=== PATIENT | male | born 1955 | race Caucasian/White ===

== ENCOUNTER → 2016-03-31 | Outpatient (CLI) | payer OTHER ==
[~2016-03-31] MED LIST: ALL180 PO; ASCO1CHW17 PO; CHOLTAB3 PO; CYAN1DRO INJ; FLINTSTONES PO; FURO20TA PO; IRON PO; NAPR1TAB9 PO; OMEP20CA9 PO; OXYBUTYNIN CL PO; POTA-327 PO; VIT D PO; WARF-284 PO; WARF10TA PO; [UNRECOGNIZED DRUG - OTHER] PO
== END | disposition home or self-care (01) ==
LOC: C.LABBFT 13:47
PROVIDERS: ATTEND Internal Medicine
DX: Z11.59 Encounter for screening for other viral diseases (principal)

== ENCOUNTER 2016-12-03 14:17 | Inpatient (IN) | payer OTHER ==
[~2016-12-03] VITALS: Ht 188 cm; Wt 178.3 kg
--- NOTE | 2016-12-03 15:26 | EMERGENCY ROOM VISIT NOTE ---
History Report prepared by Niya: Huong Sepulveda Under the Supervision of: Dr. Bairon Shankar D.O. First contact with patient: 14:52 Chief Complaint: ILLNESS Stated Complaint: FLUID BUILD-UP RT LEG AND LUNG SAC History of Present Illness The patient is a 61 year old male who presents to the Emergency Room with complaints of persistent right leg swelling starting last week. He has tried taking double of his water pill to try and decrease the swelling to no relief. He notes redness to his right leg. He denies having any calf pain. He feels SOB and thinks that there is fluid in his lung. He has never had this before. His abdomen has been bigger than usual. He has some cough. He notes that he had flu last week with chills, diaphoresis, and diarrhea which has improved on its own. He denies any chest pain, abdominal pain, back pain, or fever. He is urinating a lot. He is not SOB with walking. He has a history of gastric bypass. He states that he had water around his heart after the gastric bypass. He is on a potassium pill and warfarin. Source of History: patient Onset: last week Position: leg (right) Quality: other (swelling) Timing: other (persistent) Associated Symptoms: + cough, + SOB, No fevers, No chest pain, No abdominal pain, No back pain Note: Pt reports right leg redness, larger abdomen. Pt denies calf tenderness. Review of Systems See HPI for pertinent positives & negatives. A total of 10 systems reviewed and were otherwise negative. Past Medical & Surgical Medical Problems: (1) Fluid overload (2) New onset atrial fibrillation Surgical Problems: (1) S/P gastric bypass Family History No pertinent family history stated. Social History Smoking Status: Never Smoker Occupation Status: employed Current/Historical Medications Scheduled Ascorbic Acid (Vitamin C Adult Gummies 125 mg), 1 TAB PO QAM Cyanocobalamin (Vitamin B12), 1,000 MCG INJ Q2MOS Ergocalciferol (Vitamin D), 400 INTER.UNIT PO QAM Fexofenadine Hcl (Anju *), 180 MG PO QAM Furosemide (Lasix), 20 MG PO QAM Omeprazole (Prilosec), 20 MG PO QAM Oxybutynin Chloride (Oxybutynin Chloride), 5 MG PO BID Potassium Ext Rel (Klor-Con), 10 MEQ PO QAM Warfarin Sodium (Warfarin Sodium), 7.5 MG PO DAILY [Flintstones + Iron], 1 TABLET PO QAM [Viactiv Luigi+Vit D/K], 1 CAPSULE PO QAM Allergies Coded Allergies: No Known Allergies (Unverified , 12/03/16) Physical Exam Vital Signs Date Time Temp Pulse Resp B/P (MAP) Pulse Ox O2 Delivery O2 Flow Rate FiO2 12/03/16 16:21 98 20 142/75 93 Room Air 12/03/16 16:10 101 12/03/16 15:28 95 Room Air 12/03/16 14:30 36.5 105 18 144/82 95 Room Air Physical Exam GENERAL: Patient is awake, alert, and non anxious appearing. EYES: The conjunctivae are clear. The pupils are round and reactive. EARS, NOSE, MOUTH AND THROAT: The nose is without any evidence of any deformity. Mucous membranes are moist tongue is midline NECK: The neck is nontender and supple. RESPIRATORY: Lung sounds diminished at both bases. Rales at both bases. No significant tachypnea or conversational dyspnea noted. CARDIOVASCULAR: Tachycardic, but regular. No definite murmurs noted. GASTROINTESTINAL: The abdomen is moderately distended, but soft. No tenderness, guarding, or rigidity. MUSCULOSKELETAL/EXTREMITIES: There is no evidence of gross deformity full range of motion is noted in the hips and shoulders SKIN: There is significant pedal edema noted bilaterally, right greater than left. Venous stasis changes noted right greater than left. NEUROLOGIC: Patient is awake alert and oriented x3 Medical Decision & Procedures ER Provider Diagnostic Interpretation: X-ray results as stated below per interpretation by me and the radiologist. Radiology results as stated below per my review and radiologist interpretation: CHEST ONE VIEW PORTABLE CLINICAL HISTORY: Respiratory distress. Dyspnea. COMPARISON STUDY: Chest radiograph June 03, 2015. FINDINGS: Lung volumes are mildly diminished. No pneumothorax or pleural effusion is present. Opacity along the left heart border likely reflects epicardial fat pad. There is no consolidation to suggest pneumonia and there is no evidence of pulmonary edema. Cardiomediastinal silhouette is stable. Old left-sided rib deformities are present. IMPRESSION: No acute cardiopulmonary findings. Electronically signed by: Darinel Singh M.D. 12/03/2016 3:33 PM Dictated Date/Time: 12/03/2016 3:32 PM BILATERAL LOWER EXTREMITY VENOUS DOPPLER CLINICAL HISTORY: Lower extremity swelling. COMPARISON STUDY: Right lower extremity venous Doppler February 22, 2012. TECHNIQUE: Sonography of the deep venous system of the bilateral lower extremities was performed. Compression and augmentation were evaluated. FINDINGS: This exam is compromised by suboptimal penetration. No deep venous thrombus was identified although the right popliteal and bilateral calf veins were not well visualized on this exam. IMPRESSION: Technically compromised exam due to suboptimal penetration but no deep venous thrombus identified within either lower extremity. Electronically signed by: Darinel Singh M.D. 12/03/2016 5:02 PM Dictated Date/Time: 12/03/2016 5:00 PM Laboratory Results 12/03/16 15:45 Red Blood Count 4.37, Mean Corpuscular Volume 87.6, Mean Corpuscular Hemoglobin 28.4, Mean Corpuscular Hemoglobin Concent 32.4, Mean Platelet Volume 9.1, Neutrophils (%) (Auto) 71.8, Lymphocytes (%) (Auto) 17.0, Monocytes (%) (Auto) 7.5, Eosinophils (%) (Auto) 1.8, Basophils (%) (Auto) 0.3, Neutrophils # (Auto) 5.68, Lymphocytes # (Auto) 1.34, Monocytes # (Auto) 0.59, Eosinophils # (Auto) 0.14, Basophils # (Auto) 0.02 12/03/16 15:45 Test 12/03/16 15:25 12/03/16 15:45 12/03/16 15:55 Urine Color DK YELLOW Urine Appearance CLEAR (CLEAR) Urine pH 5.5 (4.5-7.5) Urine Specific [place] 1.017 (1.000-1.030) Urine Protein TRACE (NEG) Urine Glucose (UA) NEG (NEG) Urine Ketones NEG (NEG) Urine Occult Blood 1+ (NEG) Urine Nitrite NEG (NEG) Urine Bilirubin NEG (NEG) Urine Urobilinogen NEG (NEG) Urine Leukocyte Esterase SMALL (NEG) Urine WBC (Auto) 5-10 /hpf (0-5) Urine RBC (Auto) 10-30 /hpf (0-4) Urine Hyaline Casts (Auto) 1-5 /lpf (0-5) Urine Epithelial Cells (Auto) 10-20 /lpf (0-5) Urine Bacteria (Auto) NEG (NEG) White Blood Count 7.90 K/uL (4.8-10.8) Red Blood Count 4.37 M/uL (4.7-6.1) Hemoglobin 12.4 g/dL (14.0-18.0) Hematocrit 38.3 % (42-52) Mean Corpuscular Volume 87.6 fL (80-100) Mean Corpuscular Hemoglobin 28.4 pg (25-34) Mean Corpuscular Hemoglobin Concent 32.4 g/dl (32-36) Platelet Count 261 K/uL (130-400) Mean Platelet Volume 9.1 fL (7.4-10.4) Neutrophils (%) (Auto) 71.8 % Lymphocytes (%) (Auto) 17.0 % Monocytes (%) (Auto) 7.5 % Eosinophils (%) (Auto) 1.8 % Basophils (%) (Auto) 0.3 % Neutrophils # (Auto) 5.68 K/uL (1.4-6.5) Lymphocytes # (Auto) 1.34 K/uL (1.2-3.4) Monocytes # (Auto) 0.59 K/uL (0.11-0.59) Eosinophils # (Auto) 0.14 K/uL (0-0.5) Basophils # (Auto) 0.02 K/uL (0-0.2) RDW Standard Deviation 48.2 fL (36.4-46.3) RDW Coefficient of Variation 14.9 % (11.5-14.5) Immature Granulocyte % (Auto) 1.6 % Immature Granulocyte # (Auto) 0.13 K/uL (0.00-0.02) Prothrombin Time 26.8 SECONDS (9.0-12.0) Prothromb Time International Ratio 2.4 (0.9-1.1) Activated Partial Thromboplast Time 42.7 SECONDS (21.0-31.0) Partial Thromboplastin Ratio 1.6 Anion Gap 8.0 mmol/L (3-11) Est Creatinine Clear Calc Drug Dose 82.9 ml/min Estimated GFR () 50.0 Estimated GFR (Non- 43.2 BUN/Creatinine Ratio 15.6 (10-20) Calcium Level 8.5 mg/dl (8.5-10.1) Magnesium Level 2.0 mg/dl (1.8-2.4) Total Bilirubin 0.3 mg/dl (0.2-1) Aspartate Amino Transf (AST/SGOT) 23 U/L (15-37) Alanine Aminotransferase (ALT/SGPT) 36 U/L (12-78) Alkaline Phosphatase 76 U/L (45-117) Total Creatine Kinase 57 U/L (39-308) Creatine Kinase MB 0.7 ng/ml (0.5-3.6) Creatine Kinase MB Ratio 1.2 (0-3.0) Troponin I < 0.015 ng/ml (0-0.045) Pro-B-Type Natriuretic Peptide 815 pg/ml (0-900) Total Protein 7.5 gm/dl (6.4-8.2) Albumin 2.8 gm/dl (3.4-5.0) Globulin 4.7 gm/dl (2.5-4.0) Albumin/Globulin Ratio 0.6 (0.9-2) Thyroid Stimulating Hormone (TSH) 3.270 uIu/ml (0.300-4.500) Free Thyroxine 1.05 ng/dl (0.80-1.60) Chemistry Specimen Hemolysis Bedside Lactic Acid Venous 1.72 mmol/L (0.90-1.70) Laboratory results per my review. ECG Indication: SOB/dyspnea Rate (beats per minute): 108 Rhythm: atrial fibrillation Findings: RBBB, other (no PVC) Comparison ECG Date: 19-Mar-2015 Change: A fib is new. ED Course 1504: The patient was evaluated in room A3. A complete history and physical examination were performed. 1716: Upon reevaluation, the patient is stable. He states that he does not have a history of atrial fibrillation. I discussed results and treatment plan with him. He verbalizes agreement and understanding. The patient will be evaluated for further management and care. 1750: I discussed the patient's case [place]. [place], [facility] [place] The patient will be evaluated for further management. Medical Decision Prior records/ancillary studies reviewed. Triage Nursing notes reviewed. Additional history obtained from the family. The patient's history was concerning for respiratory difficulties. Differential diagnosis: Etiologies such as infections, reactive airway disease, pneumonia, pneumothorax , COPD, CHF, cardiac ischemia, pulmonary embolism, musculoskeletal, gastrointestinal, as well as others were entertained. The patient is a 61-year-old male who presented to emergency department for an evaluation of lower extremity swelling shortness of breath and generalized weakness. The patient was found to be a new onset atrial fibrillation. I discussed the patient's laboratory and radiographic studies with him. I discussed starting the patient on a calcium channel edwin with the on-call [facility] hospitalist. They have agreed to evaluate the patient prior to starting this medication. I discussed the patient's laboratory and radiographic studies with him. Medication Reconcilliation Current Medication List: was personally reviewed by me Blood Pressure Screening Patient's blood pressure: Normal blood pressure Blood pressure disposition: Did not require urgent referral Consults Time Called: 1721 Consulting Physician: Dr. Chow, [facility] [place] Returned Call: 1750 I discussed the patient's case with him. The patient will be evaluated for further management. Impression Primary Impression: Atrial fibrillation with RVR Additional Impressions: SOB (shortness of breath) Leg edema Scribe Attestation The scribe's documentation has been prepared under my direction and personally reviewed by me in its entirety. I confirm that the note above accurately reflects all work, treatment, procedures, and medical decision making performed by me. Departure Information Dispostion Being Evaluated By Hospitalist Referrals No Doctor, Assigned (PCP) Patient Instructions My [facility] Problem Qualifiers
--- NOTE | 2016-12-03 15:35 | DIAGNOSTIC IMAGING REPORT ---
CHEST ONE VIEW PORTABLE CLINICAL HISTORY: Respiratory distress. Dyspnea. COMPARISON STUDY: Chest radiograph June 03, 2015. FINDINGS: Lung volumes are mildly diminished. No pneumothorax or pleural effusion is present. Opacity along the left heart border likely reflects epicardial fat pad. There is no consolidation to suggest pneumonia and there is no evidence of pulmonary edema. Cardiomediastinal silhouette is stable. Old left-sided rib deformities are present. IMPRESSION: No acute cardiopulmonary findings. Electronically signed by: Darinel Singh M.D. 12/03/2016 3:33 PM Dictated Date/Time: 12/03/2016 3:32 PM
[2016-12-03 15:39] LABS: URINE APPEARANCE CLEAR (CLEAR); URINE BILIRUBIN NEG (NEG); URINE COLOR DK YELLOW; URINE NITRITE NEG (NEG); URINE PH 5.5 (4.5-7.5); URINE SPECIFIC GRAVITY 1.017 (1.000-1.030); UROBILINOGEN NEG (NEG)
[2016-12-03 15:40] LABS: MANUAL MICROSCOPIC REQUIRED? NO; REVIEW REQ? NO
[2016-12-03] MEDS ORDERED: DTR5 PO (15:41)
[2016-12-03 15:59] LABS: BASO % 0.3 %; BASO ABS # 0.02 K/uL (0-0.2); COMPLETE YES; EOS % 1.8 %; HEMATOCRIT 38.3 % (42-52); IG% 1.6 %; LYMPH ABS # 1.34 K/uL (1.2-3.4); MEAN CELL VOLUME 87.6 fL (80-100); MEAN CORPUSCULAR HEMOGLOBIN 28.4 pg (25-34); MEAN CORPUSCULAR HGB CONC 32.4 g/dl (32-36); MEAN PLATELET VOLUME 9.1 fL (7.4-10.4); MONO % 7.5 %; NEUT % 71.8 %; PLATELET COUNT 261 K/uL (130-400); RED BLOOD COUNT 4.37 M/uL (4.7-6.1)
[2016-12-03 16:12] LABS: INR 2.4 (0.9-1.1); PARTIAL THROMBOPLASTIN RATIO 1.6; PROTHROMBIN TIME (PATIENT) 26.8 SECONDS (9.0-12.0)
[2016-12-03 16:49] LABS: ALB/GLOB RATIO 0.6 (0.9-2); ALKALINE PHOSPHATASE 76 U/L (45-117); ALT/SGPT 36 U/L (12-78); AST/SGOT 23 U/L (15-37); BLOOD UREA NITROGEN 27 mg/dl (7-18); BUN/CREATININE RATIO 15.6 (10-20); CALCIUM 8.5 mg/dl (8.5-10.1); CARBON DIOXIDE 27 mmol/L (21-32); CHLORIDE 106 mmol/L (98-107); CKMB/CK RATIO 1.2 (0-3.0); GLUCOSE 157 mg/dl (70-99); POTASSIUM 4.2 mmol/L (3.5-5.1); SODIUM 141 mmol/L (136-145)
--- NOTE | 2016-12-03 17:03 | DIAGNOSTIC IMAGING REPORT ---
BILATERAL LOWER EXTREMITY VENOUS DOPPLER CLINICAL HISTORY: Lower extremity swelling. COMPARISON STUDY: Right lower extremity venous Doppler February 22, 2012. TECHNIQUE: Sonography of the deep venous system of the bilateral lower extremities was performed. Compression and augmentation were evaluated. FINDINGS: This exam is compromised by suboptimal penetration. No deep venous thrombus was identified although the right popliteal and bilateral calf veins were not well visualized on this exam. IMPRESSION: Technically compromised exam due to suboptimal penetration but no deep venous thrombus identified within either lower extremity. Electronically signed by: Darinel Singh M.D. 12/03/2016 5:02 PM Dictated Date/Time: 12/03/2016 5:00 PM
[2016-12-03] MEDS: DILTIAZEM HCL 5 MG/ML 5 ML VIAL IV STA ×2 (17:43→17:51)
[2016-12-03 18:15] VITALS: O2SAT 95; BMI 53.8
[2016-12-03] MEDS ORDERED: ACETAMINOPHEN 325 MG TAB PO PRN (18:15)
[2016-12-03] MEDS ORDERED: NITROGLYCERIN 0.4 MG SL PER TAB CHARGE SL PRN (18:15)
[2016-12-03] MEDS ORDERED: DILTIAZEM HCL 30 MG TAB PO ONE (18:15)
[2016-12-03] MEDS ORDERED: ZOLPIDEM TARTRATE 5 MG TAB PO PRN (18:15)
--- NOTE | 2016-12-03 19:08 | History and Physical ---
History & Physical Date & Time of Service: Dec 03, 2016 at 18:55 Chief Complaint: Fluid Build-Up Rt Leg And Lung Sac Primary Care Physician: Benitez Millan M.D. History of Present Illness Source: patient, family The patient is a 61-year-old male who presents to the emergency department with worsening right leg swelling and mild shortness of breath that began since the previous week. He has a history of RLE DVT for which she is on Coumadin chronically. He did try doubling his Lasix dose over the past few days, with no significant improvement in swelling. He reports that he is not able to lay back ever his breathing due to his obesity, but does feels that is worse since that time. Past Medical/Surgical History Surgical Problems: (1) S/P gastric bypass Status: Resolved Family History Noncontributory Social History Smoking Status: Never Smoker Smokeless Tobacco Use: No Alcohol Use: none Drug Use: none Occupational Status: employed Immunizations History of Influenza Vaccine: No History of Tetanus Vaccine?: No History of Pneumococcal: No History of Hepatitis B Vaccine: No Multi-Drug Resistant Organisms History of MDRO: Yes Type of MDRO: VRE Allergies Coded Allergies: No Known Allergies (Unverified , 12/03/16) Home Medications Scheduled Ascorbic Acid (Vitamin C Adult Gummies 125 mg), 1 TAB PO QAM Cyanocobalamin (Vitamin B12), 1,000 MCG INJ Q2MOS Ergocalciferol (Vitamin D), 400 INTER.UNIT PO QAM Fexofenadine Hcl (Naju *), 180 MG PO QAM Furosemide (Lasix), 20 MG PO QAM Omeprazole (Prilosec), 20 MG PO QAM Oxybutynin Chloride (Oxybutynin Chloride), 5 MG PO BID Potassium Ext Rel (Klor-Con), 10 MEQ PO QAM Warfarin Sodium (Warfarin Sodium), 7.5 MG PO DAILY [Flintstones + Iron], 1 TABLET PO QAM [Viactiv Luigi+Vit D/K], 1 CAPSULE PO QAM Review of Systems The patient denies chest pain, palpitations, cough, vision change, hearing change, sore throat, fevers, chills, sweats, weight change, fatigue, nausea, vomiting, diarrhea or constipation, abdominal pain, pelvic pain, blood in urine or stool, dysuria, urinary frequency or urgency, lightheadedness , dizziness, headache, memory loss, rash, abnormal bruising or bleeding, imbalance, focal or generalized weakness, numbness or tingling in arms or legs, generalized arthralgias or myalgias, back or neck pain, or night sweats. The review of systems is otherwise negative other than for that already noted above, and at least 10 systems have been reviewed. Physical Exam Vital Signs Date Time Temp Pulse Resp B/P (MAP) Pulse Ox O2 Delivery O2 Flow Rate FiO2 12/03/16 18:15 95 Room Air 12/03/16 18:11 100 18 148/88 95 Room Air 12/03/16 16:21 98 20 142/75 93 Room Air 12/03/16 16:10 101 12/03/16 15:28 95 Room Air 12/03/16 14:30 36.5 105 18 144/82 95 Room Air The patient is awake, well-developed and adequately nourished, alert and oriented 3, normocephalic and atraumatic, morbidly obese, lying in bed and in no acute distress. HEENT--PERRL, EOMI, mucous membranes and oropharynx normal. Neck--supple, no JVD or bruits, thyroid normal, trachea midline, no adenopathy. Heart--normal S1 and S2, no extra beats, no murmurs, rubs or gallops. Lungs--clear bilaterally but decreased breath sounds throughout, no respiratory distress, no accessory muscle use. Abdomen--normal bowel sounds and soft, nontender and nondistended, no hernias or masses, no organomegaly. Extremities--no cyanosis, clubbing. There is bilaterally 2-3+ pitting pretibial edema. There are good distal pulses b/l. Dermatologic--right lower extremity with rash at the stocking line. Neurologic--cranial nerves II through XII grossly intact. Rheumatologic--normal range of motion limited by obesity Psychiatric--normal affect. Diagnostics Laboratory Results Results Past 24 Hours Test 12/03/16 15:25 12/03/16 15:45 12/03/16 15:55 Range/Units Urine Color DK YELLOW Urine Appearance CLEAR CLEAR Urine pH 5.5 4.5-7.5 Urine Specific [place] 1.017 1.000-1.030 Urine Protein TRACE NEG Urine Glucose (UA) NEG NEG Urine Ketones NEG NEG Urine Occult Blood 1+ NEG Urine Nitrite NEG NEG Urine Bilirubin NEG NEG Urine Urobilinogen NEG NEG Urine Leukocyte Esterase SMALL NEG Urine WBC (Auto) 5-10 0-5 /hpf Urine RBC (Auto) 10-30 0-4 /hpf Urine Hyaline Casts (Auto) 1-5 0-5 /lpf Urine Epithelial Cells (Auto) 10-20 0-5 /lpf Urine Bacteria (Auto) NEG NEG White Blood Count 7.90 4.8-10.8 K/uL Red Blood Count 4.37 4.7-6.1 M/uL Hemoglobin 12.4 14.0-18.0 g/dL Hematocrit 38.3 42-52 % Mean Corpuscular Volume 87.6 80-100 fL Mean Corpuscular Hemoglobin 28.4 25-34 pg Mean Corpuscular Hemoglobin Concent 32.4 32-36 g/dl Platelet Count 261 130-400 K/uL Mean Platelet Volume 9.1 7.4-10.4 fL Neutrophils (%) (Auto) 71.8 % Lymphocytes (%) (Auto) 17.0 % Monocytes (%) (Auto) 7.5 % Eosinophils (%) (Auto) 1.8 % Basophils (%) (Auto) 0.3 % Neutrophils # (Auto) 5.68 1.4-6.5 K/uL Lymphocytes # (Auto) 1.34 1.2-3.4 K/uL Monocytes # (Auto) 0.59 0.11-0.59 K/uL Eosinophils # (Auto) 0.14 0-0.5 K/uL Basophils # (Auto) 0.02 0-0.2 K/uL RDW Standard Deviation 48.2 36.4-46.3 fL RDW Coefficient of Variation 14.9 11.5-14.5 % Immature Granulocyte % (Auto) 1.6 % Immature Granulocyte # (Auto) 0.13 0.00-0.02 K/uL Prothrombin Time 26.8 9.0-12.0 SECONDS Prothromb Time International Ratio 2.4 0.9-1.1 Activated Partial Thromboplast Time 42.7 21.0-31.0 SECONDS Partial Thromboplastin Ratio 1.6 Sodium Level 141 136-145 mmol/L Potassium Level 4.2 3.5-5.1 mmol/L Chloride Level 106 98-107 mmol/L Carbon Dioxide Level 27 21-32 mmol/L Anion Gap 8.0 3-11 mmol/L Blood Urea Nitrogen 27 7-18 mg/dl Creatinine 1.70 0.60-1.40 mg/dl Est Creatinine Clear Calc Drug Dose 82.9 ml/min Estimated GFR () 50.0 Estimated GFR (Non- 43.2 BUN/Creatinine Ratio 15.6 10-20 Random Glucose 157 70-99 mg/dl Calcium Level 8.5 8.5-10.1 mg/dl Magnesium Level 2.0 1.8-2.4 mg/dl Total Bilirubin 0.3 0.2-1 mg/dl Aspartate Amino Transf (AST/SGOT) 23 15-37 U/L Alanine Aminotransferase (ALT/SGPT) 36 12-78 U/L Alkaline Phosphatase 76 45-117 U/L Total Creatine Kinase 57 39-308 U/L Creatine Kinase MB 0.7 0.5-3.6 ng/ml Creatine Kinase MB Ratio 1.2 0-3.0 Troponin I < 0.015 0-0.045 ng/ml Pro-B-Type Natriuretic Peptide 815 0-900 pg/ml Total Protein 7.5 6.4-8.2 gm/dl Albumin 2.8 3.4-5.0 gm/dl Globulin 4.7 2.5-4.0 gm/dl Albumin/Globulin Ratio 0.6 0.9-2 Thyroid Stimulating Hormone (TSH) 3.270 0.300-4.500 uIu/ml Free Thyroxine 1.05 0.80-1.60 ng/dl Chemistry Specimen Hemolysis Bedside Lactic Acid Venous 1.72 0.90-1.70 mmol/L Microbiology Results 12/03/16 Blood Culture, Received Pending 12/03/16 Blood Culture, Received Pending Diagnostic Radiology Patient Name: FREDDY MCNEIL Unit Number: [id number] Dictated: 12/03/161699 Transcribed: 12/03/161699 JA Printed Date/Time: [~ rep prt dt]/[~ rep prt tm] [~ rep ct labl] - [~ rep ct ivnm] [facility] [place] [address] Dictated: 12/03/161699 Transcribed: 12/03/161699 JA Printed Date/Time: [~ rep prt dt]/[~ rep prt tm] [~ rep ct labl] - [~ rep ct ivnm] [~ rep ct add3]] BILATERAL LOWER EXTREMITY VENOUS DOPPLER CLINICAL HISTORY: Lower extremity swelling. COMPARISON STUDY: Right lower extremity venous Doppler February 22, 2012. TECHNIQUE: Sonography of the deep venous system of the bilateral lower extremities was performed. Compression and augmentation were evaluated. FINDINGS: This exam is compromised by suboptimal penetration. No deep venous thrombus was identified although the right popliteal and bilateral calf veins were not well visualized on this exam. IMPRESSION: Technically compromised exam due to suboptimal penetration but no deep venous thrombus identified within either lower extremity. Electronically signed by: Darinel Singh M.D. 12/03/2016 5:02 PM Dictated Date/Time: 12/03/2016 5:00 PM The status of this report is Signed. Draft = Not yet reviewed or approved by Radiologist. Signed = Reviewed and approved by Radiologist. <AttendingPhy></AttendingPhy> <FamilyPhy>Benitez Millan M.D.</FamilyPhy> < PrimaryPhy>Benitez Millan M.D.</PrimaryPhy> <UnitNumber>[id number]</UnitNumber > <VisitNumber>[id number]</VisitNumber> <PatientName>KISHA MCNEILADEOLA Marie</ PatientName> <DateOfBirth>1955</DateOfBirth> <Location>C.HEMA</Location> < ServiceDate>12/03/16</ServiceDate> <MNE>ESINDI</MNE> <OrderingPhy>Bairon Shankar D.O.</OrderingPhy> <OrderingPhyMNE>f rep ord dr hernandez</OrderingPhyMNE> <DictatingPhyMNE>f rep dict dr hernandez</DictatingPhyMNE> <CCListMNE>f rep ct mne</ CCListMNE> <AdmittingPhyMNE>f pt admit dr hernandez</AdmittingPhyMNE> <AttendingPhyMNE >f pt attend dr hernandez</AttendingPhyMNE> <ConsultingPhyMNE>f pt consult dr hernandez</ConsultingPhyMNE> <FamilyPhyMNE>f pt fam dr hernandez</FamilyPhyMNE> <OtherPhyMNE>f pt other dr hernandez</OtherPhyMNE> < PrimaryPhyMNE>f pt prim care dr hernandez</PrimaryPhyMNE> <ReferringPhyMNE>f pt referring dr hernandez</ReferringPhyMNE> Patient Name: FREDDY MCNEIL Unit Number: [id number] Dictated: 12/03/161531 Transcribed: 12/03/161531 JA Printed Date/Time: [~ rep prt dt]/[~ rep prt tm] [~ rep ct labl] - [~ rep ct ivnm] [facility] [place] [place] [address] Dictated: 12/03/161531 Transcribed: 12/03/161531 JA Printed Date/Time: [~ rep prt dt]/[~ rep prt tm] [~ rep ct labl] - [~ rep ct ivnm] [~ rep ct add3]] CHEST ONE VIEW PORTABLE CLINICAL HISTORY: Respiratory distress. Dyspnea. COMPARISON STUDY: Chest radiograph June 03, 2015. FINDINGS: Lung volumes are mildly diminished. No pneumothorax or pleural effusion is present. Opacity along the left heart border likely reflects epicardial fat pad. There is no consolidation to suggest pneumonia and there is no evidence of pulmonary edema. Cardiomediastinal silhouette is stable. Old left-sided rib deformities are present. IMPRESSION: No acute cardiopulmonary findings. Electronically signed by: Darinel Singh M.D. 12/03/2016 3:33 PM Dictated Date/Time: 12/03/2016 3:32 PM The status of this report is Signed. Draft = Not yet reviewed or approved by Radiologist. Signed = Reviewed and approved by Radiologist. <AttendingPhy></AttendingPhy> <FamilyPhy>Benitez Millan M.D.</FamilyPhy> < PrimaryPhy>Benitez Millan M.D.</PrimaryPhy> <UnitNumber>[id number]</UnitNumber > <VisitNumber>[id number]</VisitNumber> <PatientName>FREDDY MCNEIL</ PatientName> <DateOfBirth>1955</DateOfBirth> <Location>C.HEMA</Location> < ServiceDate>12/03/16</ServiceDate> <MNE>ESINDI</MNE> <OrderingPhy>Bairon Shankar D.O.</OrderingPhy> <OrderingPhyMNE>f rep ord dr hernandez</OrderingPhyMNE> <DictatingPhyMNE>f rep dict dr hernandez</DictatingPhyMNE> <CCListMNE>f rep ct mne</ CCListMNE> <AdmittingPhyMNE>f pt admit dr hernandez</AdmittingPhyMNE> <AttendingPhyMNE >f pt attend dr hernandez</AttendingPhyMNE> <ConsultingPhyMNE>f pt consult dr hernandez</ConsultingPhyMNE> <FamilyPhyMNE>f pt fam dr hernandez</FamilyPhyMNE> <OtherPhyMNE>f pt other dr hernandez</OtherPhyMNE> < PrimaryPhyMNE>f pt prim care dr hernandez</PrimaryPhyMNE> <ReferringPhyMNE>f pt referring dr hernandez</ReferringPhyMNE> EKG With bifascicular block at 108 bpm. In no acute ST-T changes Impression Assessment and Plan New onset atrial fibrillation with controlled response/fluid overload-- The patient will be admitted to telemetry for serial cardiac enzymes, cardiac rhythm monitoring and a 2-D echocardiogram with Dopplers. Place on Cardizem 30 mg by mouth 4 times a day with hold parameters. Continue warfarin for DVT, and now atrial fibrillation, and follow serial INR Consult cardiology. Give albumin with Lasix 40 mg IV 1 tonight. Lasix 40 mg IV every morning side tomorrow morning Right lower extremity cellulitis-- Place on ceftriaxone IV and Bactrim DS by mouth twice a day. GERD--change omeprazole to pantoprazole. Bladder spasm--continue oxybutynin. Seasonal allergy--continue Anju. Level of Care Telemetry Advanced Directives Existing Advance Directive: No Existing Living Will: No Existing Power of Motion Picture Director: No Resuscitation Status FULL RESUSCITATION VTE Prophylaxis VTE Risk Assessment Done? Y/N: Yes Risk Level: Moderate Given or contraindicated: Warfarin (Coumadin)
[2016-12-03 19:36] VITALS: BP 150/84; PULSE 91; TEMP 36.7; O2SAT 94
[2016-12-03 20:00] VITALS: O2SAT 94
[2016-12-03] MEDS ORDERED: ALBUMIN 25% 50 ML with FUROSEMIDE INJ 40 MG IV ONE ×2 (20:30)
[2016-12-03] MEDS: CEFTRIAXONE SOD INJ 1 GM in DEXTROSE 5% ADD-VANTAGE 50ML 50 ML IV SCH (20:33)
[2016-12-03] MEDS: WARFARIN SOD 7.5 MG TAB PO SCH (20:54)
[2016-12-03] MEDS: OXYBUTYNIN CHLORIDE 5 MG TAB PO SCH (20:58)
[2016-12-03 23:11] VITALS: BP 139/81; PULSE 105; TEMP 36.4; O2SAT 92
[2016-12-03] MEDS: DILTIAZEM HCL 30 MG TAB PO SCH (23:11)
[2016-12-03 23:59] VITALS: O2SAT 94
[2016-12-04] VITALS (10 sets, daily range): BP systolic 102–156; BP diastolic 65–96; PULSE 85–144; TEMP 36.4–36.9; O2SAT 90–95
[2016-12-04 06:13] LABS: INR 2.3 (0.9-1.1)
[2016-12-04] MEDS ORDERED: SULFAMETHOXAZOLE/TRIMETHOPRIM DS 800/160MG TAB PO SCH (07:30)
[2016-12-04] MEDS: DILTIAZEM HCL 30 MG TAB PO SCH ×4 (07:47→20:06)
[2016-12-04] MEDS: PANTOprazole SOD 40 MG TAB PO SCH (07:47)
[2016-12-04] MEDS: CHOLECALCIFEROL 400 INTER.UNIT TAB PO SCH (07:47)
[2016-12-04] MEDS: OXYBUTYNIN CHLORIDE 5 MG TAB PO SCH ×2 (07:47→20:06)
[2016-12-04] MEDS: FEXOFENADINE HCL 180 MG TAB PO SCH (07:47)
[2016-12-04] MEDS: POTASSIUM CHLORIDE 10 MEQ TABCR PO SCH (07:48)
[2016-12-04 08:50] LABS: MEAN CELL VOLUME 87.5 fL (80-100); MEAN CORPUSCULAR HEMOGLOBIN 29.1 pg (25-34); MEAN CORPUSCULAR HGB CONC 33.2 g/dl (32-36); MEAN PLATELET VOLUME 9.3 fL (7.4-10.4); PLATELET COUNT 240 K/uL (130-400); RED BLOOD COUNT 4.23 M/uL (4.7-6.1); WHITE BLOOD COUNT 7.97 K/uL (4.8-10.8)
[2016-12-04 08:53] LABS: BUN/CREATININE RATIO 14.7 (10-20); CALCIUM 8.4 mg/dl (8.5-10.1); CREATININE 1.52 mg/dl (0.60-1.40); POTASSIUM 3.7 mmol/L (3.5-5.1)
[2016-12-04] MEDS ORDERED: FUROSEMIDE INJ 40 MG in SYRINGE 0 ML IV SCH (09:00)
--- NOTE | 2016-12-04 09:56 | Cardiology Consultation ---
Cardiology Consultation Date of Consultation: Dec 04, 2016. Requesting Physician: Randell Chow M.D. Attending Physician: Bairon Baldwin M.D. Reason for Consultation: Newly Diagnosed Atrial Fibrillation with elevated ventricular response rate. Pt evaluation today including: conversation w/ patient, physical exam, chart review, lab review, review of studies, conversation w/ professional services consultant, review of inpatient medication list, conversation w/ attending History of Present Illness Mr. 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 He was re-evaluated by me this morning. The patient states that he had noticed increased swelling to his right calf over the past several weeks, where he previously had a DVT. He did attempt to double his dosage of Furosemide, which did cause him increased frequency of urination, but as the swelling persisted he went to the ED for further evaluation yesterday. Upon arrival to the ED, the patient was found to be in atrial fibrillation at 108 BPM on EKG. He states that he has never been diagnosed with atrial fibrillation in the past. The patient does note that over the past few weeks, he has had to sleep in a more upright position as he has felt too short of breath to lay flat, but he denies experiencing any chest pain, palpitations, lightheadedness, dizziness, PND, presyncope or syncopal episodes. While in the ED, the patient did have a RLE venous doppler with no evidence of DVT and a chest x-ray with no acute pulmonary findings. Today, the patient states that he is feeling well. He has not experienced any further symptoms since being admitted to the hospital, and he has no acute complaints at this time. Past Medical/Surgical History NIDDM, gastric bypass for history of morbid obesity, RLE DVT, PE, abscess of buttocks, cellulitis, GERD, and ischemic colitis . Family History FH: coronary artery disease Social History Smoking Status: Never Smoker History of Alcohol Use: Yes (2 A DAY) All Other Systems: Reviewed and Negative Allergies Coded Allergies: No Known Allergies (Unverified , 12/03/16) Medications Current Inpatient Medications Medications (Trade) Dose Ordered Sig/Rhea Route Start Time Stop Time Status Last Admin Dose Admin Acetaminophen (Tylenol Tab) 650 mg Q4H PRN PO 12/03/16 18:15 01/02/17 18:14 Zolpidem Tartrate (Ambien Tab) 5 mg HSZ PRN PO 12/03/16 18:15 01/02/17 18:14 Nitroglycerin (Nitrostat Tab) 0.4 mg UD PRN SL 12/03/16 18:15 01/02/17 18:14 Cholecalciferol (Vitamin D Tab) 400 inter.unit QAM PO 12/04/16 09:00 01/03/17 08:59 12/04/16 07:47 400 INTER.UNIT Fexofenadine HCl (Anju Tab) 180 mg QAM PO 12/04/16 09:00 01/03/17 08:59 12/04/16 07:47 180 MG Oxybutynin Chloride (Ditropan Tab) 5 mg BID PO 12/03/16 21:00 01/02/17 20:59 12/04/16 07:47 5 MG Potassium Chloride (Klor-Con M10) 10 meq QAM PO 12/04/16 09:00 01/03/17 08:59 12/04/16 07:48 10 MEQ Warfarin Sodium (Coumadin Tab) 7.5 mg DAILY@1600 PO 12/03/16 19:00 01/02/17 18:59 12/03/16 20:54 7.5 MG Pantoprazole Sodium (Protonix Tab) 40 mg QAM PO 12/04/16 09:00 01/03/17 08:59 12/04/16 07:47 40 MG Ceftriaxone Sodium 1 gm/ Dextrose 50 ml @ 100 mls/hr Q24H IV 12/03/16 20:00 12/13/16 19:59 12/03/16 20:33 100 MLS/HR Trimethoprim/ Sulfamethoxazole (Septra Ds 800/ 160MG Tab) 1 tab BIDM PO 12/04/16 07:30 12/14/16 07:29 12/04/16 07:47 1 TAB Diltiazem HCl (Cardizem Tab) 30 mg QID PO 12/03/16 21:00 01/02/17 20:59 12/04/16 07:47 30 MG Furosemide 40 mg/ Syringe 4 ml @ 4 mls/min QAM IV 12/04/16 09:00 01/03/17 08:59 10/16/17 07:48 4 MLS/MIN Metoprolol Tartrate (Lopressor Tab) 50 mg BID PO 12/04/16 09:00 01/03/17 08:59 UNV Physical Exam Vital Signs Past 12 Hours Date Time Temp Pulse Resp B/P (MAP) Pulse Ox O2 Delivery O2 Flow Rate FiO2 12/04/16 08:00 95 Room Air 12/04/16 07:30 36.9 85 19 133/89 (104) 91 Room Air 12/04/16 04:14 36.8 100 20 156/96 (116) 90 Room Air 12/04/16 04:00 94 Room Air 12/03/16 23:59 94 Room Air 12/03/16 23:11 36.4 105 18 139/81 (100) 92 Room Air General: Sitting up on the edge of the bed, in no acute distress. HEENT: Normocephalic, atraumatic. Sclera non-icteric. EOMI, PERRLA. Mucous membranes moist. Neck: Trachea midline. JVP at the levels of the clavicles without distension. No carotid bruits. Lungs: Clear to auscultation, bilaterally. No wheezing, rales or rhonchi. Heart: Irregularly irregular rate and rhythm. No murmurs, gallops or rubs. Abdomen: Morbidly obese. Non-tender to palpation. Unable to assess for masses secondary to body habitus. Extremities. Multiple well healing scabs to the bilateral lower extremities. No signs of abscess or active infection. 2+ pitting edema, bilaterally. Neuro: Awake, alert and oriented x 3. Answers all questions appropriately. Data Laboratory Results: Last 24 Hours Test 12/03/16 15:25 12/03/16 15:45 12/03/16 15:55 12/04/16 05:37 Urine Color DK YELLOW Urine Appearance CLEAR Urine pH 5.5 Urine Specific [place] 1.017 Urine Protein TRACE Urine Glucose (UA) NEG Urine Ketones NEG Urine Occult Blood 1+ Urine Nitrite NEG Urine Bilirubin NEG Urine Urobilinogen NEG Urine Leukocyte Esterase SMALL Urine WBC (Auto) 5-10 /hpf Urine RBC (Auto) 10-30 /hpf Urine Hyaline Casts (Auto) 1-5 /lpf Urine Epithelial Cells (Auto) 10-20 /lpf Urine Bacteria (Auto) NEG White Blood Count 7.90 K/uL 7.97 K/uL Red Blood Count 4.37 M/uL 4.23 M/uL Hemoglobin 12.4 g/dL 12.3 g/dL Hematocrit 38.3 % 37.0 % Mean Corpuscular Volume 87.6 fL 87.5 fL Mean Corpuscular Hemoglobin 28.4 pg 29.1 pg Mean Corpuscular Hemoglobin Concent 32.4 g/dl 33.2 g/dl Platelet Count 261 K/uL 240 K/uL Mean Platelet Volume 9.1 fL 9.3 fL Neutrophils (%) (Auto) 71.8 % Lymphocytes (%) (Auto) 17.0 % Monocytes (%) (Auto) 7.5 % Eosinophils (%) (Auto) 1.8 % Basophils (%) (Auto) 0.3 % Neutrophils # (Auto) 5.68 K/uL Lymphocytes # (Auto) 1.34 K/uL Monocytes # (Auto) 0.59 K/uL Eosinophils # (Auto) 0.14 K/uL Basophils # (Auto) 0.02 K/uL RDW Standard Deviation 48.2 fL 48.0 fL RDW Coefficient of Variation 14.9 % 14.8 % Immature Granulocyte % (Auto) 1.6 % Immature Granulocyte # (Auto) 0.13 K/uL Prothrombin Time 26.8 SECONDS 26.0 SECONDS Prothromb Time International Ratio 2.4 2.3 Activated Partial Thromboplast Time 42.7 SECONDS Partial Thromboplastin Ratio 1.6 Sodium Level 141 mmol/L 139 mmol/L Potassium Level 4.2 mmol/L 3.7 mmol/L Chloride Level 106 mmol/L 104 mmol/L Carbon Dioxide Level 27 mmol/L 29 mmol/L Anion Gap 8.0 mmol/L 6.0 mmol/L Blood Urea Nitrogen 27 mg/dl 22 mg/dl Creatinine 1.70 mg/dl 1.52 mg/dl Est Creatinine Clear Calc Drug Dose 82.9 ml/min 88.7 ml/min Estimated GFR () 50.0 57.3 Estimated GFR (Non- 43.2 49.4 BUN/Creatinine Ratio 15.6 14.7 Random Glucose 157 mg/dl 171 mg/dl Calcium Level 8.5 mg/dl 8.4 mg/dl Magnesium Level 2.0 mg/dl Total Bilirubin 0.3 mg/dl Aspartate Amino Transf (AST/SGOT) 23 U/L Alanine Aminotransferase (ALT/SGPT) 36 U/L Alkaline Phosphatase 76 U/L Total Creatine Kinase 57 U/L Creatine Kinase MB 0.7 ng/ml Creatine Kinase MB Ratio 1.2 Troponin I < 0.015 ng/ml Pro-B-Type Natriuretic Peptide 815 pg/ml Total Protein 7.5 gm/dl Albumin 2.8 gm/dl Globulin 4.7 gm/dl Albumin/Globulin Ratio 0.6 Thyroid Stimulating Hormone (TSH) 3.270 uIu/ml Free Thyroxine 1.05 ng/dl Chemistry Specimen Hemolysis Bedside Lactic Acid Venous 1.72 mmol/L Imaging: Chest x-ray: CHEST ONE VIEW PORTABLE CLINICAL HISTORY: Respiratory distress. Dyspnea. COMPARISON STUDY: Chest radiograph June 03, 2015. FINDINGS: Lung volumes are mildly diminished. No pneumothorax or pleural effusion is present. Opacity along the left heart border likely reflects epicardial fat pad. There is no consolidation to suggest pneumonia and there is no evidence of pulmonary edema. Cardiomediastinal silhouette is stable. Old left-sided rib deformities are present. IMPRESSION: No acute cardiopulmonary findings. Electronically signed by: Darinel Singh M.D. 12/03/2016 3:33 PM Dictated Date/Time: 12/03/2016 3:32 PM RLE venous doppler: BILATERAL LOWER EXTREMITY VENOUS DOPPLER CLINICAL HISTORY: Lower extremity swelling. COMPARISON STUDY: Right lower extremity venous Doppler February 22, 2012. TECHNIQUE: Sonography of the deep venous system of the bilateral lower extremities was performed. Compression and augmentation were evaluated. FINDINGS: This exam is compromised by suboptimal penetration. No deep venous thrombus was identified although the right popliteal and bilateral calf veins were not well visualized on this exam. IMPRESSION: Technically compromised exam due to suboptimal penetration but no deep venous thrombus identified within either lower extremity. Electronically signed by: Darinel Singh M.D. 12/03/2016 5:02 PM Dictated Date/Time: 12/03/2016 5:00 PM EK12/03/16 1519: Atrial fibrillation with RVR at 108 BPM with RBBB 12/04/16 0652: Atrial fibrillation with RVR at 102 BPM with RBBB Assessment & Plan Atrial fibrillation with rapid ventricular response rate 1. Start Metoprolol tartrate 50 mg PO BID 2. If patient does not spontaneously convert to sinus rhythm with beta edwin, will start on antiarrhythmic such as Flecainide. 3. If patient still does not convert to sinus rhythm after beta edwin and antiarrhythmic, will consider electrical cardioversion. 4. If electrical cardioversion is agreed upon, NPO at least 4-6 hour prior to procedure. 5. Continue chronic Coumadin for a goal INR of 2.0 to 3.0. Hannah CHE
[2016-12-04] MEDS: METOPROLOL TARTRATE 50 MG TAB PO SCH ×2 (10:01→20:07)
--- NOTE | 2016-12-04 10:53 | CARDIOLOGY CONSULTATION REPORT ---
DATE OF CONSULTATION: 12/04/2016 REASON FOR CONSULTATION: Newly diagnosed atrial fibrillation with elevated ventricular response rate. HISTORY OF PRESENT ILLNESS: Mr. Monzon is a morbidly obese 61-year-old white male with a history of type 2 DM, chronic right lower extremity DVT status post IVC filter (on chronic Coumadin), GERD, chronic shortness of breath, chronic leg edema (recently worsened), allergic rhinitis, and osteoarthritis, who presented acutely to [facility] on 12/03/2016, complaining of progressive swelling in his right leg over the past week and he also noticed increased shortness of breath and worsening orthopnea over that same timeframe. The patient thought that he may have had "the flu" couple of weeks ago - and that is when he began to feel differently. He was diagnosed with an acute right lower extremity cellulitis, and he was noted to be in atrial fibrillation with an elevated ventricular response rate at that time. The patient was admitted for further evaluation and treatment of above mentioned problems. Thus far, his cardiac enzymes are negative, ProBNP is within normal limits, and shelter monitor reveals that he has still an atrial fibrillation with a ventricular response rate ranging between 80 and 115 beats per minute. He has received IV Lasix 40 mg and has a negative fluid balance greater than 3 L. He feels as though his breathing has improved and his leg edema has improved. The patient offers no other complaints. He denies any prior cardiac history or prior cardiac events. He denies any exertional chest pain, heaviness, tightness, pressure, or chest discomfort. He denies any exertional neck, jaw, back, or arm pain. His shortness of breath, dyspnea on exertion, and orthopnea seemed to be improving since being hospitalized. He denies any sensation of palpitations or tachy palpitations. No syncope or near syncope. MEDICATIONS: 1. Vitamin D 400 international units daily. 2. Anju 180 mg daily. 3. KCl 10 mEq q.a.m. 4. Protonix 40 mg daily. 5. Lasix 40 mg IV daily. 6. Septra DS 80/160 one tablet b.i.d. 7. Ditropan 5 mg p.o. b.i.d. 8. Cardizem 30 mg p.o. q.i.d. 9. Ceftriaxone 1 g daily. 10. Coumadin 7.5 mg daily. 11. Tylenol 650 mg p.o. q. 4 hours p.r.n. for pain or fever. 12. Ambien 5 mg at bedtime p.r.n. for sleep. 13. Sublingual nitroglycerin 0.4 mg p.r.n. for chest discomfort. ALLERGIES: NKDA. PAST MEDICAL HISTORY: 1. Newly diagnosed PAF. 2. Morbid obesity, status post gastric bypass. 3. History of right lower extremity DVT, on chronic Coumadin. 4. History of IVC filter. 5. History of vitamin B12 deficiency. 6. History of urinary incontinence. 7. History of ureteral stents. 8. Ventral hernia. 9. History of Lyme disease. 10. GERD. 11. Chronic leg edema. 12. Chronic orthopnea. 13. Osteoarthritis. 14. History of angioedema. 15. History of abscess on buttocks. 16. Status post cholecystectomy. 17. History of colonoscopy. 18. History of cryosurgical ablation of a renal mass. 19. History of cystoscopy with insertion of ureteral stent. 20. History of ureteroscopy with lithotripsy. FAMILY HISTORY: History of CAD. SOCIAL HISTORY: The patient is single. He previously used alcohol. He is a former user of smokeless tobacco. He is a life-long nonsmoker. PHYSICAL EXAMINATION: VITAL SIGNS: Temperature 36.9 degrees Celsius, pulse is 85-95 and irregularly irregular, respiratory rate 18 and unlabored, blood pressure is 133/89, and SpO2 is 95% on room air. I&O's -3 L. Body weight 176.4 kg (down 2.4 kg since admission). GENERAL: The patient is in no acute distress. HEENT: Head is atraumatic and normocephalic. EOMs intact. Sclera anicteric. Face is symmetric. No perioral cyanosis. Mucous membranes moist. Dentition in poor repair. NECK: Without thyromegaly, adenopathy or obvious JVD. Jugular venous pressure does not appear to be elevated. CHEST AND LUNGS: Clear to auscultation throughout all lung francis. No wheezes, rales or rhonchi. CARDIOVASCULAR SYSTEM: S1 and S2 are irregularly irregular, distant, without obvious murmur, gallops, or rubs. PMI is nondisplaced. No lifts, heaves, or thrills. ABDOMINAL EXAMINATION: Bowel sounds present. No masses, organomegaly, or tenderness. EXTREMITIES: With intact radial and dorsalis pedis pulses. There is +1 pitting edema to the posterior thigh on the right leg, +1 pitting edema to the proximal tibia on the left side. Pigmentation changes are present over bilateral lower extremities. No obvious open areas. NEUROLOGIC EXAMINATION: The patient is awake, alert and oriented. Pleasant and cooperative. He answers questions appropriately. Speech is clear. Normal movement in all 4 extremities. Hettinger pattern not assessed. LABORATORY DATA: White blood cell count 7.97, hemoglobin 12.3 g/dL, hematocrit 37.0%, and platelet count 240,000. INR is therapeutic at 2.3. Sodium is 139 mmol/L, potassium 3.7 mmol/L, BUN 22 mg/dL, and creatinine of 1.52 mg/dL. Random glucose is 171 mg/dL. Serum magnesium level is 2.0 mg/dL. Total CK is 57 units per liter with a respective CK-MB of 0.7 ng/mL. Troponin I level is less than 0.015 ng/mL. ProBNP is normal at 815 pg/mL. Total protein is 7.5 g/dL with an albumin of 2.8 g/dL and globulin level of 4.7 g/dL. TSH is 3.270 uIU/mL. Free T4 is 1.05 ng/dL. Current EKG shows Atrial Fibrillation with a ventricular rate of approximately 102 beats per minute with a RBBB pattern, poor R-wave progression across the precordium. When compared to 12/03/2016 tracing, ventricular response rate has slowed by 6 beats per minute. Telemetry monitoring reveals atrial fibrillation with variable ventricular response rate. Chest x-ray on admission shows no acute cardiopulmonary findings. Venous duplex Doppler of the right lower extremity is technically compromised, suboptimal penetration, but no obvious DVT identified within either lower extremity. ASSESSMENT: 1. Newly diagnosed PAF with elevated ventricular response rate. 2. Appears to have normal LV systolic function on echocardiogram today. 3. Chronic right bundle branch block. 4. History of right lower extremity deep venous thrombosis, status post IVC filter. 5. Chronic Coumadin anticoagulation. 6. Type 2 diabetes mellitus. 7. Morbid obesity, status post gastric bypass. 8. No angina pectoris or anginal equivalent symptoms. 9. Chronic shortness of breath, slightly worse with atrial fibrillation. 10. Chronic leg edema, worse following the onset of atrial fibrillation. 11. No signs or symptoms of stroke or mini stroke. PLAN: 1. Discussed with Dr. Baldwin, who will also meet with the patient. 2. Continue Diltiazem 30 mg p.o. q.i.d. 3. Add Lopressor 50 mg p.o. b.i.d. in an effort to slow his ventricular response rate. 4. If he remains in atrial fibrillation later today, would recommend starting Flecainide 100 mg b.i.d. in an effort to chemically cardiovert him. 5. Continue Coumadin for a goal INR of 2.0 to 3.0. 6. Continue IV Lasix for the time being. 7. Ongoing treatment for suspected right lower extremity cellulitis. 8. Continue to monitor daily laboratories including PRP and CBC. 9. We will continue to follow along while hospitalized. LOI
--- NOTE | 2016-12-04 11:06 | ECHOCARDIOGRAM REPORT ---
*NOTICE TO RECEIVING [employer]ENCY This information is strictly Confidential and protected under [place] law. [place] law prohibits you from making any further disclosure of this information unless further disclosure is expressly permitted by the written consent of the person to whom it pertains or is authorized by law. A general authorization for the release of medical or other information is not sufficient for this purpose. Hospital accepts no responsibility if the information is made available to any other person, INCLUDING THE PATIENT. Interpretation Summary * Name: FREDDY MCNEIL Study Date: 12/04/2016 06:17 AM BP: 133/89 mmHg * Patient Location: C.2E\S\E209\S\1 HR: 85 * : 1955 (M/d/yyyy) Gender: Male Height: 74 in * Age: 61 yrs Ethnicity: [place] Weight: 418 lb * Ordering Physician: Randell Chow * Referring Physician: Self, Referred * Performed By: Sonya Pantoja RDCS * * Reason For Study: AFIB * BSA: 3.0 m2 * -- Conclusions -- * Left ventricular systolic function is normal. * No regional wall motion abnormalities noted. * Ejection Fraction = 65-70%. * There is borderline concentric left ventricular hypertrophy. * No obvious valvular pathology. Procedure Details * A contrast injection of Definity was performed to improve assessment of LV function. * Contrast was injected into an intravenous site in the left arm. * One vial of Definity ultrasound contrast was diluted in normal saline to a total volume of 10 ml. A total of '2' ml of solution was administered during imaging. * Lot # [id number] of Definity utilized for procedure. * Expiration date DEC 06. * The attending nurse who injected the contrast agent was TAYLER ZHONG. Left Ventricle * The left ventricle is normal in size. * There is borderline concentric left ventricular hypertrophy. * Ejection Fraction = 65-70%. * Left ventricular systolic function is normal. * No regional wall motion abnormalities noted. Right Ventricle * The right ventricle is grossly normal size. * Right ventricular function cannot be assessed due to poor image quality. Atria * The left atrium is mildly dilated. * Right atrium not well visualized. * There is no evidence of atrial septal defect, but resolution does not allow assessment for a patent foramen ovale. Mitral Valve * The mitral valve is grossly normal. * There is no mitral valve stenosis. * Significant mitral regurgitation is absent. Tricuspid Valve * The tricuspid valve is not well visualized, but is grossly normal. * There is no tricuspid stenosis. * Significant tricuspid regurgitation is absent. Aortic Valve * The aortic valve is not well visualized. * The aortic valve opens well. * No hemodynamically significant valvular aortic stenosis. * There is no significant aortic regurgitation. Pulmonic Valve * The pulmonary valve is not well seen, but the Doppler examination is normal without significant regurgitation or stenosis. Great Vessels * The aortic root is normal size. * The pulmonary is not well visualized. Pericardium/Pleural * There is no pericardial effusion. Great Vessels * IVC not well visualized. MMode 2D Measurements and Calculations IVSd 1.4 cm IVSs 2.0 cm LVIDd 4.4 cm LVIDs 2.8 cm LVPWd 1.4 cm LVPWs 1.9 cm IVS/LVPW 0.96 FS 36.2 % EDV(Teich) 87.3 ml ESV(Teich) 29.6 ml EF(Teich) 66.1 % EDV(cubed) 84.7 ml ESV(cubed) 22.0 ml EF(cubed) 74.0 % % IVS thick 46.2 % % LVPW thick 34.1 % LV mass(C)d 238.7 grams LV mass(C)dI 80.3 grams/m\S\2 LV mass(C)s 233.9 grams LV mass(C)sI 78.7 grams/m\S\2 SV(Teich) 57.7 ml SI(Teich) 19.4 ml/m\S\2 SV(cubed) 62.7 ml SI(cubed) 21.1 ml/m\S\2 Ao root diam 4.2 cm Ao root area 14.1 cm\S\2 LA dimension 3.9 cm LA/Ao 0.93 LVAd ap4 40.4 cm\S\2 LVLd ap4 9.2 cm EDV(MOD-sp4) 142.0 ml LVAs ap4 18.8 cm\S\2 LVLs ap4 6.9 cm ESV(MOD-sp4) 43.4 ml EF(MOD-sp4) 69.4 % LVAd ap2 28.3 cm\S\2 LVLd ap2 8.3 cm EDV(MOD-sp2) 78.8 ml LVAs ap2 14.4 cm\S\2 LVLs ap2 6.9 cm ESV(MOD-sp2) 25.8 ml EF(MOD-sp2) 67.3 % SV(MOD-sp4) 98.6 ml SI(MOD-sp4) 33.2 ml/m\S\2 SV(MOD-sp2) 53.0 ml SI(MOD-sp2) 17.8 ml/m\S\2 Doppler Measurements and Calculations MV E max shannon 124.7 cm/sec MV dec time 0.27 sec Ao V2 max 120.1 cm/sec Ao max PG 5.8 mmHg Ao max PG (full) 1.8 mmHg LV V1 max PG 4.0 mmHg LV V1 max 100.2 cm/sec
--- NOTE | 2016-12-04 15:36 | Hospitalist Progress Note ---
Hospitalist Progress Note Date of Service Dec 04, 2016. (Alley Joy, ZEESHANC) Subjective Pt evaluation today including: conversation w/ patient, physical exam, chart review, lab review, review of studies, review of inpatient medication list Patient seen and evaluated. Remains in A Fib with rates between 80-low 100s. Denies SOB or CP. Continues to have B/L LE edema with R > L. Awaiting clinical course with beta blockade and possible need for anti-arrhythmic. Patient has chronic edema of lower extremities with thickened skin and brown discoloration. Reporting RLE erythema is new. Constitutional: No fever, No chills Respiratory: No shortness of breath Cardiovascular: No chest pain Abdomen: No pain, No nausea, No vomiting, No diarrhea, No constipation Musculoskeletal: + swelling (chronic - R>L), No calf pain Male : No dysuria Heme: No abnormal bleeding/bruising Skin: + problem reported (RLE with mildly erythematous area of conti - minimal warmth to touch) (Alley Joy, NIRU-C) Medications Current Inpatient Medications Medications (Trade) Dose Ordered Sig/Rhea Route Start Time Stop Time Status Last Admin Dose Admin Acetaminophen (Tylenol Tab) 650 mg Q4H PRN PO 12/03/16 18:15 01/02/17 18:14 Zolpidem Tartrate (Ambien Tab) 5 mg HSZ PRN PO 12/03/16 18:15 01/02/17 18:14 Nitroglycerin (Nitrostat Tab) 0.4 mg UD PRN SL 12/03/16 18:15 01/02/17 18:14 Cholecalciferol (Vitamin D Tab) 400 inter.unit QAM PO 12/04/16 09:00 01/03/17 08:59 12/04/16 07:47 400 INTER.UNIT Fexofenadine HCl (Anju Tab) 180 mg QAM PO 12/04/16 09:00 01/03/17 08:59 12/04/16 07:47 180 MG Oxybutynin Chloride (Ditropan Tab) 5 mg BID PO 12/03/16 21:00 01/02/17 20:59 12/04/16 07:47 5 MG Potassium Chloride (Klor-Con M10) 10 meq QAM PO 12/04/16 09:00 01/03/17 08:59 12/04/16 07:48 10 MEQ Warfarin Sodium (Coumadin Tab) 7.5 mg DAILY@1600 PO 12/03/16 19:00 01/02/17 18:59 12/03/16 20:54 7.5 MG Pantoprazole Sodium (Protonix Tab) 40 mg QAM PO 12/04/16 09:00 01/03/17 08:59 12/04/16 07:47 40 MG Ceftriaxone Sodium 1 gm/ Dextrose 50 ml @ 100 mls/hr Q24H IV 12/03/16 20:00 12/13/16 19:59 12/03/16 20:33 100 MLS/HR Diltiazem HCl (Cardizem Tab) 30 mg QID PO 12/03/16 21:00 01/02/17 20:59 12/04/16 13:14 30 MG Furosemide 40 mg/ Syringe 4 ml @ 4 mls/min QAM IV 12/04/16 09:00 01/03/17 08:59 Future Hold 12/04/16 07:48 4 MLS/MIN Metoprolol Tartrate (Lopressor Tab) 50 mg BID PO 12/04/16 10:00 01/03/17 09:59 12/04/16 10:01 50 MG Cyanocobalamin (Vitamin B-12 Inj) 1,000 mcg TODAY@0900 ONCE IM 12/05/16 09:00 12/05/16 09:01 Doxycycline Hyclate (Vibramycin Cap) 100 mg BID PO 12/04/16 21:00 12/14/16 20:59 Potassium Chloride (Klor-Con M10) 40 meq NOW ONCE PO 12/04/16 15:15 12/04/16 15:16 UNV (Alley Joy, KIKO) Objective Vital Signs Date Time Temp Pulse Resp B/P (MAP) Pulse Ox O2 Delivery O2 Flow Rate FiO2 12/04/16 15:23 36.6 85 19 112/77 (89) 93 Room Air 12/04/16 12:00 94 Room Air 12/04/16 11:25 36.4 101 19 128/77 (94) 93 Room Air 12/04/16 08:00 95 Room Air 12/04/16 07:30 36.9 85 19 133/89 (104) 91 Room Air 12/04/16 04:14 36.8 100 20 156/96 (116) 90 Room Air 12/04/16 04:00 94 Room Air 12/03/16 23:59 94 Room Air 12/03/16 23:11 36.4 105 18 139/81 (100) 92 Room Air 12/03/16 20:00 94 Room Air 12/03/16 19:36 36.7 91 22 150/84 (106) 94 Room Air 12/03/16 19:22 101 20 141/81 94 Room Air 12/03/16 18:15 95 Room Air 12/03/16 18:11 100 18 148/88 95 Room Air 12/03/16 16:21 98 20 142/75 93 Room Air 12/03/16 16:10 101 (Alley Joy PA-C) Physical Exam General Appearance: WD/WN, no apparent distress, + obese Eyes: sclerae normal ENT: hearing grossly normal Neck: supple, no JVD, trachea midline Respiratory/Chest: lungs clear, normal breath sounds, no respiratory distress, no accessory muscle use Cardiovascular: no gallop, no murmur, + irregularly irregular Abdomen: normal bowel sounds, non tender, soft Extremities: no calf tenderness, + swelling (thick/brown discoloration of b/l legs; edematous with R>L; minimal warmthy and erythema of RLE) Neurologic/Psychiatric: alert, oriented x 3 Skin: warm/dry (Alley Joy PA-C) Laboratory Results Last 24 Hours Test 12/03/16 15:45 12/03/16 15:55 12/04/16 05:37 White Blood Count 7.90 K/uL 7.97 K/uL Red Blood Count 4.37 M/uL 4.23 M/uL Hemoglobin 12.4 g/dL 12.3 g/dL Hematocrit 38.3 % 37.0 % Mean Corpuscular Volume 87.6 fL 87.5 fL Mean Corpuscular Hemoglobin 28.4 pg 29.1 pg Mean Corpuscular Hemoglobin Concent 32.4 g/dl 33.2 g/dl Platelet Count 261 K/uL 240 K/uL Mean Platelet Volume 9.1 fL 9.3 fL Neutrophils (%) (Auto) 71.8 % Lymphocytes (%) (Auto) 17.0 % Monocytes (%) (Auto) 7.5 % Eosinophils (%) (Auto) 1.8 % Basophils (%) (Auto) 0.3 % Neutrophils # (Auto) 5.68 K/uL Lymphocytes # (Auto) 1.34 K/uL Monocytes # (Auto) 0.59 K/uL Eosinophils # (Auto) 0.14 K/uL Basophils # (Auto) 0.02 K/uL RDW Standard Deviation 48.2 fL 48.0 fL RDW Coefficient of Variation 14.9 % 14.8 % Immature Granulocyte % (Auto) 1.6 % Immature Granulocyte # (Auto) 0.13 K/uL Prothrombin Time 26.8 SECONDS 26.0 SECONDS Prothromb Time International Ratio 2.4 2.3 Activated Partial Thromboplast Time 42.7 SECONDS Partial Thromboplastin Ratio 1.6 Sodium Level 141 mmol/L 139 mmol/L Potassium Level 4.2 mmol/L 3.7 mmol/L Chloride Level 106 mmol/L 104 mmol/L Carbon Dioxide Level 27 mmol/L 29 mmol/L Anion Gap 8.0 mmol/L 6.0 mmol/L Blood Urea Nitrogen 27 mg/dl 22 mg/dl Creatinine 1.70 mg/dl 1.52 mg/dl Est Creatinine Clear Calc Drug Dose 82.9 ml/min 88.7 ml/min Estimated GFR () 50.0 57.3 Estimated GFR (Non- 43.2 49.4 BUN/Creatinine Ratio 15.6 14.7 Random Glucose 157 mg/dl 171 mg/dl Calcium Level 8.5 mg/dl 8.4 mg/dl Magnesium Level 2.0 mg/dl Total Bilirubin 0.3 mg/dl Aspartate Amino Transf (AST/SGOT) 23 U/L Alanine Aminotransferase (ALT/SGPT) 36 U/L Alkaline Phosphatase 76 U/L Total Creatine Kinase 57 U/L Creatine Kinase MB 0.7 ng/ml Creatine Kinase MB Ratio 1.2 Troponin I < 0.015 ng/ml Pro-B-Type Natriuretic Peptide 815 pg/ml Total Protein 7.5 gm/dl Albumin 2.8 gm/dl Globulin 4.7 gm/dl Albumin/Globulin Ratio 0.6 Thyroid Stimulating Hormone (TSH) 3.270 uIu/ml Free Thyroxine 1.05 ng/dl Chemistry Specimen Hemolysis Bedside Lactic Acid Venous 1.72 mmol/L (Alley Joy, PA-C) Assessment and Plan New Onset Atrial Fibrillation: Rate mostly controlled - Possibly induced by cellulitis? - TSH WNL and electrolytes acceptable - Diltiazem 30 mg QID and Metoprolol tartrate 50 mg BID - Coumadin 7.5 mg daily and monitor INR - Cardiology following - implement beta blockade and possible Flecainide or cardioversion RLE Cellulitis and Edema: - On Lasix and increased dosing due to swelling - Will implement daily Lasix based on examination and Cr function - Ceftriaxone 1 g IV daily and Doxycycline 100 mg BID KINJAL: - Cr elevated and trending down with diuresis - monitor BMP - Avoid nephrotoxic agents GERD: - Protonix 40 mg daily Bladder Spasm: - Oxybutynin 5 mg BID DVT Prophylaxis: Coumadin Disposition: - Possible D/C 1-2 days Continued [facility] stay due to: multiple IV medications needed Discharge planning: home (Alley Joy, KIKO) Reviewed: Pt Seen/Exam by Me (Qian Queen MD) History Physician Econometrics Professor Supervision Note: I interviewed and examined the patient. Discussed with NIRU Joy and agree with findings and plan as documented in the note. Any exceptions or clarifications are listed here: Pt feeling fine, thinks edema in RLE has decreased since admission with IV lasix. No CP or palps, no SOB. Apprentice Carpenter improved from yesterday. GPC in 1/2 bottles of BCx set just now. Remains in A-fib but rate controlled. Vitals and tele reviewed Morbidly obese NAD, AAOx3 Irreg irreg, no mgr CTAB no wcr Abd +BS, soft, NT ND morbidly obese Ext 3+ pitting edema from feet to knees bilat, 2+ DP pusles bilat Skin: right medial distal leg with erythematous patch non blanching, not hot to the touch, some petechiae Pt is a 61 yo male with morbid obesity, s/p gastric bypass, chronic peripheral edema likely secondary to morbid obesity/dependent edema and venous stasis, DMII , DVT on chronic AC, here with worsening RLE edema, dyspnea, found to be in new onset atrial fibrillation with rapid response. Rates controlled with adding on metoprolol to diltiazem -adding flecainide this evening and if not converting, will do DCCV (INR therapeutic continuously for years as per our records) -replace K+ to keep at 4.0, follow Mg and keep at 2.0 -continue tele monitoring -can give more IV lasix if peer counselor ok in AM, then convert back to home po lasix -ECHO reviewed and preserved EF, no diastolic dysfunction -very minimal cellulitis but no evidence of sepsis, BCx with 1/4 bottles +GPC, likely contaminant but continue Rocephin, doxy and follow C&S -continue coumadin Documented By: Qian Queen (Qian Queen MD)
[2016-12-04] MEDS ORDERED: POTASSIUM CHLORIDE 10 MEQ TABCR PO ONE (15:45)
[2016-12-04] MEDS ORDERED: FLECAINIDE ACETATE 100 MG TAB PO ONE (15:46)
[2016-12-04] MEDS: WARFARIN SOD 7.5 MG TAB PO SCH (16:59)
[2016-12-04] MEDS: CEFTRIAXONE SOD INJ 1 GM in DEXTROSE 5% ADD-VANTAGE 50ML 50 ML IV SCH (20:03)
[2016-12-04] MEDS: FLECAINIDE ACETATE 100 MG TAB PO SCH (20:08)
[2016-12-04] MEDS: DOXYCYCLINE HYCLATE 100 MG CAP PO SCH (20:08)
[2016-12-04] MEDS ORDERED: hydrOXYzine HCL 10 MG TAB PO PRN (22:45)
[2016-12-05] VITALS (7 sets, daily range): BP systolic 115–130; BP diastolic 61–82; PULSE 66–82; TEMP 36.4–37; O2SAT 91–93; Ht 188 cm; Wt 178.3 kg
[2016-12-05 06:44] LABS: INR 2.5 (0.9-1.1); PROTHROMBIN TIME (PATIENT) 28.3 SECONDS (9.0-12.0)
[2016-12-05 07:03] LABS: ESTIMATED AVERAGE GLUCOSE 171 mg/dl; HA1C FLAG Normal (Normal)
[2016-12-05 07:09] LABS: BUN/CREATININE RATIO 15.1 (10-20); CALCIUM 8.6 mg/dl (8.5-10.1); CREATININE 1.72 mg/dl (0.60-1.40); POTASSIUM 4.1 mmol/L (3.5-5.1)
[2016-12-05] MEDS: DOXYCYCLINE HYCLATE 100 MG CAP PO SCH ×2 (07:19→20:03)
[2016-12-05] MEDS: FLECAINIDE ACETATE 100 MG TAB PO SCH ×2 (07:19→20:04)
[2016-12-05] MEDS: METOPROLOL TARTRATE 50 MG TAB PO SCH ×2 (07:20→20:04)
[2016-12-05] MEDS: POTASSIUM CHLORIDE 10 MEQ TABCR PO SCH (07:20)
[2016-12-05] MEDS: PANTOprazole SOD 40 MG TAB PO SCH (07:20)
[2016-12-05] MEDS: FEXOFENADINE HCL 180 MG TAB PO SCH (07:20)
[2016-12-05] MEDS: CHOLECALCIFEROL 400 INTER.UNIT TAB PO SCH (07:20)
[2016-12-05] MEDS: DILTIAZEM HCL 30 MG TAB PO SCH ×4 (07:20→20:02)
[2016-12-05] MEDS: OXYBUTYNIN CHLORIDE 5 MG TAB PO SCH ×2 (07:21→20:06)
[2016-12-05] MEDS ORDERED: CYANOCOBALAMIN 1000 MCG/ML VIAL IM ONE (09:00)
--- NOTE | 2016-12-05 09:11 | Cardiology Follow-Up ---
Subjective Date of Service: Dec 05, 2016. Pt evaluation today including: conversation w/ patient, physical exam, chart review, lab review, review of studies History of Present Illness Mr. 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 He was re-evaluated by me this morning. The patient states that he had noticed increased swelling to his right calf over the past several weeks, where he previously had a DVT. He did attempt to double his dosage of Furosemide, which did cause him increased frequency of urination, but as the swelling persisted he went to the ED for further evaluation yesterday. Upon arrival to the ED, the patient was found to be in atrial fibrillation at 108 BPM on EKG. He states that he has never been diagnosed with atrial fibrillation in the past. The patient does note that over the past few weeks, he has had to sleep in a more upright position as he has felt too short of breath to lay flat, but he denies experiencing any chest pain, palpitations, lightheadedness, dizziness, PND, presyncope or syncopal episodes. While in the ED, the patient did have a RLE venous doppler with no evidence of DVT and a chest x-ray with no acute pulmonary findings. Patient was reevaluated by me this morning. While in the hospital yesterday, the patient had not converted back to normal sinus rhythm after placed on Metoprolol tartrate 50 mg BID, so he was started on Flecainide 100 mg PO BID. He has since had two doses of the medication and his rate has now been more controlled between 70-80 BPM. Upon reevaluation this morning, the patient states that he has felt well. He denies experiencing any chest pain, palpitations, lightheadedness, dizziness, PND, presyncope or syncopal episodes. He states that the swelling to his leg has appeared to have improved since yesterday as well. No acute complaints at this time. Social History Smoking Status: Never Smoker History of Alcohol Use: Yes (2 A DAY) Review of Systems All other systems were reviewed and were negative unless otherwise stated in the HPI. Medications Medications (Trade) Dose Ordered Sig/Rhea Route Start Time Stop Time Status Last Admin Dose Admin Cholecalciferol (Vitamin D Tab) 400 inter.unit QAM PO 12/04/16 09:00 01/03/17 08:59 12/05/16 07:20 400 INTER.UNIT Fexofenadine HCl (Anju Tab) 180 mg QAM PO 12/04/16 09:00 01/03/17 08:59 12/05/16 07:20 180 MG Potassium Chloride (Klor-Con M10) 10 meq QAM PO 12/04/16 09:00 01/03/17 08:59 12/05/16 07:20 10 MEQ Pantoprazole Sodium (Protonix Tab) 40 mg QAM PO 12/04/16 09:00 01/03/17 08:59 12/05/16 07:20 40 MG Furosemide 40 mg/ Syringe 4 ml @ 4 mls/min QAM IV 12/04/16 09:00 12/05/16 08:25 DC 12/04/16 07:48 4 MLS/MIN Metoprolol Tartrate (Lopressor Tab) 50 mg BID PO 12/04/16 10:00 01/03/17 09:59 12/05/16 07:20 50 MG Doxycycline Hyclate (Vibramycin Cap) 100 mg BID PO 12/04/16 21:00 12/14/16 20:59 12/05/16 07:19 100 MG Potassium Chloride (Klor-Con M10) 40 meq NOW ONCE PO 12/04/16 15:45 12/04/16 15:46 DC 12/04/16 16:58 40 MEQ Flecainide Acetate (Tambocor Tab) 100 mg Q12 PO 12/04/16 21:00 01/03/17 20:59 12/05/16 07:19 100 MG Flecainide Acetate (Tambocor Tab) 100 mg 1546 ONCE PO 12/04/16 15:46 12/04/16 15:57 DC 12/04/16 16:58 100 MG Hydroxyzine HCl (Vistaril Tab) 10 mg HS PRN PO 12/04/16 22:45 01/03/17 22:44 12/04/16 22:44 10 MG Objective Vital Signs Past 12 Hours Date Time Temp Pulse Resp B/P (MAP) Pulse Ox O2 Delivery O2 Flow Rate FiO2 12/05/16 08:06 36.4 70 22 130/80 (97) 91 Room Air 12/05/16 08:00 Room Air 12/05/16 04:11 36.8 82 22 115/82 (93) 91 Room Air 12/05/16 04:00 Room Air 12/05/16 00:01 Room Air 12/04/16 23:55 36.5 127 20 102/65 (77) 90 Room Air Last Recorded Weight-Kilograms: 175.100 Physical Exam General: Sitting up on the edge of the bed, in no acute distress. HEENT: Normocephalic, atraumatic. Sclera non-icteric. EOMI, PERRLA. Mucous membranes moist. Neck: Trachea midline. JVP at the levels of the clavicles without distension. No carotid bruits. Lungs: Clear to auscultation, bilaterally. No wheezing, rales or rhonchi. Heart: Irregularly irregular rate and rhythm. No murmurs, gallops or rubs. Abdomen: Morbidly obese. Non-tender to palpation. Unable to assess for masses secondary to body habitus. Extremities. Multiple well healing scabs to the bilateral lower extremities. No signs of abscess or active infection. 2+ pitting edema, bilaterally. Neuro: Awake, alert and oriented x 3. Answers all questions appropriately. Data Laboratory Results: Last 24 Hours Test 12/05/16 06:09 Prothrombin Time 28.3 SECONDS Prothromb Time International Ratio 2.5 Sodium Level 139 mmol/L Potassium Level 4.1 mmol/L Chloride Level 104 mmol/L Carbon Dioxide Level 30 mmol/L Anion Gap 5.0 mmol/L Blood Urea Nitrogen 26 mg/dl Creatinine 1.72 mg/dl Est Creatinine Clear Calc Drug Dose 78.1 ml/min Estimated GFR () 49.3 Estimated GFR (Non- 42.6 BUN/Creatinine Ratio 15.1 Random Glucose 159 mg/dl Estimated Average Glucose 171 mg/dl Hemoglobin A1c 7.6 % Calcium Level 8.6 mg/dl Imaging: CHEST ONE VIEW PORTABLE CLINICAL HISTORY: Respiratory distress. Dyspnea. COMPARISON STUDY: Chest radiograph June 03, 2015. FINDINGS: Lung volumes are mildly diminished. No pneumothorax or pleural effusion is present. Opacity along the left heart border likely reflects epicardial fat pad. There is no consolidation to suggest pneumonia and there is no evidence of pulmonary edema. Cardiomediastinal silhouette is stable. Old left-sided rib deformities are present. IMPRESSION: No acute cardiopulmonary findings. Electronically signed by: Darinel Singh M.D. 12/03/2016 3:33 PM Dictated Date/Time: 12/03/2016 3:32 PM BILATERAL LOWER EXTREMITY VENOUS DOPPLER CLINICAL HISTORY: Lower extremity swelling. COMPARISON STUDY: Right lower extremity venous Doppler February 22, 2012. TECHNIQUE: Sonography of the deep venous system of the bilateral lower extremities was performed. Compression and augmentation were evaluated. FINDINGS: This exam is compromised by suboptimal penetration. No deep venous thrombus was identified although the right popliteal and bilateral calf veins were not well visualized on this exam. IMPRESSION: Technically compromised exam due to suboptimal penetration but no deep venous thrombus identified within either lower extremity. Electronically signed by: Darinel Singh M.D. 12/03/2016 5:02 PM Dictated Date/Time: 12/03/2016 5:00 PM EK12/05/16 0726: Atrial fibrillation at 92 BPM with RBBB Assessment and Plan Atrial fibrillation with improved ventricular response rate 1. Continue Metoprolol tartrate 50 mg PO BID 2. Continue Flecainide 100 mg PO BID 3. If patient still does not convert to sinus rhythm after 5 doses of Flecainide , will consider electrical cardioversion 4. If electrical cardioversion is agreed upon, NPO at least 4-6 hour prior to procedure. 5. Continue chronic Coumadin for a goal INR of 2.0 to 3.0. Hannah CHE
[2016-12-05] MEDS: FUROSEMIDE 20 MG TAB PO SCH (10:00)
--- NOTE | 2016-12-05 12:38 | Hospitalist Progress Note ---
Hospitalist Progress Note Date of Service Dec 05, 2016. (Luz Maria Hernández ., KIKO) Subjective Pt evaluation today including: conversation w/ patient, physical exam, lab review, review of studies, review of inpatient medication list Voiding: no voiding problems Patient states he is feeling well. Sitting in bedside chair. Eating and drinking OK. States RLE redness and swelling continues to improve. Patient denies any fever, chills, sweats, lightheadedness, dizziness, vision changes, CP, palpitations, SOB, wheezing, cough, abdominal pain, nausea, vomiting, diarrhea, urinary symptoms, melena, numbness/tingling, weakness, muscle/joint pain, anxiety/depression, active bleeding, or new skin discoloration/changes. (Luz Maria Hernándze ., ZEESHANC) Medications Current Inpatient Medications Medications (Trade) Dose Ordered Sig/Rhea Route Start Time Stop Time Status Last Admin Dose Admin Acetaminophen (Tylenol Tab) 650 mg Q4H PRN PO 12/03/16 18:15 01/02/17 18:14 Zolpidem Tartrate (Ambien Tab) 5 mg HSZ PRN PO 12/03/16 18:15 01/02/17 18:14 Nitroglycerin (Nitrostat Tab) 0.4 mg UD PRN SL 12/03/16 18:15 01/02/17 18:14 Cholecalciferol (Vitamin D Tab) 400 inter.unit QAM PO 12/04/16 09:00 01/03/17 08:59 12/05/16 07:20 400 INTER.UNIT Fexofenadine HCl (Anju Tab) 180 mg QAM PO 12/04/16 09:00 01/03/17 08:59 12/05/16 07:20 180 MG Oxybutynin Chloride (Ditropan Tab) 5 mg BID PO 12/03/16 21:00 01/02/17 20:59 12/05/16 07:21 5 MG Potassium Chloride (Klor-Con M10) 10 meq QAM PO 12/04/16 09:00 01/03/17 08:59 12/05/16 07:20 10 MEQ Warfarin Sodium (Coumadin Tab) 7.5 mg DAILY@1600 PO 12/03/16 19:00 01/02/17 18:59 12/04/16 16:59 7.5 MG Pantoprazole Sodium (Protonix Tab) 40 mg QAM PO 12/04/16 09:00 01/03/17 08:59 12/05/16 07:20 40 MG Ceftriaxone Sodium 1 gm/ Dextrose 50 ml @ 100 mls/hr Q24H IV 12/03/16 20:00 12/13/16 19:59 12/04/16 20:03 100 MLS/HR Diltiazem HCl (Cardizem Tab) 30 mg QID PO 12/03/16 21:00 01/02/17 20:59 12/05/16 07:20 30 MG Metoprolol Tartrate (Lopressor Tab) 50 mg BID PO 12/04/16 10:00 01/03/17 09:59 12/05/16 07:20 50 MG Doxycycline Hyclate (Vibramycin Cap) 100 mg BID PO 12/04/16 21:00 12/14/16 20:59 12/05/16 07:19 100 MG Flecainide Acetate (Tambocor Tab) 100 mg Q12 PO 12/04/16 21:00 01/03/17 20:59 12/05/16 07:19 100 MG Hydroxyzine HCl (Vistaril Tab) 10 mg HS PRN PO 12/04/16 22:45 01/03/17 22:44 12/04/16 22:44 10 MG Furosemide (Lasix Tab) 20 mg QAM PO 12/05/16 09:00 01/04/17 08:59 12/05/16 10:00 20 MG (Luz Maria Hernández, NIRU-C) Objective Vital Signs Date Time Temp Pulse Resp B/P (MAP) Pulse Ox O2 Delivery O2 Flow Rate FiO2 12/05/16 09:55 91 Room Air 12/05/16 08:06 36.4 70 22 130/80 (97) 91 Room Air 12/05/16 08:00 Room Air 12/05/16 04:11 36.8 82 22 115/82 (93) 91 Room Air 12/05/16 04:00 Room Air 12/05/16 00:01 Room Air 12/04/16 23:55 36.5 127 20 102/65 (77) 90 Room Air 12/04/16 20:00 Room Air 12/04/16 19:56 87 12/04/16 19:16 36.5 144 22 127/78 (94) 92 Room Air 12/04/16 16:00 Room Air 12/04/16 15:23 36.6 85 19 112/77 (89) 93 Room Air (Luz Maria Hernández, NIRU-C) Physical Exam General Appearance: no apparent distress, + obese (morbid ) Eyes: normal inspection, PERRL ENT: hearing grossly normal Neck: supple Respiratory/Chest: lungs clear, no respiratory distress, no accessory muscle use Cardiovascular: + irregularly irregular (rate controlled ) Abdomen: normal bowel sounds, non tender, soft Extremities: no calf tenderness, + swelling (+2 pitting edema bilaterally ), + pertinent finding (chronic stasis changes to noted bilateral lower extremities; noted increased redness to RLE lateral/distal conti/ankle region ) Neurologic/Psychiatric: alert, normal mood/affect, oriented x 3 Skin: normal color, warm/dry, no rash (Luz Maria Hernández ., NIRU-C) Laboratory Results Last 24 Hours Test 12/05/16 06:09 12/05/16 11:02 Prothrombin Time 28.3 SECONDS Prothromb Time International Ratio 2.5 Sodium Level 139 mmol/L Potassium Level 4.1 mmol/L Chloride Level 104 mmol/L Carbon Dioxide Level 30 mmol/L Anion Gap 5.0 mmol/L Blood Urea Nitrogen 26 mg/dl Creatinine 1.72 mg/dl Est Creatinine Clear Calc Drug Dose 78.1 ml/min Estimated GFR () 49.3 Estimated GFR (Non- 42.6 BUN/Creatinine Ratio 15.1 Random Glucose 159 mg/dl Estimated Average Glucose 171 mg/dl Hemoglobin A1c 7.6 % Calcium Level 8.6 mg/dl Bedside Glucose 216 mg/dl (Luz Maria Hernández ., PA-C) Assessment and Plan The patient is a 61-year-old male who presents to the emergency department with worsening right leg swelling and mild shortness of breath that began since the previous week. He has a history of RLE DVT for which she is on Coumadin chronically. He did try doubling his Lasix dose over the past few days, with no significant improvement in swelling. He reports that he is not able to lay back ever his breathing due to his obesity, but does feels that is worse since that time. New onset a.fib- rate controlled: - Admitted to [facility] for cardiac monitoring- a.fib w/ rates controlled - Cardiac enzymes- negative x1 - ECHO- reserved EF and no diastolic dysfunction - Diltiazem 30 mg QID, Metoprolol tartrate 50 mg BID, Flecainide 100 mg BID - Coumadin 7.5 mg daily- monitor INR and adjust dosage PRN for goal INR 2.0-3.0 - Cardiology following, appreciate recommendations -- Flecainide x5 doses, if doesn't convert will consider cardioversion- needs to be NPO 4-6 hours prior to procedure RLE cellulitis and edema- IMPROVING: - Treated w/ IV Lasix- convert to Lasix 20 mg PO - Continue KCL supplement - Ceftriaxone 1 g IV daily and Doxycycline 100 mg BID- started on 12/03 - 02/20 +Coag negative staph BCx- pending final KINJAL on CKD stage III-IV: - Follow PRP - Avoid nephrotoxic agents and renally dose medications Elevated HgbA1C 7.6%: - BSG ACHS and sliding insulin scale - Diabetic counselling Bladder Spasm: Oxybutynin 5 mg BID GERD: Protonix 40 mg daily DVT Prophylaxis: Coumadin Disposition: Discharge to home once medically stable (Luz Maria Hernández, KIKO) Reviewed: Pt Seen/Exam by Me (Qian Queen MD) History Physician Transit Driver Supervision Note: I interviewed and examined the patient. Discussed with NIRU Hernández and agree with findings and plan as documented in the note. Any exceptions or clarifications are listed here: Pt feeling well. No CP or palps, no SOB. Remains in A-fib after 3 doses flecainide but rate controlled. Reports he is willing to take an oral med for his DMII. When asked about following up with his PCP for his DM, he reports, "I don't have time to go to the doctor all the time...I have a job." Vitals and tele reviewed Morbidly obese NAD, AAOx3 Irreg irreg, no mgr CTAB no wcr Abd +BS, soft, NT ND morbidly obese Ext 2+ pitting edema from feet to knees bilat, 2+ DP pusles bilat Skin: right medial distal leg with much improved erythematous patch non blanching, not hot to the touch, some petechiae, smaller circumference and less erythematous than yesterday Pt is a 61 yo male with morbid obesity, s/p gastric bypass, chronic peripheral edema likely secondary to morbid obesity/dependent edema and venous stasis, DMII , DVT on chronic AC, here with worsening RLE edema, dyspnea, found to be in new onset atrial fibrillation with rapid response. Rates controlled with adding on metoprolol to diltiazem -continue flecainide and if not converting after 5 doses (tomorrow AM), will do DCCV (INR therapeutic continuously for years as per our records) -made NPO after breakfast in AM in case of DCCV in afternoon -replace K+ to keep at 4.0, follow Mg and keep at 2.0 -continue tele monitoring -switched to po lasix today, food and beverage intern increased slightly -ECHO reviewed and preserved EF, no diastolic dysfunction -improved cellulitis, never had evidence of sepsis, BCx with 1/4 bottles Coag neg Staph, likely contaminant--> dc Rocephin after tonight's dose and switch to po Augmentin in the AM, continue doxy, both for course of 10 days -continue coumadin -For his DMII--> A1C oconsistently 7.6%--> CDE saw him today and did counseing. he is not willing to check glucose at home which makes insulin unlikely for treatment. Catering And Events Manager prevents metformin use--> would consider Januvia or Tradjenta if insurance covers, vs GLP-1 like Byetta or Victoza which would be excellent for weight loss--> advised to f/u with PCP as sometimes these require prior auths through insurance Documented By: Qian Queen (Qian Queen MD)
[2016-12-05] MEDS ORDERED: GLUCOSE 10 TABS/TUBE PO PRN (13:00)
[2016-12-05] MEDS ORDERED: DEXTROSE 50% 50 ML SYR IV PRN (13:00)
[2016-12-05] MEDS ORDERED: GLUCOSE 40% GEL 15 GM TUBE PO PRN (13:00)
[2016-12-05] MEDS ORDERED: GLUCAGON FOR INJ 1 MG VIAL SQ PRN (13:00)
[2016-12-05] MEDS: WARFARIN SOD 7.5 MG TAB PO SCH (16:21)
[2016-12-05] MEDS: INSULIN ASPART 100 UNITS/ML 3 ML PEN SC SCH ×2 (17:32→21:00)
[2016-12-05] MEDS: CEFTRIAXONE SOD INJ 1 GM in DEXTROSE 5% ADD-VANTAGE 50ML 50 ML IV SCH (20:02)
[2016-12-06 03:45] VITALS: BP 131/66; PULSE 79; TEMP 36.9; O2SAT 90
[2016-12-06 06:33] LABS: BUN/CREATININE RATIO 17.6 (10-20); CALCIUM 8.2 mg/dl (8.5-10.1); CREATININE 1.82 mg/dl (0.60-1.40); MAGNESIUM 2.3 mg/dl (1.8-2.4); POTASSIUM 4.3 mmol/L (3.5-5.1)
[2016-12-06 06:39] LABS: INR 2.6 (0.9-1.1); PROTHROMBIN TIME (PATIENT) 29.2 SECONDS (9.0-12.0)
[2016-12-06] MEDS ORDERED: AMOXICILLIN/CLAVULANATE TAB 875 MG TAB PO SCH (07:30)
[2016-12-06 08:14] VITALS: BP 122/67; PULSE 82; TEMP 36.5; O2SAT 90
[2016-12-06] MEDS: DILTIAZEM HCL 30 MG TAB PO SCH (09:19)
[2016-12-06] MEDS: OXYBUTYNIN CHLORIDE 5 MG TAB PO SCH (09:19)
[2016-12-06] MEDS: DOXYCYCLINE HYCLATE 100 MG CAP PO SCH (09:19)
[2016-12-06] MEDS: PANTOprazole SOD 40 MG TAB PO SCH (09:19)
[2016-12-06] MEDS: FLECAINIDE ACETATE 100 MG TAB PO SCH (09:20)
[2016-12-06] MEDS: METOPROLOL TARTRATE 50 MG TAB PO SCH (09:20)
[2016-12-06] MEDS: CHOLECALCIFEROL 400 INTER.UNIT TAB PO SCH (09:20)
[2016-12-06] MEDS: POTASSIUM CHLORIDE 10 MEQ TABCR PO SCH (09:20)
--- NOTE | 2016-12-06 09:20 | Cardiology Follow-Up ---
Subjective Date of Service: Dec 06, 2016. History of Present Illness Mr. 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 He was re-evaluated by me this morning. The patient states that he had noticed increased swelling to his right calf over the past several weeks, where he previously had a DVT. He did attempt to double his dosage of Furosemide, which did cause him increased frequency of urination, but as the swelling persisted he went to the ED for further evaluation yesterday. Upon arrival to the ED, the patient was found to be in atrial fibrillation at 108 BPM on EKG. He states that he has never been diagnosed with atrial fibrillation in the past. The patient does note that over the past few weeks, he has had to sleep in a more upright position as he has felt too short of breath to lay flat, but he denies experiencing any chest pain, palpitations, lightheadedness, dizziness, PND, presyncope or syncopal episodes. While in the ED, the patient did have a RLE venous doppler with no evidence of DVT and a chest x-ray with no acute pulmonary findings. Patient was reevaluated by me this morning. He has continued to take Metoprolol tartrate 50 mg PO BID as well as Flecainide 100 mg PO BID, which he was started on while in the hospital 2 days prior. Patient's ventricular rate has now been more controlled around 60-80 BPM, however he has not yet converted into sinus rhythm. He states that he feels improved as he no longer feels his heart racing , and he does not become short of breath when getting up to use the restroom as he had when he was first admitted to the hospital. He also states that the swelling to his RLE seems to have improved even more since yesterday. Patient denies experiencing any chest pain, palpitations, lightheadedness, dizziness, PND, orthopnea, presyncope or syncopal episodes. No acute complaints at this time. Social History Smoking Status: Never Smoker History of Alcohol Use: Yes (2 A DAY) Review of Systems All other systems were reviewed and were negative unless otherwise stated in the HPI. Objective Vital Signs Past 12 Hours Date Time Temp Pulse Resp B/P (MAP) Pulse Ox O2 Delivery O2 Flow Rate FiO2 12/06/16 08:14 36.5 82 20 122/67 (85) 90 Room Air 12/06/16 04:00 Room Air 12/06/16 03:45 36.9 79 20 131/66 (87) 90 Room Air 12/06/16 00:00 Room Air 12/05/16 23:36 36.5 67 22 122/61 (81) 92 Room Air Last Recorded Weight-Kilograms: 178.300 Physical Exam General: Sitting up in chair, eating breakfast, in no acute distress. HEENT: Normocephalic, atraumatic. Sclera non-icteric. EOMI, PERRLA. Mucous membranes moist. Neck: Trachea midline. JVP at the levels of the clavicle without distension. No carotid bruits. Lungs: Clear to auscultation, bilaterally. No wheezing, rales or rhonchi. Heart: Irregularly irregular rate and rhythm. No murmurs, gallops or rubs. Abdomen: Morbidly obese. Non-tender to palpation. Unable to assess for masses secondary to body habitus. Extremities. Multiple well healing scabs to the bilateral lower extremities. No signs of abscess or active infection. 1+ pitting edema, bilaterally. Neuro: Awake, alert and oriented x 3. Answers all questions appropriately. EKG pending. Data Laboratory Results: Last 24 Hours Test 12/05/16 11:02 12/05/16 16:28 12/05/16 20:02 12/06/16 05:31 Bedside Glucose 216 mg/dl 163 mg/dl 119 mg/dl Prothrombin Time 29.2 SECONDS Prothromb Time International Ratio 2.6 Sodium Level 140 mmol/L Potassium Level 4.3 mmol/L Chloride Level 105 mmol/L Carbon Dioxide Level 27 mmol/L Anion Gap 8.0 mmol/L Blood Urea Nitrogen 32 mg/dl Creatinine 1.82 mg/dl Est Creatinine Clear Calc Drug Dose 74.6 ml/min Estimated GFR () 46.1 Estimated GFR (Non- 39.8 BUN/Creatinine Ratio 17.6 Random Glucose 148 mg/dl Calcium Level 8.2 mg/dl Magnesium Level 2.3 mg/dl Test 12/06/16 06:47 Bedside Glucose 172 mg/dl Imaging: CHEST ONE VIEW PORTABLE CLINICAL HISTORY: Respiratory distress. Dyspnea. COMPARISON STUDY: Chest radiograph June 03, 2015. FINDINGS: Lung volumes are mildly diminished. No pneumothorax or pleural effusion is present. Opacity along the left heart border likely reflects epicardial fat pad. There is no consolidation to suggest pneumonia and there is no evidence of pulmonary edema. Cardiomediastinal silhouette is stable. Old left-sided rib deformities are present. IMPRESSION: No acute cardiopulmonary findings. Electronically signed by: Darinel Singh M.D. 12/03/2016 3:33 PM Dictated Date/Time: 12/03/2016 3:32 PM BILATERAL LOWER EXTREMITY VENOUS DOPPLER CLINICAL HISTORY: Lower extremity swelling. COMPARISON STUDY: Right lower extremity venous Doppler February 22, 2012. TECHNIQUE: Sonography of the deep venous system of the bilateral lower extremities was performed. Compression and augmentation were evaluated. FINDINGS: This exam is compromised by suboptimal penetration. No deep venous thrombus was identified although the right popliteal and bilateral calf veins were not well visualized on this exam. IMPRESSION: Technically compromised exam due to suboptimal penetration but no deep venous thrombus identified within either lower extremity. Electronically signed by: Darinel Singh M.D. 12/03/2016 5:02 PM Dictated Date/Time: 12/03/2016 5:00 PM EK12/05/16 0726: Atrial fibrillation at 92 BPM with RBBB Assessment and Plan Atrial fibrillation with improved ventricular response rate 1. Continue Metoprolol Tartrate 50 mg PO BID 2. Continue Flecainide 100 mg PO BID 3. Patient will continue to be followed as an outpatient in 1-2 weeks. If he is still in atrial fibrillation at his next appointment, will strongly consider electrical cardioversion at that time. 4. Continue chronic Coumadin for a goal INR of 2.0 to 3.0. 5. As patient is asymptomatic and his V-rate controlled -- He is stable from a cardiac standpoint for discharge to home today. Follow up with ANTONY INFANTE PA-C ON 12/19/2016 AT 2:30 PM. Leg edema: 1. Improving with diuretics. 2. Continue Lasix 20 mg daily on discharge. 3. Continue KCl 10 mEq daily on discharge. Hannah CHE
[2016-12-06] MEDS: FEXOFENADINE HCL 180 MG TAB PO SCH (09:21)
[2016-12-06] MEDS: FUROSEMIDE 20 MG TAB PO SCH (09:21)
[2016-12-06] MEDS: INSULIN ASPART 100 UNITS/ML 3 ML PEN SC SCH ×2 (09:24→13:55)
[2016-12-06] MEDS ORDERED: DILT120C9 PO (09:31)
[2016-12-06] MEDS ORDERED: DXY100 PO (09:31)
[2016-12-06] MEDS ORDERED: TMB100 PO (09:31)
[2016-12-06] MEDS ORDERED: AMOX1TAB43 PO (09:31)
[2016-12-06] MEDS ORDERED: METO50TA16 PO (09:31)
--- NOTE | 2016-12-06 09:49 | Discharge Instructions ---
Discharge Instructions Date of Service Dec 06, 2016. Admission Reason for Admission: Fluid Overload; New Onset Atrial Fibrillation Discharge Discharge Diagnosis / Problem: New onset atrial fibrillation; cellulitis; edema ; T2DM Discharge Goals Goal(s): Decrease discomfort, Improve function, Improve disease control, Improve nutritional status, Learn about illness, Diagnostic testing, Therapeutic intervention, Prevent Disease Progression Activity Recommendations Activity Limitations: resume your previous activity . Instructions / Follow-Up Instructions / Follow-Up Right lower extremity cellulitis (skin infection): Augmentin 1 tablet by mouth twice per day until prescription is complete- begin this medication TONIGHT (12/06) Doxycycline 1 tablet by mouth twice per day until prescription is complete- begin this medication TONIGHT (12/06) IT IS IMPORTANT TO COMPLETE ENTIRE COURSE OF ANTIBIOTICS REGARDLESS OF IMPROVEMENT IN SYMPTOMS! Atrial fibrillation: Metoprolol 1 tablet by mouth twice per day- begin this medication TONIGHT () Flecainide 1 tablet by mouth twice per day- begin this medication TONIGHT () Diltiazem 1 table by mouth once daily- begin this medication TOMORROW (12/07) During your stay, your hemoglobin A1C (average glucose reading over several months) was elevated indicating you are a diabetic. Please discuss this with your PCP for management options Continue all other regular home medications as prescribed. FOLLOW-UPS: Please follow-up with your PCP within 5-7 days Please follow-up with within 1 week Please follow-up/keep all of your subspecialty appointments Current Hospital Diet Patient's current hospital diet: AHA Diet (Heart Healthy) Discharge Diet Recommended Diet: AHA Diet (Heart Healthy), Diabetes Type 2 Diet Pending Studies Studies pending at discharge: no Laboratory Results Hemoglobin A1c Test 12/05/16 06:09 Range/Units Estimated Average Glucose 171 mg/dl Hemoglobin A1c 7.6 H 4.5-5.6 % Medical Emergencies . Who to Call and When: Medical Emergencies: If at any time you feel your situation is an emergency, please call 911 immediately. . Non-Emergent Contact Non-Emergency issues call your: Primary Care Provider . . "Provider Documentation" section prepared by Luz Maria Hernández. . VTE Core Measure Inpt VTE Proph given/why not?: Warfarin (Coumadin)
--- NOTE | 2016-12-06 10:02 | Discharge Summary ---
Discharge Summary Date of Service Dec 06, 2016. 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 COMPARISON STUDY: Right lower extremity venous Doppler February 22, 2012. TECHNIQUE: Sonography of the deep venous system of the bilateral lower extremities was performed. Compression and augmentation were evaluated. FINDINGS: This exam is compromised by suboptimal penetration. No deep venous thrombus was identified although the right popliteal and bilateral calf veins were not well visualized on this exam. IMPRESSION: Technically compromised exam due to suboptimal penetration but no deep venous thrombus identified within either lower extremity. Electronically signed by: Darinel Singh M.D. 12/03/2016 5:02 PM Dictated Date/Time: 12/03/2016 5:00 PM The status of this report is Signed. Draft = Not yet reviewed or approved by Radiologist. Signed = Reviewed and approved by Radiologist. CHEST ONE VIEW PORTABLE CLINICAL HISTORY: Respiratory distress. Dyspnea. COMPARISON STUDY: Chest radiograph June 03, 2015. FINDINGS: Lung volumes are mildly diminished. No pneumothorax or pleural effusion is present. Opacity along the left heart border likely reflects epicardial fat pad. There is no consolidation to suggest pneumonia and there is no evidence of pulmonary edema. Cardiomediastinal silhouette is stable. Old left-sided rib deformities are present. IMPRESSION: No acute cardiopulmonary findings. Electronically signed by: Darinel Singh M.D. 12/03/2016 3:33 PM Dictated Date/Time: 12/03/2016 3:32 PM The status of this report is Signed. Draft = Not yet reviewed or approved by Radiologist. Signed = Reviewed and approved by Radiologist. ECHOCARDIOGRAM: Interpretation Summary * Name: FREDDY MCNEIL Study Date: 12/04/2016 06:17 AM BP: 133/89 mmHg * Patient Location: C.2E\S\E209\S\1 HR: 85 * : 1955 (M/d/yyyy) Gender: Male Height: 74 in * Age: 61 yrs Ethnicity: CA Weight: 418 lb * Ordering Physician: Randell Chow * Referring Physician: Self, Referred * Performed By: Sonya Pantoja RDCS * * Reason For Study: AFIB * BSA: 3.0 m2 * -- Conclusions -- * Left ventricular systolic function is normal. * No regional wall motion abnormalities noted. * Ejection Fraction = 65-70%. * There is borderline concentric left ventricular hypertrophy. * No obvious valvular pathology. Procedure Details * A contrast injection of Definity was performed to improve assessment of LV function. * Contrast was injected into an intravenous site in the left arm. * One vial of Definity ultrasound contrast was diluted in normal saline to a total volume of 10 ml. A total of '2' ml of solution was administered during imaging. * Lot # [id number] of Definity utilized for procedure. * Expiration date DEC 06. * The attending nurse who injected the contrast agent was TAYLER ZHONG. Left Ventricle * The left ventricle is normal in size. * There is borderline concentric left ventricular hypertrophy. * Ejection Fraction = 65-70%. * Left ventricular systolic function is normal. * No regional wall motion abnormalities noted. Right Ventricle * The right ventricle is grossly normal size. * Right ventricular function cannot be assessed due to poor image quality. Atria * The left atrium is mildly dilated. * Right atrium not well visualized. * There is no evidence of atrial septal defect, but resolution does not allow assessment for a patent foramen ovale. Mitral Valve * The mitral valve is grossly normal. * There is no mitral valve stenosis. * Significant mitral regurgitation is absent. Tricuspid Valve * The tricuspid valve is not well visualized, but is grossly normal. * There is no tricuspid stenosis. * Significant tricuspid regurgitation is absent. Aortic Valve * The aortic valve is not well visualized. * The aortic valve opens well. * No hemodynamically significant valvular aortic stenosis. * There is no significant aortic regurgitation. Pulmonic Valve * The pulmonary valve is not well seen, but the Doppler examination is normal without significant regurgitation or stenosis. Great Vessels * The aortic root is normal size. * The pulmonary is not well visualized. Pericardium/Pleural * There is no pericardial effusion. Great Vessels * IVC not well visualized. Consultations: Cardiology (Luz Maria Hernández, KIKO) Problems/Secondary Diagnoses: Chronic abdominal wound-not infected (Qian Queen MD) Medication Reconciliation New Medications: Diltiazem Hcl (Diltiazem Hcl Er) 120 Mg Cap 120 MG PO DAILY for 30 Days, #30 TABS Amoxicillin & Pot Clavulanate (Amoxicillin/Clavulanate P) 1 Tab Tab 875 MG PO BIDM for 7 Days, #14 TAB Doxycycline Hyclate (Doxycycline Hyclate) 100 Mg Cap 100 MG PO BID for 7 Days, #14 CAP Flecainide Acetate (Flecainide Acetate) 100 Mg Tab 100 MG PO Q12 for 30 Days, #60 TAB Metoprolol Tartrate (Lopressor) (Lopressor) 50 Mg Tab 50 MG PO BID for 30 Days, #60 TAB Continued Medications: Ascorbic Acid (Vitamin C Adult Gummies 125 mg) 1 Chw Chw 1 TAB PO QAM Cyanocobalamin (Vitamin B12) 3,000 Mcg/Ml Daniel 1000 MCG INJ Q2MOS Ergocalciferol (Vitamin D) 400 Inter.unit Tab 400 INTER.UNIT PO QAM, TAB CHEWABLE Fexofenadine Hcl (Anju *) 180 Mg Tab 180 MG PO QAM, 0 Refills Furosemide (Lasix) 20 Mg Tab 20 MG PO QAM, TAB Omeprazole (Prilosec) 20 Mg Cap 20 MG PO QAM, CAP Oxybutynin Chloride (Oxybutynin Chloride) 5 Mg Tab 5 MG PO BID Potassium Ext Rel (Klor-Con) 10 Meq Tabcr 10 MEQ PO QAM, TAB Warfarin Sodium (Warfarin Sodium) 7.5 Mg Tab 7.5 MG PO DAILY, TAB [Flintstones + Iron] () 1 TABLET PO QAM [Viactiv Luigi+Vit D/K] () 1 CAPSULE PO QAM 500 IU/500 IU/40 MG Referrals At Discharge Follow up Referrals: School Janitor Referral - Within 1 Week with Bairon Baldwin M.D. Family Practice Referral - Within 1-2 Weeks with Benitez Millan M.D. Discharge Exam Review of Systems: Constitutional: No fever, No chills, No sweats, No weakness, No fatigue ENT: No hearing loss Respiratory: No cough, No shortness of breath, No hemoptysis Cardiovascular: No chest pain, No edema, No palpitations Abdomen: No pain, No nausea, No vomiting, No diarrhea, No constipation Musculoskeletal: No joint pain, No muscle pain, No swelling, No calf pain Genitourinary - Male: No hematuria, No dysuria Neurologic: No weakness, No numbness/tingling Psychiatric: No depression symptoms, No anxiety Hematologic / Lymphatic: No abnormal bleeding/bruising Integumentary: No rash, No itch, No new/changing skin lesions Physical Exam: General Appearance: no apparent distress, + obese Eyes: normal inspection, PERRL ENT: hearing grossly normal Neck: supple Respiratory/Chest: lungs clear, no respiratory distress, no accessory muscle use Cardiovascular: + irregularly irregular (rate controlled ) Abdomen / GI: normal bowel sounds, non tender, soft Extremities: no calf tenderness, + swelling (+2 pitting edema to bilateral lower extremities ), + pertinent finding (chronic stasis changes to bilateral lower extremities ) Neurologic/Psychiatric: alert, normal mood/affect, oriented x 3 Skin: normal color, warm/dry, no rash (Luz Maria Hernández, PA-C) Hospital Course Admission H&P: The patient is a 61-year-old male who presents to the emergency department with worsening right leg swelling and mild shortness of breath that began since the previous week. He has a history of RLE DVT for which she is on Coumadin chronically. He did try doubling his Lasix dose over the past few days, with no significant improvement in swelling. He reports that he is not able to lay back ever his breathing due to his obesity, but does feels that is worse since that time. Physical Exam Vital Signs Date Time Temp Pulse Resp B/P (MAP) Pulse Ox O2 Delivery O2 Flow Rate FiO2 12/03/16 18:15 95 Room Air 12/03/16 18:11 100 18 148/88 95 Room Air 12/03/16 16:21 98 20 142/75 93 Room Air 12/03/16 16:10 101 12/03/16 15:28 95 Room Air 12/03/16 14:30 36.5 105 18 144/82 95 Room Air The patient is awake, well-developed and adequately nourished, alert and oriented 3, normocephalic and atraumatic, morbidly obese, lying in bed and in no acute distress. HEENT--PERRL, EOMI, mucous membranes and oropharynx normal. Neck--supple, no JVD or bruits, thyroid normal, trachea midline, no adenopathy. Heart--normal S1 and S2, no extra beats, no murmurs, rubs or gallops. Lungs--clear bilaterally but decreased breath sounds throughout, no respiratory distress, no accessory muscle use. Abdomen--normal bowel sounds and soft, nontender and nondistended, no hernias or masses, no organomegaly. Extremities--no cyanosis, clubbing. There is bilaterally 2-3+ pitting pretibial edema. There are good distal pulses b/l. Dermatologic--right lower extremity with rash at the stocking line. Neurologic--cranial nerves II through XII grossly intact. Rheumatologic--normal range of motion limited by obesity Psychiatric--normal affect. Hospital Course: New onset a.fib- rate controlled- STABLE: - Admitted to [facility] for cardiac monitoring- a.fib w/ rates controlled - Cardiac enzymes- negative x1 - ECHO- reserved EF and no diastolic dysfunction - Diltiazem 30 mg QID- transitioned to Diltiazem ER 120 mg daily at discharge, Metoprolol tartrate 50 mg BID, Flecainide 100 mg BID - Coumadin 7.5 mg daily- monitor INR and adjust dosage PRN for goal INR 2.0-3.0 - Cardiology following, appreciate recommendations -- No need for cardioversion at this time- will f/u in 1 week to reassess patient RLE cellulitis and edema- IMPROVING: - Treated w/ IV Lasix- convert to Lasix 20 mg PO - Continue KCL supplement - Ceftriaxone 1 g IV daily and Doxycycline 100 mg BID- started on 12/03- discharge on Augmentin BID and Doxycycline BID to complete a 10 day course - / +Coag negative staph BCx- likely contamination KINJAL on CKD stage III-IV: - Follow PRP - Avoid nephrotoxic agents and renally dose medications T2DM- HgbA1C 7.6%: - BSG ACHS and sliding insulin scale - Diabetic counselling - Encourage patient to discuss w/ PCP for further management options Bladder Spasm: Oxybutynin 5 mg BID h/o DVT: Continue Coumadin 7.5 mg daily GERD: Protonix 40 mg daily DVT Prophylaxis: Coumadin Disposition: Discharge to home Total Time Spent: Greater than 30 minutes This includes examination of the patient, discharge planning, medication reconciliation, and communication with other providers. (Luz Maria Hernández, KIKO) Discharge Instructions Please refer to the electronic Patient Visit Report (Discharge Instructions) for additional information. (Luz Maria Hernández PA-C) Follow-Up Please follow-up with your PCP within 5-7 days Please follow-up with Cardiology within 1 week Please follow-up/keep all of your subspecialty appointments (Luz Maria Hernández, KIKO) Additional Copies To Benitez Millan M.D. Reviewed: Pt Seen/Exam by Me (Qian Queen MD) History Physician [employer] Point Splitter Supervision Note: I interviewed and examined the patient. Discussed with NIRU Hernández and agree with findings and plan as documented in the note. Any exceptions or clarifications are listed here: Doing very well, no SOB, no CP. Remains in rate-controlled A-fib. Chronic abdominal wound reported for 10+ years since his gastric bypass surgery-pt reports his back brace and anything he carries rubs on his wound. He is pleased with the Optifoam dressings placed here and will buy some at home. Vitals and tele reviewed Morbidly obese NAD, AAOx3 Irreg irreg, no mgr CTAB no wcr Abd +BS, soft, NT ND morbidly obese Ext 2+ pitting edema from feet to knees bilat, 2+ DP pusles bilat Skin: right medial distal leg with almost completely resolved erythematous patch ; central abdomen with 5-6cm circular chronic-appearing superficial open wound with clean edges, some granulation tissue and scabs, no surrounding erythema, no drainage, does not appear infected Pt is a 61 yo male with morbid obesity, s/p gastric bypass, chronic peripheral edema likely secondary to morbid obesity/dependent edema and venous stasis, DMII , DVT on chronic AC, here with worsening RLE edema, dyspnea, found to be in new onset atrial fibrillation with rapid response. Rates controlled with adding on metoprolol to diltiazem -continue flecainide and will f/u with Cardio in 1 week, may need to increase Flecainide or have DCCV -INR has been therapeutic -continue po lasix, oncology physician increased slightly --> f/u oncology physician as outpt with PCP or Cardiology -ECHO reviewed and preserved EF, no diastolic dysfunction -improved cellulitis, never had evidence of sepsis, BCx with 1/4 bottles Coag neg Staph, likely contaminant--continue po Augmentin and doxy -continue coumadin -For his DMII--> A1C oconsistently 7.6%--> CDE saw him today and did counseing. he is not willing to check glucose at home which makes insulin unlikely for treatment. Service Person prevents metformin use--> would consider Januvia or Tradjenta if insurance covers, vs GLP-1 like Byetta or Victoza which would be excellent for weight loss and reduction of CV risk--> advised to f/u with PCP as sometimes these require prior auths through insurance Documented By: Qian Queen (Qian Queen MD)
[2016-12-06 11:36] VITALS: BP 103/66; PULSE 62; TEMP 36.5; O2SAT 92
[2016-12-06] MEDS ORDERED: DILTIAZEM HCL 120 MG ER CAP PO ONE (13:00)
[2016-12-06 13:14] VITALS: BP 103/66; PULSE 62; TEMP 36.5; O2SAT 92
== END 2016-12-06 15:55 | disposition home or self-care (01) | DRG 309 ==
LOC: C.EDB 14:18 → C.2E 18:04 → ENRESERV 18:23
PROVIDERS: ADMIT Hospitalist; ATTEND Family Medicine
DX: I48.91 Unspecified atrial fibrillation (principal); N17.9 Acute kidney failure, unspecified; R60.0 Localized edema; N18.3 Chronic kidney disease, stage 3 (moderate); K21.9 Gastro-esophageal reflux disease without esophagitis; N32.89 Other specified disorders of bladder; E11.9 Type 2 diabetes mellitus without complications; I45.10 Unspecified right bundle-branch block; Z90.49 Acquired absence of other specified parts of digestive tract; Z79.01 Long term (current) use of anticoagulants; Z98.84 Bariatric surgery status

== ENCOUNTER 2016-12-25 07:53 | Inpatient (IN) | payer OTHER ==
[2016-12-25] VITALS (11 sets, daily range): BP systolic 108–138; BP diastolic 62–72; PULSE 63–76; TEMP 36.3–37.3; O2SAT 95–100; Ht 188 cm; Wt 170.5 kg
[~2016-12-25] VITALS: Ht 188 cm; Wt 170.5 kg
[~2016-12-25 07:53] MED LIST changes: +AMOX1TAB43 PO; +DILT120C9 PO; +DTR5 PO; +DXY100 PO; +METO50TA16 PO; -NAPR1TAB9 PO; -OXYBUTYNIN CL PO; +TMB100 PO; -WARF10TA PO
[2016-12-25] MEDS ORDERED: BUMETANIDE SOLN 1 MG/4 ML VIAL IV STA (08:12)
--- NOTE | 2016-12-25 08:21 | EMERGENCY ROOM VISIT NOTE ---
History Report prepared by Niya: Sonya Zarate Under the Supervision of: Dr. Karl Oconnell M.D. First contact with patient: 08:00 Stated Complaint: DIZZINESS/SHORTNESS OF BREATH History of Present Illness The patient is a 61 year old male who presents to the Emergency Room with complaints of persistent shortness of breath that began over one week ago. The patient reports that 1 week ago he developed breathing difficulties, and reports that for the past two days he has been feeling dizzy. He denies any cough, but notes a fever. The patient denies wearing oxygen at home and denies ever being on BiPAP in the past. He states that he has had worsened edema to his lower extremities, but states that he has been on diuretics. The patient states that he is on Coumadin, noting that he has had DVTs in his right leg. He reports a history of atrial fibrillation, and notes that his doctors have had him on Cardizem for his atrial fibrillation. The patient states that he was recently evaluated in the hospital. He denies any history of COPD or other lung diseases. O2 sat as per the medics was in the 60's prior to the application of face mask O2. Per EMR, when the patient was most recently discharged from the hospital, he was started on Flecainide, Metoprolol, and Cardizem. Source of History: patient, other (records) Onset: one week ago Position: other (global) Quality: other (shortness of breath) Timing: other (persistent) Associated Symptoms: + fevers, No cough Note: Associated Symptoms: increased swelling to his lower extremities, dizziness Review of Systems See HPI for pertinent positives & negatives. A total of 10 systems reviewed and were otherwise negative. Past Medical & Surgical Medical Problems: (1) Cellulitis (2) Fluid overload (3) New onset atrial fibrillation Surgical Problems: (1) S/P gastric bypass Family History FH: coronary artery disease Social History Smoking Status: Never Smoker Drug Use: none Occupation Status: employed Current/Historical Medications Scheduled Ascorbic Acid (Vitamin C Adult Gummies 125 mg), 1 TAB PO QAM Calcium W/ Vitamins D & K (Viactiv), 1 TAB PO DAILY Cholecalciferol (Vitamin D), 400 UNITS PO DAILY Cyanocobalamin (Vitamin B12), 1,000 MCG INJ Q2MOS Diltiazem Hcl (Diltiazem Hcl Er), 120 MG PO DAILY Fexofenadine Hcl (Anju), 180 MG PO DAILY Flecainide Acetate (Flecainide Acetate), 100 MG PO Q12 Furosemide (Lasix), 20 MG PO QAM Glimepiride (Glimepiride), 2 MG PO DAILY Metoprolol Tartrate (Lopressor) (Lopressor), 50 MG PO BID Omeprazole (Prilosec), 20 MG PO QAM Oxybutynin Chloride (Oxybutynin Chloride), 5 MG PO BID Pediatric Multiple Vitamins W/ (Flintstones Plus Iron), 1 TAB PO DAILY Potassium Chloride (K-Tabs), 10 MEQ PO DAILY Warfarin Sodium (Warfarin Sodium), 7.5 MG PO DAILY Allergies Coded Allergies: No Known Allergies (Unverified , 12/25/16) Physical Exam Vital Signs Date Time Temp Pulse Resp B/P (MAP) Pulse Ox O2 Delivery O2 Flow Rate FiO2 12/25/16 09:35 65 22 131/71 97 BiPAP 60 12/25/16 08:35 72 97 60 12/25/16 08:24 98 BiPAP 6.0 60 12/25/16 08:05 72 12/25/16 08:01 97 Non-Rebreather 15.0 12/25/16 08:01 64 Room Air 12/25/16 08:01 36.9 74 28 129/64 64 Room Air Physical Exam GENERAL: Patient is in no acute distress. HEENT: No acute trauma, normocephalic atraumatic, mucous membranes moist, no nasal congestion, no scleral icterus. NECK: No stridor, no adenopathy, no meningismus, trachea is midline. LUNGS: Diminished breath sounds bilaterally, no obvious wheezes, breath sounds equal bilaterally. HEART: Distant heart tones, rhythm seems regular, no murmurs. ABDOMEN: Soft, nontender, bowel sounds positive, no hernias, no peritonitis. Healing mid abdominal wound, no true cellulitis. EXTREMITIES: Marked bilateral pedal edema, worse on the right. No cyanosis, full range of motion of all the joints without pain or difficulty, no signs for acute trauma. NEUROLOGIC: Oriented x 3, no acute motor or sensory deficits, no focal weakness. SKIN: No rash, no jaundice, no diaphoresis. Medical Decision & Procedures ER Provider Diagnostic Interpretation: X-ray results as stated below per interpretation by tn and the radiologist: CHEST ONE VIEW PORTABLE HISTORY: 61 years-old Male EVALUATE RESPIRATORY DISTRESS.DYSPNEA acute respiratory distress COMPARISON: Chest radiograph 12/03/2016 TECHNIQUE: Portable upright AP view of the chest FINDINGS: Cardiac silhouette is moderately enlarged. Pulmonary vascular congestion is noted in addition to mild background interstitial coarsening. There are hazy patchy bibasilar alveolar opacities present without pneumothorax. Trace bilateral pleural effusions. The bones are grossly intact. IMPRESSION: 1. Cardiomegaly with mild pulmonary edema pattern and trace pleural effusions. 2. Bibasilar opacities suggest atelectasis or less likely pneumonia. The above report was generated using voice recognition software. It may contain grammatical, syntax or spelling errors. Electronically signed by: Benitez Zimmer M.D. 12/25/2016 8:53 AM Dictated Date/Time: 12/25/2016 8:52 AM Laboratory Results 12/25/16 07:25 Red Blood Count 4.46, Mean Corpuscular Volume 93.0, Mean Corpuscular Hemoglobin 28.0, Mean Corpuscular Hemoglobin Concent 30.1, Mean Platelet Volume 9.7, Neutrophils (%) (Auto) 80.2, Lymphocytes (%) (Auto) 9.5, Monocytes (%) (Auto) 7.8, Eosinophils (%) (Auto) 1.2, Basophils (%) (Auto) 0.3, Neutrophils # (Auto) 8.40, Lymphocytes # (Auto) 1.00, Monocytes # (Auto) 0.82, Eosinophils # (Auto) 0.13, Basophils # (Auto) 0.03 12/25/16 07:25 Test 12/25/16 07:25 12/25/16 09:20 White Blood Count 10.49 K/uL (4.8-10.8) Red Blood Count 4.46 M/uL (4.7-6.1) Hemoglobin 12.5 g/dL (14.0-18.0) Hematocrit 41.5 % (42-52) Mean Corpuscular Volume 93.0 fL (80-100) Mean Corpuscular Hemoglobin 28.0 pg (25-34) Mean Corpuscular Hemoglobin Concent 30.1 g/dl (32-36) Platelet Count 235 K/uL (130-400) Mean Platelet Volume 9.7 fL (7.4-10.4) Neutrophils (%) (Auto) 80.2 % Lymphocytes (%) (Auto) 9.5 % Monocytes (%) (Auto) 7.8 % Eosinophils (%) (Auto) 1.2 % Basophils (%) (Auto) 0.3 % Neutrophils # (Auto) 8.40 K/uL (1.4-6.5) Lymphocytes # (Auto) 1.00 K/uL (1.2-3.4) Monocytes # (Auto) 0.82 K/uL (0.11-0.59) Eosinophils # (Auto) 0.13 K/uL (0-0.5) Basophils # (Auto) 0.03 K/uL (0-0.2) RDW Standard Deviation 54.1 fL (36.4-46.3) RDW Coefficient of Variation 16.0 % (11.5-14.5) Immature Granulocyte % (Auto) 1.0 % Immature Granulocyte # (Auto) 0.11 K/uL (0.00-0.02) Prothrombin Time 48.2 SECONDS (9.0-12.0) Prothromb Time International Ratio 4.2 (0.9-1.1) Activated Partial Thromboplast Time 52.1 SECONDS (21.0-31.0) Partial Thromboplastin Ratio 2.0 Anion Gap 6.0 mmol/L (3-11) Est Creatinine Clear Calc Drug Dose 61.8 ml/min Estimated GFR () 34.7 Estimated GFR (Non- 30.0 BUN/Creatinine Ratio 17.4 (10-20) Calcium Level 8.3 mg/dl (8.5-10.1) Magnesium Level 2.5 mg/dl (1.8-2.4) Total Bilirubin 0.4 mg/dl (0.2-1) Aspartate Amino Transf (AST/SGOT) 24 U/L (15-37) Alanine Aminotransferase (ALT/SGPT) 49 U/L (12-78) Alkaline Phosphatase 83 U/L (45-117) Troponin I < 0.015 ng/ml (0-0.045) Pro-B-Type Natriuretic Peptide 940 pg/ml (0-900) Total Protein 7.9 gm/dl (6.4-8.2) Albumin 3.2 gm/dl (3.4-5.0) Globulin 4.7 gm/dl (2.5-4.0) Albumin/Globulin Ratio 0.7 (0.9-2) Urine Color YELLOW Urine Appearance CLEAR (CLEAR) Urine pH 5.0 (4.5-7.5) Urine Specific Hamer 1.017 (1.000-1.030) Urine Protein 1+ (NEG) Urine Glucose (UA) NEG (NEG) Urine Ketones NEG (NEG) Urine Occult Blood NEG (NEG) Urine Nitrite NEG (NEG) Urine Bilirubin NEG (NEG) Urine Urobilinogen NEG (NEG) Urine Leukocyte Esterase SMALL (NEG) Urine WBC (Auto) 10-30 /hpf (0-5) Urine RBC (Auto) 0-4 /hpf (0-4) Urine Hyaline Casts (Auto) 1-5 /lpf (0-5) Urine Epithelial Cells (Auto) >30 /lpf (0-5) Urine Bacteria (Auto) NEG (NEG) Urine Crystals AMORPHOUS SEDIMENT (NONE Urine Pathogenic Casts 1-5 GRANULAR CASTS /lpf (0) Urine Yeast (Auto) (NONE PRSENT) Laboratory results reviewed by me. Medications Administered Medications (Trade) Dose Ordered Sig/Rhea Route Start Time Stop Time Status Last Admin Dose Admin Bumetanide (Bumex Iv) 1 mg NOW STAT IV 12/25/16 08:12 12/25/16 08:16 DC 12/25/16 08:19 1 MG ECG Indication: SOB/dyspnea Rate (beats per minute): 72 Rhythm: other (wide QRS rhythm, could be a slow atrial fibrillation, sinus rhythm vs junctional rhythm) Findings: RBBB, no ectopy Comparison ECG Date: 12/05/16 Change: When compared to EKG done on 12/05/16, QRS complexes are somewhat wider. ED Course 0805: The patient was evaluated in room A3. A complete history and physical exam was performed. I discussed the treatment plan with him. He verbalized complete understanding and agreement. He will be evaluated for further treatment. 0812: Ordered Bumex IV 1 mg IV. 0913: I discussed the patients case with [place] [facility] He is going to evaluate the patient for further treatment. 1015: I reevaluated the patient and he is doing much better. The patient had a Richardson catheter placed due to being unable to urinate. I discussed the exam findings with him and I discussed the treatment plan. He verbalized complete understanding and agreement. He will be evaluated for further treatment. Medical Decision The patient is a 61 year old male who presents to the ED with complaints of shortness of breath. Differential diagnoses considered include CHF, pneumonia, pneumothorax, bronchitis, anemia, dysrhythmia, IL, electrolyte imbalance, infection. There is no leukocytosis or concerning anemia. Renal panel testing shows some acute on chronic renal failure. No hepatitis. BNP is elevated consistent with fluid overload. Chest x-ray does suggest CHF. On exam, the patient has significant bilateral pedal edema. EKG shows what I believe to be a sinus rhythm with a first-degree AV block. There is a right bundle branch block present. The EKG is difficult to interpret as there is significant baseline artifact-on the bedside satellite project site monitor, sinus rhythm appears to be present. Cardiac enzyme testing times one does not show evidence for acute cardiac injury. Blood cultures are pending. Urinalysis does not show evidence for infection. INR is elevated consistent with his Coumadin use. The patient was hypoxic as per EMS. He was requiring facemask O2. He was rapidly placed on BiPAP. He received IV Bumex. A Richardson catheter was placed as the patient was not able to urinate on his own. He is diuresing. I do think a hospital stay is required. I did speak to the patient at length. I spoke to case management, the on-call hospitalist was consulted. Of note, patient does seem to be doing well with the BiPAP. Medication Reconcilliation Current Medication List: was personally reviewed by me Consults Time Called: 906 Consulting Physician: AC Ching Returned Call: 912 I discussed the patients case with AC Ching. He is going to evaluate the patient for further treatment. Impression Primary Impression: Hypoxia Additional Impressions: CHF (congestive heart failure) Fluid overload Acute renal failure Critical Care I have personally spent greater than 40 minutes of critical care time in the direct management of this patient. This includes bedside care, interpretation of diagnostic studies, and testing, discussion with consultants, patient, and family members, and other required patient management activities. This 40 minutes is in excess of all separately billable procedures. Scribe Attestation The scribe's documentation has been prepared under my direction and personally reviewed by me in its entirety. I confirm that the note above accurately reflects all work, treatment, procedures, and medical decision making performed by me. Departure Information Dispostion Being Evaluated By Hospitalist Referrals Benitez Millan M.D. (PCP) Problem Qualifiers
[2016-12-25 08:36] LABS: BASO % 0.3 %; BASO ABS # 0.03 K/uL (0-0.2); COMPLETE YES; EOS % 1.2 %; HEMATOCRIT 41.5 % (42-52); LYMPH % 9.5 %; MEAN CORPUSCULAR HGB CONC 30.1 g/dl (32-36); MEAN PLATELET VOLUME 9.7 fL (7.4-10.4); MONO % 7.8 %; NEUT % 80.2 %; PLATELET COUNT 235 K/uL (130-400); RED BLOOD COUNT 4.46 M/uL (4.7-6.1); WHITE BLOOD COUNT 10.49 K/uL (4.8-10.8)
[2016-12-25] MEDS ORDERED: GLIM2TAB2 PO (08:37)
[2016-12-25] MEDS ORDERED: POTA10TA PO (08:37)
[2016-12-25] MEDS ORDERED: PEDICHW44 PO (08:37)
[2016-12-25] MEDS ORDERED: CHOL400T PO (08:37)
[2016-12-25] MEDS ORDERED: FEXO1TAB46 PO (08:37)
[2016-12-25] MEDS ORDERED: CALC8.5C PO (08:37)
[2016-12-25 08:43] LABS: ALT/SGPT 49 U/L (12-78); BLOOD UREA NITROGEN 40 mg/dl (7-18); BUN/CREATININE RATIO 17.4 (10-20); CALCIUM 8.3 mg/dl (8.5-10.1); CARBON DIOXIDE 27 mmol/L (21-32); CHLORIDE 105 mmol/L (98-107); GLUCOSE 161 mg/dl (70-99); MAGNESIUM 2.5 mg/dl (1.8-2.4); POTASSIUM 4.9 mmol/L (3.5-5.1); SODIUM 138 mmol/L (136-145)
[2016-12-25 08:48] LABS: ALB/GLOB RATIO 0.7 (0.9-2); ALKALINE PHOSPHATASE 83 U/L (45-117); AST/SGOT 24 U/L (15-37)
--- NOTE | 2016-12-25 08:55 | DIAGNOSTIC IMAGING REPORT ---
CHEST ONE VIEW PORTABLE HISTORY: 61 years-old Male EVALUATE RESPIRATORY DISTRESS.DYSPNEA acute respiratory distress COMPARISON: Chest radiograph 12/03/2016 TECHNIQUE: Portable upright AP view of the chest FINDINGS: Cardiac silhouette is moderately enlarged. Pulmonary vascular congestion is noted in addition to mild background interstitial coarsening. There are hazy patchy bibasilar alveolar opacities present without pneumothorax. Trace bilateral pleural effusions. The bones are grossly intact. IMPRESSION: 1. Cardiomegaly with mild pulmonary edema pattern and trace pleural effusions. 2. Bibasilar opacities suggest atelectasis or less likely pneumonia. The above report was generated using voice recognition software. It may contain grammatical, syntax or spelling errors. Electronically signed by: Benitez Zimmer M.D. 12/25/2016 8:53 AM Dictated Date/Time: 12/25/2016 8:52 AM
[2016-12-25 08:56] LABS: INR 4.2 (0.9-1.1); PROTHROMBIN TIME (PATIENT) 48.2 SECONDS (9.0-12.0)
--- NOTE | 2016-12-25 09:40 | History and Physical ---
History & Physical Date & Time of Service: Dec 25, 2016 at 09:32 Chief Complaint: Dizziness/Shortness Of Breath Primary Care Physician: Benitez Millan M.D. History of Present Illness Source: family Mr. Monzon presents today with sob over the weekend. Per his cousin, he was short of breath while out at their family camp with increasing edema and orthopnea He also became very dizzy this morning. He does not wear oxygen at home. Patient was recently here 12/06 for a.fib RVR and cellulitis. He followed up with cardiology on the where his flecainide was increased. 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 leading to 45 days at [facility].fib, cellulitis right leg, diabetes mellitus II, DVT, RBBB, LAFB, GERD, Past Medical/Surgical History Surgical Problems: (1) S/P gastric bypass Status: Resolved Family History FH: coronary artery disease Social History Smoking Status: Never Smoker Smokeless Tobacco Use: No Alcohol Use: occasionally Drug Use: none Marital Status: single Housing status: lives alone Occupational Status: employed (works at a [employer]) Immunizations History of Influenza Vaccine: No History of Tetanus Vaccine?: No History of Pneumococcal: No History of Hepatitis B Vaccine: No Multi-Drug Resistant Organisms History of MDRO: Yes Type of MDRO: VRE Allergies Coded Allergies: No Known Allergies (Unverified , 12/25/16) Home Medications Scheduled Ascorbic Acid (Vitamin C Adult Gummies 125 mg), 1 TAB PO QAM Calcium W/ Vitamins D & K (Viactiv), 1 TAB PO DAILY Cholecalciferol (Vitamin D), 400 UNITS PO DAILY Cyanocobalamin (Vitamin B12), 1,000 MCG INJ Q2MOS Diltiazem Hcl (Diltiazem Hcl Er), 120 MG PO DAILY Fexofenadine Hcl (Anju), 180 MG PO DAILY Flecainide Acetate (Flecainide Acetate), 100 MG PO Q12 Furosemide (Lasix), 20 MG PO QAM Glimepiride (Glimepiride), 2 MG PO DAILY Metoprolol Tartrate (Lopressor) (Lopressor), 50 MG PO BID Omeprazole (Prilosec), 20 MG PO QAM Oxybutynin Chloride (Oxybutynin Chloride), 5 MG PO BID Pediatric Multiple Vitamins W/ (Flintstones Plus Iron), 1 TAB PO DAILY Potassium Chloride (K-Tabs), 10 MEQ PO DAILY Warfarin Sodium (Warfarin Sodium), 7.5 MG PO DAILY Review of Systems Constitutional: No fever, No chills, No sweats Respiratory: + shortness of breath, No cough Cardiovascular: + orthopnea, + edema, No chest pain, No palpitations Abdomen: No pain, No nausea, No vomiting, No diarrhea Physical Exam Vital Signs Date Time Temp Pulse Resp B/P (MAP) Pulse Ox O2 Delivery O2 Flow Rate FiO2 12/25/16 08:35 72 97 60 12/25/16 08:24 98 BiPAP 6.0 60 12/25/16 08:05 72 12/25/16 08:01 97 Non-Rebreather 15.0 12/25/16 08:01 64 Room Air 12/25/16 08:01 36.9 74 28 129/64 64 Room Air General: disheveled with strong odor Eyes: normal inspection, PERLL Respiratory: chest non tender, coarse right base, no respiratory distress, no accessory muscle use, on bipap Cardiac: regular rate and rhythm, no rub or gallop, no murmur, no edema, no jvd GI/: active bowel sounds, no abd pain or tenderness, soft, non distended Extremities: normal range of motion, normal strength, non tender Neuro/Psych: drowsy but awakens with verbal stimulation and oriented x 3, normal mood and affect Skin: pale, reddened left lower extremity with scratches Diagnostics Laboratory Results Results Past 24 Hours Test 12/25/16 07:25 12/25/16 08:12 Range/Units White Blood Count 10.49 4.8-10.8 K/uL Red Blood Count 4.46 4.7-6.1 M/uL Hemoglobin 12.5 14.0-18.0 g/dL Hematocrit 41.5 42-52 % Mean Corpuscular Volume 93.0 80-100 fL Mean Corpuscular Hemoglobin 28.0 25-34 pg Mean Corpuscular Hemoglobin Concent 30.1 32-36 g/dl Platelet Count 235 130-400 K/uL Mean Platelet Volume 9.7 7.4-10.4 fL Neutrophils (%) (Auto) 80.2 % Lymphocytes (%) (Auto) 9.5 % Monocytes (%) (Auto) 7.8 % Eosinophils (%) (Auto) 1.2 % Basophils (%) (Auto) 0.3 % Neutrophils # (Auto) 8.40 1.4-6.5 K/uL Lymphocytes # (Auto) 1.00 1.2-3.4 K/uL Monocytes # (Auto) 0.82 0.11-0.59 K/uL Eosinophils # (Auto) 0.13 0-0.5 K/uL Basophils # (Auto) 0.03 0-0.2 K/uL RDW Standard Deviation 54.1 36.4-46.3 fL RDW Coefficient of Variation 16.0 11.5-14.5 % Immature Granulocyte % (Auto) 1.0 % Immature Granulocyte # (Auto) 0.11 0.00-0.02 K/uL Prothrombin Time 48.2 9.0-12.0 SECONDS Prothromb Time International Ratio 4.2 0.9-1.1 Activated Partial Thromboplast Time 52.1 21.0-31.0 SECONDS Partial Thromboplastin Ratio 2.0 Sodium Level 138 136-145 mmol/L Potassium Level 4.9 3.5-5.1 mmol/L Chloride Level 105 98-107 mmol/L Carbon Dioxide Level 27 21-32 mmol/L Anion Gap 6.0 3-11 mmol/L Blood Urea Nitrogen 40 7-18 mg/dl Creatinine 2.30 0.60-1.40 mg/dl Est Creatinine Clear Calc Drug Dose 61.8 ml/min Estimated GFR () 34.7 Estimated GFR (Non- 30.0 BUN/Creatinine Ratio 17.4 10-20 Random Glucose 161 70-99 mg/dl Calcium Level 8.3 8.5-10.1 mg/dl Magnesium Level 2.5 1.8-2.4 mg/dl Total Bilirubin 0.4 0.2-1 mg/dl Aspartate Amino Transf (AST/SGOT) 24 15-37 U/L Alanine Aminotransferase (ALT/SGPT) 49 12-78 U/L Alkaline Phosphatase 83 45-117 U/L Troponin I < 0.015 0-0.045 ng/ml Pro-B-Type Natriuretic Peptide 940 0-900 pg/ml Total Protein 7.9 6.4-8.2 gm/dl Albumin 3.2 3.4-5.0 gm/dl Globulin 4.7 2.5-4.0 gm/dl Albumin/Globulin Ratio 0.7 0.9-2 Microbiology Results 12/25/16 Blood Culture, Received Pending 12/25/16 Blood Culture, Received Pending Impression Assessment and Plan Mr. Monzon is a 61 year old man presenting today with sob over the weekend. Per his cousin, he was short of breath while out at their family camp with increasing edema and orthopnea He also became very dizzy this morning. He does not wear oxygen at home. Patient was recently here 12/06 for a.fib RVR and cellulitis. He followed up with cardiology on the where his flecainide was increased. PMhx of 2004 gastric bypass with complications leading to 45 days at [facility], A.fib, cellulitis right leg, diabetes mellitus II, DVT, RBBB, LAFB, GERD, morbid obesity Borderline concentric left ventricular heart failure - admit telemetry - 12/04 LVEF 65-70%, no RWMA - Bumex x1 in ED - hold off on further diuresis for now due to kidney function, may need to administer diuretics despite kidney function if respiratory status worsens. - consult cardiology - serial troponins - daily weights,strict I&Os Acute respiratory failure - requiring bipap 60% FiO2 - titrate down as able to tolerate - abg x1 - does have bilateral opacities on Xray, likely atelectasis as well as pulmonary edema. As patient is afebrile and has not had a cough, will hold off on initiation of abx pending blood culture results Acute Renal Failure - baseline creatinine appears to be around 1.5 - consult nephrology - hold diuretics for now Atrial fibrillation - tele monitor - continue flecainide and metoprolol - hold warfarin for supratherapeutic INR DMII - continue glimepiride - BSG AC&HS Skin folds excoriation/yeast - nystatin powder - wound care consult Morbid obesity - consult nutrition when more stable GERD - protonix DVT prophylaxis - hold warfarin for now due to supratherapeutic INR Full code [employer] Physician Supervision Note: I interviewed and examined the patient. Discussed with Frieda Ramirez NP and agree with findings and plan as documented in the note. Any exceptions or clarifications are listed here: None Patient with recent discharge however it becomes apparent that his hand to really usually lives with his past way in September and these had a very difficult time caring for himself he's been ordering out or eating out food it's unclear whether he is taking his medicines appropriately. His recent discharge was 4 atrial fib he now presents with fairly significant what appears to be acute diastolic heart failure he was in a wide-complex tachyarrhythmia in the ER which self converted to sinus rhythm he has marked lower extremity swelling chronic venous stasis changes and acute renal failure. His vital signs now show him to have a sinus mechanism his chest x-ray shows pulmonary edema he is improved with CPAP but does show evidence of CO2 retention on ABG His cardiac exam is distant his lungs have bibasilar rales his extremities have 2+ edema with skin changes 61-year-old male here with acute on chronic diastolic heart failure, history of atrial fib on antiarrhythmics and anticoagulation, acute renal failure and a difficult psychosocial situation For the atrial fibrillation we'll reduce his flecainide dose due to concern for the wide-complex tachycardia and a prolonged QT in conjunction with his renal failure cardiology consultation undertaken no maintain his other rate controlling medications For acute renal failure appreciate Dr. Marquez's input will continue the diuretics for negative fluid balance and improve ventilation Acute hypercarbic respiratory failure we'll maintain CPAP BiPAP until we achieve diuresis Not mentioned above marked candidal skin infections will employ nystatin powder Coagulopathy from Coumadin INR 4.2 currently on hold this will also services DVT prevention at this time Documented By: Humberto Vela Advanced Directives Existing Advance Directive: No Existing Living Will: No Existing Power of Classification Analyst: No Existing Health Care Proxy: No Resuscitation Status FULL RESUSCITATION VTE Prophylaxis VTE Risk Assessment Done? Y/N: Yes Risk Level: Moderate Given or contraindicated: Warfarin (Coumadin) Social Service Consult None Apply
[2016-12-25 09:48] LABS: URINE APPEARANCE CLEAR (CLEAR); URINE BILIRUBIN NEG (NEG); URINE COLOR YELLOW; URINE EPITHELIAL CELL AUTO >30 /lpf (0-5); URINE NITRITE NEG (NEG); URINE SPECIFIC GRAVITY 1.017 (1.000-1.030); UROBILINOGEN NEG (NEG)
[2016-12-25 09:51] LABS: MANUAL MICROSCOPIC REQUIRED? NO; REVIEW REQ? YES
[2016-12-25 10:09] LABS: URINE PATH CASTS 1-5 GRANULAR CASTS /lpf (0)
[2016-12-25 11:28] LABS: ARTERIAL BLOOD GAS BASE EXCESS -1.2 mEq/L (-9-1.8); ARTERIAL BLOOD GAS HCO3 28 mmol/L (19-24); ARTERIAL BLOOD GAS PO2 92 mm/Hg (80-95)
[2016-12-25 11:29] LABS: ALLEN TEST POS (POS); O2 ADMINISTRATION 60% BIPAP
--- NOTE | 2016-12-25 18:15 | Nephrology Consultation ---
Nephrology Consultation Date & Providers Date of Consultation: Dec 25, 2016. Primary Care Provider: Benitez Millan M.D. Referring Provider: Reason for Consultation Acute renal insufficiency History of Present Illness Mr. Hank Monzon is a 61-year-old male seen and evaluated this afternoon for assessment of acute renal insufficiency. Serum creatinine measured at 2.3 mg/dL. Creatinine was 1.5 mg/dL last month. Hank presented to the ED today with progressive dyspnea. He was placed on CPAP. He received 1 mg IV Bumex. At this time, respiratory rate is improving. CXR documented pulmonary vascular congestion, mild interstitial edema and small pleural effusions. EKG documented a wide QRS rhythm at 72 bpm with a QTc of 503. Telemetry reviewed later showing sinus rhythm at 65 bpm with a first degree AV block. Hank was hospitalized 12/03/2016 through 12/06/2016 for new onset atrial fibrillation with rapid ventricular response as well as lower extremity edema and cellulitis. He initially presented with right leg swelling and mild shortness of breath for 1 week. Does have a history of prior right lower extremity DVT and for this reason is on warfarin chronically. At the time of presentation he was found to be in atrial fibrillation with RVR, a new diagnosis. Echocardiogram revealed LVEF 65-70%, no regional wall motion abnormality, no valvular pathology. Left atrium was mildly dilated. Right atrium was not well visualized. He was started on short-acting diltiazem ultimately transitioning to diltiazem ER 120 milligrams daily, metoprolol 50 milligrams b.i.d. and flecainide 100 milligrams b.i.d. He was also started on warfarin. He was seen by Cardiology. During recent outpatient cardiology follow up flecainide was increased to 150 mg b.i.d. He was also treated for right lower extremity cellulitis with intravenous ceftriaxone and oral doxycycline, transition to oral Augmentin and doxycycline prior to discharge. He was treated with intravenous furosemide which was ultimately converted to oral furosemide. He did have 1 of 2 blood cultures positive for coag-negative staph which was felt to be contamination. He also was felt to have acute kidney injury on top of his chronic kidney disease, stage III. Creatinine was approximately 1.5 mg/dL. His diabetes has been suboptimally controlled with HbA1c of 7.6%. He overall feels better this afternoon at the time of my assessment. Cardiology consultation is pending. His right leg edema and erythema are reportedly improving. He denies palpitations or chest pain. Orthopnea and shortness of breath have been worsening over the past 48 hours. He denies any urinary complaints. Past Medical/Surgical History Medical: Atrial fibrillation RBBB, fascicular block History of DVT R LE History of gastric bypass surgery Morbid obesity Nephrolithiasis DM II A1c 7.6% Surgical: Gastric bypass surgery Cholecystectomy Ureteroscopy Cryoablation of renal mass Allergies Coded Allergies: No Known Allergies (Unverified , 12/25/16) Inpatient Medications Current Inpatient Medications Medications (Trade) Dose Ordered Sig/Rhea Route Start Time Stop Time Status Last Admin Dose Admin Diltiazem HCl (Dilacor Xr Cap) 120 mg DAILY PO 12/26/16 09:00 01/25/17 08:59 Fexofenadine HCl (Anju Tab) 180 mg DAILY PO 12/26/16 09:00 01/25/17 08:59 Flecainide Acetate (Tambocor Tab) 100 mg Q12 PO 12/25/16 21:00 01/24/17 20:59 Glimepiride (Amaryl Tab) 2 mg QDB PO 12/26/16 07:30 01/25/17 07:29 Metoprolol Tartrate (Lopressor Tab) 50 mg BID PO 12/25/16 21:00 01/24/17 20:59 Oxybutynin Chloride (Ditropan Tab) 5 mg BID PO 12/25/16 21:00 01/24/17 20:59 Ascorbic Acid (Vitamin C Tab) 500 mg DAILY PO 12/26/16 09:00 01/25/17 08:59 Calcium/Vitamin D (Caltrate Plus Tab) 1 tab DAILY PO 12/26/16 09:00 01/25/17 08:59 Cyanocobalamin (Vitamin B-12 Inj) 1,000 mcg Q60D@0900 IM 01/18/17 09:00 02/17/17 08:59 Pantoprazole Sodium (Protonix Tab) 40 mg QAM PO 12/26/16 09:00 01/25/17 08:59 Multivitamins (Flintstones Complete Tab) 1 tab QAM PO 12/26/16 09:00 01/25/17 08:59 Nystatin (Mycostatin Powder) 1 appln BID EXT 12/25/16 21:00 01/24/17 20:59 Family History FH: coronary artery disease Social History Smoking Status: Never Smoker Smokeless Tobacco Use: No Alcohol Use: occasionally Drug Use: none Marital Status: single Housing Status: lives alone 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 Pertinent positives are noted above. All other systems are negative. Physical Exam Date Time Temp Pulse Resp B/P (MAP) Pulse Ox O2 Delivery O2 Flow Rate FiO2 12/25/16 16:05 36.3 63 21 108/62 (77) 100 BiPAP 12/25/16 13:25 63 18 138/72 98 BiPAP 60 12/25/16 12:58 68 98 60 12/25/16 12:16 64 18 138/72 96 BiPAP 60 12/25/16 12:09 97 60 12/25/16 11:05 63 18 131/67 97 BiPAP 12/25/16 10:56 64 12/25/16 09:35 65 22 131/71 97 BiPAP 60 12/25/16 08:35 72 97 60 12/25/16 08:24 98 BiPAP 6.0 60 12/25/16 08:05 72 12/25/16 08:01 97 Non-Rebreather 15.0 12/25/16 08:01 64 Room Air 12/25/16 08:01 36.9 74 28 129/64 64 Room Air General Appearance: no apparent distress, + obese Head: normocephalic, atraumatic Eyes: normal inspection, sclerae normal ENT: normal ENT inspection, + pertinent finding (NIPPV mask) Neck: supple, + pertinent finding (thick, unable to appreciate JVP) Respiratory/Chest: no respiratory distress, no accessory muscle use, + decreased breath sounds Cardiovascular: regular rate, rhythm, no gallop, no murmur Abdomen/GI: + pertinent finding (obese, soft, non tender, surgical scar) Extremities/Musculoskelatal: + pertinent finding (+3 R>L pitting LE edema) Neurologic/Psych: alert, normal mood/affect Laboratory Results Last 24 Hours Test 12/25/16 07:25 12/25/16 09:20 12/25/16 11:18 12/25/16 16:13 White Blood Count 10.49 K/uL Red Blood Count 4.46 M/uL Hemoglobin 12.5 g/dL Hematocrit 41.5 % Mean Corpuscular Volume 93.0 fL Mean Corpuscular Hemoglobin 28.0 pg Mean Corpuscular Hemoglobin Concent 30.1 g/dl Platelet Count 235 K/uL Mean Platelet Volume 9.7 fL Neutrophils (%) (Auto) 80.2 % Lymphocytes (%) (Auto) 9.5 % Monocytes (%) (Auto) 7.8 % Eosinophils (%) (Auto) 1.2 % Basophils (%) (Auto) 0.3 % Neutrophils # (Auto) 8.40 K/uL Lymphocytes # (Auto) 1.00 K/uL Monocytes # (Auto) 0.82 K/uL Eosinophils # (Auto) 0.13 K/uL Basophils # (Auto) 0.03 K/uL RDW Standard Deviation 54.1 fL RDW Coefficient of Variation 16.0 % Immature Granulocyte % (Auto) 1.0 % Immature Granulocyte # (Auto) 0.11 K/uL Prothrombin Time 48.2 SECONDS Prothromb Time International Ratio 4.2 Activated Partial Thromboplast Time 52.1 SECONDS Partial Thromboplastin Ratio 2.0 Sodium Level 138 mmol/L Potassium Level 4.9 mmol/L Chloride Level 105 mmol/L Carbon Dioxide Level 27 mmol/L Anion Gap 6.0 mmol/L Blood Urea Nitrogen 40 mg/dl Creatinine 2.30 mg/dl Est Creatinine Clear Calc Drug Dose 61.8 ml/min Estimated GFR () 34.7 Estimated GFR (Non- 30.0 BUN/Creatinine Ratio 17.4 Random Glucose 161 mg/dl Calcium Level 8.3 mg/dl Magnesium Level 2.5 mg/dl Total Bilirubin 0.4 mg/dl Aspartate Amino Transf (AST/SGOT) 24 U/L Alanine Aminotransferase (ALT/SGPT) 49 U/L Alkaline Phosphatase 83 U/L Troponin I < 0.015 ng/ml < 0.015 ng/ml Pro-B-Type Natriuretic Peptide 940 pg/ml Total Protein 7.9 gm/dl Albumin 3.2 gm/dl Globulin 4.7 gm/dl Albumin/Globulin Ratio 0.7 Urine Color YELLOW Urine Appearance CLEAR Urine pH 5.0 Urine Specific [place] 1.017 Urine Protein 1+ Urine Glucose (UA) NEG Urine Ketones NEG Urine Occult Blood NEG Urine Nitrite NEG Urine Bilirubin NEG Urine Urobilinogen NEG Urine Leukocyte Esterase SMALL Urine WBC (Auto) 10-30 /hpf Urine RBC (Auto) 0-4 /hpf Urine Hyaline Casts (Auto) 1-5 /lpf Urine Epithelial Cells (Auto) >30 /lpf Urine Bacteria (Auto) NEG Urine Crystals AMORPHOUS SEDIMENT Urine Pathogenic Casts 1-5 GRANULAR CASTS /lpf Urine Yeast (Auto) Arterial Blood pH 7.20 Arterial Blood Partial Pressure CO2 75 mmHg Arterial Blood Partial Pressure O2 92 mm/Hg Arterial Blood HCO3 28 mmol/L Arterial Blood Oxygen Saturation 95.0 % Arterial Blood Base Excess -1.2 mEq/L Arterial Blood Gas Delivery 60% BIPAP Randell Test POS Test 12/25/16 16:21 Bedside Glucose 109 mg/dl Impression (1) Atrial fibrillation (2) Acute renal insufficiency (3) CKD (chronic kidney disease), stage III (4) CHF (congestive heart failure) Mr. Hank Monzon is a morbidly obese 61-year-old male with acute renal insufficiency. He is non-oliguric. Metabolic profile is otherwise acceptable. Volume status hypervolemic. Medical history notable for recent diagnosis of new atrial fibrillation. Blood pressure acceptable. Telemetry documented sinus rhythm. QTc >500 on EKG. Dyspnea improved with CPAP. UOP -800 ml. Urine analysis notable for 10-30 WBC, no RBC, granular casts noted. KINJAL is consistent with ATN by microscopy and clinical history. No specific nephrotoxic medications identified. Differential would include prerenal azotemia , KINJAL (possibly related to antibiotics including Augmentin). Recommendations -- Loop diuretics to encourage a negative fluid balance. Goal approximately -1L/ 24 hr. Patient had been on furosemide at home and Bumex given in the ED. Will re -evaluate in the AM for the role of additional diuretics. -- Document I/O's. -- Repeat metabolic profile tomorrow AM. -- Obtain renal US if creatinine continues to rise. -- If renal function does not improve, hold glimepiride and start SSI coverage. -- Urine for eos. -- Suggest holding flecainide for prolonged QTc. -- Cardiology consult pending.
[2016-12-25] MEDS ORDERED: FLECAINIDE ACETATE 100 MG TAB PO SCH (21:00)
[2016-12-25] MEDS: NYSTATIN POWDER 15GM BTL EXT SCH (21:09)
[2016-12-25] MEDS: OXYBUTYNIN CHLORIDE 5 MG TAB PO SCH (21:10)
[2016-12-25] MEDS: METOPROLOL TARTRATE 50 MG TAB PO SCH (21:10)
[2016-12-25] MEDS ORDERED: VANCOMYCIN INJ 2,000 MG in SODIUM CHLORIDE 0.9% 500ML 500 ML IV STA (22:40)
[2016-12-25] MEDS ORDERED: VANCOMYCIN CONSULT ACTIVE PRN (22:50)
[2016-12-25] MEDS ORDERED: AMPICILLIN/SULBACTAM CONSULT ACTIVE PRN ×2 (23:00)
[2016-12-25] MEDS: AMPICILLIN/SULBACTAM SOD INJ 3,000 MG in SODIUM CHLORIDE 0.9% 100ML 100 ML IV SCH (23:49)
[2016-12-26] VITALS (14 sets, daily range): BP systolic 103–140; BP diastolic 53–89; PULSE 61–88; TEMP 36.4–37.7; O2SAT 87–97
[2016-12-26] MEDS ORDERED: VANCOMYCIN INJ 2,000 MG in SODIUM CHLORIDE 0.9% 500ML 500 ML IV ONE (04:00)
[2016-12-26] MEDS: AMPICILLIN/SULBACTAM SOD INJ 3,000 MG in SODIUM CHLORIDE 0.9% 100ML 100 ML IV SCH ×2 (06:19→12:18)
[2016-12-26 06:24] LABS: INFLUENZA A PCR Neg for Influ A (NEG); INFLUENZA B PCR Neg for Influ B (NEG)
[2016-12-26 06:31] LABS: HEMATOCRIT 38.2 % (42-52); MEAN CORPUSCULAR HEMOGLOBIN 29.4 pg (25-34); MEAN CORPUSCULAR HGB CONC 30.9 g/dl (32-36); MEAN PLATELET VOLUME 9.7 fL (7.4-10.4); PLATELET COUNT 181 K/uL (130-400); RED BLOOD COUNT 4.02 M/uL (4.7-6.1)
[2016-12-26 07:02] LABS: BUN/CREATININE RATIO 18.3 (10-20); CALCIUM 7.9 mg/dl (8.5-10.1); CREATININE 1.96 mg/dl (0.60-1.40); POTASSIUM 5.2 mmol/L (3.5-5.1)
[2016-12-26 07:33] LABS: INR 4.1 (0.9-1.1); PROTHROMBIN TIME (PATIENT) 46.9 SECONDS (9.0-12.0)
[2016-12-26] MEDS: OXYBUTYNIN CHLORIDE 5 MG TAB PO SCH ×2 (07:53→21:20)
[2016-12-26] MEDS: CALCIUM 600MG + VIT D 400 IU TAB PO SCH (07:53)
[2016-12-26] MEDS: ASCORBIC ACID 500 MG TAB PO SCH (07:54)
[2016-12-26] MEDS: METOPROLOL TARTRATE 50 MG TAB PO SCH ×2 (07:55→21:20)
[2016-12-26] MEDS: FLINTSTONES COMPLETE CHEWABLE TAB PO SCH (07:55)
[2016-12-26] MEDS: PANTOprazole SOD 40 MG TAB PO SCH (07:57)
[2016-12-26] MEDS: FEXOFENADINE HCL 180 MG TAB PO SCH (07:57)
[2016-12-26] MEDS: DILTIAZEM HCL 120 MG ER CAP PO SCH (07:57)
[2016-12-26] MEDS: GLIMEPIRIDE 2 MG TAB PO SCH (07:58)
[2016-12-26] MEDS: NYSTATIN POWDER 15GM BTL EXT SCH ×2 (07:58→22:16)
[2016-12-26] MEDS ORDERED: FLECAINIDE ACETATE 100 MG TAB PO SCH (09:00)
[2016-12-26] MEDS ORDERED: POTASSIUM CHLORIDE 10 MEQ PO SCH (09:00)
[2016-12-26] MEDS ORDERED: WARFARIN SOD 7.5 MG TAB PO SCH (09:00)
--- NOTE | 2016-12-26 09:20 | Nephrology Progress Note ---
Nephrology Progress Note Date of Service Dec 26, 2016. Chief Complaint Acute renal insufficiency Subjective No acute events overnight. Hank states that he feels better this morning. He remains on supplemental O2. Denies chest pain or palpitations. Dyspneic with minimal activities. No lightheadedness or dizziness. Appetite fair. Richardson intake. Review of Systems A complete review of systems was performed. Pertinent positives are noted above. All other systems are negative. Vital Signs Last 8 Hrs Date Time Temp Pulse Resp B/P (MAP) Pulse Ox O2 Delivery O2 Flow Rate FiO2 12/26/16 08:04 37.3 74 23 134/67 (89) 96 12/26/16 05:00 BiPAP 60 12/26/16 03:52 37.7 71 22 137/53 (81) 92 CPAP 12/26/16 02:05 70 95 60 Last Recorded Weight Weight (Kilograms): 188.700 Physical Exam General Appearance: no apparent distress, + obese Head: normocephalic, atraumatic Eyes: normal inspection, sclerae normal ENT: normal ENT inspection, pharynx normal Neck: supple, + pertinent finding (Unable to appreciate JVP) Respiratory/Chest: no respiratory distress, no accessory muscle use, + decreased breath sounds Cardiovascular: regular rate, rhythm Abdomen/GI: non tender, soft, + pertinent finding (obese) Genitourinary - Male: + pertinent finding (Richardson draining clear urine) Extremities/Musculoskelatal: + pertinent finding (+3 BL LE edema) Neurologic/Psych: alert, normal mood/affect Family History FH: coronary artery disease Social History Smoking Status: Never smoker Smokeless Tobacco Use: No Alcohol Use: occasionally Drug Use: none Marital Status: single Housing Status: lives alone Occupation: employed (works at a [employer]) Laboratory Results Past 24 Hours 12/26/16 06:07 12/26/16 06:07 Test 12/25/16 09:20 12/25/16 11:18 12/25/16 16:13 12/25/16 16:21 Urine Color YELLOW Urine Appearance CLEAR (CLEAR) Urine pH 5.0 (4.5-7.5) Urine Specific [place] 1.017 (1.000-1.030) Urine Protein 1+ (NEG) Urine Glucose (UA) NEG (NEG) Urine Ketones NEG (NEG) Urine Occult Blood NEG (NEG) Urine Nitrite NEG (NEG) Urine Bilirubin NEG (NEG) Urine Urobilinogen NEG (NEG) Urine Leukocyte Esterase SMALL (NEG) Urine WBC (Auto) 10-30 /hpf (0-5) Urine RBC (Auto) 0-4 /hpf (0-4) Urine Hyaline Casts (Auto) 1-5 /lpf (0-5) Urine Epithelial Cells (Auto) >30 /lpf (0-5) Urine Bacteria (Auto) NEG (NEG) Urine Crystals AMORPHOUS SEDIMENT (NONE Urine Pathogenic Casts 1-5 GRANULAR CASTS /lpf (0) Urine Yeast (Auto) (NONE PRSENT) Arterial Blood pH 7.20 (7.35-7.45) Arterial Blood Partial Pressure CO2 75 mmHg (35-46) Arterial Blood Partial Pressure O2 92 mm/Hg (80-95) Arterial Blood HCO3 28 mmol/L (19-24) Arterial Blood Oxygen Saturation 95.0 % (90-95) Arterial Blood Base Excess -1.2 mEq/L (-9-1.8) Arterial Blood Gas Delivery 60% BIPAP Randell Test POS (POS) Troponin I < 0.015 ng/ml (0-0.045) Bedside Glucose 109 mg/dl (70-99) Test 12/25/16 20:03 12/26/16 00:33 12/26/16 04:30 12/26/16 05:54 Bedside Glucose 101 mg/dl (70-99) 129 mg/dl (70-99) Troponin I < 0.015 ng/ml (0-0.045) Influenza Type A (RT-PCR) Neg for Influ A (NEG) Influenza Type A Antigen Neg for Influ A (NEG) Influenza Type B Antigen Neg for Influ B (NEG) Influenza Type B (RT-PCR) Neg for Influ B (NEG) Test 12/26/16 06:07 Red Blood Count 4.02 M/uL (4.7-6.1) Mean Corpuscular Volume 95.0 fL (80-100) Mean Corpuscular Hemoglobin 29.4 pg (25-34) Mean Corpuscular Hemoglobin Concent 30.9 g/dl (32-36) RDW Standard Deviation 55.5 fL (36.4-46.3) RDW Coefficient of Variation 16.0 % (11.5-14.5) Mean Platelet Volume 9.7 fL (7.4-10.4) Prothrombin Time 46.9 SECONDS (9.0-12.0) Prothromb Time International Ratio 4.1 (0.9-1.1) Anion Gap 3.0 mmol/L (3-11) Est Creatinine Clear Calc Drug Dose 71.6 ml/min Estimated GFR () 42.1 Estimated GFR (Non- 36.4 BUN/Creatinine Ratio 18.3 (10-20) Calcium Level 7.9 mg/dl (8.5-10.1) Date/Time Source Procedure Growth Status 12/26/16 04:30 Nasal MRSA DNA Surveillance Screen - Final Specimen Negative for MRSA by DNA Probe Complete Allergies Coded Allergies: No Known Allergies (Unverified , 12/25/16) Medications Current Inpatient Medications Medications (Trade) Dose Ordered Sig/Rhea Route Start Time Stop Time Status Last Admin Dose Admin Diltiazem HCl (Dilacor Xr Cap) 120 mg DAILY PO 12/26/16 09:00 01/25/17 08:59 12/26/16 07:57 120 MG Fexofenadine HCl (Anju Tab) 180 mg DAILY PO 12/26/16 09:00 01/25/17 08:59 12/26/16 07:57 180 MG Glimepiride (Amaryl Tab) 2 mg QDB PO 12/26/16 07:30 01/25/17 07:29 12/26/16 07:58 2 MG Metoprolol Tartrate (Lopressor Tab) 50 mg BID PO 12/25/16 21:00 01/24/17 20:59 12/26/16 07:55 50 MG Oxybutynin Chloride (Ditropan Tab) 5 mg BID PO 12/25/16 21:00 01/24/17 20:59 12/26/16 07:53 5 MG Ascorbic Acid (Vitamin C Tab) 500 mg DAILY PO 12/26/16 09:00 01/25/17 08:59 12/26/16 07:54 500 MG Calcium/Vitamin D (Caltrate Plus Tab) 1 tab DAILY PO 12/26/16 09:00 01/25/17 08:59 12/26/16 07:53 1 TAB Cyanocobalamin (Vitamin B-12 Inj) 1,000 mcg Q60D@0900 IM 01/18/17 09:00 02/17/17 08:59 Pantoprazole Sodium (Protonix Tab) 40 mg QAM PO 12/26/16 09:00 01/25/17 08:59 12/26/16 07:57 40 MG Multivitamins (Flintstones Complete Tab) 1 tab QAM PO 12/26/16 09:00 01/25/17 08:59 12/26/16 07:55 1 TAB Nystatin (Mycostatin Powder) 1 appln BID EXT 12/25/16 21:00 01/24/17 20:59 12/26/16 07:58 1 APPLN Ampicillin Sodium/ Sulbactam Sodium 3000 mg/Sodium Chloride 108 ml @ 200 mls/hr Q6H IV 12/26/16 00:00 01/02/17 00:00 12/26/16 06:19 200 MLS/HR Vancomycin HCl (Consult) 1 ea UD PRN N/A 12/25/16 22:50 01/24/17 22:49 Ampicillin Sodium/ Sulbactam Sodium (Consult) 1 ea UD PRN N/A 12/25/16 23:00 01/24/17 22:59 Impression (1) Atrial fibrillation (2) Acute renal insufficiency (3) CKD (chronic kidney disease), stage III (4) CHF (congestive heart failure) Mr. Hank Monzon is a morbidly obese 61-year-old male with acute renal insufficiency. He is non-oliguric. Metabolic profile notable for mild hyperkalemia this morning. Volume status hypervolemic. Medical history notable for recent diagnosis of new atrial fibrillation. Blood pressure acceptable. Cardiology consult pending. Urine analysis notable for 10-30 WBC, no RBC, granular casts noted. KINJAL is consistent with ATN and prerenal azotemia. No specific nephrotoxic medications identified. Blood culture 1 of 2 positive for strep. Recommendations -- Loop diuretics to encourage a negative fluid balance. Restart furosemide 40 mg daily now. -- Document I/O's. -- Repeat metabolic profile this afternoon and tomorrow morning. -- Cardiology consult. -- Renal diet. -- Richardson to gravity.
[2016-12-26] MEDS ORDERED: FUROSEMIDE 40 MG TAB PO ONE (10:00)
--- NOTE | 2016-12-26 11:23 | Pharmacy Progress Note ---
Pharmacy Abx Initial Consult Date of Service Dec 26, 2016. Pharmacy Dosing Scope Date of Consult: 12/26/16 Consultation requested by: Dr. Hager Pharmacy is consulted to initiate IV VANCOMYCIN AND UNASYN therapy, order appropriate labs and adjust drug dose/frequency. Subjective The patient is a 61 year old male admitted on Dec 25, 2016 at 10:38 for increased dizziness, SOB, edema and orthopnea. Empiric abx therapy initiated for possible pneumonia / bacteremia Objective Height (Feet): 6 Height (Inches): 2.00 Weight (Kilograms): 188.700 Vital Signs (Past 12Hrs) Vital Signs Past 12 Hours Date Time Temp Pulse Resp B/P (MAP) Pulse Ox O2 Delivery O2 Flow Rate FiO2 12/26/16 11:09 36.5 61 22 108/56 (73) 95 BiPAP 12/26/16 10:00 BiPAP 12/26/16 08:04 37.3 74 23 134/67 (89) 96 12/26/16 05:00 BiPAP 60 12/26/16 03:52 37.7 71 22 137/53 (81) 92 CPAP 12/26/16 02:05 70 95 60 12/26/16 00:01 BiPAP 60 12/25/16 23:27 37.3 76 20 122/65 (84) 95 BiPAP Lab Results (24Hrs) Laboratory Tests (24 Hours) Test 12/26/16 06:07 White Blood Count 8.60 K/uL (4.8-10.8) Micro Results Date/Time Source Procedure Growth Status 12/25/16 08:25 Blood Blood Culture - Final Alpha Strep Not S.pne/Enteroco Complete 12/25/16 08:02 Blood Blood Culture Pending Received 12/26/16 04:30 Nasal MRSA DNA Surveillance Screen - Final Specimen Negative for MRSA by DNA Probe Complete Risk Factors for Resistance * Hospitalization for 48 hours or more within the past 90 days (12/03/16) * History of infection with a multidrug-resistant organism: VRE * Antimicrobial use within the last 90 days (Augmentin, Bactrim and Ceftriaxone 11/2016) Assessment & Plan Assessment * 61 year old male admitted for increased SOB, orthopnea and edema. Initially felt to be secondary to HF, but the possibility of pneumonia also entertained as CXR read as bibasilar opacities suggesting atelectasis or less likely pneumonia and one of the patient's blood cx's is growing alpha-hemolytic strep ( possibly viridans or strep pn). As a result empiric abx therapy initiated. * Tmax 37.7 last 24 hrs, no leukocytosis noted * No tachycardia or hypotension noted; O2 sats 95-96 on BIPAP FiO2 60% * KINJAL present, baseline SCr ~1.5 ? SCr down to 1.96 today (2.3 on initial labs) ; good U.O. last 24 hrs (bumetanide IV given yesterday AM) Plan Vancomycin IV * Loading dose: 2000mg x 1 at 2253 12/25 + 2000mg x 1 at 0438 12/26 to complete loading regimen * Maintenance dose: 2000 mg IV (10.6 mg/kg) every 12 hours * Goal trough level for bacteremia / pulm infxn : 15 to 20 mcg/mL * Trough level ordered for 12/28/16 w/ 4th maintenance dose * p'kinetic estimates: Vd 0.55L/kg (due to BMI > 50); half-life ~11-12 hours Unasyn * No renal adjustment required unless eCrCl < 30cc/min; pt's eCrCl 60-70cc/min * Continue 3gm IV Q 6 hours Pharmacy will continue to follow and will adjust dose/frequency as necessary. Thank you.
[2016-12-26] MEDS ORDERED: FUROSEMIDE INJ 40 MG in SYRINGE 0 ML IV ONE (13:00)
--- NOTE | 2016-12-26 13:15 | Cardiology Consultation ---
Cardiology Consultation Date of Consultation: Dec 26, 2016. Requesting Physician: Dane Reason for Consultation: Atrial fibrillation Pt evaluation today including: conversation w/ patient, physical exam, chart review, lab review, review of studies, review of inpatient medication list, conversation w/ attending History of Present Illness The patient is a 61-year-old gentleman with a history of atrial fibrillation who was recently admitted to [facility] on December 07. At that time he was noted to have lower extremity edema and some mildly worsening dyspnea. He has also discovered to have atrial fibrillation that had not been previously documented. He was sent home on a medical regimen for atrial fibrillation and managed to follow up in the clinic on 1 occasion since discharge. However, he reports feeling worse over the past several days to the point where he had incapacitating dyspnea and fatigue. Patient states that for several days his breathing became worse and he noticed some swelling. This was most apparent in his lower extremities. He also had some mild dizziness and overall fatigue. On Sunday he felt that he could not go to work and eventually was evaluated in [facility] where he was felt to have an element of pulmonary vascular congestion and atrial fibrillation. The patient was placed on BiPAP therapy and underwent an element of diuresis. He states his breathing is better compared to yesterday. He continues to have an element of edema. He states that he has attempted to be compliant with his medical therapy but admits taking more flecainide then prescribed. He also reports eating out exclusively since his aunt 3 months ago. He does not describe any symptoms of chest discomfort. He is not aware of any palpitations or racing heartbeats. He is ambulatory and generally is able to perform usual activity without significant dyspnea or other symptom. 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 He has not had any fevers or chills. He has not describe any changes bowel habits but does report less frequent urination recently. All Other Systems: Reviewed and Negative Allergies Coded Allergies: No Known Allergies (Unverified , 12/25/16) Medications Current Inpatient Medications Medications (Trade) Dose Ordered Sig/Rhea Route Start Time Stop Time Status Last Admin Dose Admin Diltiazem HCl (Dilacor Xr Cap) 120 mg DAILY PO 12/26/16 09:00 01/25/17 08:59 12/26/16 07:57 120 MG Fexofenadine HCl (Anju Tab) 180 mg DAILY PO 12/26/16 09:00 01/25/17 08:59 12/26/16 07:57 180 MG Glimepiride (Amaryl Tab) 2 mg QDB PO 12/26/16 07:30 01/25/17 07:29 12/26/16 07:58 2 MG Metoprolol Tartrate (Lopressor Tab) 50 mg BID PO 12/25/16 21:00 01/24/17 20:59 12/26/16 07:55 50 MG Oxybutynin Chloride (Ditropan Tab) 5 mg BID PO 12/25/16 21:00 01/24/17 20:59 12/26/16 07:53 5 MG Ascorbic Acid (Vitamin C Tab) 500 mg DAILY PO 12/26/16 09:00 01/25/17 08:59 12/26/16 07:54 500 MG Calcium/Vitamin D (Caltrate Plus Tab) 1 tab DAILY PO 12/26/16 09:00 01/25/17 08:59 12/26/16 07:53 1 TAB Cyanocobalamin (Vitamin B-12 Inj) 1,000 mcg Q60D@0900 IM 01/18/17 09:00 02/17/17 08:59 Pantoprazole Sodium (Protonix Tab) 40 mg QAM PO 12/26/16 09:00 01/25/17 08:59 12/26/16 07:57 40 MG Multivitamins (Flintstones Complete Tab) 1 tab QAM PO 12/26/16 09:00 01/25/17 08:59 12/26/16 07:55 1 TAB Nystatin (Mycostatin Powder) 1 appln BID EXT 12/25/16 21:00 01/24/17 20:59 12/26/16 07:58 1 APPLN Ampicillin Sodium/ Sulbactam Sodium 3000 mg/Sodium Chloride 108 ml @ 200 mls/hr Q6H IV 12/26/16 00:00 01/02/17 00:00 12/26/16 12:18 200 MLS/HR Vancomycin HCl (Consult) 1 ea UD PRN N/A 12/25/16 22:50 01/24/17 22:49 Ampicillin Sodium/ Sulbactam Sodium (Consult) 1 ea UD PRN N/A 12/25/16 23:00 01/24/17 22:59 Vancomycin HCl 2000 mg/Sodium Chloride 540 ml @ 200 mls/hr Q12H IV 12/26/16 16:00 01/09/17 15:59 Furosemide 40 mg/ Syringe 4 ml @ 4 mls/min NOW ONCE IV 12/26/16 13:00 12/26/16 13:01 Physical Exam Vital Signs Past 12 Hours Date Time Temp Pulse Resp B/P (MAP) Pulse Ox O2 Delivery O2 Flow Rate FiO2 12/26/16 11:09 36.5 61 22 108/56 (73) 95 BiPAP 12/26/16 10:00 BiPAP 12/26/16 08:04 37.3 74 23 134/67 (89) 96 12/26/16 05:00 BiPAP 60 12/26/16 03:52 37.7 71 22 137/53 (81) 92 CPAP 12/26/16 02:05 70 95 60 The patient is alert and oriented. Mood and affect appeared normal. He answered all questions appropriately. Morbidly obese HEENT: Pupils are equal and reactive to light and accommodation. Extraocular movements are intact. The sclerae are anicteric. Neuro: Cranial nerves intact Neck: Patient's neck is supple. He has palpable carotid pulses bilaterally without bruits on auscultation. There is no evidence of jugular venous distention. The thyroid is not enlarged. Lungs: Lung examination was difficult given his morbid obesity, but there were no rales in the upper airways. No expiratory wheezing. Cardiac: Heart demonstrates a regular rate and rhythm. Normal S1 and S2. No murmurs on examination. Abdomen: Obese, nontender Pulses: The patient has palpable radial pulses bilaterally that are equal in intensity Extremities: There was no evidence of hypoperfusion. There is no cyanosis or clubbing. Moderate bilateral peripheral edema. Skin: He has multiple rashes on his lower extremities. Data Laboratory Results: Last 24 Hours Test 12/25/16 16:13 12/25/16 16:21 12/25/16 20:03 12/26/16 00:33 Troponin I < 0.015 ng/ml < 0.015 ng/ml Bedside Glucose 109 mg/dl 101 mg/dl Test 12/26/16 04:30 12/26/16 05:54 12/26/16 06:07 Influenza Type A (RT-PCR) Neg for Influ A Influenza Type A Antigen Neg for Influ A Influenza Type B Antigen Neg for Influ B Influenza Type B (RT-PCR) Neg for Influ B Bedside Glucose 129 mg/dl White Blood Count 8.60 K/uL Red Blood Count 4.02 M/uL Hemoglobin 11.8 g/dL Hematocrit 38.2 % Mean Corpuscular Volume 95.0 fL Mean Corpuscular Hemoglobin 29.4 pg Mean Corpuscular Hemoglobin Concent 30.9 g/dl RDW Standard Deviation 55.5 fL RDW Coefficient of Variation 16.0 % Platelet Count 181 K/uL Mean Platelet Volume 9.7 fL Prothrombin Time 46.9 SECONDS Prothromb Time International Ratio 4.1 Sodium Level 141 mmol/L Potassium Level 5.2 mmol/L Chloride Level 109 mmol/L Carbon Dioxide Level 29 mmol/L Anion Gap 3.0 mmol/L Blood Urea Nitrogen 36 mg/dl Creatinine 1.96 mg/dl Est Creatinine Clear Calc Drug Dose 71.6 ml/min Estimated GFR () 42.1 Estimated GFR (Non- 36.4 BUN/Creatinine Ratio 18.3 Random Glucose 122 mg/dl Calcium Level 7.9 mg/dl Imaging: Chest x-ray the time of admission demonstrated cardiomegaly an element of pulmonary vascular congestion EKG: Initial EKG demonstrated an unclear atrial rhythm possibly sinus with long 1st degree AV block and a wide QRS. More recent EKG in telemetry demonstrates sinus rhythm with 1st degree AV block and right bundle branch block Echocardiogram performed on December 04 2016 was essentially normal. Preserved LV systolic function. Assessment & Plan 1. Atrial fibrillation: Patient's rhythm upon presentation is most consistent with sinus and perhaps a long first-degree AV block. Telemetry clearly demonstrates sinus rhythm at this time. While the original strategy involved use of flecainide for rhythm control, I think his poor compliance and the EKG changes seen at admission preclude use at this time. It is also unclear whether he is markedly symptomatic from the arrhythmia or simply the associated higher ventricular rates. At this point I think it is reasonable to continue with a rate control strategy and anticoagulation. 2. Flecainide toxicity: EKG on presentation suggests an element of flecainide toxicity. The patient was taking more than prescribed. Not only did he have significant QRS widening but there were some changes in the right precordial leads consistent with significant blockade of sodium channels. This produced a an appearance consistent with Brugada pattern. With a truly has an underlying channelopathy or simply took too much flecainide is unclear. However, I think would be reasonable to refrain from additional use at this time. 3. Congestive heart failure: This is likely diastolic. Whether it is related to poor coordination between the atria and the ventricle seen on EKG, diastolic failure or dietary indiscretion is unclear. Likely combination of all of these. He responded to some diuresis yesterday. I would advocate additional attempts at diuresis. His renal function is slightly worse today but may improve as his cardiac condition and function improves.
[2016-12-26 14:01] LABS: BUN/CREATININE RATIO 17.4 (10-20); CALCIUM 8.2 mg/dl (8.5-10.1); CREATININE 2.13 mg/dl (0.60-1.40); PHOSPHORUS 4.8 mg/dl (2.5-4.9); POTASSIUM 5.3 mmol/L (3.5-5.1)
--- NOTE | 2016-12-26 14:01 | Hospitalist Progress Note ---
Hospitalist Progress Note Date of Service Dec 26, 2016. (Frieda Ramirez CRNP) Subjective Pt evaluation today including: conversation w/ patient, physical exam, chart review, lab review, review of inpatient medication list Voiding: no voiding problems Patient still on bipap, but reports feeling better today. He is not having pain. ROS Constitutional: no chills, aches, sweats or fever Respiratory: no sob,cough, sputum, or wheezing Cardiac: no chest pain, palpitations, edema, orthopnea or lightheadedness GI: no abdominal pain, nausea, vomiting, diarrhea or constipation : no dysuria or hesitancy Extremities: no joint pain or weakness Skin: no rash (Frieda Ramirez CRNP) Medications Medications Administered Medications (Trade) Dose Ordered Sig/Rhea Route Start Time Stop Time Status Last Admin Dose Admin Bumetanide (Bumex Iv) 1 mg NOW STAT IV 12/25/16 08:12 12/25/16 08:16 DC 12/25/16 08:19 1 MG Diltiazem HCl (Dilacor Xr Cap) 120 mg DAILY PO 12/26/16 09:00 01/25/17 08:59 12/26/16 07:57 120 MG Fexofenadine HCl (Anju Tab) 180 mg DAILY PO 12/26/16 09:00 01/25/17 08:59 12/26/16 07:57 180 MG Glimepiride (Amaryl Tab) 2 mg QDB PO 12/26/16 07:30 01/25/17 07:29 12/26/16 07:58 2 MG Metoprolol Tartrate (Lopressor Tab) 50 mg BID PO 12/25/16 21:00 01/24/17 20:59 12/26/16 07:55 50 MG Oxybutynin Chloride (Ditropan Tab) 5 mg BID PO 12/25/16 21:00 01/24/17 20:59 12/26/16 07:53 5 MG Ascorbic Acid (Vitamin C Tab) 500 mg DAILY PO 12/26/16 09:00 01/25/17 08:59 12/26/16 07:54 500 MG Calcium/Vitamin D (Caltrate Plus Tab) 1 tab DAILY PO 12/26/16 09:00 01/25/17 08:59 12/26/16 07:53 1 TAB Pantoprazole Sodium (Protonix Tab) 40 mg QAM PO 12/26/16 09:00 01/25/17 08:59 12/26/16 07:57 40 MG Multivitamins (Flintstones Complete Tab) 1 tab QAM PO 12/26/16 09:00 01/25/17 08:59 12/26/16 07:55 1 TAB Nystatin (Mycostatin Powder) 1 appln BID EXT 12/25/16 21:00 01/24/17 20:59 12/26/16 07:58 1 APPLN Ampicillin Sodium/ Sulbactam Sodium 3000 mg/Sodium Chloride 108 ml @ 200 mls/hr Q6H IV 12/26/16 00:00 01/02/17 00:00 12/26/16 12:18 200 MLS/HR Vancomycin HCl 2000 mg/Sodium Chloride 540 ml @ 200 mls/hr TODAY@0400 ONCE IV 12/26/16 04:00 12/26/16 06:41 DC 12/26/16 04:38 200 MLS/HR Vancomycin HCl 2000 mg/Sodium Chloride 540 ml @ 200 mls/hr NOW STAT IV 12/25/16 22:40 12/26/16 01:21 DC 12/25/16 22:53 200 MLS/HR Furosemide (Lasix Tab) 40 mg 1000 ONCE PO 12/26/16 10:00 12/26/16 10:01 DC 12/26/16 12:17 40 MG (Frieda Ramirez, COLT) Objective Vital Signs Date Time Temp Pulse Resp B/P (MAP) Pulse Ox O2 Delivery O2 Flow Rate FiO2 12/26/16 11:09 36.5 61 22 108/56 (73) 95 BiPAP 12/26/16 10:00 BiPAP 12/26/16 08:04 37.3 74 23 134/67 (89) 96 12/26/16 05:00 BiPAP 60 12/26/16 03:52 37.7 71 22 137/53 (81) 92 CPAP 12/26/16 02:05 70 95 60 12/26/16 00:01 BiPAP 60 12/25/16 23:27 37.3 76 20 122/65 (84) 95 BiPAP 12/25/16 22:26 66 98 60 12/25/16 20:00 97 BiPAP 60 12/25/16 19:34 36.5 69 18 122/67 (85) 97 BiPAP 12/25/16 16:05 36.3 63 21 108/62 (77) 100 BiPAP 12/25/16 16:00 99 BiPAP 60 12/25/16 13:25 63 18 138/72 98 BiPAP 60 12/25/16 12:58 68 98 60 (Frieda Ramirez CRNP) Physical Exam Notes: General: no distress Eyes: normal inspection, PERLL Respiratory: chest non tender, clear to auscultation, normal breath sounds, no respiratory distress, no accessory muscle use Cardiac: regular rate and rhythm, no rub or gallop, no murmur, no edema, no jvd GI/: active bowel sounds, no abd pain or tenderness, soft, non distended Extremities: normal range of motion, normal strength, non tender Neuro/Psych: alert and oriented x 3, normal mood and affect Skin: normal color, dry (Frieda Ramirez CRNP) Laboratory Results Last 24 Hours Test 12/25/16 16:13 12/25/16 16:21 12/25/16 20:03 12/26/16 00:33 Troponin I < 0.015 ng/ml < 0.015 ng/ml Bedside Glucose 109 mg/dl 101 mg/dl Test 12/26/16 04:30 12/26/16 05:54 12/26/16 06:07 Influenza Type A (RT-PCR) Neg for Influ A Influenza Type A Antigen Neg for Influ A Influenza Type B Antigen Neg for Influ B Influenza Type B (RT-PCR) Neg for Influ B Bedside Glucose 129 mg/dl White Blood Count 8.60 K/uL Red Blood Count 4.02 M/uL Hemoglobin 11.8 g/dL Hematocrit 38.2 % Mean Corpuscular Volume 95.0 fL Mean Corpuscular Hemoglobin 29.4 pg Mean Corpuscular Hemoglobin Concent 30.9 g/dl RDW Standard Deviation 55.5 fL RDW Coefficient of Variation 16.0 % Platelet Count 181 K/uL Mean Platelet Volume 9.7 fL Prothrombin Time 46.9 SECONDS Prothromb Time International Ratio 4.1 Sodium Level 141 mmol/L Potassium Level 5.2 mmol/L Chloride Level 109 mmol/L Carbon Dioxide Level 29 mmol/L Anion Gap 3.0 mmol/L Blood Urea Nitrogen 36 mg/dl Creatinine 1.96 mg/dl Est Creatinine Clear Calc Drug Dose 71.6 ml/min Estimated GFR () 42.1 Estimated GFR (Non- 36.4 BUN/Creatinine Ratio 18.3 Random Glucose 122 mg/dl Calcium Level 7.9 mg/dl (Frieda Ramirez ., COLT) Assessment and Plan Mr. Monzon is a 61 year old man presenting today with sob over the weekend. Per his cousin, he was short of breath while out at their family camp with increasing edema and orthopnea He also became very dizzy this morning. He does not wear oxygen at home. Patient was recently here 12/06 for a.fib RVR and cellulitis. He followed up with cardiology on the where his flecainide was increased. PMhx of 2004 gastric bypass with complications leading to [address] [facility], A.fib, cellulitis right leg, diabetes mellitus II, DVT, RBBB, LAFB, GERD, morbid obesity Borderline concentric left ventricular heart failure - admit telemetry - 12/04 LVEF 65-70%, no RWMA - continue diuresis per nephrology aiming for 1L per day - consult cardiology - serial troponins normal - daily weights,strict I&Os Acute respiratory failure/obesity hypoventilation - requiring bipap 60% FiO2, sats are good, titrate off bipap and use only at night. - abg - respiratory acidosis, CO2 75 / - does have bilateral opacities on Xray, likely atelectasis as well as pulmonary edema. As patient is afebrile and has not had a cough, 1/2 cultures with group A strep. At this point the patient has had two doses of antibiotics so recollection of blood cultures may not be helpful. Will cut ampicillin and continue vancomycin - will need sleep study before d/c to qualify for bipap at home, unable to qualify for cpap without sleep study Acute Renal Failure - baseline creatinine appears to be around 1.5, trending back down - consult nephrology Atrial fibrillation - tele monitor - flecainide discontinued per cardiology due to wide complexes on ECG, continue metoprolol and calcium channel blockers - hold warfarin for supratherapeutic INR DMII - continue glimepiride - BSG AC&HS Skin folds excoriation/yeast - nystatin powder - wound care consult Morbid obesity - consult nutrition when more stable GERD - protonix DVT prophylaxis - hold warfarin for now due to supratherapeutic INR Full code (Frieda Ramirez ., COLT) [employer] Physician Supervision Note: I interviewed and examined the patient. Discussed with Frieda Ramirez [employer] and agree with findings and plan as documented in the note. Any exceptions or clarifications are listed here: None This patient continues with severe hypoxic and hypercarbic respiratory distress requiring substantial oxygen supplementation and not tolerating being off BiPAP without having accumulation of carbon dioxide and acidemia his x-ray seemingly shows progression of pulmonary edema despite having a recent echocardiogram with normal ejection fraction. Patient remains in sinus rhythm no more tachyarrhythmia but has minor renal failure requiring cardiology to reduce his flecainide dose. Vital signs show profound hypoxia, blood pressure stable Cardiac exam is regular but distant lungs have coarse crackles in both lung francis and his breath sounds at the bases difficult to hear due to marked obesity lower extremities are with 2+ edema and likely more but he has chronic venous stasis changes Acute hypoxic and hypercarbic respiratory failure so she with age fibrillation rapid ventricular response and acute on chronic renal failure After discussion with Dr. Marquez we'll continue with aggressive diuresis especially since the patient since x-ray has progressed since hypoxia substantial, a consultation with pulmonary medicine is likely in the works for the morning maintaining BiPAP through the night Documented by:Humberto Wilkinson M.D.)
[2016-12-26] MEDS: VANCOMYCIN INJ 2,000 MG in SODIUM CHLORIDE 0.9% 500ML 500 ML IV SCH (16:28)
--- NOTE | 2016-12-26 16:31 | DIAGNOSTIC IMAGING REPORT ---
CHEST ONE VIEW PORTABLE CLINICAL HISTORY: hypoxia dyspnea COMPARISON STUDY: [id number] FINDINGS: Cardiomegaly. Diaphragms smooth. Small right pleural effusion. Findings of pulmonary edema versus congestive heart failure. All major vasculature is prominent. IMPRESSION: Pulmonary edema versus congestive heart failure. The above report was generated using voice recognition software. It may contain grammatical, syntax or spelling errors. Electronically signed by: Tanner Beltran M.D. 12/26/2016 4:30 PM Dictated Date/Time: 12/26/2016 4:30 PM
[2016-12-26 18:04] LABS: ALLEN TEST POS (POS); ARTERIAL BLD GAS O2 SATURATION 93.9 % (90-95); ARTERIAL BLOOD GAS BASE EXCESS 0.7 mEq/L (-9-1.8); ARTERIAL BLOOD GAS HCO3 30 mmol/L (19-24); ARTERIAL BLOOD GAS PO2 80 mm/Hg (80-95); ARTERIAL BLOOD GAS pH 7.21 (7.35-7.45); O2 ADMINISTRATION 60%
[2016-12-26] MEDS ORDERED: FUROSEMIDE INJ 40 MG in SYRINGE 0 ML IV SCH (21:00)
[2016-12-26] MEDS: FUROSEMIDE INJ 80 MG in SYRINGE 0 ML IV SCH (21:20)
[2016-12-26] MEDS: ACETAMINOPHEN 325 MG TAB PO PRN (23:23)
[2016-12-27] VITALS (12 sets, daily range): BP systolic 112–135; BP diastolic 66–89; PULSE 73–95; TEMP 36.7–37; O2SAT 93–96
[2016-12-27] MEDS: VANCOMYCIN INJ 2,000 MG in SODIUM CHLORIDE 0.9% 500ML 500 ML IV SCH (03:44)
[2016-12-27] MEDS ORDERED: FUROSEMIDE 20 MG TAB PO SCH (09:00)
--- NOTE | 2016-12-27 09:13 | Nephrology Progress Note ---
Nephrology Progress Note Date of Service Dec 27, 2016. Chief Complaint Acute renal insufficiency Subjective Hank remains on BIPAP. Per nursing report, he did not tolerate removing PPV to eat. He denies chest pain or palpitations. Fluid balance negative 4.6 L since yesterday. Richardson remains intact. Hank reports back pain this morning. He notes SI pain from sitting in bed. No fevers or chills. Review of Systems A complete review of systems was performed. Pertinent positives are noted above. All other systems are negative. Vital Signs Last 8 Hrs Date Time Temp Pulse Resp B/P (MAP) Pulse Ox O2 Delivery O2 Flow Rate FiO2 12/27/16 07:00 36.9 87 20 135/83 (100) 93 BiPAP 12/27/16 05:28 79 95 40 12/27/16 04:00 BiPAP 2.0 60 12/27/16 03:08 36.8 77 22 112/66 (81) 94 BiPAP 12/27/16 03:00 74 93 40 Last Recorded Weight Weight (Kilograms): 188.100 Physical Exam General Appearance: + mild distress, + obese Head: normocephalic, atraumatic Eyes: normal inspection, sclerae normal ENT: normal ENT inspection, + pertinent finding (BIPAP) Neck: supple, + pertinent finding (thick, unable to apprecaite JVP) Respiratory/Chest: no accessory muscle use, + decreased breath sounds, + rales (scattered) Cardiovascular: + pertinent finding (S1S2 with occassional ectopy, no murmur) Abdomen/GI: + pertinent finding (obese, soft, non tender) Genitourinary - Male: + pertinent finding (Richardson draining clear yellow urine) Extremities/Musculoskelatal: + pertinent finding (Notable pitting BL LE edema, no distal cyanosis) Neurologic/Psych: alert, normal mood/affect Family History FH: coronary artery disease Social History Smoking Status: Never smoker Smokeless Tobacco Use: No Alcohol Use: occasionally Drug Use: none Marital Status: single Housing Status: lives alone 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) Laboratory Results Past 24 Hours 12/26/16 13:10 Test 12/26/16 11:27 12/26/16 13:10 12/26/16 15:36 12/26/16 17:42 Bedside Glucose 158 mg/dl (70-99) 129 mg/dl (70-99) Anion Gap 4.0 mmol/L (3-11) Est Creatinine Clear Calc Drug Dose 65.9 ml/min Estimated GFR () 38.1 Estimated GFR (Non- 32.9 BUN/Creatinine Ratio 17.4 (10-20) Calcium Level 8.2 mg/dl (8.5-10.1) Phosphorus Level 4.8 mg/dl (2.5-4.9) Albumin 2.8 gm/dl (3.4-5.0) Arterial Blood pH 7.21 (7.35-7.45) Arterial Blood Partial Pressure CO2 77 mmHg (35-46) Arterial Blood Partial Pressure O2 80 mm/Hg (80-95) Arterial Blood HCO3 30 mmol/L (19-24) Arterial Blood Oxygen Saturation 93.9 % (90-95) Arterial Blood Base Excess 0.7 mEq/L (-9-1.8) Arterial Blood Gas Delivery 60% Randell Test POS (POS) Test 12/26/16 20:16 12/27/16 04:44 Bedside Glucose 93 mg/dl (70-99) Allergies Coded Allergies: No Known Allergies (Unverified , 12/25/16) Medications Current Inpatient Medications Medications (Trade) Dose Ordered Sig/Rhea Route Start Time Stop Time Status Last Admin Dose Admin Diltiazem HCl (Dilacor Xr Cap) 120 mg DAILY PO 12/26/16 09:00 01/25/17 08:59 12/26/16 07:57 120 MG Fexofenadine HCl (Anju Tab) 180 mg DAILY PO 12/26/16 09:00 01/25/17 08:59 12/26/16 07:57 180 MG Glimepiride (Amaryl Tab) 2 mg QDB PO 12/26/16 07:30 01/25/17 07:29 12/26/16 07:58 2 MG Metoprolol Tartrate (Lopressor Tab) 50 mg BID PO 12/25/16 21:00 01/24/17 20:59 12/26/16 21:20 50 MG Oxybutynin Chloride (Ditropan Tab) 5 mg BID PO 12/25/16 21:00 01/24/17 20:59 12/26/16 21:20 5 MG Ascorbic Acid (Vitamin C Tab) 500 mg DAILY PO 12/26/16 09:00 01/25/17 08:59 12/26/16 07:54 500 MG Calcium/Vitamin D (Caltrate Plus Tab) 1 tab DAILY PO 12/26/16 09:00 01/25/17 08:59 12/26/16 07:53 1 TAB Cyanocobalamin (Vitamin B-12 Inj) 1,000 mcg Q60D@0900 IM 01/18/17 09:00 02/17/17 08:59 Pantoprazole Sodium (Protonix Tab) 40 mg QAM PO 12/26/16 09:00 01/25/17 08:59 12/26/16 07:57 40 MG Multivitamins (Flintstones Complete Tab) 1 tab QAM PO 12/26/16 09:00 01/25/17 08:59 12/26/16 07:55 1 TAB Nystatin (Mycostatin Powder) 1 appln BID EXT 12/25/16 21:00 01/24/17 20:59 12/26/16 22:16 1 APPLN Vancomycin HCl (Consult) 1 ea UD PRN N/A 12/25/16 22:50 01/24/17 22:49 Vancomycin HCl 2000 mg/Sodium Chloride 540 ml @ 200 mls/hr Q12H IV 12/26/16 16:00 01/09/17 15:59 12/27/16 03:44 200 MLS/HR Furosemide 80 mg/ Syringe 8 ml @ 4 mls/min BID IV 12/26/16 21:00 01/25/17 20:59 12/26/16 21:20 4 MLS/MIN Acetaminophen (Tylenol Tab) 650 mg Q4H PRN PO 12/26/16 23:00 01/25/17 22:59 12/26/16 23:23 650 MG Impression (1) Atrial fibrillation (2) Acute renal insufficiency (3) CKD (chronic kidney disease), stage III (4) CHF (congestive heart failure) Mr. Hank Monzon is a morbidly obese 61-year-old male with non- oliguric KINJAL. Metabolic profile notable for mild hyperkalemia. AM labs pending. Good diuresis with furosemide. Richardson remains intact. Medical history notable for recent diagnosis of new atrial fibrillation. Cardiology consult reviewed this morning. Plan of care discussed with Dr. Vela. Urine analysis notable for 10-30 WBC, no RBC, granular casts noted. KINJAL is consistent with ATN and prerenal azotemia. No specific nephrotoxic medications identified. Blood culture 1 of 2 positive for strep. Recommendations -- Loop diuretics to encourage a negative fluid balance. Continue furosemide 40 mg twice daily -- Richardson to gravity -- Maintain scale balancer -- Repeat blood cultures -- Document I/O's -- Monitor metabolic profile twice daily -- If renal dysfunction persists, consider holding glimepiride -- If creatinine does not improve, obtain renal imaging -- Renal diet
[2016-12-27] MEDS ORDERED: MoRPHine SULFATE 2 MG/ML CARP IV PRN (09:45)
[2016-12-27] MEDS ORDERED: ACETAMINOPHEN IV 100 ML IV PRN (09:45)
[2016-12-27] MEDS: CALCIUM 600MG + VIT D 400 IU TAB PO SCH (10:01)
[2016-12-27] MEDS: ASCORBIC ACID 500 MG TAB PO SCH (10:01)
[2016-12-27] MEDS: METOPROLOL TARTRATE 50 MG TAB PO SCH ×2 (10:02→21:09)
[2016-12-27] MEDS: DILTIAZEM HCL 120 MG ER CAP PO SCH (10:02)
[2016-12-27] MEDS: FEXOFENADINE HCL 180 MG TAB PO SCH (10:03)
[2016-12-27] MEDS: FLINTSTONES COMPLETE CHEWABLE TAB PO SCH (10:03)
[2016-12-27] MEDS: OXYBUTYNIN CHLORIDE 5 MG TAB PO SCH ×2 (10:03→21:09)
[2016-12-27] MEDS: PANTOprazole SOD 40 MG TAB PO SCH (10:03)
[2016-12-27] MEDS: GLIMEPIRIDE 2 MG TAB PO SCH (10:04)
[2016-12-27] MEDS: NYSTATIN POWDER 15GM BTL EXT SCH ×2 (10:04→22:03)
[2016-12-27] MEDS: FUROSEMIDE INJ 80 MG in SYRINGE 0 ML IV SCH ×2 (10:05→21:09)
[2016-12-27 10:19] LABS: ARTERIAL BLD GAS O2 SATURATION 94.9 % (90-95); ARTERIAL BLOOD GAS BASE EXCESS 6.4 mEq/L (-9-1.8); ARTERIAL BLOOD GAS HCO3 33 mmol/L (19-24); ARTERIAL BLOOD GAS PO2 79 mm/Hg (80-95); ARTERIAL BLOOD GAS pH 7.38 (7.35-7.45)
[2016-12-27 10:20] LABS: ALLEN TEST POS (POS); O2 ADMINISTRATION 40%
[2016-12-27 10:25] LABS: HEMATOCRIT 37.4 % (42-52); MEAN CELL VOLUME 92.1 fL (80-100); MEAN CORPUSCULAR HEMOGLOBIN 28.1 pg (25-34); MEAN CORPUSCULAR HGB CONC 30.5 g/dl (32-36); MEAN PLATELET VOLUME 9.2 fL (7.4-10.4); PLATELET COUNT 156 K/uL (130-400); RED BLOOD COUNT 4.06 M/uL (4.7-6.1); WHITE BLOOD COUNT 7.73 K/uL (4.8-10.8)
[2016-12-27 10:34] LABS: PROTHROMBIN TIME (PATIENT) 33.6 SECONDS (9.0-12.0)
[2016-12-27 10:52] LABS: CALCIUM 7.8 mg/dl (8.5-10.1); CREATININE 1.81 mg/dl (0.60-1.40); POTASSIUM 4.1 mmol/L (3.5-5.1)
--- NOTE | 2016-12-27 13:47 | Pulmonary Consultation ---
History General Date of Service: Dec 27, 2016. Stated Complaint: Acute Renal Failure, Chf, Hypoxia HPI The patient is a 61 year old male who presents to [facility] with complaints of Acute Renal Failure, Chf, Hypoxia. The patient's primary care provider is Benitez Millan M.D.. Mr. Monzon is a 61-year-old with history of diabetes, morbid obesity BMI 53 status post gastric bypass in 2004, right lower extremity DVT on chronic Coumadin therapy, atrial fibrillation who presented on 2016 with complaints of worsening shortness of breath and dyspnea on exertion. Patient states that he over the last week he has had increased lethargy and fatigue associated with confusion, lower extremity instability and hands tremors. He admits to bilateral lower extremity edema and swelling, orthopnea and paroxysmal nocturnal dyspnea. He is sleeping in recliner as he is no longer able to tolerate lying flat. He denies any chest pain, cough, palpitations or syncope but admits to lightheadedness and dizziness. He denies any falls. He was recently admitted to the hospital on 12/06/2016 and treated for atrial fibrillation with RVR and cellulitis. He was continued on Coumadin and started on diltiazem, metoprolol and flecainide. Echocardiogram in November showed a EF of 65-70% with no regional wall motion abnormalities. Left atrium was markedly dilated. No pulmonary hypertension. He followed up with cardiology as an outpatient on 12/19/2016 where his flecainide was increased. Lower extremity cellulitis was initially treated with ceftriaxone and oral doxycycline. This was transitioned over to Augmentin prior to discharge. In the ER, his initial vital signs were temperature of 36.9, pulse 74, respiratory rate of 28, blood pressure 129/64, pulse oximetry 64% on room air which increased to 97% on nonrebreather mask. He was subsequently placed on BiPAP 60% FiO2 with improvement of O2 saturation 98%. Initial laboratory data was significant for a BUN of 40, creatinine of 2.3, random glucose level of 161 , calcium 8.3, magnesium 2.5. LFTs were within normal limits. Troponin 3 is negative. BNP 940. Albumin 3.2, total protein 7.9. His INR was elevated at 4.2, PTT 46.9. Influenza A and B PCR is negative. EKG was done showing the wide QRS rhythm at 72 bpm with a QTC of about 503. ABG 7.2/75/92/28/95% on BiPAP 14/6, 60% FiO2. Chest x-ray on admission showed cardiomegaly with mild pulmonary edema and trace pleural effusions. He also had bibasilar opacities suggestive of atelectasis versus pneumonia. He was admitted for acute on acute hypoxic hypercapnic respiratory failure, acute on chronic renal failure and supratherapeutic INR. He was given vancomycin IV, ampicillin IV, and Lasix IV. His cumulative balance is about 7 L negative since admission. Vital signs within the last 24 hours show MAXIMUM TEMPERATURE of 37, blood pressure 112/66 total 135/83, blood pressure 124/75, pulse 74-87, respiratory 18 -22, pulse oximetry 93-96% on BiPAP 14/6, sat rate of 10 bpm, 40% FiO2. Repeat ABG this morning shows 7.38/57/79/33/94.9% on BiPAP 14/6, 40% FiO2. At the time of my evaluation patient states that he is feeling much better. Still continues to be on BiPAP. Past Medical History Past Medical History: Diabetes type 2 Gastric bypass for history of morbid obesity RLE DVT on chronic Coumadin Nephrolithiasis and ureteral stents Abscess of buttocks Cellulitis GERD Ischemic colitis Right bundle branch block Vitamin B12 deficiency Past Surgical History: Cholecystectomy Cryoablation of renal mass Gastro bypass Ureteroscopy Lithotripsy Family History FH: coronary artery disease Coronary artery disease Social History He denies any tobacco use, illicit drug use, drinks occasional alcohol. He lives alone. 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 truck [employer]) Immunizations History of Influenza Vaccine: No History of Tetanus Vaccine?: No History of Pneumococcal: No History of Hepatitis B Vaccine: No History of MDRO History of MDRO: Yes Type of MDRO: VRE Allergies Coded Allergies: No Known Allergies (Unverified , 12/25/16) Current Medications Reported Home Medications Medications Dose Route/Sig Max Daily Dose Days Date Category Viactiv (Calcium W/ Vitamins D & K) 1 Chw Chw 1 Tab PO DAILY 12/25/16 Reported Flintstones Plus Iron (Pediatric Multiple Vitamins W/) 1 Chw Chw 1 Tab PO DAILY 12/25/16 Reported Glimepiride 2 Mg Tab 2 Mg PO DAILY 12/25/16 Reported Vitamin D (Cholecalciferol) 400 Unit Tab 400 Units PO DAILY 12/25/16 Reported K-Tabs (Potassium Chloride) 10 Meq Tab 10 Meq PO DAILY 12/25/16 Reported Anju (Fexofenadine Hcl) 180 Mg Tab 180 Mg PO DAILY 12/25/16 Reported Diltiazem Hcl Er (Diltiazem Hcl) 120 Mg Cap 120 Mg PO DAILY 30 12/06/16 Rx Lopressor (Metoprolol Tartrate) 50 Mg Tab 50 Mg PO BID 30 12/06/16 Rx Flecainide Acetate 100 Mg Tab 100 Mg PO Q12 30 12/06/16 Rx Oxybutynin Chloride 5 Mg Tab 5 Mg PO BID 12/03/16 Reported Vitamin C Adult Gummies 125 mg (Ascorbic Acid) 1 Chw Chw 1 Tab PO QAM 03/19/15 Reported Prilosec (Omeprazole) 20 Mg Cap 20 Mg PO QAM 03/19/15 Reported Vitamin B12 (Cyanocobalamin) 3,000 Mcg/Ml Daniel 1,000 Mcg INJ Q2MOS 03/19/15 Reported Warfarin Sodium 7.5 Mg Tab 7.5 Mg PO DAILY 02/22/12 Reported Lasix (Furosemide) 20 Mg Tab 20 Mg PO QAM 02/22/12 Reported Physical Physical Exam Vital Signs: Date Time Temp Pulse Resp B/P (MAP) Pulse Ox O2 Delivery O2 Flow Rate FiO2 12/27/16 11:12 37.0 84 18 124/75 (91) 96 BiPAP 12/27/16 09:30 BiPAP 40 12/27/16 07:00 36.9 87 20 135/83 (100) 93 BiPAP 12/27/16 05:28 79 95 40 12/27/16 04:00 BiPAP 2.0 60 12/27/16 03:08 36.8 77 22 112/66 (81) 94 BiPAP 12/27/16 03:00 74 93 40 12/27/16 00:00 BiPAP 2.0 60 12/26/16 23:34 36.5 65 22 103/76 (85) 94 BiPAP 12/26/16 22:14 67 96 50 12/26/16 20:00 BiPAP 60 12/26/16 19:58 36.4 86 22 120/89 (99) 92 BiPAP 12/26/16 19:07 88 97 60 12/26/16 16:00 92 BiPAP 12/26/16 15:44 36.7 65 24 140/73 (95) 94 Nasal Cannula 15.0 Oxymask 12/26/16 15:31 87 Oxymask 2.0 12/26/16 15:23 36.8 66 26 129/63 (85) 95 Oxymask 2.0 General Appearance: WELL-APPEARING, WD/WN, NO APPARENT DISTRESS, obese Head: NORMOCEPHALIC, ATRAUMATIC Eyes: PERRLA, NO DISCHARGE, EOMI, SCLERAE NORMAL, CONJUNCTIVAE NORMAL ENT: other (on BIPAP) Neck: NORMAL RANGE OF MOTION, NO TENDERNESS, TRACHEA MIDLINE, SUPPLE Respiratory: other (diminshed breath sound bilaterally.) Cardiovasular: NORMAL S1S2 (irregularly, irregular), irregular rate Abdomen: NON TENDER, NORMAL BOWEL SOUNDS, other (a large pannus with erythematous intertriginous areas, large healing abdominal scar in epigastric region.) Genitourinary - Male: other (scrotal edema) Upper Extremities: NO EDEMA, NO DEFORMITY, NORMAL ROM, other (no cyanosis or clubbing) Lower Extremities: other (+3 edema bilaterally, chronic venous changes) Neuro: ALERT, ORIENTED x 3, NORMAL SPEECH Psychiatric: NORMAL AFFECT, NO SUICIDAL IDEATION, CONTRACTS FOR SAFETY Diagnostics Labs Results Past 24 Hours Test 12/26/16 13:10 12/26/16 15:36 12/26/16 17:42 12/26/16 20:16 Range/Units Sodium Level 142 136-145 mmol/L Potassium Level 5.3 3.5-5.1 mmol/L Chloride Level 110 98-107 mmol/L Carbon Dioxide Level 29 21-32 mmol/L Anion Gap 4.0 3-11 mmol/L Blood Urea Nitrogen 37 7-18 mg/dl Creatinine 2.13 0.60-1.40 mg/dl Est Creatinine Clear Calc Drug Dose 65.9 ml/min Estimated GFR () 38.1 Estimated GFR (Non- 32.9 BUN/Creatinine Ratio 17.4 10-20 Random Glucose 135 70-99 mg/dl Calcium Level 8.2 8.5-10.1 mg/dl Phosphorus Level 4.8 2.5-4.9 mg/dl Albumin 2.8 3.4-5.0 gm/dl Bedside Glucose 129 93 70-99 mg/dl Arterial Blood pH 7.21 7.35-7.45 Arterial Blood Partial Pressure CO2 77 35-46 mmHg Arterial Blood Partial Pressure O2 80 80-95 mm/Hg Arterial Blood HCO3 30 19-24 mmol/L Arterial Blood Oxygen Saturation 93.9 90-95 % Arterial Blood Base Excess 0.7 -9-1.8 mEq/L Arterial Blood Gas Delivery 60% Randell Test POS POS Test 12/27/16 10:00 12/27/16 10:06 12/27/16 10:13 Range/Units Bedside Glucose 130 70-99 mg/dl Arterial Blood pH 7.38 7.35-7.45 Arterial Blood Partial Pressure CO2 57 35-46 mmHg Arterial Blood Partial Pressure O2 79 80-95 mm/Hg Arterial Blood HCO3 33 19-24 mmol/L Arterial Blood Oxygen Saturation 94.9 90-95 % Arterial Blood Base Excess 6.4 -9-1.8 mEq/L Arterial Blood Gas Delivery 40% Randell Test POS POS White Blood Count 7.73 4.8-10.8 K/uL Red Blood Count 4.06 4.7-6.1 M/uL Hemoglobin 11.4 14.0-18.0 g/dL Hematocrit 37.4 42-52 % Mean Corpuscular Volume 92.1 80-100 fL Mean Corpuscular Hemoglobin 28.1 25-34 pg Mean Corpuscular Hemoglobin Concent 30.5 32-36 g/dl RDW Standard Deviation 52.7 36.4-46.3 fL RDW Coefficient of Variation 15.7 11.5-14.5 % Platelet Count 156 130-400 K/uL Mean Platelet Volume 9.2 7.4-10.4 fL Prothrombin Time 33.6 9.0-12.0 SECONDS Prothromb Time International Ratio 3.0 0.9-1.1 Sodium Level 143 136-145 mmol/L Potassium Level 4.1 3.5-5.1 mmol/L Chloride Level 107 98-107 mmol/L Carbon Dioxide Level 33 21-32 mmol/L Anion Gap 3.0 3-11 mmol/L Blood Urea Nitrogen 33 7-18 mg/dl Creatinine 1.81 0.60-1.40 mg/dl Est Creatinine Clear Calc Drug Dose 77.4 ml/min Estimated GFR () 46.4 Estimated GFR (Non- 40.0 BUN/Creatinine Ratio 18.0 10-20 Random Glucose 116 70-99 mg/dl Calcium Level 7.8 8.5-10.1 mg/dl Diagnostic Radiology CHEST ONE VIEW PORTABLE 11/26/2016 CLINICAL HISTORY: hypoxia dyspnea COMPARISON STUDY: [id number] FINDINGS: Cardiomegaly. Diaphragms smooth. Small right pleural effusion. Findings of pulmonary edema versus congestive heart failure. All major vasculature is prominent. IMPRESSION: Pulmonary edema versus congestive heart failure. CHEST ONE VIEW PORTABLE 11/25/2016 HISTORY: 61 years-old Male EVALUATE RESPIRATORY DISTRESS.DYSPNEA acute respiratory distress COMPARISON: Chest radiograph 12/03/2016 TECHNIQUE: Portable upright AP view of the chest FINDINGS: Cardiac silhouette is moderately enlarged. Pulmonary vascular congestion is noted in addition to mild background interstitial coarsening. There are hazy patchy bibasilar alveolar opacities present without pneumothorax. Trace bilateral pleural effusions. The bones are grossly intact. IMPRESSION: 1. Cardiomegaly with mild pulmonary edema pattern and trace pleural effusions. 2. Bibasilar opacities suggest atelectasis or less likely pneumonia. BILATERAL LOWER EXTREMITY VENOUS DOPPLER 12/03/2016 CLINICAL HISTORY: Lower extremity swelling. COMPARISON STUDY: Right lower extremity venous Doppler February 22, 2012. TECHNIQUE: Sonography of the deep venous system of the bilateral lower extremities was performed. Compression and augmentation were evaluated. FINDINGS: This exam is compromised by suboptimal penetration. No deep venous thrombus was identified although the right popliteal and bilateral calf veins were not well visualized on this exam. IMPRESSION: Technically compromised exam due to suboptimal penetration but no deep venous thrombus identified within either lower extremity. Impression Assessment and Plan Acute hypoxic respiratory failure Morbid obesity Obstructive sleep apnea Obesity hypoventilation syndrome Atrial fibrillation on anticoagulation Supratherapeutic INR Fluid overload Acute on chronic renal failure Diastolic CHF Diabetes type 2 Mr. Monzon has multiple medical problems who presents with worsening shortness of breath, orthopnea, paroxysmal nocturnal dyspnea and bilateral lower extremity swelling. Patient was recently diagnosed with atrial fibrillation and started on flecainide. On admission found to have Brugada-like pattern on EKG suggestive of flecainide toxicity. He has been attempting to use by mouth dose of Lasix at home without adequate diuresis and increased creatinine. I feel this most likely secondary to diastolic dysfunction and associated congestive heart failure and fluid overload, possibly cor pulmonale. He also has had hypoalbuminemia which may also be contributing. Due to patient's body habitus he is very high risk for obstructive sleep apnea, obesity hypoventilation syndrome and atelectasis which all cause hypoxia. Acute VTE, is possible but unlikely with supratherapeutic INR. On review of his previous chemistries he does not have a significantly elevated CO2 to suggest chronic hypercapnic respiratory failure. Recommendations: Continue with BiPAP settings 14/6, FiO2 40%. Use nasal cannula when necessary to maintain saturations between 88-92%. Recommend sending ammonia level. Await repeat TTE to evaluate for right heart function. Cardiology on board and managing atrial fibrillation, congestive heart failure. Continue with aggressive diuresis as kidney function tolerates. Nephrology on board. Continue with empiric antibiotics for now. Send pro-calcitonin, if negative de- escalate antibiotics. Encourage OT/PT. He should benefit from polysomnography, PFT as outpatient. Weight loss discussed. I appreciate the consult.
--- NOTE | 2016-12-27 14:08 | Hospitalist Progress Note ---
Hospitalist Progress Note Date of Service Dec 27, 2016. (Frieda Ramirez .COLT) Subjective Pt evaluation today including: conversation w/ patient, conversation w/ family , physical exam, chart review, lab review, review of studies, review of inpatient medication list Voiding: kraft catheter in place Per nursing, the patient was on nasal cannula for breakfast and to make a phone call this morning. He became very agitated and told his family member over the phone that he was going to kill himself. Nurse placed his bipap back on. When I saw him, bipap had been back on for about two hours. Patient was alert and oriented but very agitated and felt that he was not being cared for adequately. I spent quite a while explaining his care and he seemed to calm down. I also spoke with his cousin who said that this was not like him to be angry or threatening self harm. ROS Constitutional: no chills, aches, sweats or fever Respiratory: no sob,cough, sputum, or wheezing Cardiac: no chest pain, palpitations, edema, orthopnea or lightheadedness GI: no abdominal pain, nausea, vomiting, diarrhea or constipation : no dysuria or hesitancy Extremities: no joint pain or weakness Skin: no rash (Frieda Ramirez .COLT) Medications Medications Administered Medications (Trade) Dose Ordered Sig/Rhea Route Start Time Stop Time Status Last Admin Dose Admin Bumetanide (Bumex Iv) 1 mg NOW STAT IV 12/25/16 08:12 12/25/16 08:16 DC 12/25/16 08:19 1 MG Diltiazem HCl (Dilacor Xr Cap) 120 mg DAILY PO 12/26/16 09:00 01/25/17 08:59 12/27/16 10:02 120 MG Fexofenadine HCl (Anju Tab) 180 mg DAILY PO 12/26/16 09:00 01/25/17 08:59 12/27/16 10:03 180 MG Glimepiride (Amaryl Tab) 2 mg QDB PO 12/26/16 07:30 01/25/17 07:29 12/27/16 10:04 2 MG Metoprolol Tartrate (Lopressor Tab) 50 mg BID PO 12/25/16 21:00 01/24/17 20:59 12/27/16 10:02 50 MG Oxybutynin Chloride (Ditropan Tab) 5 mg BID PO 12/25/16 21:00 01/24/17 20:59 12/27/16 10:03 5 MG Ascorbic Acid (Vitamin C Tab) 500 mg DAILY PO 12/26/16 09:00 01/25/17 08:59 12/27/16 10:01 500 MG Calcium/Vitamin D (Caltrate Plus Tab) 1 tab DAILY PO 12/26/16 09:00 01/25/17 08:59 12/27/16 10:01 1 TAB Pantoprazole Sodium (Protonix Tab) 40 mg QAM PO 12/26/16 09:00 01/25/17 08:59 12/27/16 10:03 40 MG Multivitamins (Flintstones Complete Tab) 1 tab QAM PO 12/26/16 09:00 01/25/17 08:59 12/27/16 10:03 1 TAB Nystatin (Mycostatin Powder) 1 appln BID EXT 12/25/16 21:00 01/24/17 20:59 12/27/16 10:04 1 APPLN Ampicillin Sodium/ Sulbactam Sodium 3000 mg/Sodium Chloride 108 ml @ 200 mls/hr Q6H IV 12/26/16 00:00 12/26/16 14:00 DC 12/26/16 12:18 200 MLS/HR Vancomycin HCl 2000 mg/Sodium Chloride 540 ml @ 200 mls/hr TODAY@0400 ONCE IV 12/26/16 04:00 12/26/16 06:41 DC 12/26/16 04:38 200 MLS/HR Vancomycin HCl 2000 mg/Sodium Chloride 540 ml @ 200 mls/hr NOW STAT IV 12/25/16 22:40 12/26/16 01:21 DC 12/25/16 22:53 200 MLS/HR Furosemide (Lasix Tab) 40 mg 1000 ONCE PO 12/26/16 10:00 12/26/16 10:01 DC 12/26/16 12:17 40 MG Vancomycin HCl 2000 mg/Sodium Chloride 540 ml @ 200 mls/hr Q12H IV 12/26/16 16:00 01/09/17 15:59 12/27/16 03:44 200 MLS/HR Furosemide 40 mg/ Syringe 4 ml @ 4 mls/min NOW ONCE IV 12/26/16 13:00 12/26/16 13:01 DC 12/26/16 14:19 4 MLS/MIN Furosemide 80 mg/ Syringe 8 ml @ 4 mls/min BID IV 12/26/16 21:00 01/25/17 20:59 12/27/16 10:05 4 MLS/MIN Acetaminophen (Tylenol Tab) 650 mg Q4H PRN PO 12/26/16 23:00 01/25/17 22:59 12/26/16 23:23 650 MG Acetaminophen 100 ml @ 400 mls/hr Q8H PRN IV 12/27/16 09:45 01/03/17 09:44 12/27/16 10:54 400 MLS/HR (Frieda Ramirez CRNP) Objective Vital Signs Date Time Temp Pulse Resp B/P (MAP) Pulse Ox O2 Delivery O2 Flow Rate FiO2 12/27/16 12:30 BiPAP 50 12/27/16 11:12 37.0 84 18 124/75 (91) 96 BiPAP 12/27/16 09:30 BiPAP 40 12/27/16 07:00 36.9 87 20 135/83 (100) 93 BiPAP 12/27/16 05:28 79 95 40 12/27/16 04:00 BiPAP 2.0 60 12/27/16 03:08 36.8 77 22 112/66 (81) 94 BiPAP 12/27/16 03:00 74 93 40 12/27/16 00:00 BiPAP 2.0 60 12/26/16 23:34 36.5 65 22 103/76 (85) 94 BiPAP 12/26/16 22:14 67 96 50 12/26/16 20:00 BiPAP 60 12/26/16 19:58 36.4 86 22 120/89 (99) 92 BiPAP 12/26/16 19:07 88 97 60 12/26/16 16:00 92 BiPAP 12/26/16 15:44 36.7 65 24 140/73 (95) 94 Nasal Cannula 15.0 Oxymask 12/26/16 15:31 87 Oxymask 2.0 12/26/16 15:23 36.8 66 26 129/63 (85) 95 Oxymask 2.0 (Frieda Ramirez CRNP) Physical Exam Notes: General: no distress Eyes: normal inspection, PERLL Respiratory: chest non tender, clear to auscultation, normal breath sounds, no respiratory distress, no accessory muscle use Cardiac: regular rate and rhythm, no rub or gallop, no murmur, +2 pitting lower extremities GI/: active bowel sounds, no abd pain or tenderness, soft, non distended Extremities: normal range of motion, normal strength, non tender Neuro/Psych: alert and oriented x 3, agitated Skin: excoriated skin folds, large scab over scar center of abdomen (Frieda Ramirez CRNP) Laboratory Results Last 24 Hours Test 12/26/16 15:36 12/26/16 17:42 12/26/16 20:16 12/27/16 10:00 Bedside Glucose 129 mg/dl 93 mg/dl 130 mg/dl Arterial Blood pH 7.21 Arterial Blood Partial Pressure CO2 77 mmHg Arterial Blood Partial Pressure O2 80 mm/Hg Arterial Blood HCO3 30 mmol/L Arterial Blood Oxygen Saturation 93.9 % Arterial Blood Base Excess 0.7 mEq/L Arterial Blood Gas Delivery 60% Randell Test POS Test 12/27/16 10:06 12/27/16 10:13 Arterial Blood pH 7.38 Arterial Blood Partial Pressure CO2 57 mmHg Arterial Blood Partial Pressure O2 79 mm/Hg Arterial Blood HCO3 33 mmol/L Arterial Blood Oxygen Saturation 94.9 % Arterial Blood Base Excess 6.4 mEq/L Arterial Blood Gas Delivery 40% Randell Test POS White Blood Count 7.73 K/uL Red Blood Count 4.06 M/uL Hemoglobin 11.4 g/dL Hematocrit 37.4 % Mean Corpuscular Volume 92.1 fL Mean Corpuscular Hemoglobin 28.1 pg Mean Corpuscular Hemoglobin Concent 30.5 g/dl RDW Standard Deviation 52.7 fL RDW Coefficient of Variation 15.7 % Platelet Count 156 K/uL Mean Platelet Volume 9.2 fL Prothrombin Time 33.6 SECONDS Prothromb Time International Ratio 3.0 Sodium Level 143 mmol/L Potassium Level 4.1 mmol/L Chloride Level 107 mmol/L Carbon Dioxide Level 33 mmol/L Anion Gap 3.0 mmol/L Blood Urea Nitrogen 33 mg/dl Creatinine 1.81 mg/dl Est Creatinine Clear Calc Drug Dose 77.4 ml/min Estimated GFR () 46.4 Estimated GFR (Non- 40.0 BUN/Creatinine Ratio 18.0 Random Glucose 116 mg/dl Calcium Level 7.8 mg/dl (Frieda Ramirez CRNP) Assessment and Plan Mr. Monzon is a 61 year old man who presented with sob for a few days as well as increasing edema and orthopnea. Borderline concentric left ventricular heart failure - 12/04 LVEF 65-70%, no RWMA - Chest xray 12/26 showed increasing pulmonary edema - continue diuresis per nephrology aiming for 1L per day - serial troponins normal - daily weights,strict I&Os Acute respiratory failure/obesity hypoventilation - requiring bipap 50% FiO2, patient did not tolerate nasal cannula with increased confusion and desats - abg showed improving CO2 retention, borderline low pO2 - /2 cultures with group A strep, no growth in second vial - vancomycin discontinued - consult pulmonology - will need nocturnal pulse ox before d/c to qualify for bipap at home, unable to qualify for cpap without sleep study Acute Renal Failure - baseline creatinine appears to be around 1.5, improved today from last evening Atrial fibrillation - tele monitor - metoprolol and calcium channel blockers - hold warfarin for supratherapeutic INR - trending back down, no s/s of bleeding DMII - continue glimepiride - BSG AC&HS Skin folds excoriation/yeast - nystatin powder - wound care consult Morbid obesity - consult nutrition when more stable GERD - protonix DVT prophylaxis - hold warfarin for now due to supratherapeutic INR Full code (Frieda Ramirez CRNP) TABLE WORKER Physician Supervision Note: I interviewed and examined the patient. Discussed with Frieda Ramirez TABLE WORKER and agree with findings and plan as documented in the note. Any exceptions or clarifications are listed here: None Patient is marginally better this morning although are still requiring significant BiPAP although diuresing almost 7 L by in's and O's his weight is same overnight his ABG has improved with his hypercarbia reduced with BiPAP. The patient's repeat echo shows preserved EF not quite explaining why it pulmonary edema seen on x-ray. Vital signs show marked hypoxia requiring supplementation blood pressure is stable Cardiac exam is regular and distant lung has coarse rales at the bases and distant massive lower extremity edema with chronic venous stasis changes Right-sided heart failure volume overload likely related to obesity hypoventilation syndrome and sleep apnea. The patient will continue be aggressively diuresed renal oversight pulmonary medicine is also helping us to try to understand the degree of hypoxia in this patient with a preserved ejection fraction continue maximum support to attempt to continue diuresis. Documented By: Humberto Vela (Humberto Vela M.D.)
--- NOTE | 2016-12-27 17:00 | ECHOCARDIOGRAM REPORT ---
*NOTICE TO RECEIVING DEMOCRAT AGENCY This information is strictly Confidential and protected under [place] law. [place] law prohibits you from making any further disclosure of this information unless further disclosure is expressly permitted by the written consent of the person to whom it pertains or is authorized by law. A general authorization for the release of medical or other information is not sufficient for this purpose. Hospital accepts no responsibility if the information is made available to any other person, INCLUDING THE PATIENT. Interpretation Summary * Name: FREDDY MCNEIL Study Date: 12/27/2016 04:04 PM BP: 140/73 mmHg * Patient Location: C.2E\S\E206\S\1 HR: 89 * : 1955 (M/d/yyyy) Gender: Male Height: 74 in * Age: 61 yrs Ethnicity: CA Weight: 416 lb * Ordering Physician: Humberto Vela * Referring Physician: Self, Referred * Performed By: Sneha Vargas RDCS * * Reason For Study: Congestive Heart Failure * BSA: 3.0 m2 * -- Conclusions -- * Limited views were obtained. * There is borderline concentric left ventricular hypertrophy. * Left ventricular systolic function is normal. * Borderline right ventricular enlargement. * The right ventricular systolic function is normal. * Right ventricular systolic pressure is normal. * Compared to study from 12/04/2016, there is no significant change Procedure Details * Limited views were obtained. Left Ventricle * The left ventricle is grossly normal size. * There is borderline concentric left ventricular hypertrophy. * Ejection Fraction = 50-55%. * Left ventricular systolic function is normal. Right Ventricle * Borderline right ventricular enlargement. * The right ventricular systolic function is normal. * The right ventricular systolic function is normal as assessed by tricuspid annular plane systolic excursion (TAPSE) (normal >1.5 cm). Atria * The left atrial size is normal. * Right atrial size is normal. Tricuspid Valve * There is trace tricuspid regurgitation. * Right ventricular systolic pressure is normal. Pericardium/Pleural * There is no pericardial effusion. Great Vessels * Normal inferior vena cava diameter and respiratory variation suggests normal central venous pressure. MMode 2D Measurements and Calculations LVAd ap4 29.8 cm\S\2 LVLd ap4 7.9 cm EDV(MOD-sp4) 98.6 ml EDV(sp4-el) 95.2 ml LVAs ap4 18.9 cm\S\2 LVLs ap4 6.9 cm ESV(MOD-sp4) 46.7 ml ESV(sp4-el) 44.0 ml EF(MOD-sp4) 52.7 % EF(sp4-el) 53.8 % LVAd ap2 20.8 cm\S\2 LVLd ap2 7.6 cm EDV(MOD-sp2) 50.5 ml EDV(sp2-el) 48.6 ml LVAs ap2 14.0 cm\S\2 LVLs ap2 7.1 cm ESV(MOD-sp2) 26.0 ml ESV(sp2-el) 23.4 ml EF(MOD-sp2) 48.5 % EF(sp2-el) 51.9 % LVLd %diff -4.29 % EDV(MOD-bp) 72.7 ml LVLs %diff 3.3 % ESV(MOD-bp) 33.7 ml EF(MOD-bp) 53.7 % SV(MOD-sp4) 51.9 ml SI(MOD-sp4) 17.5 ml/m\S\2 SV(MOD-sp2) 24.5 ml SI(MOD-sp2) 8.3 ml/m\S\2 SV(MOD-bp) 39.0 ml SI(MOD-bp) 13.2 ml/m\S\2 SV(sp4-el) 51.2 ml SI(sp4-el) 17.3 ml/m\S\2 SV(sp2-el) 25.2 ml SI(sp2-el) 8.5 ml/m\S\2 Doppler Measurements and Calculations TR max shannon 162.2 cm/sec
--- NOTE | 2016-12-27 17:04 | Cardiology Follow-Up ---
Subjective Date of Service: Dec 27, 2016. Pt evaluation today including: conversation w/ patient, physical exam, chart review, lab review, review of studies, conversation w/ attending History of Present Illness This morning the patient claims to be feeling well. He denies a sense of dyspnea. He has no symptoms of chest discomfort. He is not aware of any palpitations. He has not ambulated much. He continues to have lower extremity edema. He denies dizziness. Social History Smoking Status: Never Smoker History of Alcohol Use: Yes (2-3 beer every other weekend) Objective Vital Signs Past 12 Hours Date Time Temp Pulse Resp B/P (MAP) Pulse Ox O2 Delivery O2 Flow Rate FiO2 12/27/16 16:22 36.7 77 25 122/73 (89) 96 BiPAP 12/27/16 12:30 BiPAP 50 12/27/16 12:30 73 95 50 12/27/16 11:12 37.0 84 18 124/75 (91) 96 BiPAP 12/27/16 09:30 BiPAP 40 12/27/16 07:00 36.9 87 20 135/83 (100) 93 BiPAP 12/27/16 05:28 79 95 40 Last Recorded Weight-Kilograms: 188.100 Intake & Output 8-Hour Column 12/27/16 12/28/16 12/28/16 16:00 00:00 08:00 Intake Total 400 ml Output Total 3000 ml Balance -2600 ml 24-Hour Column 12/28/16 08:00 Intake Total 400 ml Output Total 3000 ml Balance -2600 ml Physical Exam The patient is alert and oriented. Mood and affect appeared normal. He answered all questions appropriately. Morbidly obese HEENT: Pupils are equal and reactive to light and accommodation. Extraocular movements are intact. The sclerae are anicteric. Neuro: Cranial nerves intact Lungs: Lung apices appear clear. There are no rales appreciated. The upper airway sounds. There is no wheezing. Cardiac: Heart demonstrates a regular rate and rhythm. Normal S1 and S2. No murmurs on examination. Abdomen: Obese, nontender Pulses: The patient has palpable radial pulses bilaterally that are equal in intensity Extremities: There was no evidence of hypoperfusion. There is no cyanosis or clubbing. Moderate bilateral peripheral edema. Skin: He has multiple rashes on his lower extremities. Data Laboratory Results: Last 24 Hours Test 12/26/16 17:42 11/7/17 20:16 12/27/16 10:00 12/27/16 10:06 Arterial Blood pH 7.21 7.38 Arterial Blood Partial Pressure CO2 77 mmHg 57 mmHg Arterial Blood Partial Pressure O2 80 mm/Hg 79 mm/Hg Arterial Blood HCO3 30 mmol/L 33 mmol/L Arterial Blood Oxygen Saturation 93.9 % 94.9 % Arterial Blood Base Excess 0.7 mEq/L 6.4 mEq/L Arterial Blood Gas Delivery 60% 40% Randell Test POS POS Bedside Glucose 93 mg/dl 130 mg/dl Test 12/27/16 10:13 12/27/16 16:45 White Blood Count 7.73 K/uL Red Blood Count 4.06 M/uL Hemoglobin 11.4 g/dL Hematocrit 37.4 % Mean Corpuscular Volume 92.1 fL Mean Corpuscular Hemoglobin 28.1 pg Mean Corpuscular Hemoglobin Concent 30.5 g/dl RDW Standard Deviation 52.7 fL RDW Coefficient of Variation 15.7 % Platelet Count 156 K/uL Mean Platelet Volume 9.2 fL Prothrombin Time 33.6 SECONDS Prothromb Time International Ratio 3.0 Sodium Level 143 mmol/L Potassium Level 4.1 mmol/L Chloride Level 107 mmol/L Carbon Dioxide Level 33 mmol/L Anion Gap 3.0 mmol/L Blood Urea Nitrogen 33 mg/dl Creatinine 1.81 mg/dl Est Creatinine Clear Calc Drug Dose 77.4 ml/min Estimated GFR () 46.4 Estimated GFR (Non- 40.0 BUN/Creatinine Ratio 18.0 Random Glucose 116 mg/dl Calcium Level 7.8 mg/dl Bedside Glucose 81 mg/dl Telemetry reviewed: Sinus rhythm Echocardiogram: Limited echocardiogram was obtained today which revealed preserved LV systolic function. The right ventricle. Borderline dilated the overall function was normal. The estimated pulmonary pressures based on mild tricuspid regurgitation was normal. There is no plethora of the IVC to suggest high right atrial pressure. Assessment and Plan 1. Atrial fibrillation: Currently maintaining sinus rhythm. He stopped the flecainide due to some toxicity from the medication. This point he has tolerated his rate control agents and he can be continued. In the event he has recurrent arrhythmia and symptoms, we could entertain the possibility of alternate antiarrhythmics. 3. Congestive heart failure: He seems to have an element of pulmonary vascular congestion based on his x-rays and laboratory findings. His LV systolic function is preserved. Diastolic function was not well evaluated on his echocardiograms. He has affected a significant diuresis based on output recorded in his chart. At this point I would anticipate seeing a marked improvement in his oxygenation and pulmonary status should this be exclusively related to pulmonary vascular congestion from diastolic dysfunction. However he continues require significant supplemental oxygen and BiPAP. He is not appear to have significant pulmonary hypertension based on his echocardiogram. His right-sided function appears to be reasonably preserved. If there appears to be some confusion regarding the etiology of his hypoxia and continued questions about his filling pressures right heart catheterization could be entertained. At this point would seem reasonable to continue aggressive diuresis he has his renal function appears to be stable.
[2016-12-28] VITALS (11 sets, daily range): BP systolic 113–130; BP diastolic 68–86; PULSE 76–108; TEMP 36.6–36.8; O2SAT 91–99
[2016-12-28] MEDS ORDERED: VANCOMYCIN TROUGH ONE (03:30)
[2016-12-28 06:53] LABS: HEMATOCRIT 38.5 % (42-52); MEAN CELL VOLUME 91.4 fL (80-100); MEAN CORPUSCULAR HEMOGLOBIN 29.5 pg (25-34); MEAN CORPUSCULAR HGB CONC 32.2 g/dl (32-36); MEAN PLATELET VOLUME 9.3 fL (7.4-10.4); PLATELET COUNT 172 K/uL (130-400); RED BLOOD COUNT 4.21 M/uL (4.7-6.1); WHITE BLOOD COUNT 6.82 K/uL (4.8-10.8)
[2016-12-28 07:02] LABS: INR 2.2 (0.9-1.1); PROTHROMBIN TIME (PATIENT) 24.7 SECONDS (9.0-12.0)
[2016-12-28] MEDS: METOPROLOL TARTRATE 50 MG TAB PO SCH ×2 (07:38→21:04)
[2016-12-28] MEDS: NYSTATIN POWDER 15GM BTL EXT SCH ×2 (07:38→21:05)
[2016-12-28 07:39] LABS: BUN/CREATININE RATIO 19.3 (10-20); CALCIUM 8.6 mg/dl (8.5-10.1); CREATININE 1.59 mg/dl (0.60-1.40); POTASSIUM 3.7 mmol/L (3.5-5.1)
[2016-12-28] MEDS: FEXOFENADINE HCL 180 MG TAB PO SCH (07:39)
[2016-12-28] MEDS: ASCORBIC ACID 500 MG TAB PO SCH (07:39)
[2016-12-28] MEDS: OXYBUTYNIN CHLORIDE 5 MG TAB PO SCH ×2 (07:39→21:05)
[2016-12-28] MEDS: PANTOprazole SOD 40 MG TAB PO SCH (07:39)
[2016-12-28] MEDS: GLIMEPIRIDE 2 MG TAB PO SCH (07:39)
[2016-12-28] MEDS: CALCIUM 600MG + VIT D 400 IU TAB PO SCH (07:39)
[2016-12-28] MEDS: FLINTSTONES COMPLETE CHEWABLE TAB PO SCH (07:39)
[2016-12-28] MEDS: DILTIAZEM HCL 120 MG ER CAP PO SCH (07:39)
--- NOTE | 2016-12-28 09:06 | Nephrology Progress Note ---
Nephrology Progress Note Date of Service Dec 28, 2016. Chief Complaint Acute renal insufficiency Subjective No acute events overnight. Remains on BIPAP. Hank states that he feels better overall. He notes better fine motor control. He was able to text on his phone this morning which is something he had been struggling with. He hopes to get out of bed today. He denies chest pain or palpitations. Richardson intact draining clear yellow urine. Edema receding. Review of Systems A complete review of systems was performed. Pertinent positives are noted above. All other systems are negative. Vital Signs Last 8 Hrs Date Time Temp Pulse Resp B/P (MAP) Pulse Ox O2 Delivery O2 Flow Rate FiO2 12/28/16 08:17 36.8 108 16 127/82 (97) 94 BiPAP 12/28/16 08:00 85 99 40 12/28/16 05:46 76 95 40 12/28/16 04:02 BiPAP 12/28/16 03:55 36.6 82 16 120/68 (85) 96 CPAP 40 12/28/16 02:25 94 96 40 Last Recorded Weight Weight (Kilograms): 177.000 Physical Exam General Appearance: no apparent distress, + obese Head: normocephalic, atraumatic Eyes: normal inspection, sclerae normal ENT: normal ENT inspection, + pertinent finding (BIPAP) Neck: + pertinent finding (thick, unable to apprecaite JVP) Respiratory/Chest: no respiratory distress, no accessory muscle use, + decreased breath sounds Cardiovascular: regular rate, rhythm (occasional ectopy), no murmur Abdomen/GI: non tender, soft, + pertinent finding (obese) Genitourinary - Male: + pertinent finding (Richardson draining clear yellow urine) Extremities/Musculoskelatal: + pedal edema (+3 pitting BL LE edema) Neurologic/Psych: alert, normal mood/affect Family History FH: coronary artery disease Social History Smoking Status: Never smoker Smokeless Tobacco Use: No Alcohol Use: occasionally Drug Use: none Marital Status: single Housing Status: lives alone 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1 fL (80-100) Mean Corpuscular Hemoglobin 28.1 pg (25-34) Mean Corpuscular Hemoglobin Concent 30.5 g/dl (32-36) RDW Standard Deviation 52.7 fL (36.4-46.3) RDW Coefficient of Variation 15.7 % (11.5-14.5) Mean Platelet Volume 9.2 fL (7.4-10.4) Prothrombin Time 33.6 SECONDS (9.0-12.0) Prothromb Time International Ratio 3.0 (0.9-1.1) Anion Gap 3.0 mmol/L (3-11) Est Creatinine Clear Calc Drug Dose 77.4 ml/min Estimated GFR () 46.4 Estimated GFR (Non- 40.0 BUN/Creatinine Ratio 18.0 (10-20) Calcium Level 7.8 mg/dl (8.5-10.1) Test 12/27/16 20:25 12/28/16 06:38 12/28/16 06:44 12/28/16 07:02 Bedside Glucose 88 mg/dl (70-99) 104 mg/dl (70-99) Red Blood Count 4.21 M/uL (4.7-6.1) Mean Corpuscular Volume 91.4 fL (80-100) Mean Corpuscular Hemoglobin 29.5 pg (25-34) Mean Corpuscular Hemoglobin Concent 32.2 g/dl (32-36) RDW Standard Deviation 51.0 fL (36.4-46.3) RDW Coefficient of Variation 15.4 % (11.5-14.5) Mean Platelet Volume 9.3 fL (7.4-10.4) Prothrombin Time 24.7 SECONDS (9.0-12.0) Prothromb Time International Ratio 2.2 (0.9-1.1) Anion Gap 6.0 mmol/L (3-11) Est Creatinine Clear Calc Drug Dose 85.0 ml/min Estimated GFR () 54.3 Estimated GFR (Non- 46.8 BUN/Creatinine Ratio 19.3 (10-20) Calcium Level 8.6 mg/dl (8.5-10.1) Ammonia 28.0 umol/L (11-32) Allergies Coded Allergies: No Known Allergies (Unverified , 12/25/16) Medications Current Inpatient Medications Medications (Trade) Dose Ordered Sig/Rhea Route Start Time Stop Time Status Last Admin Dose Admin Diltiazem HCl (Dilacor Xr Cap) 120 mg DAILY PO 12/26/16 09:00 01/25/17 08:59 12/28/16 07:39 120 MG Fexofenadine HCl (Anju Tab) 180 mg DAILY PO 12/26/16 09:00 01/25/17 08:59 12/28/16 07:39 180 MG Glimepiride (Amaryl Tab) 2 mg QDB PO 12/26/16 07:30 01/25/17 07:29 12/28/16 07:39 2 MG Metoprolol Tartrate (Lopressor Tab) 50 mg BID PO 12/25/16 21:00 01/24/17 20:59 12/28/16 07:38 50 MG Oxybutynin Chloride (Ditropan Tab) 5 mg BID PO 12/25/16 21:00 01/24/17 20:59 12/28/16 07:39 5 MG Ascorbic Acid (Vitamin C Tab) 500 mg DAILY PO 12/26/16 09:00 01/25/17 08:59 12/28/16 07:39 500 MG Calcium/Vitamin D (Caltrate Plus Tab) 1 tab DAILY PO 12/26/16 09:00 01/25/17 08:59 12/28/16 07:39 1 TAB Cyanocobalamin (Vitamin B-12 Inj) 1,000 mcg Q60D@0900 IM 01/18/17 09:00 02/17/17 08:59 Pantoprazole Sodium (Protonix Tab) 40 mg QAM PO 12/26/16 09:00 01/25/17 08:59 12/28/16 07:39 40 MG Multivitamins (Flintstones Complete Tab) 1 tab QAM PO 12/26/16 09:00 01/25/17 08:59 12/28/16 07:39 1 TAB Nystatin (Mycostatin Powder) 1 appln BID EXT 12/25/16 21:00 01/24/17 20:59 12/28/16 07:38 1 APPLN Furosemide 80 mg/ Syringe 8 ml @ 4 mls/min BID IV 12/26/16 21:00 01/25/17 20:59 12/27/16 21:09 4 MLS/MIN Acetaminophen (Tylenol Tab) 650 mg Q4H PRN PO 12/26/16 23:00 01/25/17 22:59 12/26/16 23:23 650 MG Morphine Sulfate (MoRPHine SULFATE INJ) 2 mg Q4H PRN IV 12/27/16 09:45 01/10/17 09:44 12/27/16 17:38 2 MG Acetaminophen 100 ml @ 400 mls/hr Q8H PRN IV 12/27/16 09:45 01/03/17 09:44 12/27/16 10:54 400 MLS/HR Warfarin Sodium (Coumadin Tab) 5 mg DAILY@16 PO 12/28/16 16:00 01/27/17 15:59 Impression (1) Atrial fibrillation (2) Acute renal insufficiency (3) CKD (chronic kidney disease), stage III (4) CHF (congestive heart failure) Mr. Hank Monzon is a morbidly obese 61-year-old male with non- oliguric KINJAL. KINJAL consistent with cardiorenal syndrome in the setting of right heart failure. Good diuresis with furosemide. Richardson remains intact. Medical history notable for recent diagnosis of new atrial fibrillation. Converted with flecainide. Urine analysis notable for 10-30 WBC, no RBC, granular casts noted. KINJAL is consistent with ATN and prerenal azotemia. No specific nephrotoxic medications identified. Blood culture 1 of 2 positive for strep. Recommendations -- Loop diuretics to encourage a negative fluid balance. Currently furosemide 80 mg BID -- Richardson to gravity. Hank would prefer to leave Richardson intact until he is able to transfer and sit upright. He reports concerns with urinary retention and incontinence when in bed in the past. -- Repeat blood culture with next blood draw -- Document I/O's -- Monitor metabolic profile daily -- Renal diet
[2016-12-28] MEDS: FUROSEMIDE INJ 80 MG in SYRINGE 0 ML IV SCH ×2 (10:04→21:05)
--- NOTE | 2016-12-28 13:24 | Hospitalist Progress Note ---
Hospitalist Progress Note Date of Service Dec 28, 2016. (Frieda Ramirez CRNP) Subjective Pt evaluation today including: conversation w/ patient, physical exam, chart review, lab review, review of studies, conversation w/ baby registry sales consultant, review of inpatient medication list Voiding: kraft catheter in place Mr. Monzon feels better today. Nursing notes he did have another episode of confusion over night, this morning he appears at his normal mentation. He was able to eat breakfast with 5L NC and maintains his sats in the mid 90s. ROS Constitutional: no chills, aches, sweats or fever Respiratory: no sob,cough, sputum, or wheezing Cardiac: no chest pain, palpitations, edema, orthopnea or lightheadedness GI: no abdominal pain, nausea, vomiting, diarrhea or constipation : no dysuria or hesitancy Extremities: no joint pain or weakness Skin: no rash (Frieda Ramirez CRNP) Medications Medications Administered Medications (Trade) Dose Ordered Sig/Rhea Route Start Time Stop Time Status Last Admin Dose Admin Bumetanide (Bumex Iv) 1 mg NOW STAT IV 12/25/16 08:12 12/25/16 08:16 DC 12/25/16 08:19 1 MG Diltiazem HCl (Dilacor Xr Cap) 120 mg DAILY PO 12/26/16 09:00 01/25/17 08:59 12/28/16 07:39 120 MG Fexofenadine HCl (Anju Tab) 180 mg DAILY PO 12/26/16 09:00 01/25/17 08:59 12/28/16 07:39 180 MG Glimepiride (Amaryl Tab) 2 mg QDB PO 12/26/16 07:30 01/25/17 07:29 12/28/16 07:39 2 MG Metoprolol Tartrate (Lopressor Tab) 50 mg BID PO 12/25/16 21:00 01/24/17 20:59 12/28/16 07:38 50 MG Oxybutynin Chloride (Ditropan Tab) 5 mg BID PO 12/25/16 21:00 01/24/17 20:59 12/28/16 07:39 5 MG Ascorbic Acid (Vitamin C Tab) 500 mg DAILY PO 12/26/16 09:00 01/25/17 08:59 12/28/16 07:39 500 MG Calcium/Vitamin D (Caltrate Plus Tab) 1 tab DAILY PO 12/26/16 09:00 01/25/17 08:59 12/28/16 07:39 1 TAB Pantoprazole Sodium (Protonix Tab) 40 mg QAM PO 12/26/16 09:00 01/25/17 08:59 12/28/16 07:39 40 MG Multivitamins (Flintstones Complete Tab) 1 tab QAM PO 12/26/16 09:00 01/25/17 08:59 12/28/16 07:39 1 TAB Nystatin (Mycostatin Powder) 1 appln BID EXT 12/25/16 21:00 01/24/17 20:59 12/28/16 07:38 1 APPLN Ampicillin Sodium/ Sulbactam Sodium 3000 mg/Sodium Chloride 108 ml @ 200 mls/hr Q6H IV 12/26/16 00:00 12/26/16 14:00 DC 12/26/16 12:18 200 MLS/HR Vancomycin HCl 2000 mg/Sodium Chloride 540 ml @ 200 mls/hr TODAY@0400 ONCE IV 12/26/16 04:00 12/26/16 06:41 DC 12/26/16 04:38 200 MLS/HR Vancomycin HCl 2000 mg/Sodium Chloride 540 ml @ 200 mls/hr NOW STAT IV 12/25/16 22:40 12/26/16 01:21 DC 12/25/16 22:53 200 MLS/HR Furosemide (Lasix Tab) 40 mg 1000 ONCE PO 12/26/16 10:00 12/26/16 10:01 DC 12/26/16 12:17 40 MG Vancomycin HCl 2000 mg/Sodium Chloride 540 ml @ 200 mls/hr Q12H IV 12/26/16 16:00 12/27/16 14:02 DC 12/27/16 03:44 200 MLS/HR Furosemide 40 mg/ Syringe 4 ml @ 4 mls/min NOW ONCE IV 12/26/16 13:00 12/26/16 13:01 DC 12/26/16 14:19 4 MLS/MIN Furosemide 80 mg/ Syringe 8 ml @ 4 mls/min BID IV 12/26/16 21:00 01/25/17 20:59 12/28/16 10:04 4 MLS/MIN Acetaminophen (Tylenol Tab) 650 mg Q4H PRN PO 12/26/16 23:00 01/25/17 22:59 12/26/16 23:23 650 MG Morphine Sulfate (MoRPHine SULFATE INJ) 2 mg Q4H PRN IV 12/27/16 09:45 01/10/17 09:44 12/27/16 17:38 2 MG Acetaminophen 100 ml @ 400 mls/hr Q8H PRN IV 12/27/16 09:45 01/03/17 09:44 12/27/16 10:54 400 MLS/HR (Frieda Ramirez CRNP) Objective Vital Signs Date Time Temp Pulse Resp B/P (MAP) Pulse Ox O2 Delivery O2 Flow Rate FiO2 12/28/16 11:28 36.7 80 20 130/86 (101) 94 5.0 12/28/16 08:17 36.8 108 16 127/82 (97) 94 BiPAP 12/28/16 08:00 85 99 40 12/28/16 08:00 BiPAP 12/28/16 05:46 76 95 40 12/28/16 04:02 BiPAP 12/28/16 03:55 36.6 82 16 120/68 (85) 96 CPAP 40 12/28/16 02:25 94 96 40 12/28/16 00:02 BiPAP 12/27/16 23:25 36.8 95 26 118/78 (91) 93 BiPAP 40 12/27/16 22:50 74 96 40 12/27/16 21:44 84 96 50 12/27/16 20:01 BiPAP 12/27/16 19:04 76 95 50 12/27/16 18:48 36.9 87 20 113/89 (97) 96 BiPAP 12/27/16 16:22 36.7 77 25 122/73 (89) 96 BiPAP 12/27/16 12:30 BiPAP 50 12/27/16 12:30 73 95 50 (Frieda Ramriez CRNP) Physical Exam Notes: Medications Administered Medications (Trade) Dose Ordered Sig/Rhea Route Start Time Stop Time Status Last Admin Dose Admin Bumetanide (Bumex Iv) 1 mg NOW STAT IV 12/25/16 08:12 12/25/16 08:16 DC 12/25/16 08:19 1 MG Diltiazem HCl (Dilacor Xr Cap) 120 mg DAILY PO 12/26/16 09:00 01/25/17 08:59 12/28/16 07:39 120 MG Fexofenadine HCl (Anju Tab) 180 mg DAILY PO 12/26/16 09:00 01/25/17 08:59 12/28/16 07:39 180 MG Glimepiride (Amaryl Tab) 2 mg QDB PO 12/26/16 07:30 01/25/17 07:29 12/28/16 07:39 2 MG Metoprolol Tartrate (Lopressor Tab) 50 mg BID PO 12/25/16 21:00 01/24/17 20:59 12/28/16 07:38 50 MG Oxybutynin Chloride (Ditropan Tab) 5 mg BID PO 12/25/16 21:00 01/24/17 20:59 12/28/16 07:39 5 MG Ascorbic Acid (Vitamin C Tab) 500 mg DAILY PO 12/26/16 09:00 01/25/17 08:59 12/28/16 07:39 500 MG Calcium/Vitamin D (Caltrate Plus Tab) 1 tab DAILY PO 12/26/16 09:00 01/25/17 08:59 12/28/16 07:39 1 TAB Pantoprazole Sodium (Protonix Tab) 40 mg QAM PO 12/26/16 09:00 01/25/17 08:59 12/28/16 07:39 40 MG Multivitamins (Flintstones Complete Tab) 1 tab QAM PO 12/26/16 09:00 01/25/17 08:59 12/28/16 07:39 1 TAB Nystatin (Mycostatin Powder) 1 appln BID EXT 12/25/16 21:00 01/24/17 20:59 12/28/16 07:38 1 APPLN Ampicillin Sodium/ Sulbactam Sodium 3000 mg/Sodium Chloride 108 ml @ 200 mls/hr Q6H IV 12/26/16 00:00 12/26/16 14:00 DC 12/26/16 12:18 200 MLS/HR Vancomycin HCl 2000 mg/Sodium Chloride 540 ml @ 200 mls/hr TODAY@0400 ONCE IV 12/26/16 04:00 12/26/16 06:41 DC 12/26/16 04:38 200 MLS/HR Vancomycin HCl 2000 mg/Sodium Chloride 540 ml @ 200 mls/hr NOW STAT IV 12/25/16 22:40 12/26/16 01:21 DC 12/25/16 22:53 200 MLS/HR Furosemide (Lasix Tab) 40 mg 1000 ONCE PO 12/26/16 10:00 12/26/16 10:01 DC 12/26/16 12:17 40 MG Vancomycin HCl 2000 mg/Sodium Chloride 540 ml @ 200 mls/hr Q12H IV 12/26/16 16:00 12/27/16 14:02 DC 12/27/16 03:44 200 MLS/HR Furosemide 40 mg/ Syringe 4 ml @ 4 mls/min NOW ONCE IV 12/26/16 13:00 12/26/16 13:01 DC 12/26/16 14:19 4 MLS/MIN Furosemide 80 mg/ Syringe 8 ml @ 4 mls/min BID IV 12/26/16 21:00 01/25/17 20:59 12/28/16 10:04 4 MLS/MIN Acetaminophen (Tylenol Tab) 650 mg Q4H PRN PO 12/26/16 23:00 01/25/17 22:59 12/26/16 23:23 650 MG Morphine Sulfate (MoRPHine SULFATE INJ) 2 mg Q4H PRN IV 12/27/16 09:45 01/10/17 09:44 12/27/16 17:38 2 MG Acetaminophen 100 ml @ 400 mls/hr Q8H PRN IV 12/27/16 09:45 01/03/17 09:44 12/27/16 10:54 400 MLS/HR General: no distress Eyes: normal inspection, PERLL Respiratory: chest non tender, diminished sounds, no respiratory distress, no accessory muscle use Cardiac: regular rate and rhythm, no rub or gallop, no murmur, no edema, no jvd GI/: active bowel sounds, no abd pain or tenderness, soft, non distended Extremities: normal range of motion, normal strength, non tender Neuro/Psych: alert and oriented x 3, normal mood and affect Skin: normal color, dry (Frieda Ramirez, COLT) Laboratory Results Last 24 Hours Test 12/27/16 16:45 12/27/16 20:25 12/28/16 06:38 12/28/16 06:44 Bedside Glucose 81 mg/dl 88 mg/dl White Blood Count 6.82 K/uL Red Blood Count 4.21 M/uL Hemoglobin 12.4 g/dL Hematocrit 38.5 % Mean Corpuscular Volume 91.4 fL Mean Corpuscular Hemoglobin 29.5 pg Mean Corpuscular Hemoglobin Concent 32.2 g/dl RDW Standard Deviation 51.0 fL RDW Coefficient of Variation 15.4 % Platelet Count 172 K/uL Mean Platelet Volume 9.3 fL Prothrombin Time 24.7 SECONDS Prothromb Time International Ratio 2.2 Sodium Level 144 mmol/L Potassium Level 3.7 mmol/L Chloride Level 103 mmol/L Carbon Dioxide Level 35 mmol/L Anion Gap 6.0 mmol/L Blood Urea Nitrogen 31 mg/dl Creatinine 1.59 mg/dl Est Creatinine Clear Calc Drug Dose 85.0 ml/min Estimated GFR () 54.3 Estimated GFR (Non- 46.8 BUN/Creatinine Ratio 19.3 Random Glucose 95 mg/dl Calcium Level 8.6 mg/dl Ammonia 28.0 umol/L Test 12/28/16 07:02 Bedside Glucose 104 mg/dl (Frieda Ramirez ., COLT) Assessment and Plan Mr. Monzon is a 61 year old man who presented with sob for a few days as well as increasing edema and orthopnea. 12/28 He was requiring 12L when off bipap and 60 % FiO2 on bipap. Today his oxygen requirements have improved, needing 5L NC. Borderline concentric left ventricular heart failure, ?right diastolic failure - Echo - borderline concentric left ventricular hypertrophy, left and right ventricular systolic function is normal. - initially, cxr showed showed increasing pulmonary edema - patient is diuresing well, almost 15 liters negative - serial troponins normal - daily weights,strict I&Os - per cardiology, right cath should be considered if we are no longer able to diurese due to kidney function and fluid balance has not been optimized. Acute respiratory failure/obesity hypoventilation - tolerating nasal cannula - abg 12/28 showed improving CO2 retention - 1/2 cultures with group A strep, no growth in second vial - vancomycin discontinued, repeat draw tomorrow am - consulted pulmonology - will need nocturnal pulse ox and abg before d/c to qualify for bipap at home, unable to qualify for cpap without sleep study Acute Renal Failure - baseline creatinine appears to be around 1.5,creatinine improving Atrial fibrillation - patient back in atrial fibrillation, rate controlled - tele monitor - metoprolol and calcium channel blockers - warfarin restarted as INR has normalized DMII - continue glimepiride - BSG AC&HS Skin folds excoriation/yeast - continue nystatin powder - wound care consult Morbid obesity - consult nutrition when more stable GERD - protonix coumadin Full code (Frieda Ramirez ., COLT) DATABASE ADMINISTRATION MANAGER Physician Supervision Note: I interviewed and examined the patient. Discussed with Frieda Ramirez DATABASE ADMINISTRATION MANAGER and agree with findings and plan as documented in the note. Any exceptions or clarifications are listed here: None Patient is in mild improvement today with decreased oxygen requirements diuresis continues with renal oversight still concern for the degree of hypoxia and he is achieving having no significant left heart systolic dysfunction. Cardiology and pulmonology are assisting in his care Vital signs show a significant steady negative fluid balance and weight loss with improved hypoxia although still requiring substantial supplementation Cardiac exam is distant regular lungs are coarse breath of the bases no regional air movement abdomen is with bilateral abdominal hernias and a poorly healing eschar in the center of his abdomen he has marked venous stasis and giant swelling of his lower extremities Hypoxic and hypercarbic respiratory failure, obesity hypoventilation syndrome, possibly underlying obstructive lung disease, atrial fibrillation with controlled ventricular rate and coagulopathy present on admission. These multiple problems are being attended to with diuresis and negative fluid balance holding his Coumadin with now achieving reasonable INR and tolerating rate control of her rhythm control for his atrial fibrillation flecainide the patient still requires substantial oxygen supplementation Documented By: Humberto Vela (Humberto Vela M.D.)
--- NOTE | 2016-12-28 13:27 | Cardiology Follow-Up ---
Subjective Date of Service: Dec 28, 2016. Pt evaluation today including: conversation w/ patient, physical exam, chart review, lab review, review of studies, conversation w/ attending History of Present Illness Patient claims to be feeling somewhat better this morning. He has had minimal ambulation around his room and has been up to the bedside commode. He denies shortness of breath but freely admits he has not tried breathing without BiPAP. He denies pain. He has not noticed any significant improvement his lower extremity edema. He denies any sense of palpitations. He denies any dizziness. Social History Smoking Status: Never Smoker History of Alcohol Use: Yes (2-3 beer every other weekend) Objective Vital Signs Past 12 Hours Date Time Temp Pulse Resp B/P (MAP) Pulse Ox O2 Delivery O2 Flow Rate FiO2 12/28/16 12:00 Nasal Cannula 4.0 12/28/16 11:28 36.7 80 20 130/86 (101) 94 5.0 12/28/16 08: 36.8 108 16 127/82 (97) 94 BiPAP 12/28/16 08:00 85 99 40 12/28/16 08:00 BiPAP 12/28/16 05:46 76 95 40 12/28/16 04:02 BiPAP 12/28/16 03:55 36.6 82 16 120/68 (85) 96 CPAP 40 12/28/16 02:25 94 96 40 Last Recorded Weight-Kilograms: 177.000 Physical Exam The patient is alert and oriented. Mood and affect appeared normal. He answered all questions appropriately. Morbidly obese HEENT: Pupils are equal and reactive to light and accommodation. Extraocular movements are intact. The sclerae are anicteric. Neuro: Cranial nerves intact Lungs: Lung apices appear clear. There are no rales appreciated. The upper airway sounds. There is no wheezing. Cardiac: Heart demonstrates an irregular rate and rhythm. Normal S1 and S2. No murmurs on examination. Abdomen: Obese, nontender Pulses: The patient has palpable radial pulses bilaterally that are equal in intensity Extremities: There was no evidence of hypoperfusion. There is no cyanosis or clubbing. Moderate bilateral peripheral edema. Skin: He has multiple rashes on his lower extremities. Data Laboratory Results: Last 24 Hours Test 12/27/16 16:45 12/27/16 20:25 12/28/16 06:38 12/28/16 06:44 Bedside Glucose 81 mg/dl 88 mg/dl White Blood Count 6.82 K/uL Red Blood Count 4.21 M/uL Hemoglobin 12.4 g/dL Hematocrit 38.5 % Mean Corpuscular Volume 91.4 fL Mean Corpuscular Hemoglobin 29.5 pg Mean Corpuscular Hemoglobin Concent 32.2 g/dl RDW Standard Deviation 51.0 fL RDW Coefficient of Variation 15.4 % Platelet Count 172 K/uL Mean Platelet Volume 9.3 fL Prothrombin Time 24.7 SECONDS Prothromb Time International Ratio 2.2 Sodium Level 144 mmol/L Potassium Level 3.7 mmol/L Chloride Level 103 mmol/L Carbon Dioxide Level 35 mmol/L Anion Gap 6.0 mmol/L Blood Urea Nitrogen 31 mg/dl Creatinine 1.59 mg/dl Est Creatinine Clear Calc Drug Dose 85.0 ml/min Estimated GFR () 54.3 Estimated GFR (Non- 46.8 BUN/Creatinine Ratio 19.3 Random Glucose 95 mg/dl Calcium Level 8.6 mg/dl Ammonia 28.0 umol/L Test 12/28/16 07:02 Bedside Glucose 104 mg/dl Telemetry reviewed: Currently in atrial fibrillation Assessment and Plan 1. Atrial fibrillation: Patient converted to atrial fibrillation. He has no symptoms related to the arrhythmia. He is not aware of any palpitations. He has good rate control on his current regimen of metoprolol and diltiazem. This point I think it is reasonable to continue a rate control strategy. The toxicity seen with flecainide makes an additional rhythm control less attractive. Additionally, if he has few symptoms associated with the arrhythmia and we are able to affect good rate control I am not sure there is any significant benefit to maintaining sinus rhythm. He will continue on warfarin indefinitely. 2. Hypoxia: This is likely multifactorial. While the patient likely had an element of pulmonary vascular congestion at the time of admission, he has affected an aggressive and fairly dramatic diuresis over the past few days. His LV systolic function is normal and why he may have an element of diastolic dysfunction, he was in sinus rhythm at the time of admission. I think if his hypoxia was exclusively related to pulmonary vascular congestion we would have seen some significant improvement or perhaps resolution by this point. His echocardiogram also did not suggest elevated pulmonary pressures based on the velocity of the tricuspid regurgitation. He seems to have preserved RV systolic function. He has had some improvement in his hypoxia over the past 24 hours. I would agree with continued diuresis as he does have an element of volume overload although not necessarily pulmonary congestion. His renal function appears to be improving. If there is some concern regarding continued diastolic heart failure and persistent hypoxia in the setting of worsening renal function or inability to continue diuresis, right heart catheterization could be entertained.
--- NOTE | 2016-12-28 15:43 | Pulmonology Progress Note ---
Pulmonary Progress Note Date of Service Dec 28, 2016. Attending Dr. Richardson Subjective Patient is a 61-year-old morbidly obese male multiple medical problems including acute hypoxic respiratory failure, morbidly obesity, obstructive sleep apnea, obesity hypoventilation syndrome, and atrial fibrillation. Patient overall is feeling improved today. States his breathing slightly easier today. He is on BiPAP during my exam. He has been saturating well in the low to mid 90s on BiPAP with an FiO2 of 40 and a flow rate of 5. Repeat chest x-ray yesterday showed pulmonary edema versus congestive heart failure. This image was viewed by me today. Labs reviewed: WBC 6.82 Hemoglobin 12.4 Creatinine 1.59/BUN 31 Bicarb 35 Medications reviewed: Furosemide 80 mg b.i.d., Coumadin, Anju ROS otherwise reviewed and negative Objective Vital signs reviewed: Patient has been afebrile HR 90 RR 19 BP 113/81 General: Morbidly obese. Currently on BiPAP during exam. Head: Normocephalic, Atraumatic. ENT: PERRLA, No discharge, EOMI, Sclera normal Neck: Normal ROM. Trachea midline. No stridor Respiratory: Decreased breath sounds likely due to body habitus. No adventitious sounds noted. Current the on BiPAP. Cardiovascular: Tachycardia. Abdomen: Nontender to palpation. Normal bowel sounds hear throughout. Truncal obesity Extremities: Moderate edema of bilateral lower extremities. Neuro: Alert. CN II-XII grossly intact. Sensation and motor function grossly intact. Psych: Mood and affect are normal. Assessment & Plan Acute hypoxic respiratory failure Morbid obesity Obstructive sleep apnea Obesity hypoventilation syndrome Atrial fibrillation on anticoagulation Supratherapeutic INR Fluid overload Acute on chronic renal failure Diastolic CHF Diabetes type 2 Patient appears to be much improved today. He is overall feeling better. His fluid balance is -17,000 total for admission. Recommend continued aggressive diuresis as renally tolerated. His ABG yesterday showed improvement of CO2 retention, and his breathing is better today. He was on nasal cannula for approximately 2 hours today, and he feels that he was breathing well at that time. Unsure of saturations at that time due to lack of documentation. Because the patient overall has improved, recommend tapering to nasal cannula O2 as able. Continue BiPAP at night/while asleep, but begin to taper nasal cannula O2 and O2 supplementation while awake. The patient very likely has RANDY and OHS, and will therefore need continued BiPAP at night as stated above. He will need a polysomnogram as an outpatient and will need follow up with Dr. Davidson or Anali Narajno PA-C in the sleep department. He will also need PFTs as outpatient. Continue with empiric antibiotics for now. Encourage OT/PT. We will continue to follow. Data Medications: Current Inpatient Medications Medications (Trade) Dose Ordered Sig/Rhea Route Start Time Stop Time Status Last Admin Dose Admin Diltiazem HCl (Dilacor Xr Cap) 120 mg DAILY PO 12/26/16 09:00 01/25/17 08:59 12/28/16 07:39 120 MG Fexofenadine HCl (Anju Tab) 180 mg DAILY PO 12/26/16 09:00 01/25/17 08:59 12/28/16 07:39 180 MG Glimepiride (Amaryl Tab) 2 mg QDB PO 12/26/16 07:30 01/25/17 07:29 12/28/16 07:39 2 MG Metoprolol Tartrate (Lopressor Tab) 50 mg BID PO 12/25/16 21:00 01/24/17 20:59 12/28/16 07:38 50 MG Oxybutynin Chloride (Ditropan Tab) 5 mg BID PO 12/25/16 21:00 01/24/17 20:59 12/28/16 07:39 5 MG Ascorbic Acid (Vitamin C Tab) 500 mg DAILY PO 12/26/16 09:00 01/25/17 08:59 12/28/16 07:39 500 MG Calcium/Vitamin D (Caltrate Plus Tab) 1 tab DAILY PO 12/26/16 09:00 01/25/17 08:59 12/28/16 07:39 1 TAB Cyanocobalamin (Vitamin B-12 Inj) 1,000 mcg Q60D@0900 IM 01/18/17 09:00 02/17/17 08:59 Pantoprazole Sodium (Protonix Tab) 40 mg QAM PO 12/26/16 09:00 01/25/17 08:59 12/28/16 07:39 40 MG Multivitamins (Flintstones Complete Tab) 1 tab QAM PO 12/26/16 09:00 01/25/17 08:59 12/28/16 07:39 1 TAB Nystatin (Mycostatin Powder) 1 appln BID EXT 12/25/16 21:00 01/24/17 20:59 12/28/16 07:38 1 APPLN Furosemide 80 mg/ Syringe 8 ml @ 4 mls/min BID IV 12/26/16 21:00 01/25/17 20:59 12/28/16 10:04 4 MLS/MIN Acetaminophen (Tylenol Tab) 650 mg Q4H PRN PO 12/26/16 23:00 01/25/17 22:59 12/26/16 23:23 650 MG Morphine Sulfate (MoRPHine SULFATE INJ) 2 mg Q4H PRN IV 12/27/16 09:45 01/10/17 09:44 12/27/16 17:38 2 MG Acetaminophen 100 ml @ 400 mls/hr Q8H PRN IV 12/27/16 09:45 01/03/17 09:44 12/27/16 10:54 400 MLS/HR Warfarin Sodium (Coumadin Tab) 5 mg DAILY@16 PO 12/28/16 16:00 01/27/17 15:59 I & O: 24-Hour Column 12/29/16 08:00 Intake Total 415 ml Output Total 2900 ml Balance -2485 ml Vital Signs: Date Time Temp Pulse Resp B/P (MAP) Pulse Ox O2 Delivery O2 Flow Rate FiO2 12/28/16 12:00 Nasal Cannula 4.0 12/28/16 11:28 36.7 80 20 130/86 (101) 94 5.0 12/28/16 08:17 36.8 108 16 127/82 (97) 94 BiPAP 12/28/16 08:00 85 99 40 12/28/16 08:00 BiPAP 12/28/16 05:46 76 95 40 12/28/16 04:02 BiPAP 12/28/16 03:55 36.6 82 16 120/68 (85) 96 CPAP 40 12/28/16 02:25 94 96 40 12/28/16 00:02 BiPAP 12/27/16 23:25 36.8 95 26 118/78 (91) 93 BiPAP 40 12/27/16 22:50 74 96 40 12/27/16 21:44 84 96 50 12/27/16 20:01 BiPAP 12/27/16 19:04 76 95 50 12/27/16 18:48 36.9 87 20 113/89 (97) 96 BiPAP 12/27/16 16:22 36.7 77 25 122/73 (89) 96 BiPAP Laboratory Results: Last 24 Hours Test 12/27/16 16:45 12/27/16 20:25 12/28/16 06:38 12/28/16 06:44 Bedside Glucose 81 mg/dl 88 mg/dl White Blood Count 6.82 K/uL Red Blood Count 4.21 M/uL Hemoglobin 12.4 g/dL Hematocrit 38.5 % Mean Corpuscular Volume 91.4 fL Mean Corpuscular Hemoglobin 29.5 pg Mean Corpuscular Hemoglobin Concent 32.2 g/dl RDW Standard Deviation 51.0 fL RDW Coefficient of Variation 15.4 % Platelet Count 172 K/uL Mean Platelet Volume 9.3 fL Prothrombin Time 24.7 SECONDS Prothromb Time International Ratio 2.2 Sodium Level 144 mmol/L Potassium Level 3.7 mmol/L Chloride Level 103 mmol/L Carbon Dioxide Level 35 mmol/L Anion Gap 6.0 mmol/L Blood Urea Nitrogen 31 mg/dl Creatinine 1.59 mg/dl Est Creatinine Clear Calc Drug Dose 85.0 ml/min Estimated GFR () 54.3 Estimated GFR (Non- 46.8 BUN/Creatinine Ratio 19.3 Random Glucose 95 mg/dl Calcium Level 8.6 mg/dl Ammonia 28.0 umol/L Test 12/28/16 07:02 Bedside Glucose 104 mg/dl
[2016-12-28] MEDS: WARFARIN SOD 5 MG TAB PO SCH (16:31)
[2016-12-29] VITALS (8 sets, daily range): BP systolic 121–133; BP diastolic 80–87; PULSE 77–98; TEMP 36.4–36.8; O2SAT 90–97
[2016-12-29 04:54] LABS: BASO % 0.2 %; BASO ABS # 0.02 K/uL (0-0.2); COMPLETE YES; EOS % 3.1 %; IG% 0.5 %; LYMPH ABS # 0.96 K/uL (1.2-3.4); MEAN CELL VOLUME 91.7 fL (80-100); MEAN CORPUSCULAR HEMOGLOBIN 28.6 pg (25-34); MEAN CORPUSCULAR HGB CONC 31.2 g/dl (32-36); MONO % 12.8 %; NEUT % 71.4 %; PLATELET COUNT 171 K/uL (130-400); RED BLOOD COUNT 4.47 M/uL (4.7-6.1); WHITE BLOOD COUNT 8.03 K/uL (4.8-10.8)
[2016-12-29 05:03] LABS: INR 1.8 (0.9-1.1); PROTHROMBIN TIME (PATIENT) 19.7 SECONDS (9.0-12.0)
[2016-12-29 05:24] LABS: BUN/CREATININE RATIO 17.6 (10-20); CALCIUM 8.5 mg/dl (8.5-10.1); CREATININE 1.64 mg/dl (0.60-1.40); POTASSIUM 3.7 mmol/L (3.5-5.1)
[2016-12-29] MEDS: FLINTSTONES COMPLETE CHEWABLE TAB PO SCH (07:25)
[2016-12-29] MEDS: GLIMEPIRIDE 2 MG TAB PO SCH (07:25)
[2016-12-29] MEDS: OXYBUTYNIN CHLORIDE 5 MG TAB PO SCH ×2 (07:25→20:18)
[2016-12-29] MEDS: METOPROLOL TARTRATE 50 MG TAB PO SCH ×2 (07:25→20:19)
[2016-12-29] MEDS: PANTOprazole SOD 40 MG TAB PO SCH (07:25)
[2016-12-29] MEDS: CALCIUM 600MG + VIT D 400 IU TAB PO SCH (07:25)
[2016-12-29] MEDS: DILTIAZEM HCL 120 MG ER CAP PO SCH (07:25)
[2016-12-29] MEDS: FEXOFENADINE HCL 180 MG TAB PO SCH (07:26)
[2016-12-29] MEDS: ASCORBIC ACID 500 MG TAB PO SCH (07:26)
[2016-12-29] MEDS: NYSTATIN POWDER 15GM BTL EXT SCH ×2 (07:26→20:24)
[2016-12-29] MEDS: FUROSEMIDE INJ 80 MG in SYRINGE 0 ML IV SCH (07:28)
--- NOTE | 2016-12-29 10:40 | Nephrology Progress Note ---
Nephrology Progress Note Date of Service Dec 29, 2016. Chief Complaint F/U for KINJAL Subjective Vincent was seen and examined in his room with family at bedside. Overall feeling better, denies SOB. diuresing with 7 L net negative. BP stable. Cr has been stable. Review of Systems A complete review of systems was performed. Pertinent positives are noted above. All other systems are negative. Vital Signs Last 8 Hrs Date Time Temp Pulse Resp B/P (MAP) Pulse Ox O2 Delivery O2 Flow Rate FiO2 12/29/16 08:00 Nasal Cannula 2.0 12/29/16 07:53 36.8 98 24 127/85 (99) 90 12/29/16 04:10 36.7 88 22 126/87 (100) 95 CPAP 12/29/16 04:00 97 BiPAP 40 Last Recorded Weight Weight (Kilograms): 172.000 Physical Exam GENERAL: Middle-aged male , AAA x 3, pleasant, morbidly obese not in any distress. NECK: Supple, no JVD. RESPIRATORY: Normal breathing efforts, no accessory muscle use, clear to auscultation bilaterally, no wheezes or rales. CARDIOVASCULAR: S1, S2 normal, rate rhythm regular. EXTREMITY: No lower extremity edema NEURO: speech fluent. 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 [email or web address]) Laboratory Results Past 24 Hours 12/29/16 04:40 Red Blood Count 4.47, Mean Corpuscular Volume 91.7, Mean Corpuscular Hemoglobin 28.6, Mean Corpuscular Hemoglobin Concent 31.2, Mean Platelet Volume 9.0, Neutrophils (%) (Auto) 71.4, Lymphocytes (%) (Auto) 12.0, Monocytes (%) (Auto) 12.8, Eosinophils (%) (Auto) 3.1, Basophils (%) (Auto) 0.2, Neutrophils # (Auto ) 5.73, Lymphocytes # (Auto) 0.96, Monocytes # (Auto) 1.03, Eosinophils # (Auto ) 0.25, Basophils # (Auto) 0.02 12/29/16 04:40 Test 12/28/16 16:28 12/28/16 20:11 12/29/16 04:40 12/29/16 06:55 Bedside Glucose 98 mg/dl (70-99) 94 mg/dl (70-99) 113 mg/dl (70-99) White Blood Count 8.03 K/uL (4.8-10.8) Red Blood Count 4.47 M/uL (4.7-6.1) Hemoglobin 12.8 g/dL (14.0-18.0) Hematocrit 41.0 % (42-52) Mean Corpuscular Volume 91.7 fL (80-100) Mean Corpuscular Hemoglobin 28.6 pg (25-34) Mean Corpuscular Hemoglobin Concent 31.2 g/dl (32-36) Platelet Count 171 K/uL (130-400) Mean Platelet Volume 9.0 fL (7.4-10.4) Neutrophils (%) (Auto) 71.4 % Lymphocytes (%) (Auto) 12.0 % Monocytes (%) (Auto) 12.8 % Eosinophils (%) (Auto) 3.1 % Basophils (%) (Auto) 0.2 % Neutrophils # (Auto) 5.73 K/uL (1.4-6.5) Lymphocytes # (Auto) 0.96 K/uL (1.2-3.4) Monocytes # (Auto) 1.03 K/uL (0.11-0.59) Eosinophils # (Auto) 0.25 K/uL (0-0.5) Basophils # (Auto) 0.02 K/uL (0-0.2) RDW Standard Deviation 52.1 fL (36.4-46.3) RDW Coefficient of Variation 15.7 % (11.5-14.5) Immature Granulocyte % (Auto) 0.5 % Immature Granulocyte # (Auto) 0.04 K/uL (0.00-0.02) Prothrombin Time 19.7 SECONDS (9.0-12.0) Prothromb Time International Ratio 1.8 (0.9-1.1) Anion Gap 4.0 mmol/L (3-11) Est Creatinine Clear Calc Drug Dose 82.4 ml/min Estimated GFR () 52.3 Estimated GFR (Non- 45.1 BUN/Creatinine Ratio 17.6 (10-20) Calcium Level 8.5 mg/dl (8.5-10.1) Pro-B-Type Natriuretic Peptide 2466 pg/ml (0-900) Allergies Coded Allergies: No Known Allergies (Unverified , 12/25/16) Medications Current Inpatient Medications Medications (Trade) Dose Ordered Sig/Rhea Route Start Time Stop Time Status Last Admin Dose Admin Diltiazem HCl (Dilacor Xr Cap) 120 mg DAILY PO 12/26/16 09:00 01/25/17 08:59 12/29/16 07:25 120 MG Fexofenadine HCl (Anju Tab) 180 mg DAILY PO 12/26/16 09:00 01/25/17 08:59 12/29/16 07:26 180 MG Glimepiride (Amaryl Tab) 2 mg QDB PO 12/26/16 07:30 01/25/17 07:29 12/29/16 07:25 2 MG Metoprolol Tartrate (Lopressor Tab) 50 mg BID PO 12/25/16 21:00 01/24/17 20:59 12/29/16 07:25 50 MG Oxybutynin Chloride (Ditropan Tab) 5 mg BID PO 12/25/16 21:00 01/24/17 20:59 12/29/16 07:25 5 MG Ascorbic Acid (Vitamin C Tab) 500 mg DAILY PO 12/26/16 09:00 01/25/17 08:59 12/29/16 07:26 500 MG Calcium/Vitamin D (Caltrate Plus Tab) 1 tab DAILY PO 12/26/16 09:00 01/25/17 08:59 12/29/16 07:25 1 TAB Cyanocobalamin (Vitamin B-12 Inj) 1,000 mcg Q60D@0900 IM 01/18/17 09:00 02/17/17 08:59 Pantoprazole Sodium (Protonix Tab) 40 mg QAM PO 12/26/16 09:00 01/25/17 08:59 12/29/16 07:25 40 MG Multivitamins (Flintstones Complete Tab) 1 tab QAM PO 12/26/16 09:00 01/25/17 08:59 12/29/16 07:25 1 TAB Nystatin (Mycostatin Powder) 1 appln BID EXT 12/25/16 21:00 01/24/17 20:59 12/29/16 07:26 1 APPLN Acetaminophen (Tylenol Tab) 650 mg Q4H PRN PO 12/26/16 23:00 01/25/17 22:59 12/26/16 23:23 650 MG Morphine Sulfate (MoRPHine SULFATE INJ) 2 mg Q4H PRN IV 12/27/16 09:45 01/10/17 09:44 12/27/16 17:38 2 MG Acetaminophen 100 ml @ 400 mls/hr Q8H PRN IV 12/27/16 09:45 01/03/17 09:44 12/27/16 10:54 400 MLS/HR Warfarin Sodium (Coumadin Tab) 5 mg DAILY@16 PO 12/28/16 16:00 01/27/17 15:59 12/28/16 16:31 5 MG Furosemide 40 mg/ Syringe 4 ml @ 4 mls/min BID IV 12/29/16 21:00 01/25/17 20:59 Acetazolamide (Diamox Tab) 250 mg BID PO 12/29/16 21:00 01/01/17 09:01 Impression (1) Atrial fibrillation (2) Acute renal insufficiency (3) CKD (chronic kidney disease), stage III (4) CHF (congestive heart failure) Mr. Hank Monzon is a morbidly obese 61-year-old male with non- oliguric KINJAL. KINJAL consistent with cardiorenal syndrome in the setting of right heart failure. Good diuresis with furosemide. Richardson remains intact. Medical history notable for recent diagnosis of new atrial fibrillation. Converted with flecainide. Urine analysis notable for 10-30 WBC, no RBC, granular casts noted. KINJAL is consistent with ATN and prerenal azotemia. No specific nephrotoxic medications identified. Blood culture 1 of 2 positive for strep. Has been diuresing aggressively with Lasix 80 twice a day, net negative has been 5-7 L/d Recommendations -- decrease Lasix to 40 mg twice a day, aim for net negative around a L/d --start Diamox 250 mg twice a day for 3 days -- Document I/O's -- Monitor metabolic profile daily
--- NOTE | 2016-12-29 10:45 | Pulmonology Progress Note ---
Pulmonary Progress Note Date of Service Dec 29, 2016. Attending Dr. Richardson Subjective Patient is feeling much improved today. He is concerned that when he is discharged she will need oxygen and BiPAP at night. Patient states that breathing is easier today. He is currently on nasal cannula oxygen at a flow rate of 2 liters. Labs were reviewed. White blood cell count 8.03. Hemoglobin 12.8. Bicarb level 41 %period% creatinine 1.64. The patient I and Os were reviewed as well. Cumulative balance is -20,755. His medications were also reviewed. The patient continues on Lasix 40 mg b.i.d.. He is improving from a pulmonary standpoint. This patient was seen in conjunction with Dr. Richardson. He otherwise states that he is not having any chest tightness or chest pain. He denies cough or hemoptysis. Objective Vital signs reviewed: Afebrile Heart rate 88-98 Respiratory rate 20 2-24 Blood pressure 126/87 Sa O2 90% on 2 liters via nasal cannula General: Morbidly obese. Currently on nasal cannula O2 2 liters Head: Normocephalic, Atraumatic. ENT: PERRLA, No discharge, EOMI, Sclera normal Neck: Normal ROM. Trachea midline. No stridor Respiratory: Improved aeration today. Fine crackles at the bilateral bases. Cardiovascular: Regular rate Abdomen: Truncal obesity Extremities: Edema of bilateral lower extremities which appears to be slightly improved. Neuro: Alert. CN II-XII grossly intact. Sensation and motor function grossly intact. Psych: Mood and affect are normal. Assessment & Plan Acute hypoxic respiratory failure Morbid obesity Obstructive sleep apnea Obesity hypoventilation syndrome Atrial fibrillation on anticoagulation Supratherapeutic INR Fluid overload Acute on chronic renal failure Diastolic CHF Diabetes type 2 Patient appears to have continued improvement today. He is overall feeling better. His ABG yesterday showed improvement of CO2 retention, and his breathing is better today. Continue to taper oxygen as tolerated throughout the day. He is currently saturating around 90% on 2 liters. Continue BiPAP at night. The patient very likely has RANDY and OHS, and will therefore need continued BiPAP at night as stated above. He will need a polysomnogram as an outpatient and will need follow up with Dr. Davidson or Anali Naranjo PA-C in the sleep department. He will also need PFTs as outpatient. Prior to discharge from the hospital, recommend that the patient have an overnight pulse oximetry study completed to assess his oxygen level while sleeping. He will also need an ABG the next morning after nocturnal pulse oximetry. Discussed this with COLT Salazar. Patient continues to diurese large amounts of fluid. Continue diuresis as renally tolerated. Seems most likely that his pulmonary issues were exacerbated by fluid overload. Encourage OT/PT. We will continue to follow. Data Medications: Current Inpatient Medications Medications (Trade) Dose Ordered Sig/Rhea Route Start Time Stop Time Status Last Admin Dose Admin Diltiazem HCl (Dilacor Xr Cap) 120 mg DAILY PO 12/26/16 09:00 01/25/17 08:59 12/29/16 07:25 120 MG Fexofenadine HCl (Anju Tab) 180 mg DAILY PO 12/26/16 09:00 01/25/17 08:59 12/29/16 07:26 180 MG Glimepiride (Amaryl Tab) 2 mg QDB PO 12/26/16 07:30 01/25/17 07:29 12/29/16 07:25 2 MG Metoprolol Tartrate (Lopressor Tab) 50 mg BID PO 12/25/16 21:00 01/24/17 20:59 12/29/16 07:25 50 MG Oxybutynin Chloride (Ditropan Tab) 5 mg BID PO 12/25/16 21:00 01/24/17 20:59 12/29/16 07:25 5 MG Ascorbic Acid (Vitamin C Tab) 500 mg DAILY PO 12/26/16 09:00 01/25/17 08:59 12/29/16 07:26 500 MG Calcium/Vitamin D (Caltrate Plus Tab) 1 tab DAILY PO 12/26/16 09:00 01/25/17 08:59 12/29/16 07:25 1 TAB Cyanocobalamin (Vitamin B-12 Inj) 1,000 mcg Q60D@0900 IM 01/18/17 09:00 02/17/17 08:59 Pantoprazole Sodium (Protonix Tab) 40 mg QAM PO 12/26/16 09:00 01/25/17 08:59 12/29/16 07:25 40 MG Multivitamins (Flintstones Complete Tab) 1 tab QAM PO 12/26/16 09:00 12/7/17 08:59 12/29/16 07:25 1 TAB Nystatin (Mycostatin Powder) 1 appln BID EXT 12/25/16 21:00 01/24/17 20:59 12/29/16 07:26 1 APPLN Acetaminophen (Tylenol Tab) 650 mg Q4H PRN PO 12/26/16 23:00 01/25/17 22:59 12/26/16 23:23 650 MG Morphine Sulfate (MoRPHine SULFATE INJ) 2 mg Q4H PRN IV 12/27/16 09:45 01/10/17 09:44 12/27/16 17:38 2 MG Acetaminophen 100 ml @ 400 mls/hr Q8H PRN IV 12/27/16 09:45 01/03/17 09:44 12/27/16 10:54 400 MLS/HR Warfarin Sodium (Coumadin Tab) 5 mg DAILY@16 PO 12/28/16 16:00 01/27/17 15:59 12/28/16 16:31 5 MG Furosemide 40 mg/ Syringe 4 ml @ 4 mls/min BID IV 12/29/16 21:00 01/25/17 20:59 Acetazolamide (Diamox Tab) 250 mg BID PO 12/29/16 21:00 01/01/17 09:01 Vital Signs: Date Time Temp Pulse Resp B/P (MAP) Pulse Ox O2 Delivery O2 Flow Rate FiO2 12/29/16 08:00 Nasal Cannula 2.0 12/29/16 07:53 36.8 98 24 127/85 (99) 90 12/29/16 04:10 36.7 88 22 126/87 (100) 95 CPAP 12/29/16 04:00 97 BiPAP 40 12/28/16 23:59 96 BiPAP 40 12/28/16 23:21 36.7 78 22 126/83 (97) 97 BiPAP 12/28/16 21:26 84 94 40 12/28/16 20:00 Nasal Cannula 3.0 12/28/16 19:34 36.7 90 28 127/78 (94) 92 Nasal Cannula 2.0 12/28/16 16:00 Nasal Cannula 4.0 12/28/16 15:51 36.8 90 19 113/81 (92) 91 BiPAP 12/28/16 12:00 Nasal Cannula 4.0 12/28/16 11:28 36.7 80 20 130/86 (101) 94 5.0 Laboratory Results: Last 24 Hours Test 12/28/16 16:28 12/28/16 20:11 12/29/16 04:40 12/29/16 06:55 Bedside Glucose 98 mg/dl 94 mg/dl 113 mg/dl White Blood Count 8.03 K/uL Red Blood Count 4.47 M/uL Hemoglobin 12.8 g/dL Hematocrit 41.0 % Mean Corpuscular Volume 91.7 fL Mean Corpuscular Hemoglobin 28.6 pg Mean Corpuscular Hemoglobin Concent 31.2 g/dl Platelet Count 171 K/uL Mean Platelet Volume 9.0 fL Neutrophils (%) (Auto) 71.4 % Lymphocytes (%) (Auto) 12.0 % Monocytes (%) (Auto) 12.8 % Eosinophils (%) (Auto) 3.1 % Basophils (%) (Auto) 0.2 % Neutrophils # (Auto) 5.73 K/uL Lymphocytes # (Auto) 0.96 K/uL Monocytes # (Auto) 1.03 K/uL Eosinophils # (Auto) 0.25 K/uL Basophils # (Auto) 0.02 K/uL RDW Standard Deviation 52.1 fL RDW Coefficient of Variation 15.7 % Immature Granulocyte % (Auto) 0.5 % Immature Granulocyte # (Auto) 0.04 K/uL Prothrombin Time 19.7 SECONDS Prothromb Time International Ratio 1.8 Sodium Level 142 mmol/L Potassium Level 3.7 mmol/L Chloride Level 97 mmol/L Carbon Dioxide Level 41 mmol/L Anion Gap 4.0 mmol/L Blood Urea Nitrogen 29 mg/dl Creatinine 1.64 mg/dl Est Creatinine Clear Calc Drug Dose 82.4 ml/min Estimated GFR () 52.3 Estimated GFR (Non- 45.1 BUN/Creatinine Ratio 17.6 Random Glucose 120 mg/dl Calcium Level 8.5 mg/dl Pro-B-Type Natriuretic Peptide 2466 pg/ml
--- NOTE | 2016-12-29 12:43 | Hospitalist Progress Note ---
Hospitalist Progress Note Date of Service Dec 29, 2016. (Frieda Ramirez CRNP) Subjective Pt evaluation today including: conversation w/ patient, physical exam, chart review, lab review, review of studies, review of inpatient medication list Voiding: kraft catheter in place Mr. Monzon has improved today, tolerating 2L NC. He was able to ambulate in his room with a walker to sit in a chair for an hour. He has diuresed over 17L at this point ROS Constitutional: no chills, aches, sweats or fever Respiratory: coronado, no cough, sputum, or wheezing Cardiac: no chest pain, palpitations, edema, orthopnea or lightheadedness GI: no abdominal pain, nausea, vomiting, diarrhea or constipation : no dysuria or hesitancy Extremities: no joint pain or weakness Skin: no rash (Frieda Ramirez CRNP) Medications Medications Administered Medications (Trade) Dose Ordered Sig/Rhea Route Start Time Stop Time Status Last Admin Dose Admin Bumetanide (Bumex Iv) 1 mg NOW STAT IV 12/25/16 08:12 12/25/16 08:16 DC 12/25/16 08:19 1 MG Diltiazem HCl (Dilacor Xr Cap) 120 mg DAILY PO 12/26/16 09:00 01/25/17 08:59 12/29/16 07:25 120 MG Fexofenadine HCl (Anju Tab) 180 mg DAILY PO 12/26/16 09:00 01/25/17 08:59 12/29/16 07:26 180 MG Glimepiride (Amaryl Tab) 2 mg QDB PO 12/26/16 07:30 01/25/17 07:29 12/29/16 07:25 2 MG Metoprolol Tartrate (Lopressor Tab) 50 mg BID PO 12/25/16 21:00 01/24/17 20:59 12/29/16 07:25 50 MG Oxybutynin Chloride (Ditropan Tab) 5 mg BID PO 12/25/16 21:00 01/24/17 20:59 12/29/16 07:25 5 MG Ascorbic Acid (Vitamin C Tab) 500 mg DAILY PO 12/26/16 09:00 01/25/17 08:59 12/29/16 07:26 500 MG Calcium/Vitamin D (Caltrate Plus Tab) 1 tab DAILY PO 12/26/16 09:00 01/25/17 08:59 12/29/16 07:25 1 TAB Pantoprazole Sodium (Protonix Tab) 40 mg QAM PO 12/26/16 09:00 01/25/17 08:59 12/29/16 07:25 40 MG Multivitamins (Flintstones Complete Tab) 1 tab QAM PO 12/26/16 09:00 01/25/17 08:59 12/29/16 07:25 1 TAB Nystatin (Mycostatin Powder) 1 appln BID EXT 12/25/16 21:00 01/24/17 20:59 12/29/16 07:26 1 APPLN Ampicillin Sodium/ Sulbactam Sodium 3000 mg/Sodium Chloride 108 ml @ 200 mls/hr Q6H IV 12/26/16 00:00 12/26/16 14:00 DC 12/26/16 12:18 200 MLS/HR Vancomycin HCl 2000 mg/Sodium Chloride 540 ml @ 200 mls/hr TODAY@0400 ONCE IV 12/26/16 04:00 12/26/16 06:41 DC 12/26/16 04:38 200 MLS/HR Vancomycin HCl 2000 mg/Sodium Chloride 540 ml @ 200 mls/hr NOW STAT IV 12/25/16 22:40 12/26/16 01:21 DC 12/25/16 22:53 200 MLS/HR Furosemide (Lasix Tab) 40 mg 1000 ONCE PO 12/26/16 10:00 12/26/16 10:01 DC 12/26/16 12:17 40 MG Vancomycin HCl 2000 mg/Sodium Chloride 540 ml @ 200 mls/hr Q12H IV 12/26/16 16:00 12/27/16 14:02 DC 12/27/16 03:44 200 MLS/HR Furosemide 40 mg/ Syringe 4 ml @ 4 mls/min NOW ONCE IV 12/26/16 13:00 12/26/16 13:01 DC 12/26/16 14:19 4 MLS/MIN Furosemide 80 mg/ Syringe 8 ml @ 4 mls/min BID IV 12/26/16 21:00 12/29/16 09:26 DC 12/29/16 07:28 4 MLS/MIN Acetaminophen (Tylenol Tab) 650 mg Q4H PRN PO 12/26/16 23:00 01/25/17 22:59 12/26/16 23:23 650 MG Morphine Sulfate (MoRPHine SULFATE INJ) 2 mg Q4H PRN IV 12/27/16 09:45 01/10/17 09:44 12/27/16 17:38 2 MG Acetaminophen 100 ml @ 400 mls/hr Q8H PRN IV 12/27/16 09:45 01/03/17 09:44 12/27/16 10:54 400 MLS/HR Warfarin Sodium (Coumadin Tab) 5 mg DAILY@16 PO 12/28/16 16:00 01/27/17 15:59 12/28/16 16:31 5 MG (Frieda Ramirez CRNP) Objective Vital Signs Date Time Temp Pulse Resp B/P (MAP) Pulse Ox O2 Delivery O2 Flow Rate FiO2 12/29/16 12:05 36.6 90 16 124/80 (95) 90 12/29/16 12:00 Nasal Cannula 2.0 12/29/16 08:00 Nasal Cannula 2.0 12/29/16 07:53 36.8 98 24 127/85 (99) 90 12/29/16 04:10 36.7 88 22 126/87 (100) 95 CPAP 12/29/16 04:00 97 BiPAP 40 12/28/16 23:59 96 BiPAP 40 12/28/16 23:21 36.7 78 22 126/83 (97) 97 BiPAP 12/28/16 21:26 84 94 40 12/28/16 20:00 Nasal Cannula 3.0 12/28/16 19:34 36.7 90 28 127/78 (94) 92 Nasal Cannula 2.0 12/28/16 16:00 Nasal Cannula 4.0 12/28/16 15:51 36.8 90 19 113/81 (92) 91 BiPAP (Frieda Ramirez CRNP) Physical Exam Notes: General: no distress Eyes: normal inspection, PERLL Respiratory: chest non tender, diminished breath sounds, no respiratory distress , no accessory muscle use Cardiac: regular rate and rhythm, no rub or gallop, no murmur, no edema, no jvd GI/: active bowel sounds, no abd pain or tenderness, soft, non distended Extremities: normal range of motion, normal strength, non tender Neuro/Psych: alert and oriented x 3, normal mood and affect Skin: normal color, dry (Frieda Ramirez CRNP) Laboratory Results Last 24 Hours Test 12/28/16 16:28 12/28/16 20:11 12/29/16 04:40 12/29/16 06:55 Bedside Glucose 98 mg/dl 94 mg/dl 113 mg/dl White Blood Count 8.03 K/uL Red Blood Count 4.47 M/uL Hemoglobin 12.8 g/dL Hematocrit 41.0 % Mean Corpuscular Volume 91.7 fL Mean Corpuscular Hemoglobin 28.6 pg Mean Corpuscular Hemoglobin Concent 31.2 g/dl Platelet Count 171 K/uL Mean Platelet Volume 9.0 fL Neutrophils (%) (Auto) 71.4 % Lymphocytes (%) (Auto) 12.0 % Monocytes (%) (Auto) 12.8 % Eosinophils (%) (Auto) 3.1 % Basophils (%) (Auto) 0.2 % Neutrophils # (Auto) 5.73 K/uL Lymphocytes # (Auto) 0.96 K/uL Monocytes # (Auto) 1.03 K/uL Eosinophils # (Auto) 0.25 K/uL Basophils # (Auto) 0.02 K/uL RDW Standard Deviation 52.1 fL RDW Coefficient of Variation 15.7 % Immature Granulocyte % (Auto) 0.5 % Immature Granulocyte # (Auto) 0.04 K/uL Prothrombin Time 19.7 SECONDS Prothromb Time International Ratio 1.8 Sodium Level 142 mmol/L Potassium Level 3.7 mmol/L Chloride Level 97 mmol/L Carbon Dioxide Level 41 mmol/L Anion Gap 4.0 mmol/L Blood Urea Nitrogen 29 mg/dl Creatinine 1.64 mg/dl Est Creatinine Clear Calc Drug Dose 82.4 ml/min Estimated GFR () 52.3 Estimated GFR (Non- 45.1 BUN/Creatinine Ratio 17.6 Random Glucose 120 mg/dl Calcium Level 8.5 mg/dl Pro-B-Type Natriuretic Peptide 2466 pg/ml (Frieda Ramirez CRNP) Assessment and Plan Mr. Monzon is a 61 year old man who presented with sob for a few days as well as increasing edema and orthopnea. 12/28 He was requiring 12L when off bipap and 60 % FiO2 on bipap. Today his oxygen requirements have improved, needing 2L NC. Borderline concentric left ventricular heart failure, right diastolic failure - Echo - borderline concentric left ventricular hypertrophy, left and right ventricular systolic function is normal. - 17 liters negative so far - serial troponins normal - daily weights,strict I&Os Acute respiratory failure/obesity hypoventilation - abg 12/28 showed improving CO2 retention - 1/2 cultures with group A strep, no growth in second vial - vancomycin discontinued, repeat draw no growth to date - will need nocturnal pulse ox and abg before d/c to qualify for bipap at home as recommended by pulmonary - continue to titrate oxygen Acute Renal Failure - baseline creatinine appears to be around 1.5,creatinine took a slight increase today, diuretics changed to diamox and decreased lasix per nephrology Atrial fibrillation - patient back in atrial fibrillation, rate controlled - continue tele monitor - continue metoprolol and calcium channel blockers - warfarin restarted as INR has normalized - not therapeutic today, INR in the morning DMII - continue glimepiride - BSG AC&HS Skin folds excoriation/yeast - continue nystatin powder - wound care consult coumadin Full code (Frieda Ramirez ., COLT) Attending Attestation: Pt seen/examined, chart reviewed, care plan d/w COLT Ramirez. I agree w/ the aquino components of her documentation except his CHF is acute/ chronic diastolic CHF and his respiratory failure is acute hypoxic/hypercarbic respiratory failure. Pt feeling much better. Denies dyspnea during my visit. VSS -20 liters (or more) since admission gen - obese neck - difficult to assess for JVD but nothing obvious heart - irregular lungs - decreased BS bases otherwise clear abd - 2 separate hernias - both reducible; BS+ ext - trace edema, stasis changes A/P: 1. acute hypoxic/hypercarbic resp failure - resolving 2. acute/chronic diastolic CHF - improving continue diuresis agree w/ diamox due to contraction alkalosis repeat BMP PT, OT evals Justin Del Rio MD (Justin Del Rio MD)
--- NOTE | 2016-12-29 12:52 | Cardiology Follow-Up ---
Subjective Date of Service: Dec 29, 2016. Pt evaluation today including: conversation w/ patient, physical exam, chart review, lab review, review of studies History of Present Illness Patient is feeling much better this morning. He feels quite comfortable without using the BiPAP. He claims to have been up sitting on his walker. He denies breathing difficulty at rest. Denies any symptoms of chest pain. He is not aware of any palpitations. Social History Smoking Status: Never Smoker History of Alcohol Use: Yes (2-3 beer every other weekend) Objective Vital Signs Past 12 Hours Date Time Temp Pulse Resp B/P (MAP) Pulse Ox O2 Delivery O2 Flow Rate FiO2 12/29/16 12:05 36.6 90 16 124/80 (95) 90 12/29/16 12:00 Nasal Cannula 2.0 12/29/16 08:00 Nasal Cannula 2.0 12/29/16 07:53 36.8 98 24 127/85 (99) 90 12/29/16 04:10 36.7 88 22 126/87 (100) 95 CPAP 12/29/16 04:00 97 BiPAP 40 Last Recorded Weight-Kilograms: 172.000 Physical Exam The patient is alert and oriented. Mood and affect appeared normal. He answered all questions appropriately. Morbidly obese HEENT: Pupils are equal and reactive to light and accommodation. Extraocular movements are intact. The sclerae are anicteric. Neuro: Cranial nerves intact Lungs: Lung apices appear clear. There are no rales appreciated. The upper airway sounds. There is no wheezing. Cardiac: Heart demonstrates an irregular rate and rhythm. Normal S1 and S2. No murmurs on examination. Abdomen: Obese, nontender Pulses: The patient has palpable radial pulses bilaterally that are equal in intensity Extremities: There was no evidence of hypoperfusion. There is no cyanosis or clubbing. Moderate bilateral peripheral edema. Skin: He has multiple rashes on his lower extremities. Data Laboratory Results: Last 24 Hours Test 12/28/16 16:28 12/28/16 20:11 12/29/16 04:40 12/29/16 06:55 Bedside Glucose 98 mg/dl 94 mg/dl 113 mg/dl White Blood Count 8.03 K/uL Red Blood Count 4.47 M/uL Hemoglobin 12.8 g/dL Hematocrit 41.0 % Mean Corpuscular Volume 91.7 fL Mean Corpuscular Hemoglobin 28.6 pg Mean Corpuscular Hemoglobin Concent 31.2 g/dl Platelet Count 171 K/uL Mean Platelet Volume 9.0 fL Neutrophils (%) (Auto) 71.4 % Lymphocytes (%) (Auto) 12.0 % Monocytes (%) (Auto) 12.8 % Eosinophils (%) (Auto) 3.1 % Basophils (%) (Auto) 0.2 % Neutrophils # (Auto) 5.73 K/uL Lymphocytes # (Auto) 0.96 K/uL Monocytes # (Auto) 1.03 K/uL Eosinophils # (Auto) 0.25 K/uL Basophils # (Auto) 0.02 K/uL RDW Standard Deviation 52.1 fL RDW Coefficient of Variation 15.7 % Immature Granulocyte % (Auto) 0.5 % Immature Granulocyte # (Auto) 0.04 K/uL Prothrombin Time 19.7 SECONDS Prothromb Time International Ratio 1.8 Sodium Level 142 mmol/L Potassium Level 3.7 mmol/L Chloride Level 97 mmol/L Carbon Dioxide Level 41 mmol/L Anion Gap 4.0 mmol/L Blood Urea Nitrogen 29 mg/dl Creatinine 1.64 mg/dl Est Creatinine Clear Calc Drug Dose 82.4 ml/min Estimated GFR () 52.3 Estimated GFR (Non- 45.1 BUN/Creatinine Ratio 17.6 Random Glucose 120 mg/dl Calcium Level 8.5 mg/dl Pro-B-Type Natriuretic Peptide 2466 pg/ml Telemetry reviewed: Rate controlled atrial fibrillation Assessment and Plan 1. Atrial fibrillation: No symptoms. Overall rate control appears to be adequate while he is in bed. I think we will have a better understanding of whether his medical regimen is adequate once he is more ambulatory and active. He should continue his anticoagulation indefinitely. 2. Hypoxia: His breathing is much improved in his hypoxia is nearly resolved. He is requiring very little oxygen today. He will continued to have a very profound diuresis. His diuretics have been reduced as result. He has an element of volume overload in general with significant peripheral edema. Whether all of his pulmonary symptoms were related to edema is unclear. His N terminal proBNP is much higher than admission likely related to a conversion to atrial fibrillation. Clinically he is doing much better. Will continue to monitor his diuresis and decide on an outpatient diuretic regimen prior to discharge.
[2016-12-29] MEDS: WARFARIN SOD 5 MG TAB PO SCH (16:00)
[2016-12-29] MEDS: FUROSEMIDE INJ 40 MG in SYRINGE 0 ML IV SCH (20:17)
[2016-12-29] MEDS: AcetaZOLAMIDE 250 MG TAB PO SCH (20:18)
[2016-12-29] MEDS: ACETAMINOPHEN 325 MG TAB PO PRN (20:26)
[2016-12-30] VITALS (9 sets, daily range): BP systolic 96–125; BP diastolic 61–77; PULSE 76–97; TEMP 36.3–37; O2SAT 92–98
[2016-12-30 06:44] LABS: INR 1.5 (0.9-1.1); PROTHROMBIN TIME (PATIENT) 16.8 SECONDS (9.0-12.0)
[2016-12-30 07:04] LABS: BUN/CREATININE RATIO 19.4 (10-20); CALCIUM 8.7 mg/dl (8.5-10.1); CREATININE 1.74 mg/dl (0.60-1.40); MAGNESIUM 2.3 mg/dl (1.8-2.4); POTASSIUM 3.4 mmol/L (3.5-5.1)
[2016-12-30] MEDS: METOPROLOL TARTRATE 50 MG TAB PO SCH ×2 (08:53→20:30)
[2016-12-30] MEDS: AcetaZOLAMIDE 250 MG TAB PO SCH ×2 (08:53→20:29)
[2016-12-30] MEDS: PANTOprazole SOD 40 MG TAB PO SCH (08:53)
[2016-12-30] MEDS: OXYBUTYNIN CHLORIDE 5 MG TAB PO SCH ×2 (08:53→20:30)
[2016-12-30] MEDS: NYSTATIN POWDER 15GM BTL EXT SCH ×2 (08:54→20:31)
[2016-12-30] MEDS: FEXOFENADINE HCL 180 MG TAB PO SCH (08:54)
[2016-12-30] MEDS: GLIMEPIRIDE 2 MG TAB PO SCH (08:54)
[2016-12-30] MEDS: FLINTSTONES COMPLETE CHEWABLE TAB PO SCH (08:54)
[2016-12-30] MEDS: CALCIUM 600MG + VIT D 400 IU TAB PO SCH (08:54)
[2016-12-30] MEDS: ASCORBIC ACID 500 MG TAB PO SCH (08:54)
[2016-12-30] MEDS: DILTIAZEM HCL 120 MG ER CAP PO SCH (08:54)
[2016-12-30] MEDS: FUROSEMIDE INJ 40 MG in SYRINGE 0 ML IV SCH (08:55)
[2016-12-30] MEDS: POTASSIUM CHLORIDE 20 MEQ TABCR PO SCH ×2 (09:00→20:30)
--- NOTE | 2016-12-30 11:13 | Nephrology Progress Note ---
Nephrology Progress Note Date of Service Dec 30, 2016. Chief Complaint F/U for KINJAL Subjective Vincent was seen and examined. BP stable, net neg 4 L, Cr worsened to 1.7. No SOB, CP. Review of Systems A complete review of systems was performed. Pertinent positives are noted above. All other systems are negative. Vital Signs Last 8 Hrs Date Time Temp Pulse Resp B/P (MAP) Pulse Ox O2 Delivery O2 Flow Rate FiO2 12/30/16 10:57 36.5 91 18 117/70 (86) 94 Nasal Cannula 2.5 12/30/16 08:00 Nasal Cannula 2.0 12/30/16 07:20 36.5 97 14 125/74 (91) 92 Nasal Cannula 2.0 12/30/16 04:41 36.3 83 12 96/73 (81) 94 BiPAP 12/30/16 04:00 94 BiPAP 40 Last Recorded Weight Weight (Kilograms): 170.000 Physical Exam GENERAL: Middle-aged male , AAA x 3, pleasant, morbidly obese not in any distress. NECK: Supple, no JVD. RESPIRATORY: Normal breathing efforts, no accessory muscle use, clear to auscultation bilaterally, no wheezes or rales. CARDIOVASCULAR: S1, S2 normal, rate rhythm regular. EXTREMITY: No lower extremity edema NEURO: speech fluent. 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) Laboratory Results Past 24 Hours 12/30/16 06:01 Test 12/29/16 16:35 12/29/16 20:22 12/30/16 06:01 12/30/16 06:32 Bedside Glucose 157 mg/dl (70-99) 99 mg/dl (70-99) 111 mg/dl (70-99) Prothrombin Time 16.8 SECONDS (9.0-12.0) Prothromb Time International Ratio 1.5 (0.9-1.1) Anion Gap 5.0 mmol/L (3-11) Est Creatinine Clear Calc Drug Dose 75.9 ml/min Estimated GFR () 48.7 Estimated GFR (Non- 42.0 BUN/Creatinine Ratio 19.4 (10-20) Calcium Level 8.7 mg/dl (8.5-10.1) Magnesium Level 2.3 mg/dl (1.8-2.4) Allergies Coded Allergies: No Known Allergies (Unverified , 12/25/16) Medications Current Inpatient Medications Medications (Trade) Dose Ordered Sig/Rhea Route Start Time Stop Time Status Last Admin Dose Admin Diltiazem HCl (Dilacor Xr Cap) 120 mg DAILY PO 12/26/16 09:00 01/25/17 08:59 12/30/16 08:54 120 MG Fexofenadine HCl (Anju Tab) 180 mg DAILY PO 12/26/16 09:00 01/25/17 08:59 12/30/16 08:54 180 MG Glimepiride (Amaryl Tab) 2 mg QDB PO 12/26/16 07:30 01/25/17 07:29 12/30/16 08:54 2 MG Metoprolol Tartrate (Lopressor Tab) 50 mg BID PO 12/25/16 21:00 01/24/17 20:59 12/30/16 08:53 50 MG Oxybutynin Chloride (Ditropan Tab) 5 mg BID PO 12/25/16 21:00 01/24/17 20:59 12/30/16 08:53 5 MG Ascorbic Acid (Vitamin C Tab) 500 mg DAILY PO 12/26/16 09:00 01/25/17 08:59 12/30/16 08:54 500 MG Calcium/Vitamin D (Caltrate Plus Tab) 1 tab DAILY PO 12/26/16 09:00 01/25/17 08:59 12/30/16 08:54 1 TAB Cyanocobalamin (Vitamin B-12 Inj) 1,000 mcg Q60D@0900 IM 01/18/17 09:00 02/17/17 08:59 Pantoprazole Sodium (Protonix Tab) 40 mg QAM PO 12/26/16 09:00 01/25/17 08:59 12/30/16 08:53 40 MG Multivitamins (Flintstones Complete Tab) 1 tab QAM PO 12/26/16 09:00 01/25/17 08:59 12/30/16 08:54 1 TAB Nystatin (Mycostatin Powder) 1 appln BID EXT 12/25/16 21:00 01/24/17 20:59 12/30/16 08:54 1 APPLN Acetaminophen (Tylenol Tab) 650 mg Q4H PRN PO 12/26/16 23:00 01/25/17 22:59 12/29/16 20:26 650 MG Morphine Sulfate (MoRPHine SULFATE INJ) 2 mg Q4H PRN IV 12/27/16 09:45 01/10/17 09:44 12/27/16 17:38 2 MG Acetaminophen 100 ml @ 400 mls/hr Q8H PRN IV 12/27/16 09:45 01/03/17 09:44 12/27/16 10:54 400 MLS/HR Warfarin Sodium (Coumadin Tab) 5 mg DAILY@16 PO 12/28/16 16:00 01/27/17 15:59 12/29/16 16:00 5 MG Acetazolamide (Diamox Tab) 250 mg BID PO 12/29/16 21:00 01/01/17 09:01 12/30/16 08:53 250 MG Potassium Chloride (Klor-Con Tab) 40 meq BID PO 12/30/16 09:00 01/29/17 08:59 Impression (1) Atrial fibrillation (2) Acute renal insufficiency (3) CKD (chronic kidney disease), stage III (4) CHF (congestive heart failure) Mr. Hank Monzon is a morbidly obese 61-year-old male with non- oliguric KINJAL. KINJAL consistent with cardiorenal syndrome in the setting of right heart failure. Good diuresis with furosemide. Richardson remains intact. Medical history notable for recent diagnosis of new atrial fibrillation. Converted with flecainide. Urine analysis notable for 10-30 WBC, no RBC, granular casts noted. KINJAL is consistent with ATN and prerenal azotemia. No specific nephrotoxic medications identified. Blood culture 1 of 2 positive for strep. Has been diuresing aggressively with Lasix 80 twice a day, net negative has been 5-7 L/d Recommendations -- Hold lasix, aim for net negative around 1 L/d --on Diamox 250 mg twice a day for 3 days -- Document I/O's -- Monitor metabolic profile daily
--- NOTE | 2016-12-30 12:56 | Cardiology Follow-Up ---
Subjective Date of Service: Dec 30, 2016. Pt evaluation today including: conversation w/ patient, physical exam, chart review, lab review, review of studies History of Present Illness Patient claims to be feeling well. He was up in a chair for an extended period today and did ambulate around his room. He denies significant dyspnea. He still feels somewhat weak but this is improving. He has no symptoms of chest discomfort. He is not aware of any palpitations. He did not report significant dizziness or lightheadedness.. Social History Smoking Status: Never Smoker History of Alcohol Use: Yes (2-3 beer every other weekend) Objective Vital Signs Past 12 Hours Date Time Temp Pulse Resp B/P (MAP) Pulse Ox O2 Delivery O2 Flow Rate FiO2 12/30/16 10:57 36.5 91 18 117/70 (86) 94 Nasal Cannula 2.5 12/30/16 08:00 Nasal Cannula 2.0 12/30/16 07:20 36.5 97 14 125/74 (91) 92 Nasal Cannula 2.0 12/30/16 04:41 36.3 83 12 96/73 (81) 94 BiPAP 12/30/16 04:00 94 BiPAP 40 Last Recorded Weight-Kilograms: 170.000 Physical Exam The patient is alert and oriented. Mood and affect appeared normal. He answered all questions appropriately. Morbidly obese HEENT: Pupils are equal and reactive to light and accommodation. Extraocular movements are intact. The sclerae are anicteric. Neuro: Cranial nerves intact Lungs: Lung apices appear clear. There are no rales appreciated. The upper airway sounds. There is no wheezing. Cardiac: Heart demonstrates an irregular rate and rhythm. Normal S1 and S2. No murmurs on examination. Abdomen: Obese, nontender Pulses: The patient has palpable radial pulses bilaterally that are equal in intensity Extremities: There was no evidence of hypoperfusion. There is no cyanosis or clubbing. Moderate bilateral peripheral edema. Skin: He has multiple rashes on his lower extremities. Data Laboratory Results: Last 24 Hours Test 12/29/16 16:35 12/29/16 20:22 12/30/16 06:01 12/30/16 06:32 Bedside Glucose 157 mg/dl 99 mg/dl 111 mg/dl Prothrombin Time 16.8 SECONDS Prothromb Time International Ratio 1.5 Sodium Level 140 mmol/L Potassium Level 3.4 mmol/L Chloride Level 96 mmol/L Carbon Dioxide Level 39 mmol/L Anion Gap 5.0 mmol/L Blood Urea Nitrogen 34 mg/dl Creatinine 1.74 mg/dl Est Creatinine Clear Calc Drug Dose 75.9 ml/min Estimated GFR () 48.7 Estimated GFR (Non- 42.0 BUN/Creatinine Ratio 19.4 Random Glucose 118 mg/dl Calcium Level 8.7 mg/dl Magnesium Level 2.3 mg/dl Test 12/30/16 11:28 Bedside Glucose 129 mg/dl Telemetry reviewed: Atrial fibrillation with occasional high rates Assessment and Plan 1. Atrial fibrillation: No symptoms. Overall rate control appears to be adequate while he is in bed. His rates are up slightly, possibly due to some intravascular depletion. He has some high rates presumably with ambulation and activity. I think his becomes more active will have a better sense of his overall rate control. At this point I would not entertain re-initiated on any antiarrhythmic for rhythm control. 2. Hypoxia: He continues to improve clinically. He has had a very profound diuresis since his hospitalization and there is some concern now regarding intravascular depletion. His diuretics have been held. Will continue to monitor his output. I would suspect that any pulmonary vascular congestion has resolved given the profound diuresis he has had.
[2016-12-30] MEDS: ACETAMINOPHEN 325 MG TAB PO PRN (14:18)
[2016-12-30] MEDS: WARFARIN SOD 5 MG TAB PO SCH (16:06)
[2016-12-30] MEDS: POLYETHYLENE (MIRALAX) 17 GM PACK PO SCH ×2 (17:22→20:29)
[2016-12-30] MEDS: SENNA 8.6 MG TAB PO SCH (17:23)
--- NOTE | 2016-12-30 21:02 | Progress Note ---
Subjective Date of Service: Dec 30, 2016. Subjective Pt evaluation today including: conversation w/ patient, physical exam, chart review, lab review Pain: denies PO Intake: normal Voiding: kraft catheter in place tele with rate-controlled a. fib overnight feeling good breathing is not labored he is shocked "how much fluid" has been taken off with diuresis does not use O2 at home but continues to require such Problem List Medical Problems: (1) Acute renal failure Status: Acute (2) Atrial fibrillation with RVR Status: Acute (3) CHF (congestive heart failure) Status: Acute (4) Hypoxia Status: Acute (5) Leg edema Status: Acute (6) SOB (shortness of breath) Status: Acute Review of Systems Respiratory: No cough Cardiac: No chest pain Abdomen: + constipation, No pain Objective Vital Signs Date Time Temp Pulse Resp B/P (MAP) Pulse Ox O2 Delivery O2 Flow Rate FiO2 12/30/16 19:50 37.0 83 20 96/61 (73) 95 12/30/16 16:03 36.7 76 18 124/77 (93) 97 12/30/16 16:00 Nasal Cannula 2.0 12/30/16 12:00 Nasal Cannula 2.0 12/30/16 10:57 36.5 91 18 117/70 (86) 94 Nasal Cannula 2.5 12/30/16 08:00 Nasal Cannula 2.0 12/30/16 07:20 36.5 97 14 125/74 (91) 92 Nasal Cannula 2.0 12/30/16 04:41 36.3 83 12 96/73 (81) 94 BiPAP 12/30/16 04:00 94 BiPAP 40 12/30/16 00:18 36.9 84 22 104/77 (86) 95 BiPAP 40 12/30/16 00:00 95 BiPAP 40 Physical Exam General Appearance: no apparent distress, + obese ENT: pharynx normal Neck: + pertinent finding (unable to assess for JVD due to body habitus) Respiratory/Chest: no respiratory distress, no accessory muscle use, + rales ( minimal bases) Cardiovascular: no gallop, no murmur, + irregularly irregular Abdomen: normal bowel sounds, non tender, soft, no organomegaly, + hernia (x 2 - reducible) Extremities: no pedal edema Neurologic/Psychiatric: alert, oriented x 3 Skin: + pertinent finding (stasis changes b/l legs ) Laboratory Results Last 24 Hours Test 12/30/16 06:01 12/30/16 06:32 12/30/16 11:28 12/30/16 16:30 Prothrombin Time 16.8 SECONDS Prothromb Time International Ratio 1.5 Sodium Level 140 mmol/L Potassium Level 3.4 mmol/L Chloride Level 96 mmol/L Carbon Dioxide Level 39 mmol/L Anion Gap 5.0 mmol/L Blood Urea Nitrogen 34 mg/dl Creatinine 1.74 mg/dl Est Creatinine Clear Calc Drug Dose 75.9 ml/min Estimated GFR () 48.7 Estimated GFR (Non- 42.0 BUN/Creatinine Ratio 19.4 Random Glucose 118 mg/dl Calcium Level 8.7 mg/dl Magnesium Level 2.3 mg/dl Bedside Glucose 111 mg/dl 129 mg/dl 86 mg/dl Test 12/30/16 20:28 Bedside Glucose 123 mg/dl Assessment and Plan 61yo male: 1. acute (with probable chronic) hypoxic/hypercarbic resp failure - acute component improving. Will need to assess for BIPAP at HS and O2 during the day prior to discharge. 2. acute/chronic diastolic CHF - improving with remarkable 40-45 pound diuresis. I believe he is likely approaching euvolemia. Agree with cutting back diuretics. BMP am. 3. acute kidney injury in setting of baseline CKD, stage uncertain - BMP in am. nephrology continues to follow. baseline may be about 1.7. 4. morbid obesity with BMI 48 5. a. fib - rates controlled with beta edwin. Cont coumadin; daily INR. 6. hypokalemia - replace, BMP AM. 7. suspected obesity-hypoventilation syndrome / RANDY - needs formal sleep study in future. 8. constipation - add senna with miralax. if tele stable overnight can likely tx to med/surg tomorrow PT, OT evals Continued [facility] stay due to: multiple IV medications needed Discharge planning: uncertain
[2016-12-31] VITALS (11 sets, daily range): BP systolic 94–132; BP diastolic 57–82; PULSE 73–97; TEMP 36.5–36.7; O2SAT 91–98
[2016-12-31 07:09] LABS: BASO % 0.2 %; BASO ABS # 0.02 K/uL (0-0.2); COMPLETE YES; EOS % 3.1 %; HEMATOCRIT 41.8 % (42-52); IG% 0.6 %; LYMPH % 14.5 %; LYMPH ABS # 1.29 K/uL (1.2-3.4); MEAN CELL VOLUME 90.9 fL (80-100); MEAN CORPUSCULAR HEMOGLOBIN 28.5 pg (25-34); MEAN CORPUSCULAR HGB CONC 31.3 g/dl (32-36); MEAN PLATELET VOLUME 9.4 fL (7.4-10.4); MONO % 8.1 %; NEUT % 73.5 %; PLATELET COUNT 193 K/uL (130-400); WHITE BLOOD COUNT 8.91 K/uL (4.8-10.8)
[2016-12-31 07:28] LABS: INR 1.5 (0.9-1.1); PROTHROMBIN TIME (PATIENT) 16.1 SECONDS (9.0-12.0)
[2016-12-31 07:44] LABS: BUN/CREATININE RATIO 23.5 (10-20); CALCIUM 9.1 mg/dl (8.5-10.1); CREATININE 1.9 mg/dl (0.60-1.40); POTASSIUM 3.6 mmol/L (3.5-5.1)
[2016-12-31] MEDS: POLYETHYLENE (MIRALAX) 17 GM PACK PO SCH ×2 (08:54→20:16)
[2016-12-31] MEDS: DILTIAZEM HCL 120 MG ER CAP PO SCH (08:55)
[2016-12-31] MEDS: SENNA 8.6 MG TAB PO SCH (08:55)
[2016-12-31] MEDS: ASCORBIC ACID 500 MG TAB PO SCH (08:55)
[2016-12-31] MEDS: FLINTSTONES COMPLETE CHEWABLE TAB PO SCH (08:55)
[2016-12-31] MEDS: FEXOFENADINE HCL 180 MG TAB PO SCH (08:55)
[2016-12-31] MEDS: GLIMEPIRIDE 2 MG TAB PO SCH (08:56)
[2016-12-31] MEDS: OXYBUTYNIN CHLORIDE 5 MG TAB PO SCH ×2 (08:56→20:16)
[2016-12-31] MEDS: PANTOprazole SOD 40 MG TAB PO SCH (08:56)
[2016-12-31] MEDS: CALCIUM 600MG + VIT D 400 IU TAB PO SCH (08:56)
[2016-12-31] MEDS: AcetaZOLAMIDE 250 MG TAB PO SCH ×2 (08:56→20:11)
[2016-12-31] MEDS: METOPROLOL TARTRATE 50 MG TAB PO SCH ×2 (08:57→20:17)
[2016-12-31] MEDS: NYSTATIN POWDER 15GM BTL EXT SCH ×2 (08:57→20:18)
[2016-12-31] MEDS: POTASSIUM CHLORIDE 20 MEQ TABCR PO SCH ×2 (08:57→20:14)
--- NOTE | 2016-12-31 09:41 | Progress Note ---
Subjective Date of Service: Dec 31, 2016. Subjective Pt evaluation today including: conversation w/ patient, physical exam, chart review, lab review, review of inpatient medication list Pain: none PO Intake: normal Voiding: kraft catheter in place a fib rates controlled on tele feels good no complaints Problem List Medical Problems: (1) Acute renal failure Status: Acute (2) Atrial fibrillation with RVR Status: Acute (3) CHF (congestive heart failure) Status: Acute (4) Hypoxia Status: Acute (5) Leg edema Status: Acute (6) SOB (shortness of breath) Status: Acute Review of Systems Constitutional: No fever Respiratory: No shortness of breath Cardiac: No chest pain, No orthopnea, No edema Abdomen: No pain Objective Vital Signs Date Time Temp Pulse Resp B/P (MAP) Pulse Ox O2 Delivery O2 Flow Rate FiO2 12/31/16 07:30 CPAP 40 12/31/16 07:08 36.7 97 15 108/74 (85) 93 CPAP 12/31/16 05:51 82 98 40 12/31/16 04:30 36.6 92 19 114/71 (85) 93 BiPAP 30 12/31/16 04:00 BiPAP 40 12/31/16 00:15 36.6 85 20 119/72 (88) 97 BiPAP 12/31/16 00:00 BiPAP 40 12/30/16 22:08 90 98 40 12/30/16 20:00 Nasal Cannula 2.0 12/30/16 19:50 37.0 83 20 96/61 (73) 95 12/30/16 16:03 36.7 76 18 124/77 (93) 97 12/30/16 16:00 Nasal Cannula 2.0 12/30/16 12:00 Nasal Cannula 2.0 12/30/16 10:57 36.5 91 18 117/70 (86) 94 Nasal Cannula 2.5 Physical Exam General Appearance: no apparent distress, + obese ENT: pharynx normal Neck: no JVD Respiratory/Chest: lungs clear, no respiratory distress, no accessory muscle use, + decreased breath sounds (bases) Cardiovascular: no gallop, no murmur, + irregularly irregular Abdomen: normal bowel sounds, non tender, soft, no organomegaly, + hernia (2 large hernias - reducible) Extremities: no pedal edema Neurologic/Psychiatric: alert, oriented x 3 Skin: + pertinent finding (stasis changes b/l shins) Laboratory Results Last 24 Hours Test 12/30/16 11:28 12/30/16 16:30 12/30/16 20:28 12/31/16 06:41 Bedside Glucose 129 mg/dl 86 mg/dl 123 mg/dl 118 mg/dl Test 12/31/16 06:44 White Blood Count 8.91 K/uL Red Blood Count 4.60 M/uL Hemoglobin 13.1 g/dL Hematocrit 41.8 % Mean Corpuscular Volume 90.9 fL Mean Corpuscular Hemoglobin 28.5 pg Mean Corpuscular Hemoglobin Concent 31.3 g/dl Platelet Count 193 K/uL Mean Platelet Volume 9.4 fL Neutrophils (%) (Auto) 73.5 % Lymphocytes (%) (Auto) 14.5 % Monocytes (%) (Auto) 8.1 % Eosinophils (%) (Auto) 3.1 % Basophils (%) (Auto) 0.2 % Neutrophils # (Auto) 6.55 K/uL Lymphocytes # (Auto) 1.29 K/uL Monocytes # (Auto) 0.72 K/uL Eosinophils # (Auto) 0.28 K/uL Basophils # (Auto) 0.02 K/uL RDW Standard Deviation 50.5 fL RDW Coefficient of Variation 15.3 % Immature Granulocyte % (Auto) 0.6 % Immature Granulocyte # (Auto) 0.05 K/uL Prothrombin Time 16.1 SECONDS Prothromb Time International Ratio 1.5 Sodium Level 139 mmol/L Potassium Level 3.6 mmol/L Chloride Level 98 mmol/L Carbon Dioxide Level 36 mmol/L Anion Gap 5.0 mmol/L Blood Urea Nitrogen 45 mg/dl Creatinine 1.90 mg/dl Est Creatinine Clear Calc Drug Dose 69.5 ml/min Estimated GFR () 43.7 Estimated GFR (Non- 37.7 BUN/Creatinine Ratio 23.5 Random Glucose 107 mg/dl Calcium Level 9.1 mg/dl Assessment and Plan 61yo male: 1. acute (with probable chronic) hypoxic/hypercarbic resp failure - acute component resolved. Will need to assess for BIPAP at HS and O2 needs at discharge. plan for overnight oximetry study tonight with AM ABG tomorrow AM. 2. acute/chronic diastolic CHF - remarkable 40-45 pound diuresis. BUN/Cr rising - stop lasix. Likely on the dry side today. Appreciate cardiology consultation. BMP am. 3. acute kidney injury in setting of baseline CKD, stage uncertain - BMP in am. nephrology continues to follow. baseline may be about 1.7. Creatinine today 1.9. 4. morbid obesity with BMI 48 5. a. fib - rates controlled with beta edwin. Cont coumadin; daily INR. 6. hypokalemia - replaced & resolved. 7. suspected obesity-hypoventilation syndrome / RANDY - needs formal sleep study in future. 8. constipation - senna with miralax. tx to med/surg today d/c swapnil PT, OT evals pending but suspect he can likely go home d/c tomorrow? Discharge planning: uncertain
--- NOTE | 2016-12-31 10:02 | Pulmonology Progress Note ---
Pulmonary Progress Note Date of Service Dec 31, 2016. Attending Dr. Richardson Subjective Patient seen and examined this morning. He states that he is feeling much better. Ready to go home. He is amazed at the amount of urine he has diuresed Tolerating BIPAP at night. Objective Vital signs reviewed. 25L liters negative since admission. down 22kg. General: Morbidly obese. Currently on nasal cannula O2 2 liters Head: Normocephalic, Atraumatic. ENT: PERRLA, No discharge, EOMI, Sclera normal Neck: Normal ROM. Trachea midline. No stridor Respiratory: Improved aeration today. Fine crackles at the bilateral bases. Cardiovascular: Regular rate Abdomen: Truncal obesity Extremities: Edema of bilateral lower extremities which appears to be slightly improved. Neuro: Alert. CN II-XII grossly intact. Sensation and motor function grossly intact. Psych: Mood and affect are normal. Labs reviewed. CO2 36, Cr 1.6--> 1.7-->1.9 Imaging reviewed. Medications reviewed. Assessment & Plan Acute hypoxic hypercapnic respiratory failure-improving Morbid obesity Obstructive sleep apnea Obesity hypoventilation syndrome Atrial fibrillation on anticoagulation Supratherapeutic INR-resolved Fluid overload-improved Acute on chronic renal failure-improving Diastolic CHF Diabetes type 2 Patient shows continued improvement from a respiratory standpoint. He is overall feeling better. Ready to go home. He is tolerating BIPAP well at night. With supplemental nasal canula during the day. The patient very likely has RANDY and OHS, and will therefore need continued BiPAP at night as stated above. He will need a polysomnogram as an outpatient and will need follow up with Dr. Davidson or Anali Naranjo PA-C in the sleep department. He will also need PFTs as outpatient. Prior to discharge from the hospital, recommend that the patient have an overnight pulse oximetry study completed to assess his oxygen level while sleeping. He will also need an ABG the next morning after nocturnal pulse oximetry. Continue with OT/PT. I will sign off case today. Please contact me if you have any other questions or concerns. Data Medications: Current Inpatient Medications Medications (Trade) Dose Ordered Sig/Rhea Route Start Time Stop Time Status Last Admin Dose Admin Diltiazem HCl (Dilacor Xr Cap) 120 mg DAILY PO 12/26/16 09:00 01/25/17 08:59 12/31/16 08:55 120 MG Fexofenadine HCl (Anju Tab) 180 mg DAILY PO 12/26/16 09:00 01/25/17 08:59 12/31/16 08:55 180 MG Glimepiride (Amaryl Tab) 2 mg QDB PO 12/26/16 07:30 01/25/17 07:29 12/31/16 08:56 2 MG Metoprolol Tartrate (Lopressor Tab) 50 mg BID PO 12/25/16 21:00 01/24/17 20:59 12/31/16 08:57 50 MG Oxybutynin Chloride (Ditropan Tab) 5 mg BID PO 12/25/16 21:00 01/24/17 20:59 12/31/16 08:56 5 MG Ascorbic Acid (Vitamin C Tab) 500 mg DAILY PO 12/26/16 09:00 01/25/17 08:59 12/31/16 08:55 500 MG Calcium/Vitamin D (Caltrate Plus Tab) 1 tab DAILY PO 12/26/16 09:00 01/25/17 08:59 12/31/16 08:56 1 TAB Cyanocobalamin (Vitamin B-12 Inj) 1,000 mcg Q60D@0900 IM 01/18/17 09:00 02/17/17 08:59 Pantoprazole Sodium (Protonix Tab) 40 mg QAM PO 12/26/16 09:00 01/25/17 08:59 12/31/16 08:56 40 MG Multivitamins (Flintstones Complete Tab) 1 tab QAM PO 12/26/16 09:00 01/25/17 08:59 12/31/16 08:55 1 TAB Nystatin (Mycostatin Powder) 1 appln BID EXT 12/25/16 21:00 01/24/17 20:59 12/31/16 08:57 1 APPLN Acetaminophen (Tylenol Tab) 650 mg Q4H PRN PO 12/26/16 23:00 01/25/17 22:59 12/30/16 14:18 650 MG Morphine Sulfate (MoRPHine SULFATE INJ) 2 mg Q4H PRN IV 12/27/16 09:45 01/10/17 09:44 12/27/16 17:38 2 MG Acetazolamide (Diamox Tab) 250 mg BID PO 12/29/16 21:00 01/01/17 09:01 12/31/16 08:56 250 MG Potassium Chloride (Klor-Con Tab) 40 meq BID PO 12/30/16 09:00 01/29/17 08:59 12/31/16 08:57 40 MEQ Senna (Senokot Tab) 17.2 mg QAM PO 12/30/16 16:00 01/29/17 15:59 12/31/16 08:55 17.2 MG Polyethylene (Miralax Powder Packet) 17 gm BID PO 12/30/16 16:00 01/29/17 15:59 12/31/16 08:54 17 GM Warfarin Sodium (Coumadin Tab) 7.5 mg DAILY@16 PO 12/31/16 16:00 01/27/17 15:59 Vital Signs: Date Time Temp Pulse Resp B/P (MAP) Pulse Ox O2 Delivery O2 Flow Rate FiO2 12/31/16 07:30 CPAP 40 12/31/16 07:08 36.7 97 15 108/74 (85) 93 CPAP 12/31/16 05:51 82 98 40 12/31/16 04:30 36.6 92 19 114/71 (85) 93 BiPAP 30 12/31/16 04:00 BiPAP 40 12/31/16 00:15 36.6 85 20 119/72 (88) 97 BiPAP 12/31/16 00:00 BiPAP 40 12/30/16 22:08 90 98 40 12/30/16 20:00 Nasal Cannula 2.0 12/30/16 19:50 37.0 83 20 96/61 (73) 95 12/30/16 16:03 36.7 76 18 124/77 (93) 97 12/30/16 16:00 Nasal Cannula 2.0 12/30/16 12:00 Nasal Cannula 2.0 12/30/16 10:57 36.5 91 18 117/70 (86) 94 Nasal Cannula 2.5 Laboratory Results: Last 24 Hours Test 12/30/16 11:28 12/30/16 16:30 12/30/16 20:28 12/31/16 06:41 Bedside Glucose 129 mg/dl 86 mg/dl 123 mg/dl 118 mg/dl Test 12/31/16 06:44 White Blood Count 8.91 K/uL Red Blood Count 4.60 M/uL Hemoglobin 13.1 g/dL Hematocrit 41.8 % Mean Corpuscular Volume 90.9 fL Mean Corpuscular Hemoglobin 28.5 pg Mean Corpuscular Hemoglobin Concent 31.3 g/dl Platelet Count 193 K/uL Mean Platelet Volume 9.4 fL Neutrophils (%) (Auto) 73.5 % Lymphocytes (%) (Auto) 14.5 % Monocytes (%) (Auto) 8.1 % Eosinophils (%) (Auto) 3.1 % Basophils (%) (Auto) 0.2 % Neutrophils # (Auto) 6.55 K/uL Lymphocytes # (Auto) 1.29 K/uL Monocytes # (Auto) 0.72 K/uL Eosinophils # (Auto) 0.28 K/uL Basophils # (Auto) 0.02 K/uL RDW Standard Deviation 50.5 fL RDW Coefficient of Variation 15.3 % Immature Granulocyte % (Auto) 0.6 % Immature Granulocyte # (Auto) 0.05 K/uL Prothrombin Time 16.1 SECONDS Prothromb Time International Ratio 1.5 Sodium Level 139 mmol/L Potassium Level 3.6 mmol/L Chloride Level 98 mmol/L Carbon Dioxide Level 36 mmol/L Anion Gap 5.0 mmol/L Blood Urea Nitrogen 45 mg/dl Creatinine 1.90 mg/dl Est Creatinine Clear Calc Drug Dose 69.5 ml/min Estimated GFR () 43.7 Estimated GFR (Non- 37.7 BUN/Creatinine Ratio 23.5 Random Glucose 107 mg/dl Calcium Level 9.1 mg/dl
--- NOTE | 2016-12-31 10:52 | Cardiology Follow-Up ---
Subjective Date of Service: Dec 31, 2016. Pt evaluation today including: conversation w/ patient, conversation w/ family , physical exam, chart review, review of studies History of Present Illness Patient claims to be feeling well. He was up in a chair again yesterday and has ambulated around his room. He is anxious to go home. He states that he is comfortable with his breathing. He has not had any symptoms of chest discomfort. He has not had any palpitations. He denies any dizziness when ambulating Social History Smoking Status: Never Smoker History of Alcohol Use: Yes (2-3 beer every other weekend) Review of Systems Respiratory: No shortness of breath Cardiac: No chest pain, No orthopnea, No edema Objective Vital Signs Past 12 Hours Date Time Temp Pulse Resp B/P (MAP) Pulse Ox O2 Delivery O2 Flow Rate FiO2 12/31/16 10:45 36.7 88 24 95 2.5 12/31/16 10:43 36.7 88 24 94/57 (69) 95 Nasal Cannula 2.5 12/31/16 07:30 CPAP 40 12/31/16 07:08 36.7 97 15 108/74 (85) 93 CPAP 12/31/16 05:51 82 98 40 12/31/16 04:30 36.6 92 19 114/71 (85) 93 BiPAP 30 12/31/16 04:00 BiPAP 40 12/31/16 00:15 36.6 85 20 119/72 (88) 97 BiPAP 12/31/16 00:00 BiPAP 40 Last Recorded Weight-Kilograms: 170.000 Physical Exam The patient is alert and oriented. Mood and affect appeared normal. He answered all questions appropriately. Morbidly obese HEENT: Pupils are equal and reactive to light and accommodation. Extraocular movements are intact. The sclerae are anicteric. Neuro: Cranial nerves intact Lungs: Lung apices appear clear. There are no rales appreciated. The upper airway sounds. There is no wheezing. Cardiac: Heart demonstrates an irregular rate and rhythm. Normal S1 and S2. No murmurs on examination. Abdomen: Obese, nontender Pulses: The patient has palpable radial pulses bilaterally that are equal in intensity Extremities: There was no evidence of hypoperfusion. There is no cyanosis or clubbing. Moderate bilateral peripheral edema. Skin: He has multiple rashes on his lower extremities. Data Laboratory Results: Last 24 Hours Test 12/30/16 11:28 12/30/16 16:30 12/30/16 20:28 12/31/16 06:41 Bedside Glucose 129 mg/dl 86 mg/dl 123 mg/dl 118 mg/dl Test 12/31/16 06:44 White Blood Count 8.91 K/uL Red Blood Count 4.60 M/uL Hemoglobin 13.1 g/dL Hematocrit 41.8 % Mean Corpuscular Volume 90.9 fL Mean Corpuscular Hemoglobin 28.5 pg Mean Corpuscular Hemoglobin Concent 31.3 g/dl Platelet Count 193 K/uL Mean Platelet Volume 9.4 fL Neutrophils (%) (Auto) 73.5 % Lymphocytes (%) (Auto) 14.5 % Monocytes (%) (Auto) 8.1 % Eosinophils (%) (Auto) 3.1 % Basophils (%) (Auto) 0.2 % Neutrophils # (Auto) 6.55 K/uL Lymphocytes # (Auto) 1.29 K/uL Monocytes # (Auto) 0.72 K/uL Eosinophils # (Auto) 0.28 K/uL Basophils # (Auto) 0.02 K/uL RDW Standard Deviation 50.5 fL RDW Coefficient of Variation 15.3 % Immature Granulocyte % (Auto) 0.6 % Immature Granulocyte # (Auto) 0.05 K/uL Prothrombin Time 16.1 SECONDS Prothromb Time International Ratio 1.5 Sodium Level 139 mmol/L Potassium Level 3.6 mmol/L Chloride Level 98 mmol/L Carbon Dioxide Level 36 mmol/L Anion Gap 5.0 mmol/L Blood Urea Nitrogen 45 mg/dl Creatinine 1.90 mg/dl Est Creatinine Clear Calc Drug Dose 69.5 ml/min Estimated GFR () 43.7 Estimated GFR (Non- 37.7 BUN/Creatinine Ratio 23.5 Random Glucose 107 mg/dl Calcium Level 9.1 mg/dl Telemetry reviewed: Atrial fibrillation with relatively good rate control Assessment and Plan 1. Atrial fibrillation: No symptoms. His heart rate has been slowly rising during this hospitalization. This may be due to an element of intravascular depletion. He has not have any markedly elevated rates yesterday and does claim to have ambulated around his room. I think we will have a better sense of his overall rate control when he is more ambulatory. His blood pressure is relatively low but perhaps we could increase his diltiazem if needed. He will continue his warfarin indefinitely 2. Hypoxia: He is much more comfortable requiring less oxygen. He has had a very aggressive diuresis over the course of hospitalization. Even on a lower dose of diuretics yesterday he had a significant output. I think he will need very little daily diuretic at the time of discharge perhaps 40 milligrams orally daily. Additional recommendations are mentioned in the pulmonology notes. Patient is being evaluated for sleep apnea and nocturnal hypoxia.
--- NOTE | 2016-12-31 11:26 | Nephrology Progress Note ---
Nephrology Progress Note Date of Service Dec 31, 2016. Chief Complaint F/U for KINJAL Subjective Vincent was seen and examined in his room this morning. He has been overall feeling well, denies any shortness of breath or chest pain, has been participating in physical therapy. Has been off of Lasix since yesterday, continues to be net negative, more than 1 liter per 24 hours. Vital sign stable. Renal function continues to slowly worsen creatinine 1.9 this morning Review of Systems A complete review of systems was performed. Pertinent positives are noted above. All other systems are negative. Vital Signs Last 8 Hrs Date Time Temp Pulse Resp B/P (MAP) Pulse Ox O2 Delivery O2 Flow Rate FiO2 12/31/16 07:30 CPAP 40 12/31/16 07:08 36.7 97 15 108/74 (85) 93 CPAP 12/31/16 05:51 82 98 40 12/31/16 04:30 36.6 92 19 114/71 (85) 93 BiPAP 30 12/31/16 04:00 BiPAP 40 Last Recorded Weight Weight (Kilograms): 170.000 Physical Exam GENERAL: Middle-aged male , AAA x 3, pleasant, morbidly obese not in any distress. NECK: Supple, no JVD. RESPIRATORY: Normal breathing efforts, no accessory muscle use, clear to auscultation bilaterally, no wheezes or rales. CARDIOVASCULAR: S1, S2 normal, rate rhythm regular. EXTREMITY: No lower extremity edema NEURO: speech fluent. 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[employer]) Laboratory Results Past 24 Hours 12/31/16 06:44 Red Blood Count 4.60, Mean Corpuscular Volume 90.9, Mean Corpuscular Hemoglobin 28.5, Mean Corpuscular Hemoglobin Concent 31.3, Mean Platelet Volume 9.4, Neutrophils (%) (Auto) 73.5, Lymphocytes (%) (Auto) 14.5, Monocytes (%) (Auto) 8.1, Eosinophils (%) (Auto) 3.1, Basophils (%) (Auto) 0.2, Neutrophils # (Auto) 6.55, Lymphocytes # (Auto) 1.29, Monocytes # (Auto) 0.72, Eosinophils # (Auto) 0.28, Basophils # (Auto) 0.02 12/31/16 06:44 Test 12/30/16 11:28 12/30/16 16:30 12/30/16 20:28 12/31/16 06:41 Bedside Glucose 129 mg/dl (70-99) 86 mg/dl (70-99) 123 mg/dl (70-99) 118 mg/dl (70-99) Test 12/31/16 06:44 White Blood Count 8.91 K/uL (4.8-10.8) Red Blood Count 4.60 M/uL (4.7-6.1) Hemoglobin 13.1 g/dL (14.0-18.0) Hematocrit 41.8 % (42-52) Mean Corpuscular Volume 90.9 fL (80-100) Mean Corpuscular Hemoglobin 28.5 pg (25-34) Mean Corpuscular Hemoglobin Concent 31.3 g/dl (32-36) Platelet Count 193 K/uL (130-400) Mean Platelet Volume 9.4 fL (7.4-10.4) Neutrophils (%) (Auto) 73.5 % Lymphocytes (%) (Auto) 14.5 % Monocytes (%) (Auto) 8.1 % Eosinophils (%) (Auto) 3.1 % Basophils (%) (Auto) 0.2 % Neutrophils # (Auto) 6.55 K/uL (1.4-6.5) Lymphocytes # (Auto) 1.29 K/uL (1.2-3.4) Monocytes # (Auto) 0.72 K/uL (0.11-0.59) Eosinophils # (Auto) 0.28 K/uL (0-0.5) Basophils # (Auto) 0.02 K/uL (0-0.2) RDW Standard Deviation 50.5 fL (36.4-46.3) RDW Coefficient of Variation 15.3 % (11.5-14.5) Immature Granulocyte % (Auto) 0.6 % Immature Granulocyte # (Auto) 0.05 K/uL (0.00-0.02) Prothrombin Time 16.1 SECONDS (9.0-12.0) Prothromb Time International Ratio 1.5 (0.9-1.1) Anion Gap 5.0 mmol/L (3-11) Est Creatinine Clear Calc Drug Dose 69.5 ml/min Estimated GFR () 43.7 Estimated GFR (Non- 37.7 BUN/Creatinine Ratio 23.5 (10-20) Calcium Level 9.1 mg/dl (8.5-10.1) Allergies Coded Allergies: No Known Allergies (Unverified , 12/25/16) Medications Current Inpatient Medications Medications (Trade) Dose Ordered Sig/Rhea Route Start Time Stop Time Status Last Admin Dose Admin Diltiazem HCl (Dilacor Xr Cap) 120 mg DAILY PO 12/26/16 09:00 01/25/17 08:59 12/31/16 08:55 120 MG Fexofenadine HCl (Anju Tab) 180 mg DAILY PO 12/26/16 09:00 01/25/17 08:59 12/31/16 08:55 180 MG Glimepiride (Amaryl Tab) 2 mg QDB PO 12/26/16 07:30 01/25/17 07:29 12/31/16 08:56 2 MG Metoprolol Tartrate (Lopressor Tab) 50 mg BID PO 12/25/16 21:00 01/24/17 20:59 12/31/16 08:57 50 MG Oxybutynin Chloride (Ditropan Tab) 5 mg BID PO 12/25/16 21:00 01/24/17 20:59 12/31/16 08:56 5 MG Ascorbic Acid (Vitamin C Tab) 500 mg DAILY PO 12/26/16 09:00 01/25/17 08:59 12/31/16 08:55 500 MG Calcium/Vitamin D (Caltrate Plus Tab) 1 tab DAILY PO 12/26/16 09:00 01/25/17 08:59 12/31/16 08:56 1 TAB Cyanocobalamin (Vitamin B-12 Inj) 1,000 mcg Q60D@0900 IM 01/18/17 09:00 02/17/17 08:59 Pantoprazole Sodium (Protonix Tab) 40 mg QAM PO 12/26/16 09:00 01/25/17 08:59 12/31/16 08:56 40 MG Multivitamins (Flintstones Complete Tab) 1 tab QAM PO 12/26/16 09:00 01/25/17 08:59 12/31/16 08:55 1 TAB Nystatin (Mycostatin Powder) 1 appln BID EXT 12/25/16 21:00 01/24/17 20:59 12/31/16 08:57 1 APPLN Acetaminophen (Tylenol Tab) 650 mg Q4H PRN PO 12/26/16 23:00 01/25/17 22:59 12/30/16 14:18 650 MG Morphine Sulfate (MoRPHine SULFATE INJ) 2 mg Q4H PRN IV 12/27/16 09:45 01/10/17 09:44 12/27/16 17:38 2 MG Acetazolamide (Diamox Tab) 250 mg BID PO 12/29/16 21:00 01/01/17 09:01 12/31/16 08:56 250 MG Potassium Chloride (Klor-Con Tab) 40 meq BID PO 12/30/16 09:00 01/29/17 08:59 12/31/16 08:57 40 MEQ Senna (Senokot Tab) 17.2 mg QAM PO 12/30/16 16:00 01/29/17 15:59 12/31/16 08:55 17.2 MG Polyethylene (Miralax Powder Packet) 17 gm BID PO 12/30/16 16:00 01/29/17 15:59 12/31/16 08:54 17 GM Warfarin Sodium (Coumadin Tab) 7.5 mg DAILY@16 PO 12/31/16 16:00 01/27/17 15:59 Impression (1) Atrial fibrillation (2) Acute renal insufficiency (3) CKD (chronic kidney disease), stage III (4) CHF (congestive heart failure) Mr. Hank Monzon is a morbidly obese 61-year-old male with non- oliguric KINJAL. KINJAL consistent with cardiorenal syndrome in the setting of right heart failure. Good diuresis with furosemide. Richardson remains intact. . On admission creatinine was 2.3 has been variable, improved to 1.6 however again has been slightly worsening, creatinine this morning was 1.9. Urine analysis notable for 10-30 WBC, no RBC, granular casts noted. KINJAL is consistent with ATN and prerenal azotemia. No specific nephrotoxic medications identified. He has been diuresing aggressively with Lasix 80 twice a day, net negative was a around 5-7 liters, diuretics was decreased and stopped on 12/30/2016. Continues to be net negative. Had another episode of acute kidney injury in November when creatinine was variable from 1.7-1.8. Prior lab was from 2015 when creatinine was around 1.3-1.4. It is possible that over last 1 year renal function has been slowly worsening and in fact creatinine staying around 1.5- 1.6 as baseline. Medical history notable for recent diagnosis of new atrial fibrillation. Converted with flecainide. Blood culture 1 of 2 positive for strep. Recommendations --Continue to hold lasix, aim for net even --on Diamox 250 mg twice a day for 3 days -- Document I/O's -- Monitor metabolic profile daily
[2016-12-31] MEDS: WARFARIN SOD 7.5 MG TAB PO SCH (16:22)
[2016-12-31] MEDS: ACETAMINOPHEN 325 MG TAB PO PRN (23:22)
[2017-01-01 07:12] LABS: ALLEN TEST POS (POS); ARTERIAL BLOOD GAS BASE EXCESS 6.5 mEq/L (-9-1.8); ARTERIAL BLOOD GAS HCO3 32 mmol/L (19-24); ARTERIAL BLOOD GAS PO2 65 mm/Hg (80-95); ARTERIAL BLOOD GAS pH 7.43 (7.35-7.45); O2 ADMINISTRATION ROOM AIR
[2017-01-01 07:21] VITALS: BP 133/86; PULSE 81; TEMP 36.4; O2SAT 92
[2017-01-01 07:45] LABS: BUN/CREATININE RATIO 21.4 (10-20); CALCIUM 8.9 mg/dl (8.5-10.1); CREATININE 1.96 mg/dl (0.60-1.40); POTASSIUM 4.1 mmol/L (3.5-5.1)
[2017-01-01] MEDS: AcetaZOLAMIDE 250 MG TAB PO SCH (08:23)
[2017-01-01] MEDS: FEXOFENADINE HCL 180 MG TAB PO SCH (08:24)
[2017-01-01] MEDS: NYSTATIN POWDER 15GM BTL EXT SCH ×2 (08:24→20:42)
[2017-01-01] MEDS: SENNA 8.6 MG TAB PO SCH (08:24)
[2017-01-01] MEDS: METOPROLOL TARTRATE 50 MG TAB PO SCH ×2 (08:24→20:42)
[2017-01-01] MEDS: POTASSIUM CHLORIDE 20 MEQ TABCR PO SCH ×2 (08:25→20:41)
[2017-01-01] MEDS: FLINTSTONES COMPLETE CHEWABLE TAB PO SCH (08:25)
[2017-01-01] MEDS: DILTIAZEM HCL 120 MG ER CAP PO SCH (08:26)
[2017-01-01] MEDS: ASCORBIC ACID 500 MG TAB PO SCH (08:26)
[2017-01-01] MEDS: PANTOprazole SOD 40 MG TAB PO SCH (08:26)
[2017-01-01] MEDS: CALCIUM 600MG + VIT D 400 IU TAB PO SCH (08:26)
[2017-01-01] MEDS: OXYBUTYNIN CHLORIDE 5 MG TAB PO SCH ×2 (08:27→20:42)
[2017-01-01] MEDS: POLYETHYLENE (MIRALAX) 17 GM PACK PO SCH ×2 (08:27→20:00)
[2017-01-01] MEDS: GLIMEPIRIDE 2 MG TAB PO SCH (08:27)
[2017-01-01 08:30] VITALS: O2SAT 92
--- NOTE | 2017-01-01 11:51 | Nephrology Progress Note ---
Nephrology Progress Note Date of Service Jan 01, 2017. Chief Complaint KINJAL, hypertension Subjective Mr. Monzon was seen & examined in his hospital room this morning. He reports that he has had a brisk diuresis in reponse to IV diuretic therapy. His weight has dropped 20 kg. His breathing is markedly improved and his LE edema has nearly resolved. As an outpatient Mr. Monzon had been on Furosemide 20 mg daily. Previously his Aunt had been preparing his meals. She recently and he has now been eating mostly prepackaged food or dining at [employer]. Review of Systems Constitutional: No fever Cardiovascular: No chest pain Respiratory: No dyspnea at rest Abdomen: No pain, No nausea, No vomiting Extremities: No leg edema A complete review of systems was performed. Pertinent positives are noted above. All other systems are negative. Vital Signs Last 8 Hrs Date Time Temp Pulse Resp B/P (MAP) Pulse Ox O2 Delivery O2 Flow Rate FiO2 01/01/17 08:30 92 Room Air 01/01/17 07:21 36.4 81 20 133/86 (102) 92 Room Air Last Recorded Weight Weight (Kilograms): 171.200 Physical Exam General Appearance: no apparent distress Head: normocephalic, atraumatic Eyes: PERRL, EOMI Neck: + pertinent finding (short, thick. Unable to assess for JVD) Respiratory/Chest: lungs clear, no respiratory distress Cardiovascular: regular rate, rhythm Abdomen/GI: + pertinent finding (obese. Soft, nontender. Distant bowel sounds ) Extremities/Musculoskelatal: + pertinent finding (trace pretibial pitting edema. 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) Laboratory Results Past 24 Hours 01/01/17 06:55 Test 12/31/16 17:07 12/31/16 19:51 01/01/17 06:55 01/01/17 07:40 Bedside Glucose 89 mg/dl (70-99) 110 mg/dl (70-99) 113 mg/dl (70-99) Arterial Blood pH 7.43 (7.35-7.45) Arterial Blood Partial Pressure CO2 49 mmHg (35-46) Arterial Blood Partial Pressure O2 65 mm/Hg (80-95) Arterial Blood HCO3 32 mmol/L (19-24) Arterial Blood Oxygen Saturation 93.0 % (90-95) Arterial Blood Base Excess 6.5 mEq/L (-9-1.8) Arterial Blood Gas Delivery ROOM AIR Randell Test POS (POS) Anion Gap 7.0 mmol/L (3-11) Est Creatinine Clear Calc Drug Dose 67.6 ml/min Estimated GFR () 42.1 Estimated GFR (Non- 36.4 BUN/Creatinine Ratio 21.4 (10-20) Calcium Level 8.9 mg/dl (8.5-10.1) Chemistry Specimen Hemolysis Test 01/01/17 11:18 Bedside Glucose 140 mg/dl (70-99) Allergies Coded Allergies: No Known Allergies (Unverified , 12/25/16) Medications Current Inpatient Medications Medications (Trade) Dose Ordered Sig/Rhea Route Start Time Stop Time Status Last Admin Dose Admin Diltiazem HCl (Dilacor Xr Cap) 120 mg DAILY PO 12/26/16 09:00 01/25/17 08:59 01/01/17 08:26 120 MG Fexofenadine HCl (Anju Tab) 180 mg DAILY PO 12/26/16 09:00 01/25/17 08:59 01/01/17 08:24 180 MG Glimepiride (Amaryl Tab) 2 mg QDB PO 12/26/16 07:30 01/25/17 07:29 01/01/17 08:27 2 MG Metoprolol Tartrate (Lopressor Tab) 50 mg BID PO 12/25/16 21:00 01/24/17 20:59 01/01/17 08:24 50 MG Oxybutynin Chloride (Ditropan Tab) 5 mg BID PO 12/25/16 21:00 01/24/17 20:59 01/01/17 08:27 5 MG Ascorbic Acid (Vitamin C Tab) 500 mg DAILY PO 12/26/16 09:00 01/25/17 08:59 01/01/17 08:26 500 MG Calcium/Vitamin D (Caltrate Plus Tab) 1 tab DAILY PO 12/26/16 09:00 01/25/17 08:59 01/01/17 08:26 1 TAB Cyanocobalamin (Vitamin B-12 Inj) 1,000 mcg Q60D@0900 IM 01/18/17 09:00 02/17/17 08:59 Pantoprazole Sodium (Protonix Tab) 40 mg QAM PO 12/26/16 09:00 01/25/17 08:59 01/01/17 08:26 40 MG Multivitamins (Flintstones Complete Tab) 1 tab QAM PO 12/26/16 09:00 01/25/17 08:59 01/01/17 08:25 1 TAB Nystatin (Mycostatin Powder) 1 appln BID EXT 12/25/16 21:00 01/24/17 20:59 01/01/17 08:24 1 APPLN Acetaminophen (Tylenol Tab) 650 mg Q4H PRN PO 12/26/16 23:00 01/25/17 22:59 12/31/16 23:22 650 MG Morphine Sulfate (MoRPHine SULFATE INJ) 2 mg Q4H PRN IV 12/27/16 09:45 01/10/17 09:44 12/27/16 17:38 2 MG Potassium Chloride (Klor-Con Tab) 40 meq BID PO 12/30/16 09:00 01/29/17 08:59 01/01/17 08:25 40 MEQ Senna (Senokot Tab) 17.2 mg QAM PO 12/30/16 16:00 01/29/17 15:59 01/01/17 08:24 17.2 MG Polyethylene (Miralax Powder Packet) 17 gm BID PO 12/30/16 16:00 01/29/17 15:59 01/01/17 08:27 17 GM Warfarin Sodium (Coumadin Tab) 7.5 mg DAILY@16 PO 12/31/16 16:00 01/27/17 15:59 12/31/16 16:22 7.5 MG Impression (1) Atrial fibrillation (2) Acute renal insufficiency (3) CKD (chronic kidney disease), stage III (4) CHF (congestive heart failure) Mr. Hank Monzon is a morbidly obese 61-year-old male with non- oliguric KINJAL. KINJAL consistent with cardiorenal syndrome in the setting of right heart failure. Good diuresis with furosemide. Richardson remains intact. On admission creatinine was 2.3 has been variable, improved to 1.6 however again has been slightly worsening, creatinine this morning was 1.9. Urine analysis notable for 10-30 WBC, no RBC, granular casts noted. KINJAL is consistent with ATN and prerenal azotemia. No specific nephrotoxic medications identified. He has been diuresing aggressively with Lasix 80 twice a day. Diuretics were stopped on 12/30/2016. Continues to be net negative. Medical history notable for recent diagnosis of new atrial fibrillation. Converted with flecainide. Recommendations VOLUME OVERLOAD: -- Corrected -- Continue to hold Lasix. Patient continues to diurese on his own. Prehospital dose was Furosemide 20 mg each morning -- Continue Diamox to correct metabolic alkalosis -- Discussed low Na diet w/ patient today. Will consult dietitian to provide education ACUTE KIDNEY INJURY: -- Hold diuretic -- Monitor PRP -- Will recheck urine sediment -- Will consider renal US if kidney function fails to improve w/ the above measures
--- NOTE | 2017-01-01 13:36 | Hospitalist Progress Note ---
Hospitalist Progress Note Date of Service Jan 01, 2017. Subjective Pt evaluation today including: conversation w/ patient, physical exam, lab review, review of studies, review of inpatient medication list Voiding: no voiding problems Patient sitting in bedside chair. Eating and drinking OK. Ambulating around the room without difficulty. Patient denies any fever, chills, sweats, lightheadedness, dizziness, vision changes, CP, palpitations, edema, SOB, wheezing, cough, abdominal pain, nausea, vomiting, diarrhea, urinary symptoms, melena, numbness/tingling, weakness, muscle/joint pain, anxiety/depression, active bleeding, or new skin discoloration/changes. Medications Current Inpatient Medications Medications (Trade) Dose Ordered Sig/Rhea Route Start Time Stop Time Status Last Admin Dose Admin Diltiazem HCl (Dilacor Xr Cap) 120 mg DAILY PO 12/26/16 09:00 01/25/17 08:59 01/01/17 08:26 120 MG Fexofenadine HCl (Anju Tab) 180 mg DAILY PO 12/26/16 09:00 01/25/17 08:59 01/01/17 08:24 180 MG Glimepiride (Amaryl Tab) 2 mg QDB PO 12/26/16 07:30 01/25/17 07:29 01/01/17 08:27 2 MG Metoprolol Tartrate (Lopressor Tab) 50 mg BID PO 12/25/16 21:00 01/24/17 20:59 01/01/17 08:24 50 MG Oxybutynin Chloride (Ditropan Tab) 5 mg BID PO 12/25/16 21:00 01/24/17 20:59 01/01/17 08:27 5 MG Ascorbic Acid (Vitamin C Tab) 500 mg DAILY PO 12/26/16 09:00 01/25/17 08:59 01/01/17 08:26 500 MG Calcium/Vitamin D (Caltrate Plus Tab) 1 tab DAILY PO 12/26/16 09:00 01/25/17 08:59 01/01/17 08:26 1 TAB Cyanocobalamin (Vitamin B-12 Inj) 1,000 mcg Q60D@0900 IM 01/18/17 09:00 02/17/17 08:59 Pantoprazole Sodium (Protonix Tab) 40 mg QAM PO 12/26/16 09:00 12/7/17 08:59 01/01/17 08:26 40 MG Multivitamins (Flintstones Complete Tab) 1 tab QAM PO 12/26/16 09:00 01/25/17 08:59 01/01/17 08:25 1 TAB Nystatin (Mycostatin Powder) 1 appln BID EXT 12/25/16 21:00 01/24/17 20:59 01/01/17 08:24 1 APPLN Acetaminophen (Tylenol Tab) 650 mg Q4H PRN PO 12/26/16 23:00 01/25/17 22:59 12/31/16 23:22 650 MG Morphine Sulfate (MoRPHine SULFATE INJ) 2 mg Q4H PRN IV 12/27/16 09:45 01/10/17 09:44 12/27/16 17:38 2 MG Potassium Chloride (Klor-Con Tab) 40 meq BID PO 12/30/16 09:00 01/29/17 08:59 01/01/17 08:25 40 MEQ Senna (Senokot Tab) 17.2 mg QAM PO 12/30/16 16:00 01/29/17 15:59 01/01/17 08:24 17.2 MG Polyethylene (Miralax Powder Packet) 17 gm BID PO 12/30/16 16:00 01/29/17 15:59 01/01/17 08:27 17 GM Warfarin Sodium (Coumadin Tab) 7.5 mg DAILY@16 PO 12/31/16 16:00 01/27/17 15:59 12/31/16 16:22 7.5 MG Objective Vital Signs Date Time Temp Pulse Resp B/P (MAP) Pulse Ox O2 Delivery O2 Flow Rate FiO2 01/01/17 08:30 92 Room Air 01/01/17 07:21 36.4 81 20 133/86 (102) 92 Room Air 01/01/17 00:00 Room Air 12/31/16 22:58 36.5 73 20 132/82 (99) 92 Room Air 12/31/16 21:15 91 Room Air 12/31/16 20:00 Nasal Cannula 3.0 12/31/16 15:42 36.6 84 20 115/75 (88) 98 Nasal Cannula 2.0 12/31/16 15:00 95 Nasal Cannula 2.0 Physical Exam General Appearance: no apparent distress, + obese Eyes: normal inspection, PERRL ENT: hearing grossly normal Neck: supple Respiratory/Chest: lungs clear, no respiratory distress, no accessory muscle use Cardiovascular: + irregularly irregular (rate controlled ) Abdomen: normal bowel sounds, non tender, soft Extremities: no pedal edema, no calf tenderness, + pertinent finding (chronic stasis changes to bilateral lower extremities ) Neurologic/Psychiatric: alert, normal mood/affect, oriented x 3 Skin: normal color, warm/dry, no rash Laboratory Results Last 24 Hours Test 12/31/16 17:07 12/31/16 19:51 01/01/17 06:55 01/01/17 07:40 Bedside Glucose 89 mg/dl 110 mg/dl 113 mg/dl Arterial Blood pH 7.43 Arterial Blood Partial Pressure CO2 49 mmHg Arterial Blood Partial Pressure O2 65 mm/Hg Arterial Blood HCO3 32 mmol/L Arterial Blood Oxygen Saturation 93.0 % Arterial Blood Base Excess 6.5 mEq/L Arterial Blood Gas Delivery ROOM AIR Randell Test POS Sodium Level 136 mmol/L Potassium Level 4.1 mmol/L Chloride Level 98 mmol/L Carbon Dioxide Level 31 mmol/L Anion Gap 7.0 mmol/L Blood Urea Nitrogen 42 mg/dl Creatinine 1.96 mg/dl Est Creatinine Clear Calc Drug Dose 67.6 ml/min Estimated GFR () 42.1 Estimated GFR (Non- 36.4 BUN/Creatinine Ratio 21.4 Random Glucose 117 mg/dl Calcium Level 8.9 mg/dl Chemistry Specimen Hemolysis Test 01/01/17 11:18 Bedside Glucose 140 mg/dl Assessment and Plan 61 y/o male: Acute (with probable chronic) hypoxic/hypercarbic respiratory failure- acute component resolved, suspected obesity-hypoventilation syndrome/RANDY: - O2 protocol- now on RA - Will need BIPAP HS at discharge -- ABG and overnight pulse ox completed- requires PFTs prior to getting BiPAP - if PFTs not completed in patient, will be discharged on O2 NC HS and follow- up outpatient for sleep study/PFTs - Pulmonary consulted, appreciate recommendations Acute on chronic diastolic CHF- RESOLVED: - Treated w/ IV Lasix- now holding Lasix due to KINJAL - Monitored I&Os and daily weights- significant diuresis around 40-45lbs - ECHO completed- reviewed - Cardiology consulted, appreciate recommendations KINJAL on CKD stage III- baseline Cr ~1.7: - Hold nephrotoxic agents and renally dose medications - Nephrology following -- Follow PRP, check UA, consider renal US if no improvement in Cr. Morbid obesity with BMI 48 A. fib- rate controlled: - Flecainide discontinued per cardiology recommendations - Continue Coumadin- follow PT/INR and adjust dosage PRN for INR goal of 2-3 - Continue Lopressor 50 mg BID and Diltiazem 120 mg daily Hypokalemia- RESOLVED: Continue KCL supplement, follow PRP and replace PRN T2DM- CONTROLLED: Continue Glimepiride 2 mg daily Constipation: Continue Senna and MiraLAX GERD: Protonix while inpatient- resume Prilosec at discharge DVT prophylaxis: Coumadin Dispo: Discharge to home once medically stable- hopefully within the next 1-2 days- CM and PT/OT following
[2017-01-01 15:25] VITALS: BP 123/71; PULSE 80; TEMP 36.7; O2SAT 92
[2017-01-01 15:54] LABS: URINE APPEARANCE CLOUDY (CLEAR); URINE BILIRUBIN NEG (NEG); URINE COLOR YELLOW; URINE EPITHELIAL CELL AUTO 20-30 /lpf (0-5); URINE NITRITE POS (NEG); URINE PH 8.5 (4.5-7.5); URINE SPECIFIC GRAVITY 1.019 (1.000-1.030); UROBILINOGEN POS (NEG)
[2017-01-01 15:58] LABS: MANUAL MICROSCOPIC REQUIRED? NO; REVIEW REQ? NO; SULFASALICYLIC ACID NEG (NEG)
[2017-01-01] MEDS: WARFARIN SOD 7.5 MG TAB PO SCH (16:22)
[2017-01-01 20:00] VITALS: O2SAT 92
[2017-01-01 22:43] VITALS: PULSE 66; O2SAT 97
[2017-01-02] VITALS (7 sets, daily range): BP systolic 99–133; BP diastolic 68–79; PULSE 70–88; TEMP 36.3–36.5; O2SAT 92–97
[2017-01-02 06:10] LABS: HEMATOCRIT 43.5 % (42-52); MEAN CORPUSCULAR HEMOGLOBIN 27.6 pg (25-34); MEAN CORPUSCULAR HGB CONC 30.3 g/dl (32-36); MEAN PLATELET VOLUME 9.7 fL (7.4-10.4); PLATELET COUNT 193 K/uL (130-400); RED BLOOD COUNT 4.78 M/uL (4.7-6.1); WHITE BLOOD COUNT 7.92 K/uL (4.8-10.8)
[2017-01-02 06:43] LABS: CALCIUM 8.6 mg/dl (8.5-10.1); CREATININE 1.99 mg/dl (0.60-1.40); POTASSIUM 4.2 mmol/L (3.5-5.1)
[2017-01-02] MEDS: METOPROLOL TARTRATE 50 MG TAB PO SCH (07:59)
[2017-01-02] MEDS: OXYBUTYNIN CHLORIDE 5 MG TAB PO SCH (07:59)
[2017-01-02] MEDS: PANTOprazole SOD 40 MG TAB PO SCH (08:00)
[2017-01-02] MEDS: FLINTSTONES COMPLETE CHEWABLE TAB PO SCH (08:00)
[2017-01-02] MEDS: DILTIAZEM HCL 120 MG ER CAP PO SCH (08:00)
[2017-01-02] MEDS: FEXOFENADINE HCL 180 MG TAB PO SCH (08:00)
[2017-01-02] MEDS: ASCORBIC ACID 500 MG TAB PO SCH (08:00)
[2017-01-02] MEDS: CALCIUM 600MG + VIT D 400 IU TAB PO SCH (08:00)
[2017-01-02] MEDS: POTASSIUM CHLORIDE 20 MEQ TABCR PO SCH (08:01)
[2017-01-02] MEDS: NYSTATIN POWDER 15GM BTL EXT SCH (08:02)
[2017-01-02] MEDS: SENNA 8.6 MG TAB PO SCH (08:02)
[2017-01-02] MEDS: POLYETHYLENE (MIRALAX) 17 GM PACK PO SCH (08:02)
[2017-01-02] MEDS: GLIMEPIRIDE 2 MG TAB PO SCH (08:02)
[2017-01-02] MEDS ORDERED: LEVOFLOXACIN CONSULT ACTIVE PRN (09:45)
[2017-01-02 09:48] LABS: INR 1.7 (0.9-1.1); PROTHROMBIN TIME (PATIENT) 18.8 SECONDS (9.0-12.0)
[2017-01-02] MEDS ORDERED: CEFTRIAXONE SOD INJ 1 GM in DEXTROSE 5% ADD-VANTAGE 50ML 50 ML IV SCH (10:00)
--- NOTE | 2017-01-02 10:30 | Nephrology Progress Note ---
Nephrology Progress Note Date of Service Jan 02, 2017. Chief Complaint KINJAL, hypertension Subjective Mr. Monzon was seen & examined in his hospital room this morning. He reports that he is breathing comfortably on room air. His leg edema has markedly improved. He hopes to return home soon. Mr. Monzon did speak to the dietitian. He is able to voice the importance of reading food labels, avoiding fast food and limiting total sodium intake to 1500 mg per day or less. Review of Systems Constitutional: No fever Cardiovascular: No chest pain Respiratory: No dyspnea at rest Abdomen: No pain, No nausea, No vomiting Extremities: No leg edema A complete review of systems was performed. Pertinent positives are noted above. All other systems are negative. Vital Signs Last 8 Hrs Date Time Temp Pulse Resp B/P (MAP) Pulse Ox O2 Delivery O2 Flow Rate FiO2 01/02/17 08:00 Room Air Nasal Cannula 01/02/17 07:23 36.5 82 20 114/77 (89) 92 Room Air Last Recorded Weight Weight (Kilograms): 170.500 Physical Exam General Appearance: no apparent distress Head: atraumatic Eyes: PERRL, EOMI Neck: no adenopathy Respiratory/Chest: lungs clear Cardiovascular: regular rate, rhythm Abdomen/GI: normal bowel sounds, non tender, soft Extremities/Musculoskelatal: + pertinent finding (trace pretibial edema) Neurologic/Psych: alert, oriented x 3 Family History FH: coronary artery disease Social History Smoking Status: Never smoker Smokeless Tobacco Use: No Alcohol Use: occasionally Drug Use: none Marital Status: single Housing Status: lives alone 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) Laboratory Results Past 24 Hours 01/02/17 05:36 01/02/17 05:36 Test 01/01/17 11:18 01/01/17 15:25 01/01/17 16:29 01/01/17 19:50 Bedside Glucose 140 mg/dl (70-99) 97 mg/dl (70-99) 115 mg/dl (70-99) Urine Color YELLOW Urine Appearance CLOUDY (CLEAR) Urine pH 8.5 (4.5-7.5) Urine Specific [place] 1.019 (1.000-1.030) Urine Protein NEG (NEG) Urine Glucose (UA) NEG (NEG) Urine Ketones NEG (NEG) Urine Occult Blood NEG (NEG) Urine Nitrite POS (NEG) Urine Bilirubin NEG (NEG) Urine Urobilinogen POS (NEG) Urine Leukocyte Esterase LARGE (NEG) Urine WBC (Auto) >30 /hpf (0-5) Urine RBC (Auto) 0-4 /hpf (0-4) Urine Hyaline Casts (Auto) 5-10 /lpf (0-5) Urine Epithelial Cells (Auto) 20-30 /lpf (0-5) Urine Bacteria (Auto) 4+ (NEG) Test 01/02/17 05:36 01/02/17 07:13 01/02/17 09:26 Red Blood Count 4.78 M/uL (4.7-6.1) Mean Corpuscular Volume 91.0 fL (80-100) Mean Corpuscular Hemoglobin 27.6 pg (25-34) Mean Corpuscular Hemoglobin Concent 30.3 g/dl (32-36) RDW Standard Deviation 50.5 fL (36.4-46.3) RDW Coefficient of Variation 15.3 % (11.5-14.5) Mean Platelet Volume 9.7 fL (7.4-10.4) Anion Gap 7.0 mmol/L (3-11) Est Creatinine Clear Calc Drug Dose 66.6 ml/min Estimated GFR () 41.4 Estimated GFR (Non- 35.7 BUN/Creatinine Ratio 20.0 (10-20) Calcium Level 8.6 mg/dl (8.5-10.1) Bedside Glucose 117 mg/dl (70-99) Prothrombin Time 18.8 SECONDS (9.0-12.0) Prothromb Time International Ratio 1.7 (0.9-1.1) Allergies Coded Allergies: No Known Allergies (Unverified , 12/25/16) Medications Current Inpatient Medications Medications (Trade) Dose Ordered Sig/Rhea Route Start Time Stop Time Status Last Admin Dose Admin Diltiazem HCl (Dilacor Xr Cap) 120 mg DAILY PO 12/26/16 09:00 01/25/17 08:59 01/02/17 08:00 120 MG Fexofenadine HCl (Anju Tab) 180 mg DAILY PO 12/26/16 09:00 01/25/17 08:59 01/02/17 08:00 180 MG Glimepiride (Amaryl Tab) 2 mg QDB PO 12/26/16 07:30 01/25/17 07:29 01/02/17 08:02 2 MG Metoprolol Tartrate (Lopressor Tab) 50 mg BID PO 12/25/16 21:00 01/24/17 20:59 01/02/17 07:59 50 MG Oxybutynin Chloride (Ditropan Tab) 5 mg BID PO 12/25/16 21:00 01/24/17 20:59 01/02/17 07:59 5 MG Ascorbic Acid (Vitamin C Tab) 500 mg DAILY PO 12/26/16 09:00 01/25/17 08:59 01/02/17 08:00 500 MG Calcium/Vitamin D (Caltrate Plus Tab) 1 tab DAILY PO 12/26/16 09:00 01/25/17 08:59 01/02/17 08:00 1 TAB Cyanocobalamin (Vitamin B-12 Inj) 1,000 mcg Q60D@0900 IM 01/18/17 09:00 02/17/17 08:59 Pantoprazole Sodium (Protonix Tab) 40 mg QAM PO 12/26/16 09:00 01/25/17 08:59 01/02/17 08:00 40 MG Multivitamins (Flintstones Complete Tab) 1 tab QAM PO 12/26/16 09:00 01/25/17 08:59 01/02/17 08:00 1 TAB Nystatin (Mycostatin Powder) 1 appln BID EXT 12/25/16 21:00 01/24/17 20:59 01/02/17 08:02 1 APPLN Acetaminophen (Tylenol Tab) 650 mg Q4H PRN PO 12/26/16 23:00 01/25/17 22:59 12/31/16 23:22 650 MG Morphine Sulfate (MoRPHine SULFATE INJ) 2 mg Q4H PRN IV 12/27/16 09:45 01/10/17 09:44 12/27/16 17:38 2 MG Potassium Chloride (Klor-Con Tab) 40 meq BID PO 12/30/16 09:00 01/29/17 08:59 01/02/17 08:01 40 MEQ Senna (Senokot Tab) 17.2 mg QAM PO 12/30/16 16:00 01/29/17 15:59 01/02/17 08:02 17.2 MG Polyethylene (Miralax Powder Packet) 17 gm BID PO 12/30/16 16:00 01/29/17 15:59 01/02/17 08:02 17 GM Warfarin Sodium (Coumadin Tab) 7.5 mg DAILY@16 PO 12/31/16 16:00 01/27/17 15:59 01/01/17 16:22 7.5 MG Levofloxacin (Levaquin Tab) 750 mg DAILY@11 PO 01/02/17 11:00 01/09/17 10:59 Levofloxacin (Consult) 1 ea UD PRN N/A 01/02/17 09:45 02/01/17 09:44 Impression (1) Acute renal insufficiency (2) CKD (chronic kidney disease), stage III (3) Atrial fibrillation (4) CHF (congestive heart failure) Mr. Hank Monzon is a morbidly obese 61-year-old male with non- oliguric KINJAL. KINJAL consistent with cardiorenal syndrome in the setting of right heart failure. Good diuresis with furosemide. Richardson remains intact. On admission creatinine was 2.3 has been variable, improved to 1.6 however again has been slightly worsening, creatinine this morning was 1.9. Urine analysis notable for 10-30 WBC, no RBC, granular casts noted. KINJAL is consistent with ATN and prerenal azotemia. No specific nephrotoxic medications identified. He has been diuresing aggressively with Lasix 80 twice a day. Diuretics were stopped on 12/30/2016. Continues to be net negative. Medical history notable for recent diagnosis of new atrial fibrillation. Converted with flecainide. Recommendations VOLUME OVERLOAD: -- Corrected -- Diamox stopped yesterday -- Low sodium diet reviewed w/ patient again today -- If discharge is anticipated, resume Furosemide 20 mg each morning in anticipation of high sodium outpatient diet ACUTE KIDNEY INJURY: -- Improving -- Monitor PRP -- Urinalysis: contaminated sample w/ numerous epithelial cells. Microscopy shows that casts have resolved. -- No indication for renal US at this time -- Patient indicates that he is anxious to return home. If discharge is anticipated please schedule hospital follow up appointment w/ Dr. Mina Marquez ( [facility] [phone]) in 1 - 2 weeks.
[2017-01-02] MEDS ORDERED: LEVOFLOXACIN 750 MG TAB PO SCH (11:00)
[2017-01-02] MEDS ORDERED: LVQ750 PO (11:27)
--- NOTE | 2017-01-02 13:12 | Discharge Instructions ---
Discharge Instructions Date of Service Jan 02, 2017. Admission Reason for Admission: Acute Renal Failure, Chf, Hypoxia Discharge Discharge Diagnosis / Problem: Acute renal failure; congestive heart failure; acute respiratory failure Discharge Goals Goal(s): Decrease discomfort, Improve function, Increase independence, Improve disease control, Improve nutritional status, Learn about illness, Diagnostic testing, Therapeutic intervention, Prevent Disease Progression Activity Recommendations Activity Limitations: resume your previous activity . Instructions / Follow-Up Instructions / Follow-Up Urinary tract infection: Take Levaquin 750 mg by mouth once daily until prescription is complete. It is important you take entire course of antibiotic. Obstructive sleep apnea: You now require BiPAP at night. However, this could not be completed prior to discharge. We have set up home O2 2L supplement to wear at night for the time being. Congestive heart failure: Resume Lasix 20 mg daily Follow a low sodium diet Atrial fibrillation: STOP Flecainide Resume all other regular home medications as prescribed Please follow-up with your PCP within 5-7 days Please follow-up with Nephrology in the next 1-2 weeks Follow-up with Pulmonary in the next 1-2 weeks Please follow-up/keep all of your subspecialty appointments Call your Primary Care doctor if any of the following symptoms or problems start or get worse: * Shortness of breath or difficulty breathing * Wake up at night short of breath * Chest pain * Cough * Swelling of your hands, feet, or legs * More fatigued or tired with your normal activity * Palpitations - sudden fast heart beats WEIGHT * Weigh yourself every morning after using the bathroom. * Use the same scale. * Wear the same amount of clothing. * Write your weight down on a chart. * Call your Primary Care doctor if you gain more than 2-3 pounds in 1-2 days. MEDICATIONS * Use this discharge instruction sheet for medication instructions. * Take your medications at the time your doctor ordered. * Do not skip a dose of your medicines. * If you miss a dose of medicine, take it as soon as possible, but DO NOT DOUBLE A DOSE. * Read your medicine information when you get home. * Know all of the side effects of your medicine. If in doubt, ask your pharmacist * Call your Primary Care doctor's office if you have any side effects. * Be sure all of your doctors know what medicine and herbs you take (including cold, flu, and herbal medicine). Take the following with you to your follow-up doctor appointments: * Weight Chart * Medication List * List of questions Do not drink excessive alcohol, beer or wine. Current Hospital Diet Patient's current hospital diet: Diabetes Type 2 Diet, AHA Diet (Heart Healthy) Discharge Diet Recommended Diet: AHA Diet (Heart Healthy), Low Sodium Diet (2gm Na), Diabetes Type 2 Diet Pending Studies Studies pending at discharge: no Laboratory Results Hemoglobin A1c Test 12/05/16 06:09 Range/Units Estimated Average Glucose 171 mg/dl Hemoglobin A1c 7.6 H 4.5-5.6 % Medical Emergencies . Who to Call and When: Call 911 or go to the Emergency Room if: * If at any time you feel your situation is an emergency * You have tightness or pain in your chest that does not go away with rest or Nitroglycerin * You are very short of breath even with rest . Non-Emergent Contact Non-Emergency issues call your: Primary Care Provider . . "Provider Documentation" section prepared by Luz Maria Hernández. . VTE Core Measure Inpt VTE Proph given/why not?: Warfarin (Coumadin)
--- NOTE | 2017-01-02 13:13 | Discharge Summary ---
Discharge Summary Date of Service Jan 02, 2017. Discharge Summary Admission Date: Dec 25, 2016 at 10:38 Discharge Date: Jan 02, 2017 Discharge Disposition: Home Principal Diagnosis: Acute on chronic CHF exacerbation Problems/Secondary Diagnoses: Acute (with probable chronic) hypoxic/hypercarbic respiratory failure suspected obesity-hypoventilation syndrome/RANDY Acute on chronic diastolic CHF KINJAL on CKD stage III Morbid obesity with BMI 48 A. fib Hypokalemia T2DM Constipation GERD Immunizations: Have You Had Influenza Vaccine: No History of Tetanus Vaccine?: No History of Pneumococcal: No History of Hepatitis B Vaccine: No Procedures: CHEST ONE VIEW PORTABLE HISTORY: 61 years-old Male EVALUATE RESPIRATORY DISTRESS.DYSPNEA acute respiratory distress COMPARISON: Chest radiograph 12/03/2016 TECHNIQUE: Portable upright AP view of the chest FINDINGS: Cardiac silhouette is moderately enlarged. Pulmonary vascular congestion is noted in addition to mild background interstitial coarsening. There are hazy patchy bibasilar alveolar opacities present without pneumothorax. Trace bilateral pleural effusions. The bones are grossly intact. IMPRESSION: 1. Cardiomegaly with mild pulmonary edema pattern and trace pleural effusions. 2. Bibasilar opacities suggest atelectasis or less likely pneumonia. The above report was generated using voice recognition software. It may contain grammatical, syntax or spelling errors. Electronically signed by: Benitez Zimmer M.D. 12/25/2016 8:53 AM Dictated Date/Time: 12/25/2016 8:52 AM The status of this report is Signed. Draft = Not yet reviewed or approved by Radiologist. Signed = Reviewed and approved by Radiologist. CHEST ONE VIEW PORTABLE CLINICAL HISTORY: hypoxia dyspnea COMPARISON STUDY: [id number] FINDINGS: Cardiomegaly. Diaphragms smooth. Small right pleural effusion. Findings of pulmonary edema versus congestive heart failure. All major vasculature is prominent. IMPRESSION: Pulmonary edema versus congestive heart failure. The above report was generated using voice recognition software. It may contain grammatical, syntax or spelling errors. Electronically signed by: Tanner Beltran M.D. 12/26/2016 4:30 PM Dictated Date/Time: 12/26/2016 4:30 PM The status of this report is Signed. Draft = Not yet reviewed or approved by Radiologist. Signed = Reviewed and approved by Radiologist. ECHOCARDIOGRAM: Interpretation Summary * Name: FREDDY MCNEIL Study Date: 12/27/2016 04:04 PM BP: 140/73 mmHg * Patient Location: .2E\S\E206\S\1 HR: 89 * : 1955 (M/d/yyyy) Gender: Male Height: 74 in * Age: 61 yrs Ethnicity: CA Weight: 416 lb * Ordering Physician: Humberto Vela * Referring Physician: Self, Referred * Performed By: Sneha Vargas RDCS * * Reason For Study: Congestive Heart Failure * BSA: 3.0 m2 * -- Conclusions -- * Limited views were obtained. * There is borderline concentric left ventricular hypertrophy. * Left ventricular systolic function is normal. * Borderline right ventricular enlargement. * The right ventricular systolic function is normal. * Right ventricular systolic pressure is normal. * Compared to study from 12/04/2016, there is no significant change Procedure Details * Limited views were obtained. Left Ventricle * The left ventricle is grossly normal size. * There is borderline concentric left ventricular hypertrophy. * Ejection Fraction = 50-55%. * Left ventricular systolic function is normal. Right Ventricle * Borderline right ventricular enlargement. * The right ventricular systolic function is normal. * The right ventricular systolic function is normal as assessed by tricuspid annular plane systolic excursion (TAPSE) (normal >1.5 cm). Atria * The left atrial size is normal. * Right atrial size is normal. Tricuspid Valve * There is trace tricuspid regurgitation. * Right ventricular systolic pressure is normal. Pericardium/Pleural * There is no pericardial effusion. Great Vessels * Normal inferior vena cava diameter and respiratory variation suggests normal central venous pressure. Consultations: Nephrology Cardiology Pulmonary Medication Reconciliation New Medications: Levofloxacin (Levofloxacin) 750 Mg Tab 750 MG PO DAILY@11 for 6 Days, #6 TAB Continued Medications: Ascorbic Acid (Vitamin C Adult Gummies 125 mg) 1 Chw Chw 1 TAB PO QAM Calcium W/ Vitamins D & K (Viactiv) 1 Chw Chw 1 TAB PO DAILY Cholecalciferol (Vitamin D) 400 Unit Tab 400 UNITS PO DAILY Cyanocobalamin (Vitamin B12) 3,000 Mcg/Ml Daniel 1000 MCG INJ Q2MOS Diltiazem Hcl (Diltiazem Hcl Er) 120 Mg Cap 120 MG PO DAILY for 30 Days, #30 TABS Fexofenadine Hcl (Anju) 180 Mg Tab 180 MG PO DAILY, TAB Furosemide (Lasix) 20 Mg Tab 20 MG PO QAM, TAB Glimepiride (Glimepiride) 2 Mg Tab 2 MG PO DAILY Metoprolol Tartrate (Lopressor) (Lopressor) 50 Mg Tab 50 MG PO BID for 30 Days, #60 TAB Omeprazole (Prilosec) 20 Mg Cap 20 MG PO QAM, CAP Oxybutynin Chloride (Oxybutynin Chloride) 5 Mg Tab 5 MG PO BID Pediatric Multiple Vitamins W/ (Flintstones Plus Iron) 1 Chw Chw 1 TAB PO DAILY Potassium Chloride (K-Tabs) 10 Meq Tab 10 MEQ PO DAILY Warfarin Sodium (Warfarin Sodium) 7.5 Mg Tab 7.5 MG PO DAILY, TAB Discontinued Medications: Flecainide Acetate (Flecainide Acetate) 100 Mg Tab 100 MG PO Q12 for 30 Days, #60 TAB Discharge Exam Review of Systems: Constitutional: No fever, No chills, No sweats, No weakness, No fatigue Eyes: No worsening of vision ENT: No hearing loss Respiratory: No cough, No sputum, No wheezing, No shortness of breath, No dyspnea on exertion, No dyspnea at rest, No hemoptysis Cardiovascular: No chest pain, No edema, No palpitations Abdomen: No pain, No nausea, No vomiting, No diarrhea, No constipation, No GI bleeding Musculoskeletal: No joint pain, No muscle pain, No swelling, No calf pain Genitourinary - Male: No hematuria, No dysuria Neurologic: No weakness, No numbness/tingling Psychiatric: No depression symptoms, No anxiety Endocrine: No fatigue Hematologic / Lymphatic: No abnormal bleeding/bruising Integumentary: No rash, No itch, No new/changing skin lesions Physical Exam: General Appearance: no apparent distress, + obese Eyes: normal inspection, PERRL ENT: hearing grossly normal Neck: supple Respiratory/Chest: lungs clear, no respiratory distress, no accessory muscle use, + decreased breath sounds (throughout all lung francis ) Cardiovascular: + irregularly irregular (rate controlled ) Abdomen / GI: normal bowel sounds, non tender, soft, + hernia Extremities: no calf tenderness, no pedal edema, + pertinent finding ( chronic stasis changes to bilateral lower extremities ) Neurologic/Psychiatric: alert, normal mood/affect, oriented x 3 Skin: normal color, warm/dry, no rash Hospital Course Admission H&P: Mr. Mcneil presents today with sob over the weekend. Per his cousin, he was short of breath while out at their family camp with increasing edema and orthopnea He also became very dizzy this morning. He does not wear oxygen at home. Patient was recently here 12/06 for a.fib RVR and cellulitis. He followed up with cardiology on the where his flecainide was increased. 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 leading to 45 days at [facility], A.fib, cellulitis right leg, diabetes mellitus II, DVT, RBBB, LAFB, GERD, Physical Exam Vital Signs Date Time Temp Pulse Resp B/P (MAP) Pulse Ox O2 Delivery O2 Flow Rate FiO2 12/25/16 08:35 72 97 60 12/25/16 08:24 98 BiPAP 6.0 60 12/25/16 08:05 72 12/25/16 08:01 97 Non-Rebreather 15.0 12/25/16 08:01 64 Room Air 12/25/16 08:01 36.9 74 28 129/64 64 Room Air General: disheveled with strong odor Eyes: normal inspection, PERLL Respiratory: chest non tender, coarse right base, no respiratory distress, no accessory muscle use, on bipap Cardiac: regular rate and rhythm, no rub or gallop, no murmur, no edema, no jvd GI/: active bowel sounds, no abd pain or tenderness, soft, non distended Extremities: normal range of motion, normal strength, non tender Neuro/Psych: drowsy but awakens with verbal stimulation and oriented x 3, normal mood and affect Skin: pale, reddened left lower extremity with scratches Hospital Course: 61 y/o male: Acute (with probable chronic) hypoxic/hypercarbic respiratory failure- acute component resolved, suspected obesity-hypoventilation syndrome/RANDY: - O2 protocol- now on RA - BIPAP HS -- ABG, overnight pulse ox, and PFTs completed while inpatient -- Setup with 2L O2 NC at discharge until BiPAP approved and setup - Pulmonary consulted, appreciate recommendations- follow-up outpatient Acute on chronic diastolic CHF- RESOLVED: - Treated w/ IV Lasix- now holding Lasix due to IKNJAL- resume Lasix 20 mg daily at discharge - Monitored I&Os and daily weights- significant diuresis around 40-45lbs - ECHO completed- reviewed - Discussed with patient about low sodium diet and monitoring daily weight - Cardiology consulted, appreciate recommendations KINJAL on CKD stage III- baseline Cr ~1.7: - Hold nephrotoxic agents and renally dose medications - Nephrology following, appreciate recommendations- follow-up with Dr. Marquez in 1- 2 weeks Morbid obesity with BMI 48- noted A. fib- rate controlled: - Flecainide discontinued per cardiology recommendations - Continue Coumadin- follow PT/INR and adjust dosage PRN for INR goal of 2-3- INR 1.7 at discharge, repeat INR in 2-3 days - Continue Lopressor 50 mg BID and Diltiazem 120 mg daily Hypokalemia- RESOLVED: Continue KCL supplement, follow PRP and replace PRN T2DM- CONTROLLED: Continue Glimepiride 2 mg daily Constipation: Continue Senna and MiraLAX GERD: Protonix while inpatient- resume Prilosec at discharge DVT prophylaxis: Coumadin Dispo: Discharge to home Total Time Spent: Greater than 30 minutes This includes examination of the patient, discharge planning, medication reconciliation, and communication with other providers. Discharge Instructions Please refer to the electronic Patient Visit Report (Discharge Instructions) for additional information. Follow-Up Please follow-up with your PCP within 5-7 days Please follow-up with Nephrology in 1-2 weeks Follow-up with Pulmonary in 1-2 weeks Please follow-up/keep all of your subspecialty appointments Additional Copies To Benitez Millan M.D.
[2017-01-02] MEDS: ACETAMINOPHEN 325 MG TAB PO PRN (14:20)
[2017-01-02] MEDS: WARFARIN SOD 7.5 MG TAB PO SCH (15:48)
--- NOTE | 2017-01-04 08:25 | PULMONARY FUNCTION TEST ---
CLINICAL DATA: 61-year-old male with a height of 74 inches and a weight of [address] Adams for evaluation of respiratory failure. Spirometry pre- and post-bronchodilator was performed. Pre-bronchodilator spirometry demonstrates severe restrictive lung disease. FVC was 49% of predicted. FEV1 was 50% of predicted. [id number] was 64% of predicted. There was no improvement after inhaled bronchodilator. IMPRESSION: Severe restrictive lung/ chest wall disease without improvement after inhaled bronchodilator. MTDD
[2017-01-18] MEDS ORDERED: CYANOCOBALAMIN 1000 MCG/ML VIAL IM SCH (09:00)
== END 2017-01-02 17:45 | disposition home or self-care (01) | DRG 291 ==
LOC: EDBD 07:53 → C.EDA 07:54 → C.2E 10:38 → ENRESERV 12:26 → C.2E 12-26 18:52 → EDBEDREQ 12-31 09:47 → ENRESERV 12-31 10:27 → C.4E 12-31 11:31
PROVIDERS: ADMIT Internal Medicine; ATTEND Internal Medicine
PROC: 5A09357 Assistance with Respiratory Ventilation, Less than 24 Consecutive Hours, Continuous Positive Airway Pressure (ICD-10-PCS; principal; 2016-12-25)
DX: I50.33 Acute on chronic diastolic (congestive) heart failure (principal); N17.0 Acute kidney failure with tubular necrosis; J96.22 Acute and chronic respiratory failure with hypercapnia; J96.21 Acute and chronic respiratory failure with hypoxia; E66.2 Morbid (severe) obesity with alveolar hypoventilation; Z68.42 Body mass index [BMI] 45.0-49.9, adult; I48.91 Unspecified atrial fibrillation; I45.4 Nonspecific intraventricular block; E87.6 Hypokalemia; E11.9 Type 2 diabetes mellitus without complications; N18.3 Chronic kidney disease, stage 3 (moderate); R79.89 Other specified abnormal findings of blood chemistry; M19.90 Unspecified osteoarthritis, unspecified site; Z98.84 Bariatric surgery status; Z90.49 Acquired absence of other specified parts of digestive tract; Z86.718 Personal history of other venous thrombosis and embolism; Z79.01 Long term (current) use of anticoagulants

== ENCOUNTER → 2017-04-16 | Outpatient (CLI) | payer OTHER ==
[~2017-04-16] MED LIST changes: -ALL180 PO; -AMOX1TAB43 PO; +CALC8.5C PO; +CHOL400T PO; -CHOLTAB3 PO; -DXY100 PO; +FEXO1TAB46 PO; -FLINTSTONES PO; +GLIM2TAB2 PO; -IRON PO; +LVQ750 PO; +PEDICHW44 PO; -POTA-327 PO; +POTA10TA PO; -TMB100 PO; -VIT D PO; -[UNRECOGNIZED DRUG - OTHER] PO
--- NOTE | 2017-04-17 06:28 | PAP/PSG TECHNICIAN REPORT ---
[facility] Sheet Ironworker Polysomnogram Report Study name: None Report date: 04/17/2017 Study date: 04/16/2017 Referring Physician: Anali Naranjo PA-C, PA-C Name: FREDDY MCNEIL Interpreting Physician: Erik Davidson D.O. Date of : 1955 Sheet Ironworker: NISHANT Preciado. Sex: Male Age: 61 StudyType: PSG Weight: 391 lbs 20 inches Height: 61 years, Height 6' 2" Neck Circum: BMI: 50.2 Medications: JUN 180 MG, WARFARIN SODIUM 7.5 MG, FUROSEMIDE 20 MG, POTASSIUM CHLORIDE ER 10 MEQ, PRILOSEC 20 MG, DILTIAZEM HCL ER 120 MG, METOPROLOL TARTRATE 50 MG, GLIMEPIRIDE 2 MG, OXYBUTYNIN CHLORIDE 5 MG, CYANOCOBALAMIN 1000 MCG/ML Patient History PATIENT HAS HISTORY OF RANDY, AFIB AND DIABETES. HE CURRENTLY WEARS BIPAP WITH OXYGEN AT NIGHT TIME. ALSO HAS HISTORY OF SNORING AND MORNING HEADACHES. HE HAS NOT HAD A SLEEP STUDY DONE IN MANY YEARS. HE GENERALLY SLEEPS IN A RECLINER CHAIR. HE IS HERE TODAY FOR AN EVALUATION FOR RANDY. ESS = 10 RM 7 Parameters Monitored NPSG: E1-M2, E2-M1, Fp1-M2, Fp2-M1, F3-M2, F4-M2, F4-M1, C3-M2, C4-M2, C4-M1, O1-M2, O2-M2, O2-M1, T3-M2, T4-M1, P3-M2, P4-M1, CHIN1, CHIN2, HR, EKG, Legs, PFLOW, SNOR, FLOW, CFLOW, Tidal Volume, THOR, ABDO, SpO2, PLTH, CPRESS, ETCO2 Wave, ETCO2, pH Sleep Architecture Sleep Stages Time at Lights Off 10:55:39 PM STAGES Time (min.) TST (%) Time at Lights On 5:28:09 AM Wake 261.5 -- Total Recording Time (TRT) 393.00 min. N1 35.0 27 Total Sleep Period (TSP) 381.0 min. N2 83.5 64 Total Sleep Time (TST) 131.0min. N3 0.0 0 Awake Time 262.0 min. REM 12.5 10 Wake after Sleep Onset 250.5 min. Sleep Efficiency (SE) 33 % Sleep Onset Latency (MARK) 11.0 min. Number of Stage 1 Shifts None Awakenings 40 Stage Changes 100 Number of REM periods 2 REM 12.5 10 REM Latency 341.0 min. NREM 118.5 90 Body Position Analysis Supine Right Left Side Prone Vertical Total Sleep Time (min.) 392.5 0.0 0.0 0.00 0.0 0.0 Total Sleep Time (%) 100% 0% 0% 0 0% N/A% Total Sleep Time REM (min.) 12.5 0.0 0.0 None 0.0 0.0 Total Sleep Time NREM (min.) 118.5 0.0 0.0 None 0.0 0.0 Intermittent Wake (min.) 261.5 0.0 0.0 None 0.0 0.0 Total Sleep Period (%) 100% None None None None None Arousals Myoclonus (PLM) * Events Count Index Events Count Index Spontaneous 34 16 Events Awake (PLMW) 85 19.5 Respiratory 6 2.7 Events Asleep w/ Arousal (PLMA) 10 4.6 PLM 10 5 Events Asleep w/o Arousal (PLMS) 120 55.0 Snoring 3 1 Total Asleep 130 59.5 Total 52 24 Total 215 33 Respiratory Analysis * CA OA MA CH H RERA Total Count 0 0 0 0 24 4 24 Index 0.0 0.0 0.0 0 11.0 2 12.8 Mean Duration 0.0 0.0 0.0 0.00 19.9 12.6 18.9 Longest Duration 0.0 0.0 0.0 0.00 0.0 13.2 39.2 Respiratory Event Summary Total Supine ~Supine Right Left Prone REM NREM Apneas Count 0 0 N/A N/A N/A N/A 0 0 Index 0.0 0 N/A N/A N/A N/A 0 0 Hypopneas (4% Desat) Count 24 24 N/A N/A N/A N/A 4 20 Index 11.0 11.0 N/A N/A N/A N/A 19.2 10.1 Apneas & All Hypopneas Count 24 24 N/A N/A N/A N/A 4 20 Index 11.0 11 N/A N/A N/A N/A 19.2 10.1 Respiratory Events (Apprentice Stylist+All Hyp+RERA) Count 24 28 N/A N/A N/A N/A 4 20 Index 12.8 13 N/A N/A N/A N/A 19.2 12.2 Respiratory Related Arousal Count 6 28 N/A N/A N/A N/A 0 6 Index 2.7 3 N/A N/A N/A N/A 0 3 Snoring Analysis Supine Right Left Prone REM NREM Total Snore duration 1.0 min Snores count 25 N/A N/A N/A 2 23 25 Snore mean duration 2.5 Sec Snores index 11 N/A N/A N/A 9.6 11.6 11.5 TST with snoring (%) 0.8% Desaturation Event Summary: Minimum %SpO2 Event Count Mean/Min/Max Duration(sec.) Desaturation Index % Time In Bed > 90 15 42.2 / 17.5 / 57.6 3.6 67.3 86 - 90 15 41.9 / 17.5 / 62.7 7.7 31.2 81 - 85 1 11.3 / 11.3 / 11.3 11.8 1.4 76 - 80 1 11.3 / 11.3 / 11.3 137.1 0.1 71 - 75 0 N/A 0.0 0.0 66 - 70 0 N/A 0.0 0.0 61 - 65 0 N/A 0.0 0.0 56 - 60 0 N/A 0.0 0.0 51 - 55 0 N/A 0.0 0.0 < 50 0 N/A 0.0 0.0 Total REM NREM Awake <50% 0.0 min. 0.0 min. 0.0 min. 0.0 min. 51 - 60% 0.0 min. 0.0 min. 0.0 min. 0.0 min. 61 - 70% 0.0 min. 0.0 min. 0.0 min. 0.0 min. 71 - 80% 0.4 min. 0.0 min. 0.3 min. 0.2 min. 81 - 90% 121.8 min. 10.7 min. 71.9 min. 39.2 min. 91 - 100% 251.9 min. 1.8 min. 46.2 min. 203.9 min. Average 91 88 90 92 Minimum SpO2 77 83 78 77 Desaturation Event Index 4.1 19.2 9.1 1.1 # Desat. Events below 89% 23 4 16 3 Time(%) with Saturation below 89% 10.1 1.5 7.5 1.1 Time(min.) with Saturation below 89% 37.6 5.6 28.0 4.0 Time (mins) REM (mins) NREM (mins) % of TST SpO2 Below 90% 22 4 N18 42.4 SpO2 Below 88% 14 0 0 12 Heart Rate Analysis Min (bpm) Max (bpm) Average (bpm) Awake 65 281 96 NREM 69 108 90 REM 75 107 92 Overall 69 108 90 Supplemental O2 Values Minimum O2 level: None Value Start Time End Time Sheet Ironworker Comments Mr. Mcneil slept in the supine positions. Increased HR noted at times. Irregular EKG noted. Leg movements noted. No bruxism noted. Snoring was noted and scored as a 2 on a scale of 1 through 5. (0=no snoring, 5=snoring loud enough to be heard through a closed door or down the [address] way) Mr. Mcneil awoke to use the restroom 3 times during the night. Mr. Mcneil stated I did not sleep as well as I do when I am in my own bed. The final report will be interpreted and signed by a sleep physician. The completed physician report will then be placed in the patient medical record. Therapy (cm H2O) 0 TIB (min.) 392.5 TST (min.) 131.0 Sleep Onset (min.) 11.0 REM Onset From Sleep (min.) 341.0 Sleep Efficiency % 33 Wakefulness (%) 67 Wakefulness (min.) 262.0 NREM 1 (%) 27 NREM 1 (min.) 35.0 NREM 2 (%) 64 NREM 2 (min.) 83.5 NREM 3 (%) 0 NREM 3 (min.) 0.0 REM (%) 10 REM (min.) 12.5 # Arousals 52 Arousal Index 24 # Snore 25 Snore Index 11.5 AHI 11.0 AHI Supine 11 AHI Non-Supine N/A NREM AHI 10.1 REM AHI 19.2 RDI 12.8 # Obstructive Apnea 0 # Central Apnea 0 # Mixed Apnea 0 # Hypopneas 24 RERAs 4 Total Respiratory Events 28 Time Below SpO2 89% (min.) 33.6 Mean NREM SpO2 (%) 90 Mean REM SpO2 (%) 88 Mean Sleep SpO2 (%) 90 Min NREM SpO2 (%) 78 Min REM SpO2 (%) 83 Position Supine (min.) 392.5 Position Non-supine (min.) 0.0 LM Index Sleep 59.5 LM Index NREM 64.8 LM Index REM 9.6 Mean Heart Rate (bpm) 90 Min Heart Rate (bpm) 69
== END | disposition home or self-care (01) ==
LOC: C.NEUR 20:00
PROVIDERS: ATTEND Physician Assistant
DX: I48.91 Unspecified atrial fibrillation (principal); I50.30 Unspecified diastolic (congestive) heart failure; R60.9 Edema, unspecified; E66.2 Morbid (severe) obesity with alveolar hypoventilation; R06.83 Snoring

== ENCOUNTER 2019-02-24 09:01 | Observation (INO) ==
[2019-02-24 09:42] LABS: Basophils # (auto) 0.02 K/uL (0-0.2); Basophils % (auto) 0.2 %; Eosinophils # (auto) 0.11 K/uL (0-0.5); Hematocrit (blood only) 28.8 % (42-52); Immature Granulocytes # (auto) 0.09 K/uL (0.00-0.02); Immature Granulocytes % (auto) 0.8 %; Lymphocytes # (auto) 0.47 K/uL (1.2-3.4); Lymphocytes % (auto) 4.3 %; Mean Corpuscular Hemoglobin 27.9 pg (25-34); Mean Corpuscular Hgb Conc 31.3 g/dL (32-36); Mean Corpuscular Volume 89.2 fL (80-100); Mean Platelet Volume 8.5 fL (7.4-10.4); Monocytes # (auto) 0.97 K/uL (0.11-0.59); Neutrophils # (auto) 9.16 K/uL (1.4-6.5); Neutrophils % (auto) 84.7 %; Platelet Count 288 K/uL (130-400); RDW Coefficient of Variation 16.3 % (11.5-14.5); RDW Standard Deviation 52.8 fL (36.4-46.3); Red Blood Count 3.23 M/uL (4.7-6.1); White Blood Count 10.82 K/uL (4.8-10.8)
[2019-02-24 09:59] LABS: Prothrombin Time > 90.0 Seconds (9.0-12.0)
--- NOTE | 2019-02-24 09:59 | Emergency Department Note ---
History of Present Illness General Chief complaint: Illness Time Seen by Provider: 02/24/19 09:10 History of Present Illness Maximum Pain Intensity: 4 This 63-year-old male presents the ER via EMS with chief complaint of diffuse body aches that have been going on for the past few weeks but are getting worse. The patient states a are at different places on his body. The patient denies any chest pain or shortness of breath. He did have an appointment to see his PCP today but decided to come to the emergency room. The patient states that he tried doubling his potassium for a few days to see if this would help with the body aches but it did not. He also tried doubling his Lasix for a few days and that did not help. The patient states that he does have a history of Lyme's disease and feels similar. The patient denies any headache or dizziness or visual changes. The patient recently was hospitalized at [facility] for a kidney infection and then was sent to rehab for strengthening. He he returned to home 3 weeks ago. Home Medications Home Medications Medication Instructions Recorded Confirmed Type warfarin 7.5 mg tablet 7.5 mg PO .COMPLEX #30 tab 10/14/18 02/24/19 Rx ascorbic acid (vitamin C) [Vitamin 500 mg PO DAILY 01/03/19 02/24/19 History C] calcium-vitamin D3-vitamin K 1 tab PO DAILY 01/03/19 02/24/19 History [Viactiv] cholecalciferol (vitamin D3) 400 unit PO DAILY 01/03/19 02/24/19 History [Vitamin D3] fexofenadine [Anju Allergy] 180 mg PO DAILY 01/03/19 02/24/19 History glimepiride 2 mg PO QDB 01/03/19 02/24/19 History metoprolol tartrate 50 mg PO BID 01/03/19 02/24/19 History omeprazole magnesium [Prilosec OTC] 20 mg PO DAILY 01/03/19 02/24/19 History oxybutynin chloride 5 mg PO TID 01/03/19 02/24/19 History pediatric multivitamin no.49 1 tab PO DAILY 01/03/19 02/24/19 History [Flintstones Gummies] sennosides-docusate sodium 1 tab PO DAILY 01/03/19 02/24/19 History [Senna-S] diltiazem HCl 120 mg PO DAILY 02/24/19 02/24/19 History furosemide 20 mg PO DAILY 02/24/19 02/24/19 History potassium chloride 10 meq PO DAILY 02/24/19 02/24/19 History Allergies Allergy/AdvReac Type Severity Reaction Status Date / Time No Known Allergies Allergy Unverified 02/05/19 13:57 Past Med/Surg History Medical History Atrial fibrillation CHF (congestive heart failure) CKD (chronic kidney disease), stage III Kidney stones Morbid obesity with BMI of 50.0-59.9, adult Surgical History History of nephrostomy History of Abhijit-en-Y gastric bypass Social History Preferred Language: Faroese Communication Ability: Effective Carbon Grinder Required: No Beliefs That Will Affect Care: None marital status: Single Current Living Situation: Alone current occupational status: employed Feels Safe at Home: Yes Smoking Status: Never smoker Hx Alcohol Use: Yes Alcohol type: beer Hx Substance Use: No Review of Systems A total of 10 systems reviewed and were otherwise negative Physical Exam Vital Signs Vital Signs - 24 hr 02/24/19 09:03 02/24/19 09:51 02/24/19 10:00 Temperature 37 C Temperature Source Oral Pulse Rate 103 H 110 H 107 H Pulse Rate from SpO2 Sensor 111 H 97 H Pulse Rhythm Irregular Pulse Strength Normal Respiratory Rate 20 21 24 Respiratory Effort / Characteristics Non-Labored Spontaneous Respiratory Depth Normal Respiratory Pattern Regular Blood Pressure 123/66 120/61 92/64 L Blood Pressure Mean 85 70 73 Blood Pressure Position Sitting Pulse Oximetry 96 96 100 Oxygen Delivery Method Room Air Room Air Room Air Sepsis Recent Fever Within 48 Hours No Sepsis New/Unexplained Change in Mental Status No Sepsis Action Taken by Nursing No Action Required 02/24/19 10:30 02/24/19 11:00 02/24/19 12:11 Temperature Temperature Source Pulse Rate 100 H 99 H 109 H Pulse Rate from SpO2 Sensor 102 H 103 H 105 H Pulse Rhythm Pulse Strength Respiratory Rate 22 30 H 24 Respiratory Effort / Characteristics Respiratory Depth Respiratory Pattern Blood Pressure 115/61 108/56 L 124/43 L Blood Pressure Mean 85 73 103 Blood Pressure Position Pulse Oximetry 96 95 95 Oxygen Delivery Method Room Air Room Air Room Air Sepsis Recent Fever Within 48 Hours Sepsis New/Unexplained Change in Mental Status Sepsis Action Taken by Nursing GENERAL: 63-year-old morbidly obese male appears in no acute distress. He is sitting upright on the stretcher. EYES: PERRLA. EOMs intact. EARS: Canals clear. TMs without fluid level noted. MOUTH: Mucosa is dry. NECK: Supple, no lymphadenopathy noted. No carotid bruits noted. LUNGS: Clear auscultation without wheezes rales or rhonchi. CARDIAC: Irregular irregular rhythm without any murmur.. Pulses is full and equal throughout. ABDOMEN: Positive bowel sounds all 4 quadrants. Soft, nontender to palpation difficult to evaluate for organomegaly or masses secondary to patient's size. RECTAL: Anal sphincter tone intact. No internal masses noted. Stool guaiac was negative. SKIN: No abnormal bruising noted. There are multiple scabbed scratches noted on the bilateral lower legs. Skin is dry globally. LOWER EXTREMITIES: Bilateral 2+ pitting edema is noted. No erythema noted. Course Administered Medications Discontinued Medications Phytonadione 10 mg/ Sodium (Chloride) 51 mls @ 102 mls/hr IV ONE ONE Stop: 02/24/19 11:00 Last Infusion: 02/24/19 11:13 Dose: 0 mls/hr Documented by: [id number] Admin: 02/24/19 10:42 Dose: 102 mls/hr Documented by: [id number] Medical Decision Making Differential Diagnosis Rhabdo myelitis, dehydration, Lyme's disease Medical Records Attestation: I reviewed the patient's medical records. Home Medications Current Medication List: was personally reviewed by me Laboratory Data Attestation: I reviewed the patient's lab results. Result diagrams: 02/24/19 09:33 02/24/19 09:33 Lab Results 02/24/19 02/24/19 02/24/19 Range/Units 09:33 09:33 09:33 WBC 10.82 H (4.8-10.8) K/uL RBC 3.23 L (4.7-6.1) M/uL Hgb 9.0 L (14.0-18.0) g/dL Hct 28.8 L (42-52) % MCV 89.2 (80-100) fL MCH 27.9 (25-34) pg MCHC 31.3 L (32-36) g/dL RDW Std Deviation 52.8 H (36.4-46.3) fL RDW Coeff of Evan 16.3 H (11.5-14.5) % Plt Count 288 (130-400) K/uL MPV 8.5 (7.4-10.4) fL Immature Gran % (Auto) 0.8 % Neut % (Auto) 84.7 % Lymph % (Auto) 4.3 % [place] % (Auto) 9.0 % Eos % (Auto) 1.0 % Baso % (Auto) 0.2 % Immature Gran # (Auto) 0.09 H (0.00-0.02) K/uL Neut # (Auto) 9.16 H (1.4-6.5) K/uL Lymph # (Auto) 0.47 L (1.2-3.4) K/uL Candler # (Auto) 0.97 H (0.11-0.59) K/uL Eos # (Auto) 0.11 (0-0.5) K/uL Baso # (Auto) 0.02 (0-0.2) K/uL PT > 90.0 H (9.0-12.0) Seconds INR > 10.4 H* (0.9-1.1) Sodium 136 (136-145) mmol/L Potassium 4.3 (3.5-5.1) mmol/L Chloride 109 H (98-107) mmol/L Carbon Dioxide 26 (21-32) mmol/L Anion Gap 1.0 L (3-11) BUN 28 H (7-18) mg/dl Creatinine 1.97 H (0.6-1.4) mg/dl Est Cr Clr Drug Dosing 67.6 ml/min Est GFR ( Amer) 41.3 Est GFR (Non-Af Amer) 35.6 BUN/Creatinine Ratio 14.3 (10-20) Glucose 175 H (70-99) mg/dl Calcium 8.5 (8.5-10.1) mg/dl Magnesium 2.2 (1.8-2.4) mg/dl Total Bilirubin 0.9 (0.2-1) mg/dl AST 29 (15-37) U/L ALT 29 (12-78) U/L Alkaline Phosphatase 71 (45-117) U/L Total Creatine Kinase 275 (39-308) U/L Total Protein 7.6 (6.4-8.2) gm/dl Albumin 2.4 L (3.4-5.0) gm/dl Globulin 5.2 H (2.5-4.0) gm/dl Albumin/Globulin Ratio 0.5 L (0.9-2) Urine Color Urine Appearance (Clear) Urine pH (4.5-7.5) POC Urine pH (4.5-7.5) Ur Specific [place] (1.000-1.030) Urine Protein (Negative) POC Urine Protein (Negative) Urine Glucose (UA) (Negative) POC Ur Glucose (UA) (Normal) Urine Ketones (Negative) POC Urine Ketones (Negative) Urine Blood (Negative) POC Urine Blood (Negative) Urine Nitrite (Negative) POC Urine Nitrite (Negative) Urine Bilirubin (Negative) Urine Urobilinogen (Negative) Ur Leukocyte Esterase (Negative) POC U Leukocyte Esteras (Negative) Urine WBC (Auto) (0-5) /hpf Urine RBC (Auto) (0-4) /hpf U Hyaline Cast (Auto) (0-5) /lpf U Epithel Cells (Auto) (0-5) /lpf Urine Bacteria (Auto) (Negative) Ur Renal Epithelial Cell (0-5) /lpf Urine Yeast Lyme Disease IgG Ab (Negative) Lyme Disease IgM Ab (Negative) 02/24/19 02/24/19 02/24/19 Range/Units 09:34 11:15 11:17 WBC (4.8-10.8) K/uL RBC (4.7-6.1) M/uL Hgb (14.0-18.0) g/dL Hct (42-52) % MCV (80-100) fL MCH (25-34) pg MCHC (32-36) g/dL RDW Std Deviation (36.4-46.3) fL RDW Coeff of Evan (11.5-14.5) % Plt Count (130-400) K/uL MPV (7.4-10.4) fL Immature Gran % (Auto) % Neut % (Auto) % Lymph % (Auto) % Cand[place] % (Auto) % Eos % (Auto) % Baso % (Auto) % Immature Gran # (Auto) (0.00-0.02) K/uL Neut # (Auto) (1.4-6.5) K/uL Lymph # (Auto) (1.2-3.4) K/uL Cand[place] # (Auto) (0.11-0.59) K/uL Eos # (Auto) (0-0.5) K/uL Baso # (Auto) (0-0.2) K/uL PT (9.0-12.0) Seconds INR (0.9-1.1) Sodium (136-145) mmol/L Potassium (3.5-5.1) mmol/L Chloride (98-107) mmol/L Carbon Dioxide (21-32) mmol/L Anion Gap (3-11) BUN (7-18) mg/dl Creatinine (0.6-1.4) mg/dl Est Cr Clr Drug Dosing ml/min Est GFR ( Amer) Est GFR (Non-Af Amer) BUN/Creatinine Ratio (10-20) Glucose (70-99) mg/dl Calcium (8.5-10.1) mg/dl Magnesium (1.8-2.4) mg/dl Total Bilirubin (0.2-1) mg/dl AST (15-37) U/L ALT (12-78) U/L Alkaline Phosphatase (45-117) U/L Total Creatine Kinase (39-308) U/L Total Protein (6.4-8.2) gm/dl Albumin (3.4-5.0) gm/dl Globulin (2.5-4.0) gm/dl Albumin/Globulin Ratio (0.9-2) Urine Color Dark Yellow Urine Appearance Turbid A (Clear) Urine pH 5.5 (4.5-7.5) POC Urine pH 5 (4.5-7.5) Ur Specific [place] 1.014 (1.000-1.030) Urine Protein 2+ H (Negative) POC Urine Protein 2+ H (Negative) Urine Glucose (UA) Negative (Negative) POC Ur Glucose (UA) Normal (Normal) Urine Ketones Negative (Negative) POC Urine Ketones Negative (Negative) Urine Blood 3+ H (Negative) POC Urine Blood 250 H (Negative) Urine Nitrite Negative (Negative) POC Urine Nitrite Negative (Negative) Urine Bilirubin Negative (Negative) Urine Urobilinogen Negative (Negative) Ur Leukocyte Esterase 3+ H (Negative) POC U Leukocyte Esteras 2+ H (Negative) Urine WBC (Auto) >30 H (0-5) /hpf Urine RBC (Auto) >30 H (0-4) /hpf U Hyaline Cast (Auto) 1-5 (0-5) /lpf U Epithel Cells (Auto) 20-30 H (0-5) /lpf Urine Bacteria (Auto) 4+ H (Negative) Ur Renal Epithelial Cell 0-5 (0-5) /lpf Urine Yeast Not Reportable Lyme Disease IgG Ab Positive A (Negative) Lyme Disease IgM Ab Negative (Negative) ECG Data Attestation: I personally reviewed and interpreted this ECG as follows: Indication: + other Rate (beats per minute): 117 Rhythm: + atrial fibrillation ECG ST segments: + Nonspecific ST abnormalities Comparison ECG Date: from (January 03, 2019) Change: no significant change Blood Pressure Blood Pressure Findings: Normal blood pressure MDM Narrative The patient was evaluated. IV access was obtained. The patient was not given fluids secondary to the patient's CHF and peripheral edema. CBC and differential, renal profile, LFTs, magnesium, CK, Lyme titers were drawn. Urinalysis was ordered. EKG was ordered interpreted as above without any change from prior EKG from January 03, 2019. The patient's white count was slightly high at 10.42. The patient's hemoglobin was low at 9.0 and hematocrit was 28.8. Patient's magnesium was normal at 2.2 CK was normal at 275. Urine revealed positive protein, 3+ blood, negative nitrates positive leukocytes and 4+ bacteria. The patient's INR was greater than 10.4. The patient was given vitamin K 10 mg IV. The patient's case was discussed with Dr. Moore who agreed with treatment plan. Hospitalist was consulted for admission. Impression & Plan Anemia, Elevated INR, Acute UTI, Kidney stone on left side Discharge Plan Visit Data Chief Complaint: Illness ED Provider: Mina Moore ED Midlevel Provider: Sushma Beltran Discharge Problem: Anemia, Elevated INR, Acute UTI, Kidney stone on left side Patient Disposition: Being Evaluated by Hospitalist Condition: Good Forms Stand Alone Forms: My [employer] Prescriptions Prescriptions: No Action warfarin 7.5 mg tablet 7.5 mg PO .COMPLEX Qty: 30 RF: 5 sennosides-docusate sodium [Senna-S] 8.6-50 mg Tablet 1 tab PO DAILY RF: 0 fexofenadine [Anju Allergy] 180 mg Tablet 180 mg PO DAILY RF: 0 ascorbic acid (vitamin C) [Vitamin C] 500 mg Tablet,Chewable 500 mg PO DAILY RF: 0 metoprolol tartrate 50 mg tablet 50 mg PO BID RF: 0 oxybutynin chloride 5 mg tablet 5 mg PO TID RF: 0 Prilosec OTC 20 mg Tablet,Delayed Release (Dr/Ec) 20 mg PO DAILY RF: 0 cholecalciferol (vitamin D3) [Vitamin D3] 400 unit Tablet,Chewable 400 unit PO DAILY RF: 0 Flintstones Gummies Tablet,Chewable 1 tab PO DAILY RF: 0 calcium-vitamin D3-vitamin K [Viactiv] 650 mg-12.5 mcg-40 mcg Tablet,Chewable 1 tab PO DAILY RF: 0 glimepiride 2 mg tablet 2 mg PO QDB RF: 0 potassium chloride 10 mEq tablet extended release 10 meq PO DAILY RF: 0 diltiazem HCl 120 mg capsule,extended release 12 hr 120 mg PO DAILY RF: 0 furosemide 20 mg tablet 20 mg PO DAILY RF: 0 Referrals Referrals: Benitez Millan III, MD [Primary Care Provider] -
[2019-02-24 10:03] LABS: Albumin Level 2.4 gm/dl (3.4-5.0); BUN Creatinine Ratio 14.3 (10-20); Calcium 8.5 mg/dl (8.5-10.1); Creatinine Clr Calc Pharmacy 67.6 ml/min; Est GFR (African American) 41.3; Est GFR (Non-African American) 35.6; Magnesium 2.2 mg/dl (1.8-2.4); Potassium 4.3 mmol/L (3.5-5.1)
[2019-02-24 10:07] LABS: Albumin Globulin Ratio 0.5 (0.9-2); Bilirubin,Total 0.9 mg/dl (0.2-1); Globulin 5.2 gm/dl (2.5-4.0); Total Protein 7.6 gm/dl (6.4-8.2)
[2019-02-24 10:20] LABS: INR > 10.4 (0.9-1.1)
[2019-02-24] MEDS ORDERED: PHYTONADIONE 10 MG in SODIUM CHLORIDE 0.9% 50 ML IV ONE (10:31)
[2019-02-24 11:10] LABS: Lyme Ab IgM w/WB Rflx Negative (Negative)
[2019-02-24 11:11] LABS: Lyme Ab IgG w/WB Rflx Positive (Negative)
[2019-02-24 11:24] LABS: Appearance Urine Turbid (Clear); Bacteria Urine Automated 4+ (Negative); Bilirubin Urine Negative (Negative); Blood Urine 3+ (Negative); Color Urine Dark Yellow; Epithelial Cell Urine Auto 20-30 /lpf (0-5); Glucose Urine UA Negative (Negative); Ketones Urine Negative (Negative); Leukocyte Esterase Urine 3+ (Negative); Nitrite Urine Negative (Negative); Protein Urine 2+ (Negative); Specific Gravity Urine 1.014 (1.000-1.030); Urobilinogen Urine Negative (Negative); WBC Urine Automated >30 /hpf (0-5); pH Urine 5.5 (4.5-7.5)
[2019-02-24 11:28] LABS: POC Urine Blood 250 (Negative); POC Urine Glucose Normal (Normal); POC Urine Ketones Negative (Negative); POC Urine Leukocytes 2+ (Negative); POC Urine Nitrite Negative (Negative); POC Urine Protein 2+ (Negative); POC Urine pH 5 (4.5-7.5)
[2019-02-24 11:45] LABS: RBC Urine Automated >30 /hpf (0-4); Renal Epithelial Cells Urine 0-5 /lpf (0-5)
[2019-02-24] MEDS ORDERED: cefTRIAXone SODIUM 2000MG/70ML D5W IV ONE (13:17)
--- NOTE | 2019-02-24 13:18 | History & Physical Report ---
Date of Service February 24, 2019 Assessment & Plan (1) Elevated INR: Admit to PCU on telemetry for observation for supratherapeutic INR of 10.4. INR daily. Patient received 10 units of vitamin K in the ER. Hold warfarin. Continue observing for internal bleeding, and monitoring INR DVT prophylaxis -contraindicated because patient is supratherapeutic. Full code Present on Admission?: Yes (2) Anemia: Check all stools for fecal occult blood. Patient patient reports no bruising or internal bleeding. Denies melena, hematochezia and hematuria. Urine positive for microscopic blood. Continue monitoring. Transfuse if hemoglobin drops below 8 and patient symptomatic. Present on Admission?: Yes (3) Acute UTI: Positive for leukocyte esterase. Started ceftriaxone 2 g IV daily. Urine culture pending Present on Admission?: Yes (4) Kidney stone on left side: Patient known to have 6 mm obstructing ureteral calculus with minimal to mild left hydronephrosis. T The extuberant degree of the perinephritic and periureteral infiltrate glover ges/fluid on the left arises concern for the either superimposed infection or calyceal rupture. Plan to consult urology. Present on Admission?: Yes (5) Generalized weakness: Patient has positive Lyme IgG serology. Follow-up Western blot serology. Started doxycycline prophylactically 100 mg p.o. twice daily. Present on Admission?: Yes (6) Acute kidney injury superimposed on CKD: Patient baseline fluctuates-CKD stage III. Avoid nephrotoxic agents. Monitor creatinine and GFR. Present on Admission?: Yes (7) Type 2 diabetes mellitus: Hold oral hypoglycemic agents since patient is in the hospital. Continue with sliding scale insulin and Accu-Cheks before meals and at bedtime. Glycemic control followed by pharmacy. A1c pending. Present on Admission?: Yes (8) Chronic diastolic CHF (congestive heart failure): BNP 1442. Improved in comparison to December 2018. Strict in and outs and daily weight. Low-sodium diet. Patient appears to be euvolemic. Continue home medicine: Diltiazem 120 mg p.o. daily, metoprolol 50 mg p.o. twice daily. Potassium chlor azeem 10 mEq p.o. daily. (9) Morbid obesity with BMI of 50.0-59.9, adult: Patient advised to continue losing weight. Present on Admission?: Yes (10) Obstructive sleep apnea: Continue CPAP as per home protocol. Present on Admission?: Yes History of Present Illness Chief Complaint: Body aches, supratherapeutic INR, urinary tract infection Primary Care Provider: Benitez Millan MD Patient is a 63 years old male with past medical history of morbid obesity, CKD stage III, obstructive uropathy, chronic diastolic congestive heart failure, atrial fibrillation's who presents to the emergency room with a complaint of body aches for 1 to 2 days. Patient is on Coumadin for A. fib's. His INR is elevated to 10.4. Patient has A. fib's with RVR. Patient denies of fever, chills, chest pain, shortness of breath, abdominal pain, frequency, urgency,, syncope, near syncope. Labs are reviewed which shows: WBC is 10.82, hemoglobin 9, hematocrit 28.8, platelets 288, sodium 136, potassium 4.3, chloride 109, anion gap 1, BUN 28, creatinine 1. 97, GFR 35.6, albumin 2.4. Urine analysis: High leukocyte esterase, urine bacteria 4+.Chest x-ray shows cardiomegaly with volume overload and congestive changes no sharon pulmonary edema. Decision was made to admit patient for observation on telemetry body aches, urinary tract infection and supratherapeutic INR. Allergies Allergy/AdvReac Type Severity Reaction Status Date / Time No Known Allergies Allergy Unverified 02/05/19 13:57 Home Medications Home Medications Medication Instructions Recorded Confirmed Type warfarin 7.5 mg tablet 7.5 mg PO .COMPLEX #30 tab 10/14/18 02/24/19 Rx ascorbic acid (vitamin C) [Vitamin 500 mg PO DAILY 01/03/19 02/24/19 History C] calcium-vitamin D3-vitamin K 1 tab PO DAILY 01/03/19 02/24/19 History [Viactiv] cholecalciferol (vitamin D3) 400 unit PO DAILY 01/03/19 02/24/19 History [Vitamin D3] fexofenadine [Anju Allergy] 180 mg PO DAILY 01/03/19 02/24/19 History glimepiride 2 mg PO QDB 01/03/19 02/24/19 History metoprolol tartrate 50 mg PO BID 01/03/19 02/24/19 History omeprazole magnesium [Prilosec OTC] 20 mg PO DAILY 01/03/19 02/24/19 History oxybutynin chloride 5 mg PO TID 01/03/19 02/24/19 History pediatric multivitamin no.49 1 tab PO DAILY 01/03/19 02/24/19 History [Flintstongerry Gummies] sennosides-docusate sodium 1 tab PO DAILY 01/03/19 02/24/19 History [Senna-S] diltiazem HCl 120 mg PO DAILY 02/24/19 02/24/19 History furosemide 20 mg PO DAILY 02/24/19 02/24/19 History potassium chloride 10 meq PO DAILY 02/24/19 02/24/19 History Past Med/Surg History Medical History Atrial fibrillation CHF (congestive heart failure) CKD (chronic kidney disease), stage III Kidney stones Morbid obesity with BMI of 50.0-59.9, adult Surgical History History of nephrostomy History of Abhijit-en-Y gastric bypass Social History Preferred Language: German Communication Ability: Effective 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 Beliefs That Will Affect Care: None marital status: Single Current Living Situation: Alone current occupational status: employed Other Information That Helps Us Care for You: No Feels Safe at Home: Yes Safety Concerns: Feels Safe At This Time Smoking Status: Never smoker Hx Alcohol Use: Yes Alcohol type: beer Hx Substance Use: No Review of Systems Review of Systems: All systems reviewed & are unremarkable except as noted in HPI & below Physical Exam Constitutional: WD/WN, vitals as above + morbidly obese Eyes: PERRL, conjunctivae normal, anicteric sclerae ENMT: external ear and nose normal, oropharynx normal Neck: trachea midline, no thyromegaly Respiratory: Auscultation: + wheezes Cardiovascular: Rate/Rhythm: + irregularly irregular Vessels: dorsalis pedis pulses present Extremities: + pedal edema Gastrointestinal (Abdomen): normal bowel sounds, soft, nontender, no hepatosplenomegaly Musculoskeletal: no cyanosis or clubbing, extremities motor strength 5/5 Skin: no rashes, warm and dry Neurologic: patellar DTR's 2+ bilat, sensation intact Psychiatric: A+Ox3, euthymic affect Lymphatic: no cervical or axillary lymphadenopathy Results & Data Vital Signs (Past 12 Hours) Vital Signs Temp Pulse Resp BP Pulse Ox 02/24/19 12:11 109 H 24 124/43 L 95 02/24/19 11:00 99 H 30 H 108/56 L 95 02/24/19 10:30 100 H 22 115/61 96 02/24/19 10:00 107 H 24 92/64 L 100 02/24/19 09:51 110 H 21 120/61 96 02/24/19 09:03 37 C 103 H 20 123/66 96 Code Status & VTE Plan Code Status Full code VTE Prophylaxis Plan VTE Prophylaxis will be ordered: No PG Care Time/CCT Total # of Minutes Spent Total Time Spent with Patient: Total time spent is greater than 50% in coordination of care (as documented) at patient's floor/unit and/or counseling patient: (1) Anemia Anemia type: unspecified type Qualified Code(s): D64.9 - Anemia, unspecified
[2019-02-24] MEDS: cefTRIAXone SODIUM 2,000 MG in DEXTROSE 5% 50 ML IV SCH (13:20)
[2019-02-24] MEDS ORDERED: GLUCOSE 40% GEL 15 GM TUBE PO PRN (13:53)
[2019-02-24] MEDS ORDERED: GLUCOSE 10 TABS/TUBE PO PRN (13:53)
[2019-02-24] MEDS ORDERED: DEXTROSE 50% 50 ML SYRINGE IV PRN (13:53)
[2019-02-24] MEDS ORDERED: GLUCAGON FOR INJ 1 MG VIAL SQ PRN (13:53)
[2019-02-24] MEDS ORDERED: CARBOHYDRATES FOR HYPOGLYCEMIA PO PRN (13:53)
[2019-02-24] MEDS ORDERED: PHARMACY GLYCEMIC MGMT CONSULT PRN (14:59)
[2019-02-24] MEDS ORDERED: SODIUM CHLORIDE 0.9% 1000ML 1,000 ML IV SCH (15:05)
--- NOTE | 2019-02-24 15:16 | Electrocardiogram Report ---
Test Reason : Blood Pressure : / mmHG Vent. Rate : 117 BPM Atrial Rate : 060 BPM P-R Int : 000 ms QRS Dur : 124 ms QT Int : 348 ms P-R-T Axes : 000 -48 012 degrees QTc Int : 485 ms Atrial fibrillation with rapid ventricular response Left axis deviation Right bundle branch block Inferior infarct (cited on or before 19-OCT-2000) Anterolateral infarct (cited on or before 19-OCT-2000) Abnormal ECG When compared with ECG of 03-JAN-2019 09:44, QRS duration has decreased Questionable change in initial forces of Inferior leads Confirmed by Bairon Baldwin ([id number]) on 02/24/2019 3:16:34 PM Referred By: REFERRED SELF Confirmed By:Bairon Baldwin
[2019-02-24 15:35] LABS: Basophils # (auto) 0.02 K/uL (0-0.2); Basophils % (auto) 0.2 %; Eosinophils % (auto) 1.1 %; Hematocrit (blood only) 28.6 % (42-52); Hemoglobin 8.8 g/dL (14.0-18.0); Immature Granulocytes # (auto) 0.08 K/uL (0.00-0.02); Immature Granulocytes % (auto) 0.8 %; Lymphocytes # (auto) 0.86 K/uL (1.2-3.4); Lymphocytes % (auto) 9.1 %; Mean Corpuscular Hemoglobin 28.1 pg (25-34); Mean Corpuscular Hgb Conc 30.8 g/dL (32-36); Mean Corpuscular Volume 91.4 fL (80-100); Monocytes % (auto) 9.5 %; Neutrophils # (auto) 7.47 K/uL (1.4-6.5); Neutrophils % (auto) 79.3 %; Platelet Count 315 K/uL (130-400); RDW Coefficient of Variation 16.3 % (11.5-14.5); RDW Standard Deviation 54.3 fL (36.4-46.3); Red Blood Count 3.13 M/uL (4.7-6.1); White Blood Count 9.43 K/uL (4.8-10.8)
[2019-02-24] MEDS ORDERED: LANTUS PER UNIT CHARGE SQ ONE (16:00)
[2019-02-24 16:01] LABS: Thyroid Stimulating Hormone 2.65 uIu/ml (0.300-4.500)
[2019-02-24] MEDS: OXYBUTYNIN CHLORIDE 5 MG TAB PO SCH ×2 (16:54→20:58)
[2019-02-24] MEDS: INSULIN ASPART 100 UNITS/ML 3 ML PEN SC SCH ×2 (16:56→20:49)
[2019-02-24] MEDS: METOPROLOL TARTRATE 50 MG TAB PO SCH (20:55)
[2019-02-24] MEDS: INSULIN GLARGINE SOLOSTAR 100 UNITS/ML 3 ML PEN SC SCH (20:58)
[2019-02-24] MEDS ORDERED: DOXYCYCLINE HYCLATE 100 MG CAP PO SCH (23:45)
[2019-02-25] MEDS: INSULIN ASPART 100 UNITS/ML 3 ML PEN SC SCH ×6 (00:02→20:55)
[2019-02-25 06:00] LABS: Basophils # (auto) 0.02 K/uL (0-0.2); Basophils % (auto) 0.2 %; Eosinophils # (auto) 0.15 K/uL (0-0.5); Eosinophils % (auto) 1.7 %; Hematocrit (blood only) 26.5 % (42-52); Hemoglobin 8.2 g/dL (14.0-18.0); Immature Granulocytes # (auto) 0.08 K/uL (0.00-0.02); Immature Granulocytes % (auto) 0.9 %; Lymphocytes # (auto) 0.83 K/uL (1.2-3.4); Lymphocytes % (auto) 9.1 %; Mean Corpuscular Hemoglobin 27.6 pg (25-34); Mean Corpuscular Hgb Conc 30.9 g/dL (32-36); Mean Corpuscular Volume 89.2 fL (80-100); Mean Platelet Volume 8.7 fL (7.4-10.4); Monocytes # (auto) 0.81 K/uL (0.11-0.59); Monocytes % (auto) 8.9 %; Neutrophils # (auto) 7.19 K/uL (1.4-6.5); Neutrophils % (auto) 79.2 %; Platelet Count 295 K/uL (130-400); RDW Coefficient of Variation 16.3 % (11.5-14.5); RDW Standard Deviation 52.4 fL (36.4-46.3); Red Blood Count 2.97 M/uL (4.7-6.1); White Blood Count 9.08 K/uL (4.8-10.8)
[2019-02-25 06:13] LABS: INR 1.7 (0.9-1.1); Prothrombin Time 16.9 Seconds (9.0-12.0)
[2019-02-25 06:37] LABS: Albumin Level 2.2 gm/dl (3.4-5.0); BUN Creatinine Ratio 15.4 (10-20); Calcium 8.3 mg/dl (8.5-10.1); Creatinine Clr Calc Pharmacy 79.7 ml/min; Est GFR (African American) 50.4; Est GFR (Non-African American) 43.5; Potassium 4.2 mmol/L (3.5-5.1)
[2019-02-25 06:40] LABS: Albumin Globulin Ratio 0.5 (0.9-2); Bilirubin,Total 0.8 mg/dl (0.2-1); Globulin 4.8 gm/dl (2.5-4.0)
[2019-02-25 06:45] LABS: Estimated Average Glucose 128 mg/dl; Hemoglobin A1C 6.1 % (4.5-5.6)
[2019-02-25] MEDS ORDERED: GLIMEPIRIDE 2 MG TAB PO SCH (07:30)
--- NOTE | 2019-02-25 07:55 | Hospitalist Progress Note ---
Date of Service February 25, 2019 Assessment & Plan (1) Complicated UTI (urinary tract infection): 63 yo M PMHx nephrolithiasis, AFib on chronic AC with warfarin, DM2, CHF, CKD stage III admitted for elevated INR to 10.4 found to have complicated UTI in the setting of current nephrolithiasis with stent in place. Elevated INR: - Pt admitted with INR of 10.4; given 10u Vitamin K and now with INR of 1.7. - No signs or symptoms of active bleeding. - Hemoccult qAM stools. - Daily INR check. Have restarted coumadin at 5mg daily and will titrate based on INR. Complicated UTI with current obstructive uropathy s/p stenting: - Pt 6 weeks ago had stent placed for left sided obstructive uropathy; for lithotripsy by Dr. Omalley in [facility] 04/11/2019. - Pt with UA positive for UTI, UCx growing gram negative rods. - Started on Rocephin, will continue until sensitivities. - Pt afebrile and without leukocytosis. No flank pain. - Given this is a complicated UTI with an obstructing stone, pt may benefit from earlier intervention by Urology. Will call office. Bilateral claudication of lower extremities: - On interview today pt gave story suspicious for LE claudication. - Bilateral LE arterial duplex showed moderate arterial occlusive change of the small vessels of the lower right and left legs without stenosis at the level of the thighs. - Have consulted Vascular Surgery. - Started on asa 81 mg daily and atorvastatin 20mg given LDL on the low side. Anemia: - Pt's Hgb since 2018 has dropped from 13.4 -> 8.2 this admission. - Pt reports significant amount of hematuria with impacted stone. However will check Hemoccult stool when collected. - No other signs or symptoms of bleeding. - Trend CBC. - Will need outpatient follow up. Also has never had a colonoscopy before. AFib/Hx of DVT: - Pt on chronic warfarin therapy. Reports that he used to be on alternating doses of 2.5mg and 7.5mg before his most recent admission to [facility]. At that time states that he was told to keep taking 7.5mg daily which he has done for nearly 6 weeks; this suggests that he may have been getting ~5 extra milligrams of warfarin weekly for 6 weeks which would explain his suddenly high levels. - No recent changes in diet that would explain this drastic increase. - Given pt's history of recurrent DVT and stroke risk with AFib have restarted warfarin at 5mg daily and will titrate as needed depending on INR. INR currently subtherapeutic for AFib at 1.7. DM2: - Pt's Hgb A1c this admission is 6.1, suggesting good control on glimepiride. - Currently on SSI; will return to home agents on discharge. - DM2 diet. CHF: - Pt with Hx of CHF most recent Echo 02/24/2019 shows 55-60%, no wall motion abnormalities, mild LVH. - Pt's lungs clear and appears euvolemic; 1+ edema likely due to venous stasis. - BNP 1442. Improved in comparison to December 2018. - Strict in and outs and daily weight. Low-sodium diet. - Continue Diltiazem 120 mg p.o. daily, metoprolol 50 mg p.o. twice daily. Potassium chloride 10 mEq p.o. daily. Code Status: FULL CODE FEN/GI: low sodium DM2 diet DVT ppx: warfarin started today Dispo: Med/Surg (2) Obstructive uropathy: (3) Claudication of both lower extremities: (4) Elevated INR: (5) Anemia: (6) Recurrent deep vein thrombosis (DVT): (7) Type 2 diabetes mellitus: (8) Chronic diastolic CHF (congestive heart failure): (9) Atrial fibrillation: Supervising Physician Co-Signing Physician Notes I personally examined the patient and verified all aquino points of history and exam, discussed case, and agree with decision making with Dr Tavarez. Feeling okay at rest. Reiterates leg pain with any exertion feeling like a vice going from his muscles through to his bone. No fevers chills or sweats. Notes that after his stay at [facility] he was scheduled for lithotripsy several months out he believes simply due to scheduling issues. Has no urinary symptoms now and feels drastically different than whenever he was here with the obstructing stone. Vitals noted, in general he is awake and alert pleasant no distress. HEENT normocephalic atraumatic mucous membranes moist. b/l LE woody dense edema c/w chronic venous stasis changes. no erythema. (+) DP pulses. no focal neuro deficits. lungs show unlabored breathing no accessory muscles good effort. Leg paincheck arterial Dopplers. Clinical history sounds most consistent with claudication. Await findings and will generate plan based on this. Positive urine culturegiven that he has both male and has a stone, hard to call this asymptomaticshe is certainly high risk for decompensation without treatment. Continue current antibiotics pending culture results. Will try to coordinate with urology to expedite his lithotripsy given that the stone is probably a nidus of infection. Anemiahe has had on again off again rather significant hematuria by his history, he is coagulopathic, and more than likely these 2 together are leading to his anemia. This does not show any acute hemorrhage, will definitely need to follow closely. He should have outpatient GI evaluationmostly simply because he is never had any type of colon cancer screening more so than anything symptomatic, given that we have a much more plausible alternate explanation. Continue to follow. Safe to resume Coumadin. Ureterolithiasisstatus post cystoscopy and stenting about 8 weeks ago. Given the infection and given that the anemia more than likely relates to hematuria, these are both reasons that it makes sense to try to expedite lithotripsy. We will try to coordinate with urology for this. Fortunately since he is not currently obstructed and does not represent crisis level emergency, but more something that would do him benefit to have expedited. Coumadin related coagulopathyhe notes that his Coumadin dose had been raised on discharge from [facility], more than likely his blood slowly got thinner. It is now corrected. The most likely bleeding that he had from it was that it probably amplified bleeding from his ureterolithiasis, but otherwise he does not show any active ongoing bleeding or new bleeding. INR now low, has longstanding A. fib and recurrent DVTs, therefore we will resume Coumadin and follow closely. Otherwise as above. Stable for [facility], disposition will mostly be based on what we find with his legs and the Dopplers as above noted. Subjective Pt without acute events overnight. INR now 1.7 from >10. yesterday after Vitamin K dosing. Pt reports that intermittently he will have large amounts of hematuria. No bloody stools. No dizziness or headache. No chest pain, palpitations, shortness of breath. No fevers or chills. No dysuria or urinary urgency. Has appointment for lithotripsy with Dr. Omalley with [facility] 04/11/2019. States that he came in because he was having cramping in his legs. Describes cramping as "like something is squeezing my legs with a clamp". Pain is worse when in seated position with legs down and with walking. Pt walks about 30 steps to car/mailbox with pain. Pain alleviated with elevation of legs in his lazyboy at home. Review of Systems Constitutional: no fever, no chills and no malaise Respiratory: no cough and no dyspnea Cardiovascular: + edema (minimal edema all the time. worst at night.) Additional Comments: leg pain as described above Gastrointestinal: no abdominal pain, no constipation and no diarrhea/loose stools Physical Exam Constitutional: well developed and + morbidly obese Respiratory: normal respiratory effort, lungs clear to auscultation Cardiovascular: Heart Sounds: no murmur Extremities: + edema (1+ bilateral LE with signs of venous stasis skin changes) HR irregularly irregular DP pulses appreciable bilaterally. Unable to locate PT pulses bilaterally Gastrointestinal (Abdomen): normal bowel sounds, soft, nontender, no hepatosplenomegaly no suprapubic or CVA tenderness Psychiatric: A+Ox3, euthymic affect Results & Data Vital Signs (Past 12 Hours) Vital Signs Temp Pulse Pulse Resp BP Pulse Ox 02/25/19 06:57 36.4 C L 100 H 16 105/68 98 02/25/19 05:03 115 H 16 96 02/25/19 02:39 37.2 C 100 H 20 93/73 L 95 02/24/19 23:59 37.2 C 105 H 24 107/65 94 02/24/19 23:44 102 H 18 94 02/24/19 20:55 123 H 18 101/70 Laboratory Results Laboratory Results - last 24 hr 02/24/19 02/24/19 02/25/19 11:17 20:39 00:00 WBC RBC Hgb Hct MCV MCH MCHC RDW Std Deviation RDW Coeff of Evan Plt Count MPV Immature Gran % (Auto) Neut % (Auto) Lymph % (Auto) [place] % (Auto) Eos % (Auto) Baso % (Auto) Immature Gran # (Auto) Neut # (Auto) Lymph # (Auto) [place] # (Auto) Eos # (Auto) Baso # (Auto) PT INR Sodium Potassium Chloride Carbon Dioxide Anion Gap BUN Creatinine Est Cr Clr Drug Dosing Est GFR ( Amer) Est GFR (Non-Af Amer) BUN/Creatinine Ratio Glucose POC Glucose 110 H 124 H Estimat Average Glucose Hemoglobin A1c Calcium Total Bilirubin AST ALT Alkaline Phosphatase Total Protein Albumin Globulin Albumin/Globulin Ratio Triglycerides Cholesterol LDL Cholesterol, Calc VLDL Cholesterol, Calc HDL Cholesterol Cholesterol/HDL Ratio POC Urine Bilirubin Not Reportable POC Urine Urobilinogen Not Reportable 02/25/19 02/25/19 02/25/19 04:03 05:36 05:36 WBC 9.08 RBC 2.97 L Hgb 8.2 L Hct 26.5 L MCV 89.2 MCH 27.6 MCHC 30.9 L RDW Std Deviation 52.4 H RDW Coeff of Evan 16.3 H Plt Count 295 MPV 8.7 Immature Gran % (Auto) 0.9 Neut % (Auto) 79.2 Lymph % (Auto) 9.1 [place] % (Auto) 8.9 Eos % (Auto) 1.7 Baso % (Auto) 0.2 Immature Gran # (Auto) 0.08 H Neut # (Auto) 7.19 H Lymph # (Auto) 0.83 L [place] # (Auto) 0.81 H Eos # (Auto) 0.15 Baso # (Auto) 0.02 PT 16.9 H INR 1.7 H Sodium Potassium Chloride Carbon Dioxide Anion Gap BUN Creatinine Est Cr Clr Drug Dosing Est GFR ( Amer) Est GFR (Non-Af Amer) BUN/Creatinine Ratio Glucose POC Glucose 136 H Estimat Average Glucose Hemoglobin A1c Calcium Total Bilirubin AST ALT Alkaline Phosphatase Total Protein Albumin Globulin Albumin/Globulin Ratio Triglycerides Cholesterol LDL Cholesterol, Calc VLDL Cholesterol, Calc HDL Cholesterol Cholesterol/HDL Ratio POC Urine Bilirubin POC Urine Urobilinogen 02/25/19 02/25/19 02/25/19 05:36 05:36 07:50 WBC RBC Hgb Hct MCV MCH MCHC RDW Std Deviation RDW Coeff of Evan Plt Count MPV Immature Gran % (Auto) Neut % (Auto) Lymph % (Auto) [place] % (Auto) Eos % (Auto) Baso % (Auto) Immature Gran # (Auto) Neut # (Auto) Lymph # (Auto) [place] # (Auto) Eos # (Auto) Baso # (Auto) PT INR Sodium 139 Potassium 4.2 Chloride 110 H Carbon Dioxide 26 Anion Gap 3.0 BUN 26 H Creatinine 1.67 H D Est Cr Clr Drug Dosing 79.7 Est GFR ( Amer) 50.4 Est GFR (Non-Af Amer) 43.5 BUN/Creatinine Ratio 15.4 Glucose 122 H POC Glucose 176 H Estimat Average Glucose 128 Hemoglobin A1c 6.1 H Calcium 8.3 L Total Bilirubin 0.8 AST 21 ALT 24 Alkaline Phosphatase 63 Total Protein 7.0 Albumin 2.2 L Globulin 4.8 H Albumin/Globulin Ratio 0.5 L Triglycerides 99 Cholesterol 109 LDL Cholesterol, Calc 56 VLDL Cholesterol, Calc 20 HDL Cholesterol 33 Cholesterol/HDL Ratio 3 POC Urine Bilirubin POC Urine Urobilinogen 02/25/19 02/25/19 12:04 16:13 WBC RBC Hgb Hct MCV MCH MCHC RDW Std Deviation RDW Coeff of Evan Plt Count MPV Immature Gran % (Auto) Neut % (Auto) Lymph % (Auto) [place] % (Auto) Eos % (Auto) Baso % (Auto) Immature Gran # (Auto) Neut # (Auto) Lymph # (Auto) [place] # (Auto) Eos # (Auto) Baso # (Auto) PT INR Sodium Potassium Chloride Carbon Dioxide Anion Gap BUN Creatinine Est Cr Clr Drug Dosing Est GFR ( Amer) Est GFR (Non-Af Amer) BUN/Creatinine Ratio Glucose POC Glucose 199 H 134 H Estimat Average Glucose Hemoglobin A1c Calcium Total Bilirubin AST ALT Alkaline Phosphatase Total Protein Albumin Globulin Albumin/Globulin Ratio Triglycerides Cholesterol LDL Cholesterol, Calc VLDL Cholesterol, Calc HDL Cholesterol Cholesterol/HDL Ratio POC Urine Bilirubin POC Urine Urobilinogen Medications Administered Current Medications Ascorbic Acid (Vitamin C) 500 mg PO DAILY [facility] Stop: 03/27/19 08:59 Last Admin: 02/25/19 08:37 Dose: 500 mg Documented by: Aspirin (Ecotrin Ectab) 81 mg PO QAM [facility] Stop: 03/28/19 08:59 Atorvastatin Calcium (Lipitor) 20 mg PO QAM [facility] Stop: 03/28/19 08:59 Dextrose (Dextrose 50%) 25 - 50 ml IV UD PRN; Protocol PRN Reason: Hypoglycemia Protocol Stop: 03/26/19 13:52 Diltiazem HCl (Tiazac) 120 mg PO DAILY [facility] Stop: 03/27/19 08:59 Last Admin: 02/25/19 08:37 Dose: 120 mg Documented by: Furosemide (Lasix) 20 mg PO DAILY [facility] Stop: 03/27/19 08:59 Last Admin: 02/25/19 08:37 Dose: 20 mg Documented by: Glucagon (Glucagen) 1 mg SQ UD PRN; Protocol PRN Reason: Hypoglycemia Protocol Stop: 03/26/19 13:52 Glucose (Dex4 Glucose) 4 - 8 tabs PO UD PRN; Protocol PRN Reason: Hypoglycemia Protocol Stop: 03/26/19 13:52 Glucose (Glucose 40%) 15 - 30 gm PO UD PRN; Protocol PRN Reason: Hypoglycemia Protocol Stop: 03/26/19 13:52 Ceftriaxone Sodium 2,000 mg/ (Dextrose) 70 mls @ 100 mls/hr IV Q24H [facility]; Protocol Stop: 03/06/19 13:14 Last Infusion: 02/25/19 15:32 Dose: Infused Documented by: Insulin Aspart (Novolog Flexpen) 0 units SC ACHS [facility] Stop: 03/27/19 16:29 Insulin Aspart (Novolog Flexpen) 0 units SC TODAY@0200 [facility] Stop: 03/28/19 01:59 Insulin Glargine (Lantus Solostar Pen) 0 units SC BID [facility]; Protocol Stop: 03/26/19 20:59 Last Admin: 02/25/19 10:30 Dose: 16 units Documented by: Metoprolol Tartrate (Lopressor) 50 mg PO BID [facility] Stop: 03/26/19 20:59 Last Admin: 02/25/19 08:37 Dose: 50 mg Documented by: Miscellaneous (Carbohydrates For Hypoglycemia) 15 - 30 gm PO UD PRN PRN Reason: Hypoglycemia Protocol Stop: 03/26/19 13:52 Miscellaneous Information (Consult Glycemic Management Pharmacy) 1 ea N/A UD PRN; Protocol PRN Reason: Consult Stop: 03/26/19 14:58 Multivitamins/Folic Acid/Vitamin C (Flintstones Complete Chew Tab) 1 tab PO DAILY [facility] Stop: 03/27/19 08:59 Last Admin: 02/25/19 08:37 Dose: 1 tab Documented by: Oxybutynin Chloride (Ditropan) 5 mg PO TID [facility] Stop: 03/26/19 14:47 Last Admin: 02/25/19 13:29 Dose: 5 mg Documented by: Potassium Chloride (Klor-Con M10) 10 meq PO DAILY [facility] Stop: 03/27/19 08:59 Last Admin: 02/25/19 08:37 Dose: 10 meq Documented by: Senna/Docusate Sodium (Senokot S) 1 tab PO DAILY [facility] Stop: 03/27/19 08:59 Last Admin: 02/25/19 08:36 Dose: Not Given Documented by: Vitamin D (Vitamin D3) 400 units PO DAILY [facility] Stop: 03/27/19 08:59 Last Admin: 02/25/19 08:37 Dose: 400 units Documented by: Warfarin Sodium (Coumadin) 5 mg PO DAILY@1600 [facility] Stop: 03/28/19 15:59 Resident Activity Tracking Resident Involvement: Resident Care Provided Care Provided: Adult Hospital Medicine (1) Anemia Anemia type: unspecified type Qualified Code(s): D64.9 - Anemia, unspecified
[2019-02-25] MEDS: DOCUSATE SODIUM/SENNA 50/8.6MG TAB PO SCH (08:36)
[2019-02-25] MEDS: METOPROLOL TARTRATE 50 MG TAB PO SCH ×2 (08:37→20:49)
[2019-02-25] MEDS: FLINTSTONES COMPLETE CHEWABLE TAB PO SCH (08:37)
[2019-02-25] MEDS: ASCORBIC ACID 500 MG TAB PO SCH (08:37)
[2019-02-25] MEDS: dilTIAZem ER 120 MG CAPCR PO SCH (08:37)
[2019-02-25] MEDS: OXYBUTYNIN CHLORIDE 5 MG TAB PO SCH ×3 (08:37→20:19)
[2019-02-25] MEDS: FUROSEMIDE 20 MG TAB PO SCH (08:37)
[2019-02-25] MEDS: CHOLECALCIFEROL (VITAMIN D) 400 UNITS TABLET PO SCH (08:37)
[2019-02-25] MEDS: POTASSIUM CHLORIDE 10 MEQ TABCR PO SCH (08:37)
[2019-02-25] MEDS ORDERED: NON-FORMULARY MEDICATION (Calcium-Vitamin D3-Vitamin K [Viactiv] 1 TAB) PO SCH (09:00)
[2019-02-25] MEDS: INSULIN GLARGINE SOLOSTAR 100 UNITS/ML 3 ML PEN SC SCH ×2 (10:30→20:53)
--- NOTE | 2019-02-25 12:59 | Pharmacy Report ---
Pharmacy Glycemic Short Note 2 - Date of Service February 25, 2019 - Glycemic Short BSG Results (Last 24 hours): 02/24/19 02/24/19 02/25/19 16:23 20:39 00:00 Glucose POC Glucose 183 H 110 H 124 H 02/25/19 02/25/19 02/25/19 04:03 05:36 07:50 Glucose 122 H POC Glucose 136 H 176 H 02/25/19 12:04 Glucose POC Glucose 199 H OUTPATIENT ANTIDIABETIC REGIMEN: * Glimepiride 2mg PO daily * A1c = 6.1 % 02/25/19 ASSESSMENT: * Type 2 diabetic admitted for elevated INR, anemia, myalgias, ? Lyme, UTI * Patient was initiated on SQ basal / bolus regimen yesterday using adjusted body weight (given BMI > 50) and mild-moderate stress level * Fasting BSG 176 this AM with no basal insulin on board; 16 units of basal given this AM (rather than 8 units), will adjust scale for this PM only * Novolog CF and CR performed well following breakfast, too soon to know if adjustment required - will continue the same and monitor post-prandial trend PLAN FOR INPATIENT GLYCEMIC CONTROL: * Hold outpatient oral diabetes medications (glimepiride) * Basal insulin * Lantus SQ BID per scale * 0 units if less than 160 * 8 units if 160 or greater * Bolus insulin * NovoLog per scale ACHS and at 0200 * Goal Range: Low 110 mg/dL - High 140 mg/dL * Correction Factor: 20 mg/dL/unit * Nutritional / Prandial insulin per carb ratio of 1 unit per 7 grams CHO consumed PLAN FOR DISCHARGE: * may resume home regimen of glimepiride if not experiencing hypoglycemia
[2019-02-25] MEDS: cefTRIAXone SODIUM 2,000 MG in DEXTROSE 5% 50 ML IV SCH (14:26)
--- NOTE | 2019-02-25 16:08 | Ultrasound Report ---
US arterial duplex LE BI CLINICAL HISTORY: LE pain with walking, concern for claudication pain. Edema. COMPARISON STUDY: None FINDINGS: Real-time as well as Doppler evaluation of the arterial structures of the lower legs was p erformed. Waveforms by or triphasic with thin of the left leg as well as right thigh. There are mono phasic waveforms within the posterior tibial arteries bilaterally. The following blood pressure indices were obtained. These could not be obtained due to patient discom fort. IMPRESSION: Moderate arterial occlusive change of the small vessels of the lower right as well as lef t leg. No significant stenosis involving the arterial structures of the thighs. ACT 112: Negative or not required by law. The above report was generated using voice recognition software. It may contain grammatical, syntax or spelling errors. Electronically signed by: Tanner Beltran M.D. 02/25/2019 4:07 PM
--- NOTE | 2019-02-25 17:06 | Billing Data ---
Date of Service February 25, 2019 Coding Level of Care Code 03987 Subseq Hosp Care Lvl 3
[2019-02-25] MEDS: WARFARIN SOD 5 MG TAB PO SCH (20:17)
[2019-02-26] MEDS ORDERED: INSULIN ASPART 100 UNITS/ML 3 ML PEN SC SCH (02:00)
[2019-02-26 03:15] LABS: 18KDIGG Band NON-REACTIVE; 23KDIGG Band NON-REACTIVE; 23KDIGM Band NON-REACTIVE; 28KDIGG Band NON-REACTIVE; 30KDIGG Band REACTIVE; 39KDIGG Band NON-REACTIVE; 39KDIGM Band NON-REACTIVE; 41KDIGG Band REACTIVE; 41KDIGM Band NON-REACTIVE; 45KDIGG Band REACTIVE; 58KDIGG Band REACTIVE; 66KDIGG Band NON-REACTIVE; 93KDIGG Band NON-REACTIVE; Lyme Antibodies, WB IgG NEGATIVE (NEGATIVE); Lyme Antibodies, WB IgM NEGATIVE (NEGATIVE)
[2019-02-26 06:34] LABS: Basophils # (auto) 0.03 K/uL (0-0.2); Basophils % (auto) 0.3 %; Eosinophils # (auto) 0.26 K/uL (0-0.5); Eosinophils % (auto) 2.8 %; Hematocrit (blood only) 28.1 % (42-52); Hemoglobin 8.4 g/dL (14.0-18.0); Immature Granulocytes # (auto) 0.14 K/uL (0.00-0.02); Immature Granulocytes % (auto) 1.5 %; Lymphocytes # (auto) 1.26 K/uL (1.2-3.4); Lymphocytes % (auto) 13.7 %; Mean Corpuscular Hemoglobin 27.6 pg (25-34); Mean Corpuscular Hgb Conc 29.9 g/dL (32-36); Mean Corpuscular Volume 92.4 fL (80-100); Mean Platelet Volume 8.9 fL (7.4-10.4); Monocytes # (auto) 0.77 K/uL (0.11-0.59); Monocytes % (auto) 8.4 %; Neutrophils # (auto) 6.75 K/uL (1.4-6.5); Neutrophils % (auto) 73.3 %; Platelet Count 332 K/uL (130-400); RDW Coefficient of Variation 16.6 % (11.5-14.5); RDW Standard Deviation 55.3 fL (36.4-46.3); Red Blood Count 3.04 M/uL (4.7-6.1); White Blood Count 9.21 K/uL (4.8-10.8)
[2019-02-26 06:40] LABS: INR 1.7 (0.9-1.1); Prothrombin Time 17.1 Seconds (9.0-12.0)
[2019-02-26 07:04] LABS: Albumin Level 2.3 gm/dl (3.4-5.0); BUN Creatinine Ratio 14.7 (10-20); Calcium 8.7 mg/dl (8.5-10.1); Creatinine Clr Calc Pharmacy 73.1 ml/min; Est GFR (African American) 46.1; Est GFR (Non-African American) 39.7; Potassium 4.1 mmol/L (3.5-5.1)
[2019-02-26 07:06] LABS: Albumin Globulin Ratio 0.4 (0.9-2); Bilirubin,Total 0.7 mg/dl (0.2-1); Globulin 5.2 gm/dl (2.5-4.0); Total Protein 7.5 gm/dl (6.4-8.2)
[2019-02-26] MEDS: CHOLECALCIFEROL (VITAMIN D) 400 UNITS TABLET PO SCH (08:32)
[2019-02-26] MEDS: ASCORBIC ACID 500 MG TAB PO SCH (08:33)
[2019-02-26] MEDS: DOCUSATE SODIUM/SENNA 50/8.6MG TAB PO SCH (08:33)
[2019-02-26] MEDS: dilTIAZem ER 120 MG CAPCR PO SCH (08:33)
[2019-02-26] MEDS: OXYBUTYNIN CHLORIDE 5 MG TAB PO SCH ×2 (08:33→13:24)
[2019-02-26] MEDS: FLINTSTONES COMPLETE CHEWABLE TAB PO SCH (08:33)
[2019-02-26] MEDS: POTASSIUM CHLORIDE 10 MEQ TABCR PO SCH (08:33)
[2019-02-26] MEDS: METOPROLOL TARTRATE 50 MG TAB PO SCH (08:33)
[2019-02-26] MEDS: FUROSEMIDE 20 MG TAB PO SCH (08:33)
[2019-02-26] MEDS ORDERED: ATORVASTATIN 20 MG TAB PO SCH (09:00)
[2019-02-26] MEDS ORDERED: ASPIRIN 81 MG ECTAB PO SCH (09:00)
[2019-02-26] MEDS ORDERED: INSULIN GLARGINE SOLOSTAR 100 UNITS/ML 3 ML PEN SC SCH (09:00)
[2019-02-26] MEDS: INSULIN ASPART 100 UNITS/ML 3 ML PEN SC SCH ×2 (09:02→13:26)
--- NOTE | 2019-02-26 09:33 | Hospitalist Progress Note ---
Date of Service February 26, 2019 Results & Data Vital Signs (Past 12 Hours) Vital Signs Temp Pulse Pulse Resp BP BP Pulse Ox 02/26/19 07:05 36.6 C 103 H 19 105/67 94 02/26/19 01:10 83 18 94 02/25/19 23:00 36.9 C 87 18 105/68 94 02/25/19 21:57 97 H 16 96
[2019-02-26] MEDS: cefTRIAXone SODIUM 2,000 MG in DEXTROSE 5% 50 ML IV SCH (12:52)
--- NOTE | 2019-02-26 14:05 | Consultation ---
Date of Consultation February 26, 2019 Assessment & Plan (1) Chronic venous insufficiency: Pt with BLE edema and signs of chronic venous insufficiency. Pt with easily palpable distal pulses and sx inconsistent with arterial claudication. Arteiral US demonstrates mild diffuse disease. No indications for vascular surgical intervention at this time. Do recommend pt wear graduated compression therapy to BLE to decrease edema and sx of leg pain with dependency. Can be eval at [facility] as outpt to measure for appropriately fitting knee high compression. Please call if needed. Present on Admission?: Yes History of Present Illness Reason for Consultation: PAD Attending Physician: Seven Sosa DO History of Present Illness 63 yo m with multiple medical problems, including DMII, RANDY, kidney stones, hx DVT, CKD, a fib, CHF, morbid obesity, admitted with supratherapeutic INR, generalized weakness, anemia, seen in consultation today for PAD and leg pain. Pt states has had BLE edema for years since his first RLE DVT. Has had occasional pain in BLE since that time, but notes it was signifiantly worse just prior to admission. Admits arm and leg pain worse than usual at that time. Pain has improved since admission. Pt states he does not ambulate signifiant distances d/t recent hospital and rehab stay for general weakness. Notes intermittent pain in BLE when hanging down and when ambulating. Pain improved with elevation of his legs, which he tries to do as much as possible. Denies discoloration, rest pain, ulcerations. Denies fever, chills, chest pain, SOB, abd pain, N/V, other complaints. Pt nonsmoker. Arterial US demonstrates mild diffuse arterial disease BLE without focal stenosis. Allergies Allergy/AdvReac Type Severity Reaction Status Date / Time No Known Allergies Allergy Unverified 02/05/19 13:57 Home Medications Home Medications Medication Instructions Recorded Confirmed Type warfarin 7.5 mg tablet 7.5 mg PO .COMPLEX #30 tab 10/14/18 02/24/19 Rx ascorbic acid (vitamin C) [Vitamin 500 mg PO DAILY 01/03/19 02/24/19 History C] calcium-vitamin D3-vitamin K 1 tab PO DAILY 01/03/19 02/24/19 History [Viactiv] cholecalciferol (vitamin D3) 400 unit PO DAILY 01/03/19 02/24/19 History [Vitamin D3] fexofenadine [Anju Allergy] 180 mg PO DAILY 01/03/19 02/24/19 History glimepiride 2 mg PO QDB 01/03/19 02/24/19 History metoprolol tartrate 50 mg PO BID 01/03/19 02/24/19 History omeprazole magnesium [Prilosec OTC] 20 mg PO DAILY 01/03/19 02/24/19 History oxybutynin chloride 5 mg PO TID 01/03/19 02/24/19 History pediatric multivitamin no.49 1 tab PO DAILY 01/03/19 02/24/19 History [Flintstones Gummies] sennosides-docusate sodium 1 tab PO DAILY 01/03/19 02/24/19 History [Senna-S] diltiazem HCl 120 mg PO DAILY 02/24/19 02/24/19 History furosemide 20 mg PO DAILY 02/24/19 02/24/19 History potassium chloride 10 meq PO DAILY 02/24/19 02/24/19 History Patient History Medical History Atrial fibrillation CHF (congestive heart failure) CKD (chronic kidney disease), stage III Kidney stones Morbid obesity with BMI of 50.0-59.9, adult Surgical History History of nephrostomy History of Abhijit-en-Y gastric bypass Social History Preferred Language: Taiwanese Communication Ability: Effective Sap Architect Required: No Beliefs That Will Affect Care: None marital status: Single Current Living Situation: Alone current occupational status: employed Other Information That Helps Us Care for You: No Feels Safe at Home: Yes Safety Concerns: Feels Safe At This Time Smoking Status: Never smoker Hx Alcohol Use: Yes Alcohol type: beer Hx Substance Use: No Review of Systems Review of Systems: All systems reviewed & are unremarkable except as noted in HPI & below Physical Exam Constitutional: WD/WN, vitals as above + morbidly obese, healthy appearing and + disheveled; not in distress Eyes: PERRL, conjunctivae normal, anicteric sclerae ENMT: external ear and nose normal, oropharynx normal Ears: no hearing impairment Neck: trachea midline, no thyromegaly Respiratory: normal respiratory effort, lungs clear to auscultation Auscultation: + diminished lung sounds Cardiovascular: Rate/Rhythm: + irregularly irregular Vessels: femoral pulses present, posterior tibial pulses present (BLE +1), dorsalis pedis pulses present (BLE +3), brachial pulses present and radial pulses present; no carotid bruit Extremities: normal capillary refill, + pedal edema and + edema Gastrointestinal (Abdomen): normal bowel sounds, soft, nontender, no hepatosplenomegaly Musculoskeletal: no cyanosis or clubbing, extremities motor strength 5/5 Skin: no rashes, warm and dry + dry skin (BLE hemosiderin deposits/venous insufficiency) Neurologic: moves all extremities; no focal motor deficits and not confused Psychiatric: A+Ox3, euthymic affect Results & Data Vital Signs (Past 12 Hours) Vital Signs Temp Pulse Resp BP Pulse Ox 02/26/19 07:05 36.6 C 103 H 19 105/67 94
[2019-02-26] MEDS: WARFARIN SOD 5 MG TAB PO SCH (15:41)
--- NOTE | 2019-02-26 16:22 | Discharge Summary ---
Date of Service February 26, 2019 Admission HPI Per Admitting Provider Patient is a 63 years old male with past medical history of morbid obesity, CKD stage III, obstructive uropathy, chronic diastolic congestive heart failure, atrial fibrillation's who presents to the emergency room with a complaint of body aches for 1 to 2 days. Patient is on Coumadin for A. fib's. His INR is elevated to 10.4. Patient has A. fib's with RVR. Patient denies of fever, chills, chest pain, shortness of breath, abdominal pain, frequency, urgency,, syncope, near syncope. Labs are reviewed which shows: WBC is 10.82, hemoglobin 9, hematocrit 28.8, platelets 288, sodium 136, potassium 4.3, chloride 109, anion gap 1, BUN 28, creatinine 1. 97, GFR 35.6, albumin 2.4. Urine analysis: High leukocyte esterase, urine bacteria 4+.Chest x-ray shows cardiomegaly with volume overload and congestive changes no sharon pulmonary edema. Decision was made to admit patient for observation on telemetry body aches, urinary tract infection and supratherapeutic INR. Admission Exam Per Admitting Provider Constitutional: WD/WN, vitals as above + morbidly obese Eyes: PERRL, conjunctivae normal, anicteric sclerae ENMT: external ear and nose normal, oropharynx normal Neck: trachea midline, no thyromegaly Respiratory: Auscultation: + wheezes Cardiovascular: Rate/Rhythm: + irregularly irregular Vessels: dorsalis pedis pulses present Extremities: + pedal edema Gastrointestinal (Abdomen): normal bowel sounds, soft, nontender, no hepatosplenomegaly Musculoskeletal: no cyanosis or clubbing, extremities motor strength 5/5 Skin: no rashes, warm and dry Neurologic: patellar DTR's 2+ bilat, sensation intact Psychiatric: A+Ox3, euthymic affect Lymphatic: no cervical or axillary lymphadenopathy Principal Diagnosis elevated INR, anemia, UTI, limb claudication Discharge Exam Constitutional well developed and + morbidly obese Respiratory normal respiratory effort, lungs clear to auscultation Cardiovascular Heart Sounds: no murmur Extremities: + edema (1+ bilateral LE with signs of venous stasis skin changes) Gastrointestinal (Abdomen) normal bowel sounds, soft, nontender, no hepatosplenomegaly Skin no leg hair below mid-conti bilaterally Psychiatric A+Ox3, euthymic affect Discharge Data Allergies Allergy/AdvReac Type Severity Reaction Status Date / Time No Known Allergies Allergy Unverified 02/05/19 13:57 Consultations 02/24/19 12:21 ED Decision to Admit Stat 02/25/19 18:22 Consult AC event planner Routine Consult Vascular Surgery Routine 02/26/19 09:52 Consult AC event planner Routine Ordered Studies 02/25/19 14:15 US arterial duplex LE BI Routine Hospital Course (1) Elevated INR: 63 yo M PMHx nephrolithiasis, AFib on chronic AC with warfarin, DM2, CHF, CKD stage III admitted for elevated INR to 10.4 found to have complicated UTI in the setting of current nephrolithiasis with stent in place; also with cramping leg pains. Elevated INR: - Pt admitted with INR of 10.4; given 10u Vitamin K and now with INR of 1.7, same as yesterday. - No signs or symptoms of active bleeding. - Have advised patient to resume home regimen of 7.5mg daily except Sunday and (half of a 7.5mg pill those days). - For INR check on Sunday. - Will require close follow up with PCP regarding titration of dosages. Complicated UTI with current obstructive uropathy s/p stenting: - Pt 6 weeks ago had stent placed for left sided obstructive uropathy; for lithotripsy by Dr. Omalley in [facility] 04/11/2019. - Pt with UA positive for UTI, UCx growing gram negative rods. - Started on Rocephin, deescalated to cefixime for 7 more days. Would consider suppressive Abx therapy after treatment course until lithotripsy. - Pt afebrile and without leukocytosis. No flank pain. Bilateral claudication of lower extremities: - Bilateral LE arterial duplex showed moderate arterial occlusive change of the small vessels of the lower right and left legs without stenosis at the level of the thighs. - Have consulted Vascular Surgery; no intervention surgically at this time. - Started on asa 81 mg daily and atorvastatin 20mg given LDL on the low side. - Would benefit from walking, compression stockings. Has Diabetic clinic follow up for fitting. Anemia: - Pt's Hgb since 2018 has dropped from 13.4 -> 8.2 this admission. - Pt reports significant amount of hematuria with impacted stone. - No other signs or symptoms of bleeding. - Will need outpatient follow up. Would recommend colonoscopy given pt has not had one in the past. AFib/Hx of DVT: - Pt on chronic warfarin therapy. Reports that he used to be on alternating doses of 3.725g and 7.5mg before his most recent admission to [facility]. At that time states that he was told to keep taking 7.5mg daily which he has done for nearly 6 weeks; this suggests that he may have been getting ~5 extra milligrams of warfarin weekly for 6 weeks which would explain his suddenly high levels. - No recent changes in diet that would explain this drastic increase. - Advised pt to resume home regimen of 7.5mg all days except Sunday/ (half pill those days). Repeat INR Sunday. DM2: - Pt's Hgb A1c this admission is 6.1, suggesting good control on glimepiride. - DM2 diet. CHF: - Pt with Hx of CHF most recent Echo 02/24/2019 shows 55-60%, no wall motion abnormalities, mild LVH. - Pt's lungs clear and appears euvolemic; 1+ edema likely due to venous stasis. - BNP 1442. Improved in comparison to December 2018. - Low-sodium diet. - Continue Diltiazem 120 mg p.o. daily, metoprolol 50 mg p.o. twice daily. Potassium chloride 10 mEq p.o. daily. (2) Complicated UTI (urinary tract infection): (3) Claudication of both lower extremities: (4) Obstructive sleep apnea: (5) Anemia: Total Time Total Time Spent Total Time Spent (In Minutes): <30 Discharge Plan Discharge Items Patient Disposition: Home - Self-Care Reason For Visit: SUPRATHERAPEUTIC INR,BODY ACHES,UTI Discharge Diagnosis: Urinary Tract Infection, Elevated INR level, Poor arterial supply to legs Condition on Discharge: Good Activity: Resume your previous activity Non-emergency contact: Primary Care Provider Call non-emergency contact if: you have any medication questions, your symptoms worsen, your pain is worsening and your temperature is above 101 Follow-up/Referrals: Benitez Millan III, MD [Primary Care Provider] - Diet: Carb Consistent or DM2 Addtl Attending Provider Instructions: Mr. Monzon, you were seen at [facility] for several problems: 1) Urinary tract infection - we treated you with IV antibiotics, and will be sending you home with 7 more days of an antibiotic called cefixime to take once a day - once you finish with your antibiotics to treat the infection, please talk to your primary care doctor about starting a low dose "suppressive" antibiotic to take until you see urology for your lithotripsy - this is to make sure you do not develop another infection - our nurse navigators are reaching out to Dr. Omalley to see if we can move your appointment up earlier. We will let you know when we hear back - please take your first dose of oral antibiotics tomorrow - you have received your dose for today 2) High INR level - your INR level was very high on arrival, it was 1.7 on your day of discharge - we recommend returning to your previous regimen of warfarin -> 7.5mg every day, with 1/2 a dose on Mondays and - you have received a dose of warfarin today, please take your next dose tomorrow - please have your INR checked on Sunday 3) Leg Pain - the ultrasound of your legs revealed poor blood flow - we started you on aspirin and atorvastatin (both medications that prevent worsening of blood flow to your legs) - we also recommend walking on a daily basis, until your legs hurt, as this will help promote the growth of new blood vessels - you were seen by the vascular doctors, who did not feel that surgical intervention of your legs was warranted - they did recommend seeing the diabetic foot care clinic ([phone]), and obtaining orthotics and graduated compression therapy stockings to help drain excess fluid from your legs 4) Anemia - your blood counts were lower on this admission than previous, 8.4 down from 13, likely from losing blood in your urine - thankfully, you do not appear to exhibit any signs or symptoms of bleeding at this time - we recommend discussing doing a colonoscopy with your primary care doctor to ensure that you do not have any areas in your bowel that are bleeding Please follow up with your primary care physician. We will be arranging an appointment for you with Dr. Millan and will contact you with the date and time. If you experience fever, chills, any trouble with urinating, any prolonged bleeding, or worsening leg pain, please seek medical attention. Pending Studies at Discharge: No Stand-Alone Forms: My [facility], Smoking Cessation Medications and DC Order Prescriptions: New atorvastatin 20 mg Tablet 20 mg PO QAM 30 Days Qty: 30 RF: 0 aspirin [Ecotrin Low Strength] 81 mg Tablet,Delayed Release (Dr/Ec) 81 mg PO QAM Qty: 30 RF: 3 cefixime 400 mg capsule 400 mg PO DAILY 7 Days Qty: 7 RF: 0 Continued warfarin 7.5 mg tablet 7.5 mg PO .COMPLEX Qty: 30 RF: 5 sennosides-docusate sodium [Senna-S] 8.6-50 mg Tablet 1 tab PO DAILY RF: 0 fexofenadine [Anju Allergy] 180 mg Tablet 180 mg PO DAILY RF: 0 ascorbic acid (vitamin C) [Vitamin C] 500 mg Tablet,Chewable 500 mg PO DAILY RF: 0 metoprolol tartrate 50 mg tablet 50 mg PO BID RF: 0 oxybutynin chloride 5 mg tablet 5 mg PO TID RF: 0 Prilosec OTC 20 mg Tablet,Delayed Release (Dr/Ec) 20 mg PO DAILY RF: 0 cholecalciferol (vitamin D3) [Vitamin D3] 400 unit Tablet,Chewable 400 unit PO DAILY RF: 0 Flintstones Gummies Tablet,Chewable 1 tab PO DAILY RF: 0 calcium-vitamin D3-vitamin K [Viactiv] 650 mg-12.5 mcg-40 mcg Tablet,Chewable 1 tab PO DAILY RF: 0 glimepiride 2 mg tablet 2 mg PO QDB RF: 0 potassium chloride 10 mEq tablet extended release 10 meq PO DAILY RF: 0 diltiazem HCl 120 mg capsule,extended release 12 hr 120 mg PO DAILY RF: 0 furosemide 20 mg tablet 20 mg PO DAILY RF: 0 Discharge Orders: Discharge Order (Routine); Ordered 02/26/19 Ordered By: Kirsten Case/Other Patient Handouts: A1C Admission Data Admit Date/Time: 02/24/19 12:45 Attending Provider: Seven Sosa Admit Provider: Shree Reyes Primary Care Provider: Benitez Millan III Other Providers: Shree Reyes ; Jared Montes Other Interventions: Discharge Summary Assessment (RN) Last Done: 02/26/19 16:04 DC Date/Time DO NOT enter until pt leaves facility: 02/26/19 16:48 Supervising Physician Co-Signing Physician Notes I personally examined the patient and verified all aquino points of history and exam, discussed case, and agree with decision making with Dr Tavarez. feeling ok. feels up to going home. no new issues. d/w case management to try to coordinate urology f/u much sooner. appreciate vascular input. Vitals noted, in general he is awake and alert pleasant no distress. HEENT normocephalic atraumatic mucous membranes moist. b/l LE changes appear similar to yesterday. no erythema. (+) DP pulses. no focal neuro deficits. lungs show unlabored breathing no accessory muscles good effort. Leg painvascular disease noted. discussed graded exercise. med management and risk reduction. feels safe to go home Positive urine culturegiven that he has both male and has a stone, hard to call this asymptomaticshe is certainly high risk for decompensation without treatment. Continue 3rd gen ceph pending culture results. case management working with urology to expedite his lithotripsy given that the stone is probably a nidus of infection. treat infection as complicated for a week - then if stone not out, would likely downgrade to chronic suppressive therapy. Anemiahe has had on again off again rather significant hematuria by his history, he is coagulopathic, and more than likely these 2 together are leading to his anemia. This does not show any acute hemorrhage, will definitely need to follow closely. He should have outpatient GI evaluationmostly simply because he is never had any type of colon cancer screening more so than anything symptomatic, given that we have a much more plausible alternate explanation. resumed coumadin, f/u INR 1/10. Ureterolithiasisstatus post cystoscopy and stenting about 8 weeks ago. Given the infection and given that the anemia more than likely relates to hematuria, these are both reasons that it makes sense to try to expedite lithotripsy. working with urology to expedite lithotripsy. Fortunately since he is not currently obstructed and does not represent crisis level emergency, but more something that would do him benefit to have expedited. Coumadin related coagulopathyhe notes that his Coumadin dose had been raised on discharge from [facility], more than likely his blood slowly got thinner. It is now corrected. resumed coumadin - follow INR closely Otherwise as above. stable for home. Resident Activity Tracking Resident Involvement: Resident Care Provided Care Provided: Adult [facility]
--- NOTE | 2019-02-26 18:41 | Billing Data ---
Date of Service February 26, 2019 Coding Level of Care Code 01630 OBS Care - Discharge
== END 2019-02-26 16:48 | disposition home or self-care (01) ==
LOC: 2E 09:01 → ED 09:01 → SUATTDRO 12:45 → 2E 14:24 → 3N 02-25 16:10

== ENCOUNTER 2021-04-06 13:59 | Inpatient (IN) ==
[2021-04-06 15:31] LABS: Basophils # (auto) 0.02 K/uL (0-0.2); Basophils % (auto) 0.2 %; Eosinophils # (auto) 0.19 K/uL (0-0.5); Hemoglobin 13.7 g/dL (14.0-18.0); Immature Granulocytes # (auto) 0.06 K/uL (0.00-0.02); Immature Granulocytes % (auto) 0.6 %; Lymphocytes # (auto) 0.75 K/uL (1.2-3.4); Lymphocytes % (auto) 7.8 %; Mean Corpuscular Hgb Conc 32.6 g/dL (32-36); Mean Corpuscular Volume 91.9 fL (80-100); Mean Platelet Volume 9.6 fL (7.4-10.4); Monocytes # (auto) 0.75 K/uL (0.11-0.59); Monocytes % (auto) 7.8 %; Neutrophils # (auto) 7.82 K/uL (1.4-6.5); Neutrophils % (auto) 81.6 %; Platelet Count 270 K/uL (130-400); RDW Coefficient of Variation 14.9 % (11.5-14.5); RDW Standard Deviation 50.5 fL (36.4-46.3); Red Blood Count 4.57 M/uL (4.7-6.1); White Blood Count 9.59 K/uL (4.8-10.8)
[2021-04-06 15:51] LABS: Alanine Aminotransferase 20 U/L (7-52); Albumin Globulin Ratio 0.9 (0.9-2); Albumin Level 3.7 gm/dl (3.4-5.0); Alkaline Phosphatase 108 U/L (34-104); Anion Gap 6 (3-11); Aspartate Aminotransferase 18 U/L (13-39); BUN Creatinine Ratio 18.7 (10-20); Bilirubin,Total 0.6 mg/dl (0.2-1.0); Blood Urea Nitrogen 31 mg/dl (6-23); Calcium 9.1 mg/dl (8.5-10.1); Carbon Dioxide 27 mmol/L (21-32); Chloride 106 mmol/L (98-107); Est GFR (African American) 50.1 ml/min; Est GFR (Non-African American) 43.2 ml/min; Glucose 128 mg/dl (70-99(Fasting)); Potassium 4.3 mmol/L (3.5-5.1); Sodium 139 mmol/L (136-145); Total Protein 7.7 gm/dl (6.0-8.3)
[2021-04-06] MEDS ORDERED: SODIUM CHLORIDE 0.9% 1000ML 1,000 ML IV ONE (16:33)
--- NOTE | 2021-04-06 16:37 | Emergency Department Note ---
Impression & Plan Diarrhea, Acute UTI (urinary tract infection) [place] ED Provider Note HPI: The patient is a morbidly obese 65-year-old male with history of atrial fibrillation, on anticoagulation, type 2 diabetes, presents the emergency department with a chief complaint of diarrhea that has been relatively persistent for about the past 2 weeks. Patient states that he has been taking Imodium for the past 2 days at the advice of his PCP without any relief. Patient denies any abdominal pain, denies any vomiting, states he has had some fevers at home recently. States he is vaccinated against COVID-19 x3. On arrival to the ED the patient is in no acute distress, he is hemodynamically stable, saturating well on room air. ROS: -GI: Diarrhea *10 point review systems was conducted and is otherwise negative unless stated above *Outpatient medications and allergy history reviewed PE: General: Alert, elevated BMI, NAD HEENT: Normocephalic, atraumatic Eyes: Extraocular eye movement is intact, no scleral erythema Pulmonary: Clear to auscultation bilaterally, no wheezing Cardio: Regular rate and rhythm GI: Abdomen is soft, nontender, multiple soft herniations felt over the abdominal wall consistent with the patient surgical history, no tenderness to palpation : No suprapubic tenderness MSK: No evidence of trauma or malformation of the extremities, no edema Skin: No evidence of rash Neuro: Alert, no focal deficits Psychiatric: Cooperative ekg monitor: - An order was placed for continuous cardiac monitoring - Patient was noted to be in sinus rhythm with rate of 100 EKG: Rate: 94 Rhythm: Sinus tachycardia Intervals: QRS 140, QTc 495 ST changes: No ST elevation Time: 1824 Medical Decision Making: Patient presented to the emergency department with multiple issues, he states he is very weak, states he has had diarrhea now for 2 weeks, states he also has foul-smelling urine. Urinalysis shows evidence of 3+ blood, greater than 30 white cells, 1+ leukocyte esterase however nitrite negative. Will send for culture, patient was started on Macrobid. Lab work otherwise is largely at baseline. I did order stool PCR, patient stated that he was unable to give a sample despite having diarrhea for 2 weeks. I discussed all the above findings with the patient and his cousin at the bedside, at this time patient was placed for discharge for urinary tract infection, placed on Macrobid, I did attempt to get CT imaging however the patient stated that he did not want to have a CT done because he gets back pain when he lays down on the CT table. He is morbidly obese. He denies any current abdominal pain however he does have blood in his urine and has a history of kidney stone with urinary tract infection which is why I did want to obtain the scan. Patient is aware of the risk of not obtaining the scan. Shortly after the patient was placed for discharge, I was called back to the room by the RN, patient states he is not comfortable with discharge, states he is too weak to walk in his house, states he is unable to take care of himself and would be interested in placement in a rehab facility. I therefore did discuss the case with the consulting resident/hospitalist group for [facility], patient was admitted in stable condition for further care. Diagnosis: 1. Urinary tract infection with hematuria 2. Generalized weakness 3. Inability to ambulate, inability to to accomplish activities of daily living 4. Morbid obesity 5. CKD 6. Diarrhea Disposition: Admission Tanner Mclean DO Emergency Medicine Past Med/Surg History Medical History Atrial fibrillation CHF (congestive heart failure) CKD (chronic kidney disease), stage III Kidney stones Morbid obesity with BMI of 50.0-59.9, adult New onset atrial fibrillation Pyelonephritis of left kidney Urinary pain Surgical History History of nephrostomy History of Abhijit-en-Y gastric bypass Social History Smoking Status: Never smoker Hx Alcohol Use: Yes Alcohol type: beer Hx Substance Use: No Preferred Language: Mauritian Communication Ability: Effective Registered Nurse Step Down Required: No Beliefs That Will Affect Care: None marital status: Single Current Living Situation: Alone current occupational status: employed Feels Safe at Home: Yes Assistive Devices: Glasses and Walker Allergies Allergies Allergy/AdvReac Type Severity Reaction Status Date / Time No Known Allergies Allergy Verified 04/06/21 19:09 Home Meds Home Medications Medication Instructions Recorded Confirmed ascorbic acid (vitamin C) 500 mg 500 mg PO DAILY 01/03/19 04/06/21 chewable tablet (Vitamin C) calcium 650 mg-vitamin D3 12.5 1 tab PO DAILY 01/03/19 04/06/21 mcg-vitamin K 40 mcg chewable tablet (Viactiv) cholecalciferol (vitamin D3) 10 400 unit PO DAILY 01/03/19 04/06/21 mcg (400 unit) chewable tablet (Vitamin D3) fexofenadine 180 mg tablet 180 mg PO DAILY 01/03/19 04/06/21 (Anju Allergy) omeprazole magnesium 20 mg 20 mg PO DAILY 01/03/19 04/06/21 tablet,delayed release (Prilosec OTC) pediatric multivitamin no.49 1 tab PO DAILY 01/03/19 04/06/21 (Flintstones Gummies) sennosides 8.6 mg-docusate sodium 1 tab PO DAILY 01/03/19 04/06/21 50 mg tablet (Senna-S) oxybutynin chloride 5 mg tablet 5 mg PO BID tab 05/25/20 04/06/21 mirabegron 25 mg tablet,extended 25 mg PO DAILY 12/16/20 04/06/21 release 24 hr furosemide 20 mg tablet 20 - 40 mg PO DAILY 04/06/21 04/06/21 pantoprazole 40 mg tablet,delayed 40 mg PO DAILY 04/06/21 04/06/21 release Previous Rx's Medication Instructions Recorded aspirin 81 mg tablet,delayed 81 mg PO QAM #30 tab 02/26/19 release (Ecotrin Low Strength) glimepiride 2 mg tablet 2 mg PO QDB #30 tab 07/13/20 metoprolol tartrate 50 mg tablet 50 mg PO BID #60 tab 07/13/20 atorvastatin 20 mg tablet 20 mg PO DAILY #30 tab 11/26/20 potassium chloride 10 mEq 10 meq PO DAILY #30 tab 12/07/20 tablet,extended release diltiazem HCl 120 mg 120 mg PO DAILY #30 cap 01/11/21 capsule,extended release 12 hr warfarin 7.5 mg tablet 7.5 mg PO .COMPLEX #30 tab 02/10/21 nitrofurantoin 100 mg PO BID 5 Days #10 cap 04/06/21 monohydrate/macrocrystals 100 mg capsule (Macrobid) Results & Data (ED) Vital Signs Vital Signs - 24 hr 04/06/21 14:08 04/06/21 16:40 04/06/21 17:00 Temperature 36.3 C L Temperature Source Temporal Artery Scan Pulse Rate 77 96 H Pulse Rate [Right Finger] 82 Pulse Rate from SpO2 Sensor 99 H Pulse Rhythm Regular Pulse Rhythm [Right Finger] Regular Pulse Strength Normal Pulse Strength [Right Finger] Normal Respiratory Rate 20 22 21 Respiratory Effort / Characteristics Non-Labored Spontaneous Labored Respiratory Depth Normal Normal Respiratory Pattern Regular Regular Blood Pressure 156/96 H 145/81 H Blood Pressure [Left Arm] 149/83 H Blood Pressure Mean 116 102 Blood Pressure Mean [Left Arm] 105 Blood Pressure Position Sitting Blood Pressure Position [Left Arm] Lying Pulse Oximetry 97 97 97 Oxygen Delivery Method Room Air Room Air Sepsis Recent Fever Within 48 Hours No Sepsis New/Unexplained Change in Mental Status No Sepsis Action Taken by Nursing No Action Required 04/06/21 18:00 04/06/21 19:04 Temperature Temperature Source Pulse Rate 84 100 H Pulse Rate [Right Finger] Pulse Rate from SpO2 Sensor 83 Pulse Rhythm Pulse Rhythm [Right Finger] Pulse Strength Pulse Strength [Right Finger] Respiratory Rate 20 20 Respiratory Effort / Characteristics Respiratory Depth Respiratory Pattern Blood Pressure 122/68 145/91 H Blood Pressure [Left Arm] Blood Pressure Mean 86 109 Blood Pressure Mean [Left Arm] Blood Pressure Position Blood Pressure Position [Left Arm] Pulse Oximetry 97 96 Oxygen Delivery Method Sepsis Recent Fever Within 48 Hours Sepsis New/Unexplained Change in Mental Status Sepsis Action Taken by Nursing Laboratory Data Result diagrams: 04/06/21 15:20 04/06/21 15:20 Lab Results 04/06/21 04/06/21 04/06/21 Range/Units 15:20 15:20 15:20 WBC 9.59 (4.8-10.8) K/uL RBC 4.57 L (4.7-6.1) M/uL Hgb 13.7 L (14.0-18.0) g/dL Hct 42.0 (42-52) % MCV 91.9 (80-100) fL MCH 30.0 (25-34) pg MCHC 32.6 (32-36) g/dL RDW Std Deviation 50.5 H (36.4-46.3) fL RDW Coeff of Evan 14.9 H (11.5-14.5) % Plt Count 270 (130-400) K/uL MPV 9.6 (7.4-10.4) fL Immature Gran % (Auto) 0.6 % Neut % (Auto) 81.6 % Lymph % (Auto) 7.8 % [place] % (Auto) 7.8 % Eos % (Auto) 2.0 % Baso % (Auto) 0.2 % Neut # (Auto) 7.82 H (1.4-6.5) K/uL Lymph # (Auto) 0.75 L (1.2-3.4) K/uL [place] # (Auto) 0.75 H (0.11-0.59) K/uL Eos # (Auto) 0.19 (0-0.5) K/uL Baso # (Auto) 0.02 (0-0.2) K/uL Immature Gran # (Auto) 0.06 H (0.00-0.02) K/uL PT 16.7 H (9.0-12.0) Seconds INR 1.7 H (0.9-1.1) Sodium 139 (136-145) mmol/L Potassium 4.3 (3.5-5.1) mmol/L Chloride 106 (98-107) mmol/L Carbon Dioxide 27 (21-32) mmol/L Anion Gap 6 (3-11) BUN 31 H (6-23) mg/dl Creatinine 1.66 H (0.6-1.4) mg/dl Est Cr Clr Drug Dosing Not Reportable Est GFR ( Amer) 50.1 ml/min Est GFR (Non-Af Amer) 43.2 ml/min BUN/Creatinine Ratio 18.7 (10-20) Glucose 128 H (70-99(Fasting)) mg/dl Calcium 9.1 (8.5-10.1) mg/dl Total Bilirubin 0.6 (0.2-1.0) mg/dl AST 18 (13-39) U/L ALT 20 (7-52) U/L Alkaline Phosphatase 108 H (34-104) U/L Total Protein 7.7 (6.0-8.3) gm/dl Albumin 3.7 (3.4-5.0) gm/dl Globulin 4.0 (2.5-4.0) gm/dl Albumin/Globulin Ratio 0.9 (0.9-2) Urine Color Urine Appearance (Clear) Urine pH (4.5-7.5) Ur Specific [place] (1.000-1.030) Urine Protein (Negative) Urine Glucose (UA) (Negative) Urine Ketones (Negative) Urine Blood (Negative) Urine Nitrite (Negative) Urine Bilirubin (Negative) Urine Urobilinogen (Negative) Ur Leukocyte Esterase (Negative) Urine WBC (Auto) (0-5) /hpf Urine RBC (Auto) (0-4) /hpf U Hyaline Cast (Auto) (0-5) /lpf U Epithel Cells (Auto) (0-5) /lpf Urine Bacteria (Auto) (Negative) SARS-CoV-2, RNA, NAAT (NEGATIVE) 04/06/21 04/06/21 Range/Units 15:59 16:38 WBC (4.8-10.8) K/uL RBC (4.7-6.1) M/uL Hgb (14.0-18.0) g/dL Hct (42-52) % MCV (80-100) fL MCH (25-34) pg MCHC (32-36) g/dL RDW Std Deviation (36.4-46.3) fL RDW Coeff of Evan (11.5-14.5) % Plt Count (130-400) K/uL MPV (7.4-10.4) fL Immature Gran % (Auto) % Neut % (Auto) % Lymph % (Auto) % [place] % (Auto) % Eos % (Auto) % Baso % (Auto) % Neut # (Auto) (1.4-6.5) K/uL Lymph # (Auto) (1.2-3.4) K/uL [place] # (Auto) (0.11-0.59) K/uL Eos # (Auto) (0-0.5) K/uL Baso # (Auto) (0-0.2) K/uL Immature Gran # (Auto) (0.00-0.02) K/uL PT (9.0-12.0) Seconds INR (0.9-1.1) Sodium (136-145) mmol/L Potassium (3.5-5.1) mmol/L Chloride (98-107) mmol/L Carbon Dioxide (21-32) mmol/L Anion Gap (3-11) BUN (6-23) mg/dl Creatinine (0.6-1.4) mg/dl Est Cr Clr Drug Dosing Est GFR ( Amer) ml/min Est GFR (Non-Af Amer) ml/min BUN/Creatinine Ratio (10-20) Glucose (70-99(Fasting)) mg/dl Calcium (8.5-10.1) mg/dl Total Bilirubin (0.2-1.0) mg/dl AST (13-39) U/L ALT (7-52) U/L Alkaline Phosphatase (34-104) U/L Total Protein (6.0-8.3) gm/dl Albumin (3.4-5.0) gm/dl Globulin (2.5-4.0) gm/dl Albumin/Globulin Ratio (0.9-2) Urine Color Yellow Urine Appearance Clear (Clear) Urine pH 5.0 (4.5-7.5) Ur Specific [place] 1.008 (1.000-1.030) Urine Protein Negative (Negative) Urine Glucose (UA) Negative (Negative) Urine Ketones Negative (Negative) Urine Blood 3+ H (Negative) Urine Nitrite Negative (Negative) Urine Bilirubin Negative (Negative) Urine Urobilinogen Negative (Negative) Ur Leukocyte Esterase 1+ H (Negative) Urine WBC (Auto) >30 H (0-5) /hpf Urine RBC (Auto) >30 H (0-4) /hpf U Hyaline Cast (Auto) 0 (0-5) /lpf U Epithel Cells (Auto) 0-5 (0-5) /lpf Urine Bacteria (Auto) 3+ H (Negative) SARS-CoV-2, RNA, NAAT NEGATIVE (NEGATIVE) Administered Medications Discontinued Medications Sodium Chloride (Nss 1000ml) 1,000 mls @ 999 mls/hr IV .[id number] ONE Stop: 04/06/21 17:33 Last Infusion: 04/06/21 17:33 Dose: 0 mls/hr Documented by: [id number] Admin: 04/06/21 16:39 Dose: 999 mls/hr Documented by: [id number] Nitrofurantoin Macrocrystals (Nitrofurantoin Monohydrate 100 Mg Cap) 100 mg PO NOW STA Stop: 04/06/21 17:49 Last Admin: 04/06/21 18:21 Dose: 100 mg Documented by: [id number] Cosigned by: [id number] Discharge Plan Visit Data Chief Complaint: Illness Stated Complaint: Foul-smelling urine, diarrhea ED Provider: Tanner Mclean Discharge Problem: Diarrhea, Acute UTI (urinary tract infection) Patient Disposition: Home - Self-Care Condition: Good Discharge Instructions Krames/Other Patient Handouts: ED Diarrhea, Unknown Cause, ED [facility] UTI Forms Stand Alone Forms: My [facility], Virtual Emergency Department, Important Visit Information Prescriptions Prescriptions: New nitrofurantoin monohyd/m-cryst [Macrobid] 100 mg capsule 100 mg PO BID 5 Days Qty: 10 RF: 0 No Action glimepiride 2 mg tablet 2 mg PO QDB Qty: 30 RF: 11 metoprolol tartrate 50 mg tablet 50 mg PO BID Qty: 60 RF: 11 atorvastatin 20 mg tablet 20 mg PO DAILY Qty: 30 RF: 5 potassium chloride 10 mEq tablet extended release 10 meq PO DAILY Qty: 30 RF: 5 diltiazem HCl 120 mg capsule,extended release 12 hr 120 mg PO DAILY Qty: 30 RF: 11 warfarin 7.5 mg tablet 7.5 mg PO .COMPLEX Qty: 30 RF: 5 mirabegron 25 mg tablet extended release 24 hr 25 mg PO DAILY RF: 0 oxybutynin chloride 5 mg tablet 5 mg PO BID RF: 0 sennosides-docusate sodium [Senna-S] 8.6-50 mg Tablet 1 tab PO DAILY RF: 0 fexofenadine [Anju Allergy] 180 mg Tablet 180 mg PO DAILY RF: 0 ascorbic acid (vitamin C) [Vitamin C] 500 mg Tablet,Chewable 500 mg PO DAILY RF: 0 omeprazole magnesium [Prilosec OTC] 20 mg Tablet,Delayed Release (Dr/Ec) 20 mg PO DAILY RF: 0 cholecalciferol (vitamin D3) [Vitamin D3] 400 unit Tablet,Chewable 400 unit PO DAILY RF: 0 Flintstones Gummies Tablet,Chewable 1 tab PO DAILY RF: 0 calcium-vitamin D3-vitamin K [Viactiv] 650 mg-12.5 mcg-40 mcg Tablet,Chewable 1 tab PO DAILY RF: 0 aspirin [Ecotrin Low Strength] 81 mg Tablet,Delayed Release (Dr/Ec) 81 mg PO QAM Qty: 30 RF: 3 pantoprazole 40 mg Tablet,Delayed Release (Dr/Ec) 40 mg PO DAILY RF: 0 furosemide 20 mg tablet 20 - 40 mg PO DAILY RF: 0 Referrals Referrals: Benitez Millan III, MD [Physician] - Discharge Problem: Diarrhea Qualifiers: Diarrhea type: unspecified type Qualified Code(s): R19.7 - Diarrhea, unspecified
[2021-04-06 17:05] LABS: Appearance Urine Clear (Clear); Bacteria Urine Automated 3+ (Negative); Bilirubin Urine Negative (Negative); Blood Urine 3+ (Negative); Cast Urine Automated 0 /lpf (0-5); Color Urine Yellow; Epithelial Cell Urine Auto 0-5 /lpf (0-5); Glucose Urine UA Negative (Negative); Ketones Urine Negative (Negative); Leukocyte Esterase Urine 1+ (Negative); Nitrite Urine Negative (Negative); Protein Urine Negative (Negative); RBC Urine Automated >30 /hpf (0-4); Specific Gravity Urine 1.008 (1.000-1.030); Urobilinogen Urine Negative (Negative); WBC Urine Automated >30 /hpf (0-5)
[2021-04-06] MEDS ORDERED: NITROFURANTOIN MONOHYDRATE 100 MG CAP PO STA (17:48)
[2021-04-06 18:34] LABS: INR 1.7 (0.9-1.1); Prothrombin Time 16.7 Seconds (9.0-12.0)
--- NOTE | 2021-04-06 18:59 | History & Physical Report ---
Date of Service April 06, 2021 Assessment & Plan (1) Acute UTI (urinary tract infection): Plan: -With complaints of decreased urinary frequency, foul odor, and some blood seen over the past two weeks. Denies dysuria or increased urgency or frequency. Does have a hx of kidney stones in 2019 requiring stent placement and lithotripsy; today he is afebrile, without leukocytosis or flank pain. -UA positive for bacteria, blood, WBCs, and leuk esterase. Urine cx pending. -Previous urine cultures have grown MDR E. Coli as well as Proteus mirabilis, both shown to be sensitive to Zosyn. -Will start IV Zosyn 4.5g Q8, can tailor to urine culture results. -Patient received 1L NS in ED, will hold off on further IVF for now due to patient's HF history. Tolerating PO intake now. (2) Diarrhea: Plan: -Without blood seen in stool; he is afebrile, without leukocytosis. No recent abx use or hx of C diff. -Has been taking Imodium for two days which he states has helped somewhat. -Stool PCR panel ordered, pending. (3) Generalized weakness: Plan: -Suspect it is due to both volume depletion and UTI. -Started on Zosyn and received 1 L NS IVF, will encourage PO intake and continue to monitor. (4) Type 2 diabetes mellitus: Plan: -Seems to be adequately controlled based on A1c from November which was 6.5. -Hold glimepiride during admission. -Accuchecks ACHS with sliding scale insulin, depending on sugars, will consider basal insulin. -Heart Healthy/diabetic diet. (5) CHF (congestive heart failure): Plan: -Echo 02/24/2019 shows 55-60%, no wall motion abnormalities, mild LVH. -Volume status hard to appreciate due to pt body habitus. Lunges clear, no SOB, he does have b/l LE edema, likely this id due to chronic venous stasis. Patient takes 20-40 mg Lasix daily. Held tonight due to concern for volume depletion, but can restart tomorrow or tonight if he shows signs of being volume overloaded. -Continue Diltiazem 120 mg p.o. daily, metoprolol 50 mg p.o. twice daily. Potassium chloride 10 mEq p.o. daily. (6) CKD (chronic kidney disease), stage III: Plan: -BUN 31 and Cr 1.66, at baseline. -Received 1 L NS IVF in ED. Will hold off on further IVF as long as patient is able to maintain adequate PO intake. -Continue Vit D, KCl supplements. -Renally dose all medications, avoid nephrotoxic medications. (7) Atrial fibrillation: Plan: -On warfarin 7.5 mg QD except Mondays and , per records. INR today 1.7, PT 16.7. -Continue metoprolol 50 mg PO BID and diltiazem 120 mg PO QD. (8) Chronic venous insufficiency: Plan: -Chronic b/l LE edema, reportedly increased over the past two days. -Continue ASA 81 and atorvastatin 20 gm daily. (9) RANDY on CPAP: Plan: -CPAP at night. (10) History of Abhijit-en-Y gastric bypass: Plan: -SCDs ordered, patient on Warfarin. History of Present Illness Chief Complaint: generalized weakness Primary Care Provider: NO PCP Patient is a 64-year-old male past medical history of atrial fibrillation on anticoagulation, RANDY, HLD, HTN, chronic venous insufficiency, CHF, recurrent DVT DM2, gastric bypass, and CKD3 who presents today with generalized weakness over the past several days. Patient has been very frequent that two weeks ago, he began experiencing persistent diarrhea and dark, foul smelling urine. Denies blood in stool, and he is struggled to make it to the bathroom. He started taking Imodium two days ago at the advice of this PCP, which has started to give him some relief today, and also scheduled an appt with his urologist with [facility] in [place] for his urinary symptoms, which was scheduled for this Sunday, however over the past two days he has had body chills and feels weak, which prompted him to present to the ED for evaluation. He states his weakness is generalized, and he attributes it to the constant diarrhea that is causing him to be dehydrated. He has an appetite, but states everything he is eating and drinking is going right through him. State he has seen undigested pills in his stool. Additionally, he notes significant b/l lower extremity edema that has developed over the past several days. States he has some edema at baseline, however his legs are nearly double the size they normally are and he cannot get his shoes on. Denies chest pain/tightness, palpitations, shortness of breath, dyspnea on exertion, cough, dizziness, syncopal episodes, abdominal pain, nausea, vomiting, dysuria, VSS, BP 145/91, HR 100, 96% on RA. Work-up in the ED was significant for UA which was positive for bacteria, blood, WBCs, and leuk esterase. Alk phos elevated at 108, BUN/Cr at patient's baseline, glucose 128, no WBC elevation, but neutrophil:lymphocyte is 10.4. ED staff attempted to send patient for CT of abdomen and pelvis, however patient refused this due to severe discomfort and back pain it causes him to lay flat for imaging. Patient was to be discharged on Macrobid for his urinary infection, however he feels he is too weak to return home, fears he will fall, and is requesting hospitalization with planned placement to a rehab facility. Allergies Allergy/AdvReac Type Severity Reaction Status Date / Time No Known Allergies Allergy Verified 04/06/21 19:09 Home Medications Medication Instructions Recorded Confirmed Type ascorbic acid (vitamin C) 500 mg 500 mg PO DAILY 01/03/19 04/06/21 History chewable tablet (Vitamin C) calcium 650 mg-vitamin D3 12.5 1 tab PO DAILY 01/03/19 04/06/21 History mcg-vitamin K 40 mcg chewable tablet (Viactiv) cholecalciferol (vitamin D3) 10 400 unit PO DAILY 01/03/19 04/06/21 History mcg (400 unit) chewable tablet (Vitamin D3) fexofenadine 180 mg tablet 180 mg PO DAILY 01/03/19 04/06/21 History (Anju Allergy) omeprazole magnesium 20 mg 20 mg PO DAILY 01/03/19 04/06/21 History tablet,delayed release (Prilosec OTC) pediatric multivitamin no.49 1 tab PO DAILY 01/03/19 04/06/21 History (Flintstones Gummies) sennosides 8.6 mg-docusate sodium 1 tab PO DAILY 01/03/19 04/06/21 History 50 mg tablet (Senna-S) aspirin 81 mg tablet,delayed 81 mg PO QAM #30 tab 02/26/19 04/06/21 Rx release (Ecotrin Low Strength) oxybutynin chloride 5 mg tablet 5 mg PO BID tab 04/06/21 02/16/22 History glimepiride 2 mg tablet 2 mg PO QDB #30 tab 07/13/20 04/06/21 Rx metoprolol tartrate 50 mg tablet 50 mg PO BID #60 tab 07/13/20 04/06/21 Rx atorvastatin 20 mg tablet 20 mg PO DAILY #30 tab 11/26/20 04/06/21 Rx potassium chloride 10 mEq 10 meq PO DAILY #30 tab 12/07/20 04/06/21 Rx tablet,extended release mirabegron 25 mg tablet,extended 25 mg PO DAILY 12/16/20 04/06/21 History release 24 hr diltiazem HCl 120 mg 120 mg PO DAILY #30 cap 01/11/21 04/06/21 Rx capsule,extended release 12 hr warfarin 7.5 mg tablet 7.5 mg PO .COMPLEX #30 tab 02/10/21 04/06/21 Rx furosemide 20 mg tablet 20 - 40 mg PO DAILY 04/06/21 04/06/21 History nitrofurantoin 100 mg PO BID 5 Days #10 cap 04/06/21 04/06/21 Rx monohydrate/macrocrystals 100 mg capsule (Macrobid) pantoprazole 40 mg tablet,delayed 40 mg PO DAILY 04/06/21 04/06/21 History release Past Med/Surg History Medical History Atrial fibrillation CHF (congestive heart failure) CKD (chronic kidney disease), stage III Kidney stones Morbid obesity with BMI of 50.0-59.9, adult New onset atrial fibrillation Pyelonephritis of left kidney Urinary pain Surgical History History of nephrostomy History of Abhijit-en-Y gastric bypass Social History Smoking Status: Never smoker Second Hand Exposure: No; Hx Alcohol Use: No Hx Substance Use: No Preferred Language: Amharic Communication Ability: Effective 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 Eyes: No diplopia, no worsening or blurred vision ENT: normal hearing, no trouble swallowing Respiratory: No cough, sputum, dyspnea at rest or on exertion Cardiovascular: No chest pain, tightness or palpitations Abdomen: Reports constant diarrhea x2 weeks; No pain, nausea, vomiting Musculoskeletal: reports increase in baseline b/l LE edema; No joint pain, calf pain Neurologic: No weakness, numbness/tingling, or balance problems Psychiatric: No anxiety or depression Skin: No rash or itch Physical Exam Physical Exam: General: awake, alert, no apparent distress Head: Normocephalic, atraumatic ENT: PERRL, EOMI, no pharyngeal exudate, mucous membranes moist Chest: Clear to auscultation, on room air, no adventitious breath sounds Cardiac: Regular rate and rhythm, no murmur, no JVD, normal peripheral pulses, good capillary refill Abdominal: NABS x 4 quadrants, soft, nontender to palpation, no rebound, guarding or tenderness Extremities: B/l LE swelling with atrophic skin changes consistent w/ venous insufficiency; no open wounds, no erythema, calfs nontender to palpation Psych: Normal mood and affect Neuro: AAO x 3, strength intact bilaterally and rated 5/5, no motor deficits, speech is clear, no peripheral sensory deficits Skin: no rash or erythema Results & Data Results & Data ([facility]) Vital Signs (Past 12 Hours) Vital Signs Temp Pulse Pulse Resp BP BP Pulse Ox 04/06/21 18:00 84 20 122/68 97 04/06/21 17:00 96 H 21 145/81 H 97 04/06/21 16:40 82 22 149/83 H 97 04/06/21 14:08 36.3 C L 77 20 156/96 H 97 Laboratory Results Abnormal lab results 04/06/21 04/06/21 04/06/21 Range/Units 15:20 15:20 15:20 RBC 4.57 L (4.7-6.1) M/uL Hgb 13.7 L (14.0-18.0) g/dL RDW Std Deviation 50.5 H (36.4-46.3) fL RDW Coeff of Evan 14.9 H (11.5-14.5) % Neut # (Auto) 7.82 H (1.4-6.5) K/uL Lymph # (Auto) 0.75 L (1.2-3.4) K/uL Aiken # (Auto) 0.75 H (0.11-0.59) K/uL Immature Gran # (Auto) 0.06 H (0.00-0.02) K/uL PT 16.7 H (9.0-12.0) Seconds INR 1.7 H (0.9-1.1) BUN 31 H (6-23) mg/dl Creatinine 1.66 H (0.6-1.4) mg/dl Glucose 128 H (70-99(Fasting)) mg/dl Alkaline Phosphatase 108 H (34-104) U/L Urine Blood (Negative) Ur Leukocyte Esterase (Negative) Urine WBC (Auto) (0-5) /hpf Urine RBC (Auto) (0-4) /hpf Urine Bacteria (Auto) (Negative) 04/06/21 Range/Units 15:59 RBC (4.7-6.1) M/uL Hgb (14.0-18.0) g/dL RDW Std Deviation (36.4-46.3) fL RDW Coeff of Evan (11.5-14.5) % Neut # (Auto) (1.4-6.5) K/uL Lymph # (Auto) (1.2-3.4) K/uL Aiken # (Auto) (0.11-0.59) K/uL Immature Gran # (Auto) (0.00-0.02) K/uL PT (9.0-12.0) Seconds INR (0.9-1.1) BUN (6-23) mg/dl Creatinine (0.6-1.4) mg/dl Glucose (70-99(Fasting)) mg/dl Alkaline Phosphatase (34-104) U/L Urine Blood 3+ H (Negative) Ur Leukocyte Esterase 1+ H (Negative) Urine WBC (Auto) >30 H (0-5) /hpf Urine RBC (Auto) >30 H (0-4) /hpf Urine Bacteria (Auto) 3+ H (Negative) Code Status & VTE Plan Code Status DNR/DNI Supervising Physician Co-Signing Physician Notes Attending addendum: I have physically seen this patient, have supervised the KATRIN's activities, and agree with the H&P unless as otherwise noted. Assessment and Plan: Acute urinary tract infection/kidney stone history 2018 requiring stent and lithotripsy- History of multidrug-resistant E. coli and Proteus mirabilis Zosyn 4.5 g IV every 8 hours to cover those bacteria and other possibilities Follow urine culture and sensitivity IV fluids given in the ED or 1 L normal saline Diarrhea- Follow stool PCR results Generalized weakness- Secondary to the to above Remaining orders and notations as noted PG Care Time/CCT Total # of Minutes Spent Total Time Spent with Patient: Total time spent is greater than 50% in coordination of care (as documented) at patient's floor/unit and/or counseling patient: Coding Level of Care Code INT OBSERVATION CARE 70M LVL 3 Diagnoses Acute UTI (urinary tract infection) N39.0 Diarrhea R19.7 Diarrhea type: unspecified type Generalized weakness R53.1 Type 2 diabetes mellitus E11.9 Chronic kidney disease stage: stage 3 (moderate) Diabetes mellitus complication detail: with chronic kidney disease Diabetes mellitus complication status: with kidney complications 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: 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 use CHF (congestive heart failure) I50.9 CKD (chronic kidney disease), stage III N18.3 Atrial fibrillation I48.91 History of Abhijit-en-Y gastric bypass Z98.84 Chronic venous insufficiency I87.2 RANDY on CPAP G47.33; Z99.89 (1) Type 2 diabetes mellitus Chronic kidney disease stage: stage 3 (moderate) Diabetes mellitus complication detail: with chronic kidney disease Diabetes mellitus complication status: with kidney complications 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
[2021-04-06] MEDS ORDERED: PIPERACILLIN/TAZOBACTAM 4.5 GM in DEXTROSE 5% 100 ML IV SCH (20:16)
[2021-04-06] MEDS ORDERED: PIPERACILL/TAZOBAC CONSULT ACTIVE PRN (20:16)
[2021-04-06] MEDS ORDERED: WARFARIN SOD 7.5 MG TAB PO SCH (20:36)
[2021-04-06] MEDS ORDERED: PIPERACILLIN/TAZOBACTAM 4.5 GM in DEXTROSE 5% 100 ML IV ONE (22:00)
[2021-04-06] MEDS ORDERED: PIPERACILLIN/TAZOBACTAM 4.5 GM/120ML D5W IV ONE (22:12)
[2021-04-07] MEDS ORDERED: DEXTROSE 50% 50 ML SYRINGE IV PRN (00:38)
[2021-04-07] MEDS ORDERED: ONDANSETRON INJ 2 MG/ML 2 ML VIAL IV PRN (00:38)
[2021-04-07] MEDS ORDERED: GLUCOSE 40% GEL 15 GM TUBE PO PRN (00:38)
[2021-04-07] MEDS ORDERED: GLUCAGON FOR INJ 1 MG VIAL SQ PRN (00:38)
[2021-04-07] MEDS ORDERED: CARBOHYDRATES FOR HYPOGLYCEMIA PO PRN (00:38)
[2021-04-07] MEDS ORDERED: GLUCOSE 10 TABS/TUBE PO PRN (00:38)
[2021-04-07] MEDS ORDERED: PHARMACY GLYCEMIC MGMT CONSULT PRN (00:38)
[2021-04-07] MEDS ORDERED: ACETAMINOPHEN 325 MG TAB PO PRN (00:38)
[2021-04-07] MEDS: METOPROLOL TARTRATE 50 MG TAB PO SCH ×3 (02:40→20:53)
[2021-04-07] MEDS: OXYBUTYNIN CHLORIDE 5 MG TAB PO SCH ×3 (02:40→20:53)
[2021-04-07] MEDS: PIPERACILLIN/TAZOBACTAM 4.5 GM in DEXTROSE 5% 100 ML IV SCH ×2 (02:41→12:16)
[2021-04-07] MEDS ORDERED: MELATONIN 3 MG TAB PO PRN (08:33)
[2021-04-07 08:34] LABS: Basophils # (auto) 0.03 K/uL (0-0.2); Basophils % (auto) 0.4 %; Eosinophils # (auto) 0.23 K/uL (0-0.5); Eosinophils % (auto) 2.9 %; Hemoglobin 12.6 g/dL (14.0-18.0); Immature Granulocytes # (auto) 0.04 K/uL (0.00-0.02); Immature Granulocytes % (auto) 0.5 %; Lymphocytes # (auto) 0.83 K/uL (1.2-3.4); Lymphocytes % (auto) 10.3 %; Mean Corpuscular Hemoglobin 29.4 pg (25-34); Mean Corpuscular Hgb Conc 32.3 g/dL (32-36); Mean Corpuscular Volume 90.9 fL (80-100); Mean Platelet Volume 9.6 fL (7.4-10.4); Monocytes # (auto) 0.89 K/uL (0.11-0.59); Neutrophils # (auto) 6.05 K/uL (1.4-6.5); Neutrophils % (auto) 74.9 %; Platelet Count 225 K/uL (130-400); RDW Coefficient of Variation 14.8 % (11.5-14.5); RDW Standard Deviation 49.2 fL (36.4-46.3); Red Blood Count 4.29 M/uL (4.7-6.1); White Blood Count 8.07 K/uL (4.8-10.8)
[2021-04-07 08:46] LABS: Estimated Average Glucose 128 mg/dl; Hemoglobin A1C 6.1 % (4.5-5.6)
[2021-04-07 08:52] LABS: BUN Creatinine Ratio 17.3 (10-20); Calcium 8.7 mg/dl (8.5-10.1); Creatinine Clr Calc Pharmacy 78.2 ml/min; Est GFR (Non-African American) 46.6 ml/min; Potassium 4.5 mmol/L (3.5-5.1)
[2021-04-07] MEDS: POTASSIUM CHLORIDE 10 MEQ TABCR PO SCH (09:07)
[2021-04-07] MEDS: CHOLECALCIFEROL 400 UNITS 10 MCG TAB PO SCH (09:07)
[2021-04-07] MEDS: FUROSEMIDE 20 MG TAB PO SCH (09:07)
[2021-04-07] MEDS: FEXOFENADINE HCL 180 MG TAB PO SCH (09:07)
[2021-04-07] MEDS: CALCIUM 600MG + VIT D 400 IU TAB PO SCH (09:07)
[2021-04-07] MEDS: ATORVASTATIN 20 MG TAB PO SCH (09:07)
[2021-04-07] MEDS: dilTIAZem ER 120 MG CAPCR PO SCH (09:07)
[2021-04-07] MEDS: INSULIN ASPART PER UNIT SC SCH ×4 (10:54→21:21)
[2021-04-07] MEDS: MICONAZOLE NITRATE POWDER 43 GM EXT SCH ×2 (11:17→20:56)
[2021-04-07] MEDS: ASPIRIN 81 MG ECTAB PO SCH (12:16)
[2021-04-07 12:50] LABS: Adenovirus F 40/41 PCR Not Detected (NotDetected); Astrovirus PCR Not Detected (NotDetected); Campylobacter PCR Not Detected (NotDetected); Clostridium diff Toxin A/B PCR Not Detected (NotDetected); Cryptosporidium PCR Not Detected (NotDetected); Cyclospora cayetanensis PCR Not Detected (NotDetected); Entamoeba histolytica PCR Not Detected (NotDetected); Enteroaggregative E.coli(EAEC) Not Detected (NotDetected); Enterotoxigenic E.coli (ETEC) Not Detected (NotDetected); Giardia lamblia PCR Not Detected (NotDetected); Norovirus GI/GII PCR Not Detected (NotDetected); Plesiomonas shigelloides PCR Not Detected (NotDetected); Rotavirus A PCR Not Detected (NotDetected); Salmonella PCR Not Detected (NotDetected); Sapovirus PCR Not Detected (NotDetected); Shiga-like Toxin E.coli (STEC) Not Detected (NotDetected); Shigella/Enteroinvasive E.coli Not Detected (NotDetected); Vibrio cholerae PCR Not Detected (NotDetected); Vibrio species PCR Not Detected (NotDetected); Yersinia enterocolitica PCR Not Detected (NotDetected)
[2021-04-07 12:58] LABS: Enteropathogenic E.coli (EPEC) DETECTED (NotDetected)
--- NOTE | 2021-04-07 14:10 | Electrocardiogram Report ---
Test Reason : Blood Pressure : / mmHG Vent. 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
--- NOTE | 2021-04-07 14:18 | Medical Student Progress Note ---
Date of Service April 07, 2021 Assessment & Plan (1) Acute UTI (urinary tract infection): Plan: This 65-year-old man with a history of L pyelonephritis, kidney stones, T2DM complicated by CKD stage 3, CHF, atrial fibrillation on anticoagulation, chronic venous insufficiency, recurrent DVTs, and morbid obesity s/p gastric bypass presented for generalized weakness, diarrhea, and dark, malodorous urine. Diarrhea: - Etiology is likely infectious. - Enteropathogenic E. coli detected by PCR on stool analysis. - Management: * Treat with Cipro due to 2-week course of diarrhea and dehydration. * Encourage PO fluids. Generalized weakness: - Secondary to dehydration from infectious diarrhea. - Management: * PT/OT evaluation to assess readiness for discharge. Lower extremity swelling: - Patient has baseline bilateral edema in setting of CHF and CKD stage 3. Acute exacerbation is likely secondary to decreased physical activity (venous return) associated with diarrhea and weakness. - Management: as above. Concern for UTI: - UA on admission demonstrated +bacteria, LEs, WBCs, RBCs; culture growing Gram negative bacilli at 24 hours. However, patient is asymptomatic (eg, no dysuria, urgency). - Acute UTI unlikely. - Patient is on Cipro for EPEC diarrhea (would treat Gram negative bacilli). Type 2 diabetes mellitus: - Hgb A1c of 6.1. - Hold glimepiride during admission. - Accuchecks ACHS. - Continue ASA 81mg daily. - Patient is on moderate-intensity statin; consider increasing to 40-80mg daily as outpatient. CHF (congestive heart failure): - History of CHF. No active exacerbation. - Echo 02/24/2019 shows 55-60%, no wall motion abnormalities, mild LVH. - Volume status difficult to appreciate due to pt body habitus. Lungs clear, no SOB. - Continue Diltiazem 120 mg p.o. daily, metoprolol 50 mg p.o. twice daily. Potassium chloride 10 mEq p.o. daily. CKD (chronic kidney disease), stage III: - Stable. - BUN and Cr at baseline. - Received 1 L NS IVF in ED. Will hold off on further IVF as long as patient is able to maintain adequate PO intake. - Continue Vit D, KCl supplements. - Renally dose all medications, avoid nephrotoxic medications. Atrial fibrillation: - On warfarin 7.5 mg QD except Mondays and , per records. INR today 2.3 (at goal). - Continue metoprolol 50 mg PO BID and diltiazem 120 mg PO QD for rate control. Chronic venous insufficiency: - Chronic b/l LE edema, as above. RANDY: - CPAP at night. Diet: DM2 diet DVT ppx: Warfarin, aspirin, SCDs Dispo: Medical Code: DNR/DNI Admission and Anticipated Discharge Date Admission Date: April 06, 2021 Supervising Attestation I personally examined the patient and verified all aquino points of history and exam, discussed case, and agree with decision making with Giovanna Tolbert MS2 diarrhea ongoing. still weak. vitals noted nad heent nc at mmm breathing unlabored no accessory muscles good effort skin no rashes no pallor or icterus diarrhea/weakness - weakness from diarrhea - diarrhea from E Coli -- since duration/severity -- treat w cipro doubt UTI - suspect mostly urinary changes from dehydration, culture probably just from diarrheal contamination of pelvic floor vs less likely but possible asymptomatic bacteriuria. only truly relevant of Cx shows resistance to quinolone - but if that was to be the case - would not treat specifically unless UTI sx develop worse edema - baseline venous stasis worsened by immobility PT/OT eval and treat, ?rehab anticoagulated Subjective Patient reports continuing weakness, chills. Only one bowel movement since morning of admission, whereas he was moving his bowels 3x daily previous to admission. Continues to have hematuria; dark, malodorous urine. No chest pain, dyspnea, abd pain, dysuria. Review of Systems Review of Systems: as per subjective/HPI Physical Exam Constitutional: + morbidly obese; no acute distress Respiratory: normal respiratory effort, lungs clear to auscultation Cardiovascular: Rate/Rhythm: regular rate and regular rhythm Heart Sounds: no murmur Extremities: + edema (bilateral, non-pitting, atrophic) Gastrointestinal (Abdomen): Inspection/Auscultation: abdomen not distended Percussion/Palpation: abdomen soft; abdomen nontender Results & Data ([facility]) Vital Signs (Past 12 Hours) Vital Signs Temp Pulse Resp BP Pulse Ox 04/07/21 07:22 36.6 C 86 16 129/70 96
--- NOTE | 2021-04-07 14:27 | Pharmacy Report ---
Pharmacy Glycemic Short Note 2 - Date of Service April 07, 2021 - Glycemic Short BSG Results (Last 24 hours): 04/06/21 04/07/21 04/07/21 15:20 00:46 07:48 Glucose 128 H 95 POC Glucose 89 04/07/21 04/07/21 04/07/21 08:12 10:16 12:05 Glucose POC Glucose 91 102 H 152 H OUTPATIENT ANTIDIABETIC REGIMEN: * Amaryl 2 mg PO daily * HbA1C = 6.1% (04/07/21) ASSESSMENT: * Mr Monzon is a 65 y/o M with a PMH of T2DM who presents with UTI and diarrhea. * Patient's BSG on admission was 89 mg/dL and this morning was 91 mg/dL. * Hold basal insulin for now as patient's fasting in goal. * Weight-based stress of 1-2 Novolog for now to establish how much coverage patient requires. Expect patient will require tighter carbohydrate coverage since he is on Amaryl at home. PLAN FOR INPATIENT GLYCEMIC CONTROL: * Hold outpatient oral diabetes medications * Basal insulin * Lantus - hold * Bolus insulin * NovoLog per scale ACHS or Q6hrs while NPO * Goal Range: Low 110 mg/dL - High 140 mg/dL * Correction Factor: 30 mg/dL/unit * Nutritional / Prandial insulin per carb ratio of 1 unit per 10 grams CHO consumed PLAN FOR DISCHARGE: * Patient's HbA1C is within goal so okay to continue home regimen as long as patient does not have hypoglycemia
[2021-04-07] MEDS: WARFARIN SOD 7.5 MG TAB PO SCH (17:49)
--- NOTE | 2021-04-07 18:55 | Billing Data ---
Date of Service April 07, 2021 Coding Level of Care Code 36531 Subseq Obs Care Lvl 3
--- NOTE | 2021-04-07 20:29 | Billing Data ---
Date of Service April 07, 2021 Coding Level of Care Code INT OBSERVATION CARE 70M LVL 3
[2021-04-07] MEDS: CIPROFLOXACIN / D5W 400 MG/200 ML BAG IV SCH (21:18)
[2021-04-08 07:32] LABS: Basophils # (auto) 0.03 K/uL (0-0.2); Basophils % (auto) 0.4 %; Eosinophils # (auto) 0.24 K/uL (0-0.5); Hematocrit (blood only) 38.8 % (42-52); Hemoglobin 12.6 g/dL (14.0-18.0); Immature Granulocytes # (auto) 0.04 K/uL (0.00-0.02); Immature Granulocytes % (auto) 0.5 %; Lymphocytes # (auto) 0.83 K/uL (1.2-3.4); Lymphocytes % (auto) 10.5 %; Mean Corpuscular Hemoglobin 29.6 pg (25-34); Mean Corpuscular Hgb Conc 32.5 g/dL (32-36); Mean Corpuscular Volume 91.3 fL (80-100); Mean Platelet Volume 9.5 fL (7.4-10.4); Monocytes # (auto) 0.86 K/uL (0.11-0.59); Monocytes % (auto) 10.9 %; Neutrophils # (auto) 5.91 K/uL (1.4-6.5); Neutrophils % (auto) 74.7 %; Platelet Count 224 K/uL (130-400); RDW Coefficient of Variation 14.8 % (11.5-14.5); Red Blood Count 4.25 M/uL (4.7-6.1); White Blood Count 7.91 K/uL (4.8-10.8)
[2021-04-08 07:38] LABS: INR 1.7 (0.9-1.1); Prothrombin Time 16.6 Seconds (9.0-12.0)
[2021-04-08 07:57] LABS: BUN Creatinine Ratio 15.3 (10-20); Calcium 8.4 mg/dl (8.5-10.1); Creatinine Clr Calc Pharmacy 71.7 ml/min; Est GFR (African American) 48.7 ml/min
[2021-04-08] MEDS: INSULIN ASPART PER UNIT SC SCH ×4 (09:13→21:48)
[2021-04-08] MEDS: FUROSEMIDE 20 MG TAB PO SCH (09:15)
[2021-04-08] MEDS: FEXOFENADINE HCL 180 MG TAB PO SCH (09:15)
[2021-04-08] MEDS: CHOLECALCIFEROL 400 UNITS 10 MCG TAB PO SCH (09:15)
[2021-04-08] MEDS: CALCIUM 600MG + VIT D 400 IU TAB PO SCH (09:15)
[2021-04-08] MEDS: OXYBUTYNIN CHLORIDE 5 MG TAB PO SCH ×2 (09:15→20:58)
[2021-04-08] MEDS: POTASSIUM CHLORIDE 10 MEQ TABCR PO SCH (09:15)
[2021-04-08] MEDS: dilTIAZem ER 120 MG CAPCR PO SCH (09:15)
[2021-04-08] MEDS: ASPIRIN 81 MG ECTAB PO SCH (09:15)
[2021-04-08] MEDS: MICONAZOLE NITRATE POWDER 43 GM EXT SCH ×2 (09:15→20:57)
[2021-04-08] MEDS: METOPROLOL TARTRATE 50 MG TAB PO SCH ×2 (09:15→20:57)
[2021-04-08] MEDS: ATORVASTATIN 20 MG TAB PO SCH (09:15)
--- NOTE | 2021-04-08 09:27 | Medical Student Progress Note ---
Date of Service April 08, 2021 Assessment & Plan (1) Acute UTI (urinary tract infection): Plan: This 65-year-old man with a history of T2DM complicated by CKD stage 3, CHF, atrial fibrillation on anticoagulation, chronic venous insufficiency, recurrent DVTs, and morbid obesity s/p gastric bypass presented for generalized weakness, diarrhea, and dark, malodorous urine. Diarrhea with associated fecal incontinence: - Etiology is likely infectious. - Enteropathogenic E. coli detected by PCR on stool analysis. - 2 bowel movements since admission (compared to 3/day before), both with incontinence. Incontinence will take time to improve considering duration of symptoms. - EPEC generally not treated with antibiotics, but is indicated in setting of persistent diarrhea, dehydration, and need for hospitalization. - Management: * D/c Cipro 400 mg IV BID, start Cipro 500 mg PO BID for total (IV + PO) of 3-5 days. * Encourage PO fluids. Generalized weakness: - Secondary to dehydration from infectious diarrhea. - OT eval: recommend discharge to inpatient rehab for 2 weeks. - Case management has reached out to several inpatient rehab facilities for bed availability. - Management: * PT evaluation to assess readiness for discharge. * Discharge to inpatient rehab when bed becomes available. Atrial fibrillation: - EKG showed active atrial fibrillation, irregularly irregular on exam today. - INR today 1.7 (not at goal of 2-3). Not concerning, likely due to disruption of gut jane (vitamin K absorption). Repeat INR. - Anticoagulation: warfarin 7.5 mg QD except Mondays and , per records. - Rate control: metoprolol 50 mg PO BID and diltiazem 120 mg PO QD. Lower extremity swelling: - Baseline bilateral edema in setting of CHF and CKD stage 3. - Acute exacerbation likely secondary to decreased physical activity (venous return) associated with diarrhea, incontinence, and weakness. - Management: as above. Concern for UTI: - UA on admission demonstrated +bacteria, LEs, WBCs, RBCs; culture growing Gram negative bacilli at 24 hours. - Asymptomatic (eg, no dysuria, urgency). - Acute UTI unlikely due to lack of symptoms. - Patient is on Cipro for EPEC diarrhea (would treat Gram negative bacilli). Type 2 diabetes mellitus: - Hgb A1c of 6.1. - POC glucose in 90s and 100s. - Holding glimepiride during admission. - Accuchecks ACHS with sliding scale. - Continue aspirin 81mg daily. - Patient is on moderate-intensity statin; consider increasing to 40-80mg daily as outpatient. CHF (congestive heart failure): - History of CHF. No active exacerbation. - Echo 02/24/2019 shows 55-60%, no wall motion abnormalities, mild LVH. - Volume status difficult to appreciate due to pt body habitus. Lungs clear, no SOB or JVD. - Continue diltiazem 120 mg PO daily, metoprolol 50 mg PO twice daily. Potassium chloride 10 mEq PO daily. CKD (chronic kidney disease), stage III: - Stable. - BUN and Cr at baseline. - Received 1 L NS IVF in ED. Will hold off on further IVF as long as patient is able to maintain adequate PO intake. - Continue Vit D, KCl supplements. - Renally dose all medications, avoid nephrotoxic medications. Chronic venous insufficiency: - Chronic b/l LE edema, as above. RANDY: - CPAP at night. Diet: DM2 diet, heart healthy DVT ppx: Warfarin, aspirin, SCDs Code: DNR/DNI Dispo: Med/surg Admission and Anticipated Discharge Date Admission Date: April 06, 2021 Supervising Attestation I personally examined the patient and verified all aquino points of history and exam, discussed case, and agree with decision making with Giovanna Tolbert MS2 neck was stiff this AM better now. ongoing diarrhea belly doesn't hurt vitals noted nad heent nc at mmm breathing unlabored no accessory muscles good effort skin no rashes no pallor or icterus. neck supple. abd soft nd nt diarrhea/weakness - weakness from diarrhea - diarrhea from E Coli -- since duration/severity -- treating w cipro - anticipate response doubt UTI - suspect mostly urinary changes from dehydration, culture probably just from diarrheal contamination of pelvic floor vs less likely but possible asymptomatic bacteriuria. only truly relevant of Cx shows resistance to quinolone - but if that was to be the case - would not treat specifically unless UTI sx develop worse edema - baseline venous stasis worsened by immobility, PT eval and treat PT/OT eval and treat, ?rehab or SNF/rehab emphasis anticoagulated Subjective Patient reports continuing weakness with no improvement. Has had two bowel movements since being admitted, whereas he was moving his bowels 3x daily previous to admission. No abd pain. Less blood in urine, and urine is lightening in color. No dysuria, flank pain. Patient does not notice he is in atrial fibrillation. No chest pain, dyspnea, palpitations, lightheadedness, dizziness. No headaches. Related to discharge, patient prefers to return home but is open to inpatient rehab due to weakness. Review of Systems Review of Systems: as per subjective/HPI Physical Exam Constitutional: + morbidly obese; no acute distress Respiratory: normal respiratory effort, lungs clear to auscultation Cardiovascular: Rate/Rhythm: + irregularly irregular Heart Sounds: no murmur Extremities: + edema (bilateral, non-pitting) very faint heart sounds Gastrointestinal (Abdomen): Inspection/Auscultation: normal bowel sounds, + significant pannus, + visible herniation (2x, RUQ and LUQ) and + abdominal surgical scar (large, site of gastric bypass incision); abdomen not distended Percussion/Palpation: + abdomen tender (sites of herniation mildly tender) and abdomen soft Musculoskeletal: Extremities: + abnormal strength (unable to get up from bed) Skin: + stasis dermatitis of lower extremities Neurologic: moves all extremities and awake Motor/Sensory: + sensory deficit (no light touch sensation distal to mid-calf/conti) Results & Data ([facility]) Vital Signs (Past 12 Hours) Vital Signs Temp Pulse Pulse Resp BP Pulse Ox Pulse Ox 04/08/21 08:55 36.6 C 102 H 16 114/68 94 04/08/21 03:00 75 18 97 04/08/21 00:38 98 04/07/21 23:43 36.4 C L 76 20 121/65 98 04/07/21 23:14 70 16 95
[2021-04-08] MEDS: CIPROFLOXACIN / D5W 400 MG/200 ML BAG IV SCH (09:36)
--- NOTE | 2021-04-08 13:48 | Pharmacy Report ---
Pharmacy Glycemic Sign Off Nt - Date of Service April 08, 2021 - Assessment & Plan ASSESSMENT: * Pharmacy was consulted by Yana Kearney PA-C on 04/07/21 for glycemic control and to write orders per [facility] inpatient glycemic control protocol. * Major changes made by pharmacy to antidiabetic regimen include: * initiation of Novolog CF/CR * Patient has been receiving/requiring 8 units of insulin per day for adequate glycemic control * BSGs ranging 91- 152 mg/dl * Regimen has only required minor adjustments over the past 48hrs to achieve this level of control * Do not anticipate further changes in patient status that would quickly deteriorate glycemic control (i.e. patient to be NPO for upcoming procedure, steroids tapering, starting tube feedings, etc). * Please see recommendations for outpatient antidiabetic regimen below. PLAN FOR INPATIENT GLYCEMIC CONTROL: No changes needed to current regimen. * Continue NovoLog per scale ACHS/Q6hrs while NPO * Goal range = 110- 140 mg/dl * CF = 30 mg/dl/unit * CR = 1 unit for ever 10 g CHO consumed * Pharmacy is signing off of glycemic consult and will no longer be making adjustments to inpatient regimen. Please feel free to re-consult if needed. Th ank you. DISCHARGE RECOMMENDATIONS: * A1c 6.1 % on 04/07/21. * Reasonable to continue home regimen as long as patient is not suffering from hypoglycemia.
[2021-04-08] MEDS: WARFARIN SOD 7.5 MG TAB PO SCH (17:08)
--- NOTE | 2021-04-08 18:11 | Billing Data ---
Date of Service April 08, 2021 Coding Level of Care Code 50669 Subseq Hosp Care Lvl 3
[2021-04-08] MEDS: CIPROFLOXACIN 500 MG TAB PO SCH (20:58)
[2021-04-08] MEDS: DICLOFENAC SOD 1% GEL 100 GM TUBE EXT SCH (20:59)
[2021-04-09 06:20] LABS: Basophils # (auto) 0.04 K/uL (0-0.2); Basophils % (auto) 0.5 %; Eosinophils # (auto) 0.26 K/uL (0-0.5); Eosinophils % (auto) 3.6 %; Hematocrit (blood only) 37.5 % (42-52); Hemoglobin 12.1 g/dL (14.0-18.0); Immature Granulocytes # (auto) 0.07 K/uL (0.00-0.02); Lymphocytes # (auto) 1.05 K/uL (1.2-3.4); Lymphocytes % (auto) 14.4 %; Mean Corpuscular Hemoglobin 29.3 pg (25-34); Mean Corpuscular Hgb Conc 32.3 g/dL (32-36); Mean Corpuscular Volume 90.8 fL (80-100); Mean Platelet Volume 9.3 fL (7.4-10.4); Monocytes # (auto) 0.71 K/uL (0.11-0.59); Monocytes % (auto) 9.7 %; Neutrophils # (auto) 5.16 K/uL (1.4-6.5); Neutrophils % (auto) 70.8 %; Platelet Count 215 K/uL (130-400); RDW Coefficient of Variation 14.7 % (11.5-14.5); RDW Standard Deviation 48.5 fL (36.4-46.3); Red Blood Count 4.13 M/uL (4.7-6.1); White Blood Count 7.29 K/uL (4.8-10.8)
[2021-04-09 06:47] LABS: BUN Creatinine Ratio 15.8 (10-20); Calcium 8.4 mg/dl (8.5-10.1); Creatinine Clr Calc Pharmacy 80.2 ml/min; Est GFR (African American) 55.7 ml/min; Est GFR (Non-African American) 48.1 ml/min; Potassium 4.2 mmol/L (3.5-5.1)
[2021-04-09 07:14] LABS: INR 1.9 (0.9-1.1); Prothrombin Time 17.9 Seconds (9.0-12.0)
[2021-04-09] MEDS: CALCIUM 600MG + VIT D 400 IU TAB PO SCH (08:34)
[2021-04-09] MEDS: CHOLECALCIFEROL 400 UNITS 10 MCG TAB PO SCH (08:34)
[2021-04-09] MEDS: FUROSEMIDE 20 MG TAB PO SCH (08:34)
[2021-04-09] MEDS: CIPROFLOXACIN 500 MG TAB PO SCH ×2 (08:34→21:10)
[2021-04-09] MEDS: OXYBUTYNIN CHLORIDE 5 MG TAB PO SCH ×2 (08:34→21:10)
[2021-04-09] MEDS: dilTIAZem ER 120 MG CAPCR PO SCH (08:34)
[2021-04-09] MEDS: FEXOFENADINE HCL 180 MG TAB PO SCH (08:34)
[2021-04-09] MEDS: METOPROLOL TARTRATE 50 MG TAB PO SCH ×2 (08:34→21:10)
[2021-04-09] MEDS: ATORVASTATIN 20 MG TAB PO SCH (08:34)
[2021-04-09] MEDS: POTASSIUM CHLORIDE 10 MEQ TABCR PO SCH (08:35)
[2021-04-09] MEDS: ASPIRIN 81 MG ECTAB PO SCH (08:35)
[2021-04-09] MEDS: MICONAZOLE NITRATE POWDER 43 GM EXT SCH ×2 (08:35→21:11)
[2021-04-09] MEDS: DICLOFENAC SOD 1% GEL 100 GM TUBE EXT SCH ×2 (08:35→21:12)
[2021-04-09] MEDS: INSULIN ASPART PER UNIT SC SCH ×4 (09:05→21:23)
--- NOTE | 2021-04-09 10:58 | Hospitalist Progress Note ---
Date of Service April 09, 2021 Assessment & Plan (1) Diarrhea: Plan: This 65-year-old man with a history of T2DM complicated by CKD stage 3, CHF, atrial fibrillation on anticoagulation, chronic venous insufficiency, recurrent DVTs, and morbid obesity s/p gastric bypass presented for generalized weakness, diarrhea, and dark, malodorous urine. Diarrhea with associated fecal incontinence: - Etiology is infectious. - Enteropathogenic E. coli detected by PCR on stool analysis. - EPEC generally not treated with antibiotics, but is indicated in setting of persistent diarrhea, dehydration, and need for hospitalization. - Management: * Cipro 500 mg PO BID for total of 5 days (currently on day 3) * Encourage PO fluids. Generalized weakness: - Secondary to dehydration from infectious diarrhea + chronic deconditioning - PT and OT eval: recommend discharge to inpatient rehab . - Case management has reached out to several inpatient rehab facilities for bed availability. - Management: * PT evaluation to assess readiness for discharge. * Discharge to inpatient rehab when bed becomes available. Atrial fibrillation: - EKG showed active atrial fibrillation, irregularly irregular on exam today. - INR today 1.9, up from 1.7, subtherapeutic (goal of 2-3). Trend INR - Continue current dose of warfarin 7.5 mg QD except Mondays and . In the setting of impaired Vit K absorption, anticipate patient will return to therapeutic range on home dose - Rate control: metoprolol 50 mg PO BID and diltiazem 120 mg PO QD. Lower extremity swelling: - Baseline bilateral edema in setting of CHF and CKD stage 3 and venous insufficiency Concern for UTI: - UA on admission demonstrated +bacteria, LEs, WBCs, RBCs; culture growing Gram negative bacilli at 24 hours. - Asymptomatic (eg, no dysuria, urgency). - Acute UTI unlikely due to lack of symptoms. - Patient is on Cipro for EPEC diarrhea (would treat Gram negative bacilli). Type 2 diabetes mellitus: - Hgb A1c of 6.1. - POC glucose in 90s and 100s. - Holding glimepiride during admission. - Accuchecks ACHS with sliding scale. - Continue aspirin 81mg daily. - Patient is on moderate-intensity statin; consider increasing to 40-80mg daily as outpatient. CHF (congestive heart failure): - History of CHF. No active exacerbation. - Echo 02/24/2019 shows 55-60%, no wall motion abnormalities, mild LVH. - Volume status difficult to appreciate due to pt body habitus. Lungs clear, no SOB or JVD. - Continue diltiazem 120 mg PO daily, metoprolol 50 mg PO twice daily. Potassium chloride 10 mEq PO daily. CKD (chronic kidney disease), stage III: - Stable. - BUN and Cr at baseline. - Received 1 L NS IVF in ED. Will hold off on further IVF as long as patient is able to maintain adequate PO intake. - Continue Vit D, KCl supplements. - Renally dose all medications, avoid nephrotoxic medications. RANDY: - CPAP at night. Diet: DM2 diet, heart healthy DVT ppx: Warfarin, aspirin, SCDs Code: DNR/DNI Dispo: Med/surg Admission and Anticipated Discharge Date Admission Date: April 06, 2021 Supervising Physician Co-Signing Physician Notes I personally examined the patient and verified all aquino points of history and exam, discussed case, and agree with decision making with Sadiq Olivares MD no diarrhea since yesterday! no dysuria. urine more clear as well. vitals noted nad heent nc at mmm breathing unlabored no accessory muscles good effort skin no rashes no pallor or icterus. diarrhea/weakness - weakness from diarrhea - diarrhea from E Coli -- since duration/severity -- treating w cipro - improving doubt UTI - suspect mostly urinary changes from dehydration, culture probably just from diarrheal contamination of pelvic floor vs less likely but possible asymptomatic bacteriuria. no need to change abx based on urine culture since culture not indicative of active UTI worse edema - baseline venous stasis worsened by immobility, PT eval and treat PT/OT eval and treat, ?rehab or SNF/rehab emphasis -- but encouraged to work as hard as he can -- as diarrhea improves ?maybe he will also show some improvement in strength and home will be a viable option? anticoagulated Subjective No acute events overnight. Feeling well - diarrhea has finally slowed. Agreeable to go to inpatient rehab when bed becomes available. Review of Systems Review of Systems: All systems reviewed & are unremarkable except as noted in HPI & below Physical Exam Constitutional: WD/WN, vitals as above + morbidly obese and comfortable; no acute distress Eyes: + anicteric sclerae ENMT: external ear and nose normal, oropharynx normal Neck: trachea midline Respiratory: normal respiratory effort; no respiratory distress Cardiovascular: Rate/Rhythm: + irregularly irregular Gastrointestinal (Abdomen): normal bowel sounds, soft, nontender, no hepatosplenomegaly Inspection/Auscultation: + significant pannus Musculoskeletal: Head/Neck/Chest: normocephalic and head atraumatic Skin: no rashes, warm and dry Neurologic: moves all extremities Psychiatric: A+Ox3, euthymic affect Results & Data Results & Data ([facility]) Vital Signs (Past 12 Hours) Vital Signs Temp Pulse Pulse Resp BP Pulse Ox 04/09/21 07:56 36.7 C 82 20 118/78 92 04/09/21 03:11 82 16 93 Resident Activity Tracking Resident Involvement: Resident Care Provided Care Provided: Adult Hospital Medicine (1) Diarrhea Diarrhea type: unspecified type Qualified Code(s): R19.7 - Diarrhea, u nspecified
--- NOTE | 2021-04-09 15:57 | Billing Data ---
Date of Service April 09, 2021 Coding Level of Care Code 40930 Subseq Hosp Care Lvl 3
[2021-04-09] MEDS: WARFARIN SOD 7.5 MG TAB PO SCH (18:05)
--- NOTE | 2021-04-10 07:00 | Hospitalist Progress Note ---
Date of Service April 10, 2021 Assessment & Plan (1) Diarrhea: Plan: This 65-year-old man with a history of T2DM complicated by CKD stage 3, CHF, atrial fibrillation on anticoagulation, chronic venous insufficiency, recurrent DVTs, and morbid obesity s/p gastric bypass presented for generalized weakness and diarrhea. Diarrhea with associated fecal incontinence: - Etiology is infectious. - Enteropathogenic E. coli detected by PCR on stool analysis. - EPEC generally not treated with antibiotics, but is indicated in setting of persistent diarrhea, dehydration, and need for hospitalization. - Management: * Cipro 500 mg PO BID for total of 5 days (currently on day 4) * Encourage PO fluids. Generalized weakness: - Secondary to dehydration from infectious diarrhea + chronic deconditioning - PT and OT eval: recommend discharge to inpatient rehab . - Case management has reached out to several inpatient rehab facilities for bed availability. - Management: * PT evaluation to assess readiness for discharge. * Discharge to inpatient rehab when bed becomes available. Atrial fibrillation: - EKG showed active atrial fibrillation, irregularly irregular on exam today. - INR today at 1.7, subtherapeutic (goal of 2-3). - home warfarin 7.5 mg QD except Sun, Mon, Wed, Thur, Fri, Sat. 3.25mg on Sun. In the setting of impaired Vit K absorption, we anticipated patient would return to therapeutic range on home regimen - however given that he continues to be subtherapeutic, I will add a one time "kicker" dose of 5mg today. I will also increase his Sunday dose from 3.25 to 5.0mg. - Trend INR - Rate control: metoprolol 50 mg PO BID and diltiazem 120 mg PO QD. Lower extremity swelling: - Baseline bilateral edema in setting of CHF and CKD stage 3 and venous insufficiency Concern for UTI: - UA on admission demonstrated +bacteria, LEs, WBCs, RBCs; culture growing Gram negative bacilli at 24 hours. - Asymptomatic (eg, no dysuria, urgency). - Acute UTI unlikely due to lack of symptoms. - Patient is on Cipro for EPEC diarrhea (would treat Gram negative bacilli). Type 2 diabetes mellitus: - Hgb A1c of 6.1. - POC glucose in 90s and 100s. - Holding glimepiride during admission. - Accuchecks ACHS with sliding scale. - Continue aspirin 81mg daily. - Patient is on moderate-intensity statin; consider increasing to 40-80mg daily as outpatient. CHF (congestive heart failure): - History of CHF. No active exacerbation. - Echo 02/24/2019 shows 55-60%, no wall motion abnormalities, mild LVH. - Volume status difficult to appreciate due to pt body habitus. Lungs clear, no SOB or JVD. - Continue diltiazem 120 mg PO daily, metoprolol 50 mg PO twice daily. Potassium chloride 10 mEq PO daily. CKD (chronic kidney disease), stage III: - Stable. - BUN and Cr at baseline. - Received 1 L NS IVF in ED. Will hold off on further IVF as long as patient is able to maintain adequate PO intake. - Continue Vit D, KCl supplements. - Renally dose all medications, avoid nephrotoxic medications. RANDY: - CPAP at night. Diet: DM2 diet, heart healthy DVT ppx: Warfarin, aspirin, SCDs Code: DNR/DNI Dispo: Med/surg, awaiting inpatient rehab placement Admission and Anticipated Discharge Date Admission Date: April 06, 2021 Supervising Physician Co-Signing Physician Notes I personally examined the patient and verified all aquino points of history and exam, discussed case, and agree with decision making with Sadiq Olivares MD "you've gotta get me to rehab or get me home. i'm just getting weaker here in this hospital bed." explained placement process requiring insurance approval and then accepting facility and bed availability makes it a process that can be frustratingly long, and essentially entirely out of my control vitals noted nad heent nc at mmm breathing unlabored no accessory muscles good effort skin no rashes no pallor or icterus. diarrhea/weakness - weakness from diarrhea - diarrhea from E Coli -- since long duration/significant severity -- treating w cipro - improving doubt UTI - suspect mostly urinary changes from dehydration, culture probably just from diarrheal contamination of pelvic floor vs less likely but possible asymptomatic bacteriuria. no need to change abx based on urine culture since culture not indicative of active UTI worse edema - baseline venous stasis worsened by immobility, PT eval and treat PT/OT eval and treat, ?rehab or SNF/rehab emphasis -- continued to encourage to work as hard as he can and do as much as he can even when not working with therapy -- as diarrhea improves ?maybe he will also show some improvement in strength and home will be a viable option? (as of now appears still requiring significant assistance) anticoagulated - sl low - adjust coumadin and follow Subjective No acute events overnight. Feeling well. No complaints. Agreeable to go to inpatient rehab when bed becomes available. Review of Systems Review of Systems: All systems reviewed & are unremarkable except as noted in HPI & below Physical Exam Constitutional: WD/WN, vitals as above + morbidly obese and comfortable; no acute distress Eyes: + anicteric sclerae ENMT: external ear and nose normal, oropharynx normal Neck: trachea midline Respiratory: normal respiratory effort; no respiratory distress Cardiovascular: Rate/Rhythm: + irregularly irregular Gastrointestinal (Abdomen): normal bowel sounds, soft, nontender, no hepatosplenomegaly Inspection/Auscultation: + significant pannus Musculoskeletal: Head/Neck/Chest: normocephalic and head atraumatic Skin: no rashes, warm and dry Neurologic: moves all extremities Psychiatric: A+Ox3, euthymic affect Results & Data Results & Data ([facility]) Vital Signs (Past 12 Hours) Vital Signs Temp Pulse Pulse Resp BP Pulse Ox 04/10/21 03:01 90 21 94 04/09/21 22:45 80 22 96 04/09/21 22:31 36.5 C 92 H 18 123/71 94 04/09/21 21:03 100 H 151/99 H Resident Activity Tracking Resident Involvement: Resident Care Provided Care Provided: Adult Hospital Medicine (1) Diarrhea Diarrhea type: unspecified type Qualified Code(s): R19.7 - Diarrhea, unspecified
[2021-04-10 07:20] LABS: INR 1.7 (0.9-1.1); Prothrombin Time 16.7 Seconds (9.0-12.0)
[2021-04-10] MEDS: ATORVASTATIN 20 MG TAB PO SCH (09:03)
[2021-04-10] MEDS: FEXOFENADINE HCL 180 MG TAB PO SCH (09:03)
[2021-04-10] MEDS: MICONAZOLE NITRATE POWDER 43 GM EXT SCH ×2 (09:03→21:25)
[2021-04-10] MEDS: ASPIRIN 81 MG ECTAB PO SCH (09:03)
[2021-04-10] MEDS: dilTIAZem ER 120 MG CAPCR PO SCH (09:03)
[2021-04-10] MEDS: CALCIUM 600MG + VIT D 400 IU TAB PO SCH (09:03)
[2021-04-10] MEDS: CHOLECALCIFEROL 400 UNITS 10 MCG TAB PO SCH (09:03)
[2021-04-10] MEDS: CIPROFLOXACIN 500 MG TAB PO SCH ×2 (09:03→20:32)
[2021-04-10] MEDS: POTASSIUM CHLORIDE 10 MEQ TABCR PO SCH (09:03)
[2021-04-10] MEDS: DICLOFENAC SOD 1% GEL 100 GM TUBE EXT SCH ×2 (09:03→21:25)
[2021-04-10] MEDS: OXYBUTYNIN CHLORIDE 5 MG TAB PO SCH ×2 (09:03→20:32)
[2021-04-10] MEDS: FUROSEMIDE 20 MG TAB PO SCH (09:03)
[2021-04-10] MEDS: INSULIN ASPART PER UNIT SC SCH ×4 (09:05→20:41)
[2021-04-10] MEDS ORDERED: WARFARIN SOD 5 MG TAB PO ONE (10:00)
[2021-04-10] MEDS: METOPROLOL TARTRATE 50 MG TAB PO SCH ×2 (10:37→20:32)
--- NOTE | 2021-04-10 13:44 | Billing Data ---
Date of Service April 10, 2021 Coding Level of Care Code 69425 Subseq Hosp Care Lvl 2
[2021-04-10] MEDS: WARFARIN SOD 7.5 MG TAB PO SCH (15:56)
--- NOTE | 2021-04-11 07:57 | Hospitalist Progress Note ---
Date of Service April 11, 2021 Assessment & Plan (1) Diarrhea: Plan: This 65-year-old man with a history of T2DM complicated by CKD stage 3, CHF, atrial fibrillation on anticoagulation, chronic venous insufficiency, recurrent DVTs, and morbid obesity s/p gastric bypass presented for generalized weakness and diarrhea. Diarrhea with associated fecal incontinence: - Etiology is infectious. - Enteropathogenic E. coli detected by PCR on stool analysis. - EPEC generally not treated with antibiotics, but is indicated in setting of persistent diarrhea, dehydration, and need for hospitalization. - Management: * Cipro 500 mg PO BID for total of 5 days (currently on day 5) * Encourage PO fluids. Generalized weakness: - Secondary to dehydration from infectious diarrhea + chronic deconditioning - PT and OT eval: recommend discharge to inpatient rehab . - Case management has reached out to several inpatient rehab facilities for bed availability. - Management: * PT evaluation to assess readiness for discharge. * Discharge to inpatient rehab when bed becomes available -- CM assisting Atrial fibrillation: - EKG showed active atrial fibrillation, irregularly irregular on exam - INR today at 2.4 (goal of 2-3). - home warfarin 7.5 mg QD except Sun, Mon, Wed, Thur, Fri, Sat. 3.25mg on Sun. In the setting of impaired Vit K absorption, we anticipated patient would return to therapeutic range on home regimen - however given that he continued to be subtherapeutic, received 5mg x1 on 04/10. Increased his Sunday dose from 3.25 to 5.0mg. - Trend INR - Rate control: metoprolol 50 mg PO BID and diltiazem 120 mg PO QD. Lower extremity swelling: - Baseline bilateral edema in setting of CHF and CKD stage 3 and venous insufficiency Asymptomatic bacteriuria: - UA on admission demonstrated +bacteria, LEs, WBCs, RBCs; culture growing Gram negative bacilli at 24 hours. - Asymptomatic (eg, no dysuria, urgency). - Acute UTI unlikely due to lack of symptoms. - Patient is on Cipro for EPEC diarrhea -- however UCx showed E. coli resistant to cipro - Without symptoms will not require treatment Type 2 diabetes mellitus: - Hgb A1c of 6.1. - POC glucose in 90s and 100s. - Holding glimepiride during admission. - Accuchecks ACHS with sliding scale. - Continue aspirin 81mg daily. - Patient is on moderate-intensity statin; consider increasing to 40-80mg daily as outpatient. CHF (congestive heart failure): - History of CHF. No active exacerbation. - Echo 02/24/2019 shows 55-60%, no wall motion abnormalities, mild LVH. - Volume status difficult to appreciate due to pt body habitus. Lungs clear, no SOB or JVD. - Continue diltiazem 120 mg PO daily, metoprolol 50 mg PO twice daily. Potassium chloride 10 mEq PO daily. CKD (chronic kidney disease), stage III: - Stable. - BUN and Cr at baseline. - Received 1 L NS IVF in ED. Will hold off on further IVF as long as patient is able to maintain adequate PO intake. - Continue Vit D, KCl supplements. - Renally dose all medications, avoid nephrotoxic medications. RANDY: - CPAP at night. Diet: DM2 diet, heart healthy DVT ppx: Warfarin, aspirin, SCDs Code: DNR/DNI Dispo: Med/surg, awaiting inpatient rehab placement Admission and Anticipated Discharge Date Admission Date: April 08, 2021 Supervising Physician Co-Signing Physician Notes I also saw the patient with the resident physician and confirmed aquino portions of the history and physical examination. Agree with the impression and plan as noted in the resident documentation. Upon exam, the patient is seated in the bedside chair. He reports continued loose stool but to a much lesser quantity and occurrence. He has very minimal lower abdominal cramping with defecation. Exam 108/73, 88, 16, 36.6, 96% on room air Heart irregularly irregular Respirations nonlabored Abdomen is morbidly obese but soft and nontender Data PT 22.4, INR 2.4 Impression and plan diarrhea/weakness weakness from diarrhea - diarrhea from E Coli -- since long duration/significant severity -- treating w cipro - improving PT/OT evaluation and treatment, ?rehab or SNF/rehab emphasis Atrial fibrillation on chronic anticoagulation, warfarin PT within range today Additional per resident documentation Subjective No acute events overnight. Awaiting placement and currently no concerns. Review of Systems Review of Systems: Denies CP, palp, cough, SOB, abd pain, n/v, bloody stool, neurpo deficits, NUR, dizziness Physical Exam Constitutional: WD/WN, vitals as above + morbidly obese and comfortable; no acute distress Eyes: + anicteric sclerae ENMT: external ear and nose normal, oropharynx normal Neck: trachea midline Respiratory: normal respiratory effort; no respiratory distress Cardiovascular: Rate/Rhythm: + irregularly irregular Gastrointestinal (Abdomen): normal bowel sounds, soft, nontender, no hepatosplenomegaly Inspection/Auscultation: + significant pannus Musculoskeletal: Head/Neck/Chest: normocephalic and head atraumatic Skin: no rashes, warm and dry Neurologic: moves all extremities Psychiatric: A+Ox3, euthymic affect Results & Data Results & Data ([facility]) Vital Signs (Past 12 Hours) Vital Signs Temp Pulse Pulse Pulse Resp BP BP 04/11/21 07:40 36.5 C 88 20 123/66 04/11/21 02:42 81 20 04/10/21 22:34 36.6 C 84 20 113/62 04/10/21 22:10 84 22 04/10/21 20:30 85 147/85 H Pulse Ox 04/11/21 07:40 96 04/11/21 02:42 95 04/10/21 22:34 96 04/10/21 22:10 96 04/10/21 20:30 Resident Activity Tracking Resident Involvement: Resident Care Provided Care Provided: Adult Hospital Medicine (1) Diarrhea Diarrhea type: unspecified type Qualified Code(s): R19.7 - Diarrhea, unsp ecified
[2021-04-11] MEDS: POTASSIUM CHLORIDE 10 MEQ TABCR PO SCH (08:27)
[2021-04-11] MEDS: CALCIUM 600MG + VIT D 400 IU TAB PO SCH (08:27)
[2021-04-11] MEDS: ATORVASTATIN 20 MG TAB PO SCH (08:27)
[2021-04-11] MEDS: ASPIRIN 81 MG ECTAB PO SCH (08:28)
[2021-04-11] MEDS: dilTIAZem ER 120 MG CAPCR PO SCH (08:29)
[2021-04-11] MEDS: METOPROLOL TARTRATE 50 MG TAB PO SCH ×2 (08:29→21:19)
[2021-04-11] MEDS: FEXOFENADINE HCL 180 MG TAB PO SCH (08:29)
[2021-04-11] MEDS: FUROSEMIDE 20 MG TAB PO SCH (08:29)
[2021-04-11] MEDS: OXYBUTYNIN CHLORIDE 5 MG TAB PO SCH ×2 (08:29→21:20)
[2021-04-11] MEDS: DICLOFENAC SOD 1% GEL 100 GM TUBE EXT SCH ×2 (08:30→21:20)
[2021-04-11] MEDS: CIPROFLOXACIN 500 MG TAB PO SCH ×2 (08:30→21:21)
[2021-04-11] MEDS: CHOLECALCIFEROL 400 UNITS 10 MCG TAB PO SCH (08:30)
[2021-04-11] MEDS: MICONAZOLE NITRATE POWDER 43 GM EXT SCH ×2 (08:31→21:22)
[2021-04-11] MEDS: INSULIN ASPART PER UNIT SC SCH ×4 (09:19→21:24)
[2021-04-11 09:25] LABS: INR 2.4 (0.9-1.1); Prothrombin Time 22.4 Seconds (9.0-12.0)
[2021-04-11] MEDS: WARFARIN SOD 7.5 MG TAB PO SCH (16:13)
--- NOTE | 2021-04-12 07:03 | Hospitalist Progress Note ---
Date of Service April 12, 2021 Assessment & Plan (1) Diarrhea: Plan: This 65-year-old man with a history of T2DM complicated by CKD stage 3, CHF, atrial fibrillation on anticoagulation, chronic venous insufficiency, recurrent DVTs, and morbid obesity s/p gastric bypass presented for generalized weakness and diarrhea. Diarrhea with associated fecal incontinence: - Etiology is infectious. - Enteropathogenic E. coli detected by PCR on stool analysis. - EPEC generally not treated with antibiotics, but is indicated in setting of persistent diarrhea, dehydration, and need for hospitalization. - Management: * Cipro 500 mg PO BID for total of 5 days -- completed on 04/11/21 * Encourage PO fluids Generalized weakness: - Secondary to dehydration from infectious diarrhea + chronic deconditioning - PT and OT eval: recommend discharge to inpatient rehab . - Case management has reached out to several inpatient rehab facilities for bed availability. - Management: * PT evaluation to assess readiness for discharge. * Discharge to inpatient rehab when bed becomes available -- CM assisting * As above, patient agreeable to rehab/SNF but requestin home discharge with home health if no placement by Saturday 04/15 Atrial fibrillation: - EKG showed active atrial fibrillation, irregularly irregular on exam - INR today at 2.7 (goal of 2-3). - home warfarin 7.5 mg QD except 3.25mg on Sun. In the setting of impaired Vit K absorption, we anticipated patient would return to therapeutic range on home regimen - however given that he continued to be subtherapeutic, received 5mg x1 on 04/10. Increased his Sunday dose from 3.25 to 5.0mg. - Trend INR - Rate control: metoprolol 50 mg PO BID and diltiazem 120 mg PO QD. Lower extremity swelling: - Baseline bilateral edema in setting of CHF and CKD stage 3 and venous insufficiency Asymptomatic bacteriuria: - UA on admission demonstrated +bacteria, LEs, WBCs, RBCs; culture growing Gram negative bacilli at 24 hours. - Asymptomatic (eg, no dysuria, urgency). - Acute UTI unlikely due to lack of symptoms. - Patient completed Cipro for EPEC diarrhea -- however UCx showed E. coli resistant to cipro - Without symptoms will not require treatment Type 2 diabetes mellitus: - Hgb A1c of 6.1. - POC glucose in 90s and 100s. - Holding glimepiride during admission. - Accuchecks ACHS with sliding scale. - Continue aspirin 81mg daily. - Patient is on moderate-intensity statin; consider increasing to 40-80mg daily as outpatient. CHF (congestive heart failure): - History of CHF. No active exacerbation. - Echo 02/24/2019 shows 55-60%, no wall motion abnormalities, mild LVH. - Volume status difficult to appreciate due to pt body habitus. Lungs clear, no SOB or JVD. - Continue diltiazem 120 mg PO daily, metoprolol 50 mg PO twice daily. Potassium chloride 10 mEq PO daily. CKD (chronic kidney disease), stage III: - Stable. - BUN and Cr at baseline. - Received 1 L NS IVF in ED. Will hold off on further IVF as long as patient is able to maintain adequate PO intake. - Continue Vit D, KCl supplements. - Renally dose all medications, avoid nephrotoxic medications. RANDY: - CPAP at night. Diet: DM2 diet, heart healthy DVT ppx: Warfarin, aspirin, SCDs Code: DNR/DNI Dispo: Med/surg, awaiting inpatient rehab/SNF placement Admission and Anticipated Discharge Date Admission Date: April 08, 2021 Supervising Physician Co-Signing Physician Notes I also saw the patient with the resident physician and confirmed aquino portions of the history and physical examination. Agree with the impression and plan as noted in the resident documentation. Upon exam, the patient is seated in the bedside chair. Overall, continues to improve - less abdominal symptoms and increased strength. Exam 139/68, 80, 16 Heart irregularly irregular Respirations nonlabored Abdomen is morbidly obese but soft and nontender Data HgB 13.1 INR 2.7 Na 135 BUN 25, Cr 1.65 Impression and plan diarrhea/weakness weakness from diarrhea - diarrhea from E Coli -- since long duration/significant severity -- treating w cipro - improving He continues to improve from a strength point of view, and may be able to return home with services prior to a placement opening Will review PT notes Atrial fibrillation on chronic anticoagulation, warfarin PT within range today Additional per resident documentation Subjective No acute events overnight. Patient agreeable to rehab/SNF but if not placed by Sunday would prefer home with home health. Loose stools continue but he does say they are decreasing in number. Otherwise no concerns. Review of Systems Review of Systems: Denies CP, palp, cough, SOB, abd pain, n/v, bloody stool, neurpo deficits, NUR, dizziness Physical Exam Constitutional: WD/WN, vitals as above + morbidly obese and comfortable; no acute distress Eyes: + anicteric sclerae ENMT: external ear and nose normal, oropharynx normal Neck: trachea midline Respiratory: normal respiratory effort; no respiratory distress Cardiovascular: Rate/Rhythm: + irregularly irregular Gastrointestinal (Abdomen): normal bowel sounds, soft, nontender, no hepatosplenomegaly Inspection/Auscultation: + significant pannus Musculoskeletal: Head/Neck/Chest: normocephalic and head atraumatic Skin: no rashes, warm and dry Neurologic: moves all extremities Psychiatric: A+Ox3, euthymic affect Results & Data Results & Data ([facility]) Vital Signs (Past 12 Hours) Vital Signs Temp Pulse Pulse Resp BP Pulse Ox Pulse Ox 04/12/21 02:09 73 23 93 04/12/21 00:00 96 04/11/21 23:25 76 25 H 94 04/11/21 22:11 36.6 C 73 18 124/80 93 04/11/21 21:17 87 124/80 Resident Activity Tracking Resident Involvement: Resident Care Provided Care Provided: Adult Hospital Medicine (1) Diarrhea Diarrhea type: unspecified type Qualified Code(s): R19.7 - Diarrhea, unspecified
[2021-04-12 07:13] LABS: Basophils # (auto) 0.03 K/uL (0-0.2); Basophils % (auto) 0.5 %; Eosinophils # (auto) 0.25 K/uL (0-0.5); Eosinophils % (auto) 3.8 %; Hematocrit (blood only) 40.5 % (42-52); Hemoglobin 13.1 g/dL (14.0-18.0); Immature Granulocytes # (auto) 0.03 K/uL (0.00-0.02); Immature Granulocytes % (auto) 0.5 %; Lymphocytes # (auto) 1.28 K/uL (1.2-3.4); Lymphocytes % (auto) 19.4 %; Mean Corpuscular Hemoglobin 29.5 pg (25-34); Mean Corpuscular Hgb Conc 32.3 g/dL (32-36); Mean Corpuscular Volume 91.2 fL (80-100); Mean Platelet Volume 9.7 fL (7.4-10.4); Monocytes # (auto) 0.69 K/uL (0.11-0.59); Monocytes % (auto) 10.5 %; Neutrophils # (auto) 4.32 K/uL (1.4-6.5); Neutrophils % (auto) 65.3 %; Platelet Count 228 K/uL (130-400); RDW Coefficient of Variation 14.6 % (11.5-14.5); RDW Standard Deviation 48.6 fL (36.4-46.3); Red Blood Count 4.44 M/uL (4.7-6.1)
[2021-04-12 07:25] LABS: INR 2.7 (0.9-1.1)
[2021-04-12 07:37] LABS: BUN Creatinine Ratio 15.2 (10-20); Calcium 8.7 mg/dl (8.5-10.1); Creatinine Clr Calc Pharmacy 73.9 ml/min; Est GFR (African American) 50.4 ml/min; Est GFR (Non-African American) 43.5 ml/min; Potassium 4.3 mmol/L (3.5-5.1)
[2021-04-12] MEDS: CALCIUM 600MG + VIT D 400 IU TAB PO SCH (08:54)
[2021-04-12] MEDS: FUROSEMIDE 20 MG TAB PO SCH (08:54)
[2021-04-12] MEDS: ASPIRIN 81 MG ECTAB PO SCH (08:54)
[2021-04-12] MEDS: POTASSIUM CHLORIDE 10 MEQ TABCR PO SCH (08:55)
[2021-04-12] MEDS: METOPROLOL TARTRATE 50 MG TAB PO SCH ×2 (08:55→20:22)
[2021-04-12] MEDS: ATORVASTATIN 20 MG TAB PO SCH (08:55)
[2021-04-12] MEDS: CHOLECALCIFEROL 400 UNITS 10 MCG TAB PO SCH (08:55)
[2021-04-12] MEDS: CIPROFLOXACIN 500 MG TAB PO SCH (08:56)
[2021-04-12] MEDS: FEXOFENADINE HCL 180 MG TAB PO SCH (08:56)
[2021-04-12] MEDS: DICLOFENAC SOD 1% GEL 100 GM TUBE EXT SCH ×2 (08:56→20:19)
[2021-04-12] MEDS: dilTIAZem ER 120 MG CAPCR PO SCH (08:56)
[2021-04-12] MEDS: MICONAZOLE NITRATE POWDER 43 GM EXT SCH ×2 (08:57→20:20)
[2021-04-12] MEDS: OXYBUTYNIN CHLORIDE 5 MG TAB PO SCH ×2 (08:57→20:22)
[2021-04-12] MEDS: INSULIN ASPART PER UNIT SC SCH ×4 (09:05→20:35)
[2021-04-12] MEDS: CEROVITE ADV FORMULA TAB PO SCH (13:36)
[2021-04-12] MEDS ORDERED: WARFARIN SOD 5 MG TAB PO SCH (16:00)
[2021-04-12] MEDS ORDERED: WARFARIN SOD 2.5 MG TAB PO SCH (16:00)
[2021-04-12] MEDS ORDERED: WARFARIN SOD 1.25 MG TAB PO SCH (16:00)
--- NOTE | 2021-04-13 06:59 | Hospitalist Progress Note ---
Date of Service April 13, 2021 Assessment & Plan (1) Diarrhea: Plan: This 65-year-old man with a history of T2DM complicated by CKD stage 3, CHF, atrial fibrillation on anticoagulation, chronic venous insufficiency, recurrent DVTs, and morbid obesity s/p gastric bypass presented for generalized weakness and diarrhea. Diarrhea with associated fecal incontinence: - Etiology is infectious. - Enteropathogenic E. coli detected by PCR on stool analysis. - EPEC generally not treated with antibiotics, but is indicated in setting of persistent diarrhea, dehydration, and need for hospitalization. - Management: * Cipro 500 mg PO BID for total of 5 days -- completed on 04/11/21 * Encourage PO fluids Generalized weakness: - Secondary to dehydration from infectious diarrhea + chronic deconditioning - PT and OT eval: recommend discharge to inpatient renea ab . - Case management has reached out to several inpatient rehab facilities for bed availability. - Management: * PT evaluation to assess readiness for discharge. * CM assisting with placement * As above, patient agreeable to rehab/SNF but requesting home discharge with home health if no placement by Saturday 04/15 * Per review of PT note from 04/11, patient reasonably close to his baseline as he uses chairlift at home. We will continue to follow and consider discharge home with home health if appropriate and no placement by Saturday 04/15. Atrial fibrillation: - EKG showed active atrial fibrillation, irregularly irregular on exam - INR today at 2.8 (goal of 2-3). - home warfarin 7.5 mg QD except 3.25mg on Sun. In the setting of impaired Vit K absorption, we anticipated patient would return to therapeutic range on home regimen - however given that he continued to be subtherapeutic, received 5mg x1 on 04/10. Increased his Sunday dose from 3.25 to 5.0mg. - Trend INR - Rate control: metoprolol 50 mg PO BID and diltiazem 120 mg PO QD. Lower extremity swelling: - Baseline bilateral edema in setting of CHF and CKD stage 3 and venous insufficiency Asymptomatic bacteriuria: - UA on admission demonstrated +bacteria, LEs, WBCs, RBCs; culture growing Gram negative bacilli at 24 hours. - Asymptomatic (eg, no dysuria, urgency). - Acute UTI unlikely due to lack of symptoms. - Patient completed Cipro for EPEC diarrhea -- however UCx showed E. coli resistant to cipro - Without symptoms will not require treatment Type 2 diabetes mellitus: - Hgb A1c of 6.1. - POC glucose in 90s and 100s. - Holding glimepiride during admission. - Accuchecks ACHS with sliding scale. - Continue aspirin 81mg daily. - Patient is on moderate-intensity statin; consider increasing to 40-80mg daily as outpatient. CHF (congestive heart failure): - History of CHF. No active exacerbation. - Echo 02/24/2019 shows 55-60%, no wall motion abnormalities, mild LVH. - Volume status difficult to appreciate due to pt body habitus. Lungs clear, no SOB or JVD. - Continue diltiazem 120 mg PO daily, metoprolol 50 mg PO twice daily. Potassium chloride 10 mEq PO daily. CKD (chronic kidney disease), stage III: - Stable. - BUN and Cr at baseline. - Received 1 L NS IVF in ED. Will hold off on further IVF as long as patient is able to maintain adequate PO intake. - Continue Vit D, KCl supplements. - Renally dose all medications, avoid nephrotoxic medications. RANDY: - CPAP at night. Diet: DM2 diet, heart healthy DVT ppx: Warfarin, aspirin, SCDs Code: DNR/DNI Dispo: Med/surg, awaiting inpatient rehab/SNF placement Admission and Anticipated Discharge Date Admission Date: April 08, 2021 Supervising Physician Co-Signing Physician Notes I also saw the patient with the resident physician and confirmed aquino portions of the history and physical examination. Agree with the impression and plan as noted in the resident documentation. Upon exam, the patient is seated in the bedside chair. He has no complaints today. He tells us that he was able to get up and ambulate around the room, use the bathroom and returned to bed, without any difficulty. Exam 112/76, 76, 16, 36.3, 97% on room air Heart irregularly irregular Respirations nonlabored Abdomen is morbidly obese but soft and nontender Data INR is 2.8 Impression and plan diarrhea/weakness Enteropathic e. coli, treated with ciprofloxacin, with improvement in symptoms Strength continues to improve and at this point may return home with services Chronic atrial fibrillation on chronic anticoagulation, warfarin PT within range today Chronic diastolic congestive heart failure Continue Lasix and metoprolol Additional per resident documentation Subjective No acute events overnight. Patient sitting in bedside chair, reports feeling much better. His loose stools continue to improve. Review of Systems Review of Systems: Denies CP, palp, cough, SOB, abd pain, n/v, bloody stool, neuro deficits, NUR, dizziness Physical Exam Constitutional: WD/WN, vitals as above + morbidly obese and comfortable; no acute distress Eyes: + anicteric sclerae ENMT: external ear and nose normal, oropharynx normal Neck: trachea midline Respiratory: normal respiratory effort; no respiratory distress Cardiovascular: Rate/Rhythm: + irregularly irregular Gastrointestinal (Abdomen): normal bowel sounds, soft, nontender, no hepatosplenomegaly Inspection/Auscultation: + significant pannus Musculoskeletal: Head/Neck/Chest: normocephalic and head atraumatic Skin: no rashes, warm and dry Neurologic: moves all extremities Psychiatric: A+Ox3, euthymic affect Results & Data Results & Data ([facility]) Vital Signs (Past 12 Hours) Vital Signs Temp Pulse Pulse Resp BP Pulse Ox Pulse Ox 04/13/21 00:00 96 04/12/21 22:17 36.5 C 66 18 109/69 97 04/12/21 21:00 78 31 H 94 04/12/21 20:21 77 111/67 Resident Activity Tracking Resident Involvement: Resident Care Provided Care Provided: Adult Hospital Medicine (1) Diarrhea Diarrhea type: unspecified type Qualified Code(s): R19.7 - Diarrhea, unspecified
[2021-04-13 08:42] LABS: INR 2.8 (0.9-1.1); Prothrombin Time 26.1 Seconds (9.0-12.0)
[2021-04-13] MEDS: INSULIN ASPART PER UNIT SC SCH ×4 (09:08→22:04)
[2021-04-13] MEDS: ASPIRIN 81 MG ECTAB PO SCH (09:13)
[2021-04-13] MEDS: CHOLECALCIFEROL 400 UNITS 10 MCG TAB PO SCH (09:14)
[2021-04-13] MEDS: ATORVASTATIN 20 MG TAB PO SCH (09:14)
[2021-04-13] MEDS: CALCIUM 600MG + VIT D 400 IU TAB PO SCH (09:14)
[2021-04-13] MEDS: FEXOFENADINE HCL 180 MG TAB PO SCH (09:15)
[2021-04-13] MEDS: dilTIAZem ER 120 MG CAPCR PO SCH (09:15)
[2021-04-13] MEDS: CEROVITE ADV FORMULA TAB PO SCH (09:16)
[2021-04-13] MEDS: POTASSIUM CHLORIDE 10 MEQ TABCR PO SCH (09:16)
[2021-04-13] MEDS: FUROSEMIDE 20 MG TAB PO SCH (09:16)
[2021-04-13] MEDS: MICONAZOLE NITRATE POWDER 43 GM EXT SCH ×2 (09:18→21:01)
[2021-04-13] MEDS: METOPROLOL TARTRATE 50 MG TAB PO SCH ×2 (09:18→21:00)
[2021-04-13] MEDS: OXYBUTYNIN CHLORIDE 5 MG TAB PO SCH ×2 (09:19→21:00)
[2021-04-13] MEDS: DICLOFENAC SOD 1% GEL 100 GM TUBE EXT SCH ×2 (09:19→20:59)
[2021-04-13 17:00] LABS: INR 2.7 (0.9-1.1); Prothrombin Time 25.1 Seconds (9.0-12.0)
[2021-04-13] MEDS: WARFARIN SOD 7.5 MG TAB PO SCH (17:52)
[2021-04-14] MEDS: ASPIRIN 81 MG ECTAB PO SCH (08:38)
[2021-04-14] MEDS: CALCIUM 600MG + VIT D 400 IU TAB PO SCH (08:39)
[2021-04-14] MEDS: CHOLECALCIFEROL 400 UNITS 10 MCG TAB PO SCH (08:39)
[2021-04-14] MEDS: ATORVASTATIN 20 MG TAB PO SCH (08:39)
[2021-04-14] MEDS: DICLOFENAC SOD 1% GEL 100 GM TUBE EXT SCH (08:40)
[2021-04-14] MEDS: dilTIAZem ER 120 MG CAPCR PO SCH (08:41)
[2021-04-14] MEDS: FEXOFENADINE HCL 180 MG TAB PO SCH (08:41)
[2021-04-14] MEDS: METOPROLOL TARTRATE 50 MG TAB PO SCH (08:42)
[2021-04-14] MEDS: FUROSEMIDE 20 MG TAB PO SCH (08:42)
[2021-04-14] MEDS: MICONAZOLE NITRATE POWDER 43 GM EXT SCH (08:43)
[2021-04-14] MEDS: CEROVITE ADV FORMULA TAB PO SCH (08:43)
[2021-04-14] MEDS: OXYBUTYNIN CHLORIDE 5 MG TAB PO SCH (08:43)
[2021-04-14] MEDS: POTASSIUM CHLORIDE 10 MEQ TABCR PO SCH (08:44)
[2021-04-14] MEDS: INSULIN ASPART PER UNIT SC SCH ×3 (08:50→17:37)
--- NOTE | 2021-04-14 11:43 | Discharge Summary ---
Date of Service April 14, 2021 Admission HPI Per Admitting Provider Patient is a 64-year-old male past medical history of atrial fibrillation on anticoagulation, RANDY, HLD, HTN, chronic venous insufficiency, CHF, recurrent DVT DM2, gastric bypass, and CKD3 who presents today with generalized weakness over the past several days. Patient has been very frequent that two weeks ago, he began experiencing persistent diarrhea and dark, foul smelling urine. Denies blood in stool, and he is struggled to make it to the bathroom. He started taking Imodium two days ago at the advice of this PCP, which has started to give him some relief today, and also scheduled an appt with his urologist with [facility] in [place] for his urinary symptoms, which was scheduled for this Sunday, however over the past two days he has had body chills and feels weak, which prompted him to present to the ED for evaluation. He states his weakness is generalized, and he attributes it to the constant diarrhea that is causing him to be dehydrated. He has an appetite, but states everything he is eating and drinking is going right through him. State he has seen undigested pills in his stool. Additionally, he notes significant b/l lower extremity edema that has developed over the past several days. States he has some edema at baseline, however his legs are nearly double the size they normally are and he cannot get his shoes on. Denies chest pain/tightness, palpitations, shortness of breath, dyspnea on exertion, cough, dizziness, syncopal episodes, abdominal pain, nausea, vomiting, dysuria, VSS, BP 145/91, HR 100, 96% on RA. Work-up in the ED was significant for UA which was positive for bacteria, blood, WBCs, and leuk esterase. Alk phos elevated at 108, BUN/Cr at patient's baseline, glucose 128, no WBC elevation, but neutrophil:lymphocyte is 10.4. ED staff attempted to send patient for CT of abdomen and pelvis, however patient refused this due to severe discomfort and back pain it causes him to lay flat for imaging. Patient was to be discharged on Macrobid for his urinary infection, however he feels he is too weak to return home, fears he will fall, and is requesting hospitalization with planned placement to a rehab facility. Principal Diagnosis EPEC Discharge Exam Constitutional: WD/WN, vitals as above + morbidly obese and comfortable; no acute distress Eyes: + anicteric sclerae ENMT: external ear and nose normal, oropharynx normal Neck: trachea midline Respiratory: normal respiratory effort; no respiratory distress Cardiovascular: Rate/Rhythm: + irregularly irregular Gastrointestinal (Abdomen): normal bowel sounds, soft, nontender, no hepatosplenomegaly Inspection/Auscultation: + significant pannus Musculoskeletal: Head/Neck/Chest: normocephalic and head atraumatic Skin: no rashes, warm and dry Neurologic: moves all extremities Psychiatric: A+Ox3, euthymic affect Discharge Data Allergies Allergy/AdvReac Type Severity Reaction Status Date / Time No Known Allergies Allergy Verified 04/06/21 19:09 Consultations 04/06/21 19:07 ED Decision to Admit Stat Hospital Course (1) Diarrhea: This 65-year-old man with a history of T2DM complicated by CKD stage 3, CHF, atrial fibrillation on anticoagulation, chronic venous insufficiency, recurrent DVTs, and morbid obesity s/p gastric bypass presented for generalized weakness and diarrhea. Diarrhea with associated fecal incontinence: - Etiology is infectious. - Enteropathogenic E. coli detected by PCR on stool analysis. - EPEC generally not treated with antibiotics, but is indicated in setting of persistent diarrhea, dehydration, and need for hospitalization. - Management: * Cipro 500 mg PO BID for total of 5 days -- completed on 04/11/21 * Encourage PO fluids at home, no further meds Generalized weakness: - Secondary to dehydration from infectious diarrhea + chronic deconditioning - PT and OT evaluated --initially recommending inpatient rehab, and then SNF, however patient did improve in terms of functional status and was preferring to go home where he felt he would be able to move around and function appropriately -Case management assisted with setting up home health physical therapy for continued treatment Atrial fibrillation: - EKG showed active atrial fibrillation, irregularly irregular on exam - INR therapeutic at discharge(goal of 2-3). - home warfarin 7.5 mg QD except 3.25mg on Sun. In the setting of impaired Vit K absorption, we anticipated patient would return to therapeutic range on home regimen - however given that he continued to be subtherapeutic, received 5mg x1 on 04/10. Increased his Sunday dose from 3.25 to 5.0mg during admission -Discharged with regular home regimen - Rate control: metoprolol 50 mg PO BID and diltiazem 120 mg PO QD. Lower extremity swelling: - Baseline bilateral edema in setting of CHF and CKD stage 3 and venous insuffic iency Asymptomatic bacteriuria: - UA on admission demonstrated +bacteria, LEs, WBCs, RBCs; culture growing Gram negative bacilli at 24 hours. - Asymptomatic (eg, no dysuria, urgency). - Acute UTI unlikely due to lack of symptoms. - Patient completed Cipro for EPEC diarrhea -- however UCx showed E. coli resistant to cipro - Without symptoms will not require treatment Type 2 diabetes mellitus: - Hgb A1c of 6.1. - Holding glimepiride during admission continue at discharge - Accuchecks ACHS with sliding scale while admitted - Continue aspirin 81mg daily. - Patient is on moderate-intensity statin; consider increasing to 40-80mg daily as outpatient. CHF (congestive heart failure): - History of CHF. No active exacerbation. - Echo 02/24/2019 shows 55-60%, no wall motion abnormalities, mild LVH. - Volume status difficult to appreciate due to pt body habitus. Lungs clear, no SOB or JVD. - Continue diltiazem 120 mg PO daily, metoprolol 50 mg PO twice daily. Potassium chloride 10 mEq PO daily. CKD (chronic kidney disease), stage III: - Stable. - BUN and Cr at baseline. - Received 1 L NS IVF in ED. Will hold off on further IVF as long as patient is able to maintain adequate PO intake. - Continue Vit D, KCl supplements. RANDY: - CPAP at night. Dispo: Home with home health therapy Total Time Total Time Spent Total Time Spent (In Minutes): 25 mins Discharge Plan Discharge Items Patient Disposition: Home - Home Health Services Reason For Visit: GENERAL WEAKNESS Discharge Diagnosis: Enteropathogenic E. coli infection Condition on Discharge: Good Activity: Per Instructions section Non-emergency contact: Primary Care Provider Call non-emergency contact if: you have any medication questions, your symptoms worsen and your temperature is above 101 Follow-up/Referrals: Wanda Lantigua PA-C [Primary Care Provider] - 04/22/21 3:00 pm Diet: Heart Healthy Addtl Attending Provider Instructions: You were admitted to [facility] due to weakness and diarrhea. You were found to have a bacteria called enteropathogenic E. coli in your stool. Due to your significant symptoms, you were treated with an antibiotic called ciprofloxacin twice daily for a total of 5 days, which you completed while you were hospitalized. Due to your weakness, you were evaluated by PT and OT, who had initially recommended discharging you to inpatient rehabilitation. However, since no beds were available at rehab facilities, you continued to work with PT while admitted at our hospital and were able to improve significantly in terms of your weakness. As discussed with you, we believe you are safe for discharge home with home physical therapy. This has been set up for you by our trimming caser and they will come to your home for treatments. We recommend that you follow with your primary care provider for discussion of your hospitalization and continued care going forward. Please continue to take all your regular medications as prescribed. If you develop any severe symptoms, please return to the hospital for further evaluation. Pending Studies at Discharge: No Stand-Alone Forms: My [facility] [place], Smoking Cessation Medications and DC Order Prescriptions: Continued glimepiride 2 mg tablet 2 mg PO QDB Qty: 30 RF: 11 metoprolol tartrate 50 mg tablet 50 mg PO BID Qty: 60 RF: 11 atorvastatin 20 mg tablet 20 mg PO DAILY Qty: 30 RF: 5 potassium chloride 10 mEq tablet extended release 10 meq PO DAILY Qty: 30 RF: 5 diltiazem HCl 120 mg capsule,extended release 12 hr 120 mg PO DAILY Qty: 30 RF: 11 warfarin 7.5 mg tablet 7.5 mg PO .COMPLEX Qty: 30 RF: 5 mirabegron 25 mg tablet extended release 24 hr 25 mg PO DAILY RF: 0 oxybutynin chloride 5 mg tablet 5 mg PO BID RF: 0 sennosides-docusate sodium [Senna-S] 8.6-50 mg Tablet 1 tab PO DAILY RF: 0 fexofenadine [Anju Allergy] 180 mg Tablet 180 mg PO DAILY RF: 0 ascorbic acid (vitamin C) [Vitamin C] 500 mg Tablet,Chewable 500 mg PO DAILY RF: 0 omeprazole magnesium [Prilosec OTC] 20 mg Tablet,Delayed Release (Dr/Ec) 20 mg PO DAILY RF: 0 cholecalciferol (vitamin D3) [Vitamin D3] 400 unit Tablet,Chewable 400 unit PO DAILY RF: 0 Flintstones Gummies Tablet,Chewable 1 tab PO DAILY RF: 0 calcium-vitamin D3-vitamin K [Viactiv] 650 mg-12.5 mcg-40 mcg Tablet,Chewable 1 tab PO DAILY RF: 0 aspirin [Ecotrin Low Strength] 81 mg Tablet,Delayed Release (Dr/Ec) 81 mg PO QAM Qty: 30 RF: 3 pantoprazole 40 mg Tablet,Delayed Release (Dr/Ec) 40 mg PO DAILY RF: 0 furosemide 20 mg tablet 20 - 40 mg PO DAILY RF: 0 Discharge Orders: Discharge Order (Routine); Ordered 04/14/21 Ordered By: Andrea Case/Other Patient Handouts: Managing Type 2 Diabetes Admission Data Admit Date/Time: 04/08/21 17:17 Attending Provider: Isac Willis Admit Provider: Yana Kearney Primary Care Provider: Wanda Lantigua Other Providers: Randell Chow ; [facility] ; [facility] ; [facility], ; [facility] ; [facility] Supervising Physician Co-Signing Physician Notes I also saw the patient with the resident physician and confirmed aquino portions of the history and physical examination. Agree with the impression and plan as noted in the resident documentation. Upon exam, the patient is seated in the bedside chair. He has no complaints today. He is anticipating discharge later today Exam 120/72, 66, 16, 36.4, 95% on room air Heart irregularly irregular Respirations nonlabored Abdomen is morbidly obese but soft and nontender Impression and plan diarrhea/weakness Enteropathic e. coli, treated with ciprofloxacin, with improvement in symptoms Strength continues to improve and at this point may return home with services Chronic atrial fibrillation on chronic anticoagulation, warfarin Continue Coumadin with INR per PCP Chronic diastolic congestive heart failure Continue Lasix and metoprolol Additional per resident documentation Resident Activity Tracking Resident Involvement: Resident Care Provided Care Provided: Adult Hospital Medicine
[2021-04-14] MEDS: WARFARIN SOD 7.5 MG TAB PO SCH (17:24)
== END 2021-04-14 17:45 | disposition home health service (06) | DRG 372 ==
LOC: ED 13:59 → 3W 13:59 → SUATTDRO 20:00 → 3W 04-07 00:16 → SUATTDRO 04-08 17:17

== ENCOUNTER 2021-07-24 14:28 | Observation (INO) ==
--- NOTE | 2021-07-24 15:15 | Emergency Department Note ---
History of Present Illness General Chief complaint: Leg Injury/Pain Stated complaint: SORE ON LEG Time Seen by Provider: 07/24/21 14:44 History of Present Illness Maximum Pain Intensity: 1 This is a 65-year-old male with a history of type 2 diabetes, CHF, sleep apnea, chronic venous insufficiency, anemia, history of Abhijit-en-Y gastric bypass, morbid obesity, atrial fibrillation on warfarin, DVT, who presents requesting evaluation for a wound on the back of his left lower leg. He also describes some pain and swelling in his scrotum and states that it has been draining. A family member looked at the wound on his leg and wanted him to be seen for possible infection. He states that the left leg has been more swollen for the past several months. He is not able to see the wound on the back of the leg. He does not have any pain in this area although does not have much feeling in his legs or feet. Patient also states that he has been dealing with ongoing diarrhea. He was seen in this emergency department 4 months ago and initially was doing better, but then his symptoms returned and have been persistent. There is no blood in his stool. He has been taking all of his medications as prescribed, eating and drinking normally. He denies any fevers but states that he is cold all the time. He denies any chest pain, shortness of breath, cough, abdominal pain, nausea, vomiting, dysuria, hematuria, difficulty urinating, lightheadedness, dizziness. Home Medications Medication Instructions Recorded Confirmed Type ascorbic acid (vitamin C) 500 mg 500 mg PO DAILY 01/03/19 07/24/21 History chewable tablet (Vitamin C) calcium 650 mg-vitamin D3 12.5 1 tab PO DAILY 01/03/19 07/24/21 History mcg-vitamin K 40 mcg chewable tablet (Viactiv) cholecalciferol (vitamin D3) 10 400 unit PO DAILY 01/03/19 07/24/21 History mcg (400 unit) chewable tablet (Vitamin D3) fexofenadine 180 mg tablet 180 mg PO DAILY 01/03/19 07/24/21 History (Anju Allergy) pediatric multivitamin no.49 1 tab PO DAILY 01/03/19 07/24/21 History (Flintstones Gummies) aspirin 81 mg tablet,delayed 81 mg PO QAM #30 tab 02/26/19 07/24/21 Rx release (Ecotrin Low Strength) diltiazem HCl 120 mg 120 mg PO DAILY #30 cap 01/11/21 07/24/21 Rx capsule,extended release 12 hr warfarin 7.5 mg tablet 7.5 mg PO .COMPLEX #30 tab 02/10/21 07/24/21 Rx atorvastatin 20 mg tablet 20 mg PO DAILY #30 tab 06/07/21 07/24/21 Rx furosemide 20 mg tablet 20 - 40 mg PO DAILY #180 tab 06/22/21 07/24/21 Rx glimepiride 2 mg tablet 2 mg PO DAILY #90 tab 06/22/21 07/24/21 Rx metoprolol tartrate 50 mg tablet 50 mg PO BID #180 tab 06/27/21 07/24/21 Rx potassium chloride 10 mEq 10 meq PO DAILY #90 tab 07/20/21 07/24/21 Rx tablet,extended release oxybutynin chloride 10 mg 10 mg PO BID 07/24/21 07/24/21 History tablet,extended release 24 hr Allergies Allergy/AdvReac Type Severity Reaction Status Date / Time No Known Allergies Allergy Verified 07/24/21 15:24 Past Med/Surg History Medical History Anemia Atrial fibrillation Bilateral hydrocele CHF (congestive heart failure) CKD (chronic kidney disease), stage III Kidney stones Morbid obesity with BMI of 50.0-59.9, adult New onset atrial fibrillation RANDY on CPAP Pyelonephritis of left kidney Type 2 diabetes mellitus Urinary pain Surgical History History of nephrostomy History of Abhijit-en-Y gastric bypass Family History Other Family history non-contributory Social History Smoking Status: Never smoker Second Hand Exposure: No; Hx Alcohol Use: No Hx Substance Use: No Preferred Language: Albanian Communication Ability: Effective Remote Sensing Scientist Required: No Beliefs That Will Affect Care: None marital status: Single Current Living Situation: Alone current occupational status: employed How many Children do You have: 0 Other Information That Helps Us Care for You: No Feels Safe at Home: Yes Safety Concerns: Feels Safe At This Time Assistive Devices: CPAP and Walker Review of Systems See HPI for pertinent positives & negatives. and A total of 10 systems reviewed and were otherwise negative Physical Exam Vital Signs Vital Signs - 24 hr 07/24/21 14:33 07/24/21 15:38 07/24/21 17:00 Temperature 97.7 F Temperature Source Oral Pulse Rate 84 Pulse Rate [Finger] 87 93 H Respiratory Rate 20 20 19 Respiratory Depth Normal Blood Pressure 144/73 H Blood Pressure [Right Arm] 166/89 H 139/87 Blood Pressure Mean 96 Blood Pressure Mean [Right Arm] 114 104 Pulse Oximetry 90 98 96 Oxygen Delivery Method Room Air Sepsis Recent Fever Within 48 Hours No Sepsis New/Unexplained Change in Mental Status No Sepsis Action Taken by Nursing No Action Required CONSTITUTIONAL: Obese, somewhat unkempt, pleasant, conversational, in no acute distress. HEAD: Normocephalic, atraumatic. EYES: conjunctivae normal, extraocular muscles intact. ENMT: External ears normal. Nose with normal external appearance, no congestion. Oral mucous membranes moist. Oropharynx normal. NECK: Full active range of motion. RESPIRATORY: Breathing unlabored and symmetric. Lungs clear to auscultation bilaterally. No wheeze, rales, or rhonchi. CARDIOVASCULAR: Regular rate and rhythm. No murmurs, rubs, or gallops. ABDOMEN: Obese abdomen with healed scar on R anterior portion, intact. there is a R sided and ventral abdominal hernias nontender, easily reduced, no overlying skin color changes. Abdomen is soft and nontender. GENITOURINARY: Manager Clinical Informatics present. Exam somewhat limited due to body habitus. Penis not visualized. Scrotum is edematous, weepy, and erythematous with superficial ulcerations. No obvious scrotal tenderness. Perineum no crepitus or obvious rash. MUSCULOSKELETAL: Left lower extremity: 2+ pitting edema. There is evidence of venous stasis skin changes. There is a malodorous 5 x 5 cm wound on the posterior calf, does not track or penetrate deeply. There is surrounding skin erythema and warmth on the posterior leg from the knee to the ankle. Left lateral heel with 3 cm superficial pressure ulcer. Right lower extremity: Trace pitting edema. Venous stasis skin changes. No obvious wounds Bilateral feet/toes with evidence of multiple toes with less than 1 cm dry gangrene in distal portions of toes. SKIN: [place], warm, dry. NEUROLOGIC: Alert and oriented x 3. Moves all toes on bilateral lower extremities. No sensation in bilateral feet or lower legs, baseline per patient. Cranial nerves grossly intact. PSYCHIATRIC: Appropriate. Normal affect. Course Administered Medications Insulin Aspart (Insulin Aspart Per Unit) 0 units SC ACHS LAKESHIA Stop: 08/23/21 20:59 Last Admin: 07/24/21 21:27 Dose: Not Given Documented by: [id number] Metoprolol Tartrate (Metoprolol Tartrate 50 Mg Tab) 50 mg PO BID LAKESHIA Stop: 08/23/21 20:59 Last Admin: 07/24/21 21:31 Dose: 50 mg Documented by: [id number] Oxybutynin Chloride (Oxybutynin Chloride Xl 5 Mg Tabcr) 10 mg PO BID LAKESHIA Stop: 08/23/21 20:59 Last Admin: 07/24/21 21:31 Dose: 10 mg Documented by: [id number] Discontinued Medications Furosemide (Furosemide 40 Mg/4 Ml Vial) 40 mg IV ONE ONE Stop: 07/24/21 18:29 Last Admin: 07/24/21 18:34 Dose: 40 mg Documented by: [id number] Daptomycin 475 mg/ Syringe 9.5 mls @ 4.75 mls/min IV NOW ONE; Protocol Stop: 07/24/21 17:45 Last Admin: 07/24/21 18:07 Dose: 4.75 mls/min Documented by: [id number] Piperacillin Sod/Tazobactam Sod (Zosyn) 4.5 gm in 120 mls @ 240 mls/hr IV NOW ONE Stop: 07/24/21 18:13 Last Infusion: 07/24/21 18:25 Dose: 0 mls/hr Documented by: [id number] Admin: 07/24/21 17:54 Dose: 240 mls/hr Documented by: [id number] Medical Decision Making Laboratory Data Result diagrams: 07/24/21 15:10 07/24/21 15:56 Lab Results 07/24/21 07/24/21 07/24/21 Range/Units 15:10 15:10 15:10 WBC 7.98 (4.8-10.8) K/uL RBC 4.16 L (4.7-6.1) M/uL Hgb 12.0 L (14.0-18.0) g/dL Hct 37.2 L (42-52) % MCV 89.4 (80-100) fL MCH 28.8 (25-34) pg MCHC 32.3 (32-36) g/dL RDW Std Deviation 50.8 H (36.4-46.3) fL RDW Coeff of Evan 15.6 H (11.5-14.5) % Plt Count 344 (130-400) K/uL MPV 9.7 (7.4-10.4) fL Immature Gran % (Auto) 1.0 % Neut % (Auto) 76.7 % Lymph % (Auto) 10.3 % [place] % (Auto) 7.3 % Eos % (Auto) 4.3 % Baso % (Auto) 0.4 % Neut # (Auto) 6.13 (1.4-6.5) K/uL Lymph # (Auto) 0.82 L (1.2-3.4) K/uL [place] # (Auto) 0.58 (0.11-0.59) K/uL Eos # (Auto) 0.34 (0-0.5) K/uL Baso # (Auto) 0.03 (0-0.2) K/uL Immature Gran # (Auto) 0.08 H (0.00-0.02) K/uL PT 55.0 H (9.0-12.0) Seconds INR 5.7 H* (0.9-1.1) Sodium Cancelled Potassium Cancelled Chloride Cancelled Carbon Dioxide Cancelled Anion Gap Cancelled BUN Cancelled Creatinine Cancelled Est Cr Clr Drug Dosing Cancelled Est GFR ( Amer) Cancelled Est GFR (Non-Af Amer) Cancelled BUN/Creatinine Ratio Cancelled Glucose Cancelled Calcium Cancelled Magnesium Cancelled Total Bilirubin Cancelled AST Cancelled ALT Cancelled Alkaline Phosphatase Cancelled B-Natriuretic Peptide (0-100) pg/ml Total Protein Cancelled Albumin Cancelled Globulin Cancelled Albumin/Globulin Ratio Cancelled SARS-CoV-2, RNA, NAAT (NEGATIVE) 07/24/21 07/24/21 07/24/21 Range/Units 15:56 15:56 17:21 WBC (4.8-10.8) K/uL RBC (4.7-6.1) M/uL Hgb (14.0-18.0) g/dL Hct (42-52) % MCV (80-100) fL MCH (25-34) pg MCHC (32-36) g/dL RDW Std Deviation (36.4-46.3) fL RDW Coeff of Evan (11.5-14.5) % Plt Count (130-400) K/uL MPV (7.4-10.4) fL Immature Gran % (Auto) % Neut % (Auto) % Lymph % (Auto) % [place] % (Auto) % Eos % (Auto) % Baso % (Auto) % Neut # (Auto) (1.4-6.5) K/uL Lymph # (Auto) (1.2-3.4) K/uL [place] # (Auto) (0.11-0.59) K/uL Eos # (Auto) (0-0.5) K/uL Baso # (Auto) (0-0.2) K/uL Immature Gran # (Auto) (0.00-0.02) K/uL PT (9.0-12.0) Seconds INR (0.9-1.1) Sodium 139 Potassium 4.3 Chloride 106 Carbon Dioxide 27 Anion Gap 6 BUN 26 H Creatinine 1.74 H Est Cr Clr Drug Dosing 71.1 Est GFR ( Amer) 47.3 Est GFR (Non-Af Amer) 40.8 BUN/Creatinine Ratio 14.9 Glucose 98 Calcium 8.5 Magnesium 2.0 Total Bilirubin 0.6 AST 17 ALT 12 Alkaline Phosphatase 68 B-Natriuretic Peptide 123 H (0-100) pg/ml Total Protein 7.2 Albumin 3.0 L Globulin 4.2 H Albumin/Globulin Ratio 0.7 L SARS-CoV-2, RNA, NAAT NEGATIVE (NEGATIVE) Imaging Data Radiologist's Impression: Scrotum Ultrasound 07/24/21 15:09 ULTRASOUND TESTES AND SCROTUM CLINICAL HISTORY: Scrotal pain, swelling, and erythema. COMPARISON STUDY: No priors. TECHNIQUE: Real-time, grayscale, and color Doppler sonography of the testes and scrotum is performed. Images are reviewed in the transverse and longitudinal planes. FINDINGS: The testes are normal in size and heterogeneous in echotexture. The right testis measures 4.7 x 3.3 x 3.5 cm and the left testis measures 4.6 x 3.6 x 3.2 cm. No intratesticular mass is seen. Testicular blood flow is normal and symmetric. Normal Doppler waveforms are identified in both testes. The epididymal heads are normal in appearance. There are small right and moderate left-sided hydroceles. No varicocele is identified. Scrotal wall thickening is suggested. IMPRESSION: 1. No acute sonographic abnormality is identified. 2. Left larger than right hydroceles. 3. Scrotal wall thickening is suggested. ACT 112: Negative or not required by law. Electronically signed by: Karl Westbrook M.D. 07/24/2021 5:02 PM Venous Doppler Study 07/24/21 15:09 ULTRASOUND LEFT LOWER EXTREMITY VENOUS CLINICAL HISTORY: Lower extremity wound and erythema. Swelling. COMPARISON STUDY: Bilateral lower extremity venous ultrasound dated 12/03/2016 TECHNIQUE: Real-time, grayscale, and color Doppler sonography of the deep veins of the left lower extremity was performed from the inguinal crease to the calf. Compression and augmentation were utilized. The examination is degraded by large body habitus. FINDINGS: There is no sonographic evidence of deep venous thrombosis identified in the left lower extremity. The common femoral and superficial femoral veins are patent and normally compressible. The left popliteal vein was not visualized. The greater saphenous vein and the profunda femoris vein at the junction with the common femoral vein are clear. The visualized calf veins are patent. IMPRESSION: There is no sonographic evidence of deep venous thrombosis identified in the left lower extremity noting nonvisualization of the popliteal vein. ACT 112: Negative or not required by law. Electronically signed by: Karl Westbrook M.D. 07/24/2021 5:00 PM Chest X-Ray 07/24/21 15:19 SINGLE VIEW CHEST CLINICAL HISTORY: Lower extremity edema FINDINGS: An AP, portable, upright chest radiograph is compared to study dated 01/03/2019. The examination is degraded by portable technique and patient rotation. The heart is enlarged. The pulmonary vasculature is noncongested. C hronic interstitial thickening is similar to previous. There is chronic elevation of the right hemidiaphragm and bibasilar atelectasis. No airspace consolidation or large pleural effusion is identified. No pneumothorax is seen. The skeletal structures are osteopenic. There are healed left-sided rib fractures. IMPRESSION: Cardiomegaly with no acute cardiopulmonary abnormality identified. ACT 112: Negative or not required by law. Electronically signed by: Karl Westbrook M.D. 07/24/2021 5:18 PM MDM Narrative 65-year-old male presents for evaluation of a wound on the left posterior calf. He has a complex medical history as described above. On exam he is overall relatively well-appearing in no acute distress although is somewhat unkempt and not taking care of himself properly. He is conversational, afebrile without any fever reducing medications. Does not meet sepsis criteria. He has a clear pressure wound on the posterior calf with surrounding cellulitis from the knee to the ankle. There is 2+ edema in the leg, suspect this from infection. His scrotum is edematous, erythematous with superficial ulcerations. Patient also describes ongoing diarrhea for several months, has follow-up with [facility]. Ultrasound of the left leg is negative for DVT which is not surprising as his INR is elevated at 5.7. He states that this was checked once last month, and no t for 6 months before that. Ultrasound of the scrotum was also obtained for diffuse edema and superficial ulcers. Hydroceles were appreciated, no additional pathology noted in this area. No evidence of Kacie's gangrene. No leukocytosis. Anemia stable. Creatinine is at about baseline, slightly elevated. Patient was evaluated by ED attending Dr. Rojas who agrees admission is warranted. I discussed the case with Dr. Queen (hospitalist) who agrees to admit the patient. She recommends Zosyn and daptomycin for the cellulitis of the leg and scrotum. Impression & Plan Cellulitis of left leg, Pressure ulcer of left leg, Bilateral hydrocele, Supratherapeutic INR, Cellulitis of scrotum Discharge Plan Visit Data Chief Complaint: Leg Injury/Pain Stated Complaint: SORE ON LEG ED Provider: Fermín Rojas ED Midlevel Provider: Scotty Mccray Discharge Problem: Cellulitis of left leg, Pressure ulcer of left leg, Bilateral hydrocele, Supratherapeutic INR, Cellulitis of scrotum Patient Disposition: Admitted As Inpatient Discharge Instructions Interventions: ED Discharge Assessment Last Done: 07/24/21 19:32
[2021-07-24 15:54] LABS: Basophils # (auto) 0.03 K/uL (0-0.2); Basophils % (auto) 0.4 %; Eosinophils # (auto) 0.34 K/uL (0-0.5); Eosinophils % (auto) 4.3 %; Hematocrit (blood only) 37.2 % (42-52); Immature Granulocytes # (auto) 0.08 K/uL (0.00-0.02); Lymphocytes # (auto) 0.82 K/uL (1.2-3.4); Lymphocytes % (auto) 10.3 %; Mean Corpuscular Hemoglobin 28.8 pg (25-34); Mean Corpuscular Hgb Conc 32.3 g/dL (32-36); Mean Corpuscular Volume 89.4 fL (80-100); Mean Platelet Volume 9.7 fL (7.4-10.4); Monocytes # (auto) 0.58 K/uL (0.11-0.59); Monocytes % (auto) 7.3 %; Neutrophils # (auto) 6.13 K/uL (1.4-6.5); Neutrophils % (auto) 76.7 %; Platelet Count 344 K/uL (130-400); RDW Coefficient of Variation 15.6 % (11.5-14.5); RDW Standard Deviation 50.8 fL (36.4-46.3); Red Blood Count 4.16 M/uL (4.7-6.1); White Blood Count 7.98 K/uL (4.8-10.8)
[2021-07-24 16:04] LABS: INR 5.7 (0.9-1.1)
[2021-07-24 16:54] LABS: Albumin Globulin Ratio 0.7 (0.9-2); BUN Creatinine Ratio 14.9 (10-20); Bilirubin,Total 0.6 mg/dl (0.2-1.0); Calcium 8.5 mg/dl (8.5-10.1); Creatinine Clr Calc Pharmacy 71.1 ml/min; Est GFR (African American) 47.3 ml/min; Est GFR (Non-African American) 40.8 ml/min; Globulin 4.2 gm/dl (2.5-4.0); Total Protein 7.2 gm/dl (6.0-8.3)
--- NOTE | 2021-07-24 17:01 | Ultrasound Report ---
ULTRASOUND LEFT LOWER EXTREMITY VENOUS CLINICAL HISTORY: Lower extremity wound and erythema. Swelling. COMPARISON STUDY: Bilateral lower extremity venous ultrasound dated 12/03/2016 TECHNIQUE: Real-time, grayscale, and color Doppler sonography of the deep veins of the left lower ext remity was performed from the inguinal crease to the calf. Compression and augmentation were utilized . The examination is degraded by large body habitus. FINDINGS: There is no sonographic evidence of deep venous thrombosis identified in the left lower ext remity. The common femoral and superficial femoral veins are patent and normally compressible. The le ft popliteal vein was not visualized. The greater saphenous vein and the profunda femoris vein at the junction with the common femoral vein are clear. The visualized calf veins are patent. IMPRESSION: There is no sonographic evidence of deep venous thrombosis identified in the left lower e xtremity noting nonvisualization of the popliteal vein. ACT 112: Negative or not required by law. Electronically signed by: Karl Westbrook M.D. 07/24/2021 5:00 PM
--- NOTE | 2021-07-24 17:03 | Ultrasound Report ---
ULTRASOUND TESTES AND SCROTUM CLINICAL HISTORY: Scrotal pain, swelling, and erythema. COMPARISON STUDY: No priors. TECHNIQUE: Real-time, grayscale, and color Doppler sonography of the testes and scrotum is performed. Images are reviewed in the transverse and longitudinal planes. FINDINGS: The testes are normal in size and heterogeneous in echotexture. The right testis measures 4.7 x 3.3 x 3.5 cm and the left testis measures 4.6 x 3.6 x 3.2 cm. No intratesticular mass is seen. Testicular blood flow is normal and symmetric. Normal Doppler waveforms are identified in both testes. The epididymal heads are normal in appearance. There are small right and moderate left-sided hydroceles. No varicocele is identified. Scrotal wall t hickening is suggested. IMPRESSION: 1. No acute sonographic abnormality is identified. 2. Left larger than right hydroceles. 3. Scrotal wall thickening is suggested. ACT 112: Negative or not required by law. Electronically signed by: Karl Westbrook M.D. 07/24/2021 5:02 PM
[2021-07-24 17:05] LABS: Potassium 4.3 mmol/L (3.5-5.1)
--- NOTE | 2021-07-24 17:20 | XRay Report ---
SINGLE VIEW CHEST CLINICAL HISTORY: Lower extremity edema FINDINGS: An AP, portable, upright chest radiograph is compared to study dated 01/03/2019. The examin ation is degraded by portable technique and patient rotation. The heart is enlarged. The pulmonary va sculature is noncongested. Chronic interstitial thickening is similar to previous. There is chronic e levation of the right hemidiaphragm and bibasilar atelectasis. No airspace consolidation or large ple ural effusion is identified. No pneumothorax is seen. The skeletal structures are osteopenic. There a re healed left-sided rib fractures. IMPRESSION: Cardiomegaly with no acute cardiopulmonary abnormality identified. ACT 112: Negative or not required by law. Electronically signed by: Karl Westbrook M.D. 07/24/2021 5:18 PM
--- NOTE | 2021-07-24 17:36 | History & Physical Report ---
Date of Service July 24, 2021 Assessment & Plan (1) Cellulitis of left leg: Plan: Comes in with worsening erythema of the left leg along with open wound in the posterior left leg Unkempt and has inability caring for his wound on his own due to morbid obesity and debility No fevers, no leukocytosis, no evidence of sepsis With scrotal cellulitis as well with open wounds -Bring in on observation for IV antibiotics and further observation of cellulitis -Start IV Zosyn and daptomycin for gram-negative and gram-positive coverage given history of diabetes, prior hospitalization -Check MRSA swab and consider discontinuation of daptomycin if negative -Follow erythema of scrotum and left leg clinically -Wound care consult placed -Follow blood cultures -Follow CBC, CMP, CRP in the morning (2) Pressure ulcer of left leg: Plan: Offload pressure, wound care Would benefit from wound care center or home visiting nurse after discharge (3) Cellulitis of scrotum: Plan: Continue antibiotics as above No evidence of torsion or epididymitis on ultrasound No evidence of Kacie's gangrene (4) Chronic diastolic CHF (congestive heart failure): Plan: With volume overload-clearly hypervolemic with edema Give IV Lasix 40 mg x 1 now, follow renal function in the morning and redose either IV Lasix or restart home p.o. Lasix tomorrow Continue blood pressure control with home diltiazem, metoprolol (5) Diarrhea: Plan: Ongoing for 4 to 5 months. Reports anywhere from 1-3 loose stools per day, nonbloody Was hospitalized in 03/2021 for this and treated for E. coli diarrhea with Cipro Was recently retreated with another week of Cipro empirically by PCP Has not had a colonoscopy in many many years Repeat stool PCR now If stool PCR negative, can give Imodium as needed Has follow-up appointment planned with [facility] in [place] in the near future (6) Elevated INR: Plan: On anticoagulation with Coumadin for history of atrial fibrillation and DVT INR 5.7 on arrival. He has been taking antibiotics recently and has not been checking his INR due to not leaving his home. Hold Coumadin No need for vitamin K reversal as he is not bleeding from anywhere Follow INR in the morning (7) RANDY on CPAP: Plan: Continue CPAP (8) Chronic venous insufficiency: Plan: Elevate legs when possible Needs weight loss (9) Anemia: Plan: Normocytic anemia with hemoglobin of 12, stable from previous Likely due to chronic kidney disease Check iron studies, B12, folate, TSH in the morning (10) Atrial fibrillation: Plan: Rate controlled Continue metoprolol, diltiazem Coumadin on hold for elevated INR No need for telemetry monitoring (11) CKD (chronic kidney disease), stage III: Plan: Creatinine baseline around 1.8-2.0 Creatinine is slightly below baseline at 1.7 Giving IV diuretics as above Follow BMP Avoid nephrotoxins Renally dose medications when appropriate (12) History of Abhijit-en-Y gastric bypass: Plan: With a history of such in 2004 with complication of perforated bowel requiring recurrent surgery Follows with [facility] surgery (13) Morbid obesity with BMI of 50.0-59.9, adult: Plan: BMI 51.7 He reports he previously weighed 540 pounds prior to his gastric bypass surgery Continued weight loss would be prudent (14) Type 2 diabetes mellitus: Plan: Most recent hemoglobin A1c 6.1% in 03/2021, well controlled Hold home glimepiride Give NovoLog sliding scale Check hemoglobin A1c in the morning Plan: DVT prophylaxis-anticoagulated with Coumadin Disposition-bring in on observation to medical/surgical unit. Did not meet criteria for inpatient admission at this time but suspect he will be here at least 2 midnights to follow blood cultures and make sure that cellulitis is improving and to get proper wound care History of Present Illness Chief Complaint: Leg wound Primary Care Provider: Wanda Lantigua PA-C This patient is a 65-year-old male with a history of morbid obesity, atrial fibrillation on Coumadin, RANDY, hyperlipidemia, HTN, chronic venous insufficiency, HFpEF, recurrent DVT, DM2, CKD stage III, who presents to the ER at the encouragement of his cousin who came to visit him today and noticed his leg to look infected. He reports he has had some increased swelling and redness over the last few days to week at home. [place] is quite sedentary [place] He sits around most of the day and his leg does rest against the foot rest of the recliner. He has been trying to put salve on the wound using a stick because he cannot reach his leg. He denies any fevers or chills but says he always feels cold. He denies any pain in the leg but says he cannot feel much down that way anyway. He avoids going to the doctor is much as he can he states. He has not had his INR checked in a month and it was elevated in the ER at 5.6. No chest pains or shortness of breath, no abdominal pains. He has been dealing with diarrhea for the last 3 to 4 months since his last hospitalization. No nausea or vomiting. Vital signs in the ER were normal and he was afebrile. Laboratory values significant only for the elevated INR, mild chronic normocytic anemia, and a creatinine of 1.7 which is around his baseline. He will be admitted for treatment of left leg and scrotal cellulitis. There is no evidence of sepsis, however he is very unkempt and has great difficulty taking care of himself properly at home. Allergies Allergy/AdvReac Type Severity Reaction Status Date / Time No Known Allergies Allergy Verified 07/24/21 15:24 Home Medications Medication Instructions Recorded Confirmed Type ascorbic acid (vitamin C) 500 mg 500 mg PO DAILY 01/03/19 07/24/21 History chewable tablet (Vitamin C) calcium 650 mg-vitamin D3 12.5 1 tab PO DAILY 01/03/19 07/24/21 History mcg-vitamin K 40 mcg chewable tablet (Viactiv) cholecalciferol (vitamin D3) 10 400 unit PO DAILY 01/03/19 07/24/21 History mcg (400 unit) chewable tablet (Vitamin D3) fexofenadine 180 mg tablet 180 mg PO DAILY 01/03/19 07/24/21 History (Anju Allergy) pediatric multivitamin no.49 1 tab PO DAILY 01/03/19 07/24/21 History (Flintstones Gummies) aspirin 81 mg tablet,delayed 81 mg PO QAM #30 tab 02/26/19 07/24/21 Rx release (Ecotrin Low Strength) diltiazem HCl 120 mg 120 mg PO DAILY #30 cap 01/11/21 07/24/21 Rx capsule,extended release 12 hr warfarin 7.5 mg tablet 7.5 mg PO .COMPLEX #30 tab 02/10/21 07/24/21 Rx atorvastatin 20 mg tablet 20 mg PO DAILY #30 tab 06/07/21 07/24/21 Rx furosemide 20 mg tablet 20 - 40 mg PO DAILY #180 tab 06/22/21 07/24/21 Rx glimepiride 2 mg tablet 2 mg PO DAILY #90 tab 06/22/21 07/24/21 Rx metoprolol tartrate 50 mg tablet 50 mg PO BID #180 tab 06/27/21 07/24/21 Rx potassium chloride 10 mEq 10 meq PO DAILY #90 tab 07/20/21 07/24/21 Rx tablet,extended release oxybutynin chloride 10 mg 10 mg PO BID 07/24/21 07/24/21 History tablet,extended release 24 hr Past Med/Surg History Medical History Anemia Atrial fibrillation Bilateral hydrocele CHF (congestive heart failure) CKD (chronic kidney disease), stage III Kidney stones Morbid obesity with BMI of 50.0-59.9, adult New onset atrial fibrillation RANDY on CPAP Pyelonephritis of left kidney Type 2 diabetes mellitus Urinary pain Surgical History History of nephrostomy History of Abhijit-en-Y gastric bypass Family History Other Family history non-contributory Social History Smoking Status: Never smoker Second Hand Exposure: No; Hx Alcohol Use: No Hx Substance Use: No Preferred Language: Turkish Communication Ability: Effective Antisqueak Worker Required: No Beliefs That Will Affect Care: None marital status: Single Current Living Situation: Alone current occupational status: employed How many Children do You have: 0 Feels Safe at Home: Yes Assistive Devices: Glasses Review of Systems Review of Systems: All systems reviewed & are unremarkable except as noted in HPI & below Physical Exam Constitutional: WD/WN, vitals as above + morbidly obese Eyes: PERRL, conjunctivae normal, anicteric sclerae ENMT: Ears: no hearing impairment Very poor dentition, missing teeth Neck: trachea midline, no thyromegaly Respiratory: normal respiratory effort, lungs clear to auscultation Cardiovascular: Rate/Rhythm: regular rate and + irregularly irregular Heart Sounds: no murmur Vessels: dorsalis pedis pulses present Extremities: + edema (3+ edema bilateral lower extremities) Chest (Breasts): Chest: normal inspection of chest Gastrointestinal (Abdomen): Inspection/Auscultation: normal bowel sounds; + abdomen abnormal to inspection (Large surgical scar right mid abdomen) and abdomen not distended Percussion/Palpation: abdomen soft and + hernia (Large ventral hernia reducible); abdomen nontender Musculoskeletal: Extremities: no cyanosis and no clubbing Skin: Left leg with circumferential erythema from ankle to proximal tibia Open superficial wound approximately 5 cm posterior left leg with surrounding erythema Scrotal erythema with a few open bleeding wounds Some intertrigo erythematous rash under pannus bilaterally and groin Very dry skin and chronic venous stasis changes Thickened yellow toenails with some scabs on toes Neurologic: moves all extremities and awake; no focal motor deficits Psychiatric: A+Ox3, euthymic affect Genitourinary: + penis abnormality (Buried penis), + scrotum abnormality (Er ythema, swelling, a few small open wounds with bleeding) and + hydrocele Results & Data Results & Data ([facility]) Vital Signs (Past 12 Hours) Vital Signs Temp Pulse Pulse Resp BP BP Pulse Ox 07/24/21 17:00 93 H 19 139/87 96 07/24/21 15:38 87 20 166/89 H 98 07/24/21 14:33 36.5 C 84 20 144/73 H 90 Laboratory Results 07/24/21 07/24/21 07/24/21 Range/Units 17:21 15:56 15:56 WBC (4.8-10.8) K/uL RBC (4.7-6.1) M/uL Hgb (14.0-18.0) g/dL Hct (42-52) % MCV (80-100) fL MCH (25-34) pg MCHC (32-36) g/dL RDW Std Deviation (36.4-46.3) fL RDW Coeff of Evan (11.5-14.5) % Plt Count (130-400) K/uL MPV (7.4-10.4) fL Immature Gran % (Auto) % Neut % (Auto) % Lymph % (Auto) % Harper % (Auto) % Eos % (Auto) % Baso % (Auto) % Neut # (Auto) (1.4-6.5) K/uL Lymph # (Auto) (1.2-3.4) K/uL Harper # (Auto) (0.11-0.59) K/uL Eos # (Auto) (0-0.5) K/uL Baso # (Auto) (0-0.2) K/uL Immature Gran # (Auto) (0.00-0.02) K/uL PT (9.0-12.0) Seconds INR (0.9-1.1) Sodium 139 Potassium 4.3 Chloride 106 Carbon Dioxide 27 Anion Gap 6 BUN 26 H Creatinine 1.74 H Est Cr Clr Drug Dosing 71.1 Est GFR ( Amer) 47.3 Est GFR (Non-Af Amer) 40.8 BUN/Creatinine Ratio 14.9 Glucose 98 Calcium 8.5 Magnesium 2.0 Total Bilirubin 0.6 AST 17 ALT 12 Alkaline Phosphatase 68 B-Natriuretic Peptide 123 H (0-100) pg/ml Total Protein 7.2 Albumin 3.0 L Globulin 4.2 H Albumin/Globulin Ratio 0.7 L SARS-CoV-2, RNA, NAAT NEGATIVE (NEGATIVE) 07/24/21 07/24/21 07/24/21 Range/Units 15:10 15:10 15:10 WBC 7.98 (4.8-10.8) K/uL RBC 4.16 L (4.7-6.1) M/uL Hgb 12.0 L (14.0-18.0) g/dL Hct 37.2 L (42-52) % MCV 89.4 (80-100) fL MCH 28.8 (25-34) pg MCHC 32.3 (32-36) g/dL RDW Std Deviation 50.8 H (36.4-46.3) fL RDW Coeff of Evan 15.6 H (11.5-14.5) % Plt Count 344 (130-400) K/uL MPV 9.7 (7.4-10.4) fL Immature Gran % (Auto) 1.0 % Neut % (Auto) 76.7 % Lymph % (Auto) 10.3 % Harper % (Auto) 7.3 % Eos % (Auto) 4.3 % Baso % (Auto) 0.4 % Neut # (Auto) 6.13 (1.4-6.5) K/uL Lymph # (Auto) 0.82 L (1.2-3.4) K/uL Harper # (Auto) 0.58 (0.11-0.59) K/uL Eos # (Auto) 0.34 (0-0.5) K/uL Baso # (Auto) 0.03 (0-0.2) K/uL Immature Gran # (Auto) 0.08 H (0.00-0.02) K/uL PT 55.0 H (9.0-12.0) Seconds INR 5.7 H* (0.9-1.1) Sodium Cancelled Potassium Cancelled Chloride Cancelled Carbon Dioxide Cancelled Anion Gap Cancelled BUN Cancelled Creatinine Cancelled Est Cr Clr Drug Dosing Cancelled Est GFR ( Amer) Cancelled Est GFR (Non-Af Amer) Cancelled BUN/Creatinine Ratio Cancelled Glucose Cancelled Calcium Cancelled Magnesium Cancelled Total Bilirubin Cancelled AST Cancelled ALT Cancelled Alkaline Phosphatase Cancelled B-Natriuretic Peptide (0-100) pg/ml Total Protein Cancelled Albumin Cancelled Globulin Cancelled Albumin/Globulin Ratio Cancelled SARS-CoV-2, RNA, NAAT (NEGATIVE) Diagnostic Findings Scrotum Ultrasound 07/24/21 15:09 ULTRASOUND TESTES AND SCROTUM CLINICAL HISTORY: Scrotal pain, swelling, and erythema. COMPARISON STUDY: No priors. TECHNIQUE: Real-time, grayscale, and color Doppler sonography of the testes and scrotum is performed. Images are reviewed in the transverse and longitudinal planes. FINDINGS: The testes are normal in size and heterogeneous in echotexture. The right testis measures 4.7 x 3.3 x 3.5 cm and the left testis measures 4.6 x 3.6 x 3.2 cm. No intratesticular mass is seen. Testicular blood flow is normal and symmetric. Normal Doppler waveforms are identified in both testes. The epididymal heads are normal in appearance. There are small right and moderate left-sided hydroceles. No varicocele is identified. Scrotal wall thickening is suggested. IMPRESSION: 1. No acute sonographic abnormality is identified. 2. Left larger than right hydroceles. 3. Scrotal wall thickening is suggested. ACT 112: Negative or not required by law. Electronically signed by: Karl Westbrook M.D. 07/24/2021 5:02 PM Venous Doppler Study 07/24/21 15:09 ULTRASOUND LEFT LOWER EXTREMITY VENOUS CLINICAL HISTORY: Lower extremity wound and erythema. Swelling. COMPARISON STUDY: Bilateral lower extremity venous ultrasound dated 12/03/2016 TECHNIQUE: Real-time, grayscale, and color Doppler sonography of the deep veins of the left lower extremity was performed from the inguinal crease to the calf. Compression and augmentation were utilized. The examination is degraded by large body habitus. FINDINGS: There is no sonographic evidence of deep venous thrombosis identified in the left lower extremity. The common femoral and superficial femoral veins are patent and normally compressible. The left popliteal vein was not visualized. The greater saphenous vein and the profunda femoris vein at the junction with the common femoral vein are clear. The visualized calf veins are patent. IMPRESSION: There is no sonographic evidence of deep venous thrombosis identified in the left lower extremity noting nonvisualization of the popliteal vein. ACT 112: Negative or not required by law. Electronically signed by: Karl Westbrook M.D. 07/24/2021 5:00 PM Chest X-Ray 07/24/21 15:19 SINGLE VIEW CHEST CLINICAL HISTORY: Lower extremity edema FINDINGS: An AP, portable, upright chest radiograph is compared to study dated 01/03/2019. The examination is degraded by portable technique and patient rotation. The heart is enlarged. The pulmonary vasculature is noncongested. Chronic interstitial thickening is similar to previous. There is chronic elevation of the right hemidiaphragm and bibasilar atelectasis. No airspace consolidation or large pleural effusion is identified. No pneumothorax is seen. The skeletal structures are osteopenic. There are healed left-sided rib fr actures. IMPRESSION: Cardiomegaly with no acute cardiopulmonary abnormality identified. ACT 112: Negative or not required by law. Electronically signed by: Karl Westbrook M.D. 07/24/2021 5:18 PM ECG Additional Comments: No ECG performed Code Status & VTE Plan Code Status DNR/DNI VTE Prophylaxis Plan VTE Prophylaxis will be ordered: Yes PG Care Time/CCT Total # of Minutes Spent Total Time Spent with Patient: Total time spent is greater than 50% in coordination of care (as documented) at patient's floor/unit and/or counseling patient: Coding Level of Care Code INT OBSERVATION CARE 70M LVL 3 Diagnoses Pressure ulcer of left leg L89.899 Cellulitis of left leg L03.116 RANDY on CPAP G47.33; Z99.89 Diarrhea R19.7 Diarrhea type: unspecified type Chronic venous insufficiency I87.2 Anemia D64.9 Anemia type: unspecified type Atrial fibrillation I48.91 Chronic diastolic CHF (congestive heart failure) I50.32 CKD (chronic kidney disease), stage III N18.3 Elevated INR R79.1 History of Abhijit-en-Y gastric bypass Z98.84 Morbid obesity with BMI of 50.0-59.9, adult E66.01; Z68.43 Type 2 diabetes mellitus E11.9 Chronic kidney disease stage: stage 3 (moderate) Diabetes mellitus complication detail: with chronic kidney disease Diabetes mellitus complication status: with kidney complications Diabetes mellitus chcf insulin use: without chcf use Cellulitis of scrotum N49.2 (1) Type 2 diabetes mellitus Chronic kidney disease stage: stage 3 (moderate) Diabetes mellitus complication detail: with chronic kidney disease Diabetes mellitus complication status: with kidney complications Diabetes mellitus chcf insulin use: without emt intermediate use (2) Anemia Anemia type: unspecified type Qualified Code(s): D64.9 - Anemia, unspecified (3) Diarrhea Diarrhea type: unspecified type Qualified Code(s): R19.7 - Diarrhea, unspecified
[2021-07-24] MEDS ORDERED: DAPTOmycin 475 MG in SYRINGE 0 ML IV ONE (17:44)
[2021-07-24] MEDS ORDERED: PIPERACILLIN/TAZOBACTAM 4.5 GM/120 ML BAG IV ONE (17:44)
[2021-07-24] MEDS ORDERED: FUROSEMIDE 40 MG/4 ML VIAL IV ONE (18:28)
[2021-07-24] MEDS ORDERED: GLUCAGON FOR INJ 1 MG VIAL SQ PRN (19:48)
[2021-07-24] MEDS ORDERED: CARBOHYDRATES FOR HYPOGLYCEMIA PO PRN (19:48)
[2021-07-24] MEDS ORDERED: GLUCOSE 10 TABS/TUBE PO PRN (19:48)
[2021-07-24] MEDS ORDERED: DEXTROSE 50% 50 ML SYRINGE IV PRN (19:48)
[2021-07-24] MEDS ORDERED: GLUCOSE 40% GEL 15 GM TUBE PO PRN (19:48)
[2021-07-24] MEDS ORDERED: ACETAMINOPHEN 325 MG TAB PO PRN (19:48)
[2021-07-24] MEDS ORDERED: ONDANSETRON INJ 2 MG/ML 2 ML VIAL IV PRN (19:48)
[2021-07-24] MEDS ORDERED: PIPERACILLIN/TAZOBACTAM 3.375 GM in DEXTROSE 5% 100 ML IV SCH (19:48)
[2021-07-24] MEDS: INSULIN ASPART PER UNIT SC SCH (21:27)
[2021-07-24] MEDS: OXYBUTYNIN CHLORIDE XL 5 MG TABCR PO SCH (21:31)
[2021-07-24] MEDS: METOPROLOL TARTRATE 50 MG TAB PO SCH (21:31)
[2021-07-25] MEDS: PIPERACILLIN/TAZOBACTAM 4.5 GM in DEXTROSE 5% 100 ML IV SCH ×3 (00:14→16:20)
[2021-07-25 01:06] LABS: Adenovirus F 40/41 PCR Not Detected (NotDetected); Astrovirus PCR Not Detected (NotDetected); Campylobacter PCR Not Detected (NotDetected); Clostridium diff Toxin A/B PCR Not Detected (NotDetected); Cryptosporidium PCR Not Detected (NotDetected); Cyclospora cayetanensis PCR Not Detected (NotDetected); Entamoeba histolytica PCR Not Detected (NotDetected); Enteroaggregative E.coli(EAEC) Not Detected (NotDetected); Enteropathogenic E.coli (EPEC) Not Detected (NotDetected); Enterotoxigenic E.coli (ETEC) Not Detected (NotDetected); Giardia lamblia PCR Not Detected (NotDetected); Norovirus GI/GII PCR Not Detected (NotDetected); Plesiomonas shigelloides PCR Not Detected (NotDetected); Rotavirus A PCR Not Detected (NotDetected); Salmonella PCR Not Detected (NotDetected); Sapovirus PCR Not Detected (NotDetected); Shiga-like Toxin E.coli (STEC) Not Detected (NotDetected); Shigella/Enteroinvasive E.coli Not Detected (NotDetected); Vibrio cholerae PCR Not Detected (NotDetected); Vibrio species PCR Not Detected (NotDetected); Yersinia enterocolitica PCR Not Detected (NotDetected)
[2021-07-25 06:56] LABS: Basophils # (auto) 0.04 K/uL (0-0.2); Basophils % (auto) 0.6 %; Eosinophils # (auto) 0.28 K/uL (0-0.5); Hematocrit (blood only) 34.8 % (42-52); Hemoglobin 11.1 g/dL (14.0-18.0); Immature Granulocytes # (auto) 0.07 K/uL (0.00-0.02); Lymphocytes # (auto) 0.84 K/uL (1.2-3.4); Lymphocytes % (auto) 11.9 %; Mean Corpuscular Hemoglobin 28.2 pg (25-34); Mean Corpuscular Hgb Conc 31.9 g/dL (32-36); Mean Corpuscular Volume 88.3 fL (80-100); Mean Platelet Volume 8.6 fL (7.4-10.4); Monocytes # (auto) 0.73 K/uL (0.11-0.59); Monocytes % (auto) 10.3 %; Neutrophils % (auto) 72.2 %; Platelet Count 310 K/uL (130-400); RDW Coefficient of Variation 15.4 % (11.5-14.5); RDW Standard Deviation 49.7 fL (36.4-46.3); Red Blood Count 3.94 M/uL (4.7-6.1); White Blood Count 7.06 K/uL (4.8-10.8)
[2021-07-25 07:15] LABS: INR 5.2 (0.9-1.1); Prothrombin Time 50.3 Seconds (9.0-12.0)
[2021-07-25 07:34] LABS: Albumin Globulin Ratio 0.8 (0.9-2); Albumin Level 2.9 gm/dl (3.4-5.0); BUN Creatinine Ratio 14.2 (10-20); Bilirubin,Total 0.5 mg/dl (0.2-1.0); C Reactive Protein 6.71 mg/dl (0-0.5); Calcium 8.3 mg/dl (8.5-10.1); Est GFR (African American) 54.4 ml/min; Est GFR (Non-African American) 46.9 ml/min; Globulin 3.8 gm/dl (2.5-4.0); Magnesium 1.6 mg/dl (1.7-2.4); Potassium 3.3 mmol/L (3.5-5.1); Total Protein 6.7 gm/dl (6.0-8.3)
[2021-07-25 07:37] LABS: Ferritin 136.8 ng/ml (8-388)
[2021-07-25 07:45] LABS: Iron 37 mcg/dl (35-175); Total Iron Binding Cap Calc 178 mcg/dl (250-450); Transferrin (FE) Percent Satur 21 % (20-50); Unsaturated Iron Binding Cap 141 mcg/dl (155-355)
[2021-07-25 08:08] LABS: Folate (Folic Acid) 13.12 ng/ml (>5.38)
[2021-07-25 08:09] LABS: Vitamin B12 > 1500 pg/ml (180-914)
[2021-07-25] MEDS: ASCORBIC ACID 500 MG TAB PO SCH (09:31)
[2021-07-25] MEDS: ASPIRIN 81 MG ECTAB PO SCH (09:31)
[2021-07-25] MEDS: CHOLECALCIFEROL 400 UNITS 10 MCG TAB PO SCH (09:31)
[2021-07-25] MEDS: dilTIAZem ER 120 MG CAPCR PO SCH (09:32)
[2021-07-25] MEDS: FEXOFENADINE HCL 180 MG TAB PO SCH (09:33)
[2021-07-25] MEDS: METOPROLOL TARTRATE 50 MG TAB PO SCH ×2 (09:33→20:46)
[2021-07-25] MEDS: OXYBUTYNIN CHLORIDE XL 5 MG TABCR PO SCH ×2 (09:33→20:43)
[2021-07-25] MEDS: INSULIN ASPART PER UNIT SC SCH ×4 (09:38→20:50)
--- NOTE | 2021-07-25 14:46 | Hospitalist Progress Note ---
Date of Service July 25, 2021 Assessment & Plan (1) Stasis ulcer of lower extremity: Plan: No evidence of sepsis, de-escalate antibiotic treatment, stop daptomycin, stop Zosyn, start on Vanco, wound culture Unkempt and has inability caring for his wound on his own due to morbid obesity and debility Blood culture CBC BMP tomorrow Wound care consult (2) Cellulitis of left leg: Plan: The plan as mentioned (3) Cellulitis of scrotum: Plan: Continue antibiotics as above No evidence of torsion or epididymitis on ultrasound No evidence of Kacie's gangrene (4) Chronic diastolic CHF (congestive heart failure): Plan: As per admission note patient with volume overload Start Lasix 40 mg daily intravenous (5) Diarrhea: Plan: Ongoing for 4 to 5 months. Reports anywhere from 1-3 loose stools per day, nonbloody Was hospitalized in 03/2021 for this and treated for E. coli diarrhea with Cipro No electrolyte abnormality, started on Lomotil Has follow-up appointment planned with [facility] in [place] in the near future Started on Imodium (6) Elevated INR: Plan: On anticoagulation with Coumadin for history of atrial fibrillation and DVT INR 5.7 on arrival. He has been taking antibiotics recently and has not been checking his INR due to not leaving his home. Hold Coumadin No need for vitamin K reversal as he is not bleeding from anywhere Follow INR in the morning (7) RANDY on CPAP: Plan: Continue CPAP (8) Chronic venous insufficiency: Plan: Elevate legs when possible Needs weight loss (9) Anemia: Plan: Normocytic anemia with hemoglobin of 12, stable from previous Likely due to chronic kidney disease Check iron studies, B12, folate, TSH in the morning (10) Atrial fibrillation: Plan: Rate controlled Continue metoprolol, diltiazem Coumadin on hold for elevated INR No need for telemetry monitoring (11) CKD (chronic kidney disease), stage III: Plan: Creatinine baseline around 1.8-2.0 Creatinine is slightly below baseline at 1.7 Giving IV diuretics as above Follow BMP Avoid nephrotoxins Renally dose medications when appropriate (12) History of Abhijit-en-Y gastric bypass: Plan: With a history of such in 2004 with complication of perforated bowel requiring recurrent surgery Follows with [facility] surgery (13) Morbid obesity with BMI of 50.0-59.9, adult: Plan: BMI 51.7 He reports he previously weighed 540 pounds prior to his gastric bypass surgery Continued weight loss would be prudent (14) Type 2 diabetes mellitus: Plan: Most recent hemoglobin A1c 6.1% in 03/2021, well controlled Hold home glimepiride Give NovoLog sliding scale Check hemoglobin A1c in the morning Plan: DVT prophylaxis-anticoagulated with Coumadin Disposition-bring in on observation to medical/surgical unit. Did not meet criteria for inpatient admission at this time but suspect he will be here at least 2 midnights to follow blood cultures and make sure that cellulitis is improving and to get proper wound care Admission and Anticipated Discharge Date Admission Date: July 24, 2021 Subjective Feeling better today Review of Systems Review of Systems: General: No malaise no weakness Neck: No tenderness no pain HEENT: No eye discharge no ear discharge Chest: No chest pain, no palpitation GI: Not distended, no nausea no vomiting Extremities: Open wound with discharge Neurology: No headache no weakness Psychiatric: No depression no anxiety Physical Exam Constitutional: WD/WN, vitals as above + morbidly obese Eyes: PERRL, conjunctivae normal, anicteric sclerae ENMT: Ears: no hearing impairment Neck: trachea midline, no thyromegaly Respiratory: normal respiratory effort, lungs clear to auscultation Cardiovascular: Rate/Rhythm: regular rate and + irregularly irregular Heart Sounds: no murmur Vessels: dorsalis pedis pulses present Extremities: + edema (3+ edema bilateral lower extremities) Chest (Breasts): Chest: normal inspection of chest Gastrointestinal (Abdomen): Inspection/Auscultation: normal bowel sounds; + abdomen abnormal to inspection (Large surgical scar right mid abdomen) and abdomen not distended Percussion/Palpation: abdomen soft and + hernia (Large ventral hernia reducible); abdomen nontender Musculoskeletal: Extremities: no cyanosis and no clubbing Neurologic: moves all extremities and awake; no focal motor deficits Psychiatric: A+Ox3, euthymic affect Genitourinary: + penis abnormality (Buried penis), + scrotum abnormality (Erythema, swelling, a few small open wounds with bleeding) and + hydrocele Results & Data Results & Data ([facility]) Vital Signs (Past 12 Hours) Vital Signs Temp Pulse Resp BP Pulse Ox 07/25/21 09:30 98 H 113/64 07/25/21 07:29 36.8 C 93 H 16 107/67 92 PG Care Time/CCT Total # of Minutes Spent Total Time Spent with Patient: Total time spent is greater than 50% in coordination of care (as documented) at patient's floor/unit and/or counseling patient: Coding Level of Care Code 26697 Subseq Hosp Care Lvl 3 Diagnoses Cellulitis of left leg L03.116 Cellulitis of scrotum N49.2 Chronic diastolic CHF (congestive heart failure) I50.32 Diarrhea R19.7 Diarrhea type: unspecified type Elevated INR R79.1 RANDY on CPAP G47.33; Z99.89 Chronic venous insufficiency I87.2 Anemia D64.9 Anemia type: unspecified type Atrial fibrillation I48.91 CKD (chronic kidney disease), stage III N18.3 History of Abhijit-en-Y gastric bypass Z98.84 Morbid obesity with BMI of 50.0-59.9, adult E66.01; Z68.43 Type 2 diabetes mellitus E11.9 Chronic kidney disease stage: stage 3 (moderate) Diabetes mellitus complication detail: with chronic kidney disease Diabetes mellitus complication status: with kidney complications Diabetes mellitus rn long term care insulin use: without intermediate use Stasis ulcer of lower extremity I83.009; L97.909 (1) Type 2 diabetes mellitus Chronic kidney disease stage: stage 3 (moderate) Diabetes mellitus complication detail: with chronic kidney disease Diabetes mellitus complication status: with kidney complications Diabetes mellitus intermediate insulin use: without rn long term care use (2) Anemia Anemia type: unspecified type Qualified Code(s): D64.9 - Anemia, unspecified (3) Diarrhea Diarrhea type: unspecified type Qualified Code(s): R19.7 - Diarrhea, unspecified
[2021-07-25 15:00] LABS: Estimated Average Glucose 128 mg/dl; Hemoglobin A1C 6.1 % (4.5-5.6)
[2021-07-25] MEDS: DAPTOmycin 475 MG in SYRINGE 0 ML IV SCH (17:59)
[2021-07-25] MEDS ORDERED: VANCOMYCIN CONSULT ACTIVE PRN (19:01)
[2021-07-25] MEDS ORDERED: DIPHENOXYLATE/ATROPINE 2.5/0.025MG TAB PO PRN (19:13)
[2021-07-25] MEDS ORDERED: VANCOMYCIN HCL 1,500 MG in SODIUM CHLORIDE 0.9% 250 ML IV SCH (19:15)
[2021-07-25] MEDS ORDERED: ENOXAPARIN 100 MG/1ML SYR SQ SCH (20:00)
[2021-07-25] MEDS: MICONAZOLE NITRATE POWDER 43 GM EXT SCH (20:43)
[2021-07-25] MEDS ORDERED: POTASSIUM CHLORIDE CRTAB 20 MEQ TABCR PO STA (21:32)
[2021-07-25] MEDS: FUROSEMIDE 40 MG/4 ML VIAL IV SCH (22:37)
[2021-07-26 07:11] LABS: Basophils # (auto) 0.03 K/uL (0-0.2); Basophils % (auto) 0.4 %; Eosinophils # (auto) 0.32 K/uL (0-0.5); Eosinophils % (auto) 4.6 %; Hemoglobin 10.6 g/dL (14.0-18.0); Immature Granulocytes # (auto) 0.06 K/uL (0.00-0.02); Immature Granulocytes % (auto) 0.9 %; Lymphocytes # (auto) 0.94 K/uL (1.2-3.4); Lymphocytes % (auto) 13.5 %; Mean Corpuscular Hemoglobin 27.5 pg (25-34); Mean Corpuscular Hgb Conc 31.2 g/dL (32-36); Mean Corpuscular Volume 88.1 fL (80-100); Mean Platelet Volume 8.7 fL (7.4-10.4); Monocytes # (auto) 0.52 K/uL (0.11-0.59); Monocytes % (auto) 7.5 %; Neutrophils # (auto) 5.07 K/uL (1.4-6.5); Neutrophils % (auto) 73.1 %; Platelet Count 307 K/uL (130-400); RDW Coefficient of Variation 15.6 % (11.5-14.5); RDW Standard Deviation 50.2 fL (36.4-46.3); Red Blood Count 3.86 M/uL (4.7-6.1); White Blood Count 6.94 K/uL (4.8-10.8)
[2021-07-26 07:16] LABS: INR 4.2 (0.9-1.1); Prothrombin Time 41.7 Seconds (9.0-12.0)
[2021-07-26 07:32] LABS: BUN Creatinine Ratio 13.4 (10-20); Calcium 8.4 mg/dl (8.5-10.1); Creatinine Clr Calc Pharmacy 87.3 ml/min; Est GFR (African American) 60.5 ml/min; Est GFR (Non-African American) 52.2 ml/min; Potassium 3.5 mmol/L (3.5-5.1)
[2021-07-26] MEDS: METOPROLOL TARTRATE 50 MG TAB PO SCH ×2 (08:37→21:15)
[2021-07-26] MEDS: dilTIAZem ER 120 MG CAPCR PO SCH (08:37)
[2021-07-26] MEDS: OXYBUTYNIN CHLORIDE XL 5 MG TABCR PO SCH ×2 (08:38→21:15)
[2021-07-26] MEDS: CHOLECALCIFEROL 400 UNITS 10 MCG TAB PO SCH (08:38)
[2021-07-26] MEDS: ASCORBIC ACID 500 MG TAB PO SCH (08:38)
[2021-07-26] MEDS: FEXOFENADINE HCL 180 MG TAB PO SCH (08:38)
[2021-07-26] MEDS: MICONAZOLE NITRATE POWDER 43 GM EXT SCH ×2 (08:39→21:25)
[2021-07-26] MEDS: INSULIN ASPART PER UNIT SC SCH ×4 (09:08→21:18)
[2021-07-26] MEDS: FUROSEMIDE 40 MG/4 ML VIAL IV SCH (10:31)
[2021-07-26] MEDS: ASPIRIN 81 MG ECTAB PO SCH (10:39)
[2021-07-26] MEDS: DAPTOmycin 475 MG in SYRINGE 0 ML IV SCH (18:08)
--- NOTE | 2021-07-26 20:08 | Hospitalist Progress Note ---
Date of Service July 26, 2021 Assessment & Plan (1) Stasis ulcer of lower extremity: Plan: No evidence of sepsis, significant improvement, de-escalate treatment, stop daptomycin, start oral Zyvox, wounds look significantly better, wound culture is not diagnostic Unkempt and has inability caring for his wound on his own due to morbid obesity and debility Consulted with wound care recommend dressing every other day, patient lives by himself in a trailer, due to obesity patient cannot reach his wound therefore he needs to help, family is not able to provide help, therefore discharge could be challenging, discussed with case coordinator in details, order for PT OT (2) Cellulitis of left leg: Plan: The plan as mentioned (3) Cellulitis of scrotum: Plan: Continue antibiotics as above No evidence of torsion or epididymitis on ultrasound No evidence of Kacie's gangrene Almost resolved (4) Chronic diastolic CHF (congestive heart failure): Plan: As per admission note patient with volume overload Start Lasix 40 mg daily intravenous (5) Diarrhea: Plan: Ongoing for 4 to 5 months. Reports anywhere from 1-3 loose stools per day, nonbloody Was hospitalized in 03/2021 for this and treated for E. coli diarrhea with Cipro No electrolyte abnormality, started on Lomotil Has follow-up appointment planned with [facility] in [place] in the near future Started on Imodium (6) Elevated INR: Plan: On anticoagulation with Coumadin for history of atrial fibrillation and DVT INR 5.7 on arrival. He has been taking antibiotics recently and has not been checking his INR due to not leaving his home. Hold Coumadin No need for vitamin K reversal as he is not bleeding from anywhere Follow INR in the morning (7) RANDY on CPAP: Plan: Continue CPAP (8) Chronic venous insufficiency: Plan: Elevate legs when possible Needs weight loss (9) Anemia: Plan: Normocytic anemia with hemoglobin of 12, stable from previous Likely due to chronic kidney disease Check iron studies, B12, folate, TSH in the morning (10) Atrial fibrillation: Plan: Rate controlled Continue metoprolol, diltiazem Coumadin on hold for elevated INR No need for telemetry monitoring (11) CKD (chronic kidney disease), stage III: Plan: Creatinine baseline around 1.8-2.0 Creatinine is slightly below baseline at 1.7 Giving IV diuretics as above Follow BMP Avoid nephrotoxins Renally dose medications when appropriate (12) History of Abhijit-en-Y gastric bypass: Plan: With a history of such in 2004 with complication of perforated bowel requiring recurrent surgery Follows with [facility] surgery (13) Morbid obesity with BMI of 50.0-59.9, adult: Plan: BMI 51.7 He reports he previously weighed 540 pounds prior to his gastric bypass surgery Continued weight loss would be prudent (14) Type 2 diabetes mellitus: Plan: Most recent hemoglobin A1c 6.1% in 03/2021, well controlled Hold home glimepiride Give NovoLog sliding scale Check hemoglobin A1c in the morning Plan: DVT prophylaxis-anticoagulated with Coumadin Disposition-bring in on observation to medical/surgical unit. Did not meet criteria for inpatient admission at this time but suspect he will be here at least 2 midnights to follow blood cultures and make sure that cellulitis is improving and to get proper wound care Admission and Anticipated Discharge Date Admission Date: July 25, 2021 Subjective Feeling better today Review of Systems Review of Systems: General: No malaise no weakness Neck: No tenderness no pain HEENT: No eye discharge no ear discharge Chest: No chest pain, no palpitation GI: Not distended, no nausea no vomiting Extremities: Open wound with discharge Neurology: No headache no weakness Psychiatric: No depression no anxiety Physical Exam Constitutional: WD/WN, vitals as above + morbidly obese Eyes: PERRL, conjunctivae normal, anicteric sclerae ENMT: Ears: no hearing impairment Neck: trachea midline, no thyromegaly Respiratory: normal respiratory effort, lungs clear to auscultation Cardiovascular: Rate/Rhythm: regular rate and + irregularly irregular Heart Sounds: no murmur Vessels: dorsalis pedis pulses present Extremities: + edema (3+ edema bilateral lower extremities) Chest (Breasts): Chest: normal inspection of chest Gastrointestinal (Abdomen): Inspection/Auscultation: normal bowel sounds; + abdomen abnormal to inspection (Large surgical scar right mid abdomen) and abdomen not distended Percussion/Palpation: abdomen soft and + hernia (Large ventral hernia reducible); abdomen nontender Musculoskeletal: Extremities: no cyanosis and no clubbing Neurologic: moves all extremities and awake; no focal motor deficits Psychiatric: A+Ox3, euthymic affect Genitourinary: + penis abnormality (Buried penis), + scrotum abnormality (Erythema, swelling, a few small open wounds with bleeding) and + hydrocele Results & Data Results & Data ([facility]) Vital Signs (Past 12 Hours) Vital Signs Temp Pulse Resp BP BP Pulse Ox 07/26/21 15:10 36.7 C 80 18 120/70 94 07/26/21 10:31 118/69 07/26/21 08:36 81 142/75 H 07/26/21 08:20 36.7 C 79 18 113/67 93 PG Care Time/CCT Total # of Minutes Spent Total Time Spent with Patient: Total time spent is greater than 50% in coordination of care (as documented) at patient's floor/unit and/or counseling patient: Coding Level of Care Code 41932 Subseq Hosp Care Lvl 3 Diagnoses Stasis ulcer of lower extremity I83.009; L97.909 Cellulitis of left leg L03.116 Cellulitis of scrotum N49.2 Chronic diastolic CHF (congestive heart failure) I50.32 Diarrhea R19.7 Diarrhea type: unspecified type Elevated INR R79.1 RANDY on CPAP G47.33; Z99.89 Chronic venous insufficiency I87.2 Anemia D64.9 Anemia type: unspecified type Atrial fibrillation I48.91 CKD (chronic kidney disease), stage III N18.3 History of Abhijit-en-Y gastric bypass Z98.84 Morbid obesity with BMI of 50.0-59.9, adult E66.01; Z68.43 Type 2 diabetes mellitus E11.9 Diabetes mellitus ad terminal makeup operator insulin use: without ad terminal makeup operator use Diabetes mellitus complication status: with kidney complications Diabetes mellitus complication detail: with chronic kidney disease Chronic kidney disease stage: stage 3 (moderate) (1) Diarrhea Diarrhea type: unspecified type Qualified Code(s): R19.7 - Diarrhea, unspecified (2) Anemia Anemia type: unspecified type Qualified Code(s): D64.9 - Anemia, unspecified (3) Type 2 diabetes mellitus Diabetes mellitus ad terminal makeup operator insulin use: without prison use Diabetes mellitus complication status: with kidney complications Diabetes mellitus complication detail: with chronic kidney disease Chronic kidney disease stage: stage 3 (moderate)
[2021-07-27 07:00] LABS: INR 2.7 (0.9-1.1); Prothrombin Time 27.2 Seconds (9.0-12.0)
[2021-07-27 07:10] LABS: Creatinine Clr Calc Pharmacy 87.3 ml/min; Est GFR (African American) 60.5 ml/min; Est GFR (Non-African American) 52.2 ml/min
[2021-07-27] MEDS: INSULIN ASPART PER UNIT SC SCH ×4 (08:55→23:04)
[2021-07-27] MEDS: LINEZOLID 600 MG TAB PO SCH ×2 (08:57→22:38)
[2021-07-27] MEDS: OXYBUTYNIN CHLORIDE XL 5 MG TABCR PO SCH ×2 (08:57→22:38)
[2021-07-27] MEDS: ASPIRIN 81 MG ECTAB PO SCH (08:57)
[2021-07-27] MEDS: CHOLECALCIFEROL 400 UNITS 10 MCG TAB PO SCH (08:57)
[2021-07-27] MEDS: FEXOFENADINE HCL 180 MG TAB PO SCH (08:57)
[2021-07-27] MEDS: METOPROLOL TARTRATE 50 MG TAB PO SCH ×2 (08:57→22:37)
[2021-07-27] MEDS: dilTIAZem ER 120 MG CAPCR PO SCH (08:58)
[2021-07-27] MEDS: FUROSEMIDE 40 MG/4 ML VIAL IV SCH (08:58)
[2021-07-27] MEDS: ASCORBIC ACID 500 MG TAB PO SCH (08:58)
[2021-07-27] MEDS: MICONAZOLE NITRATE POWDER 43 GM EXT SCH ×2 (09:06→22:40)
[2021-07-27] MEDS ORDERED: LOPERAMIDE HCL 2 MG CAP PO PRN (14:15)
[2021-07-27] MEDS ORDERED: DOXYCYCLINE HYCLATE 100 MG CAP PO SCH (21:00)
--- NOTE | 2021-07-27 22:44 | Hospitalist Progress Note ---
Date of Service July 27, 2021 Assessment & Plan (1) Stasis ulcer of lower extremity: Plan: No evidence of sepsis, significant improvement, de-escalate treatment, stop daptomycin, start oral Zyvox, wounds look significantly better, wound culture is not diagnostic Unkempt and has inability caring for his wound on his own due to morbid obesity and debility Consulted with wound care recommend dressing every other day, patient lives by himself in a trailer, due to obesity patient cannot reach his wound therefore he needs to help, family is not able to provide help, therefore discharge could be challenging, discussed with ed case manager in details, order for PT OT will continue zyvox given MDR E. Coli in past. (2) Cellulitis of left leg: Plan: The plan as mentioned (3) Cellulitis of scrotum: Plan: Continue antibiotics as above No evidence of torsion or epididymitis on ultrasound No evidence of Kacie's gangrene Almost resolved (4) Chronic diastolic CHF (congestive heart failure): Plan: As per admission note patient with volume overload Start Lasix 40 mg daily intravenous (5) Diarrhea: Plan: Ongoing for 4 to 5 months. Reports anywhere from 1-3 loose stools per day, no nblobob Was hospitalized in 03/2021 for this and treated for E. coli diarrhea with Cipro No electrolyte abnormality, started on Lomotil Has follow-up appointment planned with [facility] in [place] in the near future Started on Imodium (6) Elevated INR: Plan: On anticoagulation with Coumadin for history of atrial fibrillation and DVT INR 5.7 on arrival. He has been taking antibiotics recently and has not been checking his INR due to not leaving his home. Hold Coumadin No need for vitamin K reversal as he is not bleeding from anywhere Follow INR in the morning (7) RANDY on CPAP: Plan: Continue CPAP (8) Chronic venous insufficiency: Plan: Elevate legs when possible Needs weight loss (9) Anemia: Plan: Normocytic anemia with hemoglobin of 12, stable from previous Likely due to chronic kidney disease Check iron studies, B12, folate, TSH in the morning (10) Atrial fibrillation: Plan: Rate controlled Continue metoprolol, diltiazem Coumadin on hold for elevated INR No need for telemetry monitoring (11) CKD (chronic kidney disease), stage III: Plan: Creatinine baseline around 1.8-2.0 Creatinine is slightly below baseline at 1.7 Giving IV diuretics as above Follow BMP Avoid nephrotoxins Renally dose medications when appropriate (12) History of Abhijit-en-Y gastric bypass: Plan: With a history of such in 2004 with complication of perforated bowel requiring recurrent surgery Follows with [facility] surgery (13) Morbid obesity with BMI of 50.0-59.9, adult: Plan: BMI 51.7 He reports he previously weighed 540 pounds prior to his gastric bypass surgery Continued weight loss would be prudent (14) Type 2 diabetes mellitus: Plan: Most recent hemoglobin A1c 6.1% in 03/2021, well controlled Hold home glimepiride Give NovoLog sliding scale Check hemoglobin A1c in the morning Plan: DVT prophylaxis-anticoagulated with Coumadin Disposition-bring in on observation to medical/surgical unit. Did not meet criteria for inpatient admission at this time but suspect he will be here at least 2 midnights to follow blood cultures and make sure that cellulitis is improving and to get proper wound care Admission and Anticipated Discharge Date Admission Date: July 25, 2021 Subjective Patient reports no new symptoms. Patient states his diarrhea has improved, however it waxes and wanes. Review of Systems Review of Systems: All systems reviewed & are unremarkable except as noted in HPI & below Physical Exam Physical Exam: Constitutional: WD/WN, vitals as above + morbidly obese Eyes: PERRL, conjunctivae normal, anicteric sclerae ENMT: Ears: no hearing impairment Neck: trachea midline, no thyromegaly Respiratory: normal respiratory effort, lungs clear to auscultation Cardiovascular: Rate/Rhythm: regular rate and + irregularly irregular Heart Sounds: no murmur Vessels: dorsalis pedis pulses present Extremities: + edema (3+ edema bilateral lower extremities) Chest (Breasts): Chest: normal inspection of chest Gastrointestinal (Abdomen): Inspection/Auscultation: normal bowel sounds; + abdomen abnormal to inspection (Large surgical scar right mid abdomen) and abdomen not distended Percussion/Palpation: abdomen soft and + hernia (Large ventral hernia reducible); abdomen nontender Musculoskeletal: Extremities: no cyanosis and no clubbing Neurologic: moves all extremities and awake; no focal motor deficits Psychiatric: A+Ox3, euthymic affect Genitourinary: + penis abnormality (Buried penis), + scrotum abnormality (Erythema, swelling, a few small open wounds with bleeding) and + hydrocele Results & Data Results & Data ([facility]) Vital Signs (Past 12 Hours) Vital Signs Temp Pulse Pulse Resp BP Pulse Ox 07/27/21 22:21 36.5 C 79 18 152/75 H 95 07/27/21 15:26 36.4 C L 81 18 109/61 94 PG Care Time/CCT Total # of Minutes Spent Total Time Spent with Patient: Total time spent is greater than 50% in coordination of care (as documented) at patient's floor/unit and/or counseling patient: Coding Level of Care Code 75759 Subseq Hosp Care Lvl 3 Diagnoses Stasis ulcer of lower extremity I83.009; L97.909 Cellulitis of left leg L03.116 Cellulitis of scrotum N49.2 Chronic diastolic CHF (congestive heart failure) I50.32 Diarrhea R19.7 Diarrhea type: unspecified type Elevated INR R79.1 RANDY on CPAP G47.33; Z99.89 Chronic venous insufficiency I87.2 Anemia D64.9 Anemia type: unspecified type Atrial fibrillation I48.91 CKD (chronic kidney disease), stage III N18.3 History of Abhijit-en-Y gastric bypass Z98.84 Morbid obesity with BMI of 50.0-59.9, adult E66.01; Z68.43 Type 2 diabetes mellitus E11.9 Chronic kidney disease stage: stage 3 (moderate) Diabetes mellitus complication detail: with chronic kidney disease Diabetes mellitus complication status: with kidney complications Diabetes mellitus exterminator insulin use: without usp use Time Spent (min) 35 (1) Type 2 diabetes mellitus Chronic kidney disease stage: stage 3 (moderate) Diabetes mellitus complication detail: with chronic kidney disease Diabetes mellitus complication status: with kidney complications Diabetes mellitus usp insulin use: without exterminator use (2) Anemia Anemia type: unspecified type Qualified Code(s): D64.9 - Anemia, unspecified (3) Diarrhea Diarrhea type: unspecified type Qualified Code(s): R19.7 - Diarrhea, unspecified
[2021-07-28] MEDS: METOPROLOL TARTRATE 50 MG TAB PO SCH ×2 (07:56→21:51)
[2021-07-28] MEDS: OXYBUTYNIN CHLORIDE XL 5 MG TABCR PO SCH ×2 (07:56→21:52)
[2021-07-28] MEDS: FUROSEMIDE 40 MG/4 ML VIAL IV SCH (07:56)
[2021-07-28] MEDS: ASPIRIN 81 MG ECTAB PO SCH ×2 (07:57→07:59)
[2021-07-28] MEDS: LINEZOLID 600 MG TAB PO SCH ×2 (07:57→21:51)
[2021-07-28] MEDS: ASCORBIC ACID 500 MG TAB PO SCH (07:59)
[2021-07-28] MEDS: dilTIAZem ER 120 MG CAPCR PO SCH (07:59)
[2021-07-28] MEDS: CHOLECALCIFEROL 400 UNITS 10 MCG TAB PO SCH (07:59)
[2021-07-28] MEDS: MICONAZOLE NITRATE POWDER 43 GM EXT SCH ×2 (07:59→21:52)
[2021-07-28] MEDS: FEXOFENADINE HCL 180 MG TAB PO SCH (07:59)
[2021-07-28] MEDS: INSULIN ASPART PER UNIT SC SCH ×4 (09:12→21:56)
[2021-07-28 09:46] LABS: INR 1.8 (0.9-1.1); Prothrombin Time 18.3 Seconds (9.0-12.0)
[2021-07-28 10:04] LABS: BUN Creatinine Ratio 10.5 (10-20); Calcium 8.7 mg/dl (8.5-10.1); Creatinine Clr Calc Pharmacy 86.7 ml/min; Est GFR (Non-African American) 51.8 ml/min; Potassium 3.5 mmol/L (3.5-5.1)
[2021-07-28] MEDS ORDERED: WARFARIN SOD 7.5 MG TAB PO SCH (16:00)
--- NOTE | 2021-07-28 19:19 | Hospitalist Progress Note ---
Date of Service July 28, 2021 Assessment & Plan (1) Cellulitis of left leg: Plan: I am unclear fully on the reasoning behing Zyvox since we are treating cellulitis and prior MDR E. coli was in the urine and Zyvox would cover for this regardless. However he is clearly improving and suspect choice was based on simply because he has grown MDR organisms prior would be prudent to cover for MRSA. Does not appear to need anerobic/gram negative coverage since improving on Zyvox. Will continue Zyvox to complete treatment course. Duration to be determined on discharge as wound not inspected as wrapped today. Blood cultures negative after 48 hours (2) Stasis ulcer of lower extremity: Plan: As above. Continue wound care follow up on discharge. Will inspect wound prior to discharge. (3) Cellulitis of scrotum: Plan: Appears to be resolved (4) Chronic diastolic CHF (congestive heart failure): Plan: Appears to be euvolemic currently and will switch back to his usual Lasix 40mg PO daily Improvement in Cr with increased IV dosing does favour he was hypervolemic on admission therefore would be prudent to update his echocardiogram from 2 years ago TTE ordered Continue Lasix 40mg PO daily (5) Diarrhea: Plan: Now without BM for 2 days. D/c immodium (6) Elevated INR: Plan: Elevated INR on admission suspect due to antibiotics given as outpatient Usually takes 3.75mg PO MWF and 7.5mg PO all other days INR 1,8 today from 2.7 the day before. Will restart warfarin @ 7.5mg PO daily until INR therapeutic (7) RANDY on CPAP: Plan: Continue CPAP HS (8) Chronic venous insufficiency: Plan: Elevate legs when possible Needs weight loss (9) Anemia: Plan: Normocytic anemia with hemoglobin of 12, stable from previous Likely due to chronic kidney disease TSH 2.9 Transferrin sats 21% B12 > 1500 Folate WNL (10) Atrial fibrillation: Plan: Rate controlled Continue metoprolol, diltiazem Warfarin as above (11) CKD (chronic kidney disease), stage III: Plan: Improved back to [place] with IV diuresis (12) History of Abhijit-en-Y gastric bypass: Plan: With a history of such in 2004 with complication of perforated bowel requiring recurrent surgery Follows with [facility] surgery (13) Morbid obesity with BMI of 50.0-59.9, adult: Plan: BMI 51.7 He reports he previously weighed 540 pounds prior to his gastric bypass surgery Continued weight loss would be prudent (14) Type 2 diabetes mellitus: Plan: Most recent hemoglobin A1c 6.1% in 03/2021, well controlled Hold home glimepiride - can resume on discharge as long as no hypoglycemic episodes at home HbA1C 6.1 Novolog: Goal BSG Range: Low 100_mg/dL, High 140_mg/dL Correction Factor: _30 mg/dL/unit Carbohydrate ratio = _15_ g/unit BSGs ACHS if eating, q6h if npo POC glucose 83-152 [07/27] Plan: DVT prophylaxis - anticoagulated with Coumadin, no need for cross coverage with INR 1.8 Disposition- medically stable for discharge pending placement Admission and Anticipated Discharge Date Admission Date: July 25, 2021 Subjective No questions or concern. He reports cellulitis has mostly resolved. No BM for 2 days now after having diarrhea. He has been getting IV Lasix however he reports not significant change in his shortness of breath or leg swelling. His weight has not changed but unclear how accurate this has been since it has not changed at all since admission. I&Os show a slightly negative balance. Review of Systems Review of Systems: All systems reviewed & are unremarkable except as noted in Subjective Physical Exam Constitutional: WD/WN, vitals as above Respiratory: normal respiratory effort, lungs clear to auscultation Cardiovascular: Rate/Rhythm: regular rate and + irregularly irregular Extremities: + pedal edema (1+ b/l equal with chronic venous stasis changes) Gastrointestinal (Abdomen): normal bowel sounds, soft, nontender, no hepatosplenomegaly Skin: no cellulitis past 7cm bandage on left lower extremity or on ankle Psychiatric: A+Ox3, euthymic affect Results & Data Results & Data ([facility]) Vital Signs (Past 12 Hours) Vital Signs Temp Pulse Resp BP BP Pulse Ox 07/28/21 15:30 36.5 C 68 18 104/63 96 07/28/21 07:45 36.8 C 79 16 138/77 95 PG Care Time/CCT Total # of Minutes Spent Total Time Spent with Patient: Total time spent is greater than 50% in coordination of care (as documented) at patient's floor/unit and/or counseling patient: Coding Level of Care Code 81253 Subseq Hosp Care Lvl 2 Diagnoses Stasis ulcer of lower extremity I83.009; L97.909 Cellulitis of left leg L03.116 Cellulitis of scrotum N49.2 Chronic diastolic CHF (congestive heart failure) I50.32 Diarrhea R19.7 Diarrhea type: unspecified type Elevated INR R79.1 RANDY on CPAP G47.33; Z99.89 Chronic venous insufficiency I87.2 Anemia D64.9 Anemia type: unspecified type Atrial fibrillation I48.91 CKD (chronic kidney disease), stage III N18.3 History of Abhijit-en-Y gastric bypass Z98.84 Morbid obesity with BMI of 50.0-59.9, adult E66.01; Z68.43 Type 2 diabetes mellitus E11.9 Chronic kidney disease stage: stage 3 (moderate) Diabetes mellitus complication detail: with chronic kidney disease Diabetes mellitus complication status: with kidney complications Diabetes mellitus senior care insulin use: without senior care use (1) Type 2 diabetes mellitus Chronic kidney disease stage: stage 3 (moderate) Diabetes mellitus complication detail: with chronic kidney disease Diabetes mellitus complication status: with kidney complications Diabetes mellitus senior care insulin use: without parts counterman use (2) Anemia Anemia type: unspecified type Qualified Code(s): D64.9 - Anemia, unspecified (3) Diarrhea Diarrhea type: unspecified type Qualified Code(s): R19.7 - Diarrhea, unspecified
[2021-07-29] MEDS ORDERED: PERFLUTREN LIPID MICROSPHERE (DEFINITY) IV ONE (08:26)
[2021-07-29] MEDS: OXYBUTYNIN CHLORIDE XL 5 MG TABCR PO SCH (08:49)
[2021-07-29] MEDS: dilTIAZem ER 120 MG CAPCR PO SCH (08:49)
[2021-07-29] MEDS: METOPROLOL TARTRATE 50 MG TAB PO SCH (08:50)
[2021-07-29] MEDS: FEXOFENADINE HCL 180 MG TAB PO SCH (08:51)
[2021-07-29] MEDS: ASCORBIC ACID 500 MG TAB PO SCH (08:51)
[2021-07-29] MEDS: CHOLECALCIFEROL 400 UNITS 10 MCG TAB PO SCH (08:52)
[2021-07-29] MEDS ORDERED: FUROSEMIDE 40 MG TAB PO SCH (09:00)
[2021-07-29] MEDS: INSULIN ASPART PER UNIT SC SCH ×2 (09:01→12:19)
[2021-07-29] MEDS: MICONAZOLE NITRATE POWDER 43 GM EXT SCH (09:02)
[2021-07-29 09:16] LABS: INR 1.6 (0.9-1.1)
--- NOTE | 2021-07-29 11:36 | Discharge Summary ---
Date of Service July 29, 2021 Admission HPI Per Admitting Provider This patient is a 65-year-old male with a history of morbid obesity, atrial fibrillation on Coumadin, RANDY, hyperlipidemia, HTN, chronic venous insufficiency, HFpEF, recurrent DVT, DM2, CKD stage III, who presents to the ER at the encouragement of his cousin who came to visit him today and noticed his leg to look infected. He reports he has had some increased swelling and redness over the last few days to week at home. [place] is quite sedentary [place] He sits around most of the day and his leg does rest against the foot rest of the recliner. He has been trying to put salve on the wound using a stick because he cannot reach his leg. He denies any fevers or chills but says he always feels cold. He denies any pain in the leg but says he cannot feel much down that way anyway. He avoids going to the doctor is much as he can he states. He has not had his INR checked in a month and it was elevated in the ER at 5.6. No chest pains or shortness of breath, no abdominal pains. He has been dealing with diarrhea for the last 3 to 4 months since his last hospitalization. No nausea or vomiting. Vital signs in the ER were normal and he was afebrile. Laboratory values significant only for the elevated INR, mild chronic normocytic anemia, and a creatinine of 1.7 which is around his baseline. He will be admitted for treatment of left leg and scrotal cellulitis. There is no evidence of sepsis, however he is very unkempt and has great difficulty taking care of himself properly at home. Discharge Data Allergies Allergy/AdvReac Type Severity Reaction Status Date / Time No Known Allergies Allergy Verified 07/24/21 15:24 Consultations 07/24/21 17:45 ED Decision to Admit Stat Ordered Studies 07/24/21 15:09 US scrotum/testicle Stat US venous doppler LE LT Stat Hospital Course (1) Cellulitis of left leg: I am unclear fully on the reasoning behing Zyvox since we are treating cellulitis and prior MDR E. coli was in the urine and Zyvox would cover for this regardless. However he is clearly improving and suspect choice was based on simply because he has grown MDR organisms prior would be prudent to cover for MRSA. Does not appear to need anerobic/gram negative coverage since improving on Zyvox. Will continue Zyvox to complete treatment course. Duration to be determined on discharge as wound not inspected as wrapped today. Blood cultures negative after 48 hours (2) Stasis ulcer of lower extremity: As above. Continue wound care follow up on discharge. Will inspect wound prior to discharge. (3) Cellulitis of scrotum: Appears to be resolved (4) Chronic diastolic CHF (congestive heart failure): Appears to be euvolemic currently and will switch back to his usual Lasix 40mg PO daily Improvement in Cr with increased IV dosing does favour he was hypervolemic on admission therefore would be prudent to update his echocardiogram from 2 years ago TTE ordered Continue Lasix 40mg PO daily (5) Diarrhea: Now without BM for 2 days. D/c immodium (6) Elevated INR: Elevated INR on admission suspect due to antibiotics given as outpatient Usually takes 3.75mg PO MWF and 7.5mg PO all other days INR 1,8 today from 2.7 the day before. Will restart warfarin @ 7.5mg PO daily until INR therapeutic (7) RANDY on CPAP: Continue CPAP HS (8) Chronic venous insufficiency: Elevate legs when possible Needs weight loss (9) Anemia: Normocytic anemia with hemoglobin of 12, stable from previous Likely due to chronic kidney disease TSH 2.9 Transferrin sats 21% B12 > 1500 Folate WNL (10) Atrial fibrillation: Rate controlled Continue metoprolol, diltiazem Warfarin as above (11) CKD (chronic kidney disease), stage III: Improved back to [place] with IV diuresis (12) History of Abhijit-en-Y gastric bypass: With a history of such in 2004 with complication of perforated bowel requiring recurrent surgery Follows with [facility] surgery (13) Morbid obesity with BMI of 50.0-59.9, adult: BMI 51.7 He reports he previously weighed 540 pounds prior to his gastric bypass surgery Continued weight loss would be prudent (14) Type 2 diabetes mellitus: Most recent hemoglobin A1c 6.1% in 03/2021, well controlled Hold home glimepiride - can resume on discharge as long as no hypoglycemic episodes at home HbA1C 6.1 Novolog: Goal BSG Range: Low 100_mg/dL, High 140_mg/dL Correction Factor: _30 mg/dL/unit Carbohydrate ratio = _15_ g/unit BSGs ACHS if eating, q6h if npo POC glucose 83-152 [07/27] DVT prophylaxis - anticoagulated with Coumadin, no need for cross coverage with INR 1.8 Disposition- medically stable for discharge pending placement Discharge Plan Discharge Items Patient Disposition: Transfer Correction Fac Reason For Visit: LEG AND SCROTAL CELLULITIS Discharge Diagnosis: Left leg venous ulcer and surrounding cellulitis Scrotal cellulitis Activity: Resume your previous activity Non-emergency contact: Primary Care Provider Call non-emergency contact if: you have any medication questions and your symptoms worsen Follow-up/Referrals: Wanda Lantigua PA-C [Primary Care Provider] - Diet: Heart Healthy and Low Sodium (2gm) Addtl Attending Provider Instructions: You were admitted to [facility] from July 24 - 2021 due to left leg cellulitis surrounding a venous ulcer. This was treated with Daptomycin/vancomycin and switched to linezolid with almost complete resolution of cellulitis in both scrotum and . You continue to have a significant venous ulcer however and recommend following up with wound care regarding this - initially at [facility] but will need referral on discharge from here. Please see separate wound care instructions. You also received increased diuretics during your inpatient admission with improvement in his renal function (creatinine) suggestive of hypervolemic status on admission. Since you report being at your baseline shortness of breath on e xertion, on room air and leg swelling at baseline on discharge recommend continuing your usual dose of Lasix 40mg daily however this could be increased to twice a day if you start to notice increased swelling. Repeat up to date echocardiogram is pending on discharge. Please follow up with your primary care physician regarding this. Of note INR was elevated on admission therefore warfarin was held. Warfarin restart 7.5 on July 28 with INR 1.8. INR 1.6 on day of discharge [07/29]. Please take 7.5mg PO daily warfarin until INR is therapeutic and then switch back to your usual 3.75mg PO Sunday, Sunday, Sunday and 7.5mg PO all other days. Pending Studies at Discharge: No Stand-Alone Forms: My [facility] Skilled Items Patient informed of condition?: Yes DNR: Yes Discharge Level of Care: Acute rehab Communicable Disease: Yes (Prio MDR E. coli UTI in Mar, 2021) Discharge Prognosis: Stable Lines: None Urinary Catheter: No Medications and DC Order Prescriptions: New Desenex 2 % Powder 1 applic EXT BID Qty: 85 RF: 0 linezolid 600 mg tablet 600 mg PO BID 5 Days Qty: 10 RF: 0 Continued atorvastatin 20 mg tablet 20 mg PO DAILY Qty: 90 RF: 3 diltiazem HCl 120 mg capsule,extended release 12 hr 120 mg PO DAILY Qty: 90 RF: 3 glimepiride 2 mg tablet 2 mg PO DAILY Qty: 90 RF: 3 metoprolol tartrate 50 mg tablet 50 mg PO BID Qty: 180 RF: 3 potassium chloride 10 mEq tablet extended release 10 meq PO DAILY Qty: 90 RF: 3 warfarin 7.5 mg tablet 7.5 mg PO .COMPLEX Qty: 90 RF: 3 fexofenadine [Anju Allergy] 180 mg Tablet 180 mg PO DAILY RF: 0 ascorbic acid (vitamin C) [Vitamin C] 500 mg Tablet,Chewable 500 mg PO DAILY RF: 0 cholecalciferol (vitamin D3) [Vitamin D3] 400 unit Tablet,Chewable 400 unit PO DAILY RF: 0 Flintstones Gummies Tablet,Chewable 1 tab PO DAILY RF: 0 calcium-vitamin D3-vitamin K [Viactiv] 650 mg-12.5 mcg-40 mcg Tablet,Chewable 1 tab PO DAILY RF: 0 aspirin [Ecotrin Low Strength] 81 mg Tablet,Delayed Release (Dr/Ec) 81 mg PO QAM Qty: 30 RF: 3 oxybutynin chloride 10 mg tablet extended release 24 hr 10 mg PO BID RF: 0 Changed furosemide 20 mg tablet 40 mg PO DAILY Qty: 180 RF: 3 Discharge Orders: Discharge Order (Routine); Ordered 07/29/21 Ordered By: Justin Hager Admission Data Admit Date/Time: 07/25/21 18:58 Attending Provider: Justin Hager Admit Provider: Qian Queen Primary Care Provider: Wanda Lantigua Other Providers: Qian Queen ; [place],Care Coding Diagnoses Cellulitis of left leg L03.116 Stasis ulcer of lower extremity I83.009; L97.909 Cellulitis of scrotum N49.2 Chronic diastolic CHF (congestive heart failure) I50.32 Diarrhea R19.7 Diarrhea type: unspecified type Elevated INR R79.1 RANDY on CPAP G47.33; Z99.89 Chronic venous insufficiency I87.2 Anemia D64.9 Anemia type: unspecified type Atrial fibrillation I48.91 CKD (chronic kidney disease), stage III N18.3 History of Abhijit-en-Y gastric bypass Z98.84 Morbid obesity with BMI of 50.0-59.9, adult E66.01; Z68.43 Type 2 diabetes mellitus E11.9 Diabetes mellitus long term care pharmacist insulin use: without long term care pharmacist use Diabetes mellitus complication status: with kidney complications Diabetes mellitus complication detail: with chronic kidney disease Chronic kidney disease stage: stage 3 (moderate)
[2021-07-29] MEDS ORDERED: LINEZOLID 600 MG TAB PO SCH (11:45)
--- NOTE | 2021-07-29 17:00 | XCELERA ---
[id number]
--- NOTE | 2021-08-01 05:24 | Coding Query ---
CONGESTIVE HEART FAILURE To Promote full compliance with coding requirements relating to patient care, physician participation is requested in all cases of property claims adjuster uncertainty. Please assist us with the following questions. A diagnosis of Congestive Heart Failure is documented in the patient's medical record. To accurately code this diagnosis and to compare patient severity, we ask that you specify the type of heart failure by placing an X within the parenthesis (x). Pt with chronic diastolic heart failure admitted with volume overload. Given 40 mg IV Lasix during admission. Updated MICHELLE ordered . Please check below the diagnosis that was treated during this admission. Thanks for your help! FELIPE Aguilera CCS SYSTOLIC HEART FAILURE ( ) Acute ( ) Chronic ( ) Acute on Chronic ( ) Rheumatic ( ) Unknown DIASTOLIC HEART FAILURE ( ) Acute ( ) Chronic ( ) Acute on Chronic ( ) Rheumatic ( ) Unknown COMBINED SYSTOLIC AND DIASTOLIC HEART FAILURE ( ) Acute ( ) Chronic ( ) Acute on Chronic ( ) Rheumatic ( ) Unknown Was the CHF Present On Admission? Please check the appropriate box: ( ) Present on Admission ( ) Not Present On Admission ( ) Clinically undetermined Thank you Blake MONSIVAIS
== END 2021-07-29 13:57 ==
LOC: 3N 14:28 → ED 14:28 → SUATTDRO 18:28 → 3N 19:32 → SUATTDRO 07-25 18:58 → 3N 07-26 19:50

== ENCOUNTER 2021-11-03 14:47 | Inpatient (IN) ==
--- NOTE | 2021-11-03 15:07 | Emergency Department Note ---
Impression & Plan Hypoglycemia, Weakness, Side effect of medication, Hypocalcemia ED Provider Note NAME: FREDDY MCNEIL AGE: 66 SEX: M : 1955 ARRIVES VIA: Ambulance INFORMANT: Patient, ED PROVIDER(S): Danny Lam MD Chief Complaint: Confusion, hypoglycemia HPI: Patient presents from home and states that he was trying to communicate with the family as he was not feeling quite well and that he was having some difficulty with texting. EMS arrived and of his BSG was at 38. The patient did receive D10 repeat BSG was improved. Patient denies any recent changes in medications. The patient states that he might benefit from PT as he is having some difficulty with ambulation and typically can only get from the truck to his home and back. Patient Nuys any chest pain shortness of breath nausea or vomiting. The patient did have some diarrhea type illness which he states has improved ever since following up at [facility] to where they started him on activity and MiraLAX. Patient denies any large weight change. Patient denies any change in his diet. Patient knows that he does take a blood sugar medication but no recent changes or missed doses. He last took it this morning. ROS: See HPI for pertinent positives and negatives. A total of 10 systems were reviewed and otherwise negative. Past medical history: See below Surgical history: See below Social history: See below Physical Exam: GENERAL: NAD, wearing a mask, non-toxic. Morbidly obese, wearing glasses. EYE EXAM: Normal conjunctiva. PERRL, no anisocoria and EOM's grossly intact w/o pain. NECK: Supple, no nuchal rigidity, no adenopathy, non-tender. No signs of meningismus. FROM of the neck with good chin to chest and neck extension. No stridor. LUNGS: Clear to auscultation. Normal chest wall mechanics. HEART: Irregularly irregular, no MRG. ABDOMEN: Abdomen soft, fairly well-healed scarring site over the right upper ab with central small 1 cm eschar, no surrounding erythema fluctuance or drainage, mid abdominal hernia noted no TTP. Normoactive bowel sounds, no masses, no rebound or guarding. BACK: No CVA TTP. SKIN: No rashes and no bruising. UPPER EXTREMITIES: Upper extremities are grossly normal. LOWER EXTREMITIES: Chronic skin changes of the bilateral lower extremities, compartments are soft and neurovascular intact distally. NEURO EXAM: A&O x3, cranial nerves II-XII grossly intact, normal speech, moves all 4 extremities. Differential diagnoses: Infection, dehydration, metabolic abnormality, hypo/hyperglycemia, electrolyte disturbance, anemia, hypoxia, cardiac sources, intracerebral event, toxicologic, neurologic, as well as other pathologies. Course: Patient was seen and evaluated the bedside. Full history physical exam was performed. EKG interpreted by me Moody bazan, rate of 75, left axis deviation. Right bundle branch block pattern. No significant change from comparison April 06, 2021. Imaging Studies: See Below Cardiac monitoring: An order was placed for continuous cardiac monitoring. The monitor shows a rate of 65 with irregularly irregular rhythm. MDM: Patient presents due to concern for hypoglycemic episode. Blood work is obtained along with an EKG troponin chest x-ray. The patient was given D50 and was started on D10. Patient's blood work showed a normal white count with a hemoglobin 11.3. The patient's platelet count was unremarkable. Kidney function at virtual baseline with creatinine 1.6 mild hypokalemia 3.3. Patient did require additional glucose and was uptitrated on his D10. Patient received additional amp of D50. Given the patient's glimepiride use and persistent hypog lycemia believe the patient would benefit from admission. I did speak the on- call hospitalist Dr. Khalil and the patient was admitted to the medicine service. Critical Care: I have personally spent 47 minutes of critical care time in direct management of this patient. This includes bedside care, interpretation of diagnostic studies, and testing, discussion with consultants, patient, and family members, and other require inpatient management activities. This 47 minutes is in excess of all [facility] billable procedures. Past Med/Surg History Medical History Anemia Atrial fibrillation Bilateral hydrocele CHF (congestive heart failure) CKD (chronic kidney disease), stage III Kidney stones Morbid obesity with BMI of 50.0-59.9, adult New onset atrial fibrillation RANDY on CPAP Pyelonephritis of left kidney Type 2 diabetes mellitus Urinary pain Surgical History History of nephrostomy History of Abhijit-en-Y gastric bypass Family History Other Family history non-contributory Social History Smoking Status: Never smoker Second Hand Exposure: No; Do You Dip or Chew Tobacco: Yes (Quit many years ago.); Tobacco Cessation Education Requested by Patient: No Hx Alcohol Use: No Hx Substance Use: No Preferred Language: Estonian Communication Ability: Effective Mental Health Case Manager Required: No Beliefs That Will Affect Care: None marital status: Single Current Living Situation: Alone current occupational status: employed How many Children do You have: 0 Other Information That Helps Us Care for You: No Feels Safe at Home: Yes Safety Concerns: Feels Safe At This Time Dental Care, Regularly: No Physical Activity Frequency: Other Assistive Devices: Glasses Allergies Allergies Allergy/AdvReac Type Severity Reaction Status Date / Time No Known Allergies Allergy Verified 11/03/21 20:02 Home Meds Home Medications Medication Instructions Recorded Confirmed ascorbic acid (vitamin C) 500 mg 500 mg PO DAILY 01/03/19 11/03/21 chewable tablet (Vitamin C) calcium 650 mg-vitamin D3 12.5 1 tab PO DAILY 01/03/19 11/03/21 mcg-vitamin K 40 mcg chewable tablet (Viactiv) cholecalciferol (vitamin D3) 10 400 unit PO DAILY 01/03/19 11/03/21 mcg (400 unit) chewable tablet (Vitamin D3) fexofenadine 180 mg tablet 180 mg PO DAILY 01/03/19 11/03/21 (Anju Allergy) oxybutynin chloride 10 mg 10 mg PO BID 07/24/21 11/03/21 tablet,extended release 24 hr Activa Yogurt 16 oz PO DAILY 11/03/21 11/03/21 glimepiride 2 mg tablet 2 mg PO QAM 11/03/21 11/03/21 multivitamin 1 tab PO DAILY 11/03/21 11/03/21 polyethylene glycol 3350 17 17 g PO DAILY 11/03/21 11/03/21 gram/dose oral powder (Miralax) Previous Rx's Medication Instructions Recorded aspirin 81 mg tablet,delayed 81 mg PO QAM #30 tabs 02/26/19 release (Ecotrin Low Strength) atorvastatin 20 mg tablet 20 mg PO DAILY #90 tabs 07/25/21 diltiazem HCl 120 mg 120 mg PO DAILY #90 caps 07/25/21 capsule,extended release 12 hr metoprolol tartrate 50 mg tablet 50 mg PO BID #180 tabs 07/25/21 potassium chloride 10 mEq 10 meq PO DAILY #90 tabs 07/25/21 tablet,extended release warfarin 7.5 mg tablet 7.5 mg PO .COMPLEX #90 tabs 07/25/21 furosemide 20 mg tablet 40 mg PO DAILY #180 tabs 07/29/21 miconazole nitrate 2 % topical 1 applic EXT BID #85 grams 07/29/21 powder (Desenex) omeprazole 20 mg tablet,delayed 20 mg PO DAILY #30 tabs 08/15/21 release Results & Data (ED) Vital Signs Vital Signs - 24 hr 11/03/21 14:58 11/03/21 15:52 11/03/21 15:52 Temperature 36.4 C L Temperature Source Oral Pulse Rate 79 Pulse Rate [Finger] 74 Respiratory Rate 20 18 Respiratory Effort / Characteristics Non-Labored Respiratory Depth Normal Blood Pressure 133/75 Blood Pressure [Right Arm] 142/77 H Blood Pressure Mean 94 Blood Pressure Mean [Right Arm] 98 Pulse Oximetry 96 97 Oxygen Delivery Method Room Air Room Air Sepsis Recent Fever Within 48 Hours No Sepsis New/Unexplained Change in Mental Status No Sepsis Action Taken by Nursing No Action Required 11/03/21 17:28 Temperature Temperature Source Pulse Rate Pulse Rate [Finger] 78 Respiratory Rate 20 Respiratory Effort / Characteristics Respiratory Depth Blood Pressure Blood Pressure [Right Arm] 137/76 Blood Pressure Mean Blood Pressure Mean [Right Arm] 96 Pulse Oximetry 97 Oxygen Delivery Method Room Air Sepsis Recent Fever Within 48 Hours Sepsis New/Unexplained Change in Mental Status Sepsis Action Taken by Long Term Medications Current Medication List: was personally reviewed by me Laboratory Data Attestation: I reviewed the patient's lab results. Result diagrams: 11/03/21 16:39 11/03/21 16:39 Lab Results 11/03/21 11/03/21 11/03/21 Range/Units 15:29 15:41 16:10 WBC (4.8-10.8) K/ul RBC (4.63-6.08) M/uL Hgb (14.0-18.0) g/dl Hct (40.1-51.0) % MCV (80.0-100.0) fL MCH (25.0-34.0) pg MCHC (32.0-36.0) g/dL RDW Std Deviation (36.4-46.3) fL RDW Coeff of Evan (11.5-14.5) % Plt Count (130-400) K/uL MPV (9.4-12.4) fL Immature Gran % (Auto) % Neut % (Auto) % Lymph % (Auto) % [place] % (Auto) % Eos % (Auto) % Baso % (Auto) % Neut # (Auto) (1.4-6.5) K/uL Lymph # (Auto) (1.2-3.4) K/uL [place] # (Auto) (0.24-0.82) K/uL Eos # (Auto) (0-0.50) K/uL Baso # (Auto) (0-0.2) K/uL Immature Gran # (Auto) (0.00-0.02) K/uL PT (9.0-12.0) Seconds INR (0.9-1.1) Sodium (136-145) mmol/L Potassium (3.5-5.1) mmol/L Chloride (98-107) mmol/L Carbon Dioxide (21-32) mmol/L Anion Gap (3-11) BUN (6-23) mg/dl Creatinine (0.6-1.4) mg/dl Est Cr Clr Drug Dosing ml/min Est GFR ( Amer) ml/min Est GFR (Non-Af Amer) ml/min BUN/Creatinine Ratio (10-20) Glucose (70-99(Fasting)) mg/dl POC Glucose 43 L* 99 (70-99) mg/dl Calcium (8.5-10.1) mg/dl Magnesium (1.7-2.4) mg/dl Total Bilirubin (0.2-1.0) mg/dl AST (13-39) U/L ALT (7-52) U/L Alkaline Phosphatase (34-104) U/L Total Protein (6.0-8.3) gm/dl Albumin (3.4-5.0) gm/dl Globulin (2.5-4.0) gm/dl Albumin/Globulin Ratio (0.9-2) TSH (0.300-4.500) uIu/ml SARS-CoV-2, RNA, NAAT NEGATIVE (NEGATIVE) 11/03/21 11/03/21 11/03/21 Range/Units 16:39 16:39 16:39 WBC 7.91 (4.8-10.8) K/ul RBC 4.06 L (4.63-6.08) M/uL Hgb 11.3 L (14.0-18.0) g/dl Hct 36.3 L (40.1-51.0) % MCV 89.4 (80.0-100.0) fL MCH 27.8 (25.0-34.0) pg MCHC 31.1 L (32.0-36.0) g/dL RDW Std Deviation 53.3 H (36.4-46.3) fL RDW Coeff of Evan 16.4 H (11.5-14.5) % Plt Count 256 (130-400) K/uL MPV 9.2 L (9.4-12.4) fL Immature Gran % (Auto) 0.9 % Neut % (Auto) 84.3 % Lymph % (Auto) 8.3 % [place] % (Auto) 5.9 % Eos % (Auto) 0.3 % Baso % (Auto) 0.3 % Neut # (Auto) 6.67 H (1.4-6.5) K/uL Lymph # (Auto) 0.66 L (1.2-3.4) K/uL [place] # (Auto) 0.47 (0.24-0.82) K/uL Eos # (Auto) 0.02 (0-0.50) K/uL Baso # (Auto) 0.02 (0-0.2) K/uL Immature Gran # (Auto) 0.07 H (0.00-0.02) K/uL PT 48.0 H (9.0-12.0) Seconds INR 4.9 H (0.9-1.1) Sodium 140 (136-145) mmol/L Potassium 3.3 L (3.5-5.1) mmol/L Chloride 111 H (98-107) mmol/L Carbon Dioxide 23 (21-32) mmol/L Anion Gap 6 (3-11) BUN 29 H (6-23) mg/dl Creatinine 1.63 H (0.6-1.4) mg/dl Est Cr Clr Drug Dosing 76.1 ml/min Est GFR ( Amer) 50.8 ml/min Est GFR (Non-Af Amer) 43.9 ml/min BUN/Creatinine Ratio 17.8 (10-20) Glucose 68 L (70-99(Fasting)) mg/dl POC Glucose (70-99) mg/dl Calcium 7.7 L (8.5-10.1) mg/dl Magnesium 1.7 (1.7-2.4) mg/dl Total Bilirubin 0.4 (0.2-1.0) mg/dl AST 13 (13-39) U/L ALT 11 (7-52) U/L Alkaline Phosphatase 75 (34-104) U/L Total Protein 6.0 (6.0-8.3) gm/dl Albumin 2.5 L (3.4-5.0) gm/dl Globulin 3.5 (2.5-4.0) gm/dl Albumin/Globulin Ratio 0.7 L (0.9-2) TSH (0.300-4.500) uIu/ml SARS-CoV-2, RNA, NAAT (NEGATIVE) 11/03/21 11/03/21 11/03/21 Range/Units 16:39 16:43 16:44 WBC (4.8-10.8) K/ul RBC (4.63-6.08) M/uL Hgb (14.0-18.0) g/dl Hct (40.1-51.0) % MCV (80.0-100.0) fL MCH (25.0-34.0) pg MCHC (32.0-36.0) g/dL RDW Std Deviation (36.4-46.3) fL RDW Coeff of Evan (11.5-14.5) % Plt Count (130-400) K/uL MPV (9.4-12.4) fL Immature Gran % (Auto) % Neut % (Auto) % Lymph % (Auto) % [place] % (Auto) % Eos % (Auto) % Baso % (Auto) % Neut # (Auto) (1.4-6.5) K/uL Lymph # (Auto) (1.2-3.4) K/uL [place] # (Auto) (0.24-0.82) K/uL Eos # (Auto) (0-0.50) K/uL Baso # (Auto) (0-0.2) K/uL Immature Gran # (Auto) (0.00-0.02) K/uL PT (9.0-12.0) Seconds INR (0.9-1.1) Sodium (136-145) mmol/L Potassium (3.5-5.1) mmol/L Chloride (98-107) mmol/L Carbon Dioxide (21-32) mmol/L Anion Gap (3-11) BUN (6-23) mg/dl Creatinine (0.6-1.4) mg/dl Est Cr Clr Drug Dosing ml/min Est GFR ( Amer) ml/min Est GFR (Non-Af Amer) ml/min BUN/Creatinine Ratio (10-20) Glucose (70-99(Fasting)) mg/dl POC Glucose 64 L* 112 H (70-99) mg/dl Calcium (8.5-10.1) mg/dl Magnesium (1.7-2.4) mg/dl Total Bilirubin (0.2-1.0) mg/dl AST (13-39) U/L ALT (7-52) U/L Alkaline Phosphatase (34-104) U/L Total Protein (6.0-8.3) gm/dl Albumin (3.4-5.0) gm/dl Globulin (2.5-4.0) gm/dl Albumin/Globulin Ratio (0.9-2) TSH 2.095 (0.300-4.500) uIu/ml SARS-CoV-2, RNA, NAAT (NEGATIVE) 11/03/21 11/03/21 Range/Units 17:17 17:22 WBC (4.8-10.8) K/ul RBC (4.63-6.08) M/uL Hgb (14.0-18.0) g/dl Hct (40.1-51.0) % MCV (80.0-100.0) fL MCH (25.0-34.0) pg MCHC (32.0-36.0) g/dL RDW Std Deviation (36.4-46.3) fL RDW Coeff of Evan (11.5-14.5) % Plt Count (130-400) K/uL MPV (9.4-12.4) fL Immature Gran % (Auto) % Neut % (Auto) % Lymph % (Auto) % [place] % (Auto) % Eos % (Auto) % Baso % (Auto) % Neut # (Auto) (1.4-6.5) K/uL Lymph # (Auto) (1.2-3.4) K/uL [place] # (Auto) (0.24-0.82) K/uL Eos # (Auto) (0-0.50) K/uL Baso # (Auto) (0-0.2) K/uL Immature Gran # (Auto) (0.00-0.02) K/uL PT (9.0-12.0) Seconds INR (0.9-1.1) Sodium (136-145) mmol/L Potassium (3.5-5.1) mmol/L Chloride (98-107) mmol/L Carbon Dioxide (21-32) mmol/L Anion Gap (3-11) BUN (6-23) mg/dl Creatinine (0.6-1.4) mg/dl Est Cr Clr Drug Dosing ml/min Est GFR ( Amer) ml/min Est GFR (Non-Af Amer) ml/min BUN/Creatinine Ratio (10-20) Glucose (70-99(Fasting)) mg/dl POC Glucose 59 L* 51 L* (70-99) mg/dl Calcium (8.5-10.1) mg/dl Magnesium (1.7-2.4) mg/dl Total Bilirubin (0.2-1.0) mg/dl AST (13-39) U/L ALT (7-52) U/L Alkaline Phosphatase (34-104) U/L Total Protein (6.0-8.3) gm/dl Albumin (3.4-5.0) gm/dl Globulin (2.5-4.0) gm/dl Albumin/Globulin Ratio (0.9-2) TSH (0.300-4.500) uIu/ml SARS-CoV-2, RNA, NAAT (NEGATIVE) Administered Medications Aspirin (Aspirin 81 Mg Ectab) 81 mg PO QAM LAKESHIA Stop: 12/04/21 08:59 Last Admin: 11/04/21 08:22 Dose: 81 mg Documented By: ESTRELLA Atorvastatin Calcium (Atorvastatin 20 Mg Tab) 20 mg PO DAILY LAKESHIA Stop: 12/04/21 08:59 Last Admin: 11/04/21 08:23 Dose: 20 mg Documented By: ESTRELLA Dextrose (Dextrose 50% 50 Ml Syringe) 25 - 50 ml IV UD PRN; Protocol PRN Reason: Hypoglycemia Protocol Stop: 12/03/21 21:25 Last Admin: 11/03/21 23:03 Dose: 25 ml Documented By: GABINO Diltiazem HCl (Diltiazem Hcl 120 Mg Capcr) 120 mg PO DAILY LAKESHIA Stop: 12/04/21 08:59 Last Admin: 11/04/21 08:22 Dose: 120 mg Documented By: ESTRELLA Furosemide (Furosemide 40 Mg Tab) 40 mg PO DAILY LAKESHIA Stop: 12/04/21 08:59 Last Admin: 11/04/21 08:22 Dose: 40 mg Documented By: ESTRELLA Sodium Chloride 77 meq/ (Dextrose) 1,030.8 mls @ 200 mls/hr IV .Q5H10M LAKESHIA Stop: 12/03/21 15:44 Last Admin: 11/04/21 09:29 Dose: 200 mls/hr Documented By: Infusion: 11/04/21 09:29 Dose: 200 mls/hr Documented By: Admin: 11/04/21 04:35 Dose: 200 mls/hr Documented By: Infusion: 11/04/21 04:35 Dose: 200 mls/hr Documented By: Admin: 11/03/21 23:32 Dose: 200 mls/hr Documented By: Infusion: 11/03/21 23:23 Dose: 200 mls/hr Documented By: Infusion: 11/03/21 22:06 Dose: 200 mls/hr Documented By: Infusion: 11/03/21 19:27 Dose: 200 mls/hr Documented By: Admin: 11/03/21 17:00 Dose: 100 mls/hr Documented By: LEROY Ertapenem 1,000 mg/ Syringe 10 mls @ 2 mls/min IV DAILY LAKESHIA; Protocol Stop: 11/14/21 10:29 Last Admin: 11/04/21 10:52 Dose: 2 mls/min Documented By: ESTRELLA Magnesium Sulfate/Dextrose (Magnesium Sulfate / D5w) 1 gm in 100 mls @ 50 mls/hr IV ONE ONE Stop: 11/04/21 12:10 Last Admin: 11/04/21 10:51 Dose: 50 mls/hr Documented By: ESTRELLA Insulin Aspart (Insulin Aspart Per Unit) 0 units SC ACHS LAKESHIA Stop: 12/03/21 21:25 Last Admin: 11/04/21 08:57 Dose: 1 units Documented By: ESTRELLA Co-signed By: MARIAH Admin: 11/03/21 22:26 Dose: Not Given Documented By: GABINO Co-signed By: KIA Metoprolol Tartrate (Metoprolol Tartrate 50 Mg Tab) 50 mg PO BID [facility] Stop: 12/03/21 21:25 Last Admin: 11/04/21 08:22 Dose: 50 mg Documented By: Admin: 11/03/21 22:21 Dose: 50 mg Documented By: GABINO Miscellaneous (Carbohydrates For Hypoglycemia ) 15 - 30 gm PO UD PRN PRN Reason: Hypoglycemia Protocol Stop: 12/03/21 21:25 Last Admin: 11/03/21 22:23 Dose: 30 gm Documented By: Admin: 11/03/21 22:06 Dose: 30 gm Documented By: KIA Nystatin (Nystatin Powder 15gm Btl) 1 appln EXT QID PRN PRN Reason: Affected Skin Folds Stop: 12/03/21 21:25 Last Admin: 11/04/21 09:56 Dose: 1 appln Documented By: ESTRELLA Oxybutynin Chloride (Oxybutynin Chloride Xl 5 Mg Tabcr) 10 mg PO BID LAKESHIA Stop: 12/03/21 21:25 Last Admin: 11/04/21 08:23 Dose: 10 mg Documented By: Admin: 11/03/21 23:09 Dose: 10 mg Documented By: GABINO Potassium Chloride (Potassium Chloride 10 Meq Tabcr) 10 meq PO DAILY LAKESHIA Stop: 12/04/21 08:59 Last Admin: 11/04/21 08:23 Dose: 10 meq Documented By: ESTRELLA Potassium Chloride (Potassium Chloride Crtab 20 Meq Tabcr) 20 meq PO TID LAKESHIA Stop: 11/04/21 21:01 Last Admin: 11/04/21 10:51 Dose: 20 meq Documented By: ESTRELLA Warfarin Sodium (Warfarin Sod 7.5 Mg Tab) 7.5 mg PO Q3D@1600 LAKESHIA Stop: 12/04/21 15:59 Last Admin: 11/04/21 08:26 Dose: Not Given Documented By: TRJewels Discontinued Medications Dextrose (Dextrose 50% 50 Ml Syringe) Confirm Administered Dose 50 ml IV .STK- MED ONE Stop: 11/03/21 15:32 Last Admin: 11/03/21 15:34 Dose: 50 ml Documented By: LEROY Dextrose (Dextrose 50% 50 Ml Syringe) Confirm Administered Dose 50 ml IV .STK- MED ONE Stop: 11/03/21 17:25 Last Admin: 11/03/21 17:27 Dose: 50 ml Documented By: LEROY Dextrose (Dextrose 50% 50 Ml Syringe) 50 ml IV NOW ONE Stop: 11/03/21 17:30 Last Admin: 11/03/21 17:46 Dose: Not Given Documented By: LEROY Dextrose (Dextrose 50% 50 Ml Syringe) 50 ml IV NOW ONE Stop: 11/03/21 19:30 Last Admin: 11/03/21 19:10 Dose: 50 ml Documented By: AN Discharge Plan Visit Data Chief Complaint: Hypoglycemia Stated Complaint: HYPOGLYCEMIA ED Provider: Danny Lam Discharge Problem: Hypoglycemia, Weakness, Side effect of medication, Hypocalcemia Patient Disposition: Admitted As Inpatient Discharge Instructions Interventions: ED Discharge Assessment Last Done: 11/03/21 19:37
[2021-11-03] MEDS ORDERED: SODIUM CHLORIDE 0.9% 500 ML IV SCH (15:30)
[2021-11-03] MEDS ORDERED: DEXTROSE 50% 50 ML SYRINGE IV ONE ×4 (15:31→19:29)
--- NOTE | 2021-11-03 16:28 | XRay Report ---
XR chest 1V portable HISTORY: weakness COMPARISON: Chest 07/24/2021. FINDINGS: No pneumothorax. No pleural effusions. There are low lung volumes with mild elevation of th e right hemidiaphragm, unchanged. The heart remains enlarged. There is mild central pulmonary vascula r congestion without overt edema. Old, healed left-sided rib fractures. IMPRESSION: Cardiomegaly with mild central pulmonary vascular congestion without overt edema. ACT 112: Negative or not required by law. Electronically signed by: Henry Lou M.D. 11/03/2021 4:26 PM
[2021-11-03 16:52] LABS: Basophils # (auto) 0.02 K/uL (0-0.2); Basophils % (auto) 0.3 %; Eosinophils # (auto) 0.02 K/uL (0-0.50); Eosinophils % (auto) 0.3 %; Hematocrit (blood only) 36.3 % (40.1-51.0); Hemoglobin 11.3 g/dl (14.0-18.0); Immature Granulocytes # (auto) 0.07 K/uL (0.00-0.02); Immature Granulocytes % (auto) 0.9 %; Lymphocytes # (auto) 0.66 K/uL (1.2-3.4); Lymphocytes % (auto) 8.3 %; Mean Corpuscular Hemoglobin 27.8 pg (25.0-34.0); Mean Corpuscular Hgb Conc 31.1 g/dL (32.0-36.0); Mean Corpuscular Volume 89.4 fL (80.0-100.0); Mean Platelet Volume 9.2 fL (9.4-12.4); Monocytes # (auto) 0.47 K/uL (0.24-0.82); Monocytes % (auto) 5.9 %; Neutrophils # (auto) 6.67 K/uL (1.4-6.5); Neutrophils % (auto) 84.3 %; Platelet Count 256 K/uL (130-400); RDW Coefficient of Variation 16.4 % (11.5-14.5); RDW Standard Deviation 53.3 fL (36.4-46.3); Red Blood Count 4.06 M/uL (4.63-6.08); White Blood Count 7.91 K/ul (4.8-10.8)
[2021-11-03] MEDS: SODI CHLOR 2.5MEQ/ML 14.6% 77 MEQ in DEXTROSE 10% 1,000 ML IV SCH ×2 (17:00→23:32)
[2021-11-03 17:15] LABS: Albumin Globulin Ratio 0.7 (0.9-2); Albumin Level 2.5 gm/dl (3.4-5.0); BUN Creatinine Ratio 17.8 (10-20); Bilirubin,Total 0.4 mg/dl (0.2-1.0); Calcium 7.7 mg/dl (8.5-10.1); Creatinine Clr Calc Pharmacy 76.1 ml/min; Est GFR (African American) 50.8 ml/min; Est GFR (Non-African American) 43.9 ml/min; Globulin 3.5 gm/dl (2.5-4.0); Magnesium 1.7 mg/dl (1.7-2.4); Potassium 3.3 mmol/L (3.5-5.1)
[2021-11-03 17:19] LABS: INR 4.9 (0.9-1.1)
--- NOTE | 2021-11-03 17:50 | History & Physical Report ---
Date of Service November 03, 2021 Assessment & Plan (1) Hypoglycemia: Plan: Hank Monzon is a 66-year-old male with history of type 2 diabetes who presents with an episode of vision disturbance and weakness in the setting of a hypoglycemic episode to the 30s. 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 Continue dextrose with fluids. Once beginning to rise and Mary wearing off (5-8-hour half-life), discontinue dextrose. Has blood sugar increases if he rises above 180, may then start sliding scale insulin. At discharge recommend patient either be converted to renally adjusted metformin, or an alternative antilipemic with lower risk of hypoglycemia. If he is persistently hypoglycemic despite holding this medication would pursue fasting insulin levels at that time. Test glucose checks AC/at bedtime, and every 2 hours until levels stabilize No history of insulin use new CKD - Seees [facility] nephro Admitting creatinine 1.63, Baseline creatinine 1.41.7 Renally dose medications No acute KINJAL at this time CHF - ECHO 07/2021: Normal LV SF, EF 70% at that time, no valvular abnormalities appreciated Continue aspirin daily, continue statin, continue metoprolol Continue Lasix daily, no signs of acute overload Atrial fibrillation Continue rate control with diltiazem, metoprolol Continue anticoagulation with warfarin INR pending Ambulatory dysfunction Patient with progressive global weakness and deconditioning now limiting his activities, this was worse during his hypoglycemic episode but he notes he has had significant difficulty leading up to this. Would like to see PT OT PT/OT ordered No focal deficits RANDY Continue CPAP (2) Type 2 diabetes mellitus: (3) Recurrent deep vein thrombosis (DVT): (4) RANDY on CPAP: (5) Obstructive sleep apnea: (6) Generalized weakness: (7) Chronic diastolic CHF (congestive heart failure): History of Present Illness Primary Care Provider: Wanda Lantigua PA-C Hank Monzon is a 66-year-old male with a past medical history of CKD 3, atrial fibrillation, CHF, history of nephrostomy, history of Abhijit-en-Y bypass, morbid obesity, type 2 diabetes mellitus, DVT, RANDY, hydrocele, and recurrent cellulitis who was not feeling well and presented from home by EMS with a blood sugar of 38. Did improve following D10 administration. Patient has had progressive decline in ambulation and now has difficulty walking from his truck to home and would like to be evaluated for physical therapy. Tyhis morning didn't feel like imself. Tried to call neightbor but fumbled with phone. BSG 38. Never had problems with low blood sugar before. Had a normal dinner, some chicken gravy and potatoes with a hamburger before bed. [place] poorly immediately on waking up. Takes glimperide in the morning, took this around 8am then started feeling poor ~10am. No sweats, no abdominal pain. "just didn't feel myself, knew there was something off, was afraid I would fall." Has had progresive global decline in strength in the last few weeks. Did have blurry vision which lasted for a few hours, had a hard time focusing. No chest pain, no chest pressure, palpitations, no shortness of breath, no fevers/chills/sweats. Has had loose bowels since march due to miralax/activa use. Last A1c 6.1% in July 2021. Heel sore. Butt sore L posterior calf sore R intertrigo R buttock ulcer Medical History: Reviewed Medications: Reviewed Surgical History: Reviewed Allergies: Reviewed Social History: Reviewed Code Status: DNR/DNI ER evaluation: No leukocytosis Hemoglobin 11.3 from baseline of approximately 1012, normocytic Baseline creatinine 1.41.7, admitting creatinine 1.63 Initial glucose 51, 68 No transaminitis TSH normal CXR: Central pulmonary vascular congestion without overt edema, cardiomegaly Allergies Allergy/AdvReac Type Severity Reaction Status Date / Time No Known Allergies Allergy Verified 08/17/21 10:00 Home Medications Medication Instructions Recorded Confirmed Type ascorbic acid (vitamin C) 500 mg 500 mg PO DAILY 01/03/19 08/17/21 History chewable tablet (Vitamin C) calcium 650 mg-vitamin D3 12.5 1 tab PO DAILY 01/03/19 08/17/21 History mcg-vitamin K 40 mcg chewable tablet (Viactiv) cholecalciferol (vitamin D3) 10 400 unit PO DAILY 01/03/19 08/17/21 History mcg (400 unit) chewable tablet (Vitamin D3) fexofenadine 180 mg tablet 180 mg PO DAILY 01/03/19 08/17/21 History (Anju Allergy) pediatric multivitamin no.49 1 tab PO DAILY 01/03/19 08/17/21 History (Flintstones Gummies chewable tablet) aspirin 81 mg tablet,delayed 81 mg PO QAM #30 tabs 02/26/19 08/17/21 Rx release (Ecotrin Low Strength) oxybutynin chloride 10 mg 10 mg PO BID 07/24/21 08/17/21 History tablet,extended release 24 hr atorvastatin 20 mg tablet 20 mg PO DAILY #90 tabs 07/25/21 08/17/21 Rx diltiazem HCl 120 mg 120 mg PO DAILY #90 caps 07/25/21 08/17/21 Rx capsule,extended release 12 hr metoprolol tartrate 50 mg tablet 50 mg PO BID #180 tabs 07/25/21 08/17/21 Rx potassium chloride 10 mEq 10 meq PO DAILY #90 tabs 07/25/21 08/17/21 Rx tablet,extended release warfarin 7.5 mg tablet 7.5 mg PO .COMPLEX #90 tabs 07/25/21 08/17/21 Rx furosemide 20 mg tablet 40 mg PO DAILY #180 tabs 07/29/21 08/17/21 Rx miconazole nitrate 2 % topical 1 applic EXT BID #85 grams 07/29/21 08/17/21 Rx powder (Desenex) omeprazole 20 mg tablet,delayed 20 mg PO DAILY #30 tabs 08/15/21 08/17/21 Rx release glimepiride 2 mg tablet 2 mg PO DAILY #90 tabs 08/17/21 Rx Past Med/Surg History Medical History Anemia Atrial fibrillation Bilateral hydrocele CHF (congestive heart failure) CKD (chronic kidney disease), stage III Kidney stones Morbid obesity with BMI of 50.0-59.9, adult New onset atrial fibrillation RANDY on CPAP Pyelonephritis of left kidney Type 2 diabetes mellitus Urinary pain Surgical History History of nephrostomy History of Abhijit-en-Y gastric bypass Family History Other Family history non-contributory Social History Smoking Status: Never smoker Second Hand Exposure: No; Hx Alcohol Use: No Hx Substance Use: No Preferred Language: Hong Konger Communication Ability: Effective 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 NAD. Cooperative. HEENT: Atraumatic, normocephalic. Patient/hearing grossly intact Pulm: CTAB A&P. -wheezes, -rales, -rhonchi. Symmetrical chest rise. No increase in work of breathing. No respiratory distress. Cardiac: Irregularly irregular, -mrg. Radial pulses intact and symmetrical. Abdominal: Obese, soft, well-healed central abdominal scar, nontender, nondistended, soft. BS present. Skin: Pannus flap intertrigo present, right buttock ulcer present, left calf pressure ulcer present without spreading erythema. Extremities: Mild edema of lower extremities bilaterally. Sensation soft touch intact in hands and feet. Hip flexion, ankle dorsiflexion/plantarflexion intact bilaterally although limited somewhat by chronic hip pain on the left. 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 Results & Data Results & Data ([facility]) Vital Signs (Past 12 Hours) Vital Signs Temp Pulse Pulse Resp BP BP Pulse Ox 11/03/21 17:28 78 20 137/76 97 11/03/21 15:52 11/03/21 15:52 74 18 142/77 H 97 11/03/21 14:58 36.4 C L 79 20 133/75 96 O2 Del Method 11/03/21 17:28 Room Air 11/03/21 15:52 Room Air 11/03/21 15:52 11/03/21 14:58 Room Air PG Care Time/CCT Total # of Minutes Spent Total Time Spent with Patient: Total time spent is greater than 50% in coordination of care (as documented) at patient's floor/unit and/or counseling patient: Coding Level of Care Code 77371 Initial Inpt Care Lvl 2 Diagnoses Hypoglycemia E16.2 Type 2 diabetes mellitus E11.9 Diabetes mellitus halfway insulin use: without internet application 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 use Diabetes mellitus complication status: with kidney complications Diabetes mellitus complication detail: with chronic kidney disease Chronic kidney disease stage: stage 3 (moderate) Recurrent deep vein thrombosis (DVT) I82.409 RANDY on CPAP G47.33; Z99.89 Obstructive sleep apnea G47.33 Generalized weakness R53.1 Chronic diastolic CHF (congestive heart failure) I50.32 (1) Type 2 diabetes mellitus Diabetes mellitus halfway insulin use: without halfway use Diabetes mellitus complication status: with kidney complications Diabetes mellitus complication detail: with chronic kidney disease Chronic kidney disease stage: stage 3 (moderate)
[2021-11-03] MEDS ORDERED: PHARMACY GLYCEMIC MGMT CONSULT PRN (21:26)
[2021-11-03] MEDS ORDERED: NYSTATIN POWDER 15GM BTL EXT PRN (21:26)
[2021-11-03] MEDS ORDERED: ACETAMINOPHEN 325 MG TAB PO PRN (21:26)
[2021-11-03] MEDS ORDERED: GLUCOSE 40% GEL 15 GM TUBE PO PRN (21:26)
[2021-11-03] MEDS ORDERED: DEXTROSE 50% 50 ML SYRINGE IV PRN (21:26)
[2021-11-03] MEDS ORDERED: GLUCAGON FOR INJ 1 MG VIAL SQ PRN (21:26)
[2021-11-03] MEDS ORDERED: GLUCOSE 10 TAB/TUBE PO PRN (21:26)
[2021-11-03] MEDS ORDERED: ONDANSETRON INJ 2 MG/ML 2 ML VIAL IV PRN (21:26)
[2021-11-03] MEDS: CARBOHYDRATES FOR HYPOGLYCEMIA PO PRN ×2 (22:06→22:23)
[2021-11-03] MEDS: METOPROLOL TARTRATE 50 MG TAB PO SCH (22:21)
[2021-11-03] MEDS: INSULIN ASPART PER UNIT SC SCH (22:26)
[2021-11-03] MEDS: OXYBUTYNIN CHLORIDE XL 5 MG TABCR PO SCH (23:09)
[2021-11-04] MEDS: SODI CHLOR 2.5MEQ/ML 14.6% 77 MEQ in DEXTROSE 10% 1,000 ML IV SCH ×4 (04:35→19:51)
[2021-11-04 07:44] LABS: Appearance Urine Cloudy (Clear); Bacteria Urine Automated 4+ (Negative); Bilirubin Urine Negative (Negative); Blood Urine 3+ (Negative); Color Urine Yellow; Glucose Urine UA Negative (Negative); Ketones Urine Negative (Negative); Leukocyte Esterase Urine 2+ (Negative); Nitrite Urine Negative (Negative); Protein Urine 1+ (Negative); RBC Urine Automated >30 /hpf (0-4); Specific Gravity Urine 1.018 (1.000-1.030); Urobilinogen Urine Negative (Negative); WBC Urine Automated >30 /hpf (0-5)
[2021-11-04 07:45] LABS: INR 5.2 (0.9-1.1); Prothrombin Time 50.7 Seconds (9.0-12.0)
[2021-11-04 08:01] LABS: Estimated Average Glucose 105 mg/dl; Hemoglobin A1C 5.3 % (4.5-5.6)
[2021-11-04] MEDS: ASPIRIN 81 MG ECTAB PO SCH (08:22)
[2021-11-04] MEDS: FUROSEMIDE 40 MG TAB PO SCH (08:22)
[2021-11-04] MEDS: METOPROLOL TARTRATE 50 MG TAB PO SCH ×2 (08:22→22:44)
[2021-11-04] MEDS: dilTIAZem HCL 120 MG CAPCR PO SCH (08:22)
[2021-11-04] MEDS: POTASSIUM CHLORIDE 10 MEQ TABCR PO SCH (08:23)
[2021-11-04] MEDS: ATORVASTATIN 20 MG TAB PO SCH (08:23)
[2021-11-04] MEDS: OXYBUTYNIN CHLORIDE XL 5 MG TABCR PO SCH ×2 (08:23→22:43)
[2021-11-04] MEDS: INSULIN ASPART PER UNIT SC SCH ×4 (08:57→22:24)
[2021-11-04] MEDS ORDERED: MAGNESIUM SULFATE / D5W 1 GM/100 ML BAG IV ONE (10:11)
[2021-11-04] MEDS: POTASSIUM CHLORIDE CRTAB 20 MEQ TABCR PO SCH ×3 (10:51→22:24)
[2021-11-04] MEDS: ERTAPENEM SODIUM 1,000 MG in SYRINGE 0 ML IV SCH (10:52)
--- NOTE | 2021-11-04 13:22 | Pharmacy Report ---
Pharmacy Glycemic Short Note 2 - Date of Service November 04, 2021 - Glycemic Short BSG Results (Last 24 hours): 11/03/21 11/03/21 11/03/21 15:29 15:41 16:39 Glucose 68 L POC Glucose 43 L* 99 11/03/21 11/03/21 11/03/21 16:43 16:44 17:17 Glucose POC Glucose 64 L* 112 H 59 L* 11/03/21 11/03/21 11/03/21 17:22 18:19 19:02 Glucose POC Glucose 51 L* 82 56 L* 11/03/21 11/03/21 11/03/21 19:27 22:02 22:22 Glucose POC Glucose 76 26 L* 50 L* 11/03/21 11/03/21 11/04/21 22:41 23:32 01:40 Glucose POC Glucose 63 L* 129 H 108 H 11/04/21 11/04/21 11/04/21 03:54 05:59 08:00 Glucose POC Glucose 87 89 91 11/04/21 11/04/21 10:07 12:03 Glucose POC Glucose 97 104 H OUTPATIENT ANTIDIABETIC REGIMEN: * Glimepiride 2mg PO qAM * HbA1c: 5.3% (11/04/21) ASSESSMENT: * Mr Monzon is a 66yo diabetic M admitted with hypoglycemia, in the setting of glimepiride use. * Pt was initiated on IVF with dextrose. * Novolog added with a conservative correction factor in case pt were to become hyperglycemic. PLAN FOR INPATIENT GLYCEMIC CONTROL: * Hold outpatient oral diabetes medications * Basal insulin * none * Bolus insulin * NovoLog per scale ACHS or Q6hrs while NPO * Goal Range: Low 100 mg/dL - High 140 mg/dL * Correction Factor: 50 mg/dL/unit * Nutritional / Prandial insulin per carb ratio of 1 unit per 25 grams CHO consumed
--- NOTE | 2021-11-04 15:03 | CT Scan Report ---
CT OF THE ABDOMEN AND PELVIS WITHOUT CONTRAST CLINICAL HISTORY: UTI, h/o stones; evaluate for an obstructing stone. COMPARISON STUDY: CT of the abdomen and pelvis January 03, 2019. TECHNIQUE: Axial images of the abdomen and pelvis were obtained without IV contrast. Images were revi ewed in the axial, sagittal, and coronal planes. Automated exposure control was utilized for the toshia dy. A dose lowering technique was utilized adhering to the principles of ALARA. FINDINGS: Left pleural calcification is benign. This is unchanged. This exam is compromised by body w all contacting the gantry with resultant artifact. Portions of the bowel are not visualized due to ar tifact. There is moderate gaseous distention of the sigmoid colon. However, there is no convincing ev idence for an obstruction. Rectal wall thickening is noted. There is a moderate amount of poorly form ed stool within the colon. A large complex ventral hernia contains numerous small and large bowel loo ps, as before. No resultant bowel obstruction. Postoperative findings from gastric bypass are noted. No pneumatosis, free air or portal venous gas is present. There is no biliary ductal dilatation statu s post cholecystectomy. Calcified granulomas within the spleen are noted. Adrenal glands and pancreas are unremarkable. IVC filter is in place. There is no lymphadenopathy or ascites. Multiple left elpidio l calculi measure up to 5 mm. There is a 4 mm calculus within the lower pole of the right kidney. Luigi culus burden has significantly decreased since CT of January 03, 2019. No ureteral calculi are prese nt. There are no bladder calculi. The bladder mildly distended and extends into a large ventral herni a. There is marked cortical thinning of the mid to upper pole of the left kidney with chronic calycea l dilatation. This is likely chronic. There is no acute hydronephrosis. Bilateral urothelial thickeni ng has decreased since prior exam. This may be chronic. Old T11 compression fracture is noted. No acu te fracture within visualized skeletal structures. Severe osteoarthritis of both hips is noted. IMPRESSION: 1. Exam significantly compromised due to body wall contacting the gantry with resultant artifact. Lar ge partially visualized complex ventral hernia which contains numerous small and large bowel loops wi thout bowel obstruction. Moderate gaseous distention of the sigmoid colon without evidence for a rudi l obstruction. No volvulus. Follow-up KUB in one to 2 days is recommended for reassessment. 2. Bilateral nephrolithiasis. Significant decrease in calculus burden since CT of January 03, 2019. No ureteral calculi. No acute hydronephrosis. Chronic calyceal dilatation within the mid to upper raquel e of the left kidney with marked renal cortical thinning. Bilateral urothelial thickening, decreased compared to prior exam. This is likely chronic although pyelitis could appear similar. 3. Moderate amount of poorly formed stool within the colon. Mild rectal wall thickening. 4. Distended bladder which extends into the ventral hernia. ACT 112: Negative or not required by law. Electronically signed by: Darinel Singh M.D. 11/04/2021 3:02 PM
--- NOTE | 2021-11-04 15:29 | Electrocardiogram Report ---
Test Reason : Blood Pressure : / mmHG Vent. Rate : 075 BPM Atrial Rate : 068 BPM P-R Int : 000 ms QRS Dur : 142 ms QT Int : 418 ms P-R-T Axes : 000 -55 012 degrees QTc Int : 466 ms Poor data quality, interpretation may be adversely affected Atrial fibrillation Left axis deviation Right bundle branch block Inferior infarct (cited on or before 19-OCT-2000) Anterolateral infarct (cited on or before 19-OCT-2000) Abnormal ECG When compared with ECG of 06-APR-2021 18:24, No significant change was found Confirmed by Bairon Baldwin ([id number]) on 11/04/2021 3:28:45 PM Referred By: REFERRED SELF Confirmed By:Bairon Baldwin
[2021-11-04] MEDS ORDERED: WARFARIN SOD 7.5 MG TAB PO SCH (16:00)
--- NOTE | 2021-11-04 20:34 | Hospitalist Progress Note ---
Date of Service November 04, 2021 Assessment & Plan (1) Hypoglycemia: Plan: 2nd to sulfonylurea use in the setting of essentially resolved T2DM as Hba1c is <5.5%. Stress of UTI can also cause hypoglycemia. Cont dextrose infusion - can lower rate to 100cc/hr. Tomorrow am reduce rate to 50cc/hr, then ultimately off by tomorrow afternoon. Holding all PO DM meds. Treat UTI. Cont serial BSG checks. (2) UTI (urinary tract infection): Plan: 2nd GNR. review of EMR shows he had an ESBL e.coli infection in the past. thus, start with IV ertapenem 1gm daily and follow cx. CT a/p to r/o obstructing kidney stone contributing to UTI. (3) Supratherapeutic INR: Plan: Hold warfarin. repeat INR am. (4) Type 2 diabetes mellitus: Plan: resolved HbA1C is 5.3% previous a1c's were just about 6% stop ALL DM meds hypoglycemia - see #1 above (5) Kidney stones: Plan: check CT a/p - r/o obstructing stones has known h/o renal stones (6) Recurrent deep vein thrombosis (DVT): Plan: on coumadin but INR supratherapeutic - hold coumadin daily INR (7) RANDY on CPAP: Plan: cont CPAP from home (8) Generalized weakness: Plan: 2nd UTI 2nd hypoglycemia 2nd severe OA various joints 2nd deconditioning obtain PT/OT evals (9) Chronic diastolic CHF (congestive heart failure): Plan: compensated (10) History of Abhijit-en-Y gastric bypass: Plan: with complications lost 100# from his surgery (11) Atrial fibrillation: Plan: rates controlled cont BB holding coumadin as INR is high (12) CKD (chronic kidney disease), stage III: Plan: daily BMP (13) Hypokalemia: Plan: replaced repeat level am (14) Pressure ulcer: Plan: multiple locations - legs, feet, buttock region appreciate wound care consult and recs Plan patient lives alone mobility is VERY poor PT, OT evals may need rehab Admission and Anticipated Discharge Date Admission Date: November 03, 2021 Subjective patient feels better than yesterday appetite is normal denies feeling dizzy reports he is followed by [facility] for kidney stones had renal u/s a few months ago and was told that "all was well" he declined CT a/p initially, but ultimately was agreeable to having such here reports multiple wounds on buttocks, legs - present for months very limited mobility at home states he had gastric bypass years ago and lost about 100 pounds of weight denies any back or abd pain today does admit urine "looks dark and has an odor" Review of Systems Review of Systems: gen - no fevers or chills cv - no cp, no orthopnea pulm - no dyspnea GI - no nausea or emesis - no hematuria Physical Exam Physical Exam: gen - morbidly obese, NAD mouth - MMM neck - no obvious JVD heart - RR, irregular rhythm, s1 s2, no obvious murmur lungs - decreased BS bases, CTA b/l otherwise abd - soft NT ND BS+; multiple hernias present (at least 3) - all reducible ext - edema (chronic), pulses 2+ b/l skin - stasis changes b/l legs (shins); ulceration left distal leg just above above - mild drainage, no cellulitis Results & Data Results & Data ([facility]) Vital Signs (Past 12 Hours) Vital Signs Temp Pulse Resp BP Pulse Ox O2 Del Method 11/04/21 15:44 36.4 C L 75 18 119/73 96 Room Air Laboratory Results Laboratory Results - last 24 hr 11/03/21 11/03/21 11/03/21 22:02 22:22 22:41 PT INR POC Glucose 26 L* 50 L* 63 L* Estimat Average Glucose Hemoglobin A1c Urine Color Urine Appearance Urine pH Ur Specific [place] Urine Protein Urine Glucose (UA) Urine Ketones Urine Blood Urine Nitrite Urine Bilirubin Urine Urobilinogen Ur Leukocyte Esterase Urine WBC (Auto) Urine RBC (Auto) U Hyaline Cast (Auto) U Epithel Cells (Auto) Urine Bacteria (Auto) 11/03/21 11/04/21 11/04/21 23:32 01:40 03:54 PT INR POC Glucose 129 H 108 H 87 Estimat Average Glucose Hemoglobin A1c Urine Color Urine Appearance Urine pH Ur Specific [place] Urine Protein Urine Glucose (UA) Urine Ketones Urine Blood Urine Nitrite Urine Bilirubin Urine Urobilinogen Ur Leukocyte Esterase Urine WBC (Auto) Urine RBC (Auto) U Hyaline Cast (Auto) U Epithel Cells (Auto) Urine Bacteria (Auto) 09/16/22 09/16/22 09/16/22 05:59 06:36 06:36 PT 50.7 H INR 5.2 H POC Glucose 89 Estimat Average Glucose 105 Hemoglobin A1c 5.3 Urine Color Urine Appearance Urine pH Ur Specific [place] Urine Protein Urine Glucose (UA) Urine Ketones Urine Blood Urine Nitrite Urine Bilirubin Urine Urobilinogen Ur Leukocyte Esterase Urine WBC (Auto) Urine RBC (Auto) U Hyaline Cast (Auto) U Epithel Cells (Auto) Urine Bacteria (Auto) 11/04/21 11/04/21 11/04/21 07:10 08:00 10:07 PT INR POC Glucose 91 97 Estimat Average Glucose Hemoglobin A1c Urine Color Yellow Urine Appearance Cloudy A Urine pH 6.0 Ur Specific [place] 1.018 Urine Protein 1+ H Urine Glucose (UA) Negative Urine Ketones Negative Urine Blood 3+ H Urine Nitrite Negative Urine Bilirubin Negative Urine Urobilinogen Negative Ur Leukocyte Esterase 2+ H Urine WBC (Auto) >30 H Urine RBC (Auto) >30 H U Hyaline Cast (Auto) 1-5 U Epithel Cells (Auto) 5-10 H Urine Bacteria (Auto) 4+ H 11/04/21 11/04/21 12:03 17:06 PT INR POC Glucose 104 H 124 H Estimat Average Glucose Hemoglobin A1c Urine Color Urine Appearance Urine pH Ur Specific [place] Urine Protein Urine Glucose (UA) Urine Ketones Urine Blood Urine Nitrite Urine Bilirubin Urine Urobilinogen Ur Leukocyte Esterase Urine WBC (Auto) Urine RBC (Auto) U Hyaline Cast (Auto) U Epithel Cells (Auto) Urine Bacteria (Auto) PG Care Time/CCT Total # of Minutes Spent Total Time Spent with Patient: Total time spent is greater than 50% in coordination of care (as documented) at patient's floor/unit and/or counseling patient: Coding Level of Care Code 03643 Subseq Hosp Care Lvl 3 Diagnoses Hypoglycemia E16.2 UTI (urinary tract infection) N39.0 Supratherapeutic INR R79.1 Type 2 diabetes mellitus E11.9 Chronic kidney disease stage: stage 3 (moderate) Diabetes mellitus complication detail: with chronic kidney disease Diabetes mellitus complication status: with kidney complications Diabetes mellitus fci insulin use: without architecture department chair use Kidney stones N20.0 Recurrent deep vein thrombosis (DVT) I82.409 RANDY on CPAP G47.33; Z99.89 Generalized weakness R53.1 Chronic diastolic CHF (congestive heart failure) I50.32 History of Abhijit-en-Y gastric bypass Z98.84 Atrial fibrillation I48.91 CKD (chronic kidney disease), stage III N18.3 Hypokalemia E87.6 Pressure ulcer L89.90 (1) Type 2 diabetes mellitus Chronic kidney disease stage: stage 3 (moderate) Diabetes mellitus complication detail: with chronic kidney disease Diabetes mellitus complication status: with kidney complications Diabetes mellitus fci insulin use: without architecture department chair use
[2021-11-05] MEDS: SODI CHLOR 2.5MEQ/ML 14.6% 77 MEQ in DEXTROSE 10% 1,000 ML IV SCH ×2 (01:40→13:07)
[2021-11-05 06:49] LABS: BUN Creatinine Ratio 16.2 (10-20); Calcium 7.8 mg/dl (8.5-10.1); Creatinine Clr Calc Pharmacy 89.8 ml/min; Est GFR (African American) 63.3 ml/min; Est GFR (Non-African American) 54.6 ml/min; Potassium 3.4 mmol/L (3.5-5.1)
[2021-11-05 06:52] LABS: INR 3.7 (0.9-1.1); Prothrombin Time 36.7 Seconds (9.0-12.0)
[2021-11-05] MEDS: INSULIN ASPART PER UNIT SC SCH ×4 (08:38→22:07)
[2021-11-05] MEDS: OXYBUTYNIN CHLORIDE XL 5 MG TABCR PO SCH ×2 (08:39→20:10)
[2021-11-05] MEDS: METOPROLOL TARTRATE 50 MG TAB PO SCH ×2 (08:39→20:10)
[2021-11-05] MEDS: dilTIAZem HCL 120 MG CAPCR PO SCH (08:39)
[2021-11-05] MEDS: ATORVASTATIN 20 MG TAB PO SCH (08:40)
[2021-11-05] MEDS: ASPIRIN 81 MG ECTAB PO SCH (08:40)
[2021-11-05] MEDS: ERTAPENEM SODIUM 1,000 MG in SYRINGE 0 ML IV SCH (08:40)
[2021-11-05] MEDS: FUROSEMIDE 40 MG TAB PO SCH (08:40)
[2021-11-05] MEDS: POTASSIUM CHLORIDE 10 MEQ TABCR PO SCH (08:43)
[2021-11-05] MEDS ORDERED: POTASSIUM CHLORIDE CRTAB 20 MEQ TABCR PO STA (08:57)
[2021-11-05] MEDS ORDERED: WARFARIN SOD 2.5 MG TAB PO SCH (16:00)
[2021-11-05] MEDS ORDERED: WARFARIN SOD 1.25 MG TAB PO SCH (16:00)
--- NOTE | 2021-11-05 21:16 | Hospitalist Progress Note ---
Date of Service November 05, 2021 Assessment & Plan (1) Hypoglycemia: Plan: RESOLVED. 2nd to sulfonylurea use in the setting of essentially resolved T2DM as Hba1c is <5.5%. Stress of UTI can also cause hypoglycemia. Cont dextrose infusion - can lower rate to 50cc/hr. If BSGs remain normal throughout the day the drip can be stopped fully tonight. Holding all PO DM meds. Likely to NOT need any Rx given the low a1c. Treat UTI. Cont serial BSG checks. (2) UTI (urinary tract infection): Plan: 2nd GNR. review of EMR shows he had an ESBL e.coli infection in the past. thus, cont IV ertapenem 1gm daily and follow cx. day #[address] a/p shows kidney stones but NO obstruction by any of them. no Rx at this time. (3) Supratherapeutic INR: Plan: Cont to Hold warfarin. INR still >3. he admits he hadn't had an outpatient INR in quite some time. repeat INR am. (4) Type 2 diabetes mellitus: Plan: resolved HbA1C is 5.3% previous a1c's were just about 6% stop ALL DM meds hypoglycemia - see #1 above (5) Kidney stones: Plan: checked CT a/p - no obstructing stones (6) Recurrent deep vein thrombosis (DVT): Plan: on coumadin but INR supratherapeutic - hold coumadin daily INR (7) RANDY on CPAP: Plan: records reviewed - pulmonary notes from 2017 advised BIPAP I could not find any study report or clinic note showing the exact pressures recommended even his sleep study from 2017 does not list BIPAP pressures respiratory notes from the past have shown we have used BIPAP 15/5 during prior hospital stays - thus, will order those pressures he would benefit from referral back to pulmonary with [facility] after d/c to address this (8) Generalized weakness: Plan: 2nd UTI 2nd hypoglycemia 2nd severe OA various joints 2nd deconditioning PT/OT evals pending (9) Chronic diastolic CHF (congestive heart failure): Plan: compensated (10) History of Abhijit-en-Y gastric bypass: Plan: with complications however - lost 100# from his surgery (11) Atrial fibrillation: Plan: rates controlled cont BB holding coumadin as INR is high (12) CKD (chronic kidney disease), stage III: Plan: daily BMP but creatinine stable (13) Hypokalemia: Plan: replaced still slightly low - replete again bmp am (14) Pressure ulcer: Plan: multiple locations - legs, feet, buttock region appreciate wound care consult and recs Plan patient lives alone mobility is VERY poor PT, OT evals may need rehab Admission and Anticipated Discharge Date Admission Date: November 03, 2021 Subjective patient sitting in chair during the visit feels good today dextrose infusion weaned from 200cc/hr to 50cc/hr and BSGs remain normal eating well no breathing issues does ask for BIPAP for his RANDY - uses such faithfully at home voiding ok no new issues Review of Systems Review of Systems: gen - no fevers, good appetite cv - no chest pain pulm - no dyspnea GI - no nausea or emesis Physical Exam Physical Exam: gen - morbidly obese, NAD; sitting in chair comfortably mouth - MMM neck - no obvious JVD heart - RR, irregular rhythm, s1 s2, no obvious murmur lungs - decreased BS bases, CTA b/l otherwise abd - soft NT ND BS+; multiple hernias present (at least 3) - all reducible once again and nontender over these hernias ext - lymphedema (chronic), pulses 2+ b/l skin - stasis changes b/l legs (shins) psych - a/o x 3 Results & Data Results & Data ([facility]) Vital Signs (Past 12 Hours) Vital Signs Temp Pulse Resp BP Pulse Ox O2 Del Method FiO2 11/05/21 20:04 36.6 C 94 H 16 122/79 96 Room Air 11/05/21 19:32 21 11/05/21 14:34 36.6 C 73 16 97/60 L 96 Room Air 11/05/21 10:04 Room Air Laboratory Results Laboratory Results - last 24 hr 11/04/21 11/05/21 11/05/21 22:49 01:42 04:15 PT INR Sodium Potassium Chloride Carbon Dioxide Anion Gap BUN Creatinine Est Cr Clr Drug Dosing Est GFR ( Amer) Est GFR (Non-Af Amer) BUN/Creatinine Ratio Glucose POC Glucose 142 H 118 H 117 H Calcium 11/05/21 11/05/21 11/05/21 05:30 05:30 06:18 PT 36.7 H INR 3.7 H Sodium 138 Potassium 3.4 L Chloride 110 H Carbon Dioxide 24 Anion Gap 4 BUN 22 Creatinine 1.36 Est Cr Clr Drug Dosing 89.8 Est GFR ( Amer) 63.3 Est GFR (Non-Af Amer) 54.6 BUN/Creatinine Ratio 16.2 Glucose 108 H POC Glucose 90 Calcium 7.8 L 11/05/21 11/05/21 11/05/21 08:02 12:05 17:03 PT INR Sodium Potassium Chloride Carbon Dioxide Anion Gap BUN Creatinine Est Cr Clr Drug Dosing Est GFR ( Amer) Est GFR (Non-Af Amer) BUN/Creatinine Ratio Glucose POC Glucose 131 H 108 H 108 H Calcium Diagnostic Findings urine cx - GNR, >100,000 PG Care Time/CCT Total # of Minutes Spent Total Time Spent with Patient: Total time spent is greater than 50% in coordination of care (as documented) at patient's floor/unit and/or counseling patient: Coding Level of Care Code 64884 Subseq Hosp Care Lvl 2 Diagnoses Hypoglycemia E16.2 UTI (urinary tract infection) N39.0 Supratherapeutic INR R79.1 Type 2 diabetes mellitus E11.9 Chronic kidney disease stage: stage 3 (moderate) Diabetes mellitus complication detail: with chronic kidney disease Diabetes mellitus complication status: with kidney complications Diabetes mellitus care home insulin use: without terminal clerk use Kidney stones N20.0 Recurrent deep vein thrombosis (DVT) I82.409 RANDY on CPAP G47.33; Z99.89 Generalized weakness R53.1 Chronic diastolic CHF (congestive heart failure) I50.32 History of Abhijit-en-Y gastric bypass Z98.84 Atrial fibrillation I48.91 CKD (chronic kidney disease), stage III N18.3 Hypokalemia E87.6 Pressure ulcer L89.90 (1) Type 2 diabetes mellitus Chronic kidney disease stage: stage 3 (moderate) Diabetes mellitus complication detail: with chronic kidney disease Diabetes mellitus complication status: with kidney complications Diabetes mellitus care home insulin use: without terminal clerk use
[2021-11-06 05:53] LABS: INR 2.1 (0.9-1.1); Prothrombin Time 21.4 Seconds (9.0-12.0)
[2021-11-06 06:17] LABS: BUN Creatinine Ratio 12.8 (10-20); Calcium 8.2 mg/dl (8.5-10.1); Est GFR (African American) 56.7 ml/min; Est GFR (Non-African American) 48.9 ml/min; Potassium 3.9 mmol/L (3.5-5.1)
[2021-11-06] MEDS: INSULIN ASPART PER UNIT SC SCH ×4 (08:12→21:05)
[2021-11-06] MEDS: ASPIRIN 81 MG ECTAB PO SCH (09:14)
[2021-11-06] MEDS: dilTIAZem HCL 120 MG CAPCR PO SCH (09:14)
[2021-11-06] MEDS: ATORVASTATIN 20 MG TAB PO SCH (09:14)
[2021-11-06] MEDS: METOPROLOL TARTRATE 50 MG TAB PO SCH ×2 (09:15→21:06)
[2021-11-06] MEDS: FUROSEMIDE 40 MG TAB PO SCH (09:15)
[2021-11-06] MEDS: POTASSIUM CHLORIDE 10 MEQ TABCR PO SCH (09:16)
[2021-11-06] MEDS: OXYBUTYNIN CHLORIDE XL 5 MG TABCR PO SCH ×2 (09:16→21:06)
[2021-11-06] MEDS: ERTAPENEM SODIUM 1,000 MG in SYRINGE 0 ML IV SCH (09:20)
[2021-11-06] MEDS ORDERED: WARFARIN SOD 1.25 MG TAB PO SCH (16:00)
[2021-11-06] MEDS ORDERED: WARFARIN SOD 7.5 MG TAB PO ONE (16:00)
[2021-11-06] MEDS ORDERED: WARFARIN SOD 2.5 MG TAB PO SCH (16:00)
--- NOTE | 2021-11-06 22:38 | Hospitalist Progress Note ---
Date of Service November 06, 2021 Assessment & Plan (1) Hypoglycemia: Plan: RESOLVED. 2nd to sulfonylurea use in the setting of essentially resolved T2DM as Hba1c is <5.5%. Stress of UTI likely also contributed. STOPPED the dextrose infusion. STOPPED all PO DM meds. Likely to NOT need any Rx given the low a1c. Treat UTI. Cont serial BSG checks. (2) UTI (urinary tract infection): Plan: 2nd GNR. review of EMR shows he had an ESBL e.coli infection in the past. thus, cont IV ertapenem 1gm daily and follow cx. day #[address] a/p shows kidney stones but NO obstruction by any of them. no Rx at this time. (3) Supratherapeutic INR: Plan: Cont to Hold warfarin. INR now <3. He had been taking 7.5mg of coumadin, followed by 2 days of 3.75mg, then 7.5mg, and so forth. he admits he hadn't had an outpatient INR in quite some time. restart coumadin - give 7.5mg po x 1 today. repeat INR am. (4) Type 2 diabetes mellitus: Plan: resolved HbA1C is 5.3% previous a1c's were just about 6% stop ALL DM meds hypoglycemia - see #1 above (5) Kidney stones: Plan: checked CT a/p - no obstructing stones Follows with [facility] in [place] routinely for this issue (6) Recurrent deep vein thrombosis (DVT): Plan: on coumadin see above in #3 daily INR (7) RANDY on CPAP: Plan: records reviewed - pulmonary notes from 2017 advised BIPAP I could not find any study report or clinic note showing the exact pressures recommended even his sleep study from 2017 does not list BIPAP pressures respiratory notes from the past have shown we have used BIPAP 15/5 during prior hospital stays - thus, BIPAP ordered at 15/5 he had issues with leaking last night due to his gallego he would benefit from referral back to pulmonary with [facility] after d/c to address the RANDY and ensure he is on the right pressures, etc (8) Generalized weakness: Plan: 2nd UTI 2nd hypoglycemia 2nd severe OA various joints 2nd deconditioning PT/OT evals appreciated wants rehab post-d/c (9) Chronic diastolic CHF (congestive heart failure): Plan: compensated cont lasix 40mg daily (10) History of Abhijit-en-Y gastric bypass: Plan: with complications however - lost 100# from his surgery B12, folate, and Fe levels wnl in July 2021 (11) Atrial fibrillation: Plan: rates controlled cont BB see above re: coumadin (12) CKD (chronic kidney disease), stage III: Plan: daily BMP but creatinine has been stable (13) Hypokalemia: Plan: replaced now normal bmp am (14) Pressure ulcer: Plan: multiple locations - legs, feet, buttock region appreciate wound care consult and recs Plan patient lives alone mobility is VERY poor PT, OT evals appreciated -- rehab advised (3 hours) -- great candidate as he is motivated to get stronger await final urine cx results Admission and Anticipated Discharge Date Admission Date: November 03, 2021 Subjective when I walked into the room there was serosanguinous fluid on the floor he thought he had "bumped" his LLE and L foot on the rail of the bed the optifoam dressing had come off his distal left leg venous ulcer he had a new 1mm skin ulcer/opening on L 5th toe with blood on his sock from such he otherwise feels well eating well BSGs remain wnl off Dextrose infusion he wants to go to rehab post-d/c Review of Systems Review of Systems: gen - no fevers; eating well; good energy cv - no cp pulm - no dyspnea GI - no diarrhea Physical Exam Physical Exam: gen - morbidly obese, NAD; sitting in chair comfortably; pleasant mouth - MMM neck - no obvious JVD heart - RR, irregular rhythm, s1 s2, no obvious murmur lungs - decreased BS bases, CTA b/l without rales abd - soft NT ND BS+; multiple hernias present (3 large hernias) - all reducible once again and nontender ext - lymphedema (chronic), pulses 2+ b/l skin - stasis changes b/l legs (shins); multiple venous ulcers on legs covered with optifoams; 1mm opening on L 5th toe that had bled (new) -- I covered this with an optifoam psych - a/o x 3 Results & Data Results & Data ([facility]) Vital Signs (Past 12 Hours) Vital Signs Temp Pulse Resp BP BP Pulse Ox O2 Del Method 11/06/21 21:00 36.7 C 84 16 102/67 95 Room Air 11/06/21 14:42 36.4 C L 81 16 116/69 93 Room Air Laboratory Results Laboratory Results - last 24 hr 11/06/21 11/06/21 11/06/21 05:12 05:15 05:15 PT 21.4 H INR 2.1 H Sodium 139 Potassium 3.9 Chloride 109 H Carbon Dioxide 27 Anion Gap 3 BUN 19 Creatinine 1.49 H Est Cr Clr Drug Dosing 82.0 Est GFR ( Amer) 56.7 Est GFR (Non-Af Amer) 48.9 BUN/Creatinine Ratio 12.8 Glucose 79 POC Glucose 76 Calcium 8.2 L 11/06/21 11/06/21 11/06/21 08:06 12:20 17:02 PT INR Sodium Potassium Chloride Carbon Dioxide Anion Gap BUN Creatinine Est Cr Clr Drug Dosing Est GFR ( Amer) Est GFR (Non-Af Amer) BUN/Creatinine Ratio Glucose POC Glucose 87 105 H 112 H Calcium 11/06/21 20:22 PT INR Sodium Potassium Chloride Carbon Dioxide Anion Gap BUN Creatinine Est Cr Clr Drug Dosing Est GFR ( Amer) Est GFR (Non-Af Amer) BUN/Creatinine Ratio Glucose POC Glucose 116 H Calcium Diagnostic Findings urine cx - GNR, >100,000 CFU PG Care Time/CCT Total # of Minutes Spent Total Time Spent with Patient: Total time spent is greater than 50% in coordination of care (as documented) at patient's floor/unit and/or counseling patient: Coding Level of Care Code 55267 Subseq Hosp Care Lvl 2 Diagnoses Hypoglycemia E16.2 UTI (urinary tract infection) N39.0 Supratherapeutic INR R79.1 Type 2 diabetes mellitus E11.9 Chronic kidney disease stage: stage 3 (moderate) Diabetes mellitus complication detail: with chronic kidney disease Diabetes mellitus complication status: with kidney complications Diabetes mellitus terminal makeup operator insulin use: without half-way use Kidney stones N20.0 Recurrent deep vein thrombosis (DVT) I82.409 RANDY on CPAP G47.33; Z99.89 Generalized weakness R53.1 Chronic diastolic CHF (congestive heart failure) I50.32 History of Abhijit-en-Y gastric bypass Z98.84 Atrial fibrillation I48.91 CKD (chronic kidney disease), stage III N18.3 Hypokalemia E87.6 Pressure ulcer L89.90 (1) Type 2 diabetes mellitus Chronic kidney disease stage: stage 3 (moderate) Diabetes mellitus complication detail: with chronic kidney disease Diabetes mellitus complication status: with kidney complications Diabetes mellitus half-way insulin use: without half-way use
[2021-11-07 06:35] LABS: BUN Creatinine Ratio 12.2 (10-20); Creatinine Clr Calc Pharmacy 87.9 ml/min; Est GFR (African American) 61.6 ml/min; Est GFR (Non-African American) 53.2 ml/min; Potassium 3.5 mmol/L (3.5-5.1)
[2021-11-07 06:37] LABS: INR 1.7 (0.9-1.1); Prothrombin Time 17.7 Seconds (9.0-12.0)
[2021-11-07] MEDS: METOPROLOL TARTRATE 50 MG TAB PO SCH ×2 (08:13→21:56)
[2021-11-07] MEDS: ERTAPENEM SODIUM 1,000 MG in SYRINGE 0 ML IV SCH (08:13)
[2021-11-07] MEDS: dilTIAZem HCL 120 MG CAPCR PO SCH (08:14)
[2021-11-07] MEDS: ASPIRIN 81 MG ECTAB PO SCH (08:14)
[2021-11-07] MEDS: OXYBUTYNIN CHLORIDE XL 5 MG TABCR PO SCH ×2 (08:15→21:57)
[2021-11-07] MEDS: FUROSEMIDE 40 MG TAB PO SCH (08:15)
[2021-11-07] MEDS: ATORVASTATIN 20 MG TAB PO SCH (08:15)
[2021-11-07] MEDS: INSULIN ASPART PER UNIT SC SCH ×4 (08:19→21:55)
[2021-11-07] MEDS: POTASSIUM CHLORIDE CRTAB 20 MEQ TABCR PO SCH (08:56)
[2021-11-07] MEDS: HEPARIN SOD 5,000 UNIT/0.5 ML VIAL SQ SCH ×2 (13:59→21:58)
[2021-11-07] MEDS ORDERED: WARFARIN SOD 7.5 MG TAB PO ONE (16:00)
--- NOTE | 2021-11-07 19:07 | Hospitalist Progress Note ---
Date of Service November 07, 2021 Assessment & Plan (1) Hypoglycemia: Plan: PRESENT ON ADMISSION -- RESOLVED. 2nd to sulfonylurea use in the setting of essentially resolved T2DM as Hba1c is <5.5%. Stress of UTI likely also contributed. STOPPED the dextrose infusion. STOPPED all PO DM meds. Likely to NOT need any Rx given the low a1c but cont to check his BSGs. Treat UTI. Cont serial BSG checks. (2) UTI (urinary tract infection): Plan: 2nd ESBL e.coli infection. cont IV ertapenem 1gm daily - day #4 today. plan 7-day course. CT a/p shows kidney stones but NO obstruction or ureteral stones. no symptoms to suggest prostatitis. (3) Supratherapeutic INR: Plan: PRESENT ON ADMISSION. Warfarin initially held until INR fell to <3. He had been taking 7.5mg of coumadin, followed by 2 days of 3.75mg, then 7.5mg, and so forth -- at home. he admits he hadn't had an outpatient INR in quite some time. coumadin 7.5mg po x 1 on 11/06. will redose 7.5mg po x 1 today. repeat INR am. attending physician assuming his care --- will need coumadin to be reordered on 11/08. (4) Type 2 diabetes mellitus: Plan: resolved HbA1C is 5.3% previous a1c's were just about 6% stopped ALL DM meds hypoglycemia - see #1 above (5) Kidney stones: Plan: checked CT a/p - no obstructing stones Follows with [facility] in [place] routinely for this issue (6) Recurrent deep vein thrombosis (DVT): Plan: on coumadin see above in #3 daily INR INR today is now 1.7 --- coumadin has been resumed in the last 48 hours however - while awaiting INR to become therapeutic again -- start heparin 7500 units TID (7) RANDY on CPAP: Plan: records reviewed - pulmonary notes from 2017 advised BIPAP I could not find any study report or clinic note showing the exact pressures recommended even his sleep study from 2017 does not list BIPAP pressures respiratory notes from the past have shown we have used BIPAP 15/5 during prior hospital stays - thus, BIPAP ordered at 15/5 he had issues with leaking last night due to his gallego he would benefit from referral back to pulmonary with [facility] after d/c to address the RANDY and ensure he is on the right pressures, etc (8) Generalized weakness: Plan: 2nd UTI 2nd hypoglycemia 2nd severe OA various joints 2nd deconditioning PT/OT evdomenico appreciated wants rehab post-d/c (9) Chronic diastolic CHF (congestive heart failure): Plan: compensated cont lasix 40mg daily (10) History of Abhijit-en-Y gastric bypass: Plan: with complications however - lost 100# from his surgery B12, folate, and Fe levels wnl in July 2021 (11) Atrial fibrillation: Plan: rates controlled cont BB see above re: coumadin (12) CKD (chronic kidney disease), stage III: Plan: daily BMP but creatinine has been stable (13) Hypokalemia: Plan: replaced now normal bmp am (14) Pressure ulcer: Plan: multiple locations - legs, feet, buttock region appreciate wound care consult and recs (15) Morbid obesity with BMI of 45.0-49.9, adult: Plan: BMI 47 Plan patient lives alone mobility is VERY poor PT, OT alex appreciated -- rehab advised (3 hours) -- great candidate as he is motivated to get stronger referrals for rehab made by case management Admission and Anticipated Discharge Date Admission Date: November 03, 2021 Subjective pt without any significant complaints today feeling good still interested in rehab good appetite has been off dextrose infusion since yesterday with stable BSGs patient does state, however, that when he tries to have a BM he is only passing flatus feels constipated; requests miralax Review of Systems Review of Systems: gen - no fevers cv - no cp pulm - no dyspnea GI - no abd pain skin - no issues with ulcers Physical Exam Physical Exam: gen - morbidly obese, NAD; sitting in chair mouth - MMM neck - no obvious JVD heart - RR, irregular rhythm, s1 s2, no obvious murmur lungs - decreased BS bases, CTA b/l without rales abd - soft NT ND BS+; multiple hernias present (3 large hernias) - all reducible ext - lymphedema unchanged; pulses 2+ b/l skin - stasis changes b/l legs (shins); multiple venous ulcers on legs covered with optifoams psych - a/o x 3 Results & Data Results & Data ([facility]) Vital Signs (Past 12 Hours) Vital Signs Temp Pulse Resp BP BP Pulse Ox O2 Del Method 11/07/21 15:30 36.6 C 81 16 107/67 94 Room Air 11/07/21 10:52 Room Air 11/07/21 08:28 36.4 C L 84 16 122/67 95 Room Air Laboratory Results Laboratory Results - last 24 hr 11/06/21 11/07/21 11/07/21 20:22 05:57 05:57 PT 17.7 H INR 1.7 H Sodium 139 Potassium 3.5 Chloride 109 H Carbon Dioxide 26 Anion Gap 4 BUN 17 Creatinine 1.39 Est Cr Clr Drug Dosing 87.9 Est GFR ( Amer) 61.6 Est GFR (Non-Af Amer) 53.2 BUN/Creatinine Ratio 12.2 Glucose 81 POC Glucose 116 H Calcium 8.0 L 11/07/21 11/07/21 11/07/21 08:08 11:50 16:48 PT INR Sodium Potassium Chloride Carbon Dioxide Anion Gap BUN Creatinine Est Cr Clr Drug Dosing Est GFR ( Amer) Est GFR (Non-Af Amer) BUN/Creatinine Ratio Glucose POC Glucose 79 112 H 112 H Calcium PG Care Time/CCT Total # of Minutes Spent Total Time Spent with Patient: Total time spent is greater than 50% in coordination of care (as documented) at patient's floor/unit and/or counseling patient: Coding Level of Care Code 39214 Subseq Hosp Care Lvl 2 Diagnoses Hypoglycemia E16.2 UTI (urinary tract infection) N39.0 Supratherapeutic INR R79.1 Type 2 diabetes mellitus E11.9 Chronic kidney disease stage: stage 3 (moderate) Diabetes mellitus complication detail: with chronic kidney disease Diabetes mellitus complication status: with kidney complications Diabetes mellitus terminal makeup operator insulin use: without fci use Kidney stones N20.0 Recurrent deep vein thrombosis (DVT) I82.409 RANDY on CPAP G47.33; Z99.89 Generalized weakness R53.1 Chronic diastolic CHF (congestive heart failure) I50.32 History of Abhijit-en-Y gastric bypass Z98.84 Atrial fibrillation I48.91 CKD (chronic kidney disease), stage III N18.3 Hypokalemia E87.6 Pressure ulcer L89.90 Morbid obesity with BMI of 45.0-49.9, adult E66.01; Z68.42 (1) Type 2 diabetes mellitus Chronic kidney disease stage: stage 3 (moderate) Diabetes mellitus complication detail: with chronic kidney disease Diabetes mellitus complication status: with kidney complications Diabetes mellitus terminal makeup operator insulin use: without fci use
[2021-11-08] MEDS: HEPARIN SOD 5,000 UNIT/0.5 ML VIAL SQ SCH (05:28)
[2021-11-08 06:59] LABS: INR 1.9 (0.9-1.1)
[2021-11-08 07:09] LABS: BUN Creatinine Ratio 12.5 (10-20); Creatinine Clr Calc Pharmacy 89.8 ml/min; Est GFR (African American) 63.3 ml/min; Est GFR (Non-African American) 54.6 ml/min; Potassium 3.7 mmol/L (3.5-5.1)
--- NOTE | 2021-11-08 08:53 | Hospitalist Progress Note ---
Date of Service November 08, 2021 Assessment & Plan (1) Hypoglycemia: Plan: PRESENT ON ADMISSION -- RESOLVED. 2nd to sulfonylurea use in the setting of essentially resolved T2DM as Hba1c is <5.5%. Stress of ESBL E Coli UTI likely also contributed. STOPPED the dextrose infusion. STOPPED all PO DM meds. Likely to NOT need any Rx given the low a1c but cont to check his BSGs. Treat UTI. stable serial BSG checks. (2) UTI (urinary tract infection): Plan: 2nd ESBL e.coli infection. cont IV ertapenem 1gm daily - plan 7-day course. LD 11/10 CT a/p shows kidney stones but NO obstruction or ureteral stones. no symptoms to suggest prostatitis. (3) Supratherapeutic INR: Plan: PRESENT ON ADMISSION. Warfarin initially INR now 1.9 He had been taking 7.5mg of coumadin, followed by 2 days of 3.75mg, then 7.5mg, and so forth -- at home. he admits he hadn't had an outpatient INR in quite some time. coumadin 7.5mg po x 1 on will use coumadin 5 mg a day and follow, discussed DOAC use (4) Type 2 diabetes mellitus: Plan: resolved HbA1C is 5.3% previous a1c's were just about 6% stopped ALL DM meds hypoglycemia - see #1 above (5) Kidney stones: Plan: checked CT a/p - no obstructing stones Follows with [facility] in [place] routinely for this issue (6) Recurrent deep vein thrombosis (DVT): Plan: resume coumadin, follow INR (7) RANDY on CPAP: Plan: records reviewed - pulmonary notes from 2017 advised BIPAP sleep study from 2017 does not list BIPAP pressures respiratory notes from the past have shown we have used BIPAP 15/5 during prior hospital stays - thus, BIPAP ordered at 15/5 he had issues with leaking last night due to his gallego he would benefit from referral back to pulmonary with [facility] after d/c to address the RANDY and ensure he is on the right pressures, etc (8) Generalized weakness: Plan: 2nd UTI 2nd hypoglycemia 2nd severe OA various joints 2nd deconditioning PT/OT evals appreciated wants rehab post-d/c (9) Chronic diastolic CHF (congestive heart failure): Plan: compensated cont lasix 40mg daily (10) History of Abhijit-en-Y gastric bypass: Plan: with complications however - lost 100# from his surgery B12, folate, and Fe levels wnl in July 2021 (11) Atrial fibrillation: Plan: rates controlled cont BB see above re: coumadin (12) CKD (chronic kidney disease), stage III: Plan: daily BMP but creatinine has been stable (13) Hypokalemia: Plan: replaced now normal (14) Pressure ulcer: Plan: multiple locations - legs, feet, buttock region appreciate wound care consult and recs (15) Morbid obesity with BMI of 45.0-49.9, adult: Plan: BMI 47 Plan patient lives alone mobility is VERY poor PT, OT evals appreciated -- rehab advised (3 hours) -- great candidate as he is motivated to get stronger referrals for rehab made by case management tentatively to rehab this week Admission and Anticipated Discharge Date Admission Date: November 03, 2021 Subjective pt is in no distress is still with liquid bowel movement but according to patient is better than last few months and not distressing to him. Review of Systems Review of Systems: Mild distress and fatigue no headache, no visual changes no speech or swallowing issues no chest pain, pressure or palpitations no shortness of breath, cough or wheezes no abdominal pain, persistent distension and audible grumblings no dysuria, hematuria or frequency no focal joint pain, chronic lower extremity swelling, chronic changes no back pain, CVA tenderness or radicular pain chornic skin changes no focal signs of weakness or numbness or altered sensation no complaints of anxiety or depression.. Physical Exam Physical Exam: The patient appeared obese with large abdominal hernia Vital signs as documented. Head exam is normocephalic atraumatic Neck is without JVD, thyromegaly, or carotid bruits. Lungs are clear to auscultation, no focal loss of breath sounds Cardiac exam, Rhythm is regular.. No murmurs, rubs or gallops. Abdominal exam reveals normal bowel sounds, soft non tender, no masses Extremities are chronically edematous Neurologic exam is alert and oriented, no focal loss of strength or sensation Skin is without bruises or rashes Psychologically is without concerns for anxiety or depression.. Results & Data Results & Data ([facility]) Vital Signs (Past 12 Hours) Vital Signs Temp Pulse Resp BP Pulse Ox Pulse Ox O2 Del Method 11/08/21 07:42 97.9 F 98 H 16 125/74 95 Room Air 11/07/21 21:55 96 11/07/21 21:55 Room Air 11/07/21 21:48 98.1 F 99 H 16 122/81 96 Room Air O2 Del Method 11/08/21 07:42 11/07/21 21:55 Room Air 11/07/21 21:55 11/07/21 21:48 PG Care Time/CCT Total # of Minutes Spent Total Time Spent with Patient: Total time spent is greater than 50% in coordination of care (as documented) at patient's floor/unit and/or counseling patient: Coding Level of Care Code 00029 Subseq Hosp Care Lvl 2 Diagnoses Hypoglycemia E16.2 UTI (urinary tract infection) N39.0 Supratherapeutic INR R79.1 Type 2 diabetes mellitus E11.9 Chronic kidney disease stage: stage 3 (moderate) Diabetes mellitus complication detail: with chronic kidney disease Diabetes mellitus complication status: with kidney complications Diabetes mellitus oysterman insulin use: without skilled nursing use Kidney stones N20.0 Recurrent deep vein thrombosis (DVT) I82.409 RANDY on CPAP G47.33; Z99.89 Generalized weakness R53.1 Chronic diastolic CHF (congestive heart failure) I50.32 History of Abhijit-en-Y gastric bypass Z98.84 Atrial fibrillation I48.91 CKD (chronic kidney disease), stage III N18.3 Hypokalemia E87.6 Pressure ulcer L89.90 Morbid obesity with BMI of 45.0-49.9, adult E66.01; Z68.42 (1) Type 2 diabetes mellitus Chronic kidney disease stage: stage 3 (moderate) Diabetes mellitus complication detail: with chronic kidney disease Diabetes mellitus complication status: with kidney complications Diabetes mellitus oysterman insulin use: without skilled nursing use
[2021-11-08] MEDS: dilTIAZem HCL 120 MG CAPCR PO SCH (09:20)
[2021-11-08] MEDS: METOPROLOL TARTRATE 50 MG TAB PO SCH ×2 (09:20→20:31)
[2021-11-08] MEDS: ASPIRIN 81 MG ECTAB PO SCH (09:20)
[2021-11-08] MEDS: OXYBUTYNIN CHLORIDE XL 5 MG TABCR PO SCH ×2 (09:20→20:31)
[2021-11-08] MEDS: ATORVASTATIN 20 MG TAB PO SCH (09:20)
[2021-11-08] MEDS: FUROSEMIDE 40 MG TAB PO SCH (09:20)
[2021-11-08] MEDS: POTASSIUM CHLORIDE CRTAB 20 MEQ TABCR PO SCH (09:21)
[2021-11-08] MEDS: INSULIN ASPART PER UNIT SC SCH ×4 (09:26→21:24)
[2021-11-08] MEDS: POLYETHYLENE (MIRALAX) 17 GM PACK PO SCH (09:27)
[2021-11-08] MEDS: ERTAPENEM SODIUM 1,000 MG in SYRINGE 0 ML IV SCH (09:33)
[2021-11-08] MEDS ORDERED: WARFARIN SOD 5 MG TAB PO SCH (16:00)
[2021-11-09 07:47] LABS: INR 2.1 (0.9-1.1); Prothrombin Time 21.6 Seconds (9.0-12.0)
[2021-11-09] MEDS: INSULIN ASPART PER UNIT SC SCH ×2 (09:08→12:57)
[2021-11-09] MEDS: ATORVASTATIN 20 MG TAB PO SCH (09:14)
[2021-11-09] MEDS: ASPIRIN 81 MG ECTAB PO SCH (09:14)
[2021-11-09] MEDS: dilTIAZem HCL 120 MG CAPCR PO SCH (09:16)
[2021-11-09] MEDS: FUROSEMIDE 40 MG TAB PO SCH (09:17)
[2021-11-09] MEDS: OXYBUTYNIN CHLORIDE XL 5 MG TABCR PO SCH (09:17)
[2021-11-09] MEDS: METOPROLOL TARTRATE 50 MG TAB PO SCH (09:17)
[2021-11-09] MEDS: POLYETHYLENE (MIRALAX) 17 GM PACK PO SCH (09:18)
[2021-11-09] MEDS: POTASSIUM CHLORIDE CRTAB 20 MEQ TABCR PO SCH (09:18)
[2021-11-09] MEDS: ERTAPENEM SODIUM 1,000 MG in SYRINGE 0 ML IV SCH (10:11)
--- NOTE | 2021-11-09 19:38 | Discharge Summary ---
Date of Service November 09, 2021 Admission HPI Per Admitting Provider Hank Monzon is a 66-year-old male with a past medical history of CKD 3, atrial fibrillation, CHF, history of nephrostomy, history of Abhijit-en-Y bypass, morbid obesity, type 2 diabetes mellitus, DVT, RANDY, hydrocele, and recurrent cellulitis who was not feeling well and presented from home by EMS with a blood sugar of 38. Did improve following D10 administration. Patient has had progressive decline in ambulation and now has difficulty walking from his truck to home and would like to be evaluated for physical therapy. Tyhis morning didn't feel like imself. Tried to call [facility] but fumbled with phone. BSG 38. Never had problems with low blood sugar before. Had a normal dinner, some chicken gravy and potatoes with a hamburger before bed. [place] poorly immediately on waking up. Takes glimperide in the morning, took this around 8am then started feeling poor ~10am. No sweats, no abdominal pain. "just didn't feel myself, knew there was something off, was afraid I would fall." Has had progresive global decline in strength in the last few weeks. Did have blurry vision which lasted for a few hours, had a hard time focusing. No chest pain, no chest pressure, palpitations, no shortness of breath, no fevers/chills/sweats. Has had loose bowels since march due to miralax/activa use. Last A1c 6.1% in July 2021. Heel sore. Butt sore L posterior calf sore R intertrigo R buttock ulcer Medical History: Reviewed Medications: Reviewed Surgical History: Reviewed Allergies: Reviewed Social History: Reviewed Code Status: DNR/DNI ER evaluation: No leukocytosis Hemoglobin 11.3 from baseline of approximately 1012, normocytic Baseline creatinine 1.41.7, admitting creatinine 1.63 Initial glucose 51, 68 No transaminitis TSH normal CXR: Central pulmonary vascular congestion without overt edema, cardiomegaly Principal Diagnosis hypoglycemia esbl uti poa morbid obesity chronic severe ventral abdominal hernia without herniation chronic venous stasis LE Discharge Exam The patient appeared stable Vital signs as documented. Lungs are clear to auscultation and appear unlabored Cardiac exam, Rhythm is regular.. No murmurs, rubs or gallops. Discharge Data Allergies Allergy/AdvReac Type Severity Reaction Status Date / Time No Known Allergies Allergy Verified 11/03/21 20:02 Consultations 11/03/21 17:41 ED Decision to Admit Stat Ordered Studies 11/04/21 10:13 CT stones [CT abd pelvis wo con] Routine Hospital Course (1) Hypoglycemia: PRESENT ON ADMISSION -- RESOLVED. 2nd to sulfonylurea use in the setting of essentially resolved T2DM as Hba1c is <5.5%. Stress of ESBL E Coli UTI likely also contributed. STOPPED the dextrose infusion. STOPPED all PO DM meds. Likely to NOT need any Rx given the low a1c but cont to check his BSGs. Treat UTI. stable serial BSG checks. (2) UTI (urinary tract infection): 2nd ESBL e.coli infection. cont IV ertapenem 1gm daily - plan 7-day course. LD11/09 CT a/p shows kidney stones but NO obstruction or ureteral stones. no symptoms to suggest prostatitis. (3) Supratherapeutic INR: PRESENT ON ADMISSION. Warfarin initially INR now 2.1 He had been taking 7.5mg of coumadin, followed by 2 days of 3.75mg, then 7.5mg, and so forth -- at home. he admits he hadn't had an outpatient INR in quite some time. coumadin 7.5mg po x 1 on will use coumadin 5 mg a day and follow, discussed DOAC use (4) Type 2 diabetes mellitus: resolved HbA1C is 5.3% previous a1c's were just about 6% stopped ALL DM meds hypoglycemia - see #1 above (5) Kidney stones: checked CT a/p - no obstructing stones Follows with [facility] in [place] routinely for this issue (6) Recurrent deep vein thrombosis (DVT): resume coumadin, follow INR (7) RANDY on CPAP: records reviewed - pulmonary notes from 2017 advised BIPAP sleep study from 2017 does not list BIPAP pressures respiratory notes from the past have shown we have used BIPAP 15/5 during prior hospital stays - thus, BIPAP ordered at 15/5 he had issues with leaking last night due to his gallego he would benefit from referral back to pulmonary with [facility] after d/c to address the RANDY and ensure he is on the right pressures, etc (8) Generalized weakness: 2nd UTI 2nd hypoglycemia 2nd severe OA various joints Janonditioning (9) Chronic diastolic CHF (congestive heart failure): compensated cont lasix 40mg daily (10) History of Abhijit-en-Y gastric bypass: with complications however - lost 100# from his surgery B12, folate, and Fe levels wnl in July 2021 (11) Atrial fibrillation: rates controlled cont BB see above re: coumadin (12) CKD (chronic kidney disease), stage III: daily BMP but creatinine has been stable (13) Hypokalemia: replaced now normal (14) Pressure ulcer: multiple locations - legs, feet, buttock region appreciate wound care consult and recs (15) Morbid obesity with BMI of 45.0-49.9, adult: BMI 47 Plan patient lives alone mobility is VERY poor PT, OT evals appreciated -- rehab advised (3 hours) -- Total Time Total Time Spent Total Time Spent (In Minutes): It required greater than 30 minutes to prepare this patient for discharge Discharge Plan Discharge Items Patient Disposition: Transfer Snf Fac Reason For Visit: HYPOGLYCEMIA Discharge Diagnosis: hypoglycemia morbid obesity chronic venous stasis chronic abdominal ventral hernia chronic diarrhea Activity: Per Instructions section Activity Comment: PT/OT eval and treat Non-emergency contact: Primary Care Provider Call non-emergency contact if: your symptoms worsen Follow-up/Referrals: Wanda Lantigua PA-C [Primary Care Provider] - Diet: Carb Consistent or DM2 and Low Sodium (2gm) Addtl Attending Provider Instructions: elevate legs when sitting consider wound care evaluation watch blood glucose however pt was hypoglycemic on presentation pt will need close attention to his INR as his coumadin dose is in flux, considertion of DOAC but will need to explore cost, would recommned INR at least and sunday and then judgment of next test based on those lab interpretation Pending Studies at Discharge: No Stand-Alone Forms: My [facility] Skilled Items Patient informed of condition?: Yes DNR: Yes Discharge Level of Care: Skilled Communicable Disease: No Discharge Prognosis: Stable Lines: None Urinary Catheter: Yes Medications and DC Order Prescriptions: New warfarin 5 mg Tablet 5 mg PO DAILY@1600 Qty: 30 0RF Continued atorvastatin 20 mg tablet 20 mg PO DAILY Qty: 90 3RF diltiazem HCl 120 mg capsule,extended release 12 hr 120 mg PO DAILY Qty: 90 3RF metoprolol tartrate 50 mg tablet 50 mg PO BID Qty: 180 3RF potassium chloride 10 mEq tablet extended release 10 meq PO DAILY Qty: 90 3RF omeprazole 20 mg tablet,delayed release (DR/EC) 20 mg PO DAILY Qty: 30 5RF fexofenadine [Anju Allergy] 180 mg Tablet 180 mg PO DAILY ascorbic acid (vitamin C) [Vitamin C] 500 mg Tablet,Chewable 500 mg PO DAILY cholecalciferol (vitamin D3) [Vitamin D3] 400 unit Tablet,Chewable 400 unit PO DAILY calcium-vitamin D3-vitamin K [Viactiv] 650 mg-12.5 mcg-40 mcg Tablet,Chewable 1 tab PO DAILY aspirin [Ecotrin Low Strength] 81 mg Tablet,Delayed Release (Dr/Ec) 81 mg PO QAM Qty: 30 3RF oxybutynin chloride 10 mg tablet extended release 24 hr 10 mg PO BID miconazole nitrate [Desenex] 2 % Powder 1 applic EXT BID Qty: 85 0RF Rx Instructions: groin furosemide 20 mg tablet 40 mg PO DAILY Qty: 180 3RF Rx Instructions: take 1-2 tablets, po daily multivitamin Tablet 1 tab PO DAILY polyethylene glycol 3350 [Miralax] 17 gram/dose Powder 17 g PO DAILY Activa Yogurt 16 oz PO DAILY Discontinued warfarin 7.5 mg tablet 7.5 mg PO .COMPLEX Qty: 90 3RF Protocol: Dose Management Condition: Sunday (Week One) Dose/Route: 7.5 mg Instruction: 1 x 7.5 mg tablet Condition: Sunday Dose/Route: 3.75 mg Instruction: 0.5 x 7.5 mg tablets Condition: Sunday Dose/Route: 3.75 mg Instruction: 0.5 x 7.5 mg tablets Condition: Sunday Dose/Route: 7.5 mg Instruction: 1 x 7.5 mg tablet Condition: Dose/Route: 3.75 mg Instruction: 0.5 x 7.5 mg tablets Condition: Sunday Dose/Route: 3.75 mg Instruction: 0.5 x 7.5 mg tablets Condition: Sunday Dose/Route: 7.5 mg Instruction: 1 x 7.5 mg tablet Condition: Sunday (Week Two) Dose/Route: 3.75 mg Instruction: 0.5 x 7.5 mg tablets Condition: Sunday Dose/Route: 3.75 mg Instruction: 0.5 x 7.5 mg tablets Condition: Sunday Dose/Route: 7.5 mg Instruction: 1 x 7.5 mg tablet Condition: Sunday Dose/Route: 3.75 mg Instruction: 0.5 x 7.5 mg tablets Condition: Dose/Route: 3.75 mg Instruction: 0.5 x 7.5 mg tablets Condition: Sunday Dose/Route: 7.5 mg Instruction: 1 x 7.5 mg tablet Condition: Sunday Dose/Route: 3.75 mg Instruction: 0.5 x 7.5 mg tablets Protocol Text: Adjustment Start Date: Sunday08/29/21 INR Value: 2.0 INR Date: 08/17/21 Recheck Date: 09/12/21 Rx Instructions: 3.75 MG ORALLY X TWO DAYS IN THE PM, THEN 7.5MG ORALLY X ONE DAY IN THE PM, THEN 3.75 ORALY X 2 DAYS IN THE PM, THEN 7.5 MG ORALLY X ONE DAY IN THE PM, THEN REPEATS. 11/02 AND TAKE 3.75. 11/04/21 TAKE 7.5MG. glimepiride 2 mg tablet 2 mg PO QAM Rx Instructions: administer with breakfast Discharge Orders: Discharge Order (Routine); Ordered 11/09/21 Ordered By: Humberto Case/Other Patient Handouts: High Blood Sugar (Hyperglycemia), Hypoglycemia (Low Blood Sugar), Managing Type 2 Diabetes Admission Data Admit Date/Time: 11/03/21 18:14 Attending Provider: Humberto Vela Admit Provider: Meliton Khalil Primary Care Provider: Wanda Lantigua Other Providers: Meliton Khalil ; [facility] Lam[facility] ; [place] Other Interventions: Discharge Summary Assessment (RN) Last Done: 11/09/21 13:02 Coding Level of Care Code D/C DAY MANAGEMENT >30 MINS Diagnoses Hypoglycemia E16.2 UTI (urinary tract infection) N39.0 Supratherapeutic INR R79.1 Type 2 diabetes mellitus E11.9 Diabetes mellitus [facility] insulin use: without orthophotography technician use Diabetes mellitus complication status: with kidney complications Diabetes mellitus complication detail: with chronic kidney disease Chronic kidney disease stage: stage 3 (moderate) Kidney stones N20.0 Recurrent deep vein thrombosis (DVT) I82.409 RANDY on CPAP G47.33; Z99.89 Generalized weakness R53.1 Chronic diastolic CHF (congestive heart failure) I50.32 History of Abhijit-en-Y gastric bypass Z98.84 Atrial fibrillation I48.91 CKD (chronic kidney disease), stage III N18.3 Hypokalemia E87.6 Pressure ulcer L89.90 Morbid obesity with BMI of 45.0-49.9, adult E66.01; Z68.42
== END 2021-11-09 13:34 | DRG 638 ==
LOC: ED 14:47 → 3E 18:14 → SUATTDRO 18:14 → 3E 19:37
DX: Z79.01 Long term (current) use of anticoagulants; Z98.84 Bariatric surgery status; G47.33 Obstructive sleep apnea (adult) (pediatric); K43.9 Ventral hernia without obstruction or gangrene; I48.91 Unspecified atrial fibrillation; E11.649 Type 2 diabetes mellitus with hypoglycemia without coma; L30.4 Erythema intertrigo; Z68.42 Body mass index [BMI] 45.0-49.9, adult; Z86.718 Personal history of other venous thrombosis and embolism; R79.1 Abnormal coagulation profile; L89.899 Pressure ulcer of other site, unspecified stage; N18.30 Chronic kidney disease, stage 3 unspecified; T38.3X5A Adverse effect of insulin and oral hypoglycemic [antidiabetic] drugs, initial encounter; Z87.891 Personal history of nicotine dependence; Z79.84 Long term (current) use of oral hypoglycemic drugs; E87.6 Hypokalemia; B96.29 Other Escherichia coli [E. coli] as the cause of diseases classified elsewhere; I50.32 Chronic diastolic (congestive) heart failure; L89.309 Pressure ulcer of unspecified buttock, unspecified stage; E83.51 Hypocalcemia; N39.0 Urinary tract infection, site not specified; E66.01 Morbid (severe) obesity due to excess calories

== ENCOUNTER 2022-04-13 13:49 | Inpatient (IN) ==
--- NOTE | 2022-04-13 14:09 | Emergency Department Note ---
Impression & Plan Weakness, Elevated INR, Hypokalemia, Hypomagnesemia, KINJAL (acute kidney injury) ED Provider Note NAME: FREDDY MCNEIL AGE: 66 SEX: M : 1955 ARRIVES VIA: Ambulance INFORMANT: Patient, ED PROVIDER(S): Bairon Shankar DO CHIEF COMPLAINT: Weakness HPI: The patient is a 66-year-old male who has a history of lymphedema as well as atrial fibrillation who presented to the emergency department for an evaluation of generalized weakness. He does take blood thinners. He states he also has a history of obstructive sleep apnea. The patient states he has no pain. He denies having any vomiting but he is noticed some nausea. He denies having any abdominal pain or chest pain. The patient states that he has noticed that ever since he left our facility for which she was admitted recently that he has not been able to walk. He is very weak. He cannot manage at home. He lives at home alone. He has very little help during the day. He called 911 today because he was worried about being at home and thinks he might need to be admitted for rehab. ROS: See above HPI for pertinent positives & negatives. A total of 10 systems reviewed and were otherwise negative. PAST MEDICAL HISTORY: See Below PAST SURGICAL HISTORY: See Below FAMILY HISTORY: See Below SOCIAL HISTORY: See Below HOME MEDICATIONS: See Below ALLERGIES: See Below VITALS: See Below PHYSICAL EXAMINATION: GENERAL: Patient is awake alert in no acute distress patient is resting comfortably and showing no signs of anxiety EYES: The conjunctivae are clear. The pupils are round and reactive. EARS, NOSE, MOUTH AND THROAT: The nose is without any evidence of any deformity. NECK: The neck is nontender and supple. RESPIRATORY: Normal respiratory effort is noted there is no evidence of wheezing rhonchi or rales CARDIOVASCULAR: Irregular heart sounds were noted to auscultation. There is no definite murmur. GASTROINTESTINAL: The abdomen is soft. Abdomen is nontender. MUSCULOSKELETAL/EXTREMITIES: There is no evidence of gross deformity full range of motion is noted in the hips and shoulders. SKIN: Severe lymphedema was noted bilaterally. Skin was warm and dry. NEUROLOGIC: Patient is awake alert and oriented x3. There is no facial droop. Manager Unix strength was symmetric. MEDICAL DECISION MAKING: The patient is a 66-year-old male who presented to the emergency department for an evaluation of generalized weakness. The patient states that he has severe lymphedema and is unable to ambulate. He states he has been somewhat compliant with his outpatient medications. The patient presented via ambulance because he was unable to care for himself at home. I discussed patient's laboratory and ra diographic studies with him. He was found to have a significantly elevated INR. He was also found to have electrolyte abnormalities and acute kidney injury. He was treated with IV fluids as well as magnesium and potassium replacement. He was reevaluated. I discussed his condition with the on-call [facility] hospitalist. The patient may require further inpatient management as well as possible placement given his lack of ability to care for himself. Triage Nursing notes reviewed. Prior medical records reviewed Vital Signs: reviewed and remarkable for no significant abnormalities Differential diagnosis: Infection, dehydration, metabolic abnormality, hypo/hyperglycemia, electrolyte disturbance, anemia, hypoxia, cardiac sources, intracerebral event, toxicologic, neurologic, as well as other pathologies. ER treatment provided: See below Diagnostics interpreted by me: ECG: EKG was obtained in the emergency department. My interpretation is atrial fibrillation at 89 bpm. There is no PVCs noted. Right bundle branch block pattern was favored. This was carried to a tracing from November 03, 2021. No changes were noted. Cardiac Monitoring: An order was placed for continuous cardiac monitoring. The monitor shows a rate of 84 bpm with sinus rhythm. Laboratory studies: As stated above and show below. Imaging studies: See below. Radiographic imaging was reviewed by myself Consultation(s): I discussed this case with Dr. Hager who is on-call for the [facility]ist group. Past Med/Surg History Medical History Anemia Atrial fibrillation Bilateral hydrocele CHF (congestive heart failure) CKD (chronic kidney disease), stage III Kidney stones Morbid obesity with BMI of 50.0-59.9, adult New onset atrial fibrillation RANDY on CPAP Pyelonephritis of left kidney Type 2 diabetes mellitus Urinary pain Surgical History History of nephrostomy History of Abhijit-en-Y gastric bypass Family History Other Family history non-contributory Social History Smoking Status: Never smoker Second Hand Exposure: No; Hx Alcohol Use: No Hx Substance Use: No Preferred Language: Kiswahili Communication Ability: Effective Cook Short Order Required: No Beliefs That Will Affect Care: None marital status: Single Current Living Situation: Alone current occupational status: employed How many Children do You have: 0 Feels Safe at Home: Yes Dental Care, Regularly: No Physical Activity Frequency: Other Assistive Devices: Bedside Commode and Walker Allergies Allergies Allergy/AdvReac Type Severity Reaction Status Date / Time No Known Allergies Allergy Verified 04/13/22 15:48 Home Meds Home Medications Medication Instructions Recorded Confirmed ascorbic acid (vitamin C) 500 mg 500 mg PO DAILY 01/03/19 04/13/22 chewable tablet (Vitamin C) calcium 650 mg-vitamin D3 12.5 1 tab PO DAILY 01/03/19 04/13/22 mcg-vitamin K 40 mcg chewable tablet (Viactiv) cholecalciferol (vitamin D3) 10 400 unit PO DAILY 01/03/19 04/13/22 mcg (400 unit) chewable tablet (Vitamin D3) fexofenadine 180 mg tablet 180 mg PO DAILY 01/03/19 04/13/22 (Anju Allergy) oxybutynin chloride 10 mg 10 mg PO BID 07/24/21 04/13/22 tablet,extended release 24 hr multivitamin 1 tab PO DAILY 11/03/21 04/13/22 polyethylene glycol 3350 17 17 g PO DAILY 11/03/21 04/13/22 gram/dose oral powder (Miralax) Previous Rx's Medication Instructions Recorded aspirin 81 mg tablet,delayed 81 mg PO QAM #30 tabs 02/26/19 release (Ecotrin Low Strength) atorvastatin 20 mg tablet 20 mg PO DAILY #90 tabs 07/25/21 metoprolol tartrate 50 mg tablet 50 mg PO BID #180 tabs 07/25/21 potassium chloride 10 mEq 10 meq PO DAILY #90 tabs 07/25/21 tablet,extended release miconazole nitrate 2 % topical 1 applic EXT BID #85 grams 07/29/21 powder (Desenex) omeprazole 20 mg tablet,delayed 20 mg PO DAILY #30 tabs 08/15/21 release warfarin 5 mg tablet 5 mg PO DAILY@1600 #30 tabs 11/09/21 diltiazem HCl 120 mg 120 mg PO DAILY #90 caps 01/16/22 capsule,extended release 12 hr furosemide 20 mg tablet 40 mg PO DAILY #180 tabs 02/01/22 Results & Data (ED) Vital Signs Vital Signs - 24 hr 04/13/22 14:07 04/13/22 14:07 04/13/22 14:07 Temperature 36.6 C Temperature Source Oral Pulse Rate 94 H Pulse Rate [Right Finger] 94 H Pulse Rhythm [Right Finger] Pulse Strength [Right Finger] Respiratory Rate Respiratory Effort / Characteristics Respiratory Depth Respiratory Pattern Blood Pressure 100/61 Blood Pressure [Right Arm] 100/61 Blood Pressure Mean 74 Blood Pressure Mean [Right Arm] 74 Blood Pressure Position [Right Arm] Pulse Oximetry 98 98 Oxygen Delivery Method Room Air Room Air Room Air Sepsis Recent Fever Within 48 Hours No Sepsis New/Unexplained Change in Mental Status No Sepsis Action Taken by Nursing No Action Required Pulse Oximetry Post Tiitration 98 04/13/22 14:38 04/13/22 14:42 04/13/22 15:22 Temperature 36.5 C Temperature Source Oral Pulse Rate 79 Pulse Rate [Right Finger] 83 Pulse Rhythm [Right Finger] Irregular Pulse Strength [Right Finger] Normal Respiratory Rate 20 Respiratory Effort / Characteristics Non-Labored Respiratory Depth Normal Respiratory Pattern Regular Blood Pressure Blood Pressure [Right Arm] 100/61 Blood Pressure Mean Blood Pressure Mean [Right Arm] 74 Blood Pressure Position [Right Arm] Lying Pulse Oximetry 97 Oxygen Delivery Method Sepsis Recent Fever Within 48 Hours Sepsis New/Unexplained Change in Mental Status Sepsis Action Taken by Nursing Pulse Oximetry Post Tiitration Home Medications Current Medication List: was personally reviewed by me Laboratory Data Attestation: I reviewed the patient's lab results. 04/13/22 14:22 04/13/22 14:22 Lab Results 04/13/22 04/13/22 04/13/22 Range/Units 14:21 14:22 14:22 WBC 9.26 (4.8-10.8) K/ul RBC 4.78 (4.70-6.10) M/uL Hgb 14.0 (14.0-18.0) g/dl Hct 42.7 (42.0-52.0) % MCV 89.3 (80.0-100.0) fL MCH 29.3 (25.0-34.0) pg MCHC 32.8 (32.0-36.0) g/dL RDW Std Deviation 46.9 H (36.4-46.3) fL RDW Coeff of Evan 14.5 (11.5-14.5) % Plt Count 305 (130-400) K/uL MPV 9.4 (9.4-12.4) fL Immature Gran % (Auto) 1.0 % Neut % (Auto) 83.1 % Lymph % (Auto) 7.8 % [place] % (Auto) 6.7 % Eos % (Auto) 0.9 % Baso % (Auto) 0.5 % Neut # (Auto) 7.70 H (1.40-6.50) K/uL Lymph # (Auto) 0.72 L (1.2-3.4) K/uL [place] # (Auto) 0.62 H (0.11-0.59) K/uL Eos # (Auto) 0.08 (0-0.50) K/uL Baso # (Auto) 0.05 (0-0.2) K/uL Immature Gran # (Auto) 0.09 (0.01-0.20) K/uL PT > 90.0 H (9.0-12.0) Seconds INR > 9.6 H* (0.9-1.1) APTT 67.8 H* (21.0-31.0) Seconds PTT Ratio 2.5 VBG pH (7.36-7.41) VBG pCO2 (38-50) mmHg VBG pO2 mmHg VBG HCO3 mmol/L VBG O2 Saturation % VBG Base Excess mEq/L Sodium (136-145) mmol/L Potassium (3.5-5.1) mmol/L Chloride (98-107) mmol/L Carbon Dioxide (21-32) mmol/L Anion Gap (3-11) BUN (6-23) mg/dl Creatinine (0.6-1.4) mg/dl Est Cr Clr Drug Dosing Est GFR ( Amer) ml/min Est GFR (Non-Af Amer) ml/min BUN/Creatinine Ratio (10-20) Glucose (70-99(Fasting)) mg/dl Calcium (8.5-10.1) mg/dl Magnesium (1.7-2.4) mg/dl Total Bilirubin (0.2-1.0) mg/dl AST (13-39) U/L ALT (7-52) U/L Alkaline Phosphatase (34-104) U/L Total Creatine Kinase (30-223) U/L Troponin I High Sens (0-20) pg/ml Total Protein (6.0-8.3) gm/dl Albumin (3.4-5.0) gm/dl Globulin (2.5-4.0) gm/dl Albumin/Globulin Ratio (0.9-2) SARS-CoV-2, RNA, NAAT NEGATIVE (NEGATIVE) 04/13/22 04/13/22 Range/Units 14:22 14:22 WBC (4.8-10.8) K/ul RBC (4.70-6.10) M/uL Hgb (14.0-18.0) g/dl Hct (42.0-52.0) % MCV (80.0-100.0) fL MCH (25.0-34.0) pg MCHC (32.0-36.0) g/dL RDW Std Deviation (36.4-46.3) fL RDW Coeff of Evan (11.5-14.5) % Plt Count (130-400) K/uL MPV (9.4-12.4) fL Immature Gran % (Auto) % Neut % (Auto) % Lymph % (Auto) % [place] % (Auto) % Eos % (Auto) % Baso % (Auto) % Neut # (Auto) (1.40-6.50) K/uL Lymph # (Auto) (1.2-3.4) K/uL [place] # (Auto) (0.11-0.59) K/uL Eos # (Auto) (0-0.50) K/uL Baso # (Auto) (0-0.2) K/uL Immature Gran # (Auto) (0.01-0.20) K/uL PT (9.0-12.0) Seconds INR (0.9-1.1) APTT (21.0-31.0) Seconds PTT Ratio VBG pH 7.30 L (7.36-7.41) VBG pCO2 47 (38-50) mmHg VBG pO2 28 mmHg VBG HCO3 23 mmol/L VBG O2 Saturation < 60.0 % VBG Base Excess -3.6 mEq/L Sodium 140 (136-145) mmol/L Potassium 2.9 L (3.5-5.1) mmol/L Chloride 108 H (98-107) mmol/L Carbon Dioxide 25 (21-32) mmol/L Anion Gap 7 (3-11) BUN 31 H (6-23) mg/dl Creatinine 2.29 H (0.6-1.4) mg/dl Est Cr Clr Drug Dosing Not Reportable Est GFR ( Amer) 33.7 ml/min Est GFR (Non-Af Amer) 29.1 ml/min BUN/Creatinine Ratio 13.5 (10-20) Glucose 143 H (70-99(Fasting)) mg/dl Calcium 7.2 L (8.5-10.1) mg/dl Magnesium 1.6 L (1.7-2.4) mg/dl Total Bilirubin 0.7 (0.2-1.0) mg/dl AST 31 (13-39) U/L ALT 28 (7-52) U/L Alkaline Phosphatase 94 (34-104) U/L Total Creatine Kinase 54 (30-223) U/L Troponin I High Sens 6.1 (0-20) pg/ml Total Protein 5.3 L (6.0-8.3) gm/dl Albumin 2.0 L (3.4-5.0) gm/dl Globulin 3.3 (2.5-4.0) gm/dl Albumin/Globulin Ratio 0.6 L (0.9-2) SARS-CoV-2, RNA, NAAT (NEGATIVE) Imaging Data Radiologist's Impression: Chest X-Ray 04/13/22 14:05 SINGLE VIEW CHEST CLINICAL HISTORY: Generalized weakness. FINDINGS: 2 AP, portable, upright chest radiographs are compared to study dated 11/03/2021. The examination is degraded by portable technique and patient rotation. The heart is enlarged. The pulmonary vasculature is noncongested. Chronic interstitial thickening is similar to previous. There is chronic elevation of the right hemidiaphragm with bibasilar atelectasis. No airspace consolidation or large pleural effusion is identified. There are scattered calcified granulomas No pneumothorax is seen. The skeletal structures are osteopenic. The bony thorax is grossly intact. IMPRESSION: Cardiomegaly with no acute cardiopulmonary abnormality. ACT 112: Negative or not required by law. Electronically signed by: Karl Westbrook M.D. 04/13/2022 2:57 PM Discharge Plan Visit Data Chief Complaint: Weakness Stated Complaint: WEAKNESS, DIZZY, FALLS ED Provider: Bairon Shankar Discharge Problem: Weakness, Elevated INR, Hypokalemia, Hypomagnesemia, KINJAL (acute kidney injury) Patient Disposition: Being Evaluated by Hospitalist Forms Stand Alone Forms: My [facility] Prescriptions Prescriptions: No Action atorvastatin 20 mg tablet 20 mg PO DAILY Qty: 90 3RF metoprolol tartrate 50 mg tablet 50 mg PO BID Qty: 180 3RF potassium chloride 10 mEq tablet extended release 10 meq PO DAILY Qty: 90 3RF omeprazole 20 mg tablet,delayed release (DR/EC) 20 mg PO DAILY Qty: 30 5RF diltiazem HCl 120 mg capsule,extended release 12 hr 120 mg PO DAILY Qty: 90 3RF furosemide 20 mg tablet 40 mg PO DAILY Qty: 180 3RF Rx Instructions: take 1-2 tablets, po daily fexofenadine [Anju Allergy] 180 mg Tablet 180 mg PO DAILY ascorbic acid (vitamin C) [Vitamin C] 500 mg Tablet,Chewable 500 mg PO DAILY cholecalciferol (vitamin D3) [Vitamin D3] 400 unit Tablet,Chewable 400 unit PO DAILY calcium-vitamin D3-vitamin K [Viactiv] 650 mg-12.5 mcg-40 mcg Tablet,Chewable 1 tab PO DAILY aspirin [Ecotrin Low Strength] 81 mg Tablet,Delayed Release (Dr/Ec) 81 mg PO QAM Qty: 30 3RF oxybutynin chloride 10 mg tablet extended release 24 hr 10 mg PO BID miconazole nitrate [Desenex] 2 % Powder 1 applic EXT BID Qty: 85 0RF Rx Instructions: groin multivitamin Tablet 1 tab PO DAILY polyethylene glycol 3350 [Miralax] 17 gram/dose Powder 17 g PO DAILY warfarin 5 mg Tablet 5 mg PO DAILY@1600 Qty: 30 0RF Referrals Referrals: Wanda Lantigua PA-C [Primary Care Provider] -
[2022-04-13 14:52] LABS: Base Excess VBG -3.6 mEq/L; HCO3 VBG 23 mmol/L; Oxygen Saturation VBG < 60.0 %; PCO2 VBG 47 mmHg (38-50); PO2 VBG 28 mmHg
[2022-04-13 14:57] LABS: Basophils # (auto) 0.05 K/uL (0-0.2); Basophils % (auto) 0.5 %; Eosinophils # (auto) 0.08 K/uL (0-0.50); Eosinophils % (auto) 0.9 %; Hematocrit (blood only) 42.7 % (42.0-52.0); Immature Granulocytes # (auto) 0.09 K/uL (0.01-0.20); Lymphocytes # (auto) 0.72 K/uL (1.2-3.4); Lymphocytes % (auto) 7.8 %; Mean Corpuscular Hemoglobin 29.3 pg (25.0-34.0); Mean Corpuscular Hgb Conc 32.8 g/dL (32.0-36.0); Mean Corpuscular Volume 89.3 fL (80.0-100.0); Mean Platelet Volume 9.4 fL (9.4-12.4); Monocytes # (auto) 0.62 K/uL (0.11-0.59); Monocytes % (auto) 6.7 %; Neutrophils % (auto) 83.1 %; Platelet Count 305 K/uL (130-400); RDW Coefficient of Variation 14.5 % (11.5-14.5); RDW Standard Deviation 46.9 fL (36.4-46.3); Red Blood Count 4.78 M/uL (4.70-6.10); White Blood Count 9.26 K/ul (4.8-10.8)
--- NOTE | 2022-04-13 14:59 | XRay Report ---
SINGLE VIEW CHEST CLINICAL HISTORY: Generalized weakness. FINDINGS: 2 AP, portable, upright chest radiographs are compared to study dated 11/03/2021. The examin ation is degraded by portable technique and patient rotation. The heart is enlarged. The pulmonary v asculature is noncongested. Chronic interstitial thickening is similar to previous. There is chronic elevation of the right hemidiaphragm with bibasilar atelectasis. No airspace consolidation or large p leural effusion is identified. There are scattered calcified granulomas No pneumothorax is seen. The skeletal structures are osteopenic. The bony thorax is grossly intact. IMPRESSION: Cardiomegaly with no acute cardiopulmonary abnormality. ACT 112: Negative or not required by law. Electronically signed by: Karl Westbrook M.D. 04/13/2022 2:57 PM
[2022-04-13 15:12] LABS: Alanine Aminotransferase 28 U/L (7-52); Albumin Globulin Ratio 0.6 (0.9-2); Alkaline Phosphatase 94 U/L (34-104); Anion Gap 7 (3-11); Aspartate Aminotransferase 31 U/L (13-39); BUN Creatinine Ratio 13.5 (10-20); Bilirubin,Total 0.7 mg/dl (0.2-1.0); Blood Urea Nitrogen 31 mg/dl (6-23); Calcium 7.2 mg/dl (8.5-10.1); Carbon Dioxide 25 mmol/L (21-32); Chloride 108 mmol/L (98-107); Creatine Kinase 54 U/L (30-223); Est GFR (African American) 33.7 ml/min; Est GFR (Non-African American) 29.1 ml/min; Globulin 3.3 gm/dl (2.5-4.0); Glucose 143 mg/dl (70-99(Fasting)); Magnesium 1.6 mg/dl (1.7-2.4); Potassium 2.9 mmol/L (3.5-5.1); Sodium 140 mmol/L (136-145); Total Protein 5.3 gm/dl (6.0-8.3)
[2022-04-13 15:17] LABS: Troponin I High Sensitivity 6.1 pg/ml (0-20)
[2022-04-13 15:45] LABS: Partial Thromboplastin Ratio 2.5
[2022-04-13 15:57] LABS: Prothrombin Time > 90.0 Seconds (9.0-12.0)
[2022-04-13 15:58] LABS: INR > 9.6 (0.9-1.1); Partial Thromboplastin Time 67.8 Seconds (21.0-31.0)
[2022-04-13] MEDS ORDERED: MAGNESIUM SULFATE / D5W 1 GM/100 ML BAG IV STA (15:58)
[2022-04-13] MEDS ORDERED: POTASSIUM CHLORIDE / WTR 10 MEQ/100 ML PLCT IV ONE (16:08)
[2022-04-13] MEDS ORDERED: POTASSIUM CHLORIDE 20 MEQ/15 ML UDC PO STA (16:08)
[2022-04-13] MEDS ORDERED: SODIUM CHLORIDE 0.9% 1000ML 500 ML IV ONE (16:08)
--- NOTE | 2022-04-13 16:52 | History & Physical Report ---
Date of Service April 13, 2022 Assessment & Plan (1) Generalized weakness: Plan: Significant deconditioning with lack of medical care as an outpatient No acute pathology suspected given lack of lateralizing deficit or acute change in history B12 level in AM PT/OT (2) Supratherapeutic INR: Plan: No acute bleed suspected. He is not anemic. INR > 9.6 as his warfarin dosing has not been monitored since November Vitamin K 5 mg IV now Repeat INR in a.m. (3) Acute renal insufficiency: Plan: Suspect due to overdiuresis with Lasix Appears dry on exam NSS 500ml bolus given in ER. LR 1L bolus now then 100ml/hr overnight for 2L Repeat BMP in AM Hold diuretics (4) Atrial fibrillation: Plan: Continue rate control with metoprolol tartrate and diltiazem Anticoagulation as above (5) History of Abhijit-en-Y gastric bypass: (6) Recurrent deep vein thrombosis (DVT): Plan: Anticoagulation as above (7) RANDY on CPAP: Plan: CPAP at bedtime (8) Hypokalemia: Plan: Suspect due to Lasix use. Stop lasix and replace as needed. (9) Hypomagnesemia: Plan: Suspect due to Lasix use. Stop lasix and replace as needed. Plan VTE prophylaxis -supratherapeutic INR on admission Diet -heart healthy, easy to chew Disposition -admit to [facility] telemetry Admission and Anticipated Discharge Date Admission Date: April 13, 2022 History of Present Illness Chief Complaint: Generalized weakness Primary Care Provider: Wanda Lantigua PA-C Hank Monzon is a 66-year-old male who presents to the ER with generalized weakness. He reports not having a healthcare provider since he was discharged from rehab the beginning of November last year. He has not had his INR checked since then in addition. During this time his cousin helps him getting him food. The patient does all his finances. He has used a walker " forever" for mobility but the distances have progressively become less due to bilateral weakness. He called EMS on Sunday to try and get some more help at home as his mobility has decreased slightly progressively. Apparently a firer locomotive crane has been helping to get into a rehabilitation again. He called [facility] again today as he was unable to get up from the commode. He reports his last fall was in mid February which she did not seek medical attention for and his neighbors helped him out. He has been weak ever since having chronic diarrhea starting last year. No new acute change in his weakness. Allergies Allergy/AdvReac Type Severity Reaction Status Date / Time No Known Allergies Allergy Verified 04/13/22 15:48 Home Medications Medication Instructions Recorded Confirmed Type ascorbic acid (vitamin C) 500 mg 500 mg PO DAILY 01/03/19 04/13/22 History chewable tablet (Vitamin C) calcium 650 mg-vitamin D3 12.5 1 tab PO DAILY 01/03/19 04/13/22 History mcg-vitamin K 40 mcg chewable tablet (Viactiv) cholecalciferol (vitamin D3) 10 400 unit PO DAILY 01/03/19 04/13/22 History mcg (400 unit) chewable tablet (Vitamin D3) fexofenadine 180 mg tablet 180 mg PO DAILY 01/03/19 04/13/22 History (Anju Allergy) aspirin 81 mg tablet,delayed 81 mg PO QAM #30 tabs 02/26/19 04/13/22 Rx release (Ecotrin Low Strength) oxybutynin chloride 10 mg 10 mg PO BID 07/24/21 04/13/22 History tablet,extended release 24 hr atorvastatin 20 mg tablet 20 mg PO DAILY #90 tabs 07/25/21 04/13/22 Rx metoprolol tartrate 50 mg tablet 50 mg PO BID #180 tabs 07/25/21 04/13/22 Rx potassium chloride 10 mEq 10 meq PO DAILY #90 tabs 07/25/21 04/13/22 Rx tablet,extended release miconazole nitrate 2 % topical 1 applic EXT BID #85 grams 07/29/21 04/13/22 Rx powder (Desenex) omeprazole 20 mg tablet,delayed 20 mg PO DAILY #30 tabs 08/15/21 04/13/22 Rx release multivitamin 1 tab PO DAILY 11/03/21 04/13/22 History polyethylene glycol 3350 17 17 g PO DAILY 11/03/21 04/13/22 History gram/dose oral powder (Miralax) warfarin 5 mg tablet 5 mg PO DAILY@1600 #30 tabs 11/09/21 04/13/22 Rx diltiazem HCl 120 mg 120 mg PO DAILY #90 caps 01/16/22 04/13/22 Rx capsule,extended release 12 hr furosemide 20 mg tablet 40 mg PO DAILY #180 tabs 02/01/22 04/13/22 Rx Past Med/Surg History Medical History Anemia Atrial fibrillation Bilateral hydrocele CHF (congestive heart failure) CKD (chronic kidney disease), stage III Kidney stones Morbid obesity with BMI of 50.0-59.9, adult New onset atrial fibrillation RANDY on CPAP Pyelonephritis of left kidney Type 2 diabetes mellitus Urinary pain Surgical History History of nephrostomy History of Abhijit-en-Y gastric bypass Family History Other Family history non-contributory Social History Smoking Status: Never smoker Second Hand Exposure: No; Hx Alcohol Use: No Hx Substance Use: No Preferred Language: [place] Communication Ability: Effective Independent Film Maker Required: No Beliefs That Will Affect Care: None marital status: Single Current Living Situation: Alone current occupational status: employed How many Children do You have: 0 Other Information That Helps Us Care for You: No Feels Safe at Home: Yes Safety Concerns: Feels Safe At This Time Dental Care, Regularly: No Physical Activity Frequency: Other Assistive Devices: CPAP, Glasses and Wheelchair Review of Systems Review of Systems: All systems reviewed & are unremarkable except as noted in HPI & below Physical Exam Constitutional: WD/WN, vitals as above Eyes: PERRL, conjunctivae normal, anicteric sclerae Respiratory: normal respiratory effort, lungs clear to auscultation Cardiovascular: Rate/Rhythm: regular rate and + irregularly irregular Extremities: normal capillary refill and + pedal edema (1+ pitting b/l equal); no calf tenderness Gastrointestinal (Abdomen): normal bowel sounds, soft, nontender, no hepatosplenomegaly Skin: Venous stasis changes only Neurologic: moves all extremities and awake; not confused Motor/Sensory: no tremor and no sensory deficit Psychiatric: A+Ox3, euthymic affect Results & Data Results & Data ([facility]) Vital Signs (Past 12 Hours) Vital Signs Temp Pulse Pulse Resp BP BP Pulse Ox 04/13/22 15:22 36.5 C 83 20 100/61 04/13/22 14:42 97 04/13/22 14:38 79 04/13/22 14:07 94 H 100/61 98 04/13/22 14:07 04/13/22 14:07 36.6 C 94 H 100/61 98 O2 Del Method 04/13/22 15:22 04/13/22 14:42 04/13/22 14:38 04/13/22 14:07 Room Air 04/13/22 14:07 Room Air 04/13/22 14:07 Room Air Laboratory Results Abnormal lab results 04/13/22 04/13/22 04/13/22 Range/Units 14:22 14:22 14:22 RDW Std Deviation 46.9 H (36.4-46.3) fL Neut # (Auto) 7.70 H (1.40-6.50) K/uL Lymph # (Auto) 0.72 L (1.2-3.4) K/uL [place] # (Auto) 0.62 H (0.11-0.59) K/uL PT > 90.0 H (9.0-12.0) Seconds INR > 9.6 H* (0.9-1.1) APTT 67.8 H* (21.0-31.0) Seconds VBG pH (7.36-7.41) Potassium 2.9 L (3.5-5.1) mmol/L Chloride 108 H (98-107) mmol/L BUN 31 H (6-23) mg/dl Creatinine 2.29 H (0.6-1.4) mg/dl Glucose 143 H (70-99(Fasting)) mg/dl Calcium 7.2 L (8.5-10.1) mg/dl Magnesium 1.6 L (1.7-2.4) mg/dl Total Protein 5.3 L (6.0-8.3) gm/dl Albumin 2.0 L (3.4-5.0) gm/dl Albumin/Globulin Ratio 0.6 L (0.9-2) 04/13/22 Range/Units 14:22 RDW Std Deviation (36.4-46.3) fL Neut # (Auto) (1.40-6.50) K/uL Lymph # (Auto) (1.2-3.4) K/uL [place] # (Auto) (0.11-0.59) K/uL PT (9.0-12.0) Seconds INR (0.9-1.1) APTT (21.0-31.0) Seconds VBG pH 7.30 L (7.36-7.41) Potassium (3.5-5.1) mmol/L Chloride (98-107) mmol/L BUN (6-23) mg/dl Creatinine (0.6-1.4) mg/dl Glucose (70-99(Fasting)) mg/dl Calcium (8.5-10.1) mg/dl Magnesium (1.7-2.4) mg/dl Total Protein (6.0-8.3) gm/dl Albumin (3.4-5.0) gm/dl Albumin/Globulin Ratio (0.9-2) Diagnostic Findings SINGLE VIEW CHEST CLINICAL HISTORY: Generalized weakness. FINDINGS: 2 AP, portable, upright chest radiographs are compared to study dated 11/03/2021. The examination is degraded by portable technique and patient rotation. The heart is enlarged. The pulmonary vasculature is noncongested. Chronic interstitial thickening is similar to previous. There is chronic elevation of the right hemidiaphragm with bibasilar atelectasis. No airspace consolidation or large pleural effusion is identified. There are scattered calcified granulomas No pneumothorax is seen. The skeletal structures are ost eopenic. The bony thorax is grossly intact. IMPRESSION: Cardiomegaly with no acute cardiopulmonary abnormality. Medications Administered ER medications given: Potassium chloride 20 mEq p.o. Normal saline 500 mL bolus Potassium chloride 10 mEq IV Magnesium sulfate 1 g IV ECG Indication: toxicologic Rate (beats per minute): 89 Rhythm: atrial fibrillation Findings: + RBBB and + left axis deviation Comparison ECG Date: from (November 03, 2021) Change: the following changes noted (Possible T wave inversion more evident in anterior leads versus lead placement) Code Status & VTE Plan Code Status DNR/DNI VTE Prophylaxis Plan VTE Prophylaxis will be ordered: Yes PG Care Time/CCT Total # of Minutes Spent Total Time Spent with Patient: Total time spent is greater than 50% in coordination of care (as documented) at patient's floor/unit and/or counseling patient: Coding Level of Care Code 66310 INT INP/OBS CARE 2/55MIN Diagnoses Generalized weakness R53.1 Supratherapeutic INR R79.1 Acute renal insufficiency N28.9 Atrial fibrillation I48.91 History of Abhijit-en-Y gastric bypass Z98.84 Recurrent deep vein thrombosis (DVT) I82.409 RANDY on CPAP G47.33; Z99.89 Hypokalemia E87.6 Hypomagnesemia E83.42
--- NOTE | 2022-04-13 17:11 | Electrocardiogram Report ---
Test Reason : Blood Pressure : / mmHG Vent. Rate : 089 BPM Atrial Rate : 081 BPM P-R Int : 000 ms QRS Dur : 152 ms QT Int : 428 ms P-R-T Axes : 000 -69 052 degrees QTc Int : 520 ms Poor data quality, interpretation may be adversely affected Atrial fibrillation Left axis deviation Right bundle branch block Inferior infarct (cited on or before 19-OCT-2000) Abnormal ECG When compared with ECG of 03-NOV-2021 15:32, T wave inversion more evident in Anterior leads QT has lengthened Confirmed by Abelardo Millard ([id number]) on 04/13/2022 5:10:45 PM Referred By: Confirmed By:Maldonado Millard
[2022-04-13] MEDS ORDERED: PHYTONADIONE 5 MG in DEXTROSE 5% 50 ML IV ONE (17:15)
[2022-04-13] MEDS ORDERED: LACTATED RINGER'S 1,000 ML IV ONE (18:58)
[2022-04-13] MEDS ORDERED: MAGNESIUM SULFATE / D5W 1 GM/100 ML BAG IV ONE (20:52)
[2022-04-13] MEDS: LACTATED RINGER'S 1,000 ML IV SCH (21:59)
[2022-04-13] MEDS: OXYBUTYNIN CHLORIDE XL 5 MG TABCR PO SCH (22:01)
[2022-04-13] MEDS: METOPROLOL TARTRATE 50 MG TAB PO SCH (22:01)
[2022-04-13] MEDS: MICONAZOLE NITRATE POWDER 85 GM EXT SCH (22:02)
[2022-04-14 03:02] LABS: Appearance Urine Turbid (Clear); Bacteria Urine Automated 2+ (Negative); Bilirubin Urine Negative (Negative); Blood Urine Negative (Negative); Color Urine Yellow; Epithelial Cell Urine Auto 20-30 /lpf (0-5); Glucose Urine UA Negative (Negative); Ketones Urine Negative (Negative); Leukocyte Esterase Urine 1+ (Negative); Nitrite Urine Positive (Negative); Protein Urine Trace (Negative); Specific Gravity Urine 1.013 (1.000-1.030); Urobilinogen Urine Negative (Negative); WBC Urine Automated >30 /hpf (0-5); pH Urine 5.5 (4.5-7.5)
[2022-04-14] MEDS: LACTATED RINGER'S 1,000 ML IV SCH (08:10)
[2022-04-14 08:11] LABS: Basophils # (auto) 0.03 K/uL (0-0.2); Basophils % (auto) 0.4 %; Eosinophils % (auto) 1.3 %; Hematocrit (blood only) 40.9 % (42.0-52.0); Hemoglobin 13.6 g/dl (14.0-18.0); Immature Granulocytes # (auto) 0.06 K/uL (0.01-0.20); Immature Granulocytes % (auto) 0.8 %; Lymphocytes # (auto) 0.96 K/uL (1.2-3.4); Lymphocytes % (auto) 12.5 %; Mean Corpuscular Hemoglobin 29.6 pg (25.0-34.0); Mean Corpuscular Hgb Conc 33.3 g/dL (32.0-36.0); Mean Corpuscular Volume 89.1 fL (80.0-100.0); Mean Platelet Volume 9.3 fL (9.4-12.4); Monocytes # (auto) 0.68 K/uL (0.11-0.59); Monocytes % (auto) 8.8 %; Neutrophils # (auto) 5.87 K/uL (1.40-6.50); Neutrophils % (auto) 76.2 %; Platelet Count 296 K/uL (130-400); RDW Coefficient of Variation 15.3 % (11.5-14.5); RDW Standard Deviation 49.3 fL (36.4-46.3); Red Blood Count 4.59 M/uL (4.70-6.10)
[2022-04-14] MEDS: ASPIRIN 81 MG ECTAB PO SCH (08:15)
[2022-04-14] MEDS: CHOLECALCIFEROL 400 UNITS 10 MCG TAB PO SCH (08:15)
[2022-04-14] MEDS: PANTOprazole 40 MG TAB PO SCH (08:15)
[2022-04-14] MEDS: FEXOFENADINE HCL 180 MG TAB PO SCH (08:15)
[2022-04-14] MEDS: ATORVASTATIN 20 MG TAB PO SCH (08:15)
[2022-04-14] MEDS: OXYBUTYNIN CHLORIDE XL 5 MG TABCR PO SCH ×2 (08:17→20:17)
[2022-04-14] MEDS: POLYETHYLENE (MIRALAX) 17 GM PACK PO SCH (08:17)
[2022-04-14 08:26] LABS: Albumin Globulin Ratio 0.6 (0.9-2); Albumin Level 2.1 gm/dl (3.4-5.0); Bilirubin,Total 1.3 mg/dl (0.2-1.0); Calcium 7.6 mg/dl (8.5-10.1); Creatinine Clr Calc Pharmacy 60.5 ml/min; Est GFR (African American) 43.1 ml/min; Est GFR (Non-African American) 37.2 ml/min; Globulin 3.3 gm/dl (2.5-4.0); Magnesium 1.8 mg/dl (1.7-2.4); Phosphorus 3.7 mg/dl (2.5-4.9); Potassium 2.9 mmol/L (3.5-5.1); Total Protein 5.4 gm/dl (6.0-8.3)
[2022-04-14 08:54] LABS: Prothrombin Time 30.1 Seconds (9.0-12.0)
[2022-04-14] MEDS ORDERED: CALCIUM VITAMIN D3 VITAMIN K PO SCH (09:00)
[2022-04-14] MEDS: METOPROLOL TARTRATE 50 MG TAB PO SCH ×2 (10:22→20:17)
[2022-04-14] MEDS ORDERED: POTASSIUM CHLORIDE CRTAB 20 MEQ TABCR PO STA (11:03)
[2022-04-14] MEDS: dilTIAZem HCL 120 MG CAPCR PO SCH (11:31)
[2022-04-14] MEDS: MICONAZOLE NITRATE POWDER 85 GM EXT SCH ×2 (11:36→20:17)
[2022-04-14] MEDS: SODIUM CHLOR 0.45% + 20MEQ KCL 20 MEQ/1,000 ML BAG IV SCH ×2 (11:49→18:20)
[2022-04-14] MEDS: POTASSIUM CHLORIDE CRTAB 20 MEQ TABCR PO SCH ×2 (15:12→20:17)
[2022-04-14] MEDS ORDERED: WARFARIN SOD 3 MG TAB PO SCH (16:00)
--- NOTE | 2022-04-14 22:27 | Hospitalist Progress Note ---
Date of Service April 14, 2022 Assessment & Plan (1) Generalized weakness: Plan: Significant deconditioning with lack of medical care as an outpatient No acute pathology suspected given lack of lateralizing deficit or acute change in history B12 level in AM PT/OT eval: notes appear to recommend SNF. (2) Supratherapeutic INR: Plan: No acute bleed suspected. He is not anemic. INR > 9.6 as his warfarin dosing has not been monitored since November Vitamin K 5 mg IV now INR is now 3. will order 3 mg of warfarin and monitor. (3) Acute renal insufficiency: Plan: Suspect due to overdiuresis with Lasix Appears dry on exam NSS 500ml bolus given in ER. LR 1L bolus now then 100ml/hr overnight for 2L Repeat BMP in AM Hold diuretics (4) Atrial fibrillation: Plan: Continue rate control with metoprolol tartrate and diltiazem Anticoagulation as above (5) History of Abhijit-en-Y gastric bypass: (6) Recurrent deep vein thrombosis (DVT): Plan: Anticoagulation as above (7) RANDY on CPAP: Plan: CPAP at bedtime (8) Hypokalemia: Plan: Suspect due to Lasix use. Stop lasix and replace as needed. (9) Hypomagnesemia: Plan: Suspect due to Lasix use. Stop lasix and replace as needed. Plan VTE prophylaxis -supratherapeutic INR on admission Diet -heart healthy, easy to chew Disposition -admit to [facility] telemetry Admission and Anticipated Discharge Date Admission Date: April 13, 2022 Subjective Patient reports no new symptoms. Review of Systems Review of Systems: All systems reviewed & are unremarkable except as noted in HPI & below Physical Exam Physical Exam: Constitutional: WD/WN, vitals as above Eyes: PERRL, conjunctivae normal, anicteric sclerae Respiratory: normal respiratory effort, lungs clear to auscultation Cardiovascular: Rate/Rhythm: regular rate and + irregularly irregular Extremities: normal capillary refill and + pedal edema (1+ pitting b/l equal); no calf tenderness Gastrointestinal (Abdomen): normal bowel sounds, soft, nontender, no hepatosplenomegaly Skin: Venous stasis changes only Neurologic: moves all extremities and awake; not confused Motor/Sensory: no tremor and no sensory deficit Psychiatric: A+Ox3, euthymic affect Results & Data Results & Data ([place]) Vital Signs (Past 12 Hours) Vital Signs Temp Pulse Pulse Resp BP Pulse Ox O2 Del Method 04/14/22 21:34 Room Air, CPAP 04/14/22 19:23 36.7 C 87 18 107/59 L 93 Room Air 04/14/22 15:00 102 H 04/14/22 14:57 36.5 C 101 H 18 102/65 95 Room Air 04/14/22 11:04 36.7 C 100 H 18 111/69 94 Room Air PG Care Time/CCT Total # of Minutes Spent Total Time Spent with Patient: Total time spent is greater than 50% in coordination of care (as documented) at patient's floor/unit and/or counseling patient: Coding Level of Care Code 96006 SUB INP/OBS CARE 2/35MIN Diagnoses Generalized weakness R53.1 Supratherapeutic INR R79.1 Acute renal insufficiency N28.9 Atrial fibrillation I48.91 History of Abhijit-en-Y gastric bypass Z98.84 Recurrent deep vein thrombosis (DVT) I82.409 RANDY on CPAP G47.33; Z99.89 Hypokalemia E87.6 Hypomagnesemia E83.42
[2022-04-15 08:14] LABS: INR 2.8 (0.9-1.1); Prothrombin Time 27.9 Seconds (9.0-12.0)
[2022-04-15] MEDS: ASPIRIN 81 MG ECTAB PO SCH (09:01)
[2022-04-15] MEDS: CHOLECALCIFEROL 400 UNITS 10 MCG TAB PO SCH (09:01)
[2022-04-15] MEDS: POTASSIUM CHLORIDE CRTAB 20 MEQ TABCR PO SCH ×3 (09:01→20:27)
[2022-04-15] MEDS: OXYBUTYNIN CHLORIDE XL 5 MG TABCR PO SCH ×2 (09:01→20:28)
[2022-04-15] MEDS: ATORVASTATIN 20 MG TAB PO SCH (09:01)
[2022-04-15] MEDS: dilTIAZem HCL 120 MG CAPCR PO SCH (09:01)
[2022-04-15] MEDS: METOPROLOL TARTRATE 50 MG TAB PO SCH ×2 (09:02→20:27)
[2022-04-15] MEDS: PANTOprazole 40 MG TAB PO SCH (09:02)
[2022-04-15] MEDS: FEXOFENADINE HCL 180 MG TAB PO SCH (09:02)
[2022-04-15] MEDS: MICONAZOLE NITRATE POWDER 85 GM EXT SCH ×2 (09:02→20:28)
[2022-04-15] MEDS: POLYETHYLENE (MIRALAX) 17 GM PACK PO SCH (09:02)
[2022-04-15] MEDS ORDERED: POLYETHYLENE (MIRALAX) 17 GM PACK PO PRN (11:42)
[2022-04-15 13:09] LABS: Adenovirus F 40/41 PCR Not Detected (NotDetected); Astrovirus PCR Not Detected (NotDetected); Campylobacter PCR Not Detected (NotDetected); Cryptosporidium PCR Not Detected (NotDetected); Cyclospora cayetanensis PCR Not Detected (NotDetected); Entamoeba histolytica PCR Not Detected (NotDetected); Enteroaggregative E.coli(EAEC) Not Detected (NotDetected); Enteropathogenic E.coli (EPEC) Not Detected (NotDetected); Enterotoxigenic E.coli (ETEC) Not Detected (NotDetected); Giardia lamblia PCR Not Detected (NotDetected); Norovirus GI/GII PCR Not Detected (NotDetected); Plesiomonas shigelloides PCR Not Detected (NotDetected); Rotavirus A PCR Not Detected (NotDetected); Salmonella PCR Not Detected (NotDetected); Sapovirus PCR Not Detected (NotDetected); Shiga-like Toxin E.coli (STEC) Not Detected (NotDetected); Shigella/Enteroinvasive E.coli Not Detected (NotDetected); Vibrio cholerae PCR Not Detected (NotDetected); Vibrio species PCR Not Detected (NotDetected); Yersinia enterocolitica PCR Not Detected (NotDetected)
[2022-04-15] MEDS: WARFARIN SOD 3 MG TAB PO SCH (16:21)
--- NOTE | 2022-04-15 22:49 | Hospitalist Progress Note ---
Date of Service April 15, 2022 Assessment & Plan (1) Generalized weakness: Plan: Significant deconditioning with lack of medical care as an outpatient No acute pathology suspected given lack of lateralizing deficit or acute change in history PT/OT eval: notes appear to recommend SNF. (2) Supratherapeutic INR: Plan: No acute bleed suspected. He is not anemic. INR > 9.6 as his warfarin dosing has not been monitored since November Vitamin K 5 mg IV now INR is now 3. will order 3 mg of warfarin and monitor. (3) Acute renal insufficiency: Plan: Suspect due to overdiuresis with Lasix Appears dry on exam NSS 500ml bolus given in ER. LR 1L bolus now then 100ml/hr overnight for 2L renal function has been gradually improving. (4) Atrial fibrillation: Plan: Continue rate control with metoprolol tartrate and diltiazem Anticoagulation as above (5) History of Abhijit-en-Y gastric bypass: (6) Recurrent deep vein thrombosis (DVT): Plan: Anticoagulation as above (7) RANDY on CPAP: Plan: CPAP at bedtime (8) Hypokalemia: Plan: Suspect due to Lasix use. Stop lasix and replace as needed. (9) Hypomagnesemia: Plan: Suspect due to Lasix use. Stop lasix and replace as needed. Plan VTE prophylaxis -supratherapeutic INR on admission Diet -heart healthy, easy to chew Admission and Anticipated Discharge Date Admission Date: April 13, 2022 Subjective Patient reports no new symptoms. Frustrated that he continues to have weakness. He is looking to break this cycle. Review of Systems Review of Systems: All systems reviewed & are unremarkable except as noted in HPI & below Physical Exam Physical Exam: Constitutional: WD/WN, vitals as above Eyes: PERRL, conjunctivae normal, anicteric sclerae Respiratory: normal respiratory effort, lungs clear to auscultation Cardiovascular: Rate/Rhythm: regular rate and + irregularly irregular Extremities: normal capillary refill and + pedal edema (1+ pitting b/l equal); no calf tenderness Gastrointestinal (Abdomen): normal bowel sounds, soft, nontender, no hepatosplenomegaly Skin: Venous stasis changes only Neurologic: moves all extremities and awake; not confused Motor/Sensory: no tremor and no sensory deficit Psychiatric: A+Ox3, euthymic affect Results & Data Results & Data ([place]) Vital Signs (Past 12 Hours) Vital Signs Temp Pulse Resp BP BP Pulse Ox O2 Del Method 04/15/22 20:41 Room Air 04/15/22 19:13 36.7 C 73 18 101/64 95 Room Air 04/15/22 15:56 36.7 C 79 18 136/80 97 Room Air 04/15/22 11:46 36.8 C 62 18 96/59 L 94 Room Air PG Care Time/CCT Total # of Minutes Spent Total Time Spent with Patient: Total time spent is greater than 50% in coordination of care (as documented) at patient's floor/unit and/or counseling patient: Coding Level of Care Code 81263 SUB INP/OBS CARE 2/35MIN Diagnoses Generalized weakness R53.1 Supratherapeutic INR R79.1 Acute renal insufficiency N28.9 Atrial fibrillation I48.91 History of Abhijit-en-Y gastric bypass Z98.84 Recurrent deep vein thrombosis (DVT) I82.409 RANDY on CPAP G47.33; Z99.89 Hypokalemia E87.6 Hypomagnesemia E83.42
[2022-04-16 07:32] LABS: Hematocrit (blood only) 37.2 % (42.0-52.0); Hemoglobin 12.2 g/dl (14.0-18.0); Mean Corpuscular Hemoglobin 29.7 pg (25.0-34.0); Mean Corpuscular Hgb Conc 32.8 g/dL (32.0-36.0); Mean Corpuscular Volume 90.5 fL (80.0-100.0); Mean Platelet Volume 9.2 fL (9.4-12.4); Platelet Count 256 K/uL (130-400); RDW Coefficient of Variation 14.6 % (11.5-14.5); RDW Standard Deviation 48.2 fL (36.4-46.3); Red Blood Count 4.11 M/uL (4.70-6.10); White Blood Count 6.86 K/ul (4.8-10.8)
[2022-04-16 07:58] LABS: INR 2.6 (0.9-1.1); Prothrombin Time 26.5 Seconds (9.0-12.0)
[2022-04-16 08:09] LABS: BUN Creatinine Ratio 16.7 (10-20); Calcium 7.4 mg/dl (8.5-10.1); Creatinine Clr Calc Pharmacy 70.9 ml/min; Est GFR (African American) 51.2 ml/min; Est GFR (Non-African American) 44.2 ml/min; Potassium 3.6 mmol/L (3.5-5.1)
[2022-04-16] MEDS: FEXOFENADINE HCL 180 MG TAB PO SCH (08:48)
[2022-04-16] MEDS: ASPIRIN 81 MG ECTAB PO SCH (08:48)
[2022-04-16] MEDS: PANTOprazole 40 MG TAB PO SCH (08:48)
[2022-04-16] MEDS: CHOLECALCIFEROL 400 UNITS 10 MCG TAB PO SCH (08:48)
[2022-04-16] MEDS: OXYBUTYNIN CHLORIDE XL 5 MG TABCR PO SCH ×2 (08:49→20:56)
[2022-04-16] MEDS: METOPROLOL TARTRATE 50 MG TAB PO SCH ×2 (08:50→20:53)
[2022-04-16] MEDS: dilTIAZem HCL 120 MG CAPCR PO SCH (08:51)
[2022-04-16] MEDS: ATORVASTATIN 20 MG TAB PO SCH (08:52)
[2022-04-16] MEDS: MICONAZOLE NITRATE POWDER 85 GM EXT SCH ×2 (08:53→20:53)
[2022-04-16] MEDS: MAGNESIUM OXIDE 400 MG TAB PO SCH ×2 (10:34→20:51)
[2022-04-16] MEDS: POTASSIUM CHLORIDE CRTAB 20 MEQ TABCR PO SCH ×2 (13:19→20:52)
--- NOTE | 2022-04-16 13:46 | XCELERA ---
[id number]
[2022-04-16] MEDS: WARFARIN SOD 3 MG TAB PO SCH (16:15)
--- NOTE | 2022-04-16 22:30 | Hospitalist Progress Note ---
Date of Service April 16, 2022 Assessment & Plan (1) Generalized weakness: Plan: Significant deconditioning with lack of medical care as an outpatient No acute pathology suspected given lack of lateralizing deficit or acute change in history PT/OT eval: notes appear to recommend SNF. (2) Supratherapeutic INR: Plan: No acute bleed suspected. He is not anemic. INR > 9.6 as his warfarin dosing has not been monitored since November Vitamin K 5 mg IV now INR is at goal. will order 3 mg of warfarin and monitor. (3) Acute renal insufficiency: Plan: Suspect due to overdiuresis with Lasix Appears dry on exam NSS 500ml bolus given in ER. LR 1L bolus now then 100ml/hr overnight for 2L renal function has been gradually improving. (4) Atrial fibrillation: Plan: Continue rate control with metoprolol tartrate and diltiazem Anticoagulation as above (5) History of Abhijit-en-Y gastric bypass: (6) Recurrent deep vein thrombosis (DVT): Plan: Anticoagulation as above (7) RANDY on CPAP: Plan: CPAP at bedtime (8) Hypokalemia: Plan: holding lasix, may consider restarting in 24-48 hours. (9) Hypomagnesemia: Plan: replaced. Plan VTE prophylaxis -supratherapeutic INR on admission Diet -heart healthy, easy to chew Admission and Anticipated Discharge Date Admission Date: April 13, 2022 Subjective Patient reports he has jelly like stools intermittently. He was seen by GI at [place] and was recomended daily miralax. Review of Systems Review of Systems: All systems reviewed & are unremarkable except as noted in HPI & below Physical Exam Physical Exam: Constitutional: WD/WN, vitals as above Eyes: PERRL, conjunctivae normal, anicteric sclerae Respiratory: normal respiratory effort, lungs clear to auscultation Cardiovascular: Rate/Rhythm: regular rate and + irregularly irregular Extremities: normal capillary refill and + pedal edema (1+ pitting b/l equal); no calf tenderness Gastrointestinal (Abdomen): normal bowel sounds, soft, nontender, no hepatosplenomegaly Skin: Venous stasis changes only Neurologic: moves all extremities and awake; not confused Motor/Sensory: no tremor and no sensory deficit Psychiatric: A+Ox3, euthymic affect Results & Data Results & Data ([place]) Vital Signs (Past 12 Hours) Vital Signs Temp Pulse Pulse Resp BP Pulse Ox O2 Del Method 04/16/22 20:02 Room Air 04/16/22 19:30 36.7 C 116 H 18 125/74 93 Room Air 04/16/22 16:07 36.9 C 104 H 20 118/68 95 Room Air 04/16/22 15:14 115 H 04/16/22 11:35 94 Room Air 04/16/22 11:27 36.7 C 97 H 16 97/60 L 90 Room Air PG Care Time/CCT Total # of Minutes Spent Total Time Spent with Patient: Total time spent is greater than 50% in coordination of care (as documented) at patient's floor/unit and/or counseling patient: Coding Level of Care Code 20113 SUB INP/OBS CARE 2/35MIN Diagnoses Generalized weakness R53.1 Supratherapeutic INR R79.1 Acute renal insufficiency N28.9 Atrial fibrillation I48.91 History of Abhijit-en-Y gastric bypass Z98.84 Recurrent deep vein thrombosis (DVT) I82.409 RANDY on CPAP G47.33; Z99.89 Hypokalemia E87.6 Hypomagnesemia E83.42
[2022-04-17 08:27] LABS: BUN Creatinine Ratio 16.3 (10-20); Calcium 7.5 mg/dl (8.5-10.1); Creatinine Clr Calc Pharmacy 71.8 ml/min; Est GFR (Non-African American) 44.9 ml/min; Magnesium 1.8 mg/dl (1.7-2.4); Phosphorus 3.1 mg/dl (2.5-4.9)
[2022-04-17] MEDS: POTASSIUM CHLORIDE CRTAB 20 MEQ TABCR PO SCH ×3 (08:43→20:51)
[2022-04-17] MEDS: CHOLECALCIFEROL 400 UNITS 10 MCG TAB PO SCH (08:43)
[2022-04-17] MEDS: OXYBUTYNIN CHLORIDE XL 5 MG TABCR PO SCH ×2 (08:43→20:52)
[2022-04-17] MEDS: PANTOprazole 40 MG TAB PO SCH (08:44)
[2022-04-17] MEDS: FEXOFENADINE HCL 180 MG TAB PO SCH (08:44)
[2022-04-17] MEDS: MICONAZOLE NITRATE POWDER 85 GM EXT SCH ×2 (08:44→20:52)
[2022-04-17] MEDS: ATORVASTATIN 20 MG TAB PO SCH (08:44)
[2022-04-17] MEDS: ASPIRIN 81 MG ECTAB PO SCH (08:44)
[2022-04-17] MEDS: dilTIAZem HCL 120 MG CAPCR PO SCH (08:47)
[2022-04-17] MEDS: METOPROLOL TARTRATE 50 MG TAB PO SCH ×2 (08:47→20:51)
[2022-04-17 08:52] LABS: INR 2.3 (0.9-1.1); Prothrombin Time 23.1 Seconds (9.0-12.0)
[2022-04-17] MEDS: WARFARIN SOD 3 MG TAB PO SCH (15:18)
--- NOTE | 2022-04-17 16:20 | Hospitalist Progress Note ---
Date of Service April 17, 2022 Assessment & Plan (1) Generalized weakness: Plan: Significant deconditioning with lack of medical care as an outpatient No acute pathology suspected given lack of lateralizing deficit or acute change in history PT/OT eval: notes appear to recommend SNF. (2) Supratherapeutic INR: Plan: No acute bleed suspected. He is not anemic. INR > 9.6 as his warfarin dosing has not been monitored since November Vitamin K 5 mg IV now INR is at goal. will order 3 mg of warfarin and monitor. (3) Acute renal insufficiency: Plan: Suspect due to overdiuresis with Lasix Appears dry on exam NSS 500ml bolus given in ER. LR 1L bolus now then 100ml/hr overnight for 2L renal function has been gradually improving. (4) Atrial fibrillation: Plan: Continue rate control with metoprolol tartrate and diltiazem Anticoagulation as above (5) History of Abhijit-en-Y gastric bypass: (6) Recurrent deep vein thrombosis (DVT): Plan: Anticoagulation as above (7) RANDY on CPAP: Plan: CPAP at bedtime (8) Hypokalemia: Plan: holding lasix, may consider restarting in 24-48 hours. (9) Hypomagnesemia: Plan: replaced. (10) Diarrhea: Plan: will hold miralax and will consult GI. Plan VTE prophylaxis -supratherapeutic INR on admission Diet -heart healthy, easy to chew Admission and Anticipated Discharge Date Admission Date: April 13, 2022 Subjective 66 yo male reports no new symptoms. He states he is continuing to have diarrhea today. e staed that during physical thrapy he had a loose bowel movement. Review of Systems Review of Systems: All systems reviewed & are unremarkable except as noted in HPI & below Physical Exam Physical Exam: Constitutional: WD/WN, vitals as above Eyes: PERRL, conjunctivae normal, anicteric sclerae Respiratory: normal respiratory effort, lungs clear to auscultation Cardiovascular: Rate/Rhythm: regular rate and + irregularly irregular Extremities: normal capillary refill and + pedal edema (1+ pitting b/l equal); no calf tenderness Gastrointestinal (Abdomen): normal bowel sounds, soft, nontender, no hepatosplenomegaly Skin: Venous stasis changes only Neurologic: moves all extremities and awake; not confused Motor/Sensory: no tremor and no sensory deficit Psychiatric: A+Ox3, euthymic affect Results & Data Results & Data ([facility]) Vital Signs (Past 12 Hours) Vital Signs Temp Pulse Pulse Resp BP Pulse Ox O2 Del Method 04/17/22 15:56 81 04/17/22 11:18 37.0 C 79 18 119/61 94 Room Air 04/17/22 08:45 Room Air 04/17/22 07:30 101 H 04/17/22 08:03 36.8 C 111 H 18 113/62 97 Room Air PG Care Time/CCT Total # of Minutes Spent Total Time Spent with Patient: Total time spent is greater than 50% in coordination of care (as documented) at patient's floor/unit and/or counseling patient: Coding Level of Care Code 50022 SUB INP/OBS CARE 2/35MIN Diagnoses Generalized weakness R53.1 Supratherapeutic INR R79.1 Acute renal insufficiency N28.9 Atrial fibrillation I48.91 History of Abhijit-en-Y gastric bypass Z98.84 Recurrent deep vein thrombosis (DVT) I82.409 RANDY on CPAP G47.33; Z99.89 Hypokalemia E87.6 Hypomagnesemia E83.42 Diarrhea R19.7 Diarrhea type: unspecified type (10) Diarrhea Diarrhea type: unspecified type Qualified Code(s): R19.7 - Diarrhea, unspecified
[2022-04-18] MEDS: POTASSIUM CHLORIDE CRTAB 20 MEQ TABCR PO SCH (08:04)
[2022-04-18] MEDS: FEXOFENADINE HCL 180 MG TAB PO SCH (08:04)
[2022-04-18] MEDS: dilTIAZem HCL 120 MG CAPCR PO SCH (08:04)
[2022-04-18] MEDS: ASPIRIN 81 MG ECTAB PO SCH (08:04)
[2022-04-18] MEDS: CHOLECALCIFEROL 400 UNITS 10 MCG TAB PO SCH (08:04)
[2022-04-18] MEDS: METOPROLOL TARTRATE 50 MG TAB PO SCH ×2 (08:04→23:25)
[2022-04-18] MEDS: PANTOprazole 40 MG TAB PO SCH (08:04)
[2022-04-18] MEDS: ATORVASTATIN 20 MG TAB PO SCH (08:04)
[2022-04-18] MEDS: OXYBUTYNIN CHLORIDE XL 5 MG TABCR PO SCH ×2 (08:05→21:31)
[2022-04-18] MEDS: MICONAZOLE NITRATE POWDER 85 GM EXT SCH ×2 (08:05→21:34)
[2022-04-18 08:29] LABS: INR 2.3 (0.9-1.1); Prothrombin Time 23.4 Seconds (9.0-12.0)
--- NOTE | 2022-04-18 10:08 | Gastrointestinal Consultation ---
Date of Consultation April 18, 2022 Assessment & Plan (1) Diarrhea: Discussed case with Dr. Plaza who advised on plan. - symptoms of diarrhea have been ongoing for the past year. - would continue to remain off of miralax. - can give trial of bentyl 10mg TID to see if this helps symptoms. - recommend outpatient colonoscopy to further evaluate his symptoms if no improvement with bentyl. Supervising Physician Co-Signing Physician Notes Agree with CHAPIS Yeh as above Abd: Soft, NT, ND, +BS Still complaining of approximately 3 BM's per day Recommend outpatient colonoscopy for further evaluation History of Present Illness Reason for Consultation: loose stools Requesting Physician: Luis Angel Live MD Attending Physician: Luis Angel Live History of Present Illness Patient is a 66 year old male who recently presented to the ED with complaints of generalized weakness. He tells me that he has had issue with weakness for the better part of the past year. At home he was having difficulty with his usual activities and findings it hard to get around as well as get himself on and off of his toilet which is why he called EMS to transport him to ED for further evaluation. He feels that over the past several months he has been getting weaker and had sustained a fall in 02/2022 which he was never evaluated for, but rather he tells me he had his neighbors help him up and just monitored him at home. He feels that he needs rehabilitation to help get his stregnth back. GI was consulted for loose stools. Patient tells me he has had loose stools for the past year. He admits to 2-3 bowel movements daily that are loose. During this admission he was given miralax and recently had stopped that. no bleeding and no melena. He has a history of gastric bypass and tells me that he tends to only eat one small meal a day and supplements around meals with cheese and crackers. he admits he has lost some weight over the past several years but he is not sure of how much he has lost. Per chart, he is down 29 lb from 10/2021 to this admission. He tells me he attributes this to his diet. Patient denies any current issues with nausea, vomiting, dysphagia, heartburn, abdominal pain. He does use coumadin for history of a fib 04/18/22 INR 2.3. 04/16/22 hgb 12.2, hct 37.2, wbc 6.86 04/15/22 biofire testing unremarkable. Allergies Allergy/AdvReac Type Severity Reaction Status Date / Time No Known Allergies Allergy Verified 04/13/22 15:48 Home Medications Medication Instructions Recorded Confirmed Type ascorbic acid (vitamin C) 500 mg 500 mg PO DAILY 01/03/19 04/13/22 History chewable tablet (Vitamin C) calcium 650 mg-vitamin D3 12.5 1 tab PO DAILY 01/03/19 04/13/22 History mcg-vitamin K 40 mcg chewable tablet (Viactiv) cholecalciferol (vitamin D3) 10 400 unit PO DAILY 01/03/19 04/13/22 History mcg (400 unit) chewable tablet (Vitamin D3) fexofenadine 180 mg tablet 180 mg PO DAILY 01/03/19 04/13/22 History (Anju Allergy) aspirin 81 mg tablet,delayed 81 mg PO QAM #30 tabs 02/26/19 04/13/22 Rx release (Ecotrin Low Strength) oxybutynin chloride 10 mg 10 mg PO BID 07/24/21 04/13/22 History tablet,extended release 24 hr atorvastatin 20 mg tablet 20 mg PO DAILY #90 tabs 07/25/21 04/13/22 Rx metoprolol tartrate 50 mg tablet 50 mg PO BID #180 tabs 07/25/21 04/13/22 Rx potassium chloride 10 mEq 10 meq PO DAILY #90 tabs 07/25/21 04/13/22 Rx tablet,extended release miconazole nitrate 2 % topical 1 applic EXT BID #85 grams 07/29/21 04/13/22 Rx powder (Desenex) omeprazole 20 mg tablet,delayed 20 mg PO DAILY #30 tabs 08/15/21 04/13/22 Rx release multivitamin 1 tab PO DAILY 11/03/21 04/13/22 History polyethylene glycol 3350 17 17 g PO DAILY 11/03/21 04/13/22 History gram/dose oral powder (Miralax) warfarin 5 mg tablet 5 mg PO DAILY@1600 #30 tabs 11/09/21 04/13/22 Rx diltiazem HCl 120 mg 120 mg PO DAILY #90 caps 01/16/22 04/13/22 Rx capsule,extended release 12 hr furosemide 20 mg tablet 40 mg PO DAILY #180 tabs 02/01/22 04/13/22 Rx Patient History Medical History Anemia Atrial fibrillation Bilateral hydrocele CHF (congestive heart failure) CKD (chronic kidney disease), stage III Kidney stones Morbid obesity with BMI of 50.0-59.9, adult New onset atrial fibrillation RANDY on CPAP Pyelonephritis of left kidney Type 2 diabetes mellitus Urinary pain Surgical History History of nephrostomy History of Abhijit-en-Y gastric bypass Family History Other Family history non-contributory Social History Smoking Status: Never smoker Second Hand Exposure: No; Hx Alcohol Use: No Hx Substance Use: No Preferred Language: Uzbek Communication Ability: Effective 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 Beliefs That Will Affect Care: None marital status: Single Current Living Situation: Alone current occupational status: employed How many Children do You have: 0 Other Information That Helps Us Care for You: No Feels Safe at Home: Yes Safety Concerns: Feels Safe At This Time Dental Care, Regularly: No Physical Activity Frequency: Other Assistive Devices: Bedside Commode, BiPap and Walker Review of Systems Review of Systems: All systems reviewed & are unremarkable except as noted in HPI & below Physical Exam Constitutional: WD/WN, vitals as above Respiratory: normal respiratory effort, lungs clear to auscultation Cardiovascular: RRR, no murmur, no edema Gastrointestinal (Abdomen): normal bowel sounds, soft, nontender, no hepatosplenomegaly Skin: no rashes, warm and dry Psychiatric: Orientation: alert and oriented x 3 Affect: euthymic affect Results & Data ([facility]) Vital Signs (Past 12 Hours) Vital Signs Temp Pulse Pulse Resp BP Pulse Ox O2 Del Method 04/18/22 08:02 36.9 C 62 20 133/65 96 Room Air 04/18/22 07:07 107 H 04/18/22 03:07 36.7 C 60 18 101/58 L 95 Room Air 04/17/22 22:35 36.9 C 87 18 115/65 96 Room Air PG Care Time/CCT Total # of Minutes Spent Total Time Spent with Patient: Total time spent is greater than 50% in coordination of care (as documented) at patient's floor/unit and/or counseling patient: Coding Level of Care Code 16741 INT INP/OBS CARE 2MIN Diagnoses Diarrhea R19.7 Diarrhea type: unspecified type Time Spent (min) 55 (1) Diarrhea Diarrhea type: unspecified type Qualified Code(s): R19.7 - Diarrhea, unspecified
[2022-04-18] MEDS: DICYCLOMINE HCL 10 MG CAP PO SCH ×2 (13:05→21:30)
[2022-04-18] MEDS: WARFARIN SOD 3 MG TAB PO SCH (16:20)
--- NOTE | 2022-04-18 17:09 | Hospitalist Progress Note ---
Date of Service April 18, 2022 Assessment & Plan (1) Generalized weakness: Plan: Significant deconditioning with lack of medical care as an outpatient No acute pathology suspected given lack of lateralizing deficit or acute change in history PT/OT eval: notes appear to recommend SNF. (2) Supratherapeutic INR: Plan: No acute bleed suspected. He is not anemic. INR > 9.6 as his warfarin dosing has not been monitored since November Vitamin K 5 mg IV now INR is at goal. will order 3 mg of warfarin and monitor. INR 2.3 (3) Acute renal insufficiency: Plan: Suspect due to overdiuresis with Lasix Appears dry on exam NSS 500ml bolus given in ER. LR 1L bolus now then 100ml/hr overnight for 2L renal function has been gradually improving. (4) Atrial fibrillation: Plan: Continue rate control with metoprolol tartrate and diltiazem Anticoagulation as above (5) History of Abhijit-en-Y gastric bypass: (6) Recurrent deep vein thrombosis (DVT): Plan: Anticoagulation as above (7) RANDY on CPAP: Plan: CPAP at bedtime (8) Hypokalemia: Plan: holding lasix, may consider restarting in 24-48 hours. (9) Hypomagnesemia: Plan: replaced. (10) Diarrhea: Plan: will hold miralax and will consult GI. rahul davis Plan VTE prophylaxis -supratherapeutic INR on admission Diet -heart healthy, easy to chew Admission and Anticipated Discharge Date Admission Date: April 13, 2022 Subjective 66 yo male reports no new symptoms. He continues to have loose stools. Review of Systems Review of Systems: All systems reviewed & are unremarkable except as noted in HPI & below Physical Exam Physical Exam: Constitutional: WD/WN, vitals as above Eyes: PERRL, conjunctivae normal, anicteric sclerae Respiratory: normal respiratory effort, lungs clear to auscultation Cardiovascular: Rate/Rhythm: regular rate and + irregularly irregular Extremities: normal capillary refill and + pedal edema (1+ pitting b/l equal); no calf tenderness Gastrointestinal (Abdomen): normal bowel sounds, soft, nontender, no hepatosplenomegaly Skin: Venous stasis changes only Neurologic: moves all extremities and awake; not confused Motor/Sensory: no tremor and no sensory deficit Psychiatric: A+Ox3, euthymic affect Results & Data Results & Data ([facility]) Vital Signs (Past 12 Hours) Vital Signs Temp Pulse Pulse Resp BP BP Pulse Ox 04/18/22 16:43 96 H 04/18/22 14:36 36.8 C 99 H 20 97/63 L 95 04/18/22 11:53 36.6 C 101 H 22 99/55 L 97 04/18/22 08:00 04/18/22 08:02 36.9 C 62 20 133/65 96 04/18/22 07:07 107 H O2 Del Method 04/18/22 16:43 04/18/22 14:36 Room Air 04/18/22 11:53 Room Air 04/18/22 08:00 Room Air 04/18/22 08:02 Room Air 04/18/22 07:07 PG Care Time/CCT Total # of Minutes Spent Total Time Spent with Patient: Total time spent is greater than 50% in coordination of care (as documented) at patient's floor/unit and/or counseling patient: Coding Level of Care Code 61289 SUB INP/OBS CARE 2/35MIN Diagnoses Generalized weakness R53.1 Supratherapeutic INR R79.1 Acute renal insufficiency N28.9 Atrial fibrillation I48.91 History of Abhijit-en-Y gastric bypass Z98.84 Recurrent deep vein thrombosis (DVT) I82.409 RANDY on CPAP G47.33; Z99.89 Hypokalemia E87.6 Hypomagnesemia E83.42 Diarrhea R19.7 Diarrhea type: unspecified type (10) Diarrhea Diarrhea type: unspecified type Qualified Code(s): R19.7 - Diarrhea, unspecified
[2022-04-19] MEDS: MICONAZOLE NITRATE POWDER 85 GM EXT SCH ×2 (08:06→19:55)
[2022-04-19] MEDS: METOPROLOL TARTRATE 50 MG TAB PO SCH ×2 (08:06→19:55)
[2022-04-19] MEDS: OXYBUTYNIN CHLORIDE XL 5 MG TABCR PO SCH ×2 (08:07→19:55)
[2022-04-19] MEDS: ASPIRIN 81 MG ECTAB PO SCH (08:07)
[2022-04-19] MEDS: DICYCLOMINE HCL 10 MG CAP PO SCH ×3 (08:07→19:55)
[2022-04-19] MEDS: CHOLECALCIFEROL 400 UNITS 10 MCG TAB PO SCH (08:07)
[2022-04-19] MEDS: PANTOprazole 40 MG TAB PO SCH (08:08)
[2022-04-19] MEDS: dilTIAZem HCL 120 MG CAPCR PO SCH (08:08)
[2022-04-19] MEDS: ATORVASTATIN 20 MG TAB PO SCH (08:08)
[2022-04-19] MEDS: FEXOFENADINE HCL 180 MG TAB PO SCH (08:08)
[2022-04-19] MEDS: PSYLLIUM or GUAR GUM FIBER POWDER PACKET PO SCH (13:48)
[2022-04-19] MEDS: WARFARIN SOD 3 MG TAB PO SCH (16:19)
--- NOTE | 2022-04-19 21:50 | Hospitalist Progress Note ---
Date of Service April 19, 2022 Assessment & Plan (1) Generalized weakness: Plan: Significant deconditioning with lack of medical care as an outpatient No acute pathology suspected given lack of lateralizing deficit or acute change in history Multiple skin lesions from skin folds and in and bottom. wound care has seen patient. Does not need debridement PT/OT eval: notes appear to recommend SNF. (2) Supratherapeutic INR: Plan: No acute bleed suspected. He is not anemic. INR > 9.6 as his warfarin dosing has not been monitored since November Vitamin K 5 mg IV now INR is at goal. will order 3 mg of warfarin and monitor. INR 2.3 (3) Acute renal insufficiency: Plan: *Acute kidney failure Suspect due to overdiuresis with Lasix in seting of loose stools renal function has been gradually improving. (4) Atrial fibrillation: Plan: Continue rate control with metoprolol tartrate and diltiazem Anticoagulation as above (5) History of Abhijit-en-Y gastric bypass: (6) Recurrent deep vein thrombosis (DVT): Plan: Anticoagulation as above (7) RANDY on CPAP: Plan: CPAP at bedtime (8) Hypokalemia: Plan: furosemide has mj held, patient having loose stools, once this has resolved may consider restarting. Perhaps at discharge. (9) Hypomagnesemia: Plan: replaced. (10) Diarrhea: Plan: will hold miralax and will consult GI. placed bentyl and metamucil. (11) BMI 45.0-49.9, adult: Plan: *Morbid obesity with BMI=45 Patient admitted with weakness, difficulty ambulating has BMI=45 Risk Factor(s): As above, hx DVT Treatment: Weights, I&O Plan VTE prophylaxis -supratherapeutic INR on admission Diet -heart healthy, easy to chew Admission and Anticipated Discharge Date Admission Date: April 13, 2022 Subjective Patient reports no new symptoms. His stools are becoming more formed, after adding metamucil. Review of Systems Review of Systems: All systems reviewed & are unremarkable except as noted in HPI & below Physical Exam Physical Exam: Constitutional: WD/WN, vitals as above Eyes: PERRL, conjunctivae normal, anicteric sclerae Respiratory: normal respiratory effort, lungs clear to auscultation Cardiovascular: Rate/Rhythm: regular rate and + irregularly irregular Extremities: normal capillary refill and + pedal edema (1+ pitting b/l equal); no calf tenderness Gastrointestinal (Abdomen): normal bowel sounds, soft, nontender, no hepatosplenomegaly Skin: Venous stasis changes only Neurologic: moves all extremities and awake; not confused Motor/Sensory: no tremor and no sensory deficit Psychiatric: A+Ox3, euthymic affect Results & Data Results & Data ([facility]) Vital Signs (Past 12 Hours) Vital Signs Temp Pulse Pulse Resp BP BP Pulse Ox 04/19/22 19:54 36.8 C 108 H 20 106/71 95 04/19/22 16:13 89 04/19/22 14:15 90 04/19/22 15:26 36.7 C 99 H 20 104/46 L 94 04/19/22 12:44 36.7 C 84 20 83/51 L 97 04/19/22 11:44 36.7 C 105 H 20 82/55 L 89/53 L 94 O2 Del Method 04/19/22 19:54 Room Air 04/19/22 16:13 04/19/22 14:15 04/19/22 15:26 Room Air 04/19/22 12:44 Room Air 04/19/22 11:44 Room Air PG Care Time/CCT Total # of Minutes Spent Total Time Spent with Patient: Total time spent is greater than 50% in coordination of care (as documented) at patient's floor/unit and/or counseling patient: Coding Level of Care Code 98119 SUB INP/OBS CARE 3/50MIN Diagnoses Generalized weakness R53.1 Supratherapeutic INR R79.1 Acute renal insufficiency N28.9 Atrial fibrillation I48.91 History of Abhijit-en-Y gastric bypass Z98.84 Recurrent deep vein thrombosis (DVT) I82.409 RANDY on CPAP G47.33; Z99.89 Hypokalemia E87.6 Hypomagnesemia E83.42 Diarrhea R19.7 Diarrhea type: unspecified type BMI 45.0-49.9, adult Z68.42 (10) Diarrhea Diarrhea type: unspecified type Qualified Code(s): R19.7 - Diarrhea, unspe cified
--- NOTE | 2022-04-20 07:26 | Hospitalist Progress Note ---
Date of Service April 20, 2022 Assessment & Plan (1) Generalized weakness: Plan: acute moderate risk Significant deconditioning with lack of medical care as an outpatient No acute CVA suspected given lack of lateralizing deficit or acute change in history Multiple areas of intertrigo various stages of healing creates risk of cellulitis wound care has seen patient. PT/OT eval: notes appear to recommend SNF. (2) Supratherapeutic INR: Plan: acute serious risk, typically anticoagulated for afib No acute bleed suspected. He is not anemic. INR > 9.6 as his warfarin dosing has not been monitored since November Vitamin K 5 mg IV given INr now in therapeutic range with coumadin at 3 mg a day (3) Acute renal insufficiency: Plan: *Acute kidney failure, CKD3 Suspect due to overdiuresis with Lasix in setting of loose stools renal function has been gradually improving. (4) Atrial fibrillation: Plan: chronic and stable , Continue rate control with metoprolol tartrate and diltiazem Anticoagulation as above (5) History of Abhijit-en-Y gastric bypass: (6) Recurrent deep vein thrombosis (DVT): Plan: chronic and stable Anticoagulation as above (7) RANDY on CPAP: Plan: chronic and stable CPAP at bedtime (8) Hypokalemia: Plan: acute moderate risk, self limited furosemide has mj held, patient having loose stools, (9) Hypomagnesemia: Plan: acute self limited, replaced. (10) Diarrhea: Plan: will hold miralax and outpt colonoscopy recommended by GI consult. placed on bentyl and metamucil. (11) BMI 45.0-49.9, adult: Plan: *Morbid obesity with BMI=45 chornic and stable but directly affects his care Patient admitted with weakness, difficulty ambulating has BMI=45 Admission and Anticipated Discharge Date Admission Date: April 13, 2022 Subjective Patient reports no new symptoms. His stools are now more solid, after adding metamucil. Pt is weakened and cannot talk care of himself at home Physical Exam Physical Exam: Patient morbidly obese. Areas of intertrigo have improved dramatically. Results & Data Results & Data ([facility]) Vital Signs (Past 12 Hours) Vital Signs Temp Pulse Pulse Resp BP Pulse Ox O2 Del Method 04/20/22 07:05 Room Air 04/19/22 22:00 85 04/20/22 02:53 97.9 F 87 20 95/56 L 96 Room Air 04/19/22 20:00 Room Air 04/19/22 22:52 98.1 F 65 20 100/65 95 Room Air 04/19/22 19:54 98.2 F 108 H 20 106/71 95 Room Air PG Care Time/CCT Total # of Minutes Spent Total Time Spent with Patient: Total time spent is greater than 50% in coordination of care (as documented) at patient's floor/unit and/or counseling patient: Coding Level of Care Code 33134 SUB INP/OBS CARE 2/35MIN Diagnoses Generalized weakness R53.1 Supratherapeutic INR R79.1 Acute renal insufficiency N28.9 Atrial fibrillation I48.91 History of Abhijit-en-Y gastric bypass Z98.84 Recurrent deep vein thrombosis (DVT) I82.409 RANDY on CPAP G47.33; Z99.89 Hypokalemia E87.6 Hypomagnesemia E83.42 Diarrhea R19.7 Diarrhea type: unspecified type BMI 45.0-49.9, adult Z68.42 (10) Diarrhea Diarrhea type: unspecified type Qualified Code(s): R19.7 - Diarrhea, unspecified
[2022-04-20 08:37] LABS: BUN Creatinine Ratio 17.2 (10-20); Calcium 7.6 mg/dl (8.5-10.1); Creatinine Clr Calc Pharmacy 73.3 ml/min; Est GFR (African American) 53.2 ml/min; Est GFR (Non-African American) 45.9 ml/min; Potassium 3.8 mmol/L (3.5-5.1)
[2022-04-20] MEDS: MICONAZOLE NITRATE POWDER 85 GM EXT SCH ×2 (08:48→21:10)
[2022-04-20] MEDS: PSYLLIUM or GUAR GUM FIBER POWDER PACKET PO SCH (08:48)
[2022-04-20] MEDS: CHOLECALCIFEROL 400 UNITS 10 MCG TAB PO SCH (08:50)
[2022-04-20] MEDS: OXYBUTYNIN CHLORIDE XL 5 MG TABCR PO SCH ×2 (08:50→21:08)
[2022-04-20] MEDS: DICYCLOMINE HCL 10 MG CAP PO SCH ×3 (08:50→21:08)
[2022-04-20] MEDS: dilTIAZem HCL 120 MG CAPCR PO SCH (08:50)
[2022-04-20] MEDS: PANTOprazole 40 MG TAB PO SCH (08:50)
[2022-04-20] MEDS: METOPROLOL TARTRATE 50 MG TAB PO SCH ×2 (08:50→21:08)
[2022-04-20] MEDS: ATORVASTATIN 20 MG TAB PO SCH (08:50)
[2022-04-20] MEDS: FEXOFENADINE HCL 180 MG TAB PO SCH (08:51)
[2022-04-20] MEDS: ASPIRIN 81 MG ECTAB PO SCH (08:51)
[2022-04-20 08:57] LABS: INR 2.3 (0.9-1.1); Prothrombin Time 23.3 Seconds (9.0-12.0)
[2022-04-20] MEDS: WARFARIN SOD 3 MG TAB PO SCH (15:24)
[2022-04-21 08:13] LABS: Calcium 7.8 mg/dl (8.5-10.1); Creatinine Clr Calc Pharmacy 71.7 ml/min; Est GFR (African American) 51.6 ml/min; Est GFR (Non-African American) 44.5 ml/min
[2022-04-21 08:21] LABS: INR 2.4 (0.9-1.1)
[2022-04-21] MEDS: METOPROLOL TARTRATE 50 MG TAB PO SCH ×2 (09:17→20:55)
[2022-04-21] MEDS: DICYCLOMINE HCL 10 MG CAP PO SCH ×3 (09:18→20:54)
[2022-04-21] MEDS: ASPIRIN 81 MG ECTAB PO SCH (09:19)
[2022-04-21] MEDS: OXYBUTYNIN CHLORIDE XL 5 MG TABCR PO SCH ×2 (09:19→20:54)
[2022-04-21] MEDS: CHOLECALCIFEROL 400 UNITS 10 MCG TAB PO SCH (09:19)
[2022-04-21] MEDS: ATORVASTATIN 20 MG TAB PO SCH (09:19)
[2022-04-21] MEDS: dilTIAZem HCL 120 MG CAPCR PO SCH (09:19)
[2022-04-21] MEDS: FEXOFENADINE HCL 180 MG TAB PO SCH (09:19)
[2022-04-21] MEDS: PANTOprazole 40 MG TAB PO SCH (09:19)
[2022-04-21] MEDS: PSYLLIUM or GUAR GUM FIBER POWDER PACKET PO SCH (09:20)
[2022-04-21] MEDS: MICONAZOLE NITRATE POWDER 85 GM EXT SCH ×2 (09:21→20:55)
[2022-04-21] MEDS: ACETAMINOPHEN 325 MG TAB PO PRN (09:38)
[2022-04-21] MEDS: DICLOFENAC SOD 1% GEL 100 GM TUBE EXT SCH ×2 (13:16→20:56)
[2022-04-21] MEDS: WARFARIN SOD 3 MG TAB PO SCH (15:25)
--- NOTE | 2022-04-21 15:39 | Hospitalist Progress Note ---
Date of Service April 21, 2022 Assessment & Plan (1) Generalized weakness: Plan: acute moderate risk Significant deconditioning with lack of medical care as an outpatient No acute CVA suspected given lack of lateralizing deficit or acute change in history Multiple areas of intertrigo with [place] wound care now most are healing creates risk of cellulitis wound care has seen patient. Focal left hip pain with plain films on 04/21/2022 PT/OT eval: notes appear to recommend SNF. (2) Supratherapeutic INR: Plan: acute serious risk, typically anticoagulated for afib No acute bleed suspected. He is not anemic. INR > 9.6 as his warfarin dosing has not been monitored since November Vitamin K 5 mg IV given INr 04/21/2022 remains in therapeutic range with coumadin at 3 mg a day (3) Acute renal insufficiency: Plan: *Acute kidney failure, CKD3 Suspect due to overdiuresis with Lasix in setting of loose stools renal function has been gradually improving. (4) Atrial fibrillation: Plan: chronic and stable , Continue rate control with metoprolol tartrate and diltiazem Anticoagulation as above (5) History of Abhijit-en-Y gastric bypass: (6) Recurrent deep vein thrombosis (DVT): Plan: chronic and stable Anticoagulation as above (7) RANDY on CPAP: Plan: chronic and stable CPAP at bedtime (8) Hypokalemia: Plan: acute moderate risk, self limited furosemide has mj held,, stools are improving (9) Hypomagnesemia: Plan: acute self limited, replaced. (10) Diarrhea: Plan: will hold miralax and outpt colonoscopy recommended by GI consult. placed on bentyl and metamucil. (11) BMI 45.0-49.9, adult: Plan: *Morbid obesity with BMI=45 chornic and stable but directly affects his care Patient admitted with weakness, difficulty ambulating has BMI=45 Admission and Anticipated Discharge Date Admission Date: April 13, 2022 Subjective Patient having significant left hip pain when moving moved about in bed. He is requesting some topical lotion or cream he uses hemp oil cream at home we will try Voltaren cream here. Given his morbid obesity with a BMI of 46 with body weight of 346 pounds patient still is too weak to safely care for himself at home and were awaiting placement Physical Exam Physical Exam: Patient is intertrigo is improved dramatically. Card exam is regular lungs are clear Given his body habitus and positioning is very difficult to get a good hip examination on this patient, although it might be challenging we will start with plain films to determine if there is any occult fracture since the pain is main focus of problems at this time Results & Data Results & Data ([facility]) Vital Signs (Past 12 Hours) Vital Signs Temp Pulse Resp BP BP Pulse Ox O2 Del Method 04/21/22 08:00 Room Air 04/21/22 11:44 97.7 F 99 H 20 128/71 98 Room Air 04/21/22 08:22 98.1 F 94 H 20 113/62 96 Room Air 04/21/22 06:00 97.7 F 115 H 22 121/72 95 Room Air Laboratory Results Reviewed coagulation Reviewed chemistry panel PG Care Time/CCT Total # of Minutes Spent Total Time Spent with Patient: Total time spent is greater than 50% in coordination of care (as documented) at patient's floor/unit and/or counseling patient: Coding Level of Care Code 03406 SUB INP/OBS CARE 2/35MIN Diagnoses Generalized weakness R53.1 Supratherapeutic INR R79.1 Acute renal insufficiency N28.9 Atrial fibrillation I48.91 History of Abhijit-en-Y gastric bypass Z98.84 Recurrent deep vein thrombosis (DVT) I82.409 RANDY on CPAP G47.33; Z99.89 Hypokalemia E87.6 Hypomagnesemia E83.42 Diarrhea R19.7 Diarrhea type: unspecified type BMI 45.0-49.9, adult Z68.42 (10) Diarrhea Diarrhea type: unspecified type Qualified Code(s): R19.7 - Diarrhea, unspecified
[2022-04-21] MEDS ORDERED: CYANOCOBALAMIN 1000 MCG/ML VIAL IM ONE (16:00)
[2022-04-22 07:47] LABS: INR 2.6 (0.9-1.1); Prothrombin Time 26.4 Seconds (9.0-12.0)
[2022-04-22 09:24] LABS: Calcium 7.5 mg/dl (8.5-10.1); Creatinine Clr Calc Pharmacy 71.2 ml/min; Est GFR (African American) 50.8 ml/min; Est GFR (Non-African American) 43.9 ml/min; Potassium 3.8 mmol/L (3.5-5.1)
[2022-04-22] MEDS: OXYBUTYNIN CHLORIDE XL 5 MG TABCR PO SCH ×2 (09:56→21:59)
[2022-04-22] MEDS: METOPROLOL TARTRATE 50 MG TAB PO SCH ×2 (09:56→21:59)
[2022-04-22] MEDS: FEXOFENADINE HCL 180 MG TAB PO SCH (09:57)
[2022-04-22] MEDS: DICYCLOMINE HCL 10 MG CAP PO SCH ×2 (09:57→14:36)
[2022-04-22] MEDS: ATORVASTATIN 20 MG TAB PO SCH (09:57)
[2022-04-22] MEDS: CHOLECALCIFEROL 400 UNITS 10 MCG TAB PO SCH (09:57)
[2022-04-22] MEDS: PANTOprazole 40 MG TAB PO SCH (09:57)
[2022-04-22] MEDS: dilTIAZem HCL 120 MG CAPCR PO SCH (09:57)
[2022-04-22] MEDS: ASPIRIN 81 MG ECTAB PO SCH (09:57)
[2022-04-22] MEDS: PSYLLIUM or GUAR GUM FIBER POWDER PACKET PO SCH ×2 (09:57→21:59)
[2022-04-22] MEDS: DICLOFENAC SOD 1% GEL 100 GM TUBE EXT SCH ×2 (09:58→21:56)
[2022-04-22] MEDS: MICONAZOLE NITRATE POWDER 85 GM EXT SCH ×2 (09:58→21:58)
--- NOTE | 2022-04-22 13:48 | Hospitalist Progress Note ---
Date of Service April 22, 2022 Assessment & Plan (1) Generalized weakness: Plan: acute moderate risk Significant deconditioning with lack of medical care as an outpatient No acute CVA suspected given lack of lateralizing deficit or acute change in history Multiple areas of intertrigo with improvement after wound care Focal left hip pain Voltaren gel is improved discomfort PT/OT eval: notes appear to recommend SNF. (2) Supratherapeutic INR: Plan: acute serious risk, typically anticoagulated for afib No acute bleed suspected. He is not anemic. INR > 9.6 as his warfarin dosing has not been monitored since November Vitamin K 5 mg IV given INr 04/21/2022 remains in therapeutic range with coumadin at 3 mg a day (3) Recurrent urinary tract infection: Plan: Patient is recurrent cultures of with multidrug-resistant E. coli. The patient did have some reason for increasing weakness encephalopathy and presentation subsequently we will elect to treat this with cefepime therapy based upon his previous antimicrobial culture results and then amend this as we can to de- escalation (4) Acute renal insufficiency: Plan: *Acute kidney failure, CKD3 Suspect due to overdiuresis with Lasix in setting of loose stools renal function has been gradually improving. (5) Atrial fibrillation: Plan: chronic and stable , Continue rate control with metoprolol tartrate and d iltiazem Anticoagulation as above (6) History of Abhijit-en-Y gastric bypass: (7) Recurrent deep vein thrombosis (DVT): Plan: chronic and stable Anticoagulation as above (8) RANDY on CPAP: Plan: chronic and stable CPAP at bedtime (9) Hypokalemia: Plan: acute moderate risk, self limited furosemide has mj held,, stools are improving (10) Hypomagnesemia: Plan: acute self limited, replaced. (11) Diarrhea: Plan: will hold miralax and outpt colonoscopy recommended by GI consult. placed on bentyl and metamucil. (12) BMI 45.0-49.9, adult: Plan: *Morbid obesity with BMI=45 chornic and stable but directly affects his care Patient admitted with weakness, difficulty ambulating has BMI=45 Admission and Anticipated Discharge Date Admission Date: April 13, 2022 Subjective patient had improvement of his hip pain after initiating Voltaren gel he is able to ambulate short distances. Patient has recurrence of gram-negative urinary tract infection this was likely surveillance cultures about 1 week after his initial treatment patient not have any symptoms at this time previously had a ESBL E. coli UTI Given his morbid obesity with a BMI of 46 with body weight of 346 pounds patient still is too weak to safely care for himself at home and were awaiting placement Physical Exam Physical Exam: Patient is intertrigo is improved dramatically. Card exam is regular lungs are clear Given his body habitus and positioning is very difficult to get a good hip examination on this patient, although it might be challenging we will start with plain films to determine if there is any occult fracture since the pain is main focus of problems at this time Results & Data Results & Data ([facility]) Vital Signs (Past 12 Hours) Vital Signs Temp Pulse Resp BP Pulse Ox O2 Del Method 04/22/22 11:39 98.1 F 85 18 92/60 L 93 Room Air 04/22/22 07:58 98.1 F 81 18 110/70 94 Room Air 04/22/22 04:04 98.1 F 68 20 106/69 93 Room Air Laboratory Results Reviewed INR Reviewed chemistry panel Medications Administered Initiating cefepime for gram-negative UTI PG Care Time/CCT Total # of Minutes Spent Total Time Spent with Patient: Total time spent is greater than 50% in coordination of care (as documented) at patient's floor/unit and/or counseling patient: Coding Level of Care Code 90376 SUB INP/OBS CARE 2/35MIN Diagnoses Generalized weakness R53.1 Supratherapeutic INR R79.1 Recurrent urinary tract infection N39.0 Acute renal insufficiency N28.9 Atrial fibrillation I48.91 History of Abhijit-en-Y gastric bypass Z98.84 Recurrent deep vein thrombosis (DVT) I82.409 RANDY on CPAP G47.33; Z99.89 Hypokalemia E87.6 Hypomagnesemia E83.42 Diarrhea R19.7 Diarrhea type: unspecified type BMI 45.0-49.9, adult Z68.42 (11) Diarrhea Diarrhea type: unspecified type Qualified Code(s): R19.7 - Diarrhea, unspecified
[2022-04-22] MEDS: CEFEPIME 2,000 MG in SYRINGE 0 ML IV SCH ×2 (14:36→22:07)
[2022-04-22] MEDS: WARFARIN SOD 3 MG TAB PO SCH (16:12)
[2022-04-22] MEDS: CHOLESTYRAMINE LIGHT 4 GM PKT PO SCH (22:00)
[2022-04-23] MEDS: CEFEPIME 2,000 MG in SYRINGE 0 ML IV SCH ×3 (06:19→21:13)
[2022-04-23 07:22] LABS: Calcium 7.8 mg/dl (8.5-10.1); Creatinine Clr Calc Pharmacy 79.6 ml/min; Est GFR (African American) 58.6 ml/min; Est GFR (Non-African American) 50.5 ml/min
[2022-04-23 08:41] LABS: INR 2.4 (0.9-1.1); Prothrombin Time 24.5 Seconds (9.0-12.0)
[2022-04-23] MEDS: METOPROLOL TARTRATE 50 MG TAB PO SCH ×2 (10:01→21:12)
[2022-04-23] MEDS: OXYBUTYNIN CHLORIDE XL 5 MG TABCR PO SCH ×2 (10:01→21:12)
[2022-04-23] MEDS: PSYLLIUM or GUAR GUM FIBER POWDER PACKET PO SCH ×2 (10:01→21:13)
[2022-04-23] MEDS: CHOLESTYRAMINE LIGHT 4 GM PKT PO SCH ×2 (10:01→22:00)
[2022-04-23] MEDS: ATORVASTATIN 20 MG TAB PO SCH (10:02)
[2022-04-23] MEDS: dilTIAZem HCL 120 MG CAPCR PO SCH (10:02)
[2022-04-23] MEDS: PANTOprazole 40 MG TAB PO SCH (10:02)
[2022-04-23] MEDS: FEXOFENADINE HCL 180 MG TAB PO SCH (10:02)
[2022-04-23] MEDS: MICONAZOLE NITRATE POWDER 85 GM EXT SCH ×2 (10:03→21:14)
[2022-04-23] MEDS: DICLOFENAC SOD 1% GEL 100 GM TUBE EXT SCH ×2 (10:03→21:12)
[2022-04-23] MEDS: CHOLECALCIFEROL 400 UNITS 10 MCG TAB PO SCH (10:03)
[2022-04-23] MEDS: ASPIRIN 81 MG ECTAB PO SCH (11:13)
--- NOTE | 2022-04-23 12:53 | Hospitalist Progress Note ---
Date of Service April 23, 2022 Assessment & Plan (1) Generalized weakness: Plan: acute moderate risk Significant deconditioning with lack of medical care as an outpatient pressure changes to skin requiring special attention No acute CVA suspected given lack of lateralizing deficit or acute change in history Multiple areas of intertrigo with improvement after wound care Focal left hip pain Voltaren gel is improved discomfort PT/OT eval: notes appear to recommend SNF. (2) Supratherapeutic INR: Plan: acute serious risk, typically anticoagulated for afib No acute bleed suspected. He is not anemic. INR > 9.6 as his warfarin dosing has not been monitored since November Vitamin K 5 mg IV given INr remains in therapeutic range with coumadin at 3 mg a day (3) Recurrent urinary tract infection: Plan: Patient is recurrent cultures of with multidrug-resistant E. coli. The patient did have some reason for increasing weakness encephalopathy and presentation subsequently we will elect to treat this with cefepime therapy based upon his previous antimicrobial culture results and then amend this as we can to de- escalation (4) Acute renal insufficiency: Plan: *Acute kidney failure, CKD3 Suspect due to overdiuresis with Lasix in setting of loose stools renal function has been gradually improving. (5) Atrial fibrillation: Plan: chronic and stable , Continue rate control with metoprolol tartrate and diltiazem Anticoagulation as above (6) History of Abhijit-en-Y gastric bypass: Plan: pt is bothered by persistent diarrhea, negative for infection, now on fiber, colestyramine, and imodium (7) Recurrent deep vein thrombosis (DVT): Plan: chronic and stable Anticoagulation as above (8) RANDY on CPAP: Plan: chronic and stable CPAP at bedtime (9) Hypokalemia: Plan: acute moderate risk, self limited furosemide has mj held,, stools are improving (10) Hypomagnesemia: Plan: acute self limited, replaced. (11) BMI 45.0-49.9, adult: Plan: *Morbid obesity with BMI=45 chornic and stable but directly affects his care Patient admitted with weakness, difficulty ambulating has BMI=45 Admission and Anticipated Discharge Date Admission Date: April 13, 2022 Subjective patient had improvement of his hip pain after initiating Voltaren gel he is able to ambulate short distances. pt with persistent loose stools, c diff negative , increasing manuvers to thichen stools and prn Imodium, obesity and arthritis makes getting to bathroom a challenge Patient has recurrence of gram-negative urinary tract infection this was likely surveillance cultures about 1 week after his initial treatment patient not have any symptoms at this time previously had a ESBL E. coli UTI Given his morbid obesity with a BMI of 46 with body weight of 346 pounds patient still is too weak to safely care for himself at home and were awaiting placement Physical Exam Physical Exam: Patient is intertrigo is improved dramatically. some worsening of left calf area, wound care is seeing, waffle boots to heels Card exam is regular lungs are clear Given his body habitus and positioning is very difficult to get a good hip exam ination on this patient, Results & Data Results & Data ([facility]) Vital Signs (Past 12 Hours) Vital Signs Temp Pulse Resp BP Pulse Ox O2 Del Method 04/23/22 11:20 98.2 F 94 H 20 103/57 L 96 Room Air 04/23/22 07:49 97.7 F 98 H 18 119/68 95 Room Air 04/23/22 03:35 97.7 F 87 20 113/66 94 Room Air PG Care Time/CCT Total # of Minutes Spent Total Time Spent with Patient: Total time spent is greater than 50% in coordination of care (as documented) at patient's floor/unit and/or counseling patient: Coding Level of Care Code 07125 SUB INP/OBS CARE 2/35MIN Diagnoses Generalized weakness R53.1 Supratherapeutic INR R79.1 Recurrent urinary tract infection N39.0 Acute renal insufficiency N28.9 Atrial fibrillation I48.91 History of Abhijit-en-Y gastric bypass Z98.84 Recurrent deep vein thrombosis (DVT) I82.409 RANDY on CPAP G47.33; Z99.89 Hypokalemia E87.6 Hypomagnesemia E83.42 BMI 45.0-49.9, adult Z68.42
[2022-04-23] MEDS: WARFARIN SOD 3 MG TAB PO SCH (16:38)
[2022-04-24] MEDS: CEFEPIME 2,000 MG in SYRINGE 0 ML IV SCH ×3 (05:28→21:34)
[2022-04-24] MEDS: OXYBUTYNIN CHLORIDE XL 5 MG TABCR PO SCH ×2 (08:29→21:11)
[2022-04-24] MEDS: PSYLLIUM or GUAR GUM FIBER POWDER PACKET PO SCH ×2 (08:29→21:27)
[2022-04-24] MEDS: FEXOFENADINE HCL 180 MG TAB PO SCH (08:29)
[2022-04-24] MEDS: CHOLECALCIFEROL 400 UNITS 10 MCG TAB PO SCH (08:29)
[2022-04-24] MEDS: ATORVASTATIN 20 MG TAB PO SCH (08:29)
[2022-04-24] MEDS: PANTOprazole 40 MG TAB PO SCH (08:29)
[2022-04-24] MEDS: ASPIRIN 81 MG ECTAB PO SCH (08:29)
[2022-04-24] MEDS: dilTIAZem HCL 120 MG CAPCR PO SCH (08:29)
[2022-04-24] MEDS: METOPROLOL TARTRATE 50 MG TAB PO SCH ×2 (08:30→21:26)
[2022-04-24] MEDS: DICLOFENAC SOD 1% GEL 100 GM TUBE EXT SCH ×2 (08:30→21:27)
[2022-04-24] MEDS: MICONAZOLE NITRATE POWDER 85 GM EXT SCH ×2 (08:31→21:23)
[2022-04-24] MEDS: CHOLESTYRAMINE LIGHT 4 GM PKT PO SCH ×2 (10:53→22:59)
--- NOTE | 2022-04-24 16:02 | Hospitalist Progress Note ---
Date of Service April 24, 2022 Assessment & Plan (1) Generalized weakness: Plan: acute moderate risk Significant deconditioning with lack of medical care as an outpatient pressure changes to skin requiring special attention No acute CVA suspected given lack of lateralizing deficit or acute change in history Multiple areas of intertrigo with improvement after wound care Focal left hip pain Voltaren gel is improved discomfort PT/OT eval: notes appear to recommend SNF. (2) Supratherapeutic INR: Plan: acute serious risk, typically anticoagulated for afib No acute bleed suspected. He is not anemic. INR > 9.6 as his warfarin dosing has not been monitored since November Vitamin K 5 mg IV given INr remains in therapeutic range with coumadin at 3 mg a day (3) Recurrent urinary tract infection: Plan: Patient is recurrent cultures of with multidrug-resistant E. coli. The patient did have some reason for increasing weakness encephalopathy and presentation subsequently we will elect to treat this with cefepime therapy based upon his previous antimicrobial culture results and then amend this as we can to de- escalation (4) Acute renal insufficiency: Plan: *Acute kidney failure, CKD3 Suspect due to overdiuresis with Lasix in setting of loose stools renal function has been gradually improving. (5) Atrial fibrillation: Plan: chronic and stable , Continue rate control with metoprolol tartrate and diltiazem Anticoagulation as above (6) History of Abhijit-en-Y gastric bypass: Plan: pt is bothered by persistent diarrhea, negative for infection, now on fiber, colestyramine, and imodium with some improvement (7) Recurrent deep vein thrombosis (DVT): Plan: chronic and stable Anticoagulation as above (8) RANDY on CPAP: Plan: chronic and stable CPAP at bedtime (9) Hypokalemia: Plan: acute moderate risk, self limited furosemide has mj held,, stools are improving (10) Hypomagnesemia: Plan: acute self limited, replaced. (11) BMI 45.0-49.9, adult: Plan: *Morbid obesity with BMI=45 chornic and stable but directly affects his care Patient admitted with weakness, difficulty ambulating has BMI=45 Admission and Anticipated Discharge Date Admission Date: April 13, 2022 Subjective patient had improvement of his hip pain after initiating Voltaren gel he is able to ambulate short distances. pt with persistent loose stools, c diff negative , increasing maneuvers to thicken stools and prn Imodium make a good improvement , obesity and arthritis makes getting to bathroom a challenge Patient has recurrence of ESBL E. coli UTI uti poa Given his morbid obesity with a BMI of 46 with body weight of 346 pounds patient still is too weak to safely care for himself at home and were awaiting placement Physical Exam Physical Exam: Patient is intertrigo is improved dramatically. some worsening of left calf area, wound care is seeing, waffle boots to heels Card exam is regular lungs are clear Given his body habitus and positioning is very difficult to get a good hip examination on this patient, Results & Data Results & Data ([facility]) Vital Signs (Past 12 Hours) Vital Signs Temp Pulse Resp BP BP Pulse Ox O2 Del Method 04/24/22 15:46 97.5 F L 76 18 148/75 H 96 Room Air 04/24/22 15:42 Room Air 04/24/22 11:23 98.1 F 90 18 102/59 L 94 Room Air 04/24/22 07:18 97.5 F L 100 H 18 137/83 98 Room Air PG Care Time/CCT Total # of Minutes Spent Total Time Spent with Patient: Total time spent is greater than 50% in coordination of care (as documented) at patient's floor/unit and/or counseling patient: Coding Level of Care Code 89703 SUB INP/OBS CARE 2/35MIN Diagnoses Generalized weakness R53.1 Supratherapeutic INR R79.1 Recurrent urinary tract infection N39.0 Acute renal insufficiency N28.9 Atrial fibrillation I48.91 History of Abhijit-en-Y gastric bypass Z98.84 Recurrent deep vein thrombosis (DVT) I82.409 RANDY on CPAP G47.33; Z99.89 Hypokalemia E87.6 Hypomagnesemia E83.42 BMI 45.0-49.9, adult Z68.42
[2022-04-24] MEDS: WARFARIN SOD 3 MG TAB PO SCH (17:23)
[2022-04-25] MEDS: CEFEPIME 2,000 MG in SYRINGE 0 ML IV SCH ×3 (06:34→20:12)
[2022-04-25] MEDS: METOPROLOL TARTRATE 50 MG TAB PO SCH ×2 (08:44→20:11)
[2022-04-25] MEDS: dilTIAZem HCL 120 MG CAPCR PO SCH (08:45)
[2022-04-25] MEDS: PANTOprazole 40 MG TAB PO SCH (08:45)
[2022-04-25] MEDS: ASPIRIN 81 MG ECTAB PO SCH (08:45)
[2022-04-25] MEDS: CHOLECALCIFEROL 400 UNITS 10 MCG TAB PO SCH (08:46)
[2022-04-25] MEDS: FEXOFENADINE HCL 180 MG TAB PO SCH (08:46)
[2022-04-25] MEDS: OXYBUTYNIN CHLORIDE XL 5 MG TABCR PO SCH ×2 (08:46→20:10)
[2022-04-25] MEDS: ATORVASTATIN 20 MG TAB PO SCH (08:46)
[2022-04-25] MEDS: PSYLLIUM or GUAR GUM FIBER POWDER PACKET PO SCH ×2 (08:49→20:13)
[2022-04-25] MEDS: MICONAZOLE NITRATE POWDER 85 GM EXT SCH ×2 (08:53→20:11)
[2022-04-25] MEDS: DICLOFENAC SOD 1% GEL 100 GM TUBE EXT SCH ×2 (08:53→20:12)
[2022-04-25] MEDS: CHOLESTYRAMINE LIGHT 4 GM PKT PO SCH ×2 (10:30→20:13)
[2022-04-25] MEDS: LOPERAMIDE HCL 2 MG CAP PO PRN (15:09)
[2022-04-25] MEDS: WARFARIN SOD 3 MG TAB PO SCH (17:06)
--- NOTE | 2022-04-25 18:03 | Hospitalist Progress Note ---
Date of Service April 25, 2022 Assessment & Plan (1) Generalized weakness: Plan: acute moderate risk Significant deconditioning with lack of medical care as an outpatient pressure changes to skin requiring special attention No acute CVA suspected given lack of lateralizing deficit or acute change in history Multiple areas of intertrigo with improvement after wound care Focal left hip pain Voltaren gel is improved discomfort PT/OT eval: notes appear to recommend SNF. (2) Supratherapeutic INR: Plan: acute serious risk, typically anticoagulated for afib No acute bleed suspected. He is not anemic. INR > 9.6 as his warfarin dosing has not been monitored since November Vitamin K 5 mg IV given INr remains in therapeutic range with coumadin at 3 mg a day (3) Recurrent urinary tract infection: Plan: Patient is recurrent cultures of with multidrug-resistant E. coli. The patient did have some reason for increasing weakness encephalopathy and presentation subsequently we will elect to treat this with cefepime therapy based upon his previous antimicrobial culture results and then amend this as we can to de- escalation (4) Acute renal insufficiency: Plan: *Acute kidney failure, CKD3 Suspect due to overdiuresis with Lasix in setting of loose stools renal function has been gradually improving. (5) Atrial fibrillation: Plan: chronic and stable , Continue rate control with metoprolol tartrate and diltiazem Anticoagulation as above (6) History of Abhijit-en-Y gastric bypass: Plan: pt is bothered by persistent diarrhea, negative for infection, now on fiber, colestyramine, and imodium with some improvement will add bisthmuth 04/25/22 (7) Recurrent deep vein thrombosis (DVT): Plan: chronic and stable Anticoagulation as above (8) RANDY on CPAP: Plan: chronic and stable CPAP at bedtime (9) Hypokalemia: Plan: acute moderate risk, self limited furosemide has mj held,, stools are improving (10) Hypomagnesemia: Plan: acute self limited, replaced. (11) BMI 45.0-49.9, adult: Plan: *Morbid obesity with BMI=45 chornic and stable but directly affects his care Patient admitted with weakness, difficulty ambulating has BMI=45 Admission and Anticipated Discharge Date Admission Date: April 13, 2022 Subjective patient had improvement of his hip pain after initiating Voltaren gel he is able to ambulate short distances. pt with persistent loose stools, c diff negative , increasing maneuvers to thicken stools and prn Imodium make a good improvement , obesity and arthritis makes getting to bathroom a challenge Patient has recurrence of ESBL E. coli UTI uti poa Given his morbid obesity with a BMI of 46 with body weight of 346 pounds patient still is too weak to safely care for himself at home and were awaiting placement Physical Exam Physical Exam: Patient is intertrigo is improved dramatically. some worsening of left calf area, wound care is seeing, waffle boots to heels Card exam is regular lungs are clear Given his body habitus and positioning is very difficult to get a good hip examination on this patient, Results & Data Results & Data ([facility]) Vital Signs (Past 12 Hours) Vital Signs Temp Pulse Pulse Resp BP Pulse Ox O2 Del Method 04/25/22 15:38 89 04/25/22 12:33 Room Air 04/25/22 11:29 98.1 F 86 18 132/76 94 Room Air 04/25/22 07:28 87 04/25/22 07:12 97.5 F L 84 20 107/72 97 Room Air PG Care Time/CCT Total # of Minutes Spent Total Time Spent with Patient: Total time spent is greater than 50% in coordination of care (as documented) at patient's floor/unit and/or counseling patient: Coding Level of Care Code 97189 SUB INP/OBS CARE 2/35MIN Diagnoses Generalized weakness R53.1 Supratherapeutic INR R79.1 Recurrent urinary tract infection N39.0 Acute renal insufficiency N28.9 Atrial fibrillation I48.91 History of Abhijit-en-Y gastric bypass Z98.84 Recurrent deep vein thrombosis (DVT) I82.409 RANDY on CPAP G47.33; Z99.89 Hypokalemia E87.6 Hypomagnesemia E83.42 BMI 45.0-49.9, adult Z68.42
[2022-04-25] MEDS ORDERED: DIPHENOXYLATE/ATROPINE 2.5/0.025MG TAB PO ONE (18:46)
[2022-04-25] MEDS ORDERED: BISMUTH SUBSALICYLATE 262 MG CHEW PO SCH (21:00)
[2022-04-26] MEDS: CEFEPIME 2,000 MG in SYRINGE 0 ML IV SCH ×3 (05:14→21:37)
[2022-04-26 06:39] LABS: INR 2.3 (0.9-1.1); Prothrombin Time 23.7 Seconds (9.0-12.0)
--- NOTE | 2022-04-26 07:59 | Hospitalist Progress Note ---
Date of Service April 26, 2022 Assessment & Plan (1) Generalized weakness: Plan: acute moderate risk Significant deconditioning with lack of medical care as an outpatient pressure changes to skin requiring special attention No acute CVA suspected given lack of lateralizing deficit or acute change in history Multiple areas of intertrigo with improvement after wound care Focal left hip pain Voltaren gel is improved discomfort Orthopedics consulted -- imaging obtained, ?benefit from injection whether inpatient or outpatient Check ESR in AM Lyme negative (prior history of such) Cortisol not low Stool studies negative, given diarrhea UA/cx w/ Ecoli -- abx started and continued as below 04/26-- reporting diarrhea slowed, weakness improving w/ treatment of UTI PT/OT eval: notes appear to recommend SNF. (2) Supratherapeutic INR: Plan: acute serious risk, typically anticoagulated for afib No acute bleed suspected. He is not anemic. INR > 9.6 as his warfarin dosing has not been monitored since November Vitamin K 5 mg IV given INR 2.3 and remains on coumadin 3mg daily -- monitor on repeat/adjustments if needed (3) Recurrent urinary tract infection: Plan: Urine cx w/ Ecoli, MDR Given weakness and improvement w/ abx elected to treat and will continue --> sensitive to Cefepime, Ertapenem, Gentamicin, Meropenem, Zosyn, Bactrim - will continue Cefepime for now while inpatient, once stable for d/c can complete course (if any remaining) w/ Bactrim (4) Acute renal insufficiency: Plan: *Acute kidney failure, CKD3 Suspect due to overdiuresis with Lasix in setting of loose stools renal function has been gradually improving off his lasix however Cr 1.65 from 1.45 this morning was going to resume lasix but will hold given soft pressures and monitor PO intake/BMP on repeat Avoid nephrotoxic agents/renal dose meds when able (5) Atrial fibrillation: Plan: chronic and stable , Continue rate control with metoprolol tartrate and diltiazem Anticoagulation as above --> increased metoprolol to 25mg BID for this evening given elevated HRs and appears he is possibly to be on 50mg BID at home but unsure of his actual dose --> monitor rates w/ increase and consider further increase if BPs tolerate Keep K~4, mag ~2 --> 1gm IV mag for 1.8 and monitor level in AM (6) History of Abhijit-en-Y gastric bypass: Plan: pt is bothered by persistent diarrhea, negative for infection, now on fiber, colestyramine, and imodium with some improvement will add bisthmuth 04/25/22 reports less diarrhea and continue current plan as outlined (7) Recurrent deep vein thrombosis (DVT): Plan: chronic and stable Anticoagulation as above, INR therapeutic and monitor need outpt monitoring of INR (8) RANDY on CPAP: Plan: chronic and stable CPAP at bedtime per RT notes, patient states he DOES NOT WEAR all the time at home and doesn't want to wear here -- would encourage compliance, especially if remaining inpatient (has been ~2 weeks) (9) Hypokalemia: Plan: acute moderate risk, self limited furosemide has mj held,, stools are improving possibly resume lasix for tomorrow (10) Hypomagnesemia: Plan: acute self limited, replaced. and keeping closer to 2 (11) BMI 45.0-49.9, adult: Plan: *Morbid obesity with BMI=45 chornic and stable but directly affects his care Patient admitted with weakness, difficulty ambulating has BMI=45 (12) Diarrhea: Plan: slowing w/ treatment as above stool studies negative antidiarrheals available, continue questran (13) Left hip pain: Plan: L hip and b/l knees ortho consulted pain control imaging ordered for further eval lyme negative ?benefit from injection Plan continued inpatient stay ortho consulted Admission and Anticipated Discharge Date Admission Date: April 13, 2022 Supervising Physician Co-Signing Physician Notes The patient was not seen by me. The chart was reviewed. Case discussed with NIRU Flanagan. Agree with assessment and plan Subjective eval this morning seen by ortho -- no knee pain but having L hip pain and wanting xray imaging for eval. States his weakness he believes is improving. On abx for UTI currently. Reports he had a little diarrhea yesterday, having to move bowels today but stated has slowed overall. he notes hx of lyme and had worked on [employer] and noted being bit in the past but as large as he is states he wouldn't know if he was bit again. Denied any lightheaded/dizziness, is afib on monitor with rates 70-100s. States he takes metoprolol twice daily but denies knowing the dose. on 12.5mg BID and rx for 50mg BID. Will increase to 25mg and monitor. Hopeful for rehab soon as he wants to be out at camp by the summer. Resume dose of lasix x 1 given elevation in Cr and good PO intake. Occasional pains to his R shoulder blade for several seconds, unrelated to what he eats per patient. Not currently having any. No fever/chills, chest pain, shortness of breath, abdominal pain, nausea or vomiting at this time. Physical Exam Physical Exam: morbidly obese male sitting up in bed, NAD but reporting L hip pain Skin: intertrigo is improved dramatically HEENT: head normocephalic, atraumatic, mmm, trachea midline Resp: no distress, diminished in the bases, no wheezing CV: irregularly irregular, +murmur, LE edema, pulses palpable, waffle boots in place, chronic venous stasis changes GI: +obese, distended, +BS throughout, nontender MSK/Neuro: rom in knees intact, some crepitus L hip tender to palpation w/ active ROM, moderate pain w/ flexion/ extension/abduction/adduction Psych: AOx3, pleasant and cooperative Results & Data Results & Data ([facility]) Vital Signs (Past 12 Hours) Vital Signs Temp Pulse Pulse Resp BP BP Pulse Ox 04/26/22 07:17 36.5 C 102 H 18 113/75 97 04/26/22 03:58 36.6 C 92 H 18 137/66 96 04/26/22 00:48 04/25/22 23:59 74 04/25/22 23:12 36.5 C 88 18 98/66 L 96 O2 Del Method 04/26/22 07:17 Room Air 04/26/22 03:58 Room Air 04/26/22 00:48 Room Air 04/25/22 23:59 04/25/22 23:12 Room Air Laboratory Results 04/26/22 04/26/22 04/26/22 Range/Units 08:31 08:31 08:31 PT (9.0-12.0) Seconds INR (0.9-1.1) Sodium 140 (136-145) mmol/L Potassium 4.2 (3.5-5.1) mmol/L Chloride 114 H (98-107) mmol/L Carbon Dioxide 26 (21-32) mmol/L Anion Gap 0 L (3-11) BUN 25 H (6-23) mg/dl Creatinine 1.64 H (0.6-1.4) mg/dl Est Cr Clr Drug Dosing 70.2 ml/min Est GFR ( Amer) 50.5 ml/min Est GFR (Non-Af Amer) 43.5 ml/min BUN/Creatinine Ratio 15.2 (10-20) Glucose 90 (70-99(Fasting)) mg/dl Calcium 7.9 L (8.5-10.1) mg/dl Magnesium 1.8 (1.7-2.4) mg/dl 25-OH Vitamin D Total 51.7 (30-100) ng/ml Lyme Disease IgG Ab Negative (Negative) Lyme Disease IgM Ab Negative (Negative) 04/26/22 Range/Units 05:28 PT 23.7 H (9.0-12.0) Seconds INR 2.3 H (0.9-1.1) Sodium (136-145) mmol/L Potassium (3.5-5.1) mmol/L Chloride (98-107) mmol/L Carbon Dioxide (21-32) mmol/L Anion Gap (3-11) BUN (6-23) mg/dl Creatinine (0.6-1.4) mg/dl Est Cr Clr Drug Dosing ml/min Est GFR ( Amer) ml/min Est GFR (Non-Af Amer) ml/min BUN/Creatinine Ratio (10-20) Glucose (70-99(Fasting)) mg/dl Calcium (8.5-10.1) mg/dl Magnesium (1.7-2.4) mg/dl 25-OH Vitamin D Total (30-100) ng/ml Lyme Disease IgG Ab (Negative) Lyme Disease IgM Ab (Negative) Diagnostic Findings Hip X-Ray 04/26/22 08:49 XR hip LT min 2V CLINICAL HISTORY: Left hip pain TECHNIQUE: 2 views of the right hip were obtained. Comparison: None available at the time of this dictation. FINDINGS: There is no evidence of an acute fracture. Degenerative changes are seen in the hip joint. No soft tissue abnormality is seen. IMPRESSION: Degenerative changes without evidence of acute abnormality. ACT 112: Negative or not required by law. Electronically signed by: Eliu Silverio M.D. 04/26/2022 11:21 AM Knee X-Ray 04/26/22 08:54 XR knee RT 1 or 2V routine, XR knee LT 1 or 2V routine HISTORY: 66 years-old Male h/o bilat knee pain chronic bilateral knee pain COMPARISON: None TECHNIQUE: 2 views of the bilateral knees FINDINGS: RIGHT: Moderate to severe tricompartmental osteoarthritis with trace joint effusion. No acute fracture, dislocation or osseous erosion. Arterial calcifications. Mild diffuse soft tissue prominence. LEFT: Moderate to severe tricompartmental osteoarthritis with trace joint effusion. No acute fracture, dislocation or osseous erosion. Arterial calcifications. Mild diffuse soft tissue prominence. IMPRESSION: 1. No acute fracture or dislocation. 2. Moderate to severe tricompartmental osteoarthritis of the knees. 3. Diffuse soft tissue swelling. ACT 112: Negative or not required by law. The above report was generated using voice recognition software. It may contain grammatical, syntax or spelling errors. Electronically signed by: Guillermo Zimmer M.D. 04/26/2022 11:19 AM Knee X-Ray 04/26/22 08:54 XR knee RT 1 or 2V routine, XR knee LT 1 or 2V routine HISTORY: 66 years-old Male h/o bilat knee pain chronic bilateral knee pain COMPARISON: None TECHNIQUE: 2 views of the bilateral knees FINDINGS: RIGHT: Moderate to severe tricompartmental osteoarthritis with trace joint effusion. No acute fracture, dislocation or osseous erosion. Arterial calcifications. Mild diffuse soft tissue prominence. LEFT: Moderate to severe tricompartmental osteoarthritis with trace joint effusion. No acute fracture, dislocation or osseous erosion. Arterial calcifications. Mild diffuse soft tissue prominence. IMPRESSION: 1. No acute fracture or dislocation. 2. Moderate to severe tricompartmental osteoarthritis of the knees. 3. Diffuse soft tissue swelling. ACT 112: Negative or not required by law. The above report was generated using voice recognition software. It may contain grammatical, syntax or spelling errors. Electronically signed by: Guillermo Zimmer M.D. 04/26/2022 11:19 AM Renal Ultrasound 04/26/22 10:07 RENAL ULTRASOUND HISTORY: Follow up study in a patient with history of renal calculi hx stones, weakness, eval pyelo/obstructing stones COMPARISON: CT 11/04/2021 FINDINGS: Limited exam secondary to patient body habitus. Right kidney: 12.2 cm. No hydronephrosis. Mild diffuse cortical thinning. Left kidney: 11.4 cm. Chronic calyceal dilation in the mid upper pole left kidney. Mild diffuse cortical thinning. Bladder: No bladder wall thickening. The bilateral ureteral jets were identified. IMPRESSION: 1. Limited exam secondary to patient body habitus. 2. The previously described bilateral nephrolithiasis are not visualized by ultrasound. No hydronephrosis. 3. Cortical thinning of the left greater than right kidneys with chronic calyceal dilation of the mid upper pole left kidney. ACT 112: Negative or not required by law. Electronically signed by: Guillermo Zimmer M.D. 04/26/2022 12:23 PM PG Care Time/CCT Total # of Minutes Spent Total Time Spent with Patient: Total time spent is greater than 50% in coordination of care (as documented) at patient's floor/unit and/or counseling patient: Coding Level of Care Code 38722 SUB INP/OBS CARE 3/50MIN Diagnoses Generalized weakness R53.1 Supratherapeutic INR R79.1 Recurrent urinary tract infection N39.0 Acute renal insufficiency N28.9 Atrial fibrillation I48.91 History of Abhijit-en-Y gastric bypass Z98.84 Recurrent deep vein thrombosis (DVT) I82.409 RANDY on CPAP G47.33; Z99.89 Hypokalemia E87.6 Hypomagnesemia E83.42 BMI 45.0-49.9, adult Z68.42 Diarrhea R19.7 Diarrhea type: unspecified type Left hip pain M25.552 (12) Diarrhea Diarrhea type: unspecified type Qualified Code(s): R19.7 - Diarrhea, unspecified
--- NOTE | 2022-04-26 08:56 | Orthopedic Consultation ---
Date of Consultation April 26, 2022 Assessment & Plan (1) Left hip pain: Patient with left hip pain and also history of bilateral knee pain in the past which does not appear to be bothering him at this time. Plans will be to obtain x-rays of the right and left knees at this time as well as the left hip. With as little discomfort he is having in the knees, I am not sure knee injections are warranted at this time. We will also review his left hip film. If significant arthritis is noted, patient could be a candidate for a left hip steroid injection that will likely need to be arranged through outpatient setting for here at the hospital to be done by radiology. We will review films today and [facility] will see the patient later today to finalize plans. History of Present Illness Reason for Consultation: Question of bilateral knee pain and left hip pain. Attending Physician: Brent Enrique MD History of Present Illness 66-year-old male with past medical history of anemia, atrial fibrillation on chronic Coumadin therapy, bilateral hydrocele, CHF, CKD stage III, renal calculi, morbid obesity, RANDY on CPAP, pyelonephritis of left kidney in the past, type 2 diabetes mellitus was admitted at the end of March of this year for generalized weakness/deconditioning, supratherapeutic INR greater than 9, acute renal insufficiency. A consult was placed for [facility] for bilateral knee pain right greater than left. Patient was also having left hip pain. Patient states that he had received injections at her office in the past. He feels that his last injections were in the last 2 to 3 months. These injections were of his knees. He cannot remember the date. He also complains o f left hip pain of which is his greatest complaint today. He states that his knees are not overtly painful today but they pop and crack whenever he gets up to ambulate. He does not state that they are very painful. He states that when they tried to logroll him or get him up to move, that he has moderate pain in his left hip and groin. This has been somewhat better with some of the treatments they have been using on the hip. However he continues to have pain. Patient states that he has had Lyme's disease in the past and feels that this is also contributed to his problems. Currently he is in bed and appears comfortable. Allergies Allergy/AdvReac Type Severity Reaction Status Date / Time No Known Allergies Allergy Verified 04/13/22 15:48 Home Medications Medication Instructions Recorded Confirmed Type ascorbic acid (vitamin C) 500 mg 500 mg PO DAILY 01/03/19 04/13/22 History chewable tablet (Vitamin C) calcium 650 mg-vitamin D3 12.5 1 tab PO DAILY 01/03/19 04/13/22 History mcg-vitamin K 40 mcg chewable tablet (Viactiv) cholecalciferol (vitamin D3) 10 400 unit PO DAILY 01/03/19 04/13/22 History mcg (400 unit) chewable tablet (Vitamin D3) fexofenadine 180 mg tablet 180 mg PO DAILY 01/03/19 04/13/22 History (Anju Allergy) aspirin 81 mg tablet,delayed 81 mg PO QAM #30 tabs 02/26/19 04/13/22 Rx release (Ecotrin Low Strength) oxybutynin chloride 10 mg 10 mg PO BID 07/24/21 04/13/22 History tablet,extended release 24 hr atorvastatin 20 mg tablet 20 mg PO DAILY #90 tabs 07/25/21 04/13/22 Rx metoprolol tartrate 50 mg tablet 50 mg PO BID #180 tabs 07/25/21 04/13/22 Rx potassium chloride 10 mEq 10 meq PO DAILY #90 tabs 07/25/21 04/13/22 Rx tablet,extended release miconazole nitrate 2 % topical 1 applic EXT BID #85 grams 07/29/21 04/13/22 Rx powder (Desenex) omeprazole 20 mg tablet,delayed 20 mg PO DAILY #30 tabs 08/15/21 04/13/22 Rx release multivitamin 1 tab PO DAILY 11/03/21 04/13/22 History polyethylene glycol 3350 17 17 g PO DAILY 11/03/21 04/13/22 History gram/dose oral powder (Miralax) warfarin 5 mg tablet 5 mg PO DAILY@1600 #30 tabs 11/09/21 04/13/22 Rx diltiazem HCl 120 mg 120 mg PO DAILY #90 caps 01/16/22 04/13/22 Rx capsule,extended release 12 hr furosemide 20 mg tablet 40 mg PO DAILY #180 tabs 02/01/22 04/13/22 Rx Patient History Medical History Anemia Atrial fibrillation Bilateral hydrocele CHF (congestive heart failure) CKD (chronic kidney disease), stage III Kidney stones Morbid obesity with BMI of 50.0-59.9, adult New onset atrial fibrillation RANDY on CPAP Pyelonephritis of left kidney Type 2 diabetes mellitus Urinary pain Surgical History History of nephrostomy History of Abhijit-en-Y gastric bypass Family History Other Family history non-contributory Social History Smoking Status: Never smoker Second Hand Exposure: No; Hx Alcohol Use: No Hx Substance Use: No Preferred Language: Estonian Communication Ability: Effective Admissions Consultant Required: No Beliefs That Will Affect Care: None marital status: Single Current Living Situation: Alone current occupational status: employed How many Children do You have: 0 Other Information That Helps Us Care for You: No Feels Safe at Home: Yes Safety Concerns: Feels Safe At This Time Dental Care, Regularly: No Physical Activity Frequency: Other Assistive Devices: Bedside Commode, BiPap and Walker Physical Exam Physical Exam: Patient is a 66-year-old morbidly obese white male who is alert and oriented x3, no acute distress, pleasant and cooperative. On examination, most of his morbid obesity is upper body. He does have some obesity of his lower extremities but examination of bilateral knees shows no apparent effusions. The patella, patellar tendon and quad tendon are palpable and nontender on palpation. There is no erythema of the knees at this time and again no swelling. I am able to take him through gentle range of motion of both knees at this time without pain. He does complain of left hip pain whenever I do passive range of motion of the left knee and doing passive extension of the hip. He does have some mild crepitus bilaterally of the knees. Again no overt pain whenever I am taking him through range of motion. Range of motion of the left hip causes him moderate pain with forward flexion and extension and with abduction and adduction. He denies any radiculopathy traveling down the left lower extremity to the foot. He denies any low back pain. Palpation over the lateral hip and also the anterior portion of the hip at the groin does cause him some mild discomfort. Results & Data ([facility]) Vital Signs (Past 12 Hours) Vital Signs Temp Pulse Pulse Resp BP BP Pulse Ox 04/26/22 07:17 36.5 C 102 H 18 113/75 97 04/26/22 03:58 36.6 C 92 H 18 137/66 96 04/26/22 00:48 04/25/22 23:59 74 04/25/22 23:12 36.5 C 88 18 98/66 L 96 O2 Del Method 04/26/22 07:17 Room Air 04/26/22 03:58 Room Air 04/26/22 00:48 Room Air 04/25/22 23:59 04/25/22 23:12 Room Air
[2022-04-26] MEDS: PSYLLIUM or GUAR GUM FIBER POWDER PACKET PO SCH ×2 (09:27→21:36)
[2022-04-26] MEDS: CHOLESTYRAMINE LIGHT 4 GM PKT PO SCH ×2 (09:27→22:48)
[2022-04-26] MEDS: FEXOFENADINE HCL 180 MG TAB PO SCH (09:30)
[2022-04-26] MEDS: ASPIRIN 81 MG ECTAB PO SCH (09:30)
[2022-04-26] MEDS: dilTIAZem HCL 120 MG CAPCR PO SCH (09:30)
[2022-04-26] MEDS: PANTOprazole 40 MG TAB PO SCH (09:30)
[2022-04-26] MEDS: CHOLECALCIFEROL 400 UNITS 10 MCG TAB PO SCH (09:32)
[2022-04-26] MEDS: ATORVASTATIN 20 MG TAB PO SCH (09:32)
[2022-04-26] MEDS: DICLOFENAC SOD 1% GEL 100 GM TUBE EXT SCH ×2 (09:33→21:34)
[2022-04-26] MEDS: OXYBUTYNIN CHLORIDE XL 5 MG TABCR PO SCH ×2 (09:33→21:36)
[2022-04-26] MEDS: METOPROLOL TARTRATE 50 MG TAB PO SCH (09:33)
[2022-04-26 09:36] LABS: BUN Creatinine Ratio 15.2 (10-20); Calcium 7.9 mg/dl (8.5-10.1); Creatinine Clr Calc Pharmacy 70.2 ml/min; Est GFR (African American) 50.5 ml/min; Est GFR (Non-African American) 43.5 ml/min; Magnesium 1.8 mg/dl (1.7-2.4); Potassium 4.2 mmol/L (3.5-5.1)
[2022-04-26] MEDS: MICONAZOLE NITRATE POWDER 85 GM EXT SCH ×2 (09:37→21:35)
[2022-04-26 09:58] LABS: Lyme Ab IgG w/WB Rflx Negative (Negative); Lyme Ab IgM w/WB Rflx Negative (Negative)
[2022-04-26] MEDS ORDERED: MAGNESIUM SULFATE / D5W 1 GM/100 ML BAG IV ONE (10:03)
[2022-04-26] MEDS ORDERED: FUROSEMIDE 40 MG TAB PO ONE (10:04)
--- NOTE | 2022-04-26 11:20 | XRay Report ---
XR knee RT 1 or 2V routine, XR knee LT 1 or 2V routine HISTORY: 66 years-old Male h/o bilat knee pain chronic bilateral knee pain COMPARISON: None TECHNIQUE: 2 views of the bilateral knees FINDINGS: RIGHT: Moderate to severe tricompartmental osteoarthritis with trace joint effusion. No acute fracture, disl ocation or osseous erosion. Arterial calcifications. Mild diffuse soft tissue prominence. LEFT: Moderate to severe tricompartmental osteoarthritis with trace joint effusion. No acute fracture, disl ocation or osseous erosion. Arterial calcifications. Mild diffuse soft tissue prominence. IMPRESSION: 1. No acute fracture or dislocation. 2. Moderate to severe tricompartmental osteoarthritis of the knees. 3. Diffuse soft tissue swelling. ACT 112: Negative or not required by law. The above report was generated using voice recognition software. It may contain grammatical, syntax o r spelling errors. Electronically signed by: Guillermo Zimmer M.D. 04/26/2022 11:19 AM
--- NOTE | 2022-04-26 11:23 | XRay Report ---
XR hip LT min 2V CLINICAL HISTORY: Left hip pain TECHNIQUE: 2 views of the right hip were obtained. Comparison: None available at the time of this dictation. FINDINGS: There is no evidence of an acute fracture. Degenerative changes are seen in the hip joint. No soft ti ssue abnormality is seen. IMPRESSION: Degenerative changes without evidence of acute abnormality. ACT 112: Negative or not required by law. Electronically signed by: Eliu Silverio M.D. 04/26/2022 11:21 AM
--- NOTE | 2022-04-26 12:25 | Ultrasound Report ---
RENAL ULTRASOUND HISTORY: Follow up study in a patient with history of renal calculi hx stones, weakness, eval pyelo/ obstructing stones COMPARISON: CT 11/04/2021 FINDINGS: Limited exam secondary to patient body habitus. Right kidney: 12.2 cm. No hydronephrosis. Mild diffuse cortical thinning. Left kidney: 11.4 cm. Chronic calyceal dilation in the mid upper pole left kidney. Mild diffuse corti tesfaye thinning. Bladder: No bladder wall thickening. The bilateral ureteral jets were identified. IMPRESSION: 1. Limited exam secondary to patient body habitus. 2. The previously described bilateral nephrolithiasis are not visualized by ultrasound. No hydronephr osis. 3. Cortical thinning of the left greater than right kidneys with chronic calyceal dilation of the mid upper pole left kidney. ACT 112: Negative or not required by law. Electronically signed by: Guillermo Zimmer M.D. 04/26/2022 12:23 PM
[2022-04-26] MEDS: WARFARIN SOD 3 MG TAB PO SCH (15:25)
[2022-04-26] MEDS: LOPERAMIDE HCL 2 MG CAP PO PRN (17:44)
[2022-04-26] MEDS: METOPROLOL TARTRATE 25 MG TAB PO SCH (21:35)
[2022-04-27] MEDS: CEFEPIME 2,000 MG in SYRINGE 0 ML IV SCH ×3 (05:31→20:10)
[2022-04-27 07:07] LABS: Hematocrit (blood only) 36.2 % (42.0-52.0); Hemoglobin 11.6 g/dl (14.0-18.0); Mean Corpuscular Hemoglobin 29.7 pg (25.0-34.0); Mean Corpuscular Volume 92.6 fL (80.0-100.0); Platelet Count 262 K/uL (130-400); RDW Coefficient of Variation 15.4 % (11.5-14.5); RDW Standard Deviation 52.5 fL (36.4-46.3); Red Blood Count 3.91 M/uL (4.70-6.10); White Blood Count 4.61 K/ul (4.8-10.8)
[2022-04-27 07:27] LABS: BUN Creatinine Ratio 16.9 (10-20); Bilirubin,Total 0.5 mg/dl (0.2-1.0); Calcium 7.7 mg/dl (8.5-10.1); Creatinine Clr Calc Pharmacy 78.1 ml/min; Est GFR (African American) 57.1 ml/min; Est GFR (Non-African American) 49.3 ml/min; Potassium 4.3 mmol/L (3.5-5.1)
[2022-04-27 07:28] LABS: INR 2.1 (0.9-1.1); Prothrombin Time 21.7 Seconds (9.0-12.0)
--- NOTE | 2022-04-27 07:58 | Hospitalist Progress Note ---
Date of Service April 27, 2022 Assessment & Plan (1) Generalized weakness: Plan: acute moderate risk Significant deconditioning with lack of medical care as an outpatient pressure changes to skin requiring special attention No acute CVA suspected given lack of lateralizing deficit or acute change in history Multiple areas of intertrigo with improvement after wound care Focal left hip pain Voltaren gel is improved discomfort Orthopedics consulted -- imaging obtained, ?benefit from injection whether inpatient or outpatient ESR 13, low susp for PMR Lyme negative (prior history of such) Cortisol not low Stool studies negative, given diarrhea UA/cx w/ Ecoli -- abx started and continued as below 04/27 --> +diarrhea this morning, imodium x 1 and monitor. Further diarrhea repeat cdiff to be safe but was negative earlier but remains on abx --> Reporting improved strength, working better with therapy on current abx for UTI --> Does have area/draining lesions to LEFT LATERAL LOWER EXT -- non painful/erythematous at present but drainage and asked RN to collect sample. Wound RN consulted and following Will continue current abx unless clinically worsens given improvement and monitor culture for now PT/OT eval: notes appear to recommend SNF. (2) Diarrhea: Plan: slowing w/ treatment as above stool studies negative continue Questran, metamucil antidiarrheals available as needed chromogranin A level pending given ongoing diarrhea for further eval ?check fecal fat -- defer to GI as asking GI to weigh back in given ongoing diarrhea as prior notes indicate possible outpt scope if ongoing issues (3) Recurrent urinary tract infection: Plan: Metabolic encephalopathy on admit w/ weakness/encephalopathy, KINJAL and UTI on admit Mentation back to baseline w/ treatment as outlined, Cr improving Urine cx w/ Ecoli, MDR Given weakness and improvement w/ abx elected to treat and will continue --> sensitive to Cefepime, Ertapenem, Gentamicin, Meropenem, Zosyn, Bactrim - will continue Cefepime for now while inpatient, once stable for d/c can complete course (if any remaining) w/ Bactrim (on day 6 currently) (4) Supratherapeutic INR: Plan: acute serious risk, typically anticoagulated for afib No acute bleed suspected. He is not anemic. INR > 9.6 as his warfarin dosing has not been monitored since November Vitamin K 5 mg IV given INR 2.1 and continued to trend down on 3mg daily --> ordered additional 1mg for today and placed order for 3/4mg alternating doses and will monitor INR in AM/further adjustments as needed in light of continued abx use will monitor INR daily (5) Acute renal insufficiency: Plan: *Acute kidney failure, CKD3 Suspect due to overdiuresis with Lasix in setting of loose stools renal function has been gradually improving off his lasix however Cr 1.65 from 1.45 on 04/26 and normalized on repeat and BPs improved Will plan to resume his lasix for tomorrow (04/28) if kidney function/BP remains stable Avoid nephrotoxic agents/renal dose as able when needed (6) Atrial fibrillation: Plan: chronic and stable , Continue rate control with metoprolol tartrate and diltiazem Anticoagulation as above --> increased metoprolol to 25mg BID for evening 04/26 given elevated HRs and appears he is possibly to be on 50mg BID at home but unsure of his actual dose Rates remain stable and his BP 162/93 and will increase to 50mg BID for this evening and monitor K 4.3, Mag 2.0 -- keep ~4, ~2 (7) History of Abhijit-en-Y gastric bypass: Plan: pt is bothered by persistent diarrhea, negative for infection, now on fiber, colestyramine, and imodium with some improvement will add bisthmuth 04/25/22 reports less diarrhea 38 but some AM 3/9 and continue current plan as outlined for now and monitor (8) Recurrent deep vein thrombosis (DVT): Plan: chronic and stable Anticoagulation as above, INR therapeutic and monitor need outpt monitoring of INR (9) RANDY on CPAP: Plan: chronic and stable CPAP at bedtime per RT notes, patient states he DOES NOT WEAR all the time at home and doesn't want to wear here -- would encourage compliance, especially if remaining inpatient (has been ~2 weeks) (10) Hypokalemia: Plan: acute moderate risk, self limited furosemide has mj held,, stools are improving possibly resume lasix for tomorrow (11) Hypomagnesemia: Plan: acute self limited, replaced. and keeping closer to 2 (12) BMI 45.0-49.9, adult: Plan: *Morbid obesity with BMI=45 chornic and stable but directly affects his care Patient admitted with weakness, difficulty ambulating has BMI=45 (13) Left hip pain: Plan: L hip and b/l knees -- significant osteoarthiritis ortho consulted pain control imaging ordered for further eval -- benefit from hip replacement but will need further discussion outpatient regarding possible injection first Lyme testing negative Renal US to eval for stones given hx, negative for such. tx uti as above PT/OT consulted, planning rehab, Cm following (14) Hypocalcemia: Plan: ? from excessive lasix use GENERAL DENTIST Ca 7.7 of note, albumin prior 2.1 and will check in AM for corrected Ca level Plan continued inpatient stay working on rehab placement improvement w/ PT/OT since abx for UTI cx left leg/monitor for any worsening or need for escalation of abx Admission and Anticipated Discharge Date Admission Date: April 13, 2022 Supervising Physician Co-Signing Physician Notes The patient was not seen by me. The chart was reviewed. Case discussed with NIRU Flanagan. Agree with assessment and plan Subjective eval this morning, just got done working with physical therapy. Continued improvement noted and patient reporting feeling stronger. had some liquid diarrhea this morning left leg posteriorly draining bloody/green discharge -- asked RN to culture. On cefepime for UTI but may need additional agent. Remains on abx for UTI with Cefepime, repeat cdiff ordered while on abx but did get dose of Imodium this morning. Not having any abdominal pain/nausea or vomiting. No chest pain/shortness of breath. R sided discomfort no longer present as yesterday. Questions/concerns addressed at this time. Physical Exam Physical Exam: morbidly obese male sitting up in bed, just got done working with therapy, NAD Skin: intertrigo is improved dramatically HEENT: head normocephalic, atraumatic, mmm, trachea midline Resp: no distress, diminished in the bases, no wheezing/crackles CV: irregularly irregular (rates 80-low 100s), +murmur, LE edema, pulses palpable, waffle boots in place, chronic venous stasis changes lateral left leg w/ wound, draining bloody/greenish material (RN to culture) GI: +obese, distended, +BS throughout, nontender MSK/Neuro: rom in knees intact, some crepitus L hip tender to palpation w/ active ROM, moderate pain w/ flexion/extension/abduction/adduction Psych: AOx3, pleasant and cooperative Results & Data Results & Data ([facility]) Vital Signs (Past 12 Hours) Vital Signs Temp Pulse Resp BP BP Pulse Ox O2 Del Method 04/27/22 07:35 36.7 C 95 H 18 161/83 H 97 Room Air 04/27/22 04:08 36.5 C 80 20 124/72 96 Room Air 04/26/22 23:24 36.8 C 93 H 20 128/64 96 Room Air 04/26/22 22:42 Room Air Laboratory Results 04/27/22 04/27/22 04/27/22 Range/Units 06:33 06:33 06:33 WBC (4.8-10.8) K/ul RBC (4.70-6.10) M/uL Hgb (14.0-18.0) g/dl Hct (42.0-52.0) % MCV (80.0-100.0) fL MCH (25.0-34.0) pg MCHC (32.0-36.0) g/dL RDW Std Deviation (36.4-46.3) fL RDW Coeff of Evan (11.5-14.5) % Plt Count (130-400) K/uL MPV (9.4-12.4) fL ESR 13 (0-20) mm/hr PT 21.7 H (9.0-12.0) Seconds INR 2.1 H (0.9-1.1) Sodium 139 (136-145) mmol/L Potassium 4.3 (3.5-5.1) mmol/L Chloride 114 H (98-107) mmol/L Carbon Dioxide 25 (21-32) mmol/L Anion Gap 0 L (3-11) BUN 25 H (6-23) mg/dl Creatinine 1.48 H (0.6-1.4) mg/dl Est Cr Clr Drug Dosing 78.1 ml/min Est GFR ( Amer) 57.1 ml/min Est GFR (Non-Af Amer) 49.3 ml/min BUN/Creatinine Ratio 16.9 (10-20) Glucose 80 (70-99(Fasting)) mg/dl Calcium 7.7 L (8.5-10.1) mg/dl Magnesium 2.0 (1.7-2.4) mg/dl Total Bilirubin 0.5 (0.2-1.0) mg/dl AST 21 (13-39) U/L ALT 25 (7-52) U/L Alkaline Phosphatase Pending Total Protein Pending Albumin Pending Globulin Pending Albumin/Globulin Ratio Pending PTH Intact (12.0-88.0) pg/ml 04/27/22 04/27/22 Range/Units 06:33 06:33 WBC 4.61 L (4.8-10.8) K/ul RBC 3.91 L (4.70-6.10) M/uL Hgb 11.6 L (14.0-18.0) g/dl Hct 36.2 L (42.0-52.0) % MCV 92.6 (80.0-100.0) fL MCH 29.7 (25.0-34.0) pg MCHC 32.0 (32.0-36.0) g/dL RDW Std Deviation 52.5 H (36.4-46.3) fL RDW Coeff of Evan 15.4 H (11.5-14.5) % Plt Count 262 (130-400) K/uL MPV 9.0 L (9.4-12.4) fL ESR (0-20) mm/hr PT (9.0-12.0) Seconds INR (0.9-1.1) Sodium (136-145) mmol/L Potassium (3.5-5.1) mmol/L Chloride (98-107) mmol/L Carbon Dioxide (21-32) mmol/L Anion Gap (3-11) BUN (6-23) mg/dl Creatinine (0.6-1.4) mg/dl Est Cr Clr Drug Dosing ml/min Est GFR ( Amer) ml/min Est GFR (Non-Af Amer) ml/min BUN/Creatinine Ratio (10-20) Glucose (70-99(Fasting)) mg/dl Calcium (8.5-10.1) mg/dl Magnesium (1.7-2.4) mg/dl Total Bilirubin (0.2-1.0) mg/dl AST (13-39) U/L ALT (7-52) U/L Alkaline Phosphatase Total Protein Albumin Globulin Albumin/Globulin Ratio PTH Intact 24.1 (12.0-88.0) pg/ml PG Care Time/CCT Total # of Minutes Spent Total Time Spent with Patient: Total time spent is greater than 50% in coordination of care (as documented) at patient's floor/unit and/or counseling patient: Coding Level of Care Code 74860 SUB INP/OBS CARE 3/50MIN Diagnoses Generalized weakness R53.1 Diarrhea R19.7 Diarrhea type: unspecified type Recurrent urinary tract infection N39.0 Supratherapeutic INR R79.1 Acute renal insufficiency N28.9 Atrial fibrillation I48.91 History of Abhijit-en-Y gastric bypass Z98.84 Recurrent deep vein thrombosis (DVT) I82.409 RANDY on CPAP G47.33; Z99.89 Hypokalemia E87.6 Hypomagnesemia E83.42 BMI 45.0-49.9, adult Z68.42 Left hip pain M25.552 Hypocalcemia E83.51 (2) Diarrhea Diarrhea type: unspecified type Qualified Code(s): R19.7 - Diarrhea, unspecified
[2022-04-27] MEDS: LOPERAMIDE HCL 2 MG CAP PO PRN ×2 (09:39→15:56)
[2022-04-27] MEDS: ATORVASTATIN 20 MG TAB PO SCH (09:41)
[2022-04-27] MEDS: METOPROLOL TARTRATE 25 MG TAB PO SCH (09:41)
[2022-04-27] MEDS: OXYBUTYNIN CHLORIDE XL 5 MG TABCR PO SCH ×2 (09:41→20:09)
[2022-04-27] MEDS: PANTOprazole 40 MG TAB PO SCH (09:41)
[2022-04-27] MEDS: CHOLECALCIFEROL 400 UNITS 10 MCG TAB PO SCH (09:41)
[2022-04-27] MEDS: DICLOFENAC SOD 1% GEL 100 GM TUBE EXT SCH ×2 (09:42→20:09)
[2022-04-27] MEDS: MICONAZOLE NITRATE POWDER 85 GM EXT SCH ×2 (09:42→20:10)
[2022-04-27] MEDS: FEXOFENADINE HCL 180 MG TAB PO SCH (09:42)
[2022-04-27] MEDS: ASPIRIN 81 MG ECTAB PO SCH (09:42)
[2022-04-27] MEDS: CHOLESTYRAMINE LIGHT 4 GM PKT PO SCH ×2 (10:51→20:10)
[2022-04-27] MEDS: dilTIAZem HCL 120 MG CAPCR PO SCH (10:51)
[2022-04-27] MEDS: PSYLLIUM or GUAR GUM FIBER POWDER PACKET PO SCH ×2 (10:51→20:10)
[2022-04-27 15:14] LABS: Albumin Globulin Ratio 0.5 (0.9-2); Albumin Level 1.8 gm/dl (3.4-5.0); Globulin 3.4 gm/dl (2.5-4.0); Total Protein 5.2 gm/dl (6.0-8.3)
[2022-04-27] MEDS ORDERED: WARFARIN SOD 1 MG TAB PO SCH (16:00)
[2022-04-27] MEDS: WARFARIN SOD 3 MG TAB PO SCH (16:01)
--- NOTE | 2022-04-27 19:31 | CT Scan Report ---
CT abd pelvis wo con CLINICAL HISTORY: weakness, continued diarrhea, protein loss TECHNIQUE: Helical axial images of the abdomen and pelvis were obtained. Automated dose lowering tech niques and/or adjustment according to patient size were utilized for this exam. This exam was perfor med without intravenous contrast. CT DOSE: 1912.13 mGy.cm COMPARISON: None available at the time of this dictation. FINDINGS: Lower chest: Bibasilar atelectasis versus scarring is seen. Pleural plaques are partially visualized . Liver: Hepatic steatosis is noted. Gallbladder and biliary tree: Patient is status post cholecystectomy. No intra- or extrahepatic bilia ry ductal dilation. Pancreas: Unremarkable, no focal lesions. Spleen: Unremarkable. Adrenals: Unremarkable. Kidneys and ureters: Nonobstructive nephrolithiasis is seen. Bladder: Unremarkable. Reproductive organs: Unremarkable. Bowel: Some loops of bowel are excluded from view however no evidence of obstruction is seen. A moder ate hiatal hernia is seen. Lymph nodes Retroperitoneal: Subcentimeter lymph nodes are noted. Pelvic: Unremarkable. Mesenteric: Unremarkable. Peritoneum: Normal. Vessels: Atherosclerotic calcifications are seen. An IVC filter is seen. Abdominal wall: There is diastases of the abdominal wall with nondistended loops of bowel. Body wall edema is noted on the right. Bones: Degenerative changes are seen in the spine and bilateral hip joints. T11 compression deformity is seen. IMPRESSION: 1. Exam is significantly limited by artifact from body wall contacting the gantry. Large ventral her shakira is again seen without evidence of obstruction. 2. Nonobstructive nephrolithiasis. 3. Hepatic steatosis. ACT 112: Negative or not required by law. Electronically signed by: Eliu Silverio M.D. 04/27/2022 7:29 PM
[2022-04-27] MEDS ORDERED: METOPROLOL TARTRATE 50 MG TAB PO SCH (21:00)
[2022-04-27] MEDS: ACETAMINOPHEN 325 MG TAB PO PRN (23:20)
[2022-04-28] MEDS: CEFEPIME 2,000 MG in SYRINGE 0 ML IV SCH ×2 (05:14→14:31)
[2022-04-28 06:44] LABS: Hematocrit (blood only) 33.2 % (42.0-52.0); Hemoglobin 10.8 g/dl (14.0-18.0); Mean Corpuscular Hemoglobin 29.8 pg (25.0-34.0); Mean Corpuscular Hgb Conc 32.5 g/dL (32.0-36.0); Mean Corpuscular Volume 91.5 fL (80.0-100.0); Mean Platelet Volume 9.3 fL (9.4-12.4); Platelet Count 258 K/uL (130-400); RDW Coefficient of Variation 15.5 % (11.5-14.5); RDW Standard Deviation 52.2 fL (36.4-46.3); Red Blood Count 3.63 M/uL (4.70-6.10); White Blood Count 4.82 K/ul (4.8-10.8)
[2022-04-28 07:11] LABS: Alanine Aminotransferase 22 U/L (7-52); Albumin Globulin Ratio 0.5 (0.9-2); Albumin Level 1.7 gm/dl (3.4-5.0); Anion Gap 1 (3-11); Aspartate Aminotransferase 21 U/L (13-39); BUN Creatinine Ratio 17.6 (10-20); Bilirubin,Total 0.4 mg/dl (0.2-1.0); Blood Urea Nitrogen 26 mg/dl (6-23); Calcium 7.5 mg/dl (8.5-10.1); Carbon Dioxide 22 mmol/L (21-32); Chloride 115 mmol/L (98-107); Creatinine Clr Calc Pharmacy 77.9 ml/min; Est GFR (African American) 57.1 ml/min; Est GFR (Non-African American) 49.3 ml/min; Globulin 3.2 gm/dl (2.5-4.0); Glucose 73 mg/dl (70-99(Fasting)); Magnesium 1.9 mg/dl (1.7-2.4); Potassium 4.1 mmol/L (3.5-5.1); Sodium 138 mmol/L (136-145); Total Protein 4.9 gm/dl (6.0-8.3)
[2022-04-28 07:22] LABS: INR 2.1 (0.9-1.1); Prothrombin Time 21.3 Seconds (9.0-12.0)
[2022-04-28 07:32] LABS: Alkaline Phosphatase 66 U/L (34-104)
--- NOTE | 2022-04-28 08:14 | Hospitalist Progress Note ---
Date of Service April 28, 2022 Assessment & Plan Admission and Anticipated Discharge Date Admission Date: April 13, 2022 Results & Data Results & Data ([facility]) Vital Signs (Past 12 Hours) Vital Signs Temp Pulse Pulse Resp BP BP Pulse Ox 04/28/22 07:38 36.5 C 90 16 92/50 L 97 04/28/22 04:17 36.6 C 72 20 119/68 98 04/28/22 00:13 36.5 C 71 18 112/67 97 04/27/22 23:46 71 04/27/22 23:46 O2 Del Method 04/28/22 07:38 Room Air 04/28/22 04:17 Room Air 04/28/22 00:13 Room Air 04/27/22 23:46 04/27/22 23:46 Room Air Laboratory Results 04/28/22 04/28/22 04/28/22 Range/Units 05:34 05:34 05:34 WBC 4.82 (4.8-10.8) K/ul RBC 3.63 L (4.70-6.10) M/uL Hgb 10.8 L (14.0-18.0) g/dl Hct 33.2 L (42.0-52.0) % MCV 91.5 (80.0-100.0) fL MCH 29.8 (25.0-34.0) pg MCHC 32.5 (32.0-36.0) g/dL RDW Std Deviation 52.2 H (36.4-46.3) fL RDW Coeff of Evan 15.5 H (11.5-14.5) % Plt Count 258 (130-400) K/uL MPV 9.3 L (9.4-12.4) fL PT 21.3 H (9.0-12.0) Seconds INR 2.1 H (0.9-1.1) Sodium 138 (136-145) mmol/L Potassium 4.1 (3.5-5.1) mmol/L Chloride 115 H (98-107) mmol/L Carbon Dioxide 22 (21-32) mmol/L Anion Gap 1 L (3-11) BUN 26 H (6-23) mg/dl Creatinine 1.48 H (0.6-1.4) mg/dl Est Cr Clr Drug Dosing 77.9 ml/min Est GFR ( Amer) 57.1 ml/min Est GFR (Non-Af Amer) 49.3 ml/min BUN/Creatinine Ratio 17.6 (10-20) Glucose 73 (70-99(Fasting)) mg/dl Calcium 7.5 L (8.5-10.1) mg/dl Magnesium 1.9 (1.7-2.4) mg/dl Total Bilirubin 0.4 (0.2-1.0) mg/dl AST 21 (13-39) U/L ALT 22 (7-52) U/L Alkaline Phosphatase 66 (34-104) U/L Total Protein 4.9 L (6.0-8.3) gm/dl Albumin 1.7 L (3.4-5.0) gm/dl Globulin 3.2 (2.5-4.0) gm/dl Albumin/Globulin Ratio 0.5 L (0.9-2) PTH Intact (12.0-88.0) pg/ml 04/27/22 04/27/22 Range/Units 06:33 06:33 WBC (4.8-10.8) K/ul RBC (4.70-6.10) M/uL Hgb (14.0-18.0) g/dl Hct (42.0-52.0) % MCV (80.0-100.0) fL MCH (25.0-34.0) pg MCHC (32.0-36.0) g/dL RDW Std Deviation (36.4-46.3) fL RDW Coeff of Evan (11.5-14.5) % Plt Count (130-400) K/uL MPV (9.4-12.4) fL PT (9.0-12.0) Seconds INR (0.9-1.1) Sodium (136-145) mmol/L Potassium (3.5-5.1) mmol/L Chloride (98-107) mmol/L Carbon Dioxide (21-32) mmol/L Anion Gap (3-11) BUN (6-23) mg/dl Creatinine (0.6-1.4) mg/dl Est Cr Clr Drug Dosing ml/min Est GFR ( Amer) ml/min Est GFR (Non-Af Amer) ml/min BUN/Creatinine Ratio (10-20) Glucose (70-99(Fasting)) mg/dl Calcium (8.5-10.1) mg/dl Magnesium (1.7-2.4) mg/dl Total Bilirubin (0.2-1.0) mg/dl AST (13-39) U/L ALT (7-52) U/L Alkaline Phosphatase 77 (34-104) U/L Total Protein 5.2 L (6.0-8.3) gm/dl Albumin 1.8 L (3.4-5.0) gm/dl Globulin 3.4 (2.5-4.0) gm/dl Albumin/Globulin Ratio 0.5 L (0.9-2) PTH Intact 24.1 (12.0-88.0) pg/ml PG Care Time/CCT Total # of Minutes Spent Total Time Spent with Patient: Total time spent is greater than 50% in coordination of care (as documented) at patient's floor/unit and/or counseling patient: Coding Diagnoses
[2022-04-28] MEDS: OXYBUTYNIN CHLORIDE XL 5 MG TABCR PO SCH (08:36)
[2022-04-28] MEDS: ASPIRIN 81 MG ECTAB PO SCH (08:36)
[2022-04-28] MEDS: dilTIAZem HCL 120 MG CAPCR PO SCH (08:37)
[2022-04-28] MEDS: CHOLECALCIFEROL 400 UNITS 10 MCG TAB PO SCH (08:38)
[2022-04-28] MEDS: PANTOprazole 40 MG TAB PO SCH (08:38)
[2022-04-28] MEDS: ATORVASTATIN 20 MG TAB PO SCH (08:38)
[2022-04-28] MEDS: FEXOFENADINE HCL 180 MG TAB PO SCH (08:38)
[2022-04-28] MEDS: DICLOFENAC SOD 1% GEL 100 GM TUBE EXT SCH (08:39)
[2022-04-28] MEDS: MICONAZOLE NITRATE POWDER 85 GM EXT SCH (08:39)
[2022-04-28] MEDS ORDERED: METOPROLOL TARTRATE 25 MG TAB PO SCH (09:00)
[2022-04-28] MEDS ORDERED: LOPERAMIDE HCL 2 MG CAP PO SCH (09:15)
[2022-04-28 09:17] LABS: Iron 79 mcg/dl (35-175); Unsaturated Iron Binding Cap < 55 mcg/dl (155-355)
--- NOTE | 2022-04-28 09:19 | Communication Note ---
Date of Service: April 28, 2022 GI was asked to come back and see the patient for ongoing diarrhea for more than a year. Spoke with the patient and he tells me he is having one loose bowel movement daily. no bleeding, melena, or abdominal pain. He tells me he is still unhappy with the quality of his stools. He admits that when he goes to get up from a seated or laying down position that he will sometimes end up having an accident with doing so. I discussed case with Dr. Cooley and at this time suspect that his overall lack of strength and mobility are likely playing a factor with the accidents. Continue fiber supplementation and questran bid. I will change imodium to a scheduled medication for once daily which can be increased as needed to a max of 8 tablets daily to see if this helps but would be cautious for any constipation. I will place an order for celiac panel. He will need an outpatient colonoscopy.
[2022-04-28 09:55] LABS: Ferritin 92.9 ng/ml (8-388)
[2022-04-28] MEDS: PSYLLIUM or GUAR GUM FIBER POWDER PACKET PO SCH (10:07)
[2022-04-28] MEDS: CHOLESTYRAMINE LIGHT 4 GM PKT PO SCH (13:00)
--- NOTE | 2022-04-28 13:14 | Discharge Summary ---
Date of Service April 28, 2022 Admission HPI Per Admitting Provider Hank Monzon is a 66-year-old male who presents to the ER with generalized weakness. He reports not having a healthcare provider since he was discharged from rehab the beginning of November last year. He has not had his INR checked since then in addition. During this time his cousin helps him getting him food. The patient does all his finances. He has used a walker " forever" for mobility but the distances have progressively become less due to bilateral weakness. He called EMS on Sunday to try and get some more help at home as his mobility has decreased slightly progressively. Apparently a workers compensation adjuster has been helping to get into a rehabilitation again. He called [facility] again today as he was unable to get up from the commode. He reports his last fall was in mid February which she did not seek medical attention for and his neighbors helped him out. He has been weak ever since having chronic diarrhea starting last year. No new acute change in his weakness. Admission Exam Per Admitting Provider Constitutional: WD/WN, vitals as above Eyes: PERRL, conjunctivae normal, anicteric sclerae Respiratory: normal respiratory effort, lungs clear to auscultation Cardiovascular: Rate/Rhythm: regular rate and + irregularly irregular Extremities: normal capillary refill and + pedal edema (1+ pitting b/l equal); no calf tenderness Gastrointestinal (Abdomen): normal bowel sounds, soft, nontender, no hepatosplenomegaly Skin: Venous stasis changes only Neurologic: moves all extremities and awake; not confused Motor/Sensory: no tremor and no sensory deficit Psychiatric: A+Ox3, euthymic affect Principal Diagnosis Weakness, UTI, diarrhea Discharge Exam General: morbidly obese male sitting up in bed, just got done working with therapy and continued improvement reported, NAD Skin: intertrigo is improved dramatically HEENT: head normocephalic, atraumatic, mmm, trachea midline Resp: no distress, diminished in the bases, no wheezing/crackles CV: irregularly irregular (rates 80-low 100s), +murmur, LE edema at baseline/unchanged, chronic venous stasis changes, Left lateral leg w/ wound, less drainage, no surrounding erythema, nonpainful GI: +obese, +BS throughout, LARGE ventral hernia, nontender/no warmth/erythema MSK/Neuro: rom in knees intact, some crepitus L hip tender to palpation w/ active ROM, mild-moderate pain w/ flexion/extension/abduction/adduction Psych: AOx3, pleasant and cooperative Discharge Data Allergies Allergy/AdvReac Type Severity Reaction Status Date / Time No Known Allergies Allergy Verified 04/13/22 15:48 Consultations 04/13/22 16:16 ED Decision to Admit Stat 04/17/22 12:38 Consult Gastroenterology Routine 04/26/22 08:47 Consult Orthopedic Surgery Routine Ordered Studies Chest X-Ray 04/13/22 14:05 SINGLE VIEW CHEST CLINICAL HISTORY: Generalized weakness. FINDINGS: 2 AP, portable, upright chest radiographs are compared to study dated 11/03/2021. The examination is degraded by portable technique and patient rotation. The heart is enlarged. The pulmonary vasculature is noncongested. Chronic interstitial thickening is similar to previous. There is chronic elevation of the right hemidiaphragm with bibasilar atelectasis. No airspace consolidation or large pleural effusion is identified. There are scattered calcified granulomas No pneumothorax is seen. The skeletal structures are o steopenic. The bony thorax is grossly intact. IMPRESSION: Cardiomegaly with no acute cardiopulmonary abnormality. ACT 112: Negative or not required by law. Electronically signed by: Karl Westbrook M.D. 04/13/2022 2:57 PM ECHOCARDIOGRAM 04/16/22 Normal LV size with hyperdynamic systolic function. EF >70%. No regional wall motion abnormalities. Mild concentric LVH. No significant valvular abnormalities. Technically difficult study. No significant change from prior study on 07/29/21 Hip X-Ray 04/26/22 08:49 XR hip LT min 2V CLINICAL HISTORY: Left hip pain TECHNIQUE: 2 views of the right hip were obtained. Comparison: None available at the time of this dictation. FINDINGS: There is no evidence of an acute fracture. Degenerative changes are seen in the hip joint. No soft tissue abnormality is seen. IMPRESSION: Degenerative changes without evidence of acute abnormality. ACT 112: Negative or not required by law. Electronically signed by: Eliu Silverio M.D. 04/26/2022 11:21 AM Knee X-Ray 04/26/22 08:54 XR knee RT 1 or 2V routine, XR knee LT 1 or 2V routine HISTORY: 66 years-old Male h/o bilat knee pain chronic bilateral knee pain COMPARISON: None TECHNIQUE: 2 views of the bilateral knees FINDINGS: RIGHT: Moderate to severe tricompartmental osteoarthritis with trace joint effusion. No acute fracture, dislocation or osseous erosion. Arterial calcifications. Mild diffuse soft tissue prominence. LEFT: Moderate to severe tricompartmental osteoarthritis with trace joint effusion. No acute fracture, dislocation or osseous erosion. Arterial calcifications. Mild diffuse soft tissue prominence. IMPRESSION: 1. No acute fracture or dislocation. 2. Moderate to severe tricompartmental osteoarthritis of the knees. 3. Diffuse soft tissue swelling. ACT 112: Negative or not required by law. The above report was generated using voice recognition software. It may contain grammatical, syntax or spelling errors. Electronically signed by: Guillermo Zimmer M.D. 04/26/2022 11:19 AM Knee X-Ray 04/26/22 08:54 XR knee RT 1 or 2V routine, XR knee LT 1 or 2V routine HISTORY: 66 years-old Male h/o bilat knee pain chronic bilateral knee pain COMPARISON: None TECHNIQUE: 2 views of the bilateral knees FINDINGS: RIGHT: Moderate to severe tricompartmental osteoarthritis with trace joint effusion. No acute fracture, dislocation or osseous erosion. Arterial calcifications. Mild diffuse soft tissue prominence. LEFT: Moderate to severe tricompartmental osteoarthritis with trace joint effusion. No acute fracture, dislocation or osseous erosion. Arterial calcifications. Mild diffuse soft tissue prominence. IMPRESSION: 1. No acute fracture or dislocation. 2. Moderate to severe tricompartmental osteoarthritis of the knees. 3. Diffuse soft tissue swelling. ACT 112: Negative or not required by law. The above report was generated using voice recognition software. It may contain grammatical, syntax or spelling errors. Electronically signed by: Guillermo Zimmer M.D. 04/26/2022 11:19 AM Renal Ultrasound 04/26/22 10:07 RENAL ULTRASOUND HISTORY: Follow up study in a patient with history of renal calculi hx stones, weakness, eval pyelo/obstructing stones COMPARISON: CT 11/04/2021 FINDINGS: Limited exam secondary to patient body habitus. Right kidney: 12.2 cm. No hydronephrosis. Mild diffuse cortical thinning. Left kidney: 11.4 cm. Chronic calyceal dilation in the mid upper pole left kidney. Mild diffuse cortical thinning. Bladder: No bladder wall thickening. The bilateral ureteral jets were identified. IMPRESSION: 1. Limited exam secondary to patient body habitus. 2. The previously described bilateral nephrolithiasis are not visualized by ultrasound. No hydronephrosis. 3. Cortical thinning of the left greater than right kidneys with chronic calyceal dilation of the mid upper pole left kidney. ACT 112: Negative or not required by law. Electronically signed by: Guillermo Zimmer M.D. 04/26/2022 12:23 PM Abdomen/Pelvis CT 04/27/22 16:47 CT abd pelvis wo con CLINICAL HISTORY: weakness, continued diarrhea, protein loss TECHNIQUE: Helical axial images of the abdomen and pelvis were obtained. Automated dose lowering techniques and/or adjustment according to patient size were utilized for this exam. This exam was performed without intravenous contrast. CT DOSE: 1912.13 mGy.cm COMPARISON: None available at the time of this dictation. FINDINGS: Lower chest: Bibasilar atelectasis versus scarring is seen. Pleural plaques are partially visualized. Liver: Hepatic steatosis is noted. Gallbladder and biliary tree: Patient is status post cholecystectomy. No intra- or extrahepatic biliary ductal dilation. Pancreas: Unremarkable, no focal lesions. Spleen: Unremarkable. Adrenals: Unremarkable. Kidneys and ureters: Nonobstructive nephrolithiasis is seen. Bladder: Unremarkable. Reproductive organs: Unremarkable. Bowel: Some loops of bowel are excluded from view however no evidence of obstruction is seen. A moderate hiatal hernia is seen. Lymph nodes Retroperitoneal: Subcentimeter lymph nodes are noted. Pelvic: Unremarkable. Mesenteric: Unremarkable. Peritoneum: Normal. Vessels: Atherosclerotic calcifications are seen. An IVC filter is seen. Abdominal wall: There is diastases of the abdominal wall with nondistended loops of bowel. Body wall edema is noted on the right. Bones: Degenerative changes are seen in the spine and bilateral hip joints. T11 compression deformity is seen. IMPRESSION: 1. Exam is significantly limited by artifact from body wall contacting the gantry. Large ventral hernia is again seen without evidence of obstruction. 2. Nonobstructive nephrolithiasis. 3. Hepatic steatosis. ACT 112: Negative or not required by law. Electronically signed by: Eliu Silverio M.D. 04/27/2022 7:29 PM Hospital Course (1) Generalized weakness: Patient presented with ongoing weakness since d/c from rehab last November and lack of follow up, called EMS as was unable to get up from his commode. Last fall in February which he didn't seek treatment for and had been attempting to get back into rehab w/ outpatient workers compensation adjuster Significant deconditioning with lack of medical care as an outpatient No acute CVA suspected given lack of lateralizing deficit or acute change in history ECHO w/o wma or significant valvular heart disease (trop on high sen 6 on admit, no CP/SOb reported) Multiple areas of intertrigo with improvement after wound care Also suspect UTI/ongoing diarrhea and lasix use/KINJAL and supratherapeutic INR contributing to presentation ESR 13, low susp for PMR, Lyme negative (prior hx of such and completed 21-28 day course Doxy outpatient). Cortisol not low CXR w/ cardiomegaly but without edema/volume overload or evidence for pneumonia Diarrhea -- GI consulted, stool studies negative. Did perform CTAP which was unrevealing for acute process placed on Questran BID, added Metamucil. diarrhea slowed, but having about 1 loose Bm daily reported Celiac panel sent prior to d/c, chromogranin A level also sent as diarrhea had been ongoing >1 year at this point Increased Metamucil to BID at discharge and to continue scheduled imodium as well and will need outpt GI f/u for endoscopic evaluation and f/u on send out testing Focal left hip pain Voltaren gel is improved discomfort Orthopedics consulted -- imaging obtained, ?benefit from injection to his L hip however ortho rec'd follow up outpatient. UTI -- multidrug resistant Ecoli -- placed on Cefepime, completed 7 days while inpatient Wound L lateral leg, no cellulitic appearance/abscess, no erythema but did have drainage. Cx obtained 04/27, no WBC/organisms seen, cx pending at d/c. Did complete 7 days cefepime while inpatient Rec'd continued wound care and f/u cultures no growth this morning but pin- point growth prior to discharge and will need f/u Of note, no blood cultures obtained on admission, and in patient w/ repeat urinary tract infections would rec obtaining if any concerns for infection in future prior to starting any abx (2) Diarrhea: slowing w/ treatment as above stool studies negative Continued Questran, Metamucil -- increased to BID antidiarrheals available as needed CTAP unrevealing Chromogranin A level pending given ongoing diarrhea for further eval , GI checking celiac panel-- pending at d/c Asked GI to check back in w/ patient, rec'd to schedule questran will need outpt f/u (3) Recurrent urinary tract infection: Metabolic encephalopathy on admit w/ weakness/encephalopathy, KINJAL and UTI on admit Mentation back to baseline w/ treatment as outlined, Cr improving and stable Urine cx w/ Ecoli, MDR -- treatment completed while inpatient 7 days Cefepime (4) Supratherapeutic INR: acute serious risk, typically anticoagulated for afib No acute bleed suspected. He is not anemic. INR > 9.6 as his warfarin dosing has not been monitored since November Vitamin K 5 mg IV given on admission INR stable on 3mg daily but was trending down and decided to increase to 3mg alternating w/ 4mg at discharge and rec repeat INR in next 3-5 days to ensure stability/no further adjustments required (had been on INR 2.1 and continued to trend down on 3mg daily --> ordered additional 1mg for today and placed order for 3/4mg alternating doses and will monitor INR in AM/further adjustments as needed in light of continued abx use will monitor INR daily (5) Acute renal insufficiency: *Acute kidney failure, CKD3 Suspect due to overdiuresis with Lasix in setting of loose stools with Cr 2.29 on admission renal function has been gradually improving off his lasix and remained stable without increased weight gain/pulm edema/shortness of breath and rec to continue to hold at discharge until diarrhea improved/resolved to prevent dehydration/worsening kidney function Cr 1.48 prior to discharge (6) Atrial fibrillation: chronic and stable , continued rate control with metoprolol tartrate and diltiazem Anticoagulation as above --> increased metoprolol to 25mg BID for evening 8 given elevated HRs and appears he is possibly to be on 50mg BID at home but unsure of his actual dose and then BPs more borderline and decision to back down to 25mg BID at discharge Rates remained stable 80-100s on monitor, asymptomatic (7) History of Abhijit-en-Y gastric bypass: pt is bothered by persistent diarrhea, negative for infection, now on fiber, cholestyramine, and imodium with some improvement --> increased fiber to BID, and scheduled imodium as above needing GI outpt f/u (8) Recurrent deep vein thrombosis (DVT): chronic and stable Anticoagulation as above, INR therapeutic and monitor need outpt monitoring of INR (9) RANDY on CPAP: chronic and stable CPAP at bedtime per RT notes, patient states he DOES NOT WEAR all the time at home and does n't want to wear here -- would encourage compliance, especially if remaining inpatient (has been ~2 weeks) recommended he have someone bring in to rehab to use (10) Hypokalemia: acute moderate risk, self limited furosemide has been held,, stools are improving as above decision to hold lasix/PO Kcl at d/c as outlined above and can resume if needed outpatient (11) Hypomagnesemia: acute self limited, replaced. and keeping closer to 2 and stable (12) BMI 45.0-49.9, adult: *Morbid obesity with BMI=45 chronic and stable but directly affects his care Patient admitted with weakness, difficulty ambulating has BMI=45 (13) Left hip pain: L hip and b/l knees -- significant osteoarthritis ortho consulted pain control imaging ordered for further eval -- benefit from hip replacement per ortho but will need further discussion outpatient regarding possible injection first Lyme testing negative Renal US to eval for stones given hx, negative for such. tx uti as above -- negative PT/OT and rehab at d/c (14) Hypocalcemia: ? 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 Ca 7.7, however albumin 1.7 and corrected Ca 9.5 Plan discharged to [facility] completed course abx for UTI while inpatient continue bowel regimen w/ questran BID, metamucil BID, and scheduled daily imodium for now Needs: outpt f/u GI for chronic/ongoing diarrhea for endoscopic evaluation as well as f/u chromogranin A/celiac panel labs outpt f/u ortho for hip injections vs replacement as well as knee infections outpt f/u wound clinic for left lateral leg/culture results Total Time Total Time Spent Total Time Spent (In Minutes): 70 Discharge Plan Discharge Items Patient Disposition: Transfer [facility] Reason For Visit: HYPOKALEMIA, HYPOMAGNESEMIA, ELEVATED INR Discharge Diagnosis: Weakness, Dehydration, UTI, Elevated INR, Diarrhea Goals: You have been hospitalized for an acute medical problem. During your stay at [facility], we have made an effort to correct the problem that brought you to the hospital while keeping you as comfortable as possible. Medications were used to bring your condition under control and your discharge instructions will include directions for any medications you should take after leaving the hospital. Please make sure you see your Primary Care Provider as part of your follow up plan. Activity: As commented below Activity Comment: increase activity with therapy Non-emergency contact: Primary Care Provider, Surgeon and Cotton Ball Machine Tender Call non-emergency contact if: you have any medication questions, your symptoms worsen, your pain is concerning for you and you have a fever Follow-up/Referrals: Wanda Lantigua PA-C [Primary Care Provider] - Ignacio Suarez MD [Surgeon] - Peewee Gallardo PA-C [Physician [employer]] - Diet: Heart Healthy Addtl Attending Provider Instructions: You have been hospitalized for weakness and found to have a UTI which you completed a course of IV antibiotics for while in the hospital. You had ongoing diarrhea, and stool testing has all been negative for infectious causes and we consulted GI team. We also performed imaging of your abdomen which did not show anything acutely abnormal and while continued diarrhea, this has slowed down and you will continue a regimen as follows at discharge to help with symptoms: - Questran -- twice daily - Metamucil (fiber) -- twice daily to help bulk up stools/decrease diarrhea - Loperamide (Imodium) - once daily - Probiotic once daily We also had orthopedics eval given knee/hip pain and you can continue topical Voltaren for pain control and can have follow up outpatient for consideration for injections with Dr Suarez. Your kidney function has improved since holding your diuretic (lasix) and given losses in diarrhea we have continued to hold this at discharge and you should follow up with primary care before resuming this medication unless you have significant weight gain/shortness of breath or increased swelling in the legs. We did a wound culture from your leg which didn't have any organisms or white blood cells but cultures pending at discharge and you should continue daily dressing changes and have wound care follow up. Your INR for coumadin was VERY elevated. We have restarted at lower dosing and you should alternate 3/4mg tablets every other day with 3mg on Sunday, Sunday, , Sunday (4mg for Sunday, Sunday, Sunday) and should have INR checked in the next 3-4 days to ensure remaining stable and no further adjustments required. Your metoprolol was given at low dose in the hospital and we increased this to 25mg twice daily and your home medications listed 50mg twice daily. Given blood pressures on the lower side,you should continue the lower dose 25mg twice daily but hold if your BP is <100 systolically or HR <60. Therapy has evaluated you and arrangements made for rehab. It is encourage to bring your CPAP and continue to use this at night. You have been making improvements with mobility since treatment of UTI and other things as above and are encouraged to continue! Please follow up with primary care in the nexr 7-10 days to monitor your progress. Please follow up with orthopedics for knee/hip pain and injections. Please follow up with GI for outpatient scope and results of send out testing for further evaluation of chronic diarrhea. Please return to the ER with any fevers/chills, chest pain, shortness of breath, increased weakness Pending Studies at Discharge: Yes Studies:: Celiac Testing, Chromogranin A level Stand-Alone Forms: My [facility] Skilled Items Patient informed of condition?: Yes DNR: Yes Discharge Level of Care: Skilled Communicable Disease: No Discharge Prognosis: Improving Lines: None Urinary Catheter: No Medications and DC Order Prescriptions: New warfarin 2 mg tablet See Rx Instructions .ROUTE .COMPLEX Qty: 90 0RF Rx Instructions: please take 3mg Sunday, Sunday, , Sunday and 4mg on Sunday, Sunday, Fridays cholestyramine-aspartame [Prevalite] 4 gram Powder In Packet 4 g PO BID@1000,2200 Qty: 60 0RF diclofenac sodium [Voltaren Arthritis Pain] 1 % Gel 2 g EXT BID Qty: 100 0RF Fiber (with aspartame) 3.4 gram/5.8 gram powder 5.43080 g PO BID Qty: 660 0RF loperamide [Imodium A-D] 2 mg capsule 2 mg PO DAILY Qty: 30 0RF Lactobacillus acidophilus 1 billion cell capsule 1,000 mmu cells PO DAILY Qty: 30 0RF Continued atorvastatin 20 mg tablet 20 mg PO DAILY Qty: 90 3RF omeprazole 20 mg tablet,delayed release (DR/EC) 20 mg PO DAILY Qty: 30 5RF diltiazem HCl 120 mg capsule,extended release 12 hr 120 mg PO DAILY Qty: 90 3RF fexofenadine [Anju Allergy] 180 mg Tablet 180 mg PO DAILY ascorbic acid (vitamin C) [Vitamin C] 500 mg Tablet,Chewable 500 mg PO DAILY cholecalciferol (vitamin D3) [Vitamin D3] 400 unit Tablet,Chewable 400 unit PO DAILY calcium-vitamin D3-vitamin K [Viactiv] 650 mg-12.5 mcg-40 mcg Tablet,Chewable 1 tab PO DAILY aspirin [Ecotrin Low Strength] 81 mg Tablet,Delayed Release (Dr/Ec) 81 mg PO QAM Qty: 30 3RF oxybutynin chloride 10 mg tablet extended release 24 hr 10 mg PO BID miconazole nitrate [Desenex] 2 % Powder 1 applic EXT BID Qty: 85 0RF Rx Instructions: groin multivitamin Tablet 1 tab PO DAILY polyethylene glycol 3350 [Miralax] 17 gram/dose Powder 17 g PO DAILY Changed metoprolol tartrate 50 mg tablet 25 mg PO BID Qty: 180 3RF Discontinued potassium chloride 10 mEq tablet extended release 10 meq PO DAILY Qty: 90 3RF furosemide 20 mg tablet 40 mg PO DAILY Qty: 180 3RF Rx Instructions: take 1-2 tablets, po daily warfarin 5 mg Tablet 5 mg PO DAILY@1600 Qty: 30 0RF Discharge Orders: Discharge Order (Routine); Ordered 04/28/22 Ordered By: Aubree Case/Other Patient Handouts: Managing Type 2 Diabetes Admission Data Admit Date/Time: 04/13/22 16:44 Attending Provider: Brent Enrique Admit Provider: Justin Hager Primary Care Provider: Wanda Lantigua Other Providers: Justin Hager ; Angus Paul ; John Plaza ; Iliana Santiago ; Anali Bright ; Shanell Mccain ; Ashley Toledo ; Elieser Cooley ; Manan Blackwood ; Fior Pennington ; Nikki Andujar ; Nicho Locke ; Pratibha Romero ; Darling Champagne ; Sharon Arrington ; Candice Mendoza ; Sita Agee ; Peewee Gallardo ; Piter Freed ; Alley Coello ; Lavern Lim Jr ; [facility] ; [place],[facility] ; Guillermo Howard Other Interventions: Discharge Summary Assessment (RN) Last Done: 04/28/22 14:05 Supervising Physician Co-Signing Physician Notes The patient was seen by me. Chart reviewed. Case discussed with NIRU Flanagan. Agree with assessment and plan. He will be discharged to [facility] today, 04/28 Coding Level of Care Code 67852 INP/OBS DISCH >30 MIN Diagnoses Generalized weakness R53.1 Diarrhea R19.7 Diarrhea type: unspecified type Recurrent urinary tract infection N39.0 Supratherapeutic INR R79.1 Acute renal insufficiency N28.9 Atrial fibrillation I48.91 History of Abhijit-en-Y gastric bypass Z98.84 Recurrent deep vein thrombosis (DVT) I82.409 RANDY on CPAP G47.33; Z99.89 Hypokalemia E87.6 Hypomagnesemia E83.42 BMI 45.0-49.9, adult Z68.42 Left hip pain M25.552 Hypocalcemia E83.51
[2022-05-02 02:32] LABS: IgA Serum 622 mg/dL (70-320); Tis Trans IgA <1.0 U/mL
== END 2022-04-28 15:25 | DRG 689 ==
LOC: ED 13:49 → SUATTDRO 16:44 → 2N 16:44